=== PATIENT | male | born 1980 | race Caucasian/White ===

== ENCOUNTER 2016-06-28 16:41 | Inpatient (IN) | payer MEDICAID ==
[~2016-06-28] VITALS: Ht 165.1 cm; Wt 80.0 kg
[2016-06-28] MEDS ORDERED: SOD CHLORIDE 0.9% 1,000 ML IV STA ×2 (16:45→17:10)
[2016-06-28] MEDS ORDERED: AMIODARONE 150MG/D5W BOLUS IV* STA (16:45)
[2016-06-28] MEDS ORDERED: AMIODARONE 900MG/D5W DRIP 500 ML IV STA ×2 (16:45→18:17)
[2016-06-28] MEDS ORDERED: FENTAnyl 50 MCG/ML VIAL IV STA (16:50)
[2016-06-28] MEDS ORDERED: SODIUM CHLORIDE 0.9% 500 ML BAG IV* STA (16:50)
[2016-06-28] MEDS ORDERED: VECURONIUM 100 MG in DEXTROSE 5% 100 ML IV ONE (16:50)
[2016-06-28] MEDS ORDERED: MIDAZOLAM 1 MG/ML 2 ML INJ IV ONE ×3 (17:00→19:00)
[2016-06-28] MEDS ORDERED: MAGNESIUM SULFATE 1 GM/D5W 100 ML IVPB ONE (17:00)
[2016-06-28] MEDS ORDERED: FENTAnyl 50 MCG/ML VIAL IV PRN (17:00)
--- NOTE | 2016-06-28 17:00 | RADRPT ---
PROCEDURE: XR Chest. CLINICAL INDICATION: Chest Pain. TECHNIQUE: PA and Lateral views of the chest were obtained. COMPARISON: None. FINDINGS: The soft tissues are normal. The bony elements are normal. An endotracheal tube is positioned at T 3. Defibrillator pads are noted over the upper right chest wall and lower left chest wall. The sto mach is distended with air. There is a poor inspiration. The heart is mildly enlarged. The cardio mediastinal silhouette and hilar structures are normal. The pulmonary vasculature is normal. There i s a left-sided aorta. Then infiltrates are suspected in the right upper lobe. The costophrenic angl es are normal. IMPRESSION: 1. Gastrectasis. The stomach is distended with air. 2. Indicative is well-positioned at T3. 3. There are faint infiltrates in the right upper lobe. 4. Mild cardiomegaly. 5. Suboptimal inspiratory effort/expiratory phase radiograph. RPTAT:AAJJ Physician Fernanda Date Time Electronically viewed and signed by Reza Sanabria Physician on 06/28/2016 17:00 VEENA/
[2016-06-28 17:01] LABS: ADD SCAN DIFF NO
[2016-06-28 17:03] LABS: ABNORMAL IP MESSAGE 1; HEMATOCRIT 45.2 % (42.0-52.0); HEMOGLOBIN 14.4 g/dl (14.0-18.0); MEAN CORPUSCULAR HEMOGLOBIN 30.3 pg (29.0-33.0); MEAN CORPUSCULAR HGB CONC 31.9 g/dl (32.0-37.0); MEAN PLATELET VOLUME 9.5 fl (7.4-10.4); PLATELET COUNT 239 10^3/UL (140-415); RED BLOOD COUNT 4.76 10^6/ul (4.70-6.10); RED CELL DISTRIBUTION WIDTH 12.4 % (11.5-14.5); WHITE BLOOD COUNT 13.9 10^3/ul (4.8-10.8)
[2016-06-28 17:13] LABS: INR 1.07; PROTIME 13.9 Sec (12.2-14.2); PT RATIO 1.1
[2016-06-28 17:14] LABS: PARTIAL THROMBOPLASTIN TIME 32.5 Sec (25.0-35.0)
[2016-06-28 17:15] LABS: ALBUMIN 4.9 g/dl (3.3-4.9)
[2016-06-28 17:16] LABS: POTASSIUM 3.6 mmol/L (3.5-5.1)
[2016-06-28 17:18] LABS: ALBUMIN/GLOBULIN RATIO 1.53; BILIRUBIN,INDIRECT 0.3 mg/dl (0-1.1); BILIRUBIN,TOTAL 0.3 mg/dl (0.2-1.3); CREATININE 1.42 mg/dl (0.61-1.24); TOTAL PROTEIN 8.1 g/dl (6.1-8.1)
[2016-06-28 17:19] LABS: CALCIUM 9.1 mg/dl (8.4-10.2); MAGNESIUM 2.3 mg/dl (1.7-2.5); PHOSPHORUS 9.9 mg/dl (2.5-4.9)
--- NOTE | 2016-06-28 17:21 | ERA ---
ER Documentation Chief Complaint Date/Time DATE: 06/28/16 TIME: 17:16 Chief Complaint ROSC HPI 36-year-old male, unknown past medical history who presents after V. fib cardiac arrest. The patient had a witnessed cardiac arrest. The patient was apparently loading some materials into a truck and collapse. EMS on arrival, downtime less than 1 minute. The patient did not have an airway. He was in ventricular fibrillation, defibrillation 1, epinephrine 1 with return of spontaneous circulation, no spontaneous movement. The patient was brought to the emergency room. No further history is provided. Patient is critical on arrival but with pulses in a blood pressure. ROS Critical patient Medications Home Meds Unable to Obtain Active Prescriptions or Reported Meds Allergies Allergies: Coded Allergies: Unknown: Unable to obtain (Unverified , 06/28/16) PMhx/Soc Smoking Status: Unknown if ever smoked FmHx Critical patient, unknown Physical Exam Vitals Vital Signs Date Time Temp Pulse Resp B/P Pulse Ox O2 Delivery O2 Flow Rate FiO2 06/28/16 19:20 98 18 100 100 06/28/16 18:52 104 18 92/71 100 Mechanical Ventilator 06/28/16 18:00 146 20 125/79 100 Mechanical Ventilator 06/28/16 17:50 96.7 150 20 125/79 100 Mechanical Ventilator 06/28/16 17:15 118 20 107/70 100 Mechanical Ventilator 06/28/16 16:59 138 18 100 100 06/28/16 16:41 136 132/83 100 Physical Exam General: Unresponsive Head: Normocephalic, atraumatic Eyes: Fixed pupils ENT: Moist mucous membranes Neck: Supple, no lymphadenopathy Respiratory: Decreased spontaneous respirations Cardiovascular: No murmurs rubs or gallops, tachycardia Abdominal: Soft, non-protuberant, no pulsatile mass : Deferred MSK: No spontaneous motor activity Neurologic: No spontaneous neurologic activity Skin: No evidence of trauma Result Diagram: 06/28/16 1655 06/28/16 1655 Results 24 hrs Laboratory Tests Test 06/28/16 16:45 06/28/16 16:55 06/28/16 17:35 06/28/16 18:00 Blood Gas Specimen Source Blood arterial Arterial Blood Date Drawn 06/28/2016 6:18:38 PM Arterial Blood pH (Temp corrected) 7.252 Arterial Blood pCO2 (Temp correct) 33.9mmhg Arterial Blood pO2 (Temp corrected) 127.1mmHG Arterial Blood HCO3 14.6mmol/L Arterial Blood Base Excess -11.5mmol/L Arterial Blood Oxygen Saturation 97.6mmHG Christ Test ACCEPTAB Arterial Blood Gas Puncture Site Right Radial Arterial Blood Carboxyhemoglobin 0.3% Arterial Blood Methemoglobin 0.4% Blood Gas A-a O2 Differential 552.0mmHg Oxyhemoglobin Percent 96.9% Total Hemoglobin 14.6g/dl Blood Gas Temperature 37.0C Blood Gas Respiration Rate 18.0 Blood Gas Actual Respiration Rate 18 Blood Gas Modality VENT - AC FiO2 100.0% Blood Gas Tidal Volume 500.0mL Blood Gas Low PEEP Setting 5.0cmH2O Blood Gas Critical Value Read Back DR. DEAN Blood Gas Notified Whom Isidro Blood Gas Notified Time 06/28/2016 6:26:14 PM White Blood Count 13.910^3/ul Red Blood Count 4.7610^6/ul Hemoglobin 14.4g/dl Hematocrit 45.2% Mean Corpuscular Volume 95.0fl Mean Corpuscular Hemoglobin 30.3pg Mean Corpuscular Hemoglobin Concent 31.9g/dl Red Cell Distribution Width 12.4% Platelet Count 80892^3/UL Mean Platelet Volume 9.5fl Neutrophils % 38.0% Band Neutrophils % 10.0% Lymphocytes % 33.0% Reactive Lymphocytes % 13.0% Monocytes % 2.0% Eosinophils % 3.0% Basophils % 1.0% Neutrophils # 5.310^3/ul Lymphocytes # 4.610^3/ul Monocytes # 0.310^3/ul Eosinophils # 0.410^3/ul Basophils # 0.110^3/ul Platelet Estimate PLT APPEAR ADEQUATE Large Platelets OCCASIONAL Prothrombin Time 13.9Sec Prothrombin Time Ratio 1.1 INR International Normalized Ratio 1.07 Activated Partial Thromboplast Time 32.5Sec Sodium Level 144mmol/L Potassium Level 3.6mmol/L Chloride Level 104mmol/L Carbon Dioxide Level 11mmol/L Anion Gap 33 Blood Urea Nitrogen 19mg/dl Creatinine 1.42mg/dl Glucose Level 254mg/dl Calcium Level 9.1mg/dl Phosphorus Level 9.9mg/dl Magnesium Level 2.3mg/dl Total Bilirubin 0.3mg/dl Direct Bilirubin 0.00mg/dl Indirect Bilirubin 0.3mg/dl Aspartate Amino Transf (AST/SGOT) 788IU/L Alanine Aminotransferase (ALT/SGPT) 1062IU/L Alkaline Phosphatase 84IU/L Troponin I 0.026ng/ml B-Type Natriuretic Peptide 301PG/ML Total Protein 8.1g/dl Albumin 4.9g/dl Globulin 3.20g/dl Albumin/Globulin Ratio 1.53 Ethyl Alcohol Level < 10.0mg/dl Lactic Acid Level 6.1mmol/L Urine Color LT. YELLOW Urine Clarity CLEAR Urine pH 6.0 Urine Specific [place] 1.025 Urine Ketones NEGATIVE Urine Nitrite NEGATIVE Urine Bilirubin NEGATIVE Urine Urobilinogen 0.2 E.U./dL Urine Leukocyte Esterase NEGATIVE Urine Microscopic RBC 5-10/HPF Urine Microscopic WBC 0-2/HPF Urine Squamous Epithelial Cells RARE Urine Bacteria MODERATE Urine Hemoglobin 2+ Urine Glucose 0.1%% Urine Total Protein 2+ Urine Opiates Screen Negative Urine Barbiturates Negative Urine Amphetamines Screen Negative Urine Benzodiazepines Screen Positive Urine Cocaine Screen Negative Urine Cannabinoids Negative Test 06/28/16 19:55 Lactic Acid Level 3.4mmol/L Current Medications Medications (Trade) Dose Ordered Sig/Antoine Route PRN Reason Start Time Stop Time Status Last Admin Dose Admin Sodium Chloride 1,000 ml @ 1,000 mls/hr Q1H STAT IV 06/28/16 16:45 06/28/16 17:44 DC 06/28/16 16:45 Magnesium Sulfate/ Dextrose (Magnesium Sulfate 1 Gm/D5W) 100 ml @ 100 mls/hr ONCE ONCE IVPB 06/28/16 17:00 06/28/16 17:59 DC 06/28/16 17:03 Amiodarone HCl 100 ml 100 ml ONCE STAT IV* 06/28/16 16:45 06/28/16 16:49 DC 06/28/16 17:15 Amiodarone HCl (Cordarone 900mg/ D5W Drip) 500 ml @ 0 mls/hr ONCE STAT IV 06/28/16 16:45 06/28/16 16:49 DC Sodium Chloride (NS) 500 ml ONCE STAT IV* 06/28/16 16:50 06/28/16 16:52 DC 06/28/16 17:49 Fentanyl (Sublimaze) 50 mcg ONCE STAT IV 06/28/16 16:50 06/28/16 16:52 DC 06/28/16 17:08 Fentanyl (Sublimaze) 25 mcg Q10M PRN IV SEDATION 06/28/16 17:00 Midazolam HCl 2 mg 2 mg ONCE ONCE IV 06/28/16 17:00 06/28/16 17:01 DC 06/28/16 17:05 Midazolam HCl 50 ml @ 2 mls/hr ONCE IV 06/28/16 17:00 06/28/16 18:13 Vecuronium [place] 100 mg/ Dextrose 100 ml @ 4.38 mls/hr [id number] ONCE IV 06/28/16 16:50 06/28/16 17:09 DC Vecuronium [place] 100 mg/ Sodium Chloride 100 ml @ 4.38 mls/hr [id number] ONCE IV 06/28/16 17:30 06/29/16 16:19 06/28/16 18:27 Sodium Chloride (NS) 1,000 ml @ 1,000 mls/hr Q1H STAT IV 06/28/16 17:10 06/28/16 18:09 DC 06/28/16 17:56 Fentanyl (Sublimaze) 100 mcg ONCE ONCE IV 06/28/16 18:00 06/28/16 18:01 DC 06/28/16 17:57 Midazolam HCl (Versed) 2 mg ONCE ONCE IV 06/28/16 18:00 06/28/16 18:01 DC 06/28/16 17:56 Aspirin 300 mg 300 mg ONCE ONCE WA 06/28/16 18:00 06/28/16 18:01 DC 06/28/16 18:09 Amiodarone HCl (Cordarone 900mg/ D5W Drip) 500 ml @ 0 mls/hr ONCE STAT IV 06/28/16 18:17 06/28/16 18:18 DC 06/28/16 18:56 Fentanyl (Sublimaze) 100 mcg ONCE ONCE IV 06/28/16 19:00 06/28/16 19:01 DC 06/28/16 18:45 Midazolam HCl 2 mg 2 mg ONCE ONCE IV 06/28/16 19:00 06/28/16 19:01 DC 06/28/16 18:45 Fentanyl (Sublimaze) 100 ml @ 2.5 mls/hr TITRATE IV 06/28/16 19:00 06/28/16 19:18 IV Flush 10 ml 10 ml STK-MED ONCE .ROUTE 06/28/16 19:06 06/28/16 19:07 DC 06/28/16 19:40 Sodium Chloride 100 ml @ ud STK-MED ONCE .ROUTE 06/28/16 19:06 06/28/16 19:07 DC 06/28/16 19:41 Iohexol (Omnipaque) 0 ml @ ud STK-MED ONCE .ROUTE 06/28/16 19:06 06/28/16 19:07 DC Iodixanol 100 ml 100 ml STK-MED ONCE .ROUTE 06/28/16 19:06 06/28/16 19:07 DC 06/28/16 19:41 Vancomycin HCl 250 ml @ 125 mls/hr ONCE STAT IVPB 06/28/16 20:31 06/28/16 22:30 Piperacillin Sod/ Tazobactam Sod 100 ml @ 200 mls/hr ONCE ONCE IVPB 06/28/16 21:00 06/28/16 21:29 Clindamycin HCl/ Dextrose 50 ml @ 100 mls/hr ONCE ONCE IVPB 06/28/16 21:00 06/28/16 21:29 Sodium Chloride (NS) 1,000 ml @ 100 mls/hr Q10H IV 06/28/16 20:42 UNV Famotidine (Pepcid Iv) 20 mg Q12 IV 06/28/16 21:00 UNV Procedures/MDM EKG, MONITORS, & DIAGNOSTIC IMAGING: Rhythm strip: Rate/Rhythm: Sinus tachycardia, subtle ST depressions in precordial leads, significant artifact Impression: Potential ischemia EKG: I reviewed and interpreted a 12-lead EKG. Rhythm: Sinus tachycardia Ectopy: None Intervals: No abnormalities, normal QRS and QTC, no delta waves ST segments: No elevations or depressions T waves: No contiguous inversions Chest x-ray #1 Chest x-ray: I reviewed and interpreted a 1 view of the chest Mediastinum: No enlargement Cardiac silhouette: No cardiomegaly Airspace: Clear lung chavez bilaterally without evidence of pneumothorax Bones: No evidence of fracture Endotracheal tube in good position Chest x-ray #2 Chest x-ray: I reviewed and interpreted a 1 view of the chest Mediastinum: No enlargement Cardiac silhouette: No cardiomegaly Airspace: Clear lung chavez bilaterally without evidence of pneumothorax Bones: No evidence of fracture Endotracheal tube in good position, central line in good position CT brain: No acute intracranial process CT cervical spine: No acute fracture CTPA: IMPRESSION: No definite evidence of pulmonary emboli. Bilateral lower lobe atelectasis/ consolidation and bilateral upper lobe partial atelectasis. Diffuse "ground- glass" lung densities most suggestive of pulmonary edema. Please see above. RPTAT: HJES PROCEDURES: Central Line Note: Consent: Critical Indication: Critically ill patient requiring specialized vascular access for fluid or pressor management Location: Right IJ Procedure: Sterile procedure was observed throughout insertion of the central line. The insertion site was prepped with sterile solution. Ultrasound-guided identification of the vein was performed. Insertion of a needle into the vein was obtained with return of dark, nonpulsatile blood. The wire was then threaded through the needle without complication. The wire was then identified within the vein using ultrasound. A small skin incision was made, the needle was removed intact, dilation of the vein was performed and insertion of a triple lumen catheter was completed. The catheter was then sutured to the skin. All 3 ports jamaal back and flushed without difficulty. A sterile dressing was applied. The patient tolerated the procedure well there were no complications. Emergency Bedside Ultrasound: Indication: Central line Probe Type: Linear Findings: Dynamic ultrasound utilizing compressive technique with both linear and horizontal views, additional images showing wire within the venous system were obtained. The images were saved along with patient information on a paper chart to be scanned into EMR. The patient tolerated the procedure well and there were no complications. A post-line chest x-ray was ordered as indicated. Intubation Note: Indication: Airway protection Consent: This was an emergent situation, implied consent was observed RSI Medications: Etomidate 20 mg, Rocuronium 100 mg Tube size: 7.5 Secured at: 23 Procedure: Endotracheal intubation was performed. The patient was preoxygenated with supplemental oxygen, the room was set up with emergent airway equipment including [id number], suction, adjunct airways. Direct visualization of the cords was performed with direct laryngoscopy using a 4.0 Mac blade, insertion of the endotracheal tube through the cords was visualized by the non acoustic operator. Bilateral breath sounds were auscultated, color change was observed. The tube was then secured in a postintubation chest x-ray was ordered. The patient tolerated the procedure well there were no complications. LAB INTERPRETATION: Slight leukocytosis, lactic acid, mild renal insufficiency, ABG with significant AA gradient, shunt physiology MEDICAL DECISION MAKING: The patient presents with ventricular fibrillation cardiac arrest with minimal downtime. The patient has no spontaneous neurologic activity upon arrival. The patient has return of spontaneous circulation. Patient is a candidate for hypothermia protocol. Unclear etiology likely cardiogenic versus arrhythmia genic. The patient's initial EKG in the field was concerning for possible cardiac ischemia prompting STEMI code activation. Prompt conversation and discussion with the on-call settlement processor, Dr. Waller. She reviewed the EKG is in the case. She does not feel the patient is a candidate for emergent Personal Banking Officer activation. She recommends medical management, prompt cardiology and EP consultation. The patient was intubated upon arrival.. The patient was started on hypothermic protocol given no spontaneous neurologic activity, no contraindications. A central line was placed to facilitate hypothermia protocol. A CT imaging of the brain and cervical spine were ordered though there was no significant evidence of trauma the patient did collapse to the ground. The patient was started emergently on magnesium, amiodarone bolus and drip. The patient remained symptomatically stable the sinus tachycardia. IV fluids initiated, blood cultures initiated. No evidence of sepsis. ER COURSE: The patient was started on hypothermia protocol. The patient had intermittent movement of upper extremities but no movement of lower extremities. CT imaging of the head and cervical spine are negative. The patient's arterial blood gas shows evidence of shunt physiology. This reason the concern for possible aspiration versus PE. CTPA ordered. The benefits outweigh the risks given the patient's creatinine. IV fluid initiated. The patient received 2.5 L, greater than 30 cc/kg bolus of saline. Blood cultures taken. Lactic acid elevated likely secondary to the patient's cardiac arrest. The patient's CT shows evidence of possible atelectasis versus infiltrates. Given the possibility of aspiration I believe empiric coverage with vancomycin, Zosyn and clindamycin would be reasonable. The patient does have leukocytosis and lactic acidosis but I believe these are secondary to the patient's cardiac arrest rather than sepsis. I do not believe this is consistent with sepsis however the patient has been empirically treated. The patient's blood pressure remained stable and lactic acid is clean. No indication for pressors at this time. No family information is available at this time DISPOSITION PLAN: ICU CONSULTATION: Cardiology, interventional: Dr. Waller Accepting care team and consultations: I discussed the current laboratory data, diagnostic imaging and emergency care provided. Admitting team: Dr. Borrero Admitting team indication: Insurance directed Critical Care Note: Total time: 71 minutes Indication/Organ System Threat: Cardiac arrest with return of spontaneous circulation I spent the above amount of critical care time with the patient, not including billable procedures. This included chart review, consultations, repeat bedside evaluations, and titration of appropriate medications to prevent cardiopulmonary or respiratory collapse. Departure Diagnosis: Primary Impression: Cardiac arrest Additional Impressions: Aspiration pneumonia Qualified Code: J69.0 - Aspiration pneumonia, unspecified aspiration pneumonia type, unspecified laterality, unspecified part of lung Lactic acidosis Ventricular fibrillation Acute renal insufficiency Condition: Critical NEHEMIAS DEAN MD Jun 28, 2016 17:21
[2016-06-28 17:30] LABS: TROPONIN-I 0.026 ng/ml (0.00-0.12)
[2016-06-28] MEDS ORDERED: VECURONIUM IV ONE (17:30)
[2016-06-28] MEDS ORDERED: SOD CHLORIDE 0.9% IV ONE (17:30)
--- NOTE | 2016-06-28 17:37 | RADRPT ---
PROCEDURE: CT Cervical Spine without contrast. CLINICAL INDICATION: Trauma. Neck pain. TECHNIQUE: Helical axial sections were obtained through the cervical spine without intravenous con trast enhancement. Sagittal and coronal reformatted images were accomplished using the data from th e axial images. Total exam DLP is 437.46 mGy-cm. CTDIvol is 22.16 mGy. One or more of the followi ng dose reduction techniques were used: Automated exposure control, adjustment of the mA and/or kV a ccording to patient size, use of iterative reconstruction technique. COMPARISON: No prior studies are available for comparison. FINDINGS: There is normal stature and alignment of the vertebrae. There is no fracture. The disk height is normal. There is no lytic or blastic lesion. The paravertebral soft tissues are normal. There is an endotracheal tube present and there is a right internal jugular vein catheter present. The distal tips of the endotracheal tube and right IJ catheter are not visualized. IMPRESSION: 1. Normal cervical spine with no fracture or malalignment. 2. Endotracheal tube and right IJ catheter. RPTAT: QQ .Oscar Velazquez MD, MD Date Time Electronically viewed and signed by .Oscar Velazquez MD, on 06/28/2016 17:37 .R/
--- NOTE | 2016-06-28 17:39 | RADRPT ---
PROCEDURE: CT Brain without contrast. CLINICAL INDICATION: Trauma. Headache. TECHNIQUE: A CT of the brain without contrast was performed utilizing axial sections from the skul l base through the vertex. The patient was scanned without intravenous contrast enhancement. Sagitta l and coronal reformatted images were obtained using the data from the axial images. Total exam DLP is 720.23 mGy-cm. CTDIvol is 44.33 mGy. One or more of the following dose reduction techniques we re used: Automated exposure control, adjustment of the mA and/or kV according to patient size, use o f iterative reconstruction technique. COMPARISON: None available FINDINGS: There is normal whitten-white matter differentiation. The ventricles and cisterns are normal. There is no intracranial hemorrhage or space-occupying lesion. There is no skull fracture or lytic lesion. IMPRESSION: 1. Normal noncontrast CT scan of the brain. 2. No intracranial hemorrhage. RPTAT: QQ .Oscar Velazquez MD, MD Date Time Electronically viewed and signed by .Oscar Velazquez MD, MD on 06/28/2016 17:39 .R/
--- NOTE | 2016-06-28 17:46 | RADRPT ---
PROCEDURE: XR Chest. CLINICAL INDICATION: Check central line position. TECHNIQUE: Single frontal view. 06/28/2016. 1734 hours. COMPARISON: 06/28/2016. 1645 hours. FINDINGS: There is a new right internal jugular vein catheter with the tip in the mid superior vena cava. The endotracheal tube should be advanced approximately 2 cm as the tip is at the level of the mid clavi cles and is 4 cm above the tabatha. There is mild diffuse air space and interstitial disease consist ent with pulmonary edema. There is no focal airspace disease. The heart is mildly enlarged. There is no pleural effusion. There is no pneumothorax. IMPRESSION: 1. Right IJ catheter in satisfactory position. No pneumothorax. 2. Endotracheal tube should be advanced approximately 2 cm. 3. New pulmonary edema. 4. Mild cardiomegaly. RPTAT: QQ .Oscar Velazquez MD, Date Time Electronically viewed and signed by .Oscar Velazquez MD, on 06/28/2016 17:46 .R/
[2016-06-28 17:55] LABS: ETHANOL < 10.0 mg/dl
[2016-06-28 17:59] LABS: BASOPHIL # 0.1 10^3/ul (0.0-0.1); EOSINOPHILS # 0.4 10^3/ul (0.0-0.5); LYMPHOCYTES # 4.6 10^3/ul (0.8-2.9); MONOCYTE # 0.3 10^3/ul (0.3-0.9); NEUTROPHIL # 5.3 10^3/ul (1.6-7.5)
[2016-06-28 18:00] LABS: PLATELET ESTIMATE PLT APPEAR ADEQUATE
[2016-06-28] MEDS ORDERED: ASPIRIN 300 MG SUPP PR ONE (18:00)
[2016-06-28] MEDS ORDERED: FENTAnyl 50 MCG/ML VIAL IV ONE ×2 (18:00→19:00)
[2016-06-28] MEDS: MIDAZOLAM (DRIP) 50 mg/50 mL 50 ML IV SCH (18:13)
[2016-06-28 18:26] LABS: ADD UMIC YES; URINE BILIRUBIN (Dip) NEGATIVE (NEGATIVE); URINE BLOOD (Dip) 2+ (NEGATIVE); URINE COLOR LT. YELLOW (YELLOW); URINE KETONES (Dip) NEGATIVE (NEGATIVE); URINE LEUKOCYTE ESTERASE (Dip) NEGATIVE (NEGATIVE); URINE NITRITE (Dip) NEGATIVE (NEGATIVE); URINE TOTAL PROTEIN (Dip) 2+ (NEGATIVE); URINE UROBILINOGEN (Dip) 0.2 E.U./dL (0.1-1.0)
[2016-06-28 18:26] LABS: Allen Test ACCEPTAB; Arterial Base Excess -11.5 mmol/L (-3.0-3); Arterial COHb 0.3 % (0.0-3.0); Arterial Fraction of Oxyhgb 96.9 % (93.0-99.0); Arterial HCO3 14.6 mmol/L (22.0-26.0); Arterial MetHb 0.4 % (0.0-1.5); Arterial Total Hemglobin 14.6 g/dl (12.0-18.0); MODE VENT - AC
[2016-06-28 18:37] LABS: BACTERIA,URINE MODERATE; SQUAMOUS EPITHELIAL CELL,UR RARE
[2016-06-28] MEDS ORDERED: SOD CHLORIDE 0.9% 100 ML ONE (19:06)
[2016-06-28] MEDS ORDERED: IOHEXOL 0 ML ONE (19:06)
[2016-06-28] MEDS ORDERED: IODIXANOL LOCM 100 ML BTL ONE (19:06)
[2016-06-28] MEDS: FENTAnyl (DRIP) 1000 mcg/100mL 100 ML IV SCH (19:18)
[2016-06-28 19:24] LABS: BENZODIAZEPINES Positive (NEGATIVE)
[2016-06-28 19:28] LABS: BARBITURATES Negative (NEGATIVE); CANNABINOIDS Negative (NEGATIVE); COCAINE Negative (NEGATIVE); OPIATES Negative (NEGATIVE)
--- NOTE | 2016-06-28 20:29 | RADRPT ---
PROCEDURE: CTA Chest and pulmonary angiogram. CLINICAL INDICATION: Rule out pulmonary emboli, respiratory failure TECHNIQUE: CT scan of the chest and CT pulmonary angiogram was performed on a multidetector high-r [employer]olution CT scanner. High-resolution thin slice coronal and sagittal imaging was obtained from the axial source images. The patient was examined following the intravenous administration of 90 cc of Visipaque 320. The images were reviewed on a PACS workstation. The total exam CTDI equals 53.84 +2 3.71 mGy, and the total exam DLP equals 900.13 mGy-cm. One or more the following dose reduction techniques were utilized: Automated exposure control, adjus tment of the mA/ or kV according to patient's size, or use of iterative reconstruction technique. COMPARISON: Chest x-ray of 06/28/2016 FINDINGS: The tip of the endotracheal tube is approximately 3.5 cm above the tabatha. Right jugular catheter t ip in superior vena cava. Nasogastric tube tip in proximal duodenum. There is beam-hardening artif act arising from dense contrast in the superior vena cava projected over right upper lobe pulmonary arteries limiting evaluation of these arteries. No definite filling defects suggestive of emboli ar e seen in main, lobar or segmental pulmonary arteries. No thoracic aortic aneurysm or dissection is seen. No enlarged mediastinal lymph nodes are seen. No pleural effusion is seen. There is bilater al lower lobe atelectasis/consolidation and bilateral upper lobe partial atelectasis. There is diff use "ground-glass" lung densities most suggestive of pulmonary edema. IMPRESSION: No definite evidence of pulmonary emboli. Bilateral lower lobe atelectasis/consolidation and bilat eral upper lobe partial atelectasis. Diffuse "ground-glass" lung densities most suggestive of pulmon zhen edema. Please see above. RPTAT: HJES .Mateo Mi MD, MD Date Time Electronically viewed and signed by .Mateo Mi MD, on 06/28/2016 20:29 .S/
[2016-06-28] MEDS ORDERED: VANCOMYCIN 1 GM (PMX) 250 ML IVPB STA (20:31)
--- NOTE | 2016-06-28 20:41 | HP ---
Date/Time of Note Date/Time of Note DATE: 06/28/16 TIME: 20:39 Assessment/Plan VTE Prophylaxis VTE Prophylaxis Intervention: heparin Lines/Catheters IV Catheter Type (from Nrsg): Central Line Central line still needed: Yes (Critical Care Patient) Assessment/Plan Assessment/Plan 1) Cardiac arrest with Respiratory Failure - Admit to ICU - Mechanical Ventilation - Continue Hypothermic Therapy - Maintain Sedation, Anticoagulation and Pressure Support - Skid Adzer - already Consulted x 2 via phone through the ED. No procedure indicated. - Cardiology Consult - Echocardiogram - Unable to do STAT in the ED so ordered Urgent in the AM - CONSULT: Critical Care - Dr. Martinez notified 2) Aspiration pneumonia and/or Pulmonary edema - IV ABX: Clindamycin, Zosyn and Vancomycin - Lasix if urine output drops 3) Lactic acidosis, afebrile, WBCs not elevated. - IV hydration - Serial BMPs and ABGs as needed - Serial Lactic Acids until resolved 4) Ventricular fibrillation - Monitor 5) Acute Renal Injury, mild to moderate injury depending on baseline - Monitor. No specific treatment at this time. HPI/ROS Admit Date/Time Admit Date/Time 06/28/16 2242 Hx of Present Illness Cardiac Arrest in field with spontaneous ROSC after shock. No spontaneous movement here per ER Physician. No intervention per Dr. Waller - Skid Adzer.. On Hypothermia Protocol. Possible Aspiration Pneumonia. Minimal, additional history from ER Physician Notes: 36-year-old male, unknown past medical history who presents after V. fib cardiac arrest. The patient had a witnessed cardiac arrest. The patient was apparently loading some materials into a truck and collapse. EMS on arrival, downtime less than 1 minute. The patient did not have an airway. He was in ventricular fibrillation, defibrillation 1, epinephrine 1 with return of spontaneous circulation, no spontaneous movement. The patient was brought to the emergency room. No further history is provided. Patient is critical on arrival but with pulses in a blood pressure. ER COURSE per ER Physician: The patient presents with ventricular fibrillation cardiac arrest with minimal downtime. The patient has no spontaneous neurologic activity upon arrival. The patient has return of spontaneous circulation. Patient is a candidate for hypothermia protocol. Unclear etiology likely cardiogenic versus arrhythmia genic. The patient's initial EKG in the field was concerning for possible cardiac ischemia prompting STEMI code activation. Prompt conversation and discussion with the on-call rotary screen printing machine operator, Dr. Waller. She reviewed the EKG is in the case. She does not feel the patient is a candidate for emergent Computer Technical Support Specialist activation. She recommends medical management, prompt cardiology and EP consultation. The patient was intubated upon arrival.. The patient was started on hypothermic protocol given no spontaneous neurologic activity, no contraindications. A central line was placed to facilitate hypothermia protocol. A CT imaging of the brain and cervical spine were ordered though there was no significant evidence of trauma the patient did collapse to the ground. The patient was started emergently on magnesium, amiodarone bolus and drip. The patient remained symptomatically stable the sinus tachycardia. IV fluids initiated, blood cultures initiated. No evidence of sepsis. No family information is available at this time ROS Subjective hx not possible: pt critical PMH/Family/Social Past Medical History Medical History: other (Unknown) Past Surgical History Past Surgical Hx: other (Unknown) Family History Significant Family History: other (Unknown) Social History Smoking Status: Unknown if ever smoked Drug Use: other (Unknown) Exam/Review of Systems Vital Signs Vitals Vital Signs Date Time Temp Pulse Resp B/P Pulse Ox O2 Delivery O2 Flow Rate FiO2 06/28/16 19:20 98 18 100 100 06/28/16 18:52 92/71 Mechanical Ventilator 06/28/16 17:50 96.7 Exam Exam Physical Exam General: Patient is intubated and sedated. Head: Normocephalic, atraumatic ENT: Moist mucous membranes Neck: No lymphadenopathy Respiratory: Ventilated Cardiovascular: Regular Rhythm, Rate is on the Tachy Side. No murmur appreciated. Abdominal: Soft, non-protuberant, no pulsatile mass : Deferred MSK: Normal muscle bulk. No further assessment possible due to sedation. Neurologic: Sedated Skin: Hypothermic Therapy initiated. Labs Result Diagram: 06/28/16 1655 06/28/16 165 Medications Medications Home Medications: Unknown Current Medications Medications (Trade) Dose Ordered Sig/Antoine Route PRN Reason Start Time Stop Time Status Last Admin Dose Admin Sodium Chloride 1,000 ml @ 1,000 mls/hr Q1H STAT IV 06/28/16 16:45 06/28/16 17:44 Magnesium Sulfate/ Dextrose (Magnesium Sulfate 1 Gm/D5W) 100 ml @ 100 mls/hr ONCE ONCE IVPB 06/28/16 17:00 06/28/16 17:59 06/28/16 17:03 Amiodarone HCl 100 ml 100 ml ONCE STAT IV* 06/28/16 16:45 06/28/16 16:49 DC Amiodarone HCl (Cordarone 900mg/ D5W Drip) 500 ml @ 0 mls/hr ONCE STAT IV 06/28/16 16:45 06/28/16 16:49 DC Sodium Chloride (NS) 500 ml ONCE STAT IV* 06/28/16 16:50 06/28/16 16:52 DC Fentanyl (Sublimaze) 50 mcg ONCE STAT IV 06/28/16 16:50 06/28/16 16:52 DC 06/28/16 17:08 Fentanyl (Sublimaze) 25 mcg Q10M PRN IV SEDATION 06/28/16 17:00 Midazolam HCl 2 mg 2 mg ONCE ONCE IV 06/28/16 17:00 06/28/16 17:01 DC 06/28/16 17:05 Midazolam HCl 50 ml @ 2 mls/hr ONCE IV 06/28/16 17:00 Vecuronium [place] 100 mg/ Dextrose 100 ml @ 4.38 mls/hr [id number] ONCE IV 06/28/16 16:50 06/28/16 17:09 DC Vecuronium [place] 100 mg/ Sodium Chloride 100 ml @ 4.38 mls/hr [id number] ONCE IV 06/28/16 17:30 06/29/16 16:19 Sodium Chloride (NS) 1,000 ml @ 1,000 mls/hr Q1H STAT IV 06/28/16 17:10 06/28/16 18:09 Procedures Procedures Laboratory Tests Test 06/28/16 16:55 White Blood Count 13.910^3/ul Red Blood Count 4.7610^6/ul Hemoglobin 14.4g/dl Hematocrit 45.2% Mean Corpuscular Volume 95.0fl Mean Corpuscular Hemoglobin 30.3pg Mean Corpuscular Hemoglobin Concent 31.9g/dl Red Cell Distribution Width 12.4% Platelet Count 68281^3/UL Mean Platelet Volume 9.5fl Prothrombin Time 13.9Sec Prothrombin Time Ratio 1.1 INR International Normalized Ratio 1.07 Activated Partial Thromboplast Time 32.5Sec EKG and Rhytm Strip: Interpreted by ER Physician: Rhythm strip: Rate/Rhythm: Sinus tachycardia, subtle ST depressions in precordial leads, significant artifact Impression: Potential ischemia EKG: Rhythm: Sinus tachycardia Ectopy: None Intervals: No abnormalities, normal QRS and QTC, no delta waves ST segments: No elevations or depressions T waves: No contiguous inversions RADIOLOGY: PROCEDURE: CT Brain without contrast. CLINICAL INDICATION: Trauma. Headache. COMPARISON: None available FINDINGS: There is normal whitten-white matter differentiation. The ventricles and cisterns are normal. There is no intracranial hemorrhage or space-occupying lesion. There is no skull fracture or lytic lesion. IMPRESSION: 1. Normal noncontrast CT scan of the brain. 2. No intracranial hemorrhage. PROCEDURE: CTA Chest and pulmonary angiogram. CLINICAL INDICATION: Rule out pulmonary emboli, respiratory failure COMPARISON: Chest x-ray of 06/28/2016 FINDINGS: The tip of the endotracheal tube is approximately 3.5 cm above the tabatha. Right jugular catheter tip in superior vena cava. Nasogastric tube tip in proximal duodenum. There is beam-hardening artifact arising from dense contrast in the superior vena cava projected over right upper lobe pulmonary arteries limiting evaluation of these arteries. No definite filling defects suggestive of emboli are seen in main, lobar or segmental pulmonary arteries. No thoracic aortic aneurysm or dissection is seen. No enlarged mediastinal lymph nodes are seen. No pleural effusion is seen. There is bilateral lower lobe atelectasis/consolidation and bilateral upper lobe partial atelectasis. There is diffuse "ground-glass" lung densities most suggestive of pulmonary edema. IMPRESSION: No definite evidence of pulmonary emboli. Bilateral lower lobe atelectasis/ consolidation and bilateral upper lobe partial atelectasis. Diffuse "ground- glass" lung densities most suggestive of pulmonary edema. Please see above. PROCEDURE: CT Cervical Spine without contrast. CLINICAL INDICATION: Trauma. Neck pain. COMPARISON: No prior studies are available for comparison. FINDINGS: There is normal stature and alignment of the vertebrae. There is no fracture. The disk height is normal. There is no lytic or blastic lesion. The paravertebral soft tissues are normal. There is an endotracheal tube present and there is a right internal jugular vein catheter present. The distal tips of the endotracheal tube and right IJ catheter are not visualized. IMPRESSION: 1. Normal cervical spine with no fracture or malalignment. 2. Endotracheal tube and right IJ catheter. PROCEDURES: Central Line and Intubation done in the ED. Departure Diagnosis: Primary Impression: Cardiac arrest Additional Impression: Ventricular fibrillation FLORIAN WU DO Jun 28, 2016 20:41 ICU CONSULTATION: Cardiology, interventional: Dr. Waller Departure Diagnosis: Primary Impression: Cardiac arrest Additional Impression: Ventricular fibrillation FLORIAN WU DO Jun 28, 2016 20:41 FLORIAN WU DO Jun 28, 2016 20:41
[2016-06-28] MEDS ORDERED: PIPER-TAZO 3.375 GM IV (PMX) 100 ML IVPB ONE (21:00)
[2016-06-28] MEDS ORDERED: CLINDAMYCIN 900 MG/D5W (PMX) 50 ML IVPB ONE (21:00)
[2016-06-28] MEDS: FAMOTIDINE 20 MG INJ IV SCH (21:24)
[2016-06-28] MEDS: SOD CHLORIDE 0.9% 1,000 ML IV SCH (21:25)
[2016-06-28 21:45] LABS: CK-MB 28.6 ng/ml (0.0-2.4)
[2016-06-28 21:48] LABS: TROPONIN-I 3.72 ng/ml (0.00-0.12)
[2016-06-28 22:05] LABS: CREATININE 0.85 mg/dl (0.61-1.24)
[2016-06-28 22:06] LABS: CALCIUM 7.3 mg/dl (8.4-10.2); PHOSPHORUS 3.7 mg/dl (2.5-4.9)
[2016-06-28] MEDS ORDERED: HEPARIN 25000 UNITS/250 ML 250 ML IV STA (22:51)
[2016-06-28] MEDS ORDERED: HEPARIN 1000 UNITS/ML 10 ML INJ IV STA (22:51)
[2016-06-28] MEDS ORDERED: VANCOMYCIN IV PER PHARMACY XX SCH (23:00)
[2016-06-29 00:52] LABS: AADO2 Arterial 629.4 mmHg (7.0-24.0); Arterial Base Excess -10.3 mmol/L (-3.0-3); Arterial COHb 0.3 % (0.0-3.0); Arterial Fraction of Oxyhgb 92.3 % (93.0-99.0); Arterial HCO3 16.5 mmol/L (22.0-26.0); Arterial MetHb 0.3 % (0.0-1.5); Arterial Total Hemglobin 15.7 g/dl (12.0-18.0); MODE VENT - AC
[2016-06-29 01:05] LABS: ADD SCAN DIFF NO
[2016-06-29 01:06] LABS: BASOPHIL # 0.1 10^3/ul (0.0-0.1); BASOPHILS % 0.3 % (0.0-2.0); EOSINOPHILS % 0.1 % (0.0-7.0); HEMATOCRIT 47.1 % (42.0-52.0); LYMPHOCYTES # 1.8 10^3/ul (0.8-2.9); LYMPHOCYTES % 10.1 % (15.0-51.0); MEAN CORPUSCULAR HEMOGLOBIN 30.7 pg (29.0-33.0); MEAN CORPUSCULAR HGB CONC 31.8 g/dl (32.0-37.0); MEAN CORPUSCULAR VOLUME 96.5 fl (82.0-101.0); MEAN PLATELET VOLUME 9.5 fl (7.4-10.4); MONOCYTE # 1.4 10^3/ul (0.3-0.9); MONOCYTES % 7.9 % (0.0-11.0); NEUTROPHIL # 14.4 10^3/ul (1.6-7.5); NEUTROPHILS % 80.9 % (39.0-77.0); PLATELET COUNT 185 10^3/UL (140-415); RED BLOOD COUNT 4.88 10^6/ul (4.70-6.10); RED CELL DISTRIBUTION WIDTH 12.7 % (11.5-14.5); WHITE BLOOD COUNT 17.8 10^3/ul (4.8-10.8)
[2016-06-29 01:21] LABS: PHOSPHORUS 3.6 mg/dl (2.5-4.9)
--- NOTE | 2016-06-29 01:33 | RADRPT ---
PROCEDURE: Portable chest x-ray. CLINICAL INDICATION: Nasogastric tube placement. TECHNIQUE: Portable AP view of the chest. COMPARISON: 06/28/2016 at 05:34 p.m. FINDINGS: An endotracheal tube terminates approximately 4.2 cm above the tabatha. A nasogastric tube terminates in the stomach. A right central venous catheter terminates in the SVC. Transcutaneous pacer pads pr oject over the chest. Pulmonary edema is not significantly changed. The cardiac silhouette is mild ly enlarged. No pleural effusion is seen. There is no pneumothorax. IMPRESSION: 1. Endotracheal tube tip approximately 4.2 cm above the tabatha. 2. Nasogastric tube tip in the stomach. 3. Pulmonary edema, not significantly changed. 4. Mildly enlarged cardiac silhouette. RPTAT: HTAR .Billy Dailey MD, Date Time Electronically viewed and signed by .Billy Dailey MD, on 06/29/2016 01:33 .R/
[2016-06-29 02:45] VITALS: Ht 165.1 cm; Wt 80.0 kg
[2016-06-29 02:48] VITALS: BP 113/88; PULSE 87; RESP 18
[2016-06-29 03:36] LABS: POTASSIUM 3.2 mmol/L (3.5-5.1)
[2016-06-29 03:38] LABS: ALBUMIN/GLOBULIN RATIO 1.29; BILIRUBIN,INDIRECT 0.5 mg/dl (0-1.1); BILIRUBIN,TOTAL 0.5 mg/dl (0.2-1.3); CREATININE 0.62 mg/dl (0.61-1.24); TOTAL PROTEIN 7.1 g/dl (6.1-8.1)
[2016-06-29 03:39] LABS: CALCIUM 7.1 mg/dl (8.4-10.2)
[2016-06-29 04:13] VITALS: PULSE 90
[2016-06-29] MEDS ORDERED: DEXTROSE 50% 50 ML SYRINGE IV PRN ×2 (04:30)
[2016-06-29] MEDS ORDERED: INSULIN HUMAN REGULAR 100 UNIT in SOD CHLORIDE 0.9% 99 ML IV SCH (04:30)
[2016-06-29] MEDS: POTASSIUM CHLORIDE 50 ML IVPB PRN ×3 (04:43→05:47)
--- NOTE | 2016-06-29 04:51 | RADRPT ---
PROCEDURE: XR Chest. CLINICAL INDICATION: Tube adjustment TECHNIQUE: Single frontal view of the chest was obtained COMPARISON: 06/29/2016 at 12:21 a.m. FINDINGS: The tip of the endotracheal tube is approximately 4.2 cm above the tabatha. Right jugular catheter i n superior vena cava. Nasogastric tube in stomach. External cardiac pacemaker pads projected over left chest. ECG leads and oxygen tubing projected over the chest. The heart and mediastinum are wit hin normal limits. There is hypoinflation of the lungs. There has been interval increase in density in the right mid l davdi which could be secondary to atelectasis/infiltrate or pulmonary edema. There has been interval d ecrease in density in the right lower lung since the previous study. Left lower lobe atelectasis/inf iltrate again seen. IMPRESSION: Endotracheal tube tip approximately 4.2 cm above tabatha. Hypoinflation of the lungs. There has been interval increase in density in the right mid lung which could be secondary to atelectasis/infiltra te or pulmonary edema. There has been interval decrease in density in the right lower lung since the previous study. Left lower lobe atelectasis/infiltrate again seen Please see above. RPTAT: HJES .Mateo Mi MD, MD Date Time Electronically viewed and signed by .Mateo Mi MD, on 06/29/2016 04:50 .S/
[2016-06-29] MEDS: PIPER-TAZO 3.375 GM IV (PMX) 100 ML IVPB SCH ×5 (05:02→23:46)
[2016-06-29 05:19] VITALS: BP 111/93; PULSE 98; RESP 18
[2016-06-29] MEDS: MIDAZOLAM (DRIP) 50 mg/50 mL 50 ML IV SCH (05:22)
[2016-06-29] MEDS: ACCU-CHEK XX SCH ×20 (05:33→23:30)
[2016-06-29] MEDS ORDERED: CLINDAMYCIN 900 MG/D5W (PMX) 50 ML IVPB SCH (06:00)
[2016-06-29 06:08] VITALS: BP 110/90; PULSE 96; RESP 25
[2016-06-29] MEDS: FENTAnyl (DRIP) 1000 mcg/100mL 100 ML IV SCH (06:08)
[2016-06-29 06:23] LABS: AADO2 Arterial 608.1 mmHg (7.0-24.0); Allen Test ACCEPTAB; Arterial Base Excess -11.8 mmol/L (-3.0-3); Arterial COHb 0.3 % (0.0-3.0); Arterial Fraction of Oxyhgb 95.2 % (93.0-99.0); Arterial HCO3 15.4 mmol/L (22.0-26.0); Arterial MetHb 0.3 % (0.0-1.5); Arterial Total Hemglobin 16.5 g/dl (12.0-18.0); MODE VENT - AC
[2016-06-29 06:37] LABS: TROPONIN-I 5.03 ng/ml (0.00-0.12)
[2016-06-29] MEDS ORDERED: NA BICARBONATE 8.4% 50 ML SYG ONE (07:07)
[2016-06-29] MEDS ORDERED: NA BICARBONATE 8.4% 50 ML SYG IV ONE (07:30)
[2016-06-29] MEDS: VANCOMYCIN 1 GM (PMX) 250 ML IVPB SCH ×2 (08:10→16:13)
[2016-06-29] MEDS: SOD CHLORIDE 0.9% 1,000 ML IV SCH ×2 (08:24→16:31)
[2016-06-29] MEDS: HEPARIN 25000 UNITS/D5W 250 ML IV SCH (08:30)
[2016-06-29] MEDS ORDERED: HEPARIN 1000 UNITS/ML 10 ML INJ IV PRN (08:30)
[2016-06-29] MEDS ORDERED: AMIODARONE 900MG/D5W DRIP 500 ML IV SCH (10:30)
[2016-06-29] MEDS: FAMOTIDINE 20 MG INJ IV SCH ×2 (11:06→21:08)
--- NOTE | 2016-06-29 11:54 | CONS ---
Date/Time of Note Date/Time of Note DATE: 06/29/16 TIME: 11:51 Assessment/Plan Assessment/Plan Additional Assessment/Plan Ventilator settings; AC of 22, tidal volume 500, PEEP of 5, 100% FiO2. Chest x-ray was reviewed from today which is showing right lower lobe atelectasis. Assessment recommendations; 1. He was admitted with acute TX status post cardiac arrest and CPR currently on hypothermia protocol with hemodynamic stability. 2. No underlying comorbid conditions. Continue supportive care. Mental status to be evaluated once patient is off hypothermia protocol. Obtain a follow-up chest x-ray. Wean down FiO2 to keep O2 sat around 92-94%. I did have a detailed discussion the patient's at bedside and answered all her questions. Consultation Date/Type/Reason Admit Date/Time 06/28/162241 Date of Consultation: Jun 29, 2016 Type of Consultation: Pulmonary Reason for Consultation Pulmonary consultation requested for evaluation of respiratory failure, patient admitted with cardiac arrest. History presenting; patient is a 36-year-old male who was brought into the ER of the patient collapsed at work. CPR was done with revival of vital signs the patient has been placed on hypothermia protocol and by the time I saw him the patient is or intubated paralyzed and sedated. History was obtained from patient's is at his medical records. Past medical history; next 1. No history of any illnesses. Medications; were reviewed. Allergies; are none. Social history; patient smokes off and on. No history of alcohol or drug abuse. Family history; patient is , has 2 children. Couple of patient's aunts have coronary artery disease. 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 Review of systems; unable to be obtained. Exam; young male, orally intubated, sedated and paralyzed. Past Medical History Medical History: other (Unknown) Past Surgical History Past Surgical Hx: other (Unknown) Social History Smoking Status: Current every day smoker Drug Use: other (Unknown) Exam/Review of Systems Vital Signs Vitals Vital Signs Date Time Temp Pulse Resp B/P Pulse Ox O2 Delivery O2 Flow Rate FiO2 06/29/16 11:30 74 18 93/78 100 Mechanical Ventilator 06/29/16 11:00 90.8 06/29/16 10:25 100 Intake and Output 06/28/16 06/28/16 06/29/16 15:00 23:00 07:00 Intake Total 1700 ml 350 ml Output Total 900 ml 1700 ml Balance 800 ml -1350 ml Exam HEENT exam is; supple neck, positive JVD. No lymphadenopathy. Midline trachea. No thyromegaly. Orally intubated. Pupils are small bilaterally. No neck masses. No lymphadenopathy. Chest examined; diminished but clear vessel. S1-S2 audible, no murmurs. Regular rhythm. Abdomen exam is; soft, no organomegaly. Bowel sounds are absent. Extremity exam is; no peripheral edema. Pulses 1+ bilaterally. No clubbing. STOGY MAKER examination: Patient is sedated and paralyzed. Results Result Diagram: 06/29/16 0056 06/29/16 0700 Results 24 hrs Laboratory Tests Test 06/28/16 16:45 06/28/16 16:55 06/28/16 17:35 06/28/16 18:00 Blood Gas Specimen Source Blood arterial Arterial Blood Date Drawn 06/28/2016 6:18:38 PM Arterial Blood pH (Temp corrected) 7.252 *L Arterial Blood pCO2 (Temp correct) 33.9 L Arterial Blood pO2 (Temp corrected) 127.1 H Arterial Blood HCO3 14.6 L Arterial Blood Base Excess -11.5 L Arterial Blood Oxygen Saturation 97.6 Christ Test ACCEPTAB Arterial Blood Gas Puncture Site Right Radial Arterial Blood Carboxyhemoglobin 0.3 Arterial Blood Methemoglobin 0.4 Blood Gas A-a O2 Differential 552.0 H Oxyhemoglobin Percent 96.9 Total Hemoglobin 14.6 Blood Gas Temperature 37.0 Blood Gas Respiration Rate 18.0 Blood Gas Actual Respiration Rate 18 Blood Gas Modality VENT - AC FiO2 100.0 Blood Gas Tidal Volume 500.0 Blood Gas Low PEEP Setting 5.0 Blood Gas Critical Value Read Back DR. DEAN Blood Gas Notified Whom Isidro Blood Gas Notified Time 06/28/2016 6:26:14 PM White Blood Count 13.9 H Red Blood Count 4.76 Hemoglobin 14.4 Hematocrit 45.2 Mean Corpuscular Volume 95.0 Mean Corpuscular Hemoglobin 30.3 Mean Corpuscular Hemoglobin Concent 31.9 L Red Cell Distribution Width 12.4 Platelet Count 239 Mean Platelet Volume 9.5 Neutrophils % 38.0 L Band Neutrophils % 10.0 H Lymphocytes % 33.0 Reactive Lymphocytes % 13.0 Monocytes % 2.0 Eosinophils % 3.0 Basophils % 1.0 Neutrophils # 5.3 Lymphocytes # 4.6 H Monocytes # 0.3 Eosinophils # 0.4 Basophils # 0.1 Platelet Estimate PLT APPEAR ADEQUATE Large Platelets OCCASIONAL Prothrombin Time 13.9 Prothrombin Time Ratio 1.1 INR International Normalized Ratio 1.07 Activated Partial Thromboplast Time 32.5 Sodium Level 144 Potassium Level 3.6 Chloride Level 104 Carbon Dioxide Level 11 L Anion Gap 33 H Blood Urea Nitrogen 19 Creatinine 1.42 H Glucose Level 254 H Calcium Level 9.1 Phosphorus Level 9.9 H Magnesium Level 2.3 Total Bilirubin 0.3 Direct Bilirubin 0.00 Indirect Bilirubin 0.3 Aspartate Amino Transf (AST/SGOT) 788 H Alanine Aminotransferase (ALT/SGPT) 1062 H Alkaline Phosphatase 84 Troponin I 0.026 B-Type Natriuretic Peptide 301 H Total Protein 8.1 Albumin 4.9 Globulin 3.20 Albumin/Globulin Ratio 1.53 Ethyl Alcohol Level < 10.0 Lactic Acid Level 6.1 *H Urine Color LT. YELLOW Urine Clarity CLEAR Urine pH 6.0 Urine Specific [place] 1.025 Urine Ketones NEGATIVE Urine Nitrite NEGATIVE Urine Bilirubin NEGATIVE Urine Urobilinogen 0.2 E.U./dL Urine Leukocyte Esterase NEGATIVE Urine Microscopic RBC 5-10 Urine Microscopic WBC 0-2 Urine Squamous Epithelial Cells RARE Urine Bacteria MODERATE Urine Hemoglobin 2+ H Urine Glucose 0.1% H Urine Total Protein 2+ H Urine Opiates Screen Negative Urine Barbiturates Negative Urine Amphetamines Screen Negative Urine Benzodiazepines Screen Positive Urine Cocaine Screen Negative Urine Cannabinoids Negative Test 06/28/16 19:55 06/28/16 21:00 06/29/16 00:09 06/29/16 00:56 Lactic Acid Level 3.4 H 3.8 H Sodium Level 142 Potassium Level 4.0 Chloride Level 108 Carbon Dioxide Level 20 L Anion Gap 18 #H Blood Urea Nitrogen 18 Creatinine 0.85 Glucose Level 173 Calcium Level 7.3 L Phosphorus Level 3.7 # 3.6 Magnesium Level 2.0 2.0 Creatine Kinase 406 H Creatine Kinase Index 7.0 Creatinine Kinase MB (Mass) 28.60 H Troponin I 3.720 *H Blood Gas Specimen Source Blood arterial Arterial Blood Date Drawn 06/29/2016 12:40:29 AM Arterial Blood pH (Temp corrected) 7.287 *L Arterial Blood pCO2 (Temp correct) 33.8 L Arterial Blood pO2 (Temp corrected) 58.3 L Arterial Blood HCO3 16.5 L Arterial Blood Base Excess -10.3 L Arterial Blood Oxygen Saturation 92.9 L Christ Test N/A Arterial Blood Gas Puncture Site Right Brachial Arterial Blood Carboxyhemoglobin 0.3 Arterial Blood Methemoglobin 0.3 Blood Gas A-a O2 Differential 629.4 H Oxyhemoglobin Percent 92.3 L Total Hemoglobin 15.7 Blood Gas Temperature 33.4 Blood Gas Respiration Rate 18.0 Blood Gas Actual Respiration Rate 18 Blood Gas Modality VENT - AC FiO2 100.0 Blood Gas Tidal Volume 500.0 Blood Gas Low PEEP Setting 5.0 Blood Gas Inspiratory Pressure 25.0 Blood Gas Critical Value Read Back GENESIS SANCHEZ Blood Gas Notified Whom AA Blood Gas Notified Time 06/29/2016 12:52:28 AM White Blood Count 17.8 #H Red Blood Count 4.88 Hemoglobin 15.0 Hematocrit 47.1 Mean Corpuscular Volume 96.5 Mean Corpuscular Hemoglobin 30.7 Mean Corpuscular Hemoglobin Concent 31.8 L Red Cell Distribution Width 12.7 Platelet Count 185 # Mean Platelet Volume 9.5 Neutrophils % 80.9 H Lymphocytes % 10.1 L Monocytes % 7.9 Eosinophils % 0.1 Basophils % 0.3 Nucleated Red Blood Cells % 0.0 Neutrophils # 14.4 H Lymphocytes # 1.8 Monocytes # 1.4 H Eosinophils # 0.0 Basophils # 0.1 Nucleated Red Blood Cells # 0.0 Fibrinogen 268.0 Lipase 152 Test 06/29/16 03:10 06/29/16 05:25 06/29/16 05:31 06/29/16 06:00 Sodium Level 142 Potassium Level 3.2 L Chloride Level 108 Carbon Dioxide Level 19 L Anion Gap 18 H Blood Urea Nitrogen 11 Creatinine 0.62 Glucose Level 239 H Lactic Acid Level 4.1 *H Calcium Level 7.1 L Total Bilirubin 0.5 Direct Bilirubin 0.00 Indirect Bilirubin 0.5 Aspartate Amino Transf (AST/SGOT) 1033 H Alanine Aminotransferase (ALT/SGPT) 874 H Alkaline Phosphatase 73 Troponin I 5.620 *H 5.030 *H Total Protein 7.1 # Albumin 4.0 Globulin 3.10 Albumin/Globulin Ratio 1.29 Activated Partial Thromboplast Time 104.2 *H Creatine Kinase 1133 #H Creatine Kinase Index 9.4 Creatinine Kinase MB (Mass) 107.00 H Bedside Glucose 162 Blood Gas Specimen Source Blood arterial Arterial Blood Date Drawn 06/29/2016 6:08:52 AM Arterial Blood pH (Temp corrected) 7.248 *L Arterial Blood pCO2 (Temp correct) 34.9 L Arterial Blood pO2 (Temp corrected) 76.7 L Arterial Blood HCO3 15.4 L Arterial Blood Base Excess -11.8 L Arterial Blood Oxygen Saturation 95.8 Christ Test ACCEPTAB Arterial Blood Gas Puncture Site Left Radial Arterial Blood Carboxyhemoglobin 0.3 Arterial Blood Methemoglobin 0.3 Blood Gas A-a O2 Differential 608.1 H Oxyhemoglobin Percent 95.2 Total Hemoglobin 16.5 Blood Gas Temperature 34.2 Blood Gas Respiration Rate 22.0 Blood Gas Actual Respiration Rate 22 Blood Gas Modality VENT - AC FiO2 100.0 Blood Gas Tidal Volume 500.0 Blood Gas Low PEEP Setting 5.0 Blood Gas Inspiratory Pressure 25.0 Blood Gas Critical Value Read Back GENESIS SANCHEZ Blood Gas Notified Whom AA Blood Gas Notified Time 06/29/2016 6:23:12 AM Test 06/29/16 06:59 06/29/16 07:00 06/29/16 08:04 06/29/16 09:05 Bedside Glucose 150 144 144 Potassium Level 4.2 Lactic Acid Level 4.4 *H Test 06/29/16 10:02 06/29/16 10:03 06/29/16 11:03 Bedside Glucose 80 131 133 Medications Medications Current Medications Fentanyl 25 mcg 25 mcg Q10M PRN IV SEDATION; Start 06/28/16 at 17:00 Midazolam HCl 50 ml @ 2 mls/hr ONCE IV Last administered on 06/29/16 05:22; Admin Dose 4 MLS/HR; Start 06/28/16 at 17:00 Vecuronium [place] 100 mg/ Sodium Chloride 100 ml @ 4.38 mls/hr [id number] ONCE IV Last administered on 06/28/16 18:27; Admin Dose 4.383 MLS/HR; Start at 17:30; Stop 06/29/16 at 16:19 Fentanyl 100 ml @ 2.5 mls/hr TITRATE IV Last administered on 06/29/16 06:08; Admin Dose 10 MLS/HR; Start 06/28/16 at 19:00 Sodium Chloride (NS) 1,000 ml @ 100 mls/hr Q10H IV Last administered on 08:24; Admin Dose 100 MLS/HR; Start 06/28/16 at 20:42 Famotidine 20 mg 20 mg Q12 IV Last administered on 06/29/16 11:06; Admin Dose 20 MG; Start 06/28/16 at 21:00 Piperacillin Sod/ Tazobactam Sod 100 ml @ 200 mls/hr Q6 IVPB Last administered on 06/29/16 05:02; Admin Dose 200 MLS/HR; Start 06/29/16 at 00:00 Vancomycin HCl (Vancocin) 250 ml @ 125 mls/hr Q8H IVPB Last administered on 08:10; Admin Dose 125 MLS/HR; Start 06/29/16 at 08:00 Diagnostic Test (Pha) (Accu-Chek) 1 ea Q1H XX Last administered on 06/29/16 11 :04; Admin Dose 1 EA; Start 06/29/16 at 04:30 Dextrose (D50w Syringe) 25 ml Q15M PRN IV Till BS 80 mg/dL or above x2; Start 06/29/16 at 04:30 Dextrose 50 ml 50 ml Q15M PRN IV Till BS 80 mg/dL or above x2; Start 06/29/16 at 04:30 Heparin Sodium (Porcine) (Heparin 90887 Units/250 ml) 250 ml @ 0 mls/hr Q24H IV ; Start 06/29/16 at 08:30 Heparin Sodium (Porcine) (Heparin (1000 Units/ml)) 4,000 unit PRN PRN IV PENDING LAB VALUE; Start 06/29/16 at 08:30 Miscellaneous Information (*Rx Drug Level Order Reminder*) VANCOMYCIN TROUGH AT 2300 ONCE ONCE XX ; Start 06/29/16 at 23:00; Stop 06/29/16 at 23:01 SARITHA RAYMUNDO Jun 29, 2016 11:54
[2016-06-29 12:24] LABS: ADD SCAN DIFF NO
[2016-06-29 12:29] LABS: BASOPHILS % 0.1 % (0.0-2.0); HEMATOCRIT 43.5 % (42.0-52.0); HEMOGLOBIN 14.7 g/dl (14.0-18.0); LYMPHOCYTES # 0.6 10^3/ul (0.8-2.9); LYMPHOCYTES % 4.8 % (15.0-51.0); MEAN CORPUSCULAR HEMOGLOBIN 30.9 pg (29.0-33.0); MEAN CORPUSCULAR HGB CONC 33.8 g/dl (32.0-37.0); MEAN CORPUSCULAR VOLUME 91.6 fl (82.0-101.0); MEAN PLATELET VOLUME 9.2 fl (7.4-10.4); MONOCYTE # 0.6 10^3/ul (0.3-0.9); MONOCYTES % 4.8 % (0.0-11.0); PLATELET COUNT 203 10^3/UL (140-415); RED BLOOD COUNT 4.75 10^6/ul (4.70-6.10); RED CELL DISTRIBUTION WIDTH 12.5 % (11.5-14.5); WHITE BLOOD COUNT 13.3 10^3/ul (4.8-10.8)
[2016-06-29 12:38] LABS: INR 1.02; PROTIME 13.4 Sec (12.2-14.2)
[2016-06-29 12:39] LABS: PARTIAL THROMBOPLASTIN TIME 68.3 Sec (25.0-35.0)
[2016-06-29 12:45] LABS: MAGNESIUM 1.6 mg/dl (1.7-2.5); PHOSPHORUS 2.5 mg/dl (2.5-4.9)
[2016-06-29 12:59] LABS: TROPONIN-I 4.17 ng/ml (0.00-0.12)
[2016-06-29 13:26] LABS: AADO2 Arterial 592.6 mmHg (7.0-24.0); Allen Test ACCEPTAB; Arterial Base Excess -11.3 mmol/L (-3.0-3); Arterial COHb 0.3 % (0.0-3.0); Arterial Fraction of Oxyhgb 97.6 % (93.0-99.0); Arterial HCO3 12.9 mmol/L (22.0-26.0); Arterial MetHb 0.3 % (0.0-1.5); Arterial Total Hemglobin 15.1 g/dl (12.0-18.0); MODE VENT - AC
[2016-06-29 13:26] LABS: POTASSIUM 4.2 mmol/L (3.5-5.1)
[2016-06-29 13:28] LABS: CREATININE 0.57 mg/dl (0.61-1.24)
[2016-06-29 13:29] LABS: CALCIUM 6.9 mg/dl (8.4-10.2)
[2016-06-29] MEDS ORDERED: MEPERIDINE 25 MG INJ IV PRN (14:30)
[2016-06-29] MEDS: MEPERIDINE 25 MG INJ IV PRN (14:44)
[2016-06-29 18:24] LABS: ADD SCAN DIFF NO
[2016-06-29 18:27] LABS: BASOPHILS % 0.1 % (0.0-2.0); HEMATOCRIT 40.6 % (42.0-52.0); HEMOGLOBIN 13.4 g/dl (14.0-18.0); LYMPHOCYTES # 0.8 10^3/ul (0.8-2.9); LYMPHOCYTES % 5.4 % (15.0-51.0); MEAN PLATELET VOLUME 9.2 fl (7.4-10.4); MONOCYTE # 0.8 10^3/ul (0.3-0.9); MONOCYTES % 5.1 % (0.0-11.0); PLATELET COUNT 179 10^3/UL (140-415); RED BLOOD COUNT 4.46 10^6/ul (4.70-6.10); RED CELL DISTRIBUTION WIDTH 12.9 % (11.5-14.5); WHITE BLOOD COUNT 14.6 10^3/ul (4.8-10.8)
[2016-06-29 18:38] LABS: INR 1.16; PROTIME 14.8 Sec (12.2-14.2); PT RATIO 1.2
[2016-06-29 18:39] LABS: PARTIAL THROMBOPLASTIN TIME 61.8 Sec (25.0-35.0)
[2016-06-29 18:46] LABS: CALCIUM 6.7 mg/dl (8.4-10.2); CREATININE 0.55 mg/dl (0.61-1.24); MAGNESIUM 1.5 mg/dl (1.7-2.5); PHOSPHORUS 2.2 mg/dl (2.5-4.9); POTASSIUM 3.9 mmol/L (3.5-5.1)
[2016-06-29 18:59] LABS: TROPONIN-I 3.32 ng/ml (0.00-0.12)
[2016-06-29] MEDS ORDERED: MAGNESIUM SULFATE 2 GM/50 ML 50 ML IVPB ONE (20:00)
[2016-06-29] MEDS ORDERED: MEPERIDINE 25 MG INJ IV ONE (20:00)
[2016-06-29] MEDS: ACETAMINOPHEN 650MG/20.3ML CUP NGT SCH (20:08)
--- NOTE | 2016-06-29 20:29 | RADRPT ---
Echocardiogram Report Patient Name: TENNILLE VALDES Gender: Male Date: 1980 Study Date: 29-Jun-2016 Oracle Database Developer: Dejon Pennington RDCS Location: [facility] Ref. Physician: FLORIAN WU Quality: Good Procedures: Transthoracic echocardiogram with complete 2D, M-Mode, and doppler examination. Indications: Pulmonary edema in ROSC after witnessed arrest and shock in the field. 2D/M Mode Doppler Measurement Value Normal Ranges Measurement Value Normal Ranges LVIDd 2D 5.1 3.5 - 5.6 cm AV Peak Lester 0.7 m/sec LVIDs 2D 4.8 2.1 - 4.1 cm AV Peak PG 2.0 mmHg FS 2D 6.9 % LVOT Peak Lester 0.6 m/sec LVPWd 2D 0.9 0.6 - 1.1 cm LVOT Peak PG 1.0 mmHg IVSd 2D 1.1 0.6 - 1.1 cm MV E Peak Lester 0.5 m/sec IVS/LVPW 2D 1.1 MV A Peak Lester 0.5 m/sec AoR Diam 2D 3.2 2.0 - 3.7 cm MV E/A 1.2 LA/Ao 2D 1 0 - 1 MV Decel Time 77 msec EDV 2D 133.0 cm3 MV E/A 1.2 ESV 2D 107.0 cm3 TR Peak Lester 2.1 m/sec LA Dimen 2D 3.4 2.3 - 4.0 cm TR Peak PG 18.0 mmHg RVSP 26.0 mmHg Findings Left Ventricle: Normal left ventricular cavity size. Mild concentric left ventricular hypertrophy. Severe global left ventricular systolic dysfunction. Ejection fraction is visually estimated at 1520 %. Right Ventricle: Normal right ventricular size. Normal right ventricular systolic function. Left Atrium: The left atrium is normal in size. Right Atrium: The right atrium is normal in size. Mitral Valve: Normal appearance and function of the mitral valve with trace physiologic regurgitation. Aortic Valve: Normal appearance of the aortic valve. No significant aortic stenosis or insufficiency. Tricuspid Valve: Normal appearance of the tricuspid valve. Estimated peak PA systolic pressure 26 mmHg. There is trace tricuspid regurgitation. Pulmonic Valve: Normal pulmonic valve appearance. Pericardium: Normal pericardium with no significant pericardial effusion. Aorta: Normal aortic root. IVC: Inferior vena cava without respiratory collapse, however, patient on ventilator. Conclusions 1.Normal left ventricular cavity size. Mild concentric left ventricular hypertrophy. Severe global left ventricular systolic dysfunction. Ejection fraction is visually estimated at 15-20 %. 2.Normal appearance and function of the mitral valve with trace physiologic regurgitation. 3.Normal appearance of the tricuspid valve. Estimated peak PA systolic pressure 26 mmHg. There is trace tricuspid regurgitation. Electronically Signed By: Willis Chow 29-Jun-2016 20:29:01 -0700 Patient Name: TENNILLE VALDES Study Date: 29-Jun-2016 [id number]
[2016-06-29 20:54] LABS: AADO2 Arterial 587.3 mmHg (7.0-24.0); Arterial Base Excess -6.3 mmol/L (-3.0-3); Arterial COHb 0.3 % (0.0-3.0); Arterial Fraction of Oxyhgb 96.9 % (93.0-99.0); Arterial HCO3 17.6 mmol/L (22.0-26.0); Arterial MetHb 0.3 % (0.0-1.5); MODE VENT - AC
[2016-06-29] MEDS: NORepinephrine 8MG/250 ML (PMX 250 ML IV SCH (22:54)
[2016-06-30] VITALS (88 sets, daily range): BP systolic 72–147; BP diastolic 50–102; PULSE 69–158; RESP 12–60; TEMP 98.4
[2016-06-30 00:18] LABS: ADD SCAN DIFF NO
[2016-06-30 00:20] LABS: BASOPHILS % 0.1 % (0.0-2.0); HEMATOCRIT 39.7 % (42.0-52.0); HEMOGLOBIN 13.3 g/dl (14.0-18.0); LYMPHOCYTES % 6.1 % (15.0-51.0); MEAN CORPUSCULAR HEMOGLOBIN 30.4 pg (29.0-33.0); MEAN CORPUSCULAR HGB CONC 33.5 g/dl (32.0-37.0); MEAN CORPUSCULAR VOLUME 90.8 fl (82.0-101.0); MEAN PLATELET VOLUME 9.2 fl (7.4-10.4); MONOCYTE # 0.8 10^3/ul (0.3-0.9); MONOCYTES % 4.8 % (0.0-11.0); NEUTROPHIL # 14.2 10^3/ul (1.6-7.5); NEUTROPHILS % 88.7 % (39.0-77.0); PLATELET COUNT 202 10^3/UL (140-415); RED BLOOD COUNT 4.37 10^6/ul (4.70-6.10); RED CELL DISTRIBUTION WIDTH 12.9 % (11.5-14.5)
[2016-06-30] MEDS: ACETAMINOPHEN 650MG/20.3ML CUP NGT SCH ×2 (00:25→05:41)
[2016-06-30] MEDS: VANCOMYCIN 1 GM (PMX) 250 ML IVPB SCH (00:25)
[2016-06-30 00:31] LABS: INR 1.12; PROTIME 14.4 Sec (12.2-14.2); PT RATIO 1.1
[2016-06-30 00:32] LABS: PARTIAL THROMBOPLASTIN TIME 52.7 Sec (25.0-35.0)
[2016-06-30 00:34] LABS: CALCIUM 7.1 mg/dl (8.4-10.2); CREATININE 0.59 mg/dl (0.61-1.24); MAGNESIUM 2.1 mg/dl (1.7-2.5); PHOSPHORUS 2.5 mg/dl (2.5-4.9); POTASSIUM 3.9 mmol/L (3.5-5.1)
[2016-06-30] MEDS: FENTAnyl (DRIP) 1000 mcg/100mL 100 ML IV SCH ×2 (00:39→15:32)
[2016-06-30] MEDS: ACCU-CHEK XX SCH ×8 (00:41→07:28)
[2016-06-30 00:45] LABS: TROPONIN-I 3.2 ng/ml (0.00-0.12)
[2016-06-30] MEDS: HEPARIN 25000 UNITS/D5W 250 ML IV SCH ×2 (00:54→04:31)
[2016-06-30 01:58] LABS: AADO2 Arterial 560.3 mmHg (7.0-24.0); Allen Test ACCEPTAB; Arterial COHb 0.3 % (0.0-3.0); Arterial Fraction of Oxyhgb 97.6 % (93.0-99.0); Arterial HCO3 17.1 mmol/L (22.0-26.0); Arterial MetHb 0.3 % (0.0-1.5); Arterial Total Hemglobin 14.5 g/dl (12.0-18.0); MODE VENT - AC
[2016-06-30] MEDS: SOD CHLORIDE 0.9% 1,000 ML IV SCH ×2 (02:01→12:42)
[2016-06-30] MEDS: MIDAZOLAM (DRIP) 50 mg/50 mL 50 ML IV SCH ×4 (02:18→22:19)
[2016-06-30] MEDS: PIPER-TAZO 3.375 GM IV (PMX) 100 ML IVPB SCH ×4 (05:44→23:43)
[2016-06-30] MEDS ORDERED: DICYCLOMINE 10 MG CAP NGT SCH (06:00)
[2016-06-30 06:40] LABS: ADD SCAN DIFF NO
[2016-06-30 07:00] LABS: BASOPHILS % 0.1 % (0.0-2.0); HEMATOCRIT 37.4 % (42.0-52.0); HEMOGLOBIN 12.7 g/dl (14.0-18.0); LYMPHOCYTES % 6.4 % (15.0-51.0); MEAN CORPUSCULAR HEMOGLOBIN 31.1 pg (29.0-33.0); MEAN CORPUSCULAR VOLUME 91.7 fl (82.0-101.0); MEAN PLATELET VOLUME 9.6 fl (7.4-10.4); MONOCYTE # 0.7 10^3/ul (0.3-0.9); MONOCYTES % 4.2 % (0.0-11.0); NEUTROPHIL # 13.8 10^3/ul (1.6-7.5); PLATELET COUNT 194 10^3/UL (140-415); RED BLOOD COUNT 4.08 10^6/ul (4.70-6.10); WHITE BLOOD COUNT 15.6 10^3/ul (4.8-10.8)
[2016-06-30 07:02] LABS: INR 1.12; PROTIME 14.4 Sec (12.2-14.2); PT RATIO 1.1
[2016-06-30 07:03] LABS: PARTIAL THROMBOPLASTIN TIME 54.2 Sec (25.0-35.0)
[2016-06-30 07:07] LABS: CALCIUM 7.2 mg/dl (8.4-10.2); CREATININE 0.68 mg/dl (0.61-1.24); MAGNESIUM 1.8 mg/dl (1.7-2.5); PHOSPHORUS 2.3 mg/dl (2.5-4.9); POTASSIUM 3.7 mmol/L (3.5-5.1)
[2016-06-30 07:25] LABS: TROPONIN-I 2.71 ng/ml (0.00-0.12)
[2016-06-30 07:57] LABS: AADO2 Arterial 297.6 mmHg (7.0-24.0); Allen Test ACCEPTAB; Arterial Base Excess -5.9 mmol/L (-3.0-3); Arterial COHb 0.3 % (0.0-3.0); Arterial Fraction of Oxyhgb 96.3 % (93.0-99.0); Arterial HCO3 18.3 mmol/L (22.0-26.0); Arterial MetHb 0.3 % (0.0-1.5); Arterial Total Hemglobin 13.6 g/dl (12.0-18.0); MODE VENT - AC
[2016-06-30] MEDS: VANCOMYCIN 1.5 GM in SOD CHLORIDE 0.9% 250 ML IVPB SCH ×3 (08:21→23:52)
[2016-06-30] MEDS: FAMOTIDINE 20 MG INJ IV SCH ×2 (08:21→20:01)
[2016-06-30] MEDS ORDERED: GLUCAGON 1 MG INJ IM PRN (09:30)
[2016-06-30] MEDS ORDERED: GLUCOSE GEL 15 GRAM TUBE BUCCAL PRN (09:30)
[2016-06-30] MEDS ORDERED: GLUCOSE GEL 15 GRAM TUBE PO PRN ×2 (09:30)
[2016-06-30] MEDS ORDERED: DEXTROSE 50% 50 ML SYRINGE IV PRN ×2 (09:30)
--- NOTE | 2016-06-30 09:37 | PN ---
Date/Time of Note Date/Time of Note DATE: 06/29/16 TIME: 19:30 Assessment/Plan VTE Prophylaxis VTE Prophylaxis Intervention: heparin Lines/Catheters IV Catheter Type (from Nrsg): Central Line Central line still needed: Yes Urinary Cath still in place: Yes Reason Cath still needed: terminal illness/intractable pain Assessment/Plan Assessment/Plan 1) V-fib Cardiac arrest with ROSC - Mechanical Ventilation - Continue Hypothermic Therapy - Maintain Sedation, Anticoagulation and Pressor Support - Dr. Waller, on-call Charter Representative was made aware about STEMI by ED. No emergent procedure indicated. 2) Aspiration pneumonia and/or Pulmonary edema - IV ABX: Clindamycin, Zosyn and Vancomycin - Lasix 3. Vent Dependent Respiratory Failure - cont vent support - CPAP trial if awake - Pulmonary Following 4) Acute Renal Injury: resolved 5. Electrolyte Abnormalities - correct as needed Critical time spent: about 45 minutes Subjective 24 Hr Interval Summary Free Text/Dictation intubated, unresponsive. No corneal or gag reflex Exam/Review of Systems Vital Signs Vitals Vital Signs Date Time Temp Pulse Resp B/P Pulse Ox O2 Delivery O2 Flow Rate FiO2 06/30/16 08:00 96 06/30/16 07:11 24 100 80 06/30/16 06:45 99/72 06/30/16 06:30 Mechanical Ventilator 06/30/16 04:00 98.3 Intake and Output 06/29/16 06/29/16 06/30/16 15:00 23:00 07:00 Intake Total 350 ml 50 ml 541.60 ml Output Total 1100 ml 400 ml 590 ml Balance -750 ml -350 ml -48.40 ml Exam Constitutional: other (intubated, unresponsive. No corneal or gag reflex ) Head: atraumatic, normocephalic Eyes: other (pupils soehow pinpoint. non-reactive to light) Respiratory: diminished breath sounds, wheezing Cardiovascular: other (tachycardic with regular rhythm) Gastrointestinal: other (non-distended, positive bowel sound), soft Extremities: normal pulses Neurological: unresponsive Results Result Diagram: 06/30/16 0600 06/30/16 0600 Results 24 hrs Laboratory Tests Test 06/29/16 10:02 06/29/16 10:03 06/29/16 11:03 06/29/16 12:06 Bedside Glucose 80 131 133 141 Test 06/29/16 12:07 06/29/16 13:11 06/29/16 13:21 06/29/16 14:22 White Blood Count 13.3 #H Red Blood Count 4.75 Hemoglobin 14.7 Hematocrit 43.5 Mean Corpuscular Volume 91.6 Mean Corpuscular Hemoglobin 30.9 Mean Corpuscular Hemoglobin Concent 33.8 Red Cell Distribution Width 12.5 Platelet Count 203 Mean Platelet Volume 9.2 Neutrophils % 90.0 H Lymphocytes % 4.8 L Monocytes % 4.8 Eosinophils % 0.0 Basophils % 0.1 Nucleated Red Blood Cells % 0.0 Neutrophils # 12.0 H Lymphocytes # 0.6 L Monocytes # 0.6 Eosinophils # 0.0 Basophils # 0.0 Nucleated Red Blood Cells # 0.0 Prothrombin Time 13.4 Prothrombin Time Ratio 1.0 INR International Normalized Ratio 1.02 Activated Partial Thromboplast Time 68.3 H Fibrinogen 326.0 # Sodium Level 141 Potassium Level 4.2 Chloride Level 108 Carbon Dioxide Level 17 L Anion Gap 20 H Blood Urea Nitrogen 9 Creatinine 0.57 L Glucose Level 171 Calcium Level 6.9 L Phosphorus Level 2.5 Magnesium Level 1.6 L Troponin I 4.170 *H Amylase Level 165 H Lipase 66 Bedside Glucose 122 119 Blood Gas Specimen Source Blood arterial Arterial Blood Date Drawn 06/29/2016 12:20:46 PM Arterial Blood pH (Temp corrected) 7.369 Arterial Blood pCO2 (Temp correct) 21.9 L Arterial Blood pO2 (Temp corrected) 107.3 H Arterial Blood HCO3 12.9 L Arterial Blood Base Excess -11.3 L Arterial Blood Oxygen Saturation 98.2 H Christ Test ACCEPTAB Arterial Blood Gas Puncture Site Right Radial Arterial Blood Carboxyhemoglobin 0.3 Arterial Blood Methemoglobin 0.3 Blood Gas A-a O2 Differential 592.6 H Oxyhemoglobin Percent 97.6 Total Hemoglobin 15.1 Blood Gas Temperature 33.3 Blood Gas Respiration Rate 22.0 Blood Gas Actual Respiration Rate 22 Blood Gas Modality VENT - AC FiO2 100.0 Blood Gas Tidal Volume 500.0 Blood Gas Low PEEP Setting 5.0 Blood Gas Notified Whom JLD Blood Gas Notified Time 06/29/2016 1:26:33 PM Test 06/29/16 15:31 06/29/16 16:23 06/29/16 17:14 06/29/16 18:10 Bedside Glucose 111 106 99 White Blood Count 14.6 H Red Blood Count 4.46 L Hemoglobin 13.4 L Hematocrit 40.6 L Mean Corpuscular Volume 91.0 Mean Corpuscular Hemoglobin 30.0 Mean Corpuscular Hemoglobin Concent 33.0 Red Cell Distribution Width 12.9 Platelet Count 179 Mean Platelet Volume 9.2 Neutrophils % 89.0 H Lymphocytes % 5.4 L Monocytes % 5.1 Eosinophils % 0.0 Basophils % 0.1 Nucleated Red Blood Cells % 0.0 Neutrophils # 13.0 H Lymphocytes # 0.8 Monocytes # 0.8 Eosinophils # 0.0 Basophils # 0.0 Nucleated Red Blood Cells # 0.0 Prothrombin Time 14.8 H Prothrombin Time Ratio 1.2 INR International Normalized Ratio 1.16 Activated Partial Thromboplast Time 61.8 H Fibrinogen 332.0 Sodium Level 137 Potassium Level 3.9 Chloride Level 111 H Carbon Dioxide Level 20 L Anion Gap 10 # Blood Urea Nitrogen 7 Creatinine 0.55 L Glucose Level 118 # Calcium Level 6.7 L Phosphorus Level 2.2 L Magnesium Level 1.5 L Troponin I 3.320 *H Amylase Level 131 H Lipase 100 Test 06/29/16 18:15 06/29/16 19:36 06/29/16 20:30 06/29/16 20:32 Bedside Glucose 110 111 107 Blood Gas Specimen Source Blood arterial Arterial Blood Date Drawn 06/29/2016 8:40:09 PM Arterial Blood pH (Temp corrected) 7.383 Arterial Blood pCO2 (Temp correct) 30.1 L Arterial Blood pO2 (Temp corrected) 97.2 Arterial Blood HCO3 17.6 L Arterial Blood Base Excess -6.3 L Arterial Blood Oxygen Saturation 97.5 Christ Test N/A Arterial Blood Gas Puncture Site Right Brachial Arterial Blood Carboxyhemoglobin 0.3 Arterial Blood Methemoglobin 0.3 Blood Gas A-a O2 Differential 587.3 H Oxyhemoglobin Percent 96.9 Total Hemoglobin 15.0 Blood Gas Temperature 36.4 Blood Gas Respiration Rate 22.0 Blood Gas Actual Respiration Rate 22 Blood Gas Modality VENT - AC FiO2 100.0 Blood Gas Tidal Volume 500.0 Blood Gas High PEEP Setting 5.0 Blood Gas Notified Whom UP Blood Gas Notified Time 06/29/2016 8:54:37 PM Test 06/29/16 21:42 06/29/16 22:40 06/29/16 23:10 06/30/16 00:00 Bedside Glucose 102 108 Vancomycin Level Trough 5.2 L White Blood Count 16.0 H Red Blood Count 4.37 L Hemoglobin 13.3 L Hematocrit 39.7 L Mean Corpuscular Volume 90.8 Mean Corpuscular Hemoglobin 30.4 Mean Corpuscular Hemoglobin Concent 33.5 Red Cell Distribution Width 12.9 Platelet Count 202 Mean Platelet Volume 9.2 Neutrophils % 88.7 H Lymphocytes % 6.1 L Monocytes % 4.8 Eosinophils % 0.0 Basophils % 0.1 Nucleated Red Blood Cells % 0.0 Neutrophils # 14.2 H Lymphocytes # 1.0 Monocytes # 0.8 Eosinophils # 0.0 Basophils # 0.0 Nucleated Red Blood Cells # 0.0 Prothrombin Time 14.4 H Prothrombin Time Ratio 1.1 INR International Normalized Ratio 1.12 Activated Partial Thromboplast Time 52.7 H Fibrinogen 364.0 # Sodium Level 136 Potassium Level 3.9 Chloride Level 110 Carbon Dioxide Level 19 L Anion Gap 11 Blood Urea Nitrogen 7 Creatinine 0.59 L Glucose Level 115 Calcium Level 7.1 L Phosphorus Level 2.5 Magnesium Level 2.1 Troponin I 3.200 *H Amylase Level 93 Lipase 47 Test 06/30/16 00:41 06/30/16 01:20 06/30/16 01:46 06/30/16 03:59 Bedside Glucose 110 112 99 Blood Gas Specimen Source Blood arterial Arterial Blood Date Drawn 06/30/2016 1:45:52 AM Arterial Blood pH (Temp corrected) 7.365 Arterial Blood pCO2 (Temp correct) 30.5 L Arterial Blood pO2 (Temp corrected) 122.7 H Arterial Blood HCO3 17.1 L Arterial Blood Base Excess -7.0 L Arterial Blood Oxygen Saturation 98.2 H Christ Test ACCEPTAB Arterial Blood Gas Puncture Site Left Radial Arterial Blood Carboxyhemoglobin 0.3 Arterial Blood Methemoglobin 0.3 Blood Gas A-a O2 Differential 560.3 H Oxyhemoglobin Percent 97.6 Total Hemoglobin 14.5 Blood Gas Temperature 36.8 Blood Gas Respiration Rate 22.0 Blood Gas Actual Respiration Rate 22 Blood Gas Modality VENT - AC FiO2 100.0 Blood Gas Tidal Volume 500.0 Blood Gas Low PEEP Setting 5.0 Blood Gas Notified Whom OH Blood Gas Notified Time 06/30/2016 1:57:51 AM Test 06/30/16 05:38 06/30/16 06:00 06/30/16 07:17 06/30/16 07:27 Bedside Glucose 95 98 White Blood Count 15.6 H Red Blood Count 4.08 L Hemoglobin 12.7 L Hematocrit 37.4 L Mean Corpuscular Volume 91.7 Mean Corpuscular Hemoglobin 31.1 Mean Corpuscular Hemoglobin Concent 34.0 Red Cell Distribution Width 13.0 Platelet Count 194 Mean Platelet Volume 9.6 Neutrophils % 89.0 H Lymphocytes % 6.4 L Monocytes % 4.2 Eosinophils % 0.0 Basophils % 0.1 Nucleated Red Blood Cells % 0.0 Neutrophils # 13.8 H Lymphocytes # 1.0 Monocytes # 0.7 Eosinophils # 0.0 Basophils # 0.0 Nucleated Red Blood Cells # 0.0 Prothrombin Time 14.4 H Prothrombin Time Ratio 1.1 INR International Normalized Ratio 1.12 Activated Partial Thromboplast Time 54.2 H Fibrinogen 449.0 # Sodium Level 136 Potassium Level 3.7 Chloride Level 111 H Carbon Dioxide Level 22 Anion Gap 7 L Blood Urea Nitrogen 7 Creatinine 0.68 Glucose Level 131 Calcium Level 7.2 L Phosphorus Level 2.3 L Magnesium Level 1.8 Troponin I 2.710 *H Amylase Level 65 Lipase 46 Blood Gas Specimen Source Blood arterial Arterial Blood Date Drawn 06/30/2016 7:40:25 AM Arterial Blood pH (Temp corrected) 7.368 Arterial Blood pCO2 (Temp correct) 32.6 L Arterial Blood pO2 (Temp corrected) 94.3 Arterial Blood HCO3 18.3 L Arterial Blood Base Excess -5.9 L Arterial Blood Oxygen Saturation 96.9 Christ Test ACCEPTAB Arterial Blood Gas Puncture Site Right Radial Arterial Blood Carboxyhemoglobin 0.3 Arterial Blood Methemoglobin 0.3 Blood Gas A-a O2 Differential 297.6 H Oxyhemoglobin Percent 96.3 Total Hemoglobin 13.6 Blood Gas Temperature 37.0 Blood Gas Respiration Rate 22.0 Blood Gas Actual Respiration Rate 24 Blood Gas Modality VENT - AC FiO2 60.0 Blood Gas Tidal Volume 500.0 Blood Gas Low PEEP Setting 5.0 Blood Gas Notified Whom JLD Blood Gas Notified Time 06/30/2016 7:57:15 AM Medications Medications Current Medications Fentanyl 25 mcg 25 mcg Q10M PRN IV SEDATION; Start 06/28/16 at 17:00 Midazolam HCl 50 ml @ 2 mls/hr ONCE IV Last administered on 06/30/16t 07:03; Admin Dose 7 MLS/HR; Start 06/28/16 at 17:00 Fentanyl 100 ml @ 2.5 mls/hr TITRATE IV Last administered on 06/30/16 00:39; Admin Dose 10 MLS/HR; Start 06/28/16 at 19:00 Sodium Chloride (NS) 1,000 ml @ 100 mls/hr Q10H IV Last administered on 02:01; Admin Dose 100 MLS/HR; Start 06/28/16 at 20:42 Famotidine 20 mg 20 mg Q12 IV Last administered on 06/30/16 08:21; Admin Dose 20 MG; Start 06/28/16 at 21:00 Piperacillin Sod/ Tazobactam Sod 100 ml @ 200 mls/hr Q6 IVPB Last administered on 06/30/16 05:44; Admin Dose 200 MLS/HR; Start 06/29/16 at 00:00 Heparin Sodium (Porcine) (Heparin 49109 Units/250 ml) 250 ml @ 0 mls/hr Q24H IV Last administered on 06/30/16 04:31; Admin Dose 8.5 MLS/HR; Start 06/29/16 at 08:30 Heparin Sodium (Porcine) (Heparin (1000 Units/ml)) 4,000 unit PRN PRN IV PENDING LAB VALUE; Start 06/29/16 at 08:30 Meperidine HCl (Demerol) 25 mg Q4H PRN IV shivering post hypothermia pro Last administered on 06/29/16 14:44; Admin Dose 25 MG; Start 06/29/16 at 14:30 Acetaminophen 500 mg 500 mg Q6 NGT Last administered on 06/30/16 05:41; Admin Dose 500 MG; Start 06/29/16 at 20:00 Vancomycin HCl/ Sodium Chloride (Vancocin/NS) 250 ml @ 83.333 mls/ hr Q8H IVPB Last administered on 06/30/16 08:21; Admin Dose 83.333 MLS/HR; Start at 08:00 Dicyclomine HCl (Bentyl) 20 mg Q6H PRN NGT Hiccups; Start 06/30/16 at 06:30 Insulin Aspart (Novolog Insulin Pen) NOVOLOG *MILD* ALGORI... Q6 SC ; Start at 12:00 IMER OLIVEROS MD Jun 30, 2016 09:37
[2016-06-30] MEDS: ATORVASTATIN 80 MG TAB PO SCH (10:06)
[2016-06-30] MEDS: ASPIRIN (EC) 81 MG TAB PO SCH (10:06)
--- NOTE | 2016-06-30 10:58 | PN ---
DATE: 06/30/2016 TIME SEEN: 8:45 a.m. SUBJECTIVE: The patient remains intubated and currently is on sedation; however, he actually was narda ke, opening his eyes, fighting the vent as well as the restraints. He actually attempted to shake m y hand after repeated try. His daughter and son who I saw last night were also at the bedside and I have updated them on his current situation. Note that yesterday the patient did not go to the laboratory scientist last night the patient had no corneal reflex, no gag reflex. He is currently on 3 mcg of Levop hed and blood pressure has been for the most part in the high 90s. PHYSICAL EXAMINATION: VITAL SIGNS: Blood pressure on the monitor 97/70, heart rate 96, respiratory rate 20, temperature e arlier was 98.3, oxygen saturation 100% on 8% FIO2 on the vent. GENERAL: The patient intubated, and on sedation; however, he actually opens his eye and fighting th e vent as well as the restraints. He did actually attempt to shake my hand with his right hand afte r several tries. HEENT: No obvious head deformity. His pupils are reactive to light. CARDIOVASCULAR: Tachycardic with regular rhythm. LUNGS: He has decreased breath sounds at the bases and minimal scattered wheezing on the right side of his chest anteriorly. ABDOMEN: Soft. No grimaces noted on palpation. There was positive bowel sounds and was not disten ded. EXTREMITIES: No edema. NEUROLOGIC: See above. LABORATORY: WBC 15.6, hemoglobin 12.7, platelet count 194. Sodium 136, potassium 3.7, chloride 111 , bicarbonate 22, BUN 7, creatinine 0.68, glucose 131. IMAGING: Chest x-ray shows mildly enlarged cardiac silhouette and pulmonary edema, unchanged from . IMPRESSION: 1. Status post ventricular fibrillation cardiac arrest with ROSC. 2. Probable NSTEMI per EMS EKG. 3. Vent dependent respiratory failure secondary to cardiac arrest. 4. Shock, most likely cardiogenic, currently on minimal pressor. 5. Severe systolic dysfunction with EF of 15 to 20%. 6. Pulmonary edema. 7. Bilateral pneumonia, possibly from aspiration. 8. Acute kidney injury, resolved. PLAN: Continue ventilator support and pressor support, but we will try to wean off as tolerated. C ontgabriel current medical management including Heparin, aspirin and antibiotics. The patient will be seen by cardiology and currently is being followed by pulmonary. Will correct his electrolytes as n eeded. The patient's mentation has remarkably changed from last night when I saw him where he had n o corneal reflex or no gag reflex and was unresponsive, but now he is opening his eye and actually a ttempted to shake my hand. So he fortunately is improving. We will consider an EEG as needed based on his clinical course. Further workup and management per clinical course. Dictated By: IMER MATTSON/ENMA Conf#: [id number] DID#: [id number]
--- NOTE | 2016-06-30 11:08 | CONS ---
Date/Time of Note Date/Time of Note DATE: 06/30/16 TIME: 11:05 Consult Date/Type/Reason Admit Date/Time Jun 28, 2016 at 20:48 Initial Consult Date 06/29/16 Type of Consultation: Pulmonary Subjective Patient opens eyes and his breathing follows simple commands Continues mechanical ventilation Remains hemodynamically stable Objective Vital Signs Date Time Temp Pulse Resp B/P Pulse Ox O2 Delivery O2 Flow Rate FiO2 06/30/16 10:15 92 20 98/81 100 06/30/16 10:00 Mechanical Ventilator 06/30/16 08:55 60 06/30/16 08:00 99.0 Intake and Output 06/29/16 06/29/16 06/30/16 15:00 23:00 07:00 Intake Total 350 ml 50 ml 541.60 ml Output Total 1100 ml 400 ml 590 ml Balance -750 ml -350 ml -48.40 ml Exam PHYSICAL EXAMINATION GENERAL: Young gentleman intubated on mechanical ventilation appears comfortable at rest VITAL SIGNS: see below. HEENT: Pupils equal, round, and reactive to light. CARDIAC: S1, S2, tachycardia. CHEST: Diminished air entry bilaterally. ABDOMEN: Mildly distended. Bowel sounds present no guarding or rebound. EXTREMITIES: No cyanosis, clubbing or edema. NEUROLOGIC: No focal deficits. Results/Medications Result Diagram: 06/30/16 0600 06/30/16 0600 Results 24 hrs Laboratory Tests Test 06/29/16 12:06 06/29/16 12:07 06/29/16 13:11 06/29/16 13:21 Bedside Glucose 141 122 White Blood Count 13.3 #H Red Blood Count 4.75 Hemoglobin 14.7 Hematocrit 43.5 Mean Corpuscular Volume 91.6 Mean Corpuscular Hemoglobin 30.9 Mean Corpuscular Hemoglobin Concent 33.8 Red Cell Distribution Width 12.5 Platelet Count 203 Mean Platelet Volume 9.2 Neutrophils % 90.0 H Lymphocytes % 4.8 L Monocytes % 4.8 Eosinophils % 0.0 Basophils % 0.1 Nucleated Red Blood Cells % 0.0 Neutrophils # 12.0 H Lymphocytes # 0.6 L Monocytes # 0.6 Eosinophils # 0.0 Basophils # 0.0 Nucleated Red Blood Cells # 0.0 Prothrombin Time 13.4 Prothrombin Time Ratio 1.0 INR International Normalized Ratio 1.02 Activated Partial Thromboplast Time 68.3 H Fibrinogen 326.0 # Sodium Level 141 Potassium Level 4.2 Chloride Level 108 Carbon Dioxide Level 17 L Anion Gap 20 H Blood Urea Nitrogen 9 Creatinine 0.57 L Glucose Level 171 Calcium Level 6.9 L Phosphorus Level 2.5 Magnesium Level 1.6 L Troponin I 4.170 *H Amylase Level 165 H Lipase 66 Blood Gas Specimen Source Blood arterial Arterial Blood Date Drawn 06/29/2016 12:20:46 PM Arterial Blood pH (Temp corrected) 7.369 Arterial Blood pCO2 (Temp correct) 21.9 L Arterial Blood pO2 (Temp corrected) 107.3 H Arterial Blood HCO3 12.9 L Arterial Blood Base Excess -11.3 L Arterial Blood Oxygen Saturation 98.2 H Christ Test ACCEPTAB Arterial Blood Gas Puncture Site Right Radial Arterial Blood Carboxyhemoglobin 0.3 Arterial Blood Methemoglobin 0.3 Blood Gas A-a O2 Differential 592.6 H Oxyhemoglobin Percent 97.6 Total Hemoglobin 15.1 Blood Gas Temperature 33.3 Blood Gas Respiration Rate 22.0 Blood Gas Actual Respiration Rate 22 Blood Gas Modality VENT - AC FiO2 100.0 Blood Gas Tidal Volume 500.0 Blood Gas Low PEEP Setting 5.0 Blood Gas Notified Whom JLD Blood Gas Notified Time 06/29/2016 1:26:33 PM Test 06/29/16 14:22 06/29/16 15:31 06/29/16 16:23 06/29/16 17:14 Bedside Glucose 119 111 106 99 Test 06/29/16 18:10 06/29/16 18:15 06/29/16 19:36 06/29/16 20:30 White Blood Count 14.6 H Red Blood Count 4.46 L Hemoglobin 13.4 L Hematocrit 40.6 L Mean Corpuscular Volume 91.0 Mean Corpuscular Hemoglobin 30.0 Mean Corpuscular Hemoglobin Concent 33.0 Red Cell Distribution Width 12.9 Platelet Count 179 Mean Platelet Volume 9.2 Neutrophils % 89.0 H Lymphocytes % 5.4 L Monocytes % 5.1 Eosinophils % 0.0 Basophils % 0.1 Nucleated Red Blood Cells % 0.0 Neutrophils # 13.0 H Lymphocytes # 0.8 Monocytes # 0.8 Eosinophils # 0.0 Basophils # 0.0 Nucleated Red Blood Cells # 0.0 Prothrombin Time 14.8 H Prothrombin Time Ratio 1.2 INR International Normalized Ratio 1.16 Activated Partial Thromboplast Time 61.8 H Fibrinogen 332.0 Sodium Level 137 Potassium Level 3.9 Chloride Level 111 H Carbon Dioxide Level 20 L Anion Gap 10 # Blood Urea Nitrogen 7 Creatinine 0.55 L Glucose Level 118 # Calcium Level 6.7 L Phosphorus Level 2.2 L Magnesium Level 1.5 L Troponin I 3.320 *H Amylase Level 131 H Lipase 100 Bedside Glucose 110 111 Blood Gas Specimen Source Blood arterial Arterial Blood Date Drawn 06/29/2016 8:40:09 PM Arterial Blood pH (Temp corrected) 7.383 Arterial Blood pCO2 (Temp correct) 30.1 L Arterial Blood pO2 (Temp corrected) 97.2 Arterial Blood HCO3 17.6 L Arterial Blood Base Excess -6.3 L Arterial Blood Oxygen Saturation 97.5 Christ Test N/A Arterial Blood Gas Puncture Site Right Brachial Arterial Blood Carboxyhemoglobin 0.3 Arterial Blood Methemoglobin 0.3 Blood Gas A-a O2 Differential 587.3 H Oxyhemoglobin Percent 96.9 Total Hemoglobin 15.0 Blood Gas Temperature 36.4 Blood Gas Respiration Rate 22.0 Blood Gas Actual Respiration Rate 22 Blood Gas Modality VENT - AC FiO2 100.0 Blood Gas Tidal Volume 500.0 Blood Gas High PEEP Setting 5.0 Blood Gas Notified Whom UP Blood Gas Notified Time 06/29/2016 8:54:37 PM Test 06/29/16 20:32 06/29/16 21:42 06/29/16 22:40 06/29/16 23:10 Bedside Glucose 107 102 108 Vancomycin Level Trough 5.2 L Test 06/30/16 00:00 06/30/16 00:41 06/30/16 01:20 06/30/16 01:46 White Blood Count 16.0 H Red Blood Count 4.37 L Hemoglobin 13.3 L Hematocrit 39.7 L Mean Corpuscular Volume 90.8 Mean Corpuscular Hemoglobin 30.4 Mean Corpuscular Hemoglobin Concent 33.5 Red Cell Distribution Width 12.9 Platelet Count 202 Mean Platelet Volume 9.2 Neutrophils % 88.7 H Lymphocytes % 6.1 L Monocytes % 4.8 Eosinophils % 0.0 Basophils % 0.1 Nucleated Red Blood Cells % 0.0 Neutrophils # 14.2 H Lymphocytes # 1.0 Monocytes # 0.8 Eosinophils # 0.0 Basophils # 0.0 Nucleated Red Blood Cells # 0.0 Prothrombin Time 14.4 H Prothrombin Time Ratio 1.1 INR International Normalized Ratio 1.12 Activated Partial Thromboplast Time 52.7 H Fibrinogen 364.0 # Sodium Level 136 Potassium Level 3.9 Chloride Level 110 Carbon Dioxide Level 19 L Anion Gap 11 Blood Urea Nitrogen 7 Creatinine 0.59 L Glucose Level 115 Calcium Level 7.1 L Phosphorus Level 2.5 Magnesium Level 2.1 Troponin I 3.200 *H Amylase Level 93 Lipase 47 Bedside Glucose 110 112 Blood Gas Specimen Source Blood arterial Arterial Blood Date Drawn 06/30/2016 1:45:52 AM Arterial Blood pH (Temp corrected) 7.365 Arterial Blood pCO2 (Temp correct) 30.5 L Arterial Blood pO2 (Temp corrected) 122.7 H Arterial Blood HCO3 17.1 L Arterial Blood Base Excess -7.0 L Arterial Blood Oxygen Saturation 98.2 H Christ Test ACCEPTAB Arterial Blood Gas Puncture Site Left Radial Arterial Blood Carboxyhemoglobin 0.3 Arterial Blood Methemoglobin 0.3 Blood Gas A-a O2 Differential 560.3 H Oxyhemoglobin Percent 97.6 Total Hemoglobin 14.5 Blood Gas Temperature 36.8 Blood Gas Respiration Rate 22.0 Blood Gas Actual Respiration Rate 22 Blood Gas Modality VENT - AC FiO2 100.0 Blood Gas Tidal Volume 500.0 Blood Gas Low PEEP Setting 5.0 Blood Gas Notified Whom MA Blood Gas Notified Time 06/30/2016 1:57:51 AM Test 06/30/16 03:59 06/30/16 05:38 06/30/16 06:00 06/30/16 07:17 Bedside Glucose 99 95 98 White Blood Count 15.6 H Red Blood Count 4.08 L Hemoglobin 12.7 L Hematocrit 37.4 L Mean Corpuscular Volume 91.7 Mean Corpuscular Hemoglobin 31.1 Mean Corpuscular Hemoglobin Concent 34.0 Red Cell Distribution Width 13.0 Platelet Count 194 Mean Platelet Volume 9.6 Neutrophils % 89.0 H Lymphocytes % 6.4 L Monocytes % 4.2 Eosinophils % 0.0 Basophils % 0.1 Nucleated Red Blood Cells % 0.0 Neutrophils # 13.8 H Lymphocytes # 1.0 Monocytes # 0.7 Eosinophils # 0.0 Basophils # 0.0 Nucleated Red Blood Cells # 0.0 Prothrombin Time 14.4 H Prothrombin Time Ratio 1.1 INR International Normalized Ratio 1.12 Activated Partial Thromboplast Time 54.2 H Fibrinogen 449.0 # Sodium Level 136 Potassium Level 3.7 Chloride Level 111 H Carbon Dioxide Level 22 Anion Gap 7 L Blood Urea Nitrogen 7 Creatinine 0.68 Glucose Level 131 Calcium Level 7.2 L Phosphorus Level 2.3 L Magnesium Level 1.8 Troponin I 2.710 *H Amylase Level 65 Lipase 46 Test 06/30/16 07:27 Blood Gas Specimen Source Blood arterial Arterial Blood Date Drawn 06/30/2016 7:40:25 AM Arterial Blood pH (Temp corrected) 7.368 Arterial Blood pCO2 (Temp correct) 32.6 L Arterial Blood pO2 (Temp corrected) 94.3 Arterial Blood HCO3 18.3 L Arterial Blood Base Excess -5.9 L Arterial Blood Oxygen Saturation 96.9 Christ Test ACCEPTAB Arterial Blood Gas Puncture Site Right Radial Arterial Blood Carboxyhemoglobin 0.3 Arterial Blood Methemoglobin 0.3 Blood Gas A-a O2 Differential 297.6 H Oxyhemoglobin Percent 96.3 Total Hemoglobin 13.6 Blood Gas Temperature 37.0 Blood Gas Respiration Rate 22.0 Blood Gas Actual Respiration Rate 24 Blood Gas Modality VENT - AC FiO2 60.0 Blood Gas Tidal Volume 500.0 Blood Gas Low PEEP Setting 5.0 Blood Gas Notified Whom JLD Blood Gas Notified Time 06/30/2016 7:57:15 AM Medications Current Medications Fentanyl 25 mcg 25 mcg Q10M PRN IV SEDATION; Start 06/28/16 at 17:00 Midazolam HCl 50 ml @ 2 mls/hr ONCE IV Last administered on 06/30/16 07:03; Admin Dose 7 MLS/HR; Start 06/28/16 at 17:00 Fentanyl 100 ml @ 2.5 mls/hr TITRATE IV Last administered on 06/30/16 00:39; Admin Dose 10 MLS/HR; Start 06/28/16 at 19:00 Sodium Chloride (NS) 1,000 ml @ 100 mls/hr Q10H IV Last administered on 02:01; Admin Dose 100 MLS/HR; Start 06/28/16 at 20:42 Famotidine 20 mg 20 mg Q12 IV Last administered on 06/30/16 08:21; Admin Dose 20 MG; Start 06/28/16 at 21:00 Piperacillin Sod/ Tazobactam Sod 100 ml @ 200 mls/hr Q6 IVPB Last administered on 06/30/16 05:44; Admin Dose 200 MLS/HR; Start 06/29/16 at 00:00 Heparin Sodium (Porcine) (Heparin 04577 Units/250 ml) 250 ml @ 0 mls/hr Q24H IV Last administered on 06/30/16 04:31; Admin Dose 8.5 MLS/HR; Start 06/29/16 at 08:30 Heparin Sodium (Porcine) (Heparin (1000 Units/ml)) 4,000 unit PRN PRN IV PENDING LAB VALUE; Start 06/29/16 at 08:30 Meperidine HCl 25 mg 25 mg Q4H PRN IV shivering post hypothermia pro Last administered on 06/29/16 14:44; Admin Dose 25 MG; Start 06/29/16 at 14:30 Vancomycin HCl/ Sodium Chloride (Vancocin/NS) 250 ml @ 83.333 mls/ hr Q8H IVPB Last administered on 06/30/16 08:21; Admin Dose 83.333 MLS/HR; Start at 08:00 Dicyclomine HCl (Bentyl) 20 mg Q6H PRN NGT Hiccups; Start 06/30/16 at 06:30 Insulin Aspart (Novolog Insulin Pen) NOVOLOG *MILD* ALGORI... Q6 SC ; Start at 12:00 Miscellaneous Information 1 ea NOTE XX ; Start 06/30/16 at 09:30 Glucose (Glutose) 15 gm Q15M PRN PO DECREASED GLUCOSE; Start 06/30/16 at 09:30 Glucose (Glutose) 22.5 gm Q15M PRN PO DECREASED GLUCOSE; Start 06/30/16 at 09: 30 Dextrose (D50w Syringe) 25 ml Q15M PRN IV DECREASED GLUCOSE; Start 06/30/16 at 09:30 Dextrose (D50w Syringe) 50 ml Q15M PRN IV DECREASED GLUCOSE; Start 06/30/16 at 09:30 Glucagon (Glucagen) 1 mg Q15M PRN IM DECREASED GLUCOSE; Start 06/30/16 at 09:30 Glucose (Glutose) 15 gm Q15M PRN BUCCAL DECREASED GLUCOSE; Start 06/30/16 at 09 :30 Aspirin (Halfprin) 81 mg DAILY PO Last administered on 06/30/16 10:06; Admin Dose 81 MG; Start 06/30/16 at 09:30 Atorvastatin Calcium (Lipitor) 80 mg DAILY PO Last administered on 06/30/16t 10 :06; Admin Dose 80 MG; Start 06/30/16 at 09:30 Acetaminophen (Tylenol Liquid) 650 mg Q6 PRN NGT PAIN AND OR ELEVATED TEMP; Start 06/30/16 at 11:00 Assessment/Plan Chief Complaint/Hosp Course Assessment 1. Cardiopulmonary arrest. Ventricular arrhythmia following spontaneous return of circulation. Significantly decreased ejection fraction consistent with severe systolic dysfunction 2. Hypoxemic respiratory failure 3. Possible aspiration pneumonia 4. Pulmonary edema on chest x-ray Plan 1. Continue cardiology recommendations 2. Gentle diuresis as tolerated 3. CPAP weaning trial hopefully safely extubated 4. Speech therapy evaluation in morning 5. Possible AICD placement given significantly decreased ejection fraction Disposition Continue ICU Discussed with primary care team and nursing staff Critical care time 40 minutes Problems: ELIZABETH STERN MD, [facility] Jun 30, 2016 11:08
[2016-06-30 11:48] LABS: CHOL/HDL RATIO 2.3 RATIO
--- NOTE | 2016-06-30 11:56 | CONS ---
DATE OF ADMISSION: 06/28/2016 DATE OF CONSULTATION: 06/30/2016 CARDIOLOGY CONSULTATION REASON FOR CONSULTATION: Cardiac arrest, positive troponin, consistent with [id number] myocar dial infarction and abnormal electrocardiogram. REQUESTING PHYSICIAN: Dr. Oliveros from the hospitalist service. HISTORY OF PRESENT ILLNESS: Mr. Villatoro is a 36-year-old male without a significant past medical hist ory, who presented after a cardiac arrest which was witnessed and upon arrival of EMS the patient wa s found to be in ventricular fibrillation and received epinephrine x1, defibrillation x1, with retu rn of spontaneous circulating rhythm. The patient was brought t [facility] where initial EKG was concerning for possible inferior ST elevations. The patient ad ditionally had an initial negative troponin. The heavy antiarmor weapons infantryman supervising floorperson was called, wh o decided the patient did not meet STEMI criteria and the patient therefore received medical therapy , including intubation, initiation of amiodarone and serial EKGs, which thereafter did not reveal an y significant ST elevations, but had nonspecific ST and T-wave abnormalities, with inferior elevatio ns returning to baseline. The patient's troponin did become positive, peaking thereafter later in at about 5.6, and thereafter trending down, with a CK-MB most recently of 107. The patient's initial chest x-ray had revealed pulmonary edema and mild cardiomegaly. The patient underwent hypo thermic protocol and has now been admitted to the ICU, with ongoing rewarming, remains on amiodarone at this time and a heparin drip, and intubated. PAST MEDICAL HISTORY: As above in the HPI. MEDICATIONS CURRENTLY IN THE HOSPITAL: 1. Aspirin 81 mg daily. 2. Lipitor 80 mg at bedtime. 3. Bentyl p.r.n. 4. Vancomycin. 5. Levophed pressor support. 6. Heparin IV. 7. Potassium chloride. 8. Zosyn. 9. Vancomycin. 10. IV fluid hydration, 100 mL an hour. 11. Midazolam IV. ALLERGIES: NO KNOWN DRUG ALLERGIES. SOCIAL HISTORY: History of positive ETOH. Questionable history of any possible drug use or tobacco intake. FAMILY HISTORY: Unknown. PHYSICAL EXAMINATION: VITAL SIGNS: Temperature of 99, blood pressure 98/81, pulse 92, respiratory rate 20, saturating 100 %. GENERAL: The patient is intubated and sedated, wakes up and is agitated, confused. NECK: JVP approximately 9 cm of water. CHEST: Upper airway with transmitted rhonchorous sounds. HEART: Regular rate and rhythm. Normal S1, S2. A I/ systolic murmur, laterally displaced PMI. ABDOMEN: Positive bowel sounds, soft. EXTREMITIES: No pitting edema. 1+ pulses bilateral posterior tibial. LABORATORY: As above in the HPI, with most recently from today: Sodium 136, potassium 3.7, creatini ne 0.68, BUN of 7. Troponin down to 2.7. White blood cell count 15.6, hemoglobin 12.7, platelet co unt 194, ABG revealing a pH of 7.368, a paO2 of 94, a pCO2 of 32, INR of 1.1. Tox screen positive f or benzos. IMAGING STUDIES: Chest x-ray most recently from the revealing pulmonary edema, mildly enlarged cardiac silhouette. CTA from the revealing no definite evidence of pulmonary emboli. Bilater al lower lobe atelectasis consolidation and bilateral upper lobe partial atelectasis. A head CT reve aled a normal noncontrast CT of the brain from the . Electrocardiogram most recently from today reveals normal sinus rhythm, rate of 73, with normal axis and development of borderline inferior Q's the patient did have previously. IMPRESSION: 1. Positive troponin, consistent with a non-ST elevation myocardial infarction. 2. Status post cardiac arrest. 3. Cardiomyopathy, with a severely depressed left ventricular ejection fraction of approximately 15 % to 20% by echo on this admission. 4. Respiratory failure. Status post intubation. 5. Ventricular fibrillation arrest, witnessed, status post defibrillator x1. 6. Encephalopathy. 7. Leukocytosis. 8. Anemia. 9. Hypotension. RECOMMENDATIONS: 1. At this time, would maintain the patient on telemetry monitoring to follow rhythm and rate contr ol closely. 2. Would continue to wean the patient's Levophed pressure support as tolerated. 3. Continue the patient's aspirin at this time for prophylaxis against cardiovascular events and di scontinue the patient's heparin at this time. Continue to trend the patient's cardiac enzymes. 4. Wean the patient's vent as tolerated. 5. Follow the patient's mental status closely. 6. Continue the patient's statin at this time. 7. Continue the patient's antibiotics and follow up all culture data. 8. Probable need for left heart catheterization to define the patient's coronary anatomy once the p atient is stabilized from cardiac arrest and mental status hemodynamic standpoint. Thank you for allowing me to take part in the care of this patient. I will continue to follow along very closely with you, with further recommendations to be made as the patient progresses through [facility] clinical course. Dictated By: ELIGIO DIAZ/ENMA Conf#: [id number] DID#: [id number] CC: IMER OLIVEROS MD;*EndCC*
[2016-06-30] MEDS: INSULIN ASPART [NOVOLOG] 3 ML PEN SC SCH ×3 (12:00→23:48)
[2016-06-30 13:42] LABS: THYROID STIMULATING HORMONE 0.218 MIU/L (0.465-4.680)
[2016-06-30 14:17] LABS: AADO2 Arterial 182.1 mmHg (7.0-24.0); Allen Test ACCEPTAB; Arterial COHb 0.3 % (0.0-3.0); Arterial Fraction of Oxyhgb 92.7 % (93.0-99.0); Arterial HCO3 20.6 mmol/L (22.0-26.0); Arterial MetHb 0.3 % (0.0-1.5); Arterial Total Hemglobin 12.7 g/dl (12.0-18.0); Blood Gas PS 10; MODE VENT - CPAP
[2016-06-30] MEDS ORDERED: LORAZEPAM 2 MG INJ IV ONE (15:00)
[2016-06-30] MEDS ORDERED: LORAZEPAM 2 MG INJ ONE (15:01)
[2016-06-30] MEDS ORDERED: FUROSEMIDE 40 MG INJ ONE (15:22)
[2016-06-30] MEDS ORDERED: FUROSEMIDE 40 MG INJ IV ONE ×2 (15:30→17:00)
[2016-06-30] MEDS ORDERED: DIGOXIN 500 MCG INJ IV ONE (15:30)
[2016-06-30] MEDS: ACETAMINOPHEN 650MG/20.3ML CUP NGT PRN (15:34)
[2016-06-30] MEDS ORDERED: AMIODARONE 150MG/D5W BOLUS 100 ML ONE (15:57)
[2016-06-30] MEDS ORDERED: AMIODARONE 150MG/D5W BOLUS 100 ML IV ONE (16:00)
[2016-06-30 16:20] LABS: AADO2 Arterial 639.1 mmHg (7.0-24.0); Arterial Base Excess -10.6 mmol/L (-3.0-3); Arterial COHb 0.3 % (0.0-3.0); Arterial Fraction of Oxyhgb 57.3 % (93.0-99.0); Arterial HCO3 16.3 mmol/L (22.0-26.0); Arterial MetHb 0.1 % (0.0-1.5); Arterial Total Hemglobin 14.1 g/dl (12.0-18.0); MODE VENT - AC
--- NOTE | 2016-06-30 16:34 | RADRPT ---
PROCEDURE: XR Chest. CLINICAL INDICATION: pain TECHNIQUE: Single portable view of the chest was obtained COMPARISON: Yesterday FINDINGS: There are worsening extensive bilateral upper lobe and lower lobe alveolar infiltrates. There is mi ld cardiomegaly.. The heart, lungs and mediastinum are otherwise unchanged. There is an endotracheal tube, nasogastric tube and right-sided central line in place. There are worsening bilateral pleura l effusions.. RPTAT: AA IMPRESSION: Worsening extensive bilateral upper lobe and lower lobe alveolar infiltrates and bilateral pleural e ffusions. No other significant change. .John Clement MD, MD Date Time Electronically viewed and signed by .John Clement MD, on 06/30/2016 16:34 .S/
[2016-06-30] MEDS: DOBUTamine/D5W 1 MG/ML DRIP 250 ML IV SCH (16:43)
[2016-06-30 16:44] LABS: POTASSIUM 3.6 mmol/L (3.5-5.1)
[2016-06-30 16:47] LABS: CREATININE 1.03 mg/dl (0.61-1.24)
[2016-06-30 16:48] LABS: CALCIUM 7.5 mg/dl (8.4-10.2)
[2016-06-30] MEDS ORDERED: AMIODARONE 900 MG in DEXTROSE 5% 482 ML IV SCH (17:00)
[2016-06-30] MEDS ORDERED: BUMETANIDE 1 MG INJ IV ONE ×3 (17:30→23:30)
[2016-06-30] MEDS: PROPOFOL 100 ML IV SCH (17:30)
[2016-06-30] MEDS ORDERED: BUMETANIDE 2 MG in DEXTROSE 5% 17 ML IV ONE (17:30)
[2016-06-30] MEDS: LORAZEPAM 2 MG INJ IV PRN ×2 (17:49→19:03)
[2016-06-30 20:13] LABS: AADO2 Arterial 642.1 mmHg (7.0-24.0); Allen Test ACCEPTAB; Arterial Base Excess -5.3 mmol/L (-3.0-3); Arterial COHb 0.3 % (0.0-3.0); Arterial Fraction of Oxyhgb 68.5 % (93.0-99.0); Arterial HCO3 19.3 mmol/L (22.0-26.0); Arterial MetHb 0.3 % (0.0-1.5); Arterial Total Hemglobin 14.6 g/dl (12.0-18.0); MODE VENT - AC
--- NOTE | 2016-06-30 21:19 | RADRPT ---
PROCEDURE: XR Chest. CLINICAL INDICATION: Endotracheal tube placement. TECHNIQUE: Single frontal chest x-ray. COMPARISON: 06/30/2016 FINDINGS: Endotracheal tube is present with the tip the level of clavicles, 5.3 cm above the tabatha. Right in ternal jugular central line tip is in the SVC. NG tube tip is in the stomach. Heart is normal in s ize. There is diffuse bilateral predominate central infiltrates, decreased.. No focal infiltrate is seen. There is no pleural effusion. There is no pneumothorax. The osseous structures are unremar kable. IMPRESSION: Endotracheal tube tip above tabatha. Decreased bilateral infiltrates. Otherwise no change. RPTAT: HMVK .Moisés Rascon MD, MD Date Time Electronically viewed and signed by .Moisés Rascon MD, on 06/30/2016 21:18 .K/
[2016-06-30] MEDS: DICYCLOMINE 10 MG CAP NGT PRN (21:23)
[2016-06-30] MEDS: ACETAMINOPHEN 650 MG SUPP PR PRN (21:33)
[2016-06-30 22:38] LABS: AADO2 Arterial 638.8 mmHg (7.0-24.0); Allen Test ACCEPTAB; Arterial Base Excess -3.2 mmol/L (-3.0-3); Arterial COHb 0.3 % (0.0-3.0); Arterial MetHb 0.3 % (0.0-1.5); Arterial Total Hemglobin 13.7 g/dl (12.0-18.0); MODE VENT - PC
[2016-07-01] VITALS (107 sets, daily range): BP systolic 79–129; BP diastolic 50–77; PULSE 73–105; RESP 16–26
[2016-07-01] MEDS: NORepinephrine 8MG/250 ML (PMX 250 ML IV SCH (00:03)
[2016-07-01] MEDS: FENTAnyl (DRIP) 1000 mcg/100mL 100 ML IV SCH ×3 (01:08→21:27)
[2016-07-01 01:25] LABS: AADO2 Arterial 557.8 mmHg (7.0-24.0); Allen Test ACCEPTAB; Arterial Base Excess -2.6 mmol/L (-3.0-3); Arterial COHb 0.3 % (0.0-3.0); Arterial Fraction of Oxyhgb 97.6 % (93.0-99.0); Arterial HCO3 18.1 mmol/L (22.0-26.0); Arterial MetHb 0.4 % (0.0-1.5); MODE VENT - PC
[2016-07-01 02:40] LABS: MAGNESIUM 1.6 mg/dl (1.7-2.5)
[2016-07-01 02:46] LABS: POTASSIUM 2.8 mmol/L (3.5-5.1)
[2016-07-01] MEDS ORDERED: MAGNESIUM SULFATE 1 GM/D5W 100 ML IVPB ONE ×2 (03:00→10:00)
[2016-07-01] MEDS: POTASSIUM CHLORIDE 50 ML IVPB PRN ×4 (03:10→08:33)
[2016-07-01] MEDS: DICYCLOMINE 10 MG CAP NGT PRN ×2 (03:15→09:54)
[2016-07-01] MEDS: MIDAZOLAM (DRIP) 50 mg/50 mL 50 ML IV SCH ×4 (03:30→20:17)
[2016-07-01] MEDS: PROPOFOL 100 ML IV SCH ×2 (05:30→12:11)
[2016-07-01] MEDS: PIPER-TAZO 3.375 GM IV (PMX) 100 ML IVPB SCH ×4 (05:34→23:46)
[2016-07-01 05:46] LABS: AADO2 Arterial 454.4 mmHg (7.0-24.0); Allen Test ACCEPTAB; Arterial Base Excess 0 mmol/L (-3.0-3); Arterial COHb 0.3 % (0.0-3.0); Arterial Fraction of Oxyhgb 96.7 % (93.0-99.0); Arterial MetHb 0.3 % (0.0-1.5); Arterial Total Hemglobin 12.4 g/dl (12.0-18.0); Blood Gas Mean Airway Pressure 25; MODE VENT - PC
[2016-07-01] MEDS: INSULIN ASPART [NOVOLOG] 3 ML PEN SC SCH ×4 (05:58→23:54)
--- NOTE | 2016-07-01 06:07 | RADRPT ---
PROCEDURE: XR Chest. CLINICAL INDICATION: Endotracheal tube adjustment TECHNIQUE: A single AP view of the chest was obtained. COMPARISON: Chest x-ray dated 06/30/2016 FINDINGS: The endotracheal tube tip is approximately 3.7 cm above the tabatha. The tip of the enteric tube pr ojects over the left upper quadrant. There is a right internal jugular central venous catheter with tip in the mid SVC. There are diffuse bilateral reticulonodular interstitial opacities. No focal airspace opacification , pleural effusion or pneumothorax is seen. The cardiomediastinal silhouette is within normal limit s for size. The osseous structures are unremarkable. IMPRESSION: 1. Diffuse bilateral reticulonodular interstitial opacities may reflect interstitial edema or pneum onia. Overall, no significant interval change. 2. Tubes and lines, as described above. RPTAT: HH .Shabnam Espinoza MD, MD Date Time Electronically viewed and signed by .Shabnam Espinoza MD, on 07/01/2016 06:06 .Melinda/
[2016-07-01 06:55] LABS: ADD SCAN DIFF NO
[2016-07-01 07:06] LABS: BASOPHILS % 0.2 % (0.0-2.0); HEMOGLOBIN 11.3 g/dl (14.0-18.0); LYMPHOCYTES # 1.6 10^3/ul (0.8-2.9); LYMPHOCYTES % 8.9 % (15.0-51.0); MEAN CORPUSCULAR HEMOGLOBIN 30.5 pg (29.0-33.0); MEAN CORPUSCULAR HGB CONC 34.2 g/dl (32.0-37.0); MEAN CORPUSCULAR VOLUME 88.9 fl (82.0-101.0); MEAN PLATELET VOLUME 9.8 fl (7.4-10.4); MONOCYTE # 0.9 10^3/ul (0.3-0.9); NEUTROPHIL # 15.6 10^3/ul (1.6-7.5); PLATELET COUNT 148 10^3/UL (140-415); RED BLOOD COUNT 3.71 10^6/ul (4.70-6.10); RED CELL DISTRIBUTION WIDTH 13.2 % (11.5-14.5); WHITE BLOOD COUNT 18.3 10^3/ul (4.8-10.8)
[2016-07-01 07:17] LABS: CALCIUM 7.3 mg/dl (8.4-10.2); CREATININE 1.07 mg/dl (0.61-1.24); PHOSPHORUS 1.3 mg/dl (2.5-4.9); POTASSIUM 3.3 mmol/L (3.5-5.1)
--- NOTE | 2016-07-01 07:40 | RADRPT ---
PROCEDURE: XR Chest. CLINICAL INDICATION: ETT Readjusted, to comfirm placement TECHNIQUE: Single frontal view of the chest was obtained. COMPARISON: Chest x-ray from 07/01/2016 at 00:13 hours FINDINGS: The endotracheal tube, enteric tube, and right internal jugular central venous line are unchanged. The heart and mediastinum are within normal limits. There is stable prominence of interstitial markings consistent with at least moderate congestive [place] nges although underlying pneumonia cannot be excluded. There is no significant pleural effusion or pneumothorax. IMPRESSION: No significant interval change. RPTAT: EE Physician Carrie Date Time Electronically viewed and signed by Physician Carrie on 07/01/2016 07:39 /
[2016-07-01 07:46] LABS: CK-MB 86.8 ng/ml (0.0-2.4)
[2016-07-01 07:49] LABS: TROPONIN-I 40.9 ng/ml (0.00-0.12)
[2016-07-01] MEDS: HEPARIN 25000 UNITS/D5W 250 ML IV SCH (08:30)
[2016-07-01] MEDS: ASPIRIN (EC) 81 MG TAB PO SCH (08:33)
[2016-07-01] MEDS: ATORVASTATIN 80 MG TAB PO SCH (08:33)
[2016-07-01] MEDS: VANCOMYCIN 1.5 GM in SOD CHLORIDE 0.9% 250 ML IVPB SCH ×2 (08:33→21:28)
[2016-07-01] MEDS: FAMOTIDINE 20 MG INJ IV SCH ×2 (08:33→21:28)
--- NOTE | 2016-07-01 08:52 | PN ---
Date/Time of Note Date/Time of Note DATE: 07/01/16 TIME: 08:51 Assessment/Plan VTE Prophylaxis VTE Prophylaxis Intervention: heparin Lines/Catheters IV [facility]ter Type [facility]from [facility]): Central Line Central line still needed: Yes Urinary Cath still in place: Yes Reason Cath still needed: other (indicate) Assessment/Plan Assessment/Plan IMPRESSION: 1. Status post ventricular fibrillation cardiac arrest with ROSC. * s/p hypothermia protocol 2. NSTEMI 3. Vent dependent respiratory failure secondary to cardiac arrest. 4. Shock likely septic with a cardiogenic component 5. Severe systolic dysfunction with EF of 15 to 20%. 6. Pulmonary edema. 7. Bilateral pneumonia, possibly from aspiration. 8. Bacteremia per Nursing report 9. Chronic Tobacco user 10. Acute kidney injury, resolved. 11. Probable DM2 and dyslipidemia PLAN: * Continue ventilator support and pressor support and wean off as tolerated. * Continue current medical management including Pepcid / Heparin / aspirin / antibiotics / diuresis * Glycosuria and hyperglycemia noted on arrival / r/o DM / continue SSI * Replace electrolytes and closely monitor * Await official culture reports and sensitivity * R/o Influenza * Further workup and management per clinical course. Spoke with family at bedside. CC >35mins Exam/Review of Systems Vital Signs Vitals Vital Signs Date Time Temp Pulse Resp B/P Pulse Ox O2 Delivery O2 Flow Rate FiO2 07/01/16 07:48 84 24 100 80 07/01/16 07:00 100/63 Mechanical Ventilator 07/01/16 06:00 100.8 Intake and Output 06/30/16 06/30/16 07/01/16 15:00 23:00 07:00 Intake Total 120 ml 505.772 ml 1085.799 ml Output Total 382 ml 918 ml 1317 ml Balance -262 ml -412.228 ml -231.201 ml Exam GENERAL: The patient intubated, and on sedation; however, he actually opens his eye and fighting the vent as well as the restraints. He did actually attempt to shake my hand with his right hand after several tries. HEENT: No obvious head deformity. His pupils are reactive to light. CARDIOVASCULAR: Tachycardic with regular rhythm. LUNGS: He has decreased breath sounds at the bases and minimal scattered wheezing on the right side of his chest anteriorly. ABDOMEN: Soft. No grimaces noted on palpation. There was positive bowel sounds and was not distended. EXTREMITIES: No edema. NEUROLOGIC: See above. Results Result Diagram: 07/01/16 0650 07/01/16 0650 Results 24 hrs Laboratory Tests Test 06/30/16 12:12 06/30/16 14:00 06/30/16 14:40 06/30/16 16:00 Bedside Glucose 116 Blood Gas Specimen Source Blood arterial Blood arterial Arterial Blood Date Drawn 06/30/2016 2:10:51 PM 06/30/2016 4:00:16 PM Arterial Blood pH (Temp corrected) 7.418 7.228 *L Arterial Blood pCO2 (Temp correct) 32.7 L 40.1 Arterial Blood pO2 (Temp corrected) 65.5 L 33.8 *L Arterial Blood HCO3 20.6 L 16.3 L Arterial Blood Base Excess -3.0 -10.6 L Arterial Blood Oxygen Saturation 93.3 L 57.5 L Christ Test ACCEPTAB N/A Arterial Blood Gas Puncture Site Right Radial Right Brachial Arterial Blood Carboxyhemoglobin 0.3 0.3 Arterial Blood Methemoglobin 0.3 0.1 Blood Gas A-a O2 Differential 182.1 H 639.1 H Oxyhemoglobin Percent 92.7 L 57.3 L Total Hemoglobin 12.7 14.1 Blood Gas Temperature 37.0 37.0 Blood Gas Actual Respiration Rate 22 22 Blood Gas Modality VENT - CPAP VENT - AC FiO2 40.0 100.0 Blood Gas Low PEEP Setting 5.0 10.0 Blood Gas Pressure Support 10 Blood Gas Notified Whom Ni JAMES Blood Gas Notified Time 06/30/2016 2:16:52 PM 06/30/2016 4:20:18 PM Activated Partial Thromboplast Time 62.6 H Blood Gas Respiration Rate 22.0 Blood Gas Tidal Volume 500.0 Blood Gas Critical Value Read Back DR. OLIVEROS Test 06/30/16 16:05 06/30/16 17:55 06/30/16 20:01 06/30/16 22:30 Sodium Level 140 Potassium Level 3.6 Chloride Level 106 Carbon Dioxide Level 20 L Anion Gap 18 #H Blood Urea Nitrogen 9 Creatinine 1.03 Glucose Level 205 Calcium Level 7.5 L Troponin I 1.490 *H Bedside Glucose 125 Blood Gas Specimen Source Blood arterial Blood arterial Arterial Blood Date Drawn 06/30/2016 8:00:32 PM 06/30/2016 10:15:47 PM Arterial Blood pH (Temp corrected) 7.359 7.469 H Arterial Blood pCO2 (Temp correct) 35.0 26.7 L Arterial Blood pO2 (Temp corrected) 35.9 *L 47.5 *L Arterial Blood HCO3 19.3 L 19.0 L Arterial Blood Base Excess -5.3 L -3.2 L Arterial Blood Oxygen Saturation 68.9 L 86.5 L Christ Test ACCEPTAB ACCEPTAB Arterial Blood Gas Puncture Site Left Radial Right Radial Arterial Blood Carboxyhemoglobin 0.3 0.3 Arterial Blood Methemoglobin 0.3 0.3 Blood Gas A-a O2 Differential 642.1 H 638.8 H Oxyhemoglobin Percent 68.5 L 86.0 L Total Hemoglobin 14.6 13.7 Blood Gas Temperature 37.0 37.0 Blood Gas Respiration Rate 22.0 22.0 Blood Gas Actual Respiration Rate 28 22 Blood Gas Modality VENT - AC VENT - PC FiO2 100.0 100.0 Blood Gas Tidal Volume 550.0 Blood Gas Low PEEP Setting 14.0 12.0 Blood Gas Critical Value Read Back JAIME SANDOVAL RN Blood Gas Notified Whom ARASELI MARX Blood Gas Notified Time 06/30/2016 8:13:19 PM 06/30/2016 10:38:13 PM Blood Gas High PEEP Setting 32.0 Test 06/30/16 23:47 07/01/16 01:15 07/01/16 02:00 07/01/16 05:00 Bedside Glucose 131 Blood Gas Specimen Source Blood arterial Blood arterial Arterial Blood Date Drawn 07/01/2016 1:00:44 AM 07/01/2016 5:34:02 AM Arterial Blood pH (Temp corrected) 7.534 H 7.550 H Arterial Blood pCO2 (Temp correct) 21.9 L 24.6 L Arterial Blood pO2 (Temp corrected) 133.3 H 90.2 Arterial Blood HCO3 18.1 L 21.0 L Arterial Blood Base Excess -2.6 0 Arterial Blood Oxygen Saturation 98.3 H 97.3 Christ Test ACCEPTAB ACCEPTAB Arterial Blood Gas Puncture Site Right Radial Right Radial Arterial Blood Carboxyhemoglobin 0.3 0.3 Arterial Blood Methemoglobin 0.4 0.3 Blood Gas A-a O2 Differential 557.8 H 454.4 H Oxyhemoglobin Percent 97.6 96.7 Total Hemoglobin 13.0 12.4 Blood Gas Temperature 37.0 37.0 Blood Gas Respiration Rate 22.0 22.0 Blood Gas Actual Respiration Rate 22 22 Blood Gas Modality VENT - PC VENT - PC FiO2 100.0 80.0 Blood Gas High PEEP Setting 32.0 32.0 Blood Gas Low PEEP Setting 15.0 15.0 Blood Gas Notified Whom ARASELI Jocelyne[facility]ULEIMAMCKEON [facility] Blood Gas Notified Time 07/01/2016 1:25:00 AM 07/01/2016 5:46:31 AM Potassium Level 2.8 *L Magnesium Level 1.6 L Blood Gas Inspiratory Time 0.80 Blood Gas Mean Airway Pressure 25 Blood Gas Inspiratory Pressure 48.0 Test 07/01/16 05:40 07/01/16 06:50 Bedside Glucose 143 White Blood Count 18.3 H Red Blood Count 3.71 L Hemoglobin 11.3 L Hematocrit 33.0 L Mean Corpuscular Volume 88.9 Mean Corpuscular Hemoglobin 30.5 Mean Corpuscular Hemoglobin Concent 34.2 Red Cell Distribution Width 13.2 Platelet Count 148 # Mean Platelet Volume 9.8 Neutrophils % 85.0 H Lymphocytes % 8.9 L Monocytes % 5.0 Eosinophils % 0.0 Basophils % 0.2 Nucleated Red Blood Cells % 0.0 Neutrophils # 15.6 H Lymphocytes # 1.6 Monocytes # 0.9 Eosinophils # 0.0 Basophils # 0.0 Nucleated Red Blood Cells # 0.0 Sodium Level 136 Potassium Level 3.3 L Chloride Level 109 Carbon Dioxide Level 23 Anion Gap 7 #L Blood Urea Nitrogen 10 Creatinine 1.07 Glucose Level 125 # Calcium Level 7.3 L Phosphorus Level 1.3 #L Magnesium Level 2.0 Creatine Kinase Pending Creatine Kinase Index Pending Creatinine Kinase MB (Mass) 86.80 H Troponin I 40.900 *H Vancomycin Level Trough 17.2 Medications Medications Current Medications Fentanyl 25 mcg 25 mcg Q10M PRN IV SEDATION; Start 06/28/16 at 17:00 Midazolam HCl 50 ml @ 2 mls/hr ONCE IV Last administered on 07/01/16 03:30; Admin Dose 10 MLS/HR; Start 06/28/16 at 17:00 Fentanyl (Sublimaze) 100 ml @ 2.5 mls/hr TITRATE IV Last administered on 01:08; Admin Dose 10 MLS/HR; Start 06/28/16 at 19:00 Famotidine 20 mg 20 mg Q12 IV Last administered on 07/01/16 08:33; Admin Dose 20 MG; Start 06/28/16 at 21:00 Piperacillin Sod/ Tazobactam Sod 100 ml @ 200 mls/hr Q6 IVPB Last administered on 07/01/16 05:34; Admin Dose 200 MLS/HR; Start 06/29/16 at 00:00 Heparin Sodium (Porcine) (Heparin 30798 Units/250 ml) 250 ml @ 0 mls/hr Q24H IV Last administered on 06/30/16 04:31; Admin Dose 8.5 MLS/HR; Start 06/29/16 at 08:30 Heparin Sodium (Porcine) (Heparin (1000 Units/ml)) 4,000 unit PRN PRN IV PENDING LAB VALUE; Start 06/29/16 at 08:30 Meperidine HCl 25 mg 25 mg Q4H PRN IV shivering post hypothermia pro Last administered on 06/29/16 14:44; Admin Dose 25 MG; Start 06/29/16 at 14:30 Vancomycin HCl/ Sodium Chloride (Vancocin/NS) 250 ml @ 83.333 mls/ hr Q8H IVPB Last administered on 07/01/16 08:33; Admin Dose 83.333 MLS/HR; Start at 08:00 Dicyclomine HCl (Bentyl) 20 mg Q6H PRN NGT Hiccups Last administered on 03:15; Admin Dose 20 MG; Start 06/30/16 at 06:30 Insulin Aspart (Novolog Insulin Pen) NOVOLOG *MILD* ALGORI... Q6 SC Last administered on 07/01/16 05:58; Admin Dose 1 UNIT; Start 06/30/16 at 12:00 Miscellaneous Information 1 ea NOTE XX ; Start 06/30/16 at 09:30 Glucose (Glutose) 15 gm Q15M PRN PO DECREASED GLUCOSE; Start 06/30/16 at 09:30 Glucose (Glutose) 22.5 gm Q15M PRN PO DECREASED GLUCOSE; Start 06/30/16 at 09: 30 Dextrose (D50w Syringe) 25 ml Q15M PRN IV DECREASED GLUCOSE; Start 06/30/16 at 09:30 Dextrose (D50w Syringe) 50 ml Q15M PRN IV DECREASED GLUCOSE; Start 06/30/16 at 09:30 Glucagon (Glucagen) 1 mg Q15M PRN IM DECREASED GLUCOSE; Start 06/30/16 at 09:30 Glucose (Glutose) 15 gm Q15M PRN BUCCAL DECREASED GLUCOSE; Start 06/30/16 at 09 :30 Aspirin (Halfprin) 81 mg DAILY PO Last administered on 07/01/16 08:33; Admin Dose 81 MG; Start 06/30/16 at 09:30 Atorvastatin Calcium (Lipitor) 80 mg DAILY PO Last administered on 07/01/16 08 :33; Admin Dose 80 MG; Start 06/30/16 at 09:30 Acetaminophen 650 mg 650 mg Q6 PRN NGT PAIN AND OR ELEVATED TEMP Last administered on 06/30/16 15:34; Admin Dose 650 MG; Start 06/30/16 at 11:00 Dobutamine HCl/ Dextrose 250 ml @ 11.25 mls/ hr TITRATE IV Last administered on 06/30/16 16:43; Admin Dose 11.25 MLS/HR; Start 06/30/16 at 16:30 Amiodarone HCl/ Dextrose (Cordarone Iv/ D5W) 500 ml @ 0 mls/hr Q0M IV Last administered on 06/30/16 17:21; Admin Dose 16.7 MLS/HR; Start 06/30/16 at 17:00 Lorazepam 2 mg 2 mg Q1HWA PRN IV AGITATION Last administered on 06/30/16 19:03 ; Admin Dose 2 MG; Start 06/30/16 at 17:30 Propofol (Diprivan) 100 ml @ 2.25 mls/hr Q12H IV ; Start 06/30/16 at 17:30 Acetaminophen (Tylenol Supp) 1,000 mg Q6H PRN [place] Fever Last administered on 21:33; Admin Dose 1,000 MG; Start 06/30/16 at 21:30 Procedures Procedures PROCEDURE: XR Chest. CLINICAL INDICATION: Endotracheal tube adjustment TECHNIQUE: A single AP view of the chest was obtained. COMPARISON: Chest x-ray dated 06/30/2016 FINDINGS: The endotracheal tube tip is approximately 3.7 cm above the tabatha. The tip of the enteric tube projects over the left upper quadrant. There is a right internal jugular central venous catheter with tip in the mid SVC. There are diffuse bilateral reticulonodular interstitial opacities. No focal airspace opacification, pleural effusion or pneumothorax is seen. The cardiomediastinal silhouette is within normal limits for size. The osseous structures are unremarkable. IMPRESSION: 1. Diffuse bilateral reticulonodular interstitial opacities may reflect interstitial edema or pneumonia. Overall, no significant interval change. 2. Tubes and lines, as described above. RPTAT: HH .Shabnam Espinoza MD, MD Date Time Electronically viewed and signed by .hSabnam Espinoza MD, MD on 07/01/2016 06 :06 .G/ CC: ELIZABETH STERN [facility], [facility] CHRISTINA JOSEPH Jul 01, 2016 08:52
[2016-07-01 09:28] LABS: CHOL/HDL RATIO 3.9 RATIO
--- NOTE | 2016-07-01 09:31 | RADRPT ---
Vent Rate: 73 bpm RR Interval: 0 msec ME Interval: 158 msec QRS Duration: 112 msec QT Interval: 402 msec QTC Interval: 442 msec P-R-T [place]: 41 - 9 - -54 degrees Normal sinus rhythm Nonspecific ST and T wave abnormality Abnormal ECG Electronically Signed By: Owen Bowie [id number]
--- NOTE | 2016-07-01 09:33 | RADRPT ---
Vent Rate: 132 bpm RR Interval: 0 msec OR Interval: 124 msec QRS Duration: 108 msec QT Interval: 340 msec QTC Interval: 503 msec P-R-T [place]: 0 - 71 - 0 degrees Sinus tachycardia Marked ST abnormality, possible inferior subendocardial injury Marked ST abnormality, possible anterior subendocardial injury Abnormal ECG Electronically Signed By: Owen Bowie [id number]
--- NOTE | 2016-07-01 09:35 | RADRPT ---
Vent Rate: 89 bpm RR Interval: 0 msec [place] Interval: 154 msec QRS Duration: 90 msec QT Interval: 498 msec QTC Interval: 605 msec P-R-T [place]: 62 - 67 - -79 degrees Normal sinus rhythm Cannot rule out Inferior infarct , age undetermined ST amp; T wave abnormality, consider lateral ischemia Prolonged QT Abnormal ECG Electronically Signed By: Owen Bowie [id number]
[2016-07-01] MEDS: FUROSEMIDE 40 MG INJ IV SCH (09:54)
[2016-07-01] MEDS: ACETAMINOPHEN 650 MG SUPP PR PRN (09:54)
[2016-07-01] MEDS ORDERED: POTASSIUM PHOSPHATE 30 MM in SOD CHLORIDE 0.9% 250 ML IVPB ONE (10:00)
[2016-07-01] MEDS: LORAZEPAM 2 MG INJ IV PRN ×3 (10:03→18:43)
--- NOTE | 2016-07-01 10:26 | CONS ---
Date/Time of Note Date/Time of Note DATE: 07/01/16 TIME: 10:15 Assessment/Plan Assessment/Plan Chief Complaint/Hosp Course IMPRESSION: 1. Positive troponin, consistent with a non-ST elevation myocardial infarction. -significant increase in troponin overnight to 40 in setting of severe hypoxia and tachycardia to 140's 2. Status post cardiac arrest. 3. Cardiomyopathy, with a severely depressed left ventricular ejection fraction of approximately 15% to 20% by echo on this admission. 4. Respiratory failure. Status post intubation.-low o2 sats to 50's overnight currently improved 5. Ventricular fibrillation arrest, witnessed, status post defibrillator x1. 6. Encephalopathy. 7. Leukocytosis. 8. Anemia. 9. Hypotension.-on dobutamine and low dose levo 10.Fevers Recc: -Tele -Continue dobutamine and wean levo as tolerated only-slow changes on pressors/ inotropes -Continue asa -Continue lasix diuresis with possible need to increase -Follow for any recurrent bleeding and resume heparin if stable -Transition to PO amio as possible -Continue abx's and f/u cx data Problems: Consultation Date/Type/Reason Admit Date/Time Jun 28, 2016 at 20:48 Initial Consult Date 06/29/16 Type of Consultation: Pulmonary Reason for Consultation Cardiac arrest Referring Provider: CHRISTINA JOSEPH Exam/Review of Systems Vital Signs Vitals Vital Signs Date Time Temp Pulse Resp B/P Pulse Ox O2 Delivery O2 Flow Rate FiO2 07/01/16 07:48 84 24 100 80 07/01/16 07:00 100/63 Mechanical Ventilator 07/01/16 06:00 100.8 Intake and Output 06/30/16 06/30/16 07/01/16 15:00 23:00 07:00 Intake Total 120 ml 505.772 ml 1085.799 ml Output Total 382 ml 918 ml 1317 ml Balance -262 ml -412.228 ml -231.201 ml Exam Review of Systems: CONSTITUTIONAL: No fevers, chills. PULMONARY: No sob CARDIOVASCULAR: No chest pain/palpitations GASTROINTESTINAL: No nausea/vomiting. GENITOURINARY: No hematuria/dysuria. MUSCULOSKELETAL: No myagias/arthalgias. PSYCHIATRIC: The patient denies depression. NEUROLOGIC: No weakness Constitutional: alert Psych: no complaints Head: normocephalic ENMT: mucosa pink and moist Neck: jvd, supple Respiratory: diminished breath sounds Cardiovascular: regular rate and rhythm Gastrointestinal: non-tender, soft Musculoskeletal: muscle tone Extremities: other (trace edema) Results Result Diagram: 07/01/16 0650 07/01/16 0650 Results 24 hrs Laboratory Tests Test 06/30/16 12:12 06/30/16 14:00 06/30/16 14:40 06/30/16 16:00 Bedside Glucose 116 Blood Gas Specimen Source Blood arterial Blood arterial Arterial Blood Date Drawn 06/30/2016 2:10:51 PM 06/30/2016 4:00:16 PM Arterial Blood pH (Temp corrected) 7.418 7.228 *L Arterial Blood pCO2 (Temp correct) 32.7 L 40.1 Arterial Blood pO2 (Temp corrected) 65.5 L 33.8 *L Arterial Blood HCO3 20.6 L 16.3 L Arterial Blood Base Excess -3.0 -10.6 L Arterial Blood Oxygen Saturation 93.3 L 57.5 L Christ Test ACCEPTAB N/A Arterial Blood Gas Puncture Site Right Radial Right Brachial Arterial Blood Carboxyhemoglobin 0.3 0.3 Arterial Blood Methemoglobin 0.3 0.1 Blood Gas A-a O2 Differential 182.1 H 639.1 H Oxyhemoglobin Percent 92.7 L 57.3 L Total Hemoglobin 12.7 14.1 Blood Gas Temperature 37.0 37.0 Blood Gas Actual Respiration Rate 22 22 Blood Gas Modality VENT - CPAP VENT - AC FiO2 40.0 100.0 Blood Gas Low PEEP Setting 5.0 10.0 Blood Gas Pressure Support 10 Blood Gas Notified Lluvia JAMES Blood Gas Notified Time 06/30/2016 2:16:52 PM 06/30/2016 4:20:18 PM Activated Partial Thromboplast Time 62.6 H Blood Gas Respiration Rate 22.0 Blood Gas Tidal Volume 500.0 Blood Gas Critical Value Read Back DR. OLIVEROS Test 06/30/16 16:05 06/30/16 17:55 06/30/16 20:01 06/30/16 22:30 Sodium Level 140 Potassium Level 3.6 Chloride Level 106 Carbon Dioxide Level 20 L Anion Gap 18 #H Blood Urea Nitrogen 9 Creatinine 1.03 Glucose Level 205 Calcium Level 7.5 L Troponin I 1.490 *H Bedside Glucose 125 Blood Gas Specimen Source Blood arterial Blood arterial Arterial Blood Date Drawn 06/30/2016 8:00:32 PM 06/30/2016 10:15:47 PM Arterial Blood pH (Temp corrected) 7.359 7.469 H Arterial Blood pCO2 (Temp correct) 35.0 26.7 L Arterial Blood pO2 (Temp corrected) 35.9 *L 47.5 *L Arterial Blood HCO3 19.3 L 19.0 L Arterial Blood Base Excess -5.3 L -3.2 L Arterial Blood Oxygen Saturation 68.9 L 86.5 L Christ Test ACCEPTAB ACCEPTAB Arterial Blood Gas Puncture Site Left Radial Right Radial Arterial Blood Carboxyhemoglobin 0.3 0.3 Arterial Blood Methemoglobin 0.3 0.3 Blood Gas A-a O2 Differential 642.1 H 638.8 H Oxyhemoglobin Percent 68.5 L 86.0 L Total Hemoglobin 14.6 13.7 Blood Gas Temperature 37.0 37.0 Blood Gas Respiration Rate 22.0 22.0 Blood Gas Actual Respiration Rate 28 22 Blood Gas Modality VENT - AC VENT - PC FiO2 100.0 100.0 Blood Gas Tidal Volume 550.0 Blood Gas Low PEEP Setting 14.0 12.0 Blood Gas Critical Value Read Back JAIME SANDOVAL RN Blood Gas Notified Whom ARASELI MARX Blood Gas Notified Time 06/30/2016 8:13:19 PM 06/30/2016 10:38:13 PM Blood Gas High PEEP Setting 32.0 Test 06/30/16 23:47 07/01/16 01:15 07/01/16 02:00 07/01/16 05:00 Bedside Glucose 131 Blood Gas Specimen Source Blood arterial Blood arterial Arterial Blood Date Drawn 07/01/2016 1:00:44 AM 07/01/2016 5:34:02 AM Arterial Blood pH (Temp corrected) 7.534 H 7.550 H Arterial Blood pCO2 (Temp correct) 21.9 L 24.6 L Arterial Blood pO2 (Temp corrected) 133.3 H 90.2 Arterial Blood HCO3 18.1 L 21.0 L Arterial Blood Base Excess -2.6 0 Arterial Blood Oxygen Saturation 98.3 H 97.3 Christ Test ACCEPTAB ACCEPTAB Arterial Blood Gas Puncture Site Right Radial Right Radial Arterial Blood Carboxyhemoglobin 0.3 0.3 Arterial Blood Methemoglobin 0.4 0.3 Blood Gas A-a O2 Differential 557.8 H 454.4 H Oxyhemoglobin Percent 97.6 96.7 Total Hemoglobin 13.0 12.4 Blood Gas Temperature 37.0 37.0 Blood Gas Respiration Rate 22.0 22.0 Blood Gas Actual Respiration Rate 22 22 Blood Gas Modality VENT - PC VENT - PC FiO2 100.0 80.0 Blood Gas High PEEP Setting 32.0 32.0 Blood Gas Low PEEP Setting 15.0 15.0 Blood Gas Notified Whom ARASELI JANSEN COLLET DRILLER Blood Gas Notified Time 07/01/2016 1:25:00 AM 07/01/2016 5:46:31 AM Potassium Level 2.8 *L Magnesium Level 1.6 L Blood Gas Inspiratory Time 0.80 Blood Gas Mean Airway Pressure 25 Blood Gas Inspiratory Pressure 48.0 Test 07/01/16 05:40 07/01/16 06:50 Bedside Glucose 143 White Blood Count 18.3 H Red Blood Count 3.71 L Hemoglobin 11.3 L Hematocrit 33.0 L Mean Corpuscular Volume 88.9 Mean Corpuscular Hemoglobin 30.5 Mean Corpuscular Hemoglobin Concent 34.2 Red Cell Distribution Width 13.2 Platelet Count 148 # Mean Platelet Volume 9.8 Neutrophils % 85.0 H Lymphocytes % 8.9 L Monocytes % 5.0 Eosinophils % 0.0 Basophils % 0.2 Nucleated Red Blood Cells % 0.0 Neutrophils # 15.6 H Lymphocytes # 1.6 Monocytes # 0.9 Eosinophils # 0.0 Basophils # 0.0 Nucleated Red Blood Cells # 0.0 Sodium Level 136 Potassium Level 3.3 L Chloride Level 109 Carbon Dioxide Level 23 Anion Gap 7 #L Blood Urea Nitrogen 10 Creatinine 1.07 Glucose Level 125 # Calcium Level 7.3 L Phosphorus Level 1.3 #L Magnesium Level 2.0 Creatine Kinase 4173 H Creatine Kinase Index 2.1 Creatinine Kinase MB (Mass) 86.80 H Troponin I 40.900 *H Triglycerides Level 94 Cholesterol Level 150 LDL Cholesterol, Calculated 93 # HDL Cholesterol 38 # Cholesterol/HDL Ratio 3.9 Vancomycin Level Trough 17.2 Medications Medications Current Medications Fentanyl 25 mcg 25 mcg Q10M PRN IV SEDATION; Start 06/28/16 at 17:00 Midazolam HCl 50 ml @ 2 mls/hr ONCE IV Last administered on 07/01/16t 09:15; Admin Dose 10 MLS/HR; Start 06/28/16 at 17:00 Fentanyl (Sublimaze) 100 ml @ 2.5 mls/hr TITRATE IV Last administered on 01:08; Admin Dose 10 MLS/HR; Start 06/28/16 at 19:00 Famotidine 20 mg 20 mg Q12 IV Last administered on 07/01/16 08:33; Admin Dose 20 MG; Start 06/28/16 at 21:00 Piperacillin Sod/ Tazobactam Sod 100 ml @ 200 mls/hr Q6 IVPB Last administered on 07/01/16 05:34; Admin Dose 200 MLS/HR; Start 06/29/16 at 00:00 Heparin Sodium (Porcine) (Heparin 29876 Units/250 ml) 250 ml @ 0 mls/hr Q24H IV Last administered on 06/30/16 04:31; Admin Dose 8.5 MLS/HR; Start 06/29/16 at 08:30 Heparin Sodium (Porcine) (Heparin (1000 Units/ml)) 4,000 unit PRN PRN IV PENDING LAB VALUE; Start 06/29/16 at 08:30 Meperidine HCl (Demerol) 25 mg Q4H PRN IV shivering post hypothermia pro Last administered on 06/29/16 14:44; Admin Dose 25 MG; Start 06/29/16 at 14:30 Dicyclomine HCl (Bentyl) 20 mg Q6H PRN NGT Hiccups Last administered on 09:54; Admin Dose 20 MG; Start 06/30/16 at 06:30 Insulin Aspart (Novolog Insulin Pen) NOVOLOG *MILD* ALGORI... Q6 SC Last administered on 07/01/16 05:58; Admin Dose 1 UNIT; Start 06/30/16 at 12:00 Miscellaneous Information 1 ea NOTE XX ; Start 06/30/16 at 09:30 Glucose (Glutose) 15 gm Q15M PRN PO DECREASED GLUCOSE; Start 06/30/16 at 09:30 Glucose (Glutose) 22.5 gm Q15M PRN PO DECREASED GLUCOSE; Start 06/30/16 at 09: 30 Dextrose (D50w Syringe) 25 ml Q15M PRN IV DECREASED GLUCOSE; Start 06/30/16 at 09:30 Dextrose (D50w Syringe) 50 ml Q15M PRN IV DECREASED GLUCOSE; Start 06/30/16 at 09:30 Glucagon (Glucagen) 1 mg Q15M PRN IM DECREASED GLUCOSE; Start 06/30/16 at 09:30 Glucose (Glutose) 15 gm Q15M PRN BUCCAL DECREASED GLUCOSE; Start 06/30/16 at 09 :30 Aspirin (Halfprin) 81 mg DAILY PO Last administered on 07/01/16 08:33; Admin Dose 81 MG; Start 06/30/16 at 09:30 Atorvastatin Calcium (Lipitor) 80 mg DAILY PO Last administered on 07/01/16 08 :33; Admin Dose 80 MG; Start 06/30/16 at 09:30 Acetaminophen 650 mg 650 mg Q6 PRN NGT PAIN AND OR ELEVATED TEMP Last administered on 06/30/16 15:34; Admin Dose 650 MG; Start 06/30/16 at 11:00 Dobutamine HCl/ Dextrose 250 ml @ 11.25 mls/ hr TITRATE IV Last administered on 06/30/16 16:43; Admin Dose 11.25 MLS/HR; Start 06/30/16 at 16:30 Amiodarone HCl/ Dextrose (Cordarone Iv/ D5W) 500 ml @ 0 mls/hr Q0M IV Last administered on 06/30/16 17:21; Admin Dose 16.7 MLS/HR; Start 06/30/16 at 17:00 Lorazepam 2 mg 2 mg Q1HWA PRN IV AGITATION Last administered on 07/01/16 10:03 ; Admin Dose 2 MG; Start 06/30/16 at 17:30 Propofol (Diprivan) 100 ml @ 2.25 mls/hr Q12H IV ; Start 06/30/16 at 17:30 Acetaminophen 1000 mg 1,000 mg Q6H PRN [place] Fever Last administered on 07/01/16 09:54; Admin Dose 1,000 MG; Start 06/30/16 at 21:30 Potassium Phosphate 30 mm/ Sodium Chloride 260 ml @ 43.333 mls/ hr ONCE ONCE IVPB ; Start 07/01/16 at 10:00; Stop 07/01/16 at 15:59 Magnesium Sulfate/ Dextrose (Magnesium Sulfate 1 Gm/D5W) 100 ml @ 100 mls/hr ONCE ONCE IVPB ; Start 07/01/16 at 10:00; Stop 07/01/16 at 10:59 Furosemide 40 mg 40 mg DAILY IV Last administered on 07/01/16t 09:54; Admin Dose 40 MG; Start 07/01/16 at 10:00 Vancomycin HCl/ Sodium Chloride (Vancocin/NS) 250 ml @ 83.333 mls/ hr Q12H IVPB ; Start 07/01/16 at 21:00 ELIGIO TYSON Jul 01, 2016 10:26
[2016-07-01] MEDS: DOBUTamine/D5W 1 MG/ML DRIP 250 ML IV SCH ×2 (10:31→23:48)
--- NOTE | 2016-07-01 10:31 | CONS ---
Date/Time of Note Date/Time of Note DATE: 07/01/16 TIME: 10:28 Consult Date/Type/Reason Admit Date/Time Jun 28, 2016 at 20:48 Initial Consult Date 06/29/16 Type of Consultation: Pulmonary, ICU Ordering Provider: CHRISTINA JOSEPH Subjective Significant deterioration towards the end of CPAP weaning trial yesterday Patient had mild hypoxemia with evidence of acute pulmonary edema with prolonged hypoxemia which improved with switching to pressure control ventilation. Currently he remains intubated sedated on vasopressor and inotrophic support. In addition patient is febrile Objective Vital Signs Date Time Temp Pulse Resp B/P Pulse Ox O2 Delivery O2 Flow Rate FiO2 07/01/16 09:05 89 22 99 80 07/01/16 07:00 100/63 Mechanical Ventilator 07/01/16 06:00 100.8 Intake and Output 06/30/16 06/30/16 07/01/16 15:00 23:00 07:00 Intake Total 120 ml 505.772 ml 1085.799 ml Output Total 382 ml 918 ml 1317 ml Balance -262 ml -412.228 ml -231.201 ml Exam PHYSICAL EXAMINATION GENERAL: Young gentleman intubated on mechanical ventilation appears comfortable at rest VITAL SIGNS: see below. HEENT: Pupils equal, round, and reactive to light. CARDIAC: S1, S2, tachycardia. CHEST: Diminished air entry bilaterally. ABDOMEN: Mildly distended. Bowel sounds present no guarding or rebound. EXTREMITIES: No cyanosis, clubbing or edema. NEUROLOGIC: Unable to assess Results/Medications Result Diagram: 07/01/16 0650 07/01/16 0650 Results 24 hrs Laboratory Tests Test 06/30/16 12:12 06/30/16 14:00 06/30/16 14:40 06/30/16 16:00 Bedside Glucose 116 Blood Gas Specimen Source Blood arterial Blood arterial Arterial Blood Date Drawn 06/30/2016 2:10:51 PM 06/30/2016 4:00:16 PM Arterial Blood pH (Temp corrected) 7.418 7.228 *L Arterial Blood pCO2 (Temp correct) 32.7 L 40.1 Arterial Blood pO2 (Temp corrected) 65.5 L 33.8 *L Arterial Blood HCO3 20.6 L 16.3 L Arterial Blood Base Excess -3.0 -10.6 L Arterial Blood Oxygen Saturation 93.3 L 57.5 L Christ Test ACCEPTAB N/A Arterial Blood Gas Puncture Site Right Radial Right Brachial Arterial Blood Carboxyhemoglobin 0.3 0.3 Arterial Blood Methemoglobin 0.3 0.1 Blood Gas A-a O2 Differential 182.1 H 639.1 H Oxyhemoglobin Percent 92.7 L 57.3 L Total Hemoglobin 12.7 14.1 Blood Gas Temperature 37.0 37.0 Blood Gas Actual Respiration Rate 22 22 Blood Gas Modality VENT - CPAP VENT - AC FiO2 40.0 100.0 Blood Gas Low PEEP Setting 5.0 10.0 Blood Gas Pressure Support 10 Blood Gas Notified Whom Ni JAMES Blood Gas Notified Time 06/30/2016 2:16:52 PM 06/30/2016 4:20:18 PM Activated Partial Thromboplast Time 62.6 H Blood Gas Respiration Rate 22.0 Blood Gas Tidal Volume 500.0 Blood Gas Critical Value Read Back DR. OLIVEROS Test 06/30/16 16:05 06/30/16 17:55 06/30/16 20:01 06/30/16 22:30 Sodium Level 140 Potassium Level 3.6 Chloride Level 106 Carbon Dioxide Level 20 L Anion Gap 18 #H Blood Urea Nitrogen 9 Creatinine 1.03 Glucose Level 205 Calcium Level 7.5 L Troponin I 1.490 *H Bedside Glucose 125 Blood Gas Specimen Source Blood arterial Blood arterial Arterial Blood Date Drawn 06/30/2016 8:00:32 PM 06/30/2016 10:15:47 PM Arterial Blood pH (Temp corrected) 7.359 7.469 H Arterial Blood pCO2 (Temp correct) 35.0 26.7 L Arterial Blood pO2 (Temp corrected) 35.9 *L 47.5 *L Arterial Blood HCO3 19.3 L 19.0 L Arterial Blood Base Excess -5.3 L -3.2 L Arterial Blood Oxygen Saturation 68.9 L 86.5 L Christ Test ACCEPTAB ACCEPTAB Arterial Blood Gas Puncture Site Left Radial Right Radial Arterial Blood Carboxyhemoglobin 0.3 0.3 Arterial Blood Methemoglobin 0.3 0.3 Blood Gas A-a O2 Differential 642.1 H 638.8 H Oxyhemoglobin Percent 68.5 L 86.0 L Total Hemoglobin 14.6 13.7 Blood Gas Temperature 37.0 37.0 Blood Gas Respiration Rate 22.0 22.0 Blood Gas Actual Respiration Rate 28 22 Blood Gas Modality VENT - AC VENT - PC FiO2 100.0 100.0 Blood Gas Tidal Volume 550.0 Blood Gas Low PEEP Setting 14.0 12.0 Blood Gas Critical Value Read Back JAIME SANDOVAL RN Blood Gas Notified Whom ARASELI MARX Blood Gas Notified Time 06/30/2016 8:13:19 PM 06/30/2016 10:38:13 PM Blood Gas High PEEP Setting 32.0 Test 06/30/16 23:47 07/01/16 01:15 07/01/16 02:00 07/01/16 05:00 Bedside Glucose 131 Blood Gas Specimen Source Blood arterial Blood arterial Arterial Blood Date Drawn 07/01/2016 1:00:44 AM 07/01/2016 5:34:02 AM Arterial Blood pH (Temp corrected) 7.534 H 7.550 H Arterial Blood pCO2 (Temp correct) 21.9 L 24.6 L Arterial Blood pO2 (Temp corrected) 133.3 H 90.2 Arterial Blood HCO3 18.1 L 21.0 L Arterial Blood Base Excess -2.6 0 Arterial Blood Oxygen Saturation 98.3 H 97.3 Christ Test ACCEPTAB ACCEPTAB Arterial Blood Gas Puncture Site Right Radial Right Radial Arterial Blood Carboxyhemoglobin 0.3 0.3 Arterial Blood Methemoglobin 0.4 0.3 Blood Gas A-a O2 Differential 557.8 H 454.4 H Oxyhemoglobin Percent 97.6 96.7 Total Hemoglobin 13.0 12.4 Blood Gas Temperature 37.0 37.0 Blood Gas Respiration Rate 22.0 22.0 Blood Gas Actual Respiration Rate 22 22 Blood Gas Modality VENT - PC VENT - PC FiO2 100.0 80.0 Blood Gas High PEEP Setting 32.0 32.0 Blood Gas Low PEEP Setting 15.0 15.0 Blood Gas Notified Whom ARASELI JANESN RCP Blood Gas Notified Time 07/01/2016 1:25:00 AM 07/01/2016 5:46:31 AM Potassium Level 2.8 *L Magnesium Level 1.6 L Blood Gas Inspiratory Time 0.80 Blood Gas Mean Airway Pressure 25 Blood Gas Inspiratory Pressure 48.0 Test 07/01/16 05:40 07/01/16 06:50 Bedside Glucose 143 White Blood Count 18.3 H Red Blood Count 3.71 L Hemoglobin 11.3 L Hematocrit 33.0 L Mean Corpuscular Volume 88.9 Mean Corpuscular Hemoglobin 30.5 Mean Corpuscular Hemoglobin Concent 34.2 Red Cell Distribution Width 13.2 Platelet Count 148 # Mean Platelet Volume 9.8 Neutrophils % 85.0 H Lymphocytes % 8.9 L Monocytes % 5.0 Eosinophils % 0.0 Basophils % 0.2 Nucleated Red Blood Cells % 0.0 Neutrophils # 15.6 H Lymphocytes # 1.6 Monocytes # 0.9 Eosinophils # 0.0 Basophils # 0.0 Nucleated Red Blood Cells # 0.0 Sodium Level 136 Potassium Level 3.3 L Chloride Level 109 Carbon Dioxide Level 23 Anion Gap 7 #L Blood Urea Nitrogen 10 Creatinine 1.07 Glucose Level 125 # Calcium Level 7.3 L Phosphorus Level 1.3 #L Magnesium Level 2.0 Creatine Kinase 4173 H Creatine Kinase Index 2.1 Creatinine Kinase MB (Mass) 86.80 H Troponin I 40.900 *H Triglycerides Level 94 Cholesterol Level 150 LDL Cholesterol, Calculated 93 # HDL Cholesterol 38 # Cholesterol/HDL Ratio 3.9 Vancomycin Level Trough 17.2 Medications Current Medications Fentanyl 25 mcg 25 mcg Q10M PRN IV SEDATION; Start 06/28/16 at 17:00 Midazolam HCl 50 ml @ 2 mls/hr ONCE IV Last administered on 07/01/16 09:15; Admin Dose 10 MLS/HR; Start 06/28/16 at 17:00 Fentanyl (Sublimaze) 100 ml @ 2.5 mls/hr TITRATE IV Last administered on 01:08; Admin Dose 10 MLS/HR; Start 06/28/16 at 19:00 Famotidine 20 mg 20 mg Q12 IV Last administered on 07/01/16 08:33; Admin Dose 20 MG; Start 06/28/16 at 21:00 Piperacillin Sod/ Tazobactam Sod 100 ml @ 200 mls/hr Q6 IVPB Last administered on 07/01/16 05:34; Admin Dose 200 MLS/HR; Start 06/29/16 at 00:00 Heparin Sodium (Porcine) (Heparin 50103 Units/250 ml) 250 ml @ 0 mls/hr Q24H IV Last administered on 06/30/16 04:31; Admin Dose 8.5 MLS/HR; Start 06/29/16 at 08:30 Heparin Sodium (Porcine) (Heparin (1000 Units/ml)) 4,000 unit PRN PRN IV PENDING LAB VALUE; Start 06/29/16 at 08:30 Meperidine HCl (Demerol) 25 mg Q4H PRN IV shivering post hypothermia pro Last administered on 06/29/16 14:44; Admin Dose 25 MG; Start 06/29/16 at 14:30 Dicyclomine HCl (Bentyl) 20 mg Q6H PRN NGT Hiccups Last administered on 09:54; Admin Dose 20 MG; Start 06/30/16 at 06:30 Insulin Aspart (Novolog Insulin Pen) NOVOLOG *MILD* ALGORI... Q6 SC Last administered on 07/01/16 05:58; Admin Dose 1 UNIT; Start 06/30/16 at 12:00 Miscellaneous Information 1 ea NOTE XX ; Start 06/30/16 at 09:30 Glucose (Glutose) 15 gm Q15M PRN PO DECREASED GLUCOSE; Start 06/30/16 at 09:30 Glucose (Glutose) 22.5 gm Q15M PRN PO DECREASED GLUCOSE; Start 06/30/16 at 09: 30 Dextrose (D50w Syringe) 25 ml Q15M PRN IV DECREASED GLUCOSE; Start 06/30/16 at 09:30 Dextrose (D50w Syringe) 50 ml Q15M PRN IV DECREASED GLUCOSE; Start 06/30/16 at 09:30 Glucagon (Glucagen) 1 mg Q15M PRN IM DECREASED GLUCOSE; Start 06/30/16 at 09:30 Glucose (Glutose) 15 gm Q15M PRN BUCCAL DECREASED GLUCOSE; Start 06/30/16 at 09 :30 Aspirin (Halfprin) 81 mg DAILY PO Last administered on 07/01/16 08:33; Admin Dose 81 MG; Start 06/30/16 at 09:30 Atorvastatin Calcium (Lipitor) 80 mg DAILY PO Last administered on 07/01/16 08 :33; Admin Dose 80 MG; Start 06/30/16 at 09:30 Acetaminophen 650 mg 650 mg Q6 PRN NGT PAIN AND OR ELEVATED TEMP Last administered on 06/30/16 15:34; Admin Dose 650 MG; Start 06/30/16 at 11:00 Dobutamine HCl/ Dextrose 250 ml @ 11.25 mls/ hr TITRATE IV Last administered on 06/30/16 16:43; Admin Dose 11.25 MLS/HR; Start 06/30/16 at 16:30 Amiodarone HCl/ Dextrose (Cordarone Iv/ D5W) 500 ml @ 0 mls/hr Q0M IV Last administered on 06/30/16 17:21; Admin Dose 16.7 MLS/HR; Start 06/30/16 at 17:00 Lorazepam 2 mg 2 mg Q1HWA PRN IV AGITATION Last administered on 07/01/16 10:03 ; Admin Dose 2 MG; Start 06/30/16 at 17:30 Propofol (Diprivan) 100 ml @ 2.25 mls/hr Q12H IV ; Start 06/30/16 at 17:30 Acetaminophen 1000 mg 1,000 mg Q6H PRN [place] Fever Last administered on 07/01/16 09:54; Admin Dose 1,000 MG; Start 06/30/16 at 21:30 Potassium Phosphate 30 mm/ Sodium Chloride 260 ml @ 43.333 mls/ hr ONCE ONCE IVPB ; Start 07/01/16 at 10:00; Stop 07/01/16 at 15:59 Magnesium Sulfate/ Dextrose (Magnesium Sulfate 1 Gm/D5W) 100 ml @ 100 mls/hr ONCE ONCE IVPB ; Start 07/01/16 at 10:00; Stop 07/01/16 at 10:59 Furosemide 40 mg 40 mg DAILY IV Last administered on 07/01/16 09:54; Admin Dose 40 MG; Start 07/01/16 at 10:00 Vancomycin HCl/ Sodium Chloride (Vancocin/NS) 250 ml @ 83.333 mls/ hr Q12H IVPB ; Start 07/01/16 at 21:00 Assessment/Plan Chief Complaint/Hosp Course Assessment 1. Cardiopulmonary arrest. Ventricular arrhythmia following spontaneous return of circulation. Ejection fraction 15% cardiogenic shock with elevated troponins 2. Hypoxemic respiratory failure evidence of pulmonary edema on chest x-ray 3. Possible aspiration pneumonia 4. Fevers concerning for underlying sepsis Plan 1. Continue cardiology recommendations continue inotropic support, possible cardiac catheterization next week if patient remained stable 2. Diuresis with tolerated 3. Mechanical ventilation no weaning trials 4. Broad-spectrum antibiotics for underlying sepsis 5. DVT and GI prophylaxis Disposition Continue ICU Discussed with primary care team cardiology and nursing staff Critical care time 40 minutes Problems: ELIZABETH STERN MD, [facility] Jul 01, 2016 10:31
[2016-07-01] MEDS: AMIODARONE 200 MG TAB PO SCH ×2 (10:56→21:28)
[2016-07-01 15:07] LABS: CK-MB 37.5 ng/ml (0.0-2.4); TROPONIN-I 34.8 ng/ml (0.00-0.12)
[2016-07-01] MEDS ORDERED: ALTEPLASE (CATHFLO) 2 MG INJ CATHETER ONE (18:30)
[2016-07-01 18:37] LABS: CK-MB 21.4 ng/ml (0.0-2.4); TROPONIN-I 27.1 ng/ml (0.00-0.12)
[2016-07-01 21:43] LABS: AADO2 Arterial 435.7 mmHg (7.0-24.0); Allen Test ACCEPTAB; Arterial Base Excess -0.6 mmol/L (-3.0-3); Arterial COHb 0.3 % (0.0-3.0); Arterial Fraction of Oxyhgb 97.3 % (93.0-99.0); Arterial HCO3 20.6 mmol/L (22.0-26.0); Arterial MetHb 0.4 % (0.0-1.5); Arterial Total Hemglobin 13.2 g/dl (12.0-18.0); MODE VENT - PC
[2016-07-02] VITALS (105 sets, daily range): BP systolic 93–132; BP diastolic 58–86; PULSE 78–114; RESP 11–30
[2016-07-02] MEDS: ACETAMINOPHEN 650MG/20.3ML CUP NGT PRN ×2 (00:06→20:48)
[2016-07-02] MEDS: MIDAZOLAM (DRIP) 50 mg/50 mL 50 ML IV SCH ×5 (01:36→23:02)
[2016-07-02] MEDS: ACETAMINOPHEN 650 MG SUPP PR PRN (04:03)
[2016-07-02 05:24] LABS: ADD SCAN DIFF NO
[2016-07-02] MEDS: PROPOFOL 100 ML IV SCH ×2 (05:24→16:43)
[2016-07-02] MEDS: PIPER-TAZO 3.375 GM IV (PMX) 100 ML IVPB SCH (05:41)
[2016-07-02] MEDS: INSULIN ASPART [NOVOLOG] 3 ML PEN SC SCH ×3 (05:41→17:56)
[2016-07-02 06:14] LABS: POTASSIUM 3.1 mmol/L (3.5-5.1)
[2016-07-02 06:17] LABS: CREATININE 1.01 mg/dl (0.61-1.24); PHOSPHORUS 2.4 mg/dl (2.5-4.9)
[2016-07-02 06:18] LABS: BASOPHILS % 0.2 % (0.0-2.0); CALCIUM 7.5 mg/dl (8.4-10.2); EOSINOPHILS % 0.1 % (0.0-7.0); HEMATOCRIT 30.9 % (42.0-52.0); HEMOGLOBIN 10.4 g/dl (14.0-18.0); LYMPHOCYTES # 1.5 10^3/ul (0.8-2.9); MAGNESIUM 2.1 mg/dl (1.7-2.5); MEAN CORPUSCULAR HEMOGLOBIN 31.1 pg (29.0-33.0); MEAN CORPUSCULAR HGB CONC 33.7 g/dl (32.0-37.0); MEAN CORPUSCULAR VOLUME 92.5 fl (82.0-101.0); MEAN PLATELET VOLUME 10.4 fl (7.4-10.4); MONOCYTE # 1.3 10^3/ul (0.3-0.9); MONOCYTES % 6.9 % (0.0-11.0); NEUTROPHIL # 16.2 10^3/ul (1.6-7.5); NEUTROPHILS % 84.2 % (39.0-77.0); PLATELET COUNT 128 10^3/UL (140-415); RED BLOOD COUNT 3.34 10^6/ul (4.70-6.10); RED CELL DISTRIBUTION WIDTH 13.6 % (11.5-14.5); WHITE BLOOD COUNT 19.2 10^3/ul (4.8-10.8)
[2016-07-02 06:54] LABS: T3 UPTAKE 43.1 % (23.5-40.5)
[2016-07-02 07:08] LABS: THYROID STIMULATING HORMONE 0.695 MIU/L (0.465-4.680)
[2016-07-02] MEDS: FENTAnyl (DRIP) 1000 mcg/100mL 100 ML IV SCH ×2 (07:45→17:59)
[2016-07-02] MEDS: HEPARIN 25000 UNITS/D5W 250 ML IV SCH (07:51)
[2016-07-02] MEDS: VANCOMYCIN 1.5 GM in SOD CHLORIDE 0.9% 250 ML IVPB SCH ×2 (09:07→21:16)
[2016-07-02] MEDS: AMIODARONE 200 MG TAB PO SCH ×2 (09:07→21:16)
[2016-07-02] MEDS: ASPIRIN 81 MG TAB NGT SCH (09:07)
[2016-07-02] MEDS: FUROSEMIDE 40 MG INJ IV SCH (09:07)
[2016-07-02] MEDS: ATORVASTATIN 80 MG TAB PO SCH (09:07)
[2016-07-02] MEDS: FAMOTIDINE 20 MG INJ IV SCH ×2 (09:11→21:16)
--- NOTE | 2016-07-02 09:26 | PN ---
Date/Time of Note Date/Time of Note DATE: 07/02/16 TIME: 09:18 Assessment/Plan VTE Prophylaxis VTE Prophylaxis Intervention: heparin Lines/Catheters IV C[facility] Type [facility] Central Line Central line still needed: Yes Urinary Cath still in place: Yes Reason Cath still needed: other (indicate) Assessment/Plan Assessment/Plan IMPRESSION: 1. Status post ventricular fibrillation cardiac arrest with ROSC. * s/p hypothermia protocol 2. NSTEMI 3. Vent dependent respiratory failure secondary to cardiac arrest. 4. Shock likely septic with a cardiogenic component : ?worsening 5. Severe systolic dysfunction with EF of 15 to 20%. 6. Pulmonary edema. 7. Bilateral pneumonia, possibly from aspiration. 8. Bacteremia per Nursing report 9. Chronic Tobacco user 10. Acute kidney injury, resolved. 11. Hyperglycemia : A!C 5.7: resolved 12. Rhabdomyolysis: improving PLAN: * Continue ventilator support and pressor support and wean off as tolerated. * Patient continues to spike fevers / WBC climbing : ID consult / repeat gomez cultures / r/o DVT * Continue current medical management including Pepcid / Heparin / aspirin / antibiotics / diuresis * Will also start low dose IVF in view of very high CK levels. * Replace electrolytes and closely monitor * Await official culture reports and sensitivity * Further workup and management per clinical course. Spoke with family at bedside. CC >35mins Subjective 24 Hr Interval Summary Free Text/Dictation Patient seen and examined. Intubated and sedated for comfort, but no pressor support. Subjective hx not possible: pt non-verbal, pt critical status Exam/Review of Systems Vital Signs Vitals Vital Signs Date Time Temp Pulse Resp B/P Pulse Ox O2 Delivery O2 Flow Rate FiO2 07/02/16 06:45 83 22 121/77 97 Mechanical Ventilator 07/02/16 05:20 100 07/02/16 04:00 101.0 Intake and Output 07/01/16 07/01/16 07/02/16 15:00 23:00 07:00 Intake Total 180 ml 458.05 ml 968.27 ml Output Total 825 ml 295 ml 280 ml Balance -645 ml 163.05 ml 688.27 ml Exam GENERAL: The patient intubated, and on sedation; restrained HEENT: No obvious head deformity. His pupils are reactive to light. CARDIOVASCULAR: systolic murmur LUNGS: He has coarse breath sounds bilaterally, decreased more on the L. ABDOMEN: Soft. No grimaces noted on palpation. There was positive bowel sounds and was not distended., some scrotal edema noted EXTREMITIES: No significant extremity edema. NEUROLOGIC: See above. Results Result Diagram: 07/02/16 0515 07/02/16 0515 Results 24 hrs Laboratory Tests Test 07/01/16 12:06 07/01/16 13:55 07/01/16 17:34 07/01/16 18:05 Bedside Glucose 110 99 Creatine Kinase 3062 H 2747 H Creatine Kinase Index 1.2 0.8 Creatinine Kinase MB (Mass) 37.50 H 21.40 H Troponin I 34.800 *H 27.100 *H Test 07/01/16 19:45 07/01/16 23:54 07/02/16 05:15 07/02/16 05:41 Blood Gas Specimen Source Blood arterial Arterial Blood Date Drawn 07/01/2016 9:30:00 PM Arterial Blood pH (Temp corrected) 7.531 H Arterial Blood pCO2 (Temp correct) 25.2 L Arterial Blood pO2 (Temp corrected) 108.2 H Arterial Blood HCO3 20.6 L Arterial Blood Base Excess -0.6 Arterial Blood Oxygen Saturation 98.0 Christ Test ACCEPTAB Arterial Blood Gas Puncture Site Left Radial Arterial Blood Carboxyhemoglobin 0.3 Arterial Blood Methemoglobin 0.4 Blood Gas A-a O2 Differential 435.7 H Oxyhemoglobin Percent 97.3 Total Hemoglobin 13.2 Blood Gas Temperature 37.0 Blood Gas Respiration Rate 22.0 Blood Gas Actual Respiration Rate 22 Blood Gas Modality VENT - PC FiO2 80.0 Blood Gas High PEEP Setting 28.0 Blood Gas Low PEEP Setting 12.0 Blood Gas Notified Whom MA Blood Gas Notified Time 07/01/2016 9:42:00 PM Bedside Glucose 106 108 White Blood Count 19.2 H Red Blood Count 3.34 L Hemoglobin 10.4 L Hematocrit 30.9 L Mean Corpuscular Volume 92.5 Mean Corpuscular Hemoglobin 31.1 Mean Corpuscular Hemoglobin Concent 33.7 Red Cell Distribution Width 13.6 Platelet Count 128 L Mean Platelet Volume 10.4 Neutrophils % 84.2 H Lymphocytes % 8.0 L Monocytes % 6.9 Eosinophils % 0.1 Basophils % 0.2 Nucleated Red Blood Cells % 0.0 Neutrophils # 16.2 H Lymphocytes # 1.5 Monocytes # 1.3 H Eosinophils # 0.0 Basophils # 0.0 Nucleated Red Blood Cells # 0.0 Sodium Level 139 Potassium Level 3.1 L Chloride Level 105 Carbon Dioxide Level 25 Anion Gap 12 Blood Urea Nitrogen 13 Creatinine 1.01 Glucose Level 119 Calcium Level 7.5 L Phosphorus Level 2.4 #L Magnesium Level 2.1 Thyroid Stimulating Hormone (TSH) 0.695 Free Thyroxine Index 1.81 Thyroxine (T4) 4.2 L Triiodothyronine (T3) Uptake 43.1 H Medications Medications Current Medications Fentanyl 25 mcg 25 mcg Q10M PRN IV SEDATION; Start 06/28/16 at 17:00 Midazolam HCl 50 ml @ 2 mls/hr ONCE IV Last administered on 07/02/16 07:45; Admin Dose 10 MLS/HR; Start 06/28/16 at 17:00 Fentanyl (Sublimaze) 100 ml @ 2.5 mls/hr TITRATE IV Last administered on 07:45; Admin Dose 10 MLS/HR; Start 06/28/16 at 19:00 Famotidine 20 mg 20 mg Q12 IV Last administered on 07/02/16 09:11; Admin Dose 20 MG; Start 06/28/16 at 21:00 Piperacillin Sod/ Tazobactam Sod 100 ml @ 200 mls/hr Q6 IVPB Last administered on 07/02/16 05:41; Admin Dose 200 MLS/HR; Start 06/29/16 at 00:00 Heparin Sodium (Porcine) (Heparin 21399 Units/250 ml) 250 ml @ 0 mls/hr Q24H IV Last administered on 06/30/16 04:31; Admin Dose 8.5 MLS/HR; Start 06/29/16 at 08:30 Heparin Sodium (Porcine) (Heparin (1000 Units/ml)) 4,000 unit PRN PRN IV PENDING LAB VALUE; Start 06/29/16 at 08:30 Meperidine HCl (Demerol) 25 mg Q4H PRN IV shivering post hypothermia pro Last administered on 06/29/16 14:44; Admin Dose 25 MG; Start 06/29/16 at 14:30 Dicyclomine HCl (Bentyl) 20 mg Q6H PRN NGT Hiccups Last administered on 09:54; Admin Dose 20 MG; Start 06/30/16 at 06:30 Insulin Aspart (Novolog Insulin Pen) NOVOLOG *MILD* ALGORI... Q6 SC Last administered on 07/01/16 05:58; Admin Dose 1 UNIT; Start 06/30/16 at 12:00 Miscellaneous Information 1 ea NOTE XX ; Start 06/30/16 at 09:30 Glucose (Glutose) 15 gm Q15M PRN PO DECREASED GLUCOSE; Start 06/30/16 at 09:30 Glucose (Glutose) 22.5 gm Q15M PRN PO DECREASED GLUCOSE; Start 06/30/16 at 09: 30 Dextrose (D50w Syringe) 25 ml Q15M PRN IV DECREASED GLUCOSE; Start 06/30/16 at 09:30 Dextrose (D50w Syringe) 50 ml Q15M PRN IV DECREASED GLUCOSE; Start 06/30/16 at 09:30 Glucagon (Glucagen) 1 mg Q15M PRN IM DECREASED GLUCOSE; Start 06/30/16 at 09:30 Glucose (Glutose) 15 gm Q15M PRN BUCCAL DECREASED GLUCOSE; Start 06/30/16 at 09 :30 Atorvastatin Calcium (Lipitor) 80 mg DAILY PO Last administered on 07/02/16 09 :07; Admin Dose 80 MG; Start 06/30/16 at 09:30 Acetaminophen 650 mg 650 mg Q6 PRN NGT PAIN AND OR ELEVATED TEMP Last administered on 07/02/16 00:06; Admin Dose 650 MG; Start 06/30/16 at 11:00 Dobutamine HCl/ Dextrose 250 ml @ 11.25 mls/ hr TITRATE IV Last administered on 07/01/16 23:48; Admin Dose 15.75 MLS/HR; Start 06/30/16 at 16:30 Lorazepam 2 mg 2 mg Q1HWA PRN IV AGITATION Last administered on 07/01/16 18:43 ; Admin Dose 2 MG; Start 06/30/16 at 17:30 Propofol (Diprivan) 100 ml @ 2.25 mls/hr Q12H IV ; Start 06/30/16 at 17:30 Acetaminophen (Tylenol Supp) 1,000 mg Q6H PRN [place] Fever Last administered on 04:03; Admin Dose 1,000 MG; Start 4/20/17 at 21:30 Furosemide 40 mg 40 mg DAILY IV Last administered on 07/02/16 09:07; Admin Dose 40 MG; Start 07/01/16 at 10:00 Vancomycin HCl/ Sodium Chloride (Vancocin/NS) 250 ml @ 83.333 mls/ hr Q12H IVPB Last administered on 07/02/16 09:07; Admin Dose 83.333 MLS/HR; Start at 21:00 Amiodarone HCl (Cordarone) 400 mg BID PO Last administered on 07/02/16 09:07; Admin Dose 400 MG; Start 07/01/16 at 11:00 Aspirin (Aspirin) 81 mg DAILY NGT Last administered on 07/02/16 09:07; Admin Dose 81 MG; Start 07/02/16 at 09:00 Procedures Procedures PROCEDURE: XR Chest. CLINICAL INDICATION: Endotracheal tube adjustment TECHNIQUE: A single AP view of the chest was obtained. COMPARISON: Chest x-ray dated 06/30/2016 FINDINGS: The endotracheal tube tip is approximately 3.7 cm above the tabatha. The tip of the enteric tube projects over the left upper quadrant. There is a right internal jugular central venous catheter with tip in the mid SVC. There are diffuse bilateral reticulonodular interstitial opacities. No focal airspace opacification, pleural effusion or pneumothorax is seen. The cardiomediastinal silhouette is within normal limits for size. The osseous structures are unremarkable. IMPRESSION: 1. Diffuse bilateral reticulonodular interstitial opacities may reflect interstitial edema or pneumonia. Overall, no significant interval change. 2. Tubes and lines, as described above. RPTAT: HH .Shabnam Espinoza MD, MD Date Time Electronically viewed and signed by .Shabnam Espinoza MD, MD on 07/01/2016 06 :06 .G/ CC: ELIZABETH STERN MD, [facility] CHRISTINA JOSEPH Jul 02, 2016 09:26
[2016-07-02] MEDS ORDERED: SOD CHLORIDE 0.9% 1,000 ML IV SCH (09:30)
[2016-07-02] MEDS: LORAZEPAM 2 MG INJ IV PRN ×3 (09:40→20:48)
--- NOTE | 2016-07-02 10:06 | RADRPT ---
PROCEDURE: XR Chest. CLINICAL INDICATION: Pneumonia, CHF TECHNIQUE: A single AP view of the chest was obtained. COMPARISON: Chest x-ray dated 07/01/2016 FINDINGS: The endotracheal tube tip is approximately 2.0 cm above the tabatha. The tip of the enteric tube ex tends below the left diaphragm. There is a right internal jugular central venous catheter with tip i n the mid SVC. There are left lung and right lower lobe alveolar opacities. No pleural effusion or pneumothorax is seen. The cardiomediastinal silhouette is upper limits of normal in size. The osseous structures are unremarkable. IMPRESSION: 1. Left lung and right lower lobe alveolar opacities may reflect pulmonary edema or multifocal pneu monia. There is improved aeration of the right upper lobe when compared to the prior examination. 2. Tubes and lines, as described above. RPTAT: HH .Shabnam Espinoza MD, MD Date Time Electronically viewed and signed by .Shabnam Espinoza MD, on 07/02/2016 10:06 .G/
[2016-07-02] MEDS ORDERED: POTASSIUM PHOSPHATE 30 MEQ in SOD CHLORIDE 0.9% 250 ML IVPB ONE (10:30)
--- NOTE | 2016-07-02 12:44 | CONS ---
Date/Time of Note Date/Time of Note DATE: 07/02/16 TIME: 12:08 Assessment/Plan Assessment/Plan Chief Complaint/Hosp Course ID PROGRESS NOTE=> see full consult note dictation Dr. Wagner TOTAL ABX DAY #4 => Vanco IV, Zosyn ADMISSION DX 06/29/16 REVIEWED: 36 yo Shaun Ferreira found down in field 06/28/16 witnessed arrest -> EMS report Vib Fib arrest w/ROSC * Taken to [facility] ED and admit 06/28/16 place on hypothermia protocol T- 90.6 -> -06/29 => Spiked fevers 101.+ - 102.+ >48H on 06/30 & 07/01 * Significant deterioration towards the end of CPAP weaning trial yesterday * Patient had mild hypoxemia with evidence of acute pulmonary edema with prolonged hypoxemia which improved with switching to pressure control ventilation. * Per report -> patient was awake and responsive yesterday CHART REVIEWED: * No significant PMHx * Social history: patient is , has 2 children. * HABITS: (+)Tobacco, remote hx (+)MJ none current / No history of alcohol or drug abuse. 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 * Family history: Couple of patient's aunts have coronary artery disease. 24H INTERVAL SUMMARY * Fevers down 24 hours => Review of systems; unable to be obtained => Patient is orally intubated, non-communicative on the Vent * 06/28/16 Blood/Urine Cx (-), 07/01/16 Influenza A/B screen (-) * CXR 07/02/16: IMPRESSION:1. Left lung and right lower lobe alveolar opacities may reflect pulmonary edema or multifocal pneumonia. There is improved aeration of the right upper lobe when compared to the prior examination. 2. Tubes and lines, as described above. 07/02/16 0515 07/02/16 0515 PHYSICAL EXAMINATION: GENERAL: Overweight M, noncommunicative HEENT: ETT/NGT -> Secure NECK: Supple, trach-> midline CHEST: Equal chest rise bilaterally, scattered rhonchi HEART: Pulse RRR ABDOMEN: Soft, BX (+) EXTREMITIES: Warm, (+)Tattoos legs SKIN: Warm, dry ID ASSESSMENT: 36 yo Shaun Ferreira found down in field 06/28/16 witnessed arrest->CPR started by witnesses in field immediately 1. Status post ventricular fibrillation cardiac arrest with ROSC. * s/p hypothermia protocol 2. NSTEMI 3. Acute pulmonary edema w/severe systolic dysfunction with EF of 15 to 20% . 4. Shock likely septic with a cardiogenic component : 5. Sepsis vs SIRS w/Fevers 102.+, leukocytosis after IABP removal 07/01/16 & Re-intubation 07/01/16 after failed Extubation 07/01/16 * BCx & Urine Cx on admission (-) * Repeat Blood, urine, respiratory cx pending 6. Vent dependent respiratory failure secondary to cardiac arrest.Pulmonary edema. 7. Bilateral pneumonia, possibly from aspiration. 8. Acute kidney injury, resolved. 9. Rhabdomyolysis: improving 10. Chronic Tobacco user 11. Hyperglycemia : A1C 5.7: resolved ( )MRSA Nares = pending INVASIVES: * ETT, NGT, FC, R-IJ TLC ABX ALLERGIES: KNDA CURRENT ABX: TOTAL ABX DAY #4 => Vanco IV, Zosyn ID RECOMMENDATIONS: 1. Repeat BCx, UA, Urine cx sent -> Order for respiratory cx today 2. Continue Vanco IV 3. Change Zosyn to Merrem -- WBC rising on Zosyn x 4 days 4. Watch renal fx 5. Taper ABX per objective micro results and clinical course . Problems: Consultation Date/Type/Reason Admit Date/Time Jun 28, 2016 at 20:48 Initial Consult Date 06/29/16 Type of Consultation: ID Referring Provider: CHRISTINA JOSEPH Exam/Review of Systems Vital Signs Vitals Vital Signs Date Time Temp Pulse Resp B/P Pulse Ox O2 Delivery O2 Flow Rate FiO2 07/02/16 11:00 94 22 107/67 100 Mechanical Ventilator 07/02/16 08:00 99.0 07/02/16 05:20 100 Intake and Output 07/01/16 07/01/16 07/02/16 15:00 23:00 07:00 Intake Total 180 ml 458.05 ml 968.27 ml Output Total 825 ml 295 ml 280 ml Balance -645 ml 163.05 ml 688.27 ml Results Result Diagram: 07/02/16 0515 07/02/16 0515 Results 24 hrs Laboratory Tests Test 07/01/16 13:55 07/01/16 17:34 07/01/16 18:05 07/01/16 19:45 Creatine Kinase 3062 H 2747 H Creatine Kinase Index 1.2 0.8 Creatinine Kinase MB (Mass) 37.50 H 21.40 H Troponin I 34.800 *H 27.100 *H Bedside Glucose 99 Blood Gas Specimen Source Blood arterial Arterial Blood Date Drawn 07/01/2016 9:30:00 PM Arterial Blood pH (Temp corrected) 7.531 H Arterial Blood pCO2 (Temp correct) 25.2 L Arterial Blood pO2 (Temp corrected) 108.2 H Arterial Blood HCO3 20.6 L Arterial Blood Base Excess -0.6 Arterial Blood Oxygen Saturation 98.0 Christ Test ACCEPTAB Arterial Blood Gas Puncture Site Left Radial Arterial Blood Carboxyhemoglobin 0.3 Arterial Blood Methemoglobin 0.4 Blood Gas A-a O2 Differential 435.7 H Oxyhemoglobin Percent 97.3 Total Hemoglobin 13.2 Blood Gas Temperature 37.0 Blood Gas Respiration Rate 22.0 Blood Gas Actual Respiration Rate 22 Blood Gas Modality VENT - PC FiO2 80.0 Blood Gas High PEEP Setting 28.0 Blood Gas Low PEEP Setting 12.0 Blood Gas Notified Whom [place] Blood Gas Notified Time 07/01/2016 9:42:00 PM Test 07/01/16 23:54 07/02/16 05:15 07/02/16 05:41 Bedside Glucose 106 108 White Blood Count 19.2 H Red Blood Count 3.34 L Hemoglobin 10.4 L Hematocrit 30.9 L Mean Corpuscular Volume 92.5 Mean Corpuscular Hemoglobin 31.1 Mean Corpuscular Hemoglobin Concent 33.7 Red Cell Distribution Width 13.6 Platelet Count 128 L Mean Platelet Volume 10.4 Neutrophils % 84.2 H Lymphocytes % 8.0 L Monocytes % 6.9 Eosinophils % 0.1 Basophils % 0.2 Nucleated Red Blood Cells % 0.0 Neutrophils # 16.2 H Lymphocytes # 1.5 Monocytes # 1.3 H Eosinophils # 0.0 Basophils # 0.0 Nucleated Red Blood Cells # 0.0 Sodium Level 139 Potassium Level 3.1 L Chloride Level 105 Carbon Dioxide Level 25 Anion Gap 12 Blood Urea Nitrogen 13 Creatinine 1.01 Glucose Level 119 Calcium Level 7.5 L Phosphorus Level 2.4 #L Magnesium Level 2.1 Thyroid Stimulating Hormone (TSH) 0.695 Free Thyroxine Index 1.81 Thyroxine (T4) 4.2 L Triiodothyronine (T3) Uptake 43.1 H Medications Medications Current Medications Fentanyl 25 mcg 25 mcg Q10M PRN IV SEDATION; Start 06/28/16 at 17:00 Midazolam HCl 50 ml @ 2 mls/hr ONCE IV Last administered on 07/02/16 07:45; Admin Dose 10 MLS/HR; Start 06/28/16 at 17:00 Fentanyl (Sublimaze) 100 ml @ 2.5 mls/hr TITRATE IV Last administered on 07:45; Admin Dose 10 MLS/HR; Start 06/28/16 at 19:00 Famotidine 20 mg 20 mg Q12 IV Last administered on 07/02/16 09:11; Admin Dose 20 MG; Start 06/28/16 at 21:00 Piperacillin Sod/ Tazobactam Sod 100 ml @ 200 mls/hr Q6 IVPB Last administered on 07/02/16 05:41; Admin Dose 200 MLS/HR; Start 06/29/16 at 00:00 Heparin Sodium (Porcine) (Heparin 90295 Units/250 ml) 250 ml @ 0 mls/hr Q24H IV Last administered on 06/30/16 04:31; Admin Dose 8.5 MLS/HR; Start 06/29/16 at 08:30 Heparin Sodium (Porcine) (Heparin (1000 Units/ml)) 4,000 unit PRN PRN IV PENDING LAB VALUE; Start 06/29/16 at 08:30 Meperidine HCl (Demerol) 25 mg Q4H PRN IV shivering post hypothermia pro Last administered on 06/29/16 14:44; Admin Dose 25 MG; Start 06/29/16 at 14:30 Dicyclomine HCl (Bentyl) 20 mg Q6H PRN NGT Hiccups Last administered on 09:54; Admin Dose 20 MG; Start 06/30/16 at 06:30 Insulin Aspart (Novolog Insulin Pen) NOVOLOG *MILD* ALGORI... Q6 SC Last administered on 07/01/16 05:58; Admin Dose 1 UNIT; Start 06/30/16 at 12:00 Miscellaneous Information 1 ea NOTE XX ; Start 06/30/16 at 09:30 Glucose (Glutose) 15 gm Q15M PRN PO DECREASED GLUCOSE; Start 06/30/16 at 09:30 Glucose (Glutose) 22.5 gm Q15M PRN PO DECREASED GLUCOSE; Start 06/30/16 at 09: 30 Dextrose (D50w Syringe) 25 ml Q15M PRN IV DECREASED GLUCOSE; Start 06/30/16 at 09:30 Dextrose (D50w Syringe) 50 ml Q15M PRN IV DECREASED GLUCOSE; Start 06/30/16 at 09:30 Glucagon (Glucagen) 1 mg Q15M PRN IM DECREASED GLUCOSE; Start 06/30/16 at 09:30 Glucose (Glutose) 15 gm Q15M PRN BUCCAL DECREASED GLUCOSE; Start 06/30/16 at 09 :30 Atorvastatin Calcium (Lipitor) 80 mg DAILY PO Last administered on 07/02/16 09 :07; Admin Dose 80 MG; Start 06/30/16 at 09:30 Acetaminophen 650 mg 650 mg Q6 PRN NGT PAIN AND OR ELEVATED TEMP Last administered on 07/02/16 00:06; Admin Dose 650 MG; Start 06/30/16 at 11:00 Dobutamine HCl/ Dextrose 250 ml @ 11.25 mls/ hr TITRATE IV Last administered on 07/01/16 23:48; Admin Dose 15.75 MLS/HR; Start 06/30/16 at 16:30 Lorazepam 2 mg 2 mg Q1HWA PRN IV AGITATION Last administered on 07/02/16 09:40 ; Admin Dose 2 MG; Start 06/30/16 at 17:30 Propofol (Diprivan) 100 ml @ 2.25 mls/hr Q12H IV ; Start 06/30/16 at 17:30 Acetaminophen (Tylenol Supp) 1,000 mg Q6H PRN MS Fever Last administered on 04:03; Admin Dose 1,000 MG; Start 06/30/16 at 21:30 Furosemide 40 mg 40 mg DAILY IV Last administered on 07/02/16 09:07; Admin Dose 40 MG; Start 07/01/16 at 10:00 Vancomycin HCl/ Sodium Chloride (Vancocin/NS) 250 ml @ 83.333 mls/ hr Q12H IVPB Last administered on 07/02/16 09:07; Admin Dose 83.333 MLS/HR; Start at 21:00 Amiodarone HCl (Cordarone) 400 mg BID PO Last administered on 07/02/16 09:07; Admin Dose 400 MG; Start 07/01/16 at 11:00 Aspirin 81 mg 81 mg DAILY NGT Last administered on 07/02/16 09:07; Admin Dose 81 MG; Start 07/02/16 at 09:00 Potassium Phosphate 30 meq/ Sodium Chloride 256.8182 ml @ 64.205 m... ONCE ONCE IVPB Last administered on 07/02/16 10:28; Admin Dose 64.205 MLS/HR; Start 07/02/16 at 10:30; Stop 07/02/16 at 14:29 Sodium Chloride (NS) 1,000 ml @ 80 mls/hr [id number] IV Last administered on 07/02 10:27; Admin Dose 80 MLS/HR; Start 07/02/16 at 09:30 STONE NUGENT NP Jul 02, 2016 12:19
--- NOTE | 2016-07-02 13:21 | CONS ---
Date/Time of Note Date/Time of Note DATE: 07/02/16 TIME: 13:08 Consult Date/Type/Reason Admit Date/Time Jun 28, 2016 at 20:48 Initial Consult Date 06/29/16 Type of Consultation: Pulm/CCM Ordering Provider: CHRISTINA JOSEPH Subjective Remains on high FiO2 on vent. 100% and PEEP 12. Sedated on MV Objective Vital Signs Date Time Temp Pulse Resp B/P Pulse Ox O2 Delivery O2 Flow Rate FiO2 07/02/16 11:00 94 22 107/67 100 Mechanical Ventilator 07/02/16 08:00 99.0 07/02/16 05:20 100 Intake and Output 07/01/16 07/01/16 07/02/16 15:00 23:00 07:00 Intake Total 180 ml 458.05 ml 968.27 ml Output Total 825 ml 295 ml 280 ml Balance -645 ml 163.05 ml 688.27 ml Exam HEENT: Pupils equal, round, and reactive to light. CARDIAC: S1, S2, tachycardia. CHEST: Diminished air entry bilaterally. ABDOMEN: Mildly distended. Bowel sounds present no guarding or rebound. EXTREMITIES: No cyanosis, clubbing or edema. Results/Medications Result Diagram: 07/02/16 0515 07/02/16 0515 Results 24 hrs Laboratory Tests Test 07/01/16 13:55 07/01/16 17:34 07/01/16 18:05 07/01/16 19:45 Creatine Kinase 3062 H 2747 H Creatine Kinase Index 1.2 0.8 Creatinine Kinase MB (Mass) 37.50 H 21.40 H Troponin I 34.800 *H 27.100 *H Bedside Glucose 99 Blood Gas Specimen Source Blood arterial Arterial Blood Date Drawn 07/01/2016 9:30:00 PM Arterial Blood pH (Temp corrected) 7.531 H Arterial Blood pCO2 (Temp correct) 25.2 L Arterial Blood pO2 (Temp corrected) 108.2 H Arterial Blood HCO3 20.6 L Arterial Blood Base Excess -0.6 Arterial Blood Oxygen Saturation 98.0 Christ Test ACCEPTAB Arterial Blood Gas Puncture Site Left Radial Arterial Blood Carboxyhemoglobin 0.3 Arterial Blood Methemoglobin 0.4 Blood Gas A-a O2 Differential 435.7 H Oxyhemoglobin Percent 97.3 Total Hemoglobin 13.2 Blood Gas Temperature 37.0 Blood Gas Respiration Rate 22.0 Blood Gas Actual Respiration Rate 22 Blood Gas Modality VENT - PC FiO2 80.0 Blood Gas High PEEP Setting 28.0 Blood Gas Low PEEP Setting 12.0 Blood Gas Notified Whom MA Blood Gas Notified Time 07/01/2016 9:42:00 PM Test 07/01/16 23:54 07/02/16 05:15 07/02/16 05:41 07/02/16 12:56 Bedside Glucose 106 108 99 White Blood Count 19.2 H Red Blood Count 3.34 L Hemoglobin 10.4 L Hematocrit 30.9 L Mean Corpuscular Volume 92.5 Mean Corpuscular Hemoglobin 31.1 Mean Corpuscular Hemoglobin Concent 33.7 Red Cell Distribution Width 13.6 Platelet Count 128 L Mean Platelet Volume 10.4 Neutrophils % 84.2 H Lymphocytes % 8.0 L Monocytes % 6.9 Eosinophils % 0.1 Basophils % 0.2 Nucleated Red Blood Cells % 0.0 Neutrophils # 16.2 H Lymphocytes # 1.5 Monocytes # 1.3 H Eosinophils # 0.0 Basophils # 0.0 Nucleated Red Blood Cells # 0.0 Sodium Level 139 Potassium Level 3.1 L Chloride Level 105 Carbon Dioxide Level 25 Anion Gap 12 Blood Urea Nitrogen 13 Creatinine 1.01 Glucose Level 119 Calcium Level 7.5 L Phosphorus Level 2.4 #L Magnesium Level 2.1 Thyroid Stimulating Hormone (TSH) 0.695 Free Thyroxine Index 1.81 Thyroxine (T4) 4.2 L Triiodothyronine (T3) Uptake 43.1 H Medications Current Medications Fentanyl 25 mcg 25 mcg Q10M PRN IV SEDATION; Start 06/28/16 at 17:00 Midazolam HCl 50 ml @ 2 mls/hr ONCE IV Last administered on 07/02/16 13:04; Admin Dose 10 MLS/HR; Start 06/28/16 at 17:00 Fentanyl (Sublimaze) 100 ml @ 2.5 mls/hr TITRATE IV Last administered on 07:45; Admin Dose 10 MLS/HR; Start 06/28/16 at 19:00 Famotidine 20 mg 20 mg Q12 IV Last administered on 07/02/16 09:11; Admin Dose 20 MG; Start 06/28/16 at 21:00 Heparin Sodium (Porcine) (Heparin 01821 Units/250 ml) 250 ml @ 0 mls/hr Q24H IV Last administered on 06/30/16 04:31; Admin Dose 8.5 MLS/HR; Start 06/29/16 at 08:30 Heparin Sodium (Porcine) (Heparin (1000 Units/ml)) 4,000 unit PRN PRN IV PENDING LAB VALUE; Start 06/29/16 at 08:30 Meperidine HCl (Demerol) 25 mg Q4H PRN IV shivering post hypothermia pro Last administered on 06/29/16 14:44; Admin Dose 25 MG; Start 06/29/16 at 14:30 Dicyclomine HCl (Bentyl) 20 mg Q6H PRN NGT Hiccups Last administered on 09:54; Admin Dose 20 MG; Start 06/30/16 at 06:30 Insulin Aspart (Novolog Insulin Pen) NOVOLOG *MILD* ALGORI... Q6 SC Last administered on 07/01/16 05:58; Admin Dose 1 UNIT; Start 06/30/16 at 12:00 Miscellaneous Information 1 ea NOTE XX ; Start 06/30/16 at 09:30 Glucose (Glutose) 15 gm Q15M PRN PO DECREASED GLUCOSE; Start 06/30/16 at 09:30 Glucose (Glutose) 22.5 gm Q15M PRN PO DECREASED GLUCOSE; Start 06/30/16 at 09: 30 Dextrose (D50w Syringe) 25 ml Q15M PRN IV DECREASED GLUCOSE; Start 06/30/16 at 09:30 Dextrose (D50w Syringe) 50 ml Q15M PRN IV DECREASED GLUCOSE; Start 06/30/16 at 09:30 Glucagon (Glucagen) 1 mg Q15M PRN IM DECREASED GLUCOSE; Start 06/30/16 at 09:30 Glucose (Glutose) 15 gm Q15M PRN BUCCAL DECREASED GLUCOSE; Start 06/30/16 at 09 :30 Atorvastatin Calcium (Lipitor) 80 mg DAILY PO Last administered on 07/02/16 09 :07; Admin Dose 80 MG; Start 06/30/16 at 09:30 Acetaminophen 650 mg 650 mg Q6 PRN NGT PAIN AND OR ELEVATED TEMP Last administered on 07/02/16 00:06; Admin Dose 650 MG; Start 06/30/16 at 11:00 Dobutamine HCl/ Dextrose 250 ml @ 11.25 mls/ hr TITRATE IV Last administered on 07/01/16 23:48; Admin Dose 15.75 MLS/HR; Start 06/30/16 at 16:30 Lorazepam 2 mg 2 mg Q1HWA PRN IV AGITATION Last administered on 07/02/16 09:40 ; Admin Dose 2 MG; Start 06/30/16 at 17:30 Propofol (Diprivan) 100 ml @ 2.25 mls/hr Q12H IV ; Start 06/30/16 at 17:30 Acetaminophen (Tylenol Supp) 1,000 mg Q6H PRN [place] Fever Last administered on 04:03; Admin Dose 1,000 MG; Start 06/30/16 at 21:30 Furosemide 40 mg 40 mg DAILY IV Last administered on 07/02/16 09:07; Admin Dose 40 MG; Start 07/01/16 at 10:00 Vancomycin HCl/ Sodium Chloride (Vancocin/NS) 250 ml @ 83.333 mls/ hr Q12H IVPB Last administered on 07/02/16 09:07; Admin Dose 83.333 MLS/HR; Start at 21:00 Amiodarone HCl (Cordarone) 400 mg BID PO Last administered on 07/02/16 09:07; Admin Dose 400 MG; Start 07/01/16 at 11:00 Aspirin 81 mg 81 mg DAILY NGT Last administered on 07/02/16 09:07; Admin Dose 81 MG; Start 07/02/16 at 09:00 Potassium Phosphate 30 meq/ Sodium Chloride 256.8182 ml @ 64.205 m... ONCE ONCE IVPB Last administered on 07/02/16 10:28; Admin Dose 64.205 MLS/HR; Start 07/02/16 at 10:30; Stop 07/02/16 at 14:29 Sodium Chloride 1,000 ml @ 80 mls/hr [id number] IV Last administered on 10:27; Admin Dose 80 MLS/HR; Start 07/02/16 at 09:30 Meropenem (Merrem 1 Gm/100 ml (Pmx)) 100 ml @ 200 mls/hr Q12 IVPB ; Start 07/02 at 13:30 Assessment/Plan Additional Assessment/Plan IMP: 1. Cardiopulmonary arrest. Ventricular arrhythmia following spontaneous return of circulation. Ejection fraction 15% cardiogenic shock with elevated troponins 2. Severe Hypoxemic respiratory failure 3. Likely cardiogenic shock 4. Possible aspiration pneumonia 5. Sepsis RECS: 1. Increase diuresis; d/c IVFs; continue dobutamine; consider nipride gtt. 2. Mechanical ventilation with change to VC+ with VT target to 550 ml PEEP 14 cm H2O. 3. Check CVP 4. Broad-spectrum antibiotic 5. DVT and GI prophylaxis Disposition Continue ICU Discussed with primary care team cardiology and nursing staff Critical care time 40 minutes CHINYERE MÁRQUEZ MD Jul 02, 2016 13:21
--- NOTE | 2016-07-02 13:27 | CONS ---
DATE OF ADMISSION: 06/28/2016 DATE OF CONSULTATION: 07/02/2016 TYPE OF CONSULTATION: Infectious Disease. REASON FOR CONSULTATION: Antibiotic management. HISTORY OF PRESENT ILLNESS: Karsten Villatoro is a 36-year-old male who had a cardiac arrest in the [facility] and was resuscitated after shock. He is on hypothermia protocol with possible aspiration pneumoni a. He has unknown past medical history, presents with V-fib, cardiac arrest, it was witnessed. He was down less than a minute. He received epinephrine with return of spontaneous circulation. No sp ontaneous movement. Dr. Waller, the bilingual legal assistant, recommended medical management cardiology and EP consultation. The patient was intubated. Hypothermia protocol was started. Central line w as placed. CT scan of the brain and cervical spine were ordered, though there was no significant ev idence of trauma. He was started on magnesium and amiodarone bolus and a drip. PAST MEDICAL HISTORY: Operations as outlined, none. FAMILY HISTORY: Noncontributory. SOCIAL HISTORY: As noted. ALLERGIES: UNKNOWN. MEDICATIONS: Per chart. REVIEW OF SYSTEMS: Unknown. HOSPITAL COURSE: The patient continues to have a central line and urinary catheter. He is status p ost hypothermic protocol, non-ST elevated [place], ventilator-dependent respiratory failure secondary to cardiac arrest. Noted to have bilateral pneumonia, possible aspiration. Rhabdomyolysis. His most recent chest x-ray shows left lung and right lung alveolar opacities, very slight pulmonary edema or multifocal pneumonia. There is improved aeration of the right upper lobe when compared to the prio r exams. ET tube is present. NG tube present. Right internal jugular CVP is present. MICROBIOLOGY: Blood cultures, urine cultures, and influenza serologies were all negative. The kilo ent was begun on vancomycin and Zosyn. PHYSICAL EXAMINATION: GENERAL: The patient is intubated, sedated. SKIN: Hypothermic. His protocol has been finished. HEENT: He is intubated on a respirator. NECK: Supple. LYMPH NODES: None palpable. CHEST: Decreased breath sounds at the bases. HEART: Without murmur or gallop. ABDOMEN: Soft, nontender, without organosplenomegaly or masses. EXTREMITIES: Without cyanosis, clubbing, or edema. RECTAL AND GENITAL: Deferred. NEUROLOGIC: The patient is sedated but has no real movement. LABORATORY DATA: On admission, his white count was 13.9. Currently, his white count is 19.2. BUN and creatinine 25/03.01. PLAN: We will continue him on current therapy. I will dictate my findings to the hospitalist as we ll as Dr. Vaca, Dr. Chow, Dr. Martinez. Dictated By: GEOVANNA GARCIA MD, JD/ENMA Conf#: [id number] DID#: [id number]
[2016-07-02] MEDS: MEROPENEM 1 GM/100 ML (PMX) 100 ML IVPB SCH ×2 (14:33→22:32)
--- NOTE | 2016-07-02 15:24 | CONS ---
Date/Time of Note Date/Time of Note DATE: 07/02/16 TIME: 15:22 Assessment/Plan Assessment/Plan Additional Assessment/Plan 1. Positive troponin, consistent with a non-ST elevation myocardial infarction. -significant increase in troponin overnight to 40 in setting of severe hypoxia and tachycardia to 140's - now HR < 100, will monitor 2. Status post cardiac arrest- cresp Rx in place, not weaning yet 3. Cardiomyopathy, with a severely depressed left ventricular ejection fraction of approximately 15% to 20% by echo on this admission- con't to keep euvolemic. 4. Respiratory failure. Status post intubation.-low o2 sats to 50's overnight currently improved - pulmonary follows 5. Ventricular fibrillation arrest, witnessed, status post defibrillator x1. 6. Encephalopathy. 7. Leukocytosis - on anti-Bx 8. Anemia. 9. Hypotension.-on dobutamine and low dose levo 10.Fevers Consultation Date/Type/Reason Admit Date/Time Jun 28, 2016 at 20:48 Initial Consult Date 06/29/16 Type of Consultation: Pulm/CCM Referring Provider: CHRISTINA JOSEPH 24 HR Interval Summary Free Text/Dictation NO acute change - not weaning now - con't to keep euvolemic, still critically ill. ROS: No fever, no chills, no nausea, no vomiting, no diarrhea/constipation No recent weight changes No chest pain, no PND, no orthopnea No dizziness, blurred vision No thirst, no heat or cold intolerance (per nurse) + SOB Exam/Review of Systems Vital Signs Vitals Vital Signs Date Time Temp Pulse Resp B/P Pulse Ox O2 Delivery O2 Flow Rate FiO2 07/02/16 15:00 98 20 107/66 99 Mechanical Ventilator 07/02/16 12:00 99.1 07/02/16 05:20 100 Intake and Output 07/01/16 07/01/16 07/02/16 15:00 23:00 07:00 Intake Total 180 ml 458.05 ml 968.27 ml Output Total 825 ml 295 ml 280 ml Balance -645 ml 163.05 ml 688.27 ml Exam General: WN/WD/NAD, AOx 0 HEENT: Unicetric/atraumatic/EOMI (does not follow commands) NECK: JVD elevated, no thyromegaly, intub Lymph: no lymphadenopathy HEART: regular with no S3, II/ systolic murmur at apex LUNGS: Coarse sounds ABD: soft, NT, ND, +BS : Intact Neuro: non focal SKIN: chronic changes EXT: trace edema Results Result Diagram: 07/02/1615 07/02/16 0515 Results 24 hrs Laboratory Tests Test 07/01/16 17:34 07/01/16 18:05 07/01/16 19:45 07/01/16 23:54 Bedside Glucose 99 106 Creatine Kinase 2747 H Creatine Kinase Index 0.8 Creatinine Kinase MB (Mass) 21.40 H Troponin I 27.100 *H Blood Gas Specimen Source Blood arterial Arterial Blood Date Drawn 07/01/2016 9:30:00 PM Arterial Blood pH (Temp corrected) 7.531 H Arterial Blood pCO2 (Temp correct) 25.2 L Arterial Blood pO2 (Temp corrected) 108.2 H Arterial Blood HCO3 20.6 L Arterial Blood Base Excess -0.6 Arterial Blood Oxygen Saturation 98.0 Christ Test ACCEPTAB Arterial Blood Gas Puncture Site Left Radial Arterial Blood Carboxyhemoglobin 0.3 Arterial Blood Methemoglobin 0.4 Blood Gas A-a O2 Differential 435.7 H Oxyhemoglobin Percent 97.3 Total Hemoglobin 13.2 Blood Gas Temperature 37.0 Blood Gas Respiration Rate 22.0 Blood Gas Actual Respiration Rate 22 Blood Gas Modality VENT - PC FiO2 80.0 Blood Gas High PEEP Setting 28.0 Blood Gas Low PEEP Setting 12.0 Blood Gas Notified Whom MA Blood Gas Notified Time 07/01/2016 9:42:00 PM Test 07/02/16 05:15 07/02/16 05:41 07/02/16 12:56 White Blood Count 19.2 H Red Blood Count 3.34 L Hemoglobin 10.4 L Hematocrit 30.9 L Mean Corpuscular Volume 92.5 Mean Corpuscular Hemoglobin 31.1 Mean Corpuscular Hemoglobin Concent 33.7 Red Cell Distribution Width 13.6 Platelet Count 128 L Mean Platelet Volume 10.4 Neutrophils % 84.2 H Lymphocytes % 8.0 L Monocytes % 6.9 Eosinophils % 0.1 Basophils % 0.2 Nucleated Red Blood Cells % 0.0 Neutrophils # 16.2 H Lymphocytes # 1.5 Monocytes # 1.3 H Eosinophils # 0.0 Basophils # 0.0 Nucleated Red Blood Cells # 0.0 Sodium Level 139 Potassium Level 3.1 L Chloride Level 105 Carbon Dioxide Level 25 Anion Gap 12 Blood Urea Nitrogen 13 Creatinine 1.01 Glucose Level 119 Calcium Level 7.5 L Phosphorus Level 2.4 #L Magnesium Level 2.1 Thyroid Stimulating Hormone (TSH) 0.695 Free Thyroxine Index 1.81 Thyroxine (T4) 4.2 L Triiodothyronine (T3) Uptake 43.1 H Bedside Glucose 108 99 Medications Medications Current Medications Fentanyl 25 mcg 25 mcg Q10M PRN IV SEDATION; Start 06/28/16 at 17:00 Midazolam HCl 50 ml @ 2 mls/hr ONCE IV Last administered on 07/02/16 13:04; Admin Dose 10 MLS/HR; Start 06/28/16 at 17:00 Fentanyl (Sublimaze) 100 ml @ 2.5 mls/hr TITRATE IV Last administered on 07:45; Admin Dose 10 MLS/HR; Start 06/28/16 at 19:00 Famotidine 20 mg 20 mg Q12 IV Last administered on 07/02/16 09:11; Admin Dose 20 MG; Start 06/28/16 at 21:00 Heparin Sodium (Porcine) (Heparin 13279 Units/250 ml) 250 ml @ 0 mls/hr Q24H IV Last administered on 06/30/16 04:31; Admin Dose 8.5 MLS/HR; Start 06/29/16 at 08:30 Heparin Sodium (Porcine) (Heparin (1000 Units/ml)) 4,000 unit PRN PRN IV PENDING LAB VALUE; Start 06/29/16 at 08:30 Meperidine HCl (Demerol) 25 mg Q4H PRN IV shivering post hypothermia pro Last administered on 06/29/16 14:44; Admin Dose 25 MG; Start 06/29/16 at 14:30 Dicyclomine HCl (Bentyl) 20 mg Q6H PRN NGT Hiccups Last administered on 09:54; Admin Dose 20 MG; Start 06/30/16 at 06:30 Insulin Aspart (Novolog Insulin Pen) NOVOLOG *MILD* ALGORI... Q6 SC Last administered on 07/01/16 05:58; Admin Dose 1 UNIT; Start 06/30/16 at 12:00 Miscellaneous Information 1 ea NOTE XX ; Start 06/30/16 at 09:30 Glucose (Glutose) 15 gm Q15M PRN PO DECREASED GLUCOSE; Start 06/30/16 at 09:30 Glucose (Glutose) 22.5 gm Q15M PRN PO DECREASED GLUCOSE; Start 06/30/16 at 09: 30 Dextrose (D50w Syringe) 25 ml Q15M PRN IV DECREASED GLUCOSE; Start 06/30/16 at 09:30 Dextrose (D50w Syringe) 50 ml Q15M PRN IV DECREASED GLUCOSE; Start 06/30/16 at 09:30 Glucagon (Glucagen) 1 mg Q15M PRN IM DECREASED GLUCOSE; Start 06/30/16 at 09:30 Glucose (Glutose) 15 gm Q15M PRN BUCCAL DECREASED GLUCOSE; Start 06/30/16 at 09 :30 Atorvastatin Calcium (Lipitor) 80 mg DAILY PO Last administered on 07/02/16 09 :07; Admin Dose 80 MG; Start 06/30/16 at 09:30 Acetaminophen 650 mg 650 mg Q6 PRN NGT PAIN AND OR ELEVATED TEMP Last administered on 07/02/16 00:06; Admin Dose 650 MG; Start 06/30/16 at 11:00 Dobutamine HCl/ Dextrose 250 ml @ 11.25 mls/ hr TITRATE IV Last administered on 07/01/16 23:48; Admin Dose 15.75 MLS/HR; Start 06/30/16 at 16:30 Lorazepam 2 mg 2 mg Q1HWA PRN IV AGITATION Last administered on 07/02/16 14:51 ; Admin Dose 2 MG; Start 06/30/16 at 17:30 Propofol (Diprivan) 100 ml @ 2.25 mls/hr Q12H IV ; Start 06/30/16 at 17:30 Acetaminophen (Tylenol Supp) 1,000 mg Q6H PRN SD Fever Last administered on 04:03; Admin Dose 1,000 MG; Start 06/30/16 at 21:30 Furosemide 40 mg 40 mg DAILY IV Last administered on 07/02/16 09:07; Admin Dose 40 MG; Start 07/01/16 at 10:00 Vancomycin HCl/ Sodium Chloride (Vancocin/NS) 250 ml @ 83.333 mls/ hr Q12H IVPB Last administered on 07/02/16 09:07; Admin Dose 83.333 MLS/HR; Start at 21:00 Amiodarone HCl (Cordarone) 400 mg BID PO Last administered on 07/02/16 09:07; Admin Dose 400 MG; Start 07/01/16 at 11:00 Aspirin 81 mg 81 mg DAILY NGT Last administered on 07/02/16 09:07; Admin Dose 81 MG; Start 07/02/16 at 09:00 Meropenem (Merrem 1 Gm/100 ml (Pmx)) 100 ml @ 200 mls/hr Q12 IVPB Last administered on 07/02/16 14:33; Admin Dose 200 MLS/HR; Start 07/02/16 at 13:30 JANICE HARKINS MD Jul 02, 2016 15:24
[2016-07-02 15:57] LABS: AADO2 Arterial 591.3 mmHg (7.0-24.0); Allen Test ACCEPTAB; Arterial Base Excess 0.9 mmol/L (-3.0-3); Arterial COHb 0.2 % (0.0-3.0); Arterial Fraction of Oxyhgb 96.4 % (93.0-99.0); Arterial HCO3 23.2 mmol/L (22.0-26.0); Arterial MetHb 0.4 % (0.0-1.5); MODE VENT - PC
[2016-07-02 16:06] LABS: AADO2 Arterial 330.6 mmHg (7.0-24.0); Allen Test ACCEPTAB; Arterial Base Excess 1.6 mmol/L (-3.0-3); Arterial COHb 0.2 % (0.0-3.0); Arterial Fraction of Oxyhgb 97.3 % (93.0-99.0); Arterial HCO3 25.7 mmol/L (22.0-26.0); Arterial MetHb 0.4 % (0.0-1.5); Arterial Total Hemglobin 8.6 g/dl (12.0-18.0); MODE VENT - AC VC+
[2016-07-02] MEDS: DOBUTamine/D5W 1 MG/ML DRIP 250 ML IV SCH (16:29)
[2016-07-03] VITALS (53 sets, daily range): BP systolic 101–127; BP diastolic 62–95; PULSE 84–108; RESP 5–29
[2016-07-03] MEDS: LORAZEPAM 2 MG INJ IV PRN (03:39)
[2016-07-03] MEDS: MIDAZOLAM (DRIP) 50 mg/50 mL 50 ML IV SCH ×4 (04:15→18:30)
[2016-07-03] MEDS: FENTAnyl (DRIP) 1000 mcg/100mL 100 ML IV SCH ×2 (04:17→16:19)
[2016-07-03] MEDS: ACETAMINOPHEN 650MG/20.3ML CUP NGT PRN ×2 (04:30→21:11)
[2016-07-03 04:58] LABS: AADO2 Arterial 581.7 mmHg (7.0-24.0); Allen Test ACCEPTAB; Arterial Base Excess 0 mmol/L (-3.0-3); Arterial COHb 0.3 % (0.0-3.0); Arterial Fraction of Oxyhgb 95.2 % (93.0-99.0); Arterial HCO3 25.5 mmol/L (22.0-26.0); Arterial MetHb 0.3 % (0.0-1.5); Arterial Total Hemglobin 12.6 g/dl (12.0-18.0); MODE VENT - AC
[2016-07-03] MEDS: PROPOFOL 100 ML IV SCH ×2 (05:30→17:30)
[2016-07-03 05:47] LABS: ADD SCAN DIFF NO
[2016-07-03 05:57] LABS: ALBUMIN 2.8 g/dl (3.3-4.9); CALCIUM 7.6 mg/dl (8.4-10.2); CREATININE 0.77 mg/dl (0.61-1.24); MAGNESIUM 2.1 mg/dl (1.7-2.5); PHOSPHORUS 2.5 mg/dl (2.5-4.9); POTASSIUM 3.3 mmol/L (3.5-5.1)
[2016-07-03] MEDS: INSULIN ASPART [NOVOLOG] 3 ML PEN SC SCH ×4 (06:00→18:00)
[2016-07-03] MEDS: POTASSIUM CHLORIDE 50 ML IVPB PRN ×3 (06:06→08:26)
--- NOTE | 2016-07-03 07:03 | RADRPT ---
PROCEDURE: XR Chest. TECHNIQUE: Single frontal radiograph. CLINICAL INDICATION: vent. COMPARISON: 07/02/2016. FINDINGS: Stable position of endotracheal tube and right internal jugular central venous catheter. Nasogastri c tube is in place with the distal side port at the level of the GE junction. There are worsening bilateral air space opacities and consolidations. The cardiac silhouette is sta ble. IMPRESSION: 1. Increased diffuse bilateral air space opacities and consolidations. 2. Distal side port of the nasogastric tube is at the level of the GE junction; recommend advanceme nt by 5-6 cm to reduce the risk of aspiration. RPTAT: EE .Jason Nieves MD, MD Date Time Electronically viewed and signed by .Jason Nieves MD, MD on 07/03/2016 07:07 .C/
[2016-07-03] MEDS: HEPARIN 25000 UNITS/D5W 250 ML IV SCH (08:30)
[2016-07-03] MEDS: FUROSEMIDE 40 MG INJ IV SCH ×2 (09:13→21:08)
[2016-07-03] MEDS: ASPIRIN 81 MG TAB NGT SCH (09:14)
[2016-07-03] MEDS: AMIODARONE 200 MG TAB PO SCH ×2 (09:15→21:08)
[2016-07-03] MEDS: FAMOTIDINE 20 MG INJ IV SCH ×2 (09:15→21:08)
[2016-07-03] MEDS: ATORVASTATIN 80 MG TAB PO SCH (09:15)
[2016-07-03] MEDS: DOBUTamine/D5W 1 MG/ML DRIP 250 ML IV SCH (09:26)
--- NOTE | 2016-07-03 09:33 | PN ---
Date/Time of Note Date/Time of Note DATE: 07/03/16 TIME: 09:31 Assessment/Plan VTE Prophylaxis VTE Prophylaxis Intervention: SCD's VTE Contraindication Reason: bleeding Lines/Catheters IV Catheter Type (from Nrsg): Central Line Central line still needed: Yes Urinary Cath still in place: Yes Reason Cath still needed: other (indicate) Assessment/Plan Assessment/Plan IMPRESSION: 1. Status post ventricular fibrillation cardiac arrest with ROSC. * s/p hypothermia protocol 2. NSTEMI 3. Vent dependent respiratory failure secondary to cardiac arrest. 4. Shock likely septic with a cardiogenic component : ?worsening 5. Severe systolic dysfunction with EF of 15 to 20%. 6. Pulmonary edema. 7. Bilateral pneumonia, possibly from aspiration. 8. Bacteremia per Nursing report 9. Chronic Tobacco user 10. Acute kidney injury, resolved. 11. Hyperglycemia : A!C 5.7: resolved 12. Rhabdomyolysis: improving PLAN: * Continue ventilator support and pressor support and wean off as tolerated. * F/u cardiology plan re: NSTEMI * Patient still spiking fevers despite abx / f/u final cultures * Continue current medical management including Pepcid / Heparin / aspirin / antibiotics / diuresis * Will also start low dose IVF in view of very high CK levels. * Replace electrolytes and closely monitor * Further workup and management per clinical course. Spoke with family at bedside. CC >35mins Subjective 24 Hr Interval Summary Free Text/Dictation Patient is more alert today, Nursing reports no acute overnight events. Still with mildly bloody urine and resp secretions Exam/Review of Systems Vital Signs Vitals Vital Signs Date Time Temp Pulse Resp B/P Pulse Ox O2 Delivery O2 Flow Rate FiO2 07/03/16 08:00 92 07/03/16 06:00 25 114/71 100 Mechanical Ventilator 07/03/16 05:04 70 07/03/16 04:00 101.7 Intake and Output 07/02/16 07/02/16 07/03/16 15:00 23:00 07:00 Intake Total 733.97 ml 616.00 ml 860.25 ml Output Total 1230 ml 400 ml 320 ml Balance -496.03 ml 216.00 ml 540.25 ml Exam Constitutional: alert, other (comfortable on vent) Head: normocephalic Eyes: PERRL ENMT: intubated Respiratory: clear to auscultation, diminished breath sounds, other (100 %fio2) Cardiovascular: regular rate and rhythm, No murmurs/extra sounds Gastrointestinal: bowel sounds, non-tender, other (tolerating PEG feeds), soft Genitourinary - Male: other (clarke ) Extremities: No edema Neurological: nl mental status Skin: No rash or lesions Results Result Diagram: 07/02/16 0515 07/03/16 0500 Results 24 hrs Laboratory Tests Test 07/02/16 12:56 07/02/16 13:21 07/02/16 17:54 07/03/16 01:26 Bedside Glucose 99 144 106 Blood Gas Specimen Source Blood arterial Arterial Blood Date Drawn 07/02/2016 3:31:25 PM Arterial Blood pH (Temp corrected) 7.444 Arterial Blood pCO2 (Temp correct) 38.4 Arterial Blood pO2 (Temp corrected) 127.2 H Arterial Blood HCO3 25.7 Arterial Blood Base Excess 1.6 Arterial Blood Oxygen Saturation 97.9 Christ Test ACCEPTAB Arterial Blood Gas Puncture Site Right Radial Arterial Blood Carboxyhemoglobin 0.2 Arterial Blood Methemoglobin 0.4 Blood Gas A-a O2 Differential 330.6 H Oxyhemoglobin Percent 97.3 Total Hemoglobin 8.6 L Blood Gas Temperature 37.0 Blood Gas Respiration Rate 18.0 Blood Gas Actual Respiration Rate 22 Blood Gas Modality VENT - AC VC+ FiO2 70.0 Blood Gas Tidal Volume 550.0 Blood Gas Low PEEP Setting 14.0 Blood Gas Critical Value Read Back LAURA العراقي Blood Gas Notified Whom EUNICE GAVIN Blood Gas Notified Time 07/02/2016 3:51:06 PM Test 07/03/16 05:00 07/03/16 06:14 Blood Gas Specimen Source Blood arterial Arterial Blood Date Drawn 07/03/2016 4:30:12 AM Arterial Blood pH (Temp corrected) 7.373 Arterial Blood pCO2 (Temp correct) 44.8 Arterial Blood pO2 (Temp corrected) 86.5 Arterial Blood HCO3 25.5 Arterial Blood Base Excess 0 Arterial Blood Oxygen Saturation 95.8 Christ Test ACCEPTAB Arterial Blood Gas Puncture Site Right Radial Arterial Blood Carboxyhemoglobin 0.3 Arterial Blood Methemoglobin 0.3 Blood Gas A-a O2 Differential 581.7 H Oxyhemoglobin Percent 95.2 Total Hemoglobin 12.6 Blood Gas Temperature 37.0 Blood Gas Respiration Rate 18.0 Blood Gas Actual Respiration Rate 18 Blood Gas Modality VENT - AC FiO2 100.0 Blood Gas Tidal Volume 550.0 Blood Gas Low PEEP Setting 14.0 Blood Gas Notified Whom MM Blood Gas Notified Time 07/03/2016 4:57:57 AM Sodium Level 136 Potassium Level 3.3 L Chloride Level 105 Carbon Dioxide Level 28 Anion Gap 6 L Blood Urea Nitrogen 11 Creatinine 0.77 Glucose Level 101 Lactic Acid Level 1.3 Calcium Level 7.6 L Phosphorus Level 2.5 Magnesium Level 2.1 Albumin 2.8 L Bedside Glucose 138 Medications Medications Current Medications Fentanyl 25 mcg 25 mcg Q10M PRN IV SEDATION; Start 06/28/16 at 17:00 Midazolam HCl 50 ml @ 2 mls/hr ONCE IV Last administered on 07/03/16 09:15; Admin Dose 10 MLS/HR; Start 06/28/16 at 17:00 Fentanyl (Sublimaze) 100 ml @ 2.5 mls/hr TITRATE IV Last administered on 04:17; Admin Dose 10 MLS/HR; Start 06/28/16 at 19:00 Famotidine 20 mg 20 mg Q12 IV Last administered on 07/03/16 09:15; Admin Dose 20 MG; Start 06/28/16 at 21:00 Heparin Sodium (Porcine) (Heparin 79692 Units/250 ml) 250 ml @ 0 mls/hr Q24H IV Last administered on 06/30/16 04:31; Admin Dose 8.5 MLS/HR; Start 06/29/16 at 08:30 Heparin Sodium (Porcine) (Heparin (1000 Units/ml)) 4,000 unit PRN PRN IV PENDING LAB VALUE; Start 06/29/16 at 08:30 Meperidine HCl (Demerol) 25 mg Q4H PRN IV shivering post hypothermia pro Last administered on 06/29/16 14:44; Admin Dose 25 MG; Start 06/29/16 at 14:30 Dicyclomine HCl (Bentyl) 20 mg Q6H PRN NGT Hiccups Last administered on 09:54; Admin Dose 20 MG; Start 06/30/16 at 06:30 Insulin Aspart (Novolog Insulin Pen) NOVOLOG *MILD* ALGORI... Q6 SC Last administered on 07/02/16 17:56; Admin Dose 1 UNIT; Start 06/30/16 at 12:00 Miscellaneous Information 1 ea NOTE XX ; Start 06/30/16 at 09:30 Glucose (Glutose) 15 gm Q15M PRN PO DECREASED GLUCOSE; Start 06/30/16 at 09:30 Glucose (Glutose) 22.5 gm Q15M PRN PO DECREASED GLUCOSE; Start 06/30/16 at 09: 30 Dextrose (D50w Syringe) 25 ml Q15M PRN IV DECREASED GLUCOSE; Start 06/30/16 at 09:30 Dextrose (D50w Syringe) 50 ml Q15M PRN IV DECREASED GLUCOSE; Start 06/30/16 at 09:30 Glucagon (Glucagen) 1 mg Q15M PRN IM DECREASED GLUCOSE; Start 06/30/16 at 09:30 Glucose (Glutose) 15 gm Q15M PRN BUCCAL DECREASED GLUCOSE; Start 06/30/16 at 09 :30 Atorvastatin Calcium (Lipitor) 80 mg DAILY PO Last administered on 07/03/16 09 :15; Admin Dose 80 MG; Start 06/30/16 at 09:30 Acetaminophen 650 mg 650 mg Q6 PRN NGT PAIN AND OR ELEVATED TEMP Last administered on 07/03/16 04:30; Admin Dose 650 MG; Start 06/30/16 at 11:00 Dobutamine HCl/ Dextrose 250 ml @ 11.25 mls/ hr TITRATE IV Last administered on 07/03/16 09:26; Admin Dose 15.75 MLS/HR; Start 06/30/16 at 16:30 Lorazepam 2 mg 2 mg Q1HWA PRN IV AGITATION Last administered on 07/03/16 03:39 ; Admin Dose 2 MG; Start 06/30/16 at 17:30 Propofol (Diprivan) 100 ml @ 2.25 mls/hr Q12H IV ; Start 06/30/16 at 17:30 Acetaminophen (Tylenol Supp) 1,000 mg Q6H PRN [place] Fever Last administered on 04:03; Admin Dose 1,000 MG; Start 06/30/16 at 21:30 Furosemide 40 mg 40 mg DAILY IV Last administered on 07/03/16 09:13; Admin Dose 40 MG; Start 07/01/16 at 10:00 Vancomycin HCl/ Sodium Chloride (Vancocin/NS) 250 ml @ 83.333 mls/ hr Q12H IVPB Last administered on 07/02/16 21:16; Admin Dose 83.333 MLS/HR; Start at 21:00 Amiodarone HCl (Cordarone) 400 mg BID PO Last administered on 07/03/16 09:15; Admin Dose 400 MG; Start 07/01/16 at 11:00 Aspirin 81 mg 81 mg DAILY NGT Last administered on 07/03/16 09:14; Admin Dose 81 MG; Start 07/02/16 at 09:00 Meropenem (Merrem 1 Gm/100 ml (Pmx)) 100 ml @ 200 mls/hr Q12 IVPB Last administered on 07/02/16 22:32; Admin Dose 200 MLS/HR; Start 07/02/16 at 13:30 Procedures Procedures PROCEDURE: XR Chest. TECHNIQUE: Single frontal radiograph. CLINICAL INDICATION: vent. COMPARISON: 07/02/2016. FINDINGS: Stable position of endotracheal tube and right internal jugular central venous catheter. Nasogastric tube is in place with the distal side port at the level of the GE junction. There are worsening bilateral air space opacities and consolidations. The cardiac silhouette is stable. IMPRESSION: 1. Increased diffuse bilateral air space opacities and consolidations. 2. Distal side port of the nasogastric tube is at the level of the GE junction ; recommend advancement by 5-6 cm to reduce the risk of aspiration. RPTAT: EE .Jason Nieves MD, MD Date Time Electronically viewed and signed by .Jason Nieves MD, on 07/03/2016 07:07 .C/ CC: CHINYERE MÁRQUEZ MD, BOLATITO M. Jul 03, 2016 09:33
[2016-07-03 09:38] LABS: BASOPHILS % 0.2 % (0.0-2.0); EOSINOPHILS # 0.1 10^3/ul (0.0-0.5); EOSINOPHILS % 1.1 % (0.0-7.0); HEMATOCRIT 28.2 % (42.0-52.0); HEMOGLOBIN 9.4 g/dl (14.0-18.0); MEAN CORPUSCULAR HEMOGLOBIN 31.5 pg (29.0-33.0); MEAN CORPUSCULAR HGB CONC 33.3 g/dl (32.0-37.0); MEAN CORPUSCULAR VOLUME 94.6 fl (82.0-101.0); MEAN PLATELET VOLUME 10.3 fl (7.4-10.4); MONOCYTE # 1.2 10^3/ul (0.3-0.9); MONOCYTES % 9.2 % (0.0-11.0); NEUTROPHIL # 10.2 10^3/ul (1.6-7.5); NEUTROPHILS % 81.1 % (39.0-77.0); PLATELET COUNT 134 10^3/UL (140-415); RED BLOOD COUNT 2.98 10^6/ul (4.70-6.10); RED CELL DISTRIBUTION WIDTH 13.9 % (11.5-14.5); WHITE BLOOD COUNT 12.6 10^3/ul (4.8-10.8)
[2016-07-03] MEDS: MEROPENEM 1 GM/100 ML (PMX) 100 ML IVPB SCH ×2 (10:18→21:12)
[2016-07-03] MEDS: VANCOMYCIN 1.5 GM in SOD CHLORIDE 0.9% 250 ML IVPB SCH (10:32)
[2016-07-03 10:51] LABS: CK-MB 2.55 ng/ml (0.0-2.4); TROPONIN-I 6.28 ng/ml (0.00-0.12)
--- NOTE | 2016-07-03 12:58 | CONS ---
Date/Time of Note Date/Time of Note DATE: 07/03/16 TIME: 12:55 Consult Date/Type/Reason Admit Date/Time Jun 28, 2016 at 20:48 Initial Consult Date 06/29/16 Type of Consultation: Pulm/CCM Ordering Provider: CHRISTINA JOSEPH Subjective Remains sedated on vent. 100 FiO2 and 14 of PEEP. Objective Vital Signs Date Time Temp Pulse Resp B/P Pulse Ox O2 Delivery O2 Flow Rate FiO2 07/03/16 12:00 92 07/03/16 10:00 21 127/83 99 Mechanical Ventilator 07/03/16 07:30 99.0 07/03/16 05:04 70 Intake and Output 07/02/16 07/02/16 07/03/16 15:00 23:00 07:00 Intake Total 733.97 ml 616.00 ml 890.25 ml Output Total 1230 ml 400 ml 350 ml Balance -496.03 ml 216.00 ml 540.25 ml Exam HEENT: Pupils equal, round, and reactive to light. CARDIAC: S1, S2, +S3 CHEST: Bilateral rales ABDOMEN: Mildly distended. Bowel sounds present no guarding or rebound. EXTREMITIES: No cyanosis, clubbing or edema. Results/Medications Result Diagram: 07/03/16 0500 07/03/16 0500 Results 24 hrs Laboratory Tests Test 07/02/16 12:56 07/02/16 13:21 07/02/16 17:54 07/03/16 01:26 Bedside Glucose 99 144 106 Blood Gas Specimen Source Blood arterial Arterial Blood Date Drawn 07/02/2016 3:31:25 PM Arterial Blood pH (Temp corrected) 7.444 Arterial Blood pCO2 (Temp correct) 38.4 Arterial Blood pO2 (Temp corrected) 127.2 H Arterial Blood HCO3 25.7 Arterial Blood Base Excess 1.6 Arterial Blood Oxygen Saturation 97.9 Christ Test ACCEPTAB Arterial Blood Gas Puncture Site Right Radial Arterial Blood Carboxyhemoglobin 0.2 Arterial Blood Methemoglobin 0.4 Blood Gas A-a O2 Differential 330.6 H Oxyhemoglobin Percent 97.3 Total Hemoglobin 8.6 L Blood Gas Temperature 37.0 Blood Gas Respiration Rate 18.0 Blood Gas Actual Respiration Rate 22 Blood Gas Modality VENT - AC VC+ FiO2 70.0 Blood Gas Tidal Volume 550.0 Blood Gas Low PEEP Setting 14.0 Blood Gas Critical Value Read Back RN N. CHAPLAN Blood Gas Notified Whom EUNICE RT Blood Gas Notified Time 07/02/2016 3:51:06 PM Test 07/03/16 05:00 07/03/16 06:14 07/03/16 09:09 07/03/16 10:17 White Blood Count 12.6 #H Red Blood Count 2.98 L Hemoglobin 9.4 L Hematocrit 28.2 L Mean Corpuscular Volume 94.6 Mean Corpuscular Hemoglobin 31.5 Mean Corpuscular Hemoglobin Concent 33.3 Red Cell Distribution Width 13.9 Platelet Count 134 L Mean Platelet Volume 10.3 Neutrophils % 81.1 H Lymphocytes % 8.0 L Monocytes % 9.2 Eosinophils % 1.1 Basophils % 0.2 Nucleated Red Blood Cells % 0.0 Neutrophils # 10.2 H Lymphocytes # 1.0 Monocytes # 1.2 H Eosinophils # 0.1 Basophils # 0.0 Nucleated Red Blood Cells # 0.0 Blood Gas Specimen Source Blood arterial Arterial Blood Date Drawn 07/03/2016 4:30:12 AM Arterial Blood pH (Temp corrected) 7.373 Arterial Blood pCO2 (Temp correct) 44.8 Arterial Blood pO2 (Temp corrected) 86.5 Arterial Blood HCO3 25.5 Arterial Blood Base Excess 0 Arterial Blood Oxygen Saturation 95.8 Christ Test ACCEPTAB Arterial Blood Gas Puncture Site Right Radial Arterial Blood Carboxyhemoglobin 0.3 Arterial Blood Methemoglobin 0.3 Blood Gas A-a O2 Differential 581.7 H Oxyhemoglobin Percent 95.2 Total Hemoglobin 12.6 Blood Gas Temperature 37.0 Blood Gas Respiration Rate 18.0 Blood Gas Actual Respiration Rate 18 Blood Gas Modality VENT - AC FiO2 100.0 Blood Gas Tidal Volume 550.0 Blood Gas Low PEEP Setting 14.0 Blood Gas Notified Whom MM Blood Gas Notified Time 07/03/2016 4:57:57 AM Sodium Level 136 Potassium Level 3.3 L Chloride Level 105 Carbon Dioxide Level 28 Anion Gap 6 L Blood Urea Nitrogen 11 Creatinine 0.77 Glucose Level 101 Lactic Acid Level 1.3 Calcium Level 7.6 L Phosphorus Level 2.5 Magnesium Level 2.1 Albumin 2.8 L Bedside Glucose 138 Vancomycin Level Trough 5.4 L Creatine Kinase 618 #H Creatine Kinase Index 0.4 Creatinine Kinase MB (Mass) 2.55 H Troponin I 6.280 *H Test 07/03/16 12:10 Bedside Glucose 118 Medications Current Medications Fentanyl 25 mcg 25 mcg Q10M PRN IV SEDATION; Start 06/28/16 at 17:00 Midazolam HCl 50 ml @ 2 mls/hr ONCE IV Last administered on 07/03/16 09:15; Admin Dose 10 MLS/HR; Start 06/28/16 at 17:00 Fentanyl (Sublimaze) 100 ml @ 2.5 mls/hr TITRATE IV Last administered on 04:17; Admin Dose 10 MLS/HR; Start 06/28/16 at 19:00 Famotidine 20 mg 20 mg Q12 IV Last administered on 07/03/16 09:15; Admin Dose 20 MG; Start 06/28/16 at 21:00 Heparin Sodium (Porcine) (Heparin 41771 Units/250 ml) 250 ml @ 0 mls/hr Q24H IV Last administered on 06/30/16 04:31; Admin Dose 8.5 MLS/HR; Start 06/29/16 at 08:30 Heparin Sodium (Porcine) (Heparin (1000 Units/ml)) 4,000 unit PRN PRN IV PENDING LAB VALUE; Start 06/29/16 at 08:30 Meperidine HCl (Demerol) 25 mg Q4H PRN IV shivering post hypothermia pro Last administered on 06/29/16 14:44; Admin Dose 25 MG; Start 06/29/16 at 14:30 Dicyclomine HCl (Bentyl) 20 mg Q6H PRN NGT Hiccups Last administered on 09:54; Admin Dose 20 MG; Start 06/30/16 at 06:30 Insulin Aspart (Novolog Insulin Pen) NOVOLOG *MILD* ALGORI... Q6 SC Last administered on 07/02/16 17:56; Admin Dose 1 UNIT; Start 06/30/16 at 12:00 Miscellaneous Information 1 ea NOTE XX ; Start 06/30/16 at 09:30 Glucose (Glutose) 15 gm Q15M PRN PO DECREASED GLUCOSE; Start 06/30/16 at 09:30 Glucose (Glutose) 22.5 gm Q15M PRN PO DECREASED GLUCOSE; Start 06/30/16 at 09: 30 Dextrose (D50w Syringe) 25 ml Q15M PRN IV DECREASED GLUCOSE; Start 06/30/16 at 09:30 Dextrose (D50w Syringe) 50 ml Q15M PRN IV DECREASED GLUCOSE; Start 06/30/16 at 09:30 Glucagon (Glucagen) 1 mg Q15M PRN IM DECREASED GLUCOSE; Start 06/30/16 at 09:30 Glucose (Glutose) 15 gm Q15M PRN BUCCAL DECREASED GLUCOSE; Start 06/30/16 at 09 :30 Atorvastatin Calcium (Lipitor) 80 mg DAILY PO Last administered on 07/03/16 09 :15; Admin Dose 80 MG; Start 06/30/16 at 09:30 Acetaminophen 650 mg 650 mg Q6 PRN NGT PAIN AND OR ELEVATED TEMP Last administered on 07/03/16 04:30; Admin Dose 650 MG; Start 06/30/16 at 11:00 Dobutamine HCl/ Dextrose 250 ml @ 11.25 mls/ hr TITRATE IV Last administered on 07/03/16 09:26; Admin Dose 15.75 MLS/HR; Start 06/30/16 at 16:30 Lorazepam 2 mg 2 mg Q1HWA PRN IV AGITATION Last administered on 07/03/16 03:39 ; Admin Dose 2 MG; Start 06/30/16 at 17:30 Propofol (Diprivan) 100 ml @ 2.25 mls/hr Q12H IV ; Start 06/30/16 at 17:30 Acetaminophen (Tylenol Supp) 1,000 mg Q6H PRN [place] Fever Last administered on 04:03; Admin Dose 1,000 MG; Start 06/30/16 at 21:30 Furosemide (Lasix) 40 mg DAILY IV Last administered on 07/03/16 09:13; Admin Dose 40 MG; Start 07/01/16 at 10:00 Amiodarone HCl (Cordarone) 400 mg BID PO Last administered on 07/03/16 09:15; Admin Dose 400 MG; Start 07/01/16 at 11:00 Aspirin 81 mg 81 mg DAILY NGT Last administered on 07/03/16 09:14; Admin Dose 81 MG; Start 07/02/16 at 09:00 Meropenem 100 ml @ 200 mls/hr Q12 IVPB Last administered on 07/03/16 10:18; Admin Dose 200 MLS/HR; Start 07/02/16 at 13:30 Vancomycin HCl/ Sodium Chloride (Vancocin/NS) 250 ml @ 83.333 mls/ hr Q8H IVPB ; Start 07/03/16 at 18:00 Miscellaneous Information VANCOMYCIN TROUGH AT 1700 ONCE ONCE XX ; Start 07/04/16 at 17:00; Stop 07/04/16 at 17:01 Norepinephrine/ Dextrose (Levophed/D5W) 500 ml @ 1.87 mls/hr TITRATE IV ; Start 07/03/16 at 11:30 Assessment/Plan Additional Assessment/Plan IMP: 1. Cardiopulmonary arrest. Ventricular arrhythmia following spontaneous return of circulation. Ejection fraction 15% cardiogenic shock with elevated troponins 2. Severe Hypoxemic respiratory failure--due to cardiogenic shock/pulm edema 3. Likely cardiogenic shock 4. Possible aspiration pneumonia 5. Sepsis RECS: 1. Increase diuresis to 40 mg IV Q8 hours 2. Mechanical ventilation--> lower FiO2 to 70%; maintain PEEP 12 -14 cm H2O 3. Check CVP 4. Broad-spectrum antibiotics 5. Continue dobutamine gtt 6. Soon start low dose [place] for afterload reduction Disposition Continue ICU Critical care time 40 minutes CHINYERE MÁRQUEZ MD Jul 03, 2016 12:58
--- NOTE | 2016-07-03 15:01 | CONS ---
Date/Time of Note Date/Time of Note DATE: 07/03/16 TIME: 14:59 Assessment/Plan Assessment/Plan Additional Assessment/Plan 1. Positive troponin, consistent with a non-ST elevation myocardial infarction. -significant increase in troponin overnight to 40 in setting of severe hypoxia and tachycardia to 140's - now HR < 100, will monitor 2. Status post cardiac arrest- cresp Rx in place, BETTER NOw - con't diuresis. 3. Cardiomyopathy, with a severely depressed left ventricular ejection fraction of approximately 15% to 20% by echo on this admission- con't to keep euvolemic. ADD lasix. 4. Respiratory failure. Status post intubation.-low o2 sats to 50's overnight currently improved - pulmonary follows 5. Ventricular fibrillation arrest, witnessed, status post defibrillator x1. 6. Encephalopathy. 7. Leukocytosis - on anti-Bx 8. Anemia. 9. Hypotension.-on dobutamine and low dose levo 10.Fevers Consultation Date/Type/Reason Admit Date/Time Jun 28, 2016 at 20:48 Initial Consult Date 06/29/16 Type of Consultation: Pulm/CCM Referring Provider: CHRISTINA JOSEPH 24 HR Interval Summary Free Text/Dictation Better overall - con't diuresis. HOLD IVF - con't to wean. ROS: No fever, no chills, no nausea, no vomiting, no diarrhea/constipation No recent weight changes No chest pain, no PND, no orthopnea No dizziness, blurred vision No thirst, no heat or cold intolerance (per nurse) Exam/Review of Systems Vital Signs Vitals Vital Signs Date Time Temp Pulse Resp B/P Pulse Ox O2 Delivery O2 Flow Rate FiO2 07/03/16 12:00 92 07/03/16 10:00 21 127/83 99 Mechanical Ventilator 07/03/16 07:30 99.0 07/03/16 05:04 70 Intake and Output 07/02/16 07/02/16 07/03/16 15:00 23:00 07:00 Intake Total 733.97 ml 616.00 ml 890.25 ml Output Total 1230 ml 400 ml 350 ml Balance -496.03 ml 216.00 ml 540.25 ml Exam General: WN/WD/NAD, AOx 0 HEENT: Unicetric/atraumatic/EOMI (does not follow commands) NECK: JVD elevated, no thyromegaly, intubated Lymph: no lymphadenopathy HEART: regular with no S3, II/ systolic murmur at apex LUNGS: Coarse sounds ABD: soft, NT, ND, +BS : Intact Neuro: non focal SKIN: chronic changes EXT: trace edema Results Result Diagram: 07/03/16 0500 07/03/16 0500 Results 24 hrs Laboratory Tests Test 07/02/16 17:54 07/03/16 01:26 07/03/16 05:00 07/03/16 06:14 Bedside Glucose 144 106 138 White Blood Count 12.6 #H Red Blood Count 2.98 L Hemoglobin 9.4 L Hematocrit 28.2 L Mean Corpuscular Volume 94.6 Mean Corpuscular Hemoglobin 31.5 Mean Corpuscular Hemoglobin Concent 33.3 Red Cell Distribution Width 13.9 Platelet Count 134 L Mean Platelet Volume 10.3 Neutrophils % 81.1 H Lymphocytes % 8.0 L Monocytes % 9.2 Eosinophils % 1.1 Basophils % 0.2 Nucleated Red Blood Cells % 0.0 Neutrophils # 10.2 H Lymphocytes # 1.0 Monocytes # 1.2 H Eosinophils # 0.1 Basophils # 0.0 Nucleated Red Blood Cells # 0.0 Blood Gas Specimen Source Blood arterial Arterial Blood Date Drawn 07/03/2016 4:30:12 AM Arterial Blood pH (Temp corrected) 7.373 Arterial Blood pCO2 (Temp correct) 44.8 Arterial Blood pO2 (Temp corrected) 86.5 Arterial Blood HCO3 25.5 Arterial Blood Base Excess 0 Arterial Blood Oxygen Saturation 95.8 Christ Test ACCEPTAB Arterial Blood Gas Puncture Site Right Radial Arterial Blood Carboxyhemoglobin 0.3 Arterial Blood Methemoglobin 0.3 Blood Gas A-a O2 Differential 581.7 H Oxyhemoglobin Percent 95.2 Total Hemoglobin 12.6 Blood Gas Temperature 37.0 Blood Gas Respiration Rate 18.0 Blood Gas Actual Respiration Rate 18 Blood Gas Modality VENT - AC FiO2 100.0 Blood Gas Tidal Volume 550.0 Blood Gas Low PEEP Setting 14.0 Blood Gas Notified Whom MM Blood Gas Notified Time 07/03/2016 4:57:57 AM Sodium Level 136 Potassium Level 3.3 L Chloride Level 105 Carbon Dioxide Level 28 Anion Gap 6 L Blood Urea Nitrogen 11 Creatinine 0.77 Glucose Level 101 Lactic Acid Level 1.3 Calcium Level 7.6 L Phosphorus Level 2.5 Magnesium Level 2.1 Albumin 2.8 L Test 07/03/16 09:09 07/03/16 10:17 07/03/16 12:10 Vancomycin Level Trough 5.4 L Creatine Kinase 618 #H Creatine Kinase Index 0.4 Creatinine Kinase MB (Mass) 2.55 H Troponin I 6.280 *H Bedside Glucose 118 Medications Medications Current Medications Fentanyl 25 mcg 25 mcg Q10M PRN IV SEDATION; Start 06/28/16 at 17:00 Midazolam HCl 50 ml @ 2 mls/hr ONCE IV Last administered on 07/03/16 14:08; Admin Dose 10 MLS/HR; Start 06/28/16 at 17:00 Fentanyl (Sublimaze) 100 ml @ 2.5 mls/hr TITRATE IV Last administered on 04:17; Admin Dose 10 MLS/HR; Start 06/28/16 at 19:00 Famotidine 20 mg 20 mg Q12 IV Last administered on 07/03/16 09:15; Admin Dose 20 MG; Start 06/28/16 at 21:00 Heparin Sodium (Porcine) (Heparin 38945 Units/250 ml) 250 ml @ 0 mls/hr Q24H IV Last administered on 06/30/16 04:31; Admin Dose 8.5 MLS/HR; Start 06/29/16 at 08:30 Heparin Sodium (Porcine) (Heparin (1000 Units/ml)) 4,000 unit PRN PRN IV PENDING LAB VALUE; Start 06/29/16 at 08:30 Meperidine HCl (Demerol) 25 mg Q4H PRN IV shivering post hypothermia pro Last administered on 06/29/16 14:44; Admin Dose 25 MG; Start 06/29/16 at 14:30 Dicyclomine HCl (Bentyl) 20 mg Q6H PRN NGT Hiccups Last administered on 09:54; Admin Dose 20 MG; Start 06/30/16 at 06:30 Insulin Aspart (Novolog Insulin Pen) NOVOLOG *MILD* ALGORI... Q6 SC Last administered on 07/02/16 17:56; Admin Dose 1 UNIT; Start 06/30/16 at 12:00 Miscellaneous Information 1 ea NOTE XX ; Start 06/30/16 at 09:30 Glucose (Glutose) 15 gm Q15M PRN PO DECREASED GLUCOSE; Start 06/30/16 at 09:30 Glucose (Glutose) 22.5 gm Q15M PRN PO DECREASED GLUCOSE; Start 06/30/16 at 09: 30 Dextrose (D50w Syringe) 25 ml Q15M PRN IV DECREASED GLUCOSE; Start 06/30/16 at 09:30 Dextrose (D50w Syringe) 50 ml Q15M PRN IV DECREASED GLUCOSE; Start 06/30/16 at 09:30 Glucagon (Glucagen) 1 mg Q15M PRN IM DECREASED GLUCOSE; Start 06/30/16 at 09:30 Glucose (Glutose) 15 gm Q15M PRN BUCCAL DECREASED GLUCOSE; Start 06/30/16 at 09 :30 Atorvastatin Calcium (Lipitor) 80 mg DAILY PO Last administered on 07/03/16 09 :15; Admin Dose 80 MG; Start 06/30/16 at 09:30 Acetaminophen 650 mg 650 mg Q6 PRN NGT PAIN AND OR ELEVATED TEMP Last administered on 07/03/16 04:30; Admin Dose 650 MG; Start 06/30/16 at 11:00 Dobutamine HCl/ Dextrose 250 ml @ 11.25 mls/ hr TITRATE IV Last administered on 07/03/16 09:26; Admin Dose 15.75 MLS/HR; Start 06/30/16 at 16:30 Lorazepam 2 mg 2 mg Q1HWA PRN IV AGITATION Last administered on 07/03/16 03:39 ; Admin Dose 2 MG; Start 06/30/16 at 17:30 Propofol (Diprivan) 100 ml @ 2.25 mls/hr Q12H IV ; Start 06/30/16 at 17:30 Acetaminophen (Tylenol Supp) 1,000 mg Q6H PRN [place] Fever Last administered on 04:03; Admin Dose 1,000 MG; Start 06/30/16 at 21:30 Amiodarone HCl (Cordarone) 400 mg BID PO Last administered on 07/03/16 09:15; Admin Dose 400 MG; Start 07/01/16 at 11:00 Aspirin 81 mg 81 mg DAILY NGT Last administered on 07/03/16 09:14; Admin Dose 81 MG; Start 07/02/16 at 09:00 Meropenem 100 ml @ 200 mls/hr Q12 IVPB Last administered on 07/03/16t 10:18; Admin Dose 200 MLS/HR; Start 07/02/16 at 13:30 Vancomycin HCl/ Sodium Chloride (Vancocin/NS) 250 ml @ 83.333 mls/ hr Q8H IVPB ; Start 07/03/16 at 18:00 Miscellaneous Information VANCOMYCIN TROUGH AT 1700 ONCE ONCE XX ; Start 07/04/16 at 17:00; Stop 07/04/16 at 17:01 Norepinephrine/ Dextrose (Levophed/D5W) 500 ml @ 1.87 mls/hr TITRATE IV ; Start 07/03/16 at 11:30 Furosemide (Lasix) 40 mg Q8H IV ; Start 07/03/16 at 21:00 JANICE HARKINS MD Jul 03, 2016 15:01
[2016-07-03] MEDS: VANCOMYCIN 1.25 GM in SOD CHLORIDE 0.9% 250 ML IVPB SCH (18:29)
--- NOTE | 2016-07-03 19:50 | CONS ---
Date/Time of Note Date/Time of Note DATE: 07/03/16 TIME: 19:44 Assessment/Plan Assessment/Plan Chief Complaint/Hosp Course ID PROGRESS NOTE TOTAL ABX DAY #5 => Vanco IV, Merrem #2 Zosyn->DC'd 07/02 24H INTERVAL SUMMARY * Fevers down 24 hours => Zosyn changed to Merrem was spiking temps on Zosyn * Patient is orally intubated, non-communicative on the Vent * 06/28/16 Blood/Urine Cx (-), 07/01/16 Influenza A/B screen (-) * SPUTUM CX: GRAM STAIN Final POLYMORPH. LEUKOCYTE 3+ . NO ORGANISM SEEN RESPIRATORY CULTURE Preliminary No growth after 1 day * CXR 07/03/16: There are worsening bilateral air space opacities and consolidations. * 07/03/16 0500 07/03/16 0500 PHYSICAL EXAMINATION: GENERAL: Overweight M, noncommunicative HEENT: ETT/NGT -> Secure NECK: Supple, trach-> midline CHEST: Equal chest rise bilaterally, scattered rhonchi HEART: Pulse RRR ABDOMEN: Soft, BX (+) EXTREMITIES: Warm, (+)Tattoos legs SKIN: Warm, dry ID ASSESSMENT: 36 yo Shaun M found down in field 06/28/16 witnessed arrest->CPR started by witnesses in field immediately 1. Status post ventricular fibrillation cardiac arrest with ROSC. * s/p hypothermia protocol 2. NSTEMI 3. Acute pulmonary edema w/severe systolic dysfunction with EF of 15 to 20% . 4. Shock likely septic with a cardiogenic component : 5. Sepsis vs SIRS w/Fevers 102.+, leukocytosis * BCx & Urine Cx on admission (-) * Repeat Blood, urine, respiratory cx pending 6. Vent dependent respiratory failure secondary to cardiac arrest.Pulmonary edema. 7. Bilateral pneumonia, possibly from aspiration. 8. Acute kidney injury, resolved. 9. Rhabdomyolysis: improving 10. Chronic Tobacco user 11. Hyperglycemia : A1C 5.7: resolved ( )MRSA Nares = pending INVASIVES: * ETT, NGT, FC, R-IJ TLC ABX ALLERGIES: KNDA CURRENT ABX: TOTAL ABX DAY #4 => Vanco IV #4, Merrem #2 Zosyn-> DC'd 07/02 ID RECOMMENDATIONS: 1. Repeat BCx, UA, Urine, respiratory cx (-) 24H 2. Continue ABX ==Taper ABX per objective micro results and clinical course . Problems: Consultation Date/Type/Reason Admit Date/Time Jun 28, 2016 at 20:48 Initial Consult Date 06/29/16 Type of Consultation: ID Referring Provider: CHRISTINA JOSEPH Exam/Review of Systems Vital Signs Vitals Vital Signs Date Time Temp Pulse Resp B/P Pulse Ox O2 Delivery O2 Flow Rate FiO2 07/03/16 18:30 91 16 113/73 98 Mechanical Ventilator 07/03/16 17:00 70 07/03/16 16:30 99.0 Intake and Output 07/02/16 07/02/16 07/03/16 15:00 23:00 07:00 Intake Total 733.97 ml 616.00 ml 976.00 ml Output Total 1230 ml 400 ml 350 ml Balance -496.03 ml 216.00 ml 626.00 ml Results Result Diagram: 07/03/16 0500 07/03/16 0500 Results 24 hrs Laboratory Tests Test 07/03/16 01:26 07/03/16 05:00 07/03/16 06:14 07/03/16 09:09 Bedside Glucose 106 138 White Blood Count 12.6 #H Red Blood Count 2.98 L Hemoglobin 9.4 L Hematocrit 28.2 L Mean Corpuscular Volume 94.6 Mean Corpuscular Hemoglobin 31.5 Mean Corpuscular Hemoglobin Concent 33.3 Red Cell Distribution Width 13.9 Platelet Count 134 L Mean Platelet Volume 10.3 Neutrophils % 81.1 H Lymphocytes % 8.0 L Monocytes % 9.2 Eosinophils % 1.1 Basophils % 0.2 Nucleated Red Blood Cells % 0.0 Neutrophils # 10.2 H Lymphocytes # 1.0 Monocytes # 1.2 H Eosinophils # 0.1 Basophils # 0.0 Nucleated Red Blood Cells # 0.0 Blood Gas Specimen Source Blood arterial Arterial Blood Date Drawn 07/03/2016 4:30:12 AM Arterial Blood pH (Temp corrected) 7.373 Arterial Blood pCO2 (Temp correct) 44.8 Arterial Blood pO2 (Temp corrected) 86.5 Arterial Blood HCO3 25.5 Arterial Blood Base Excess 0 Arterial Blood Oxygen Saturation 95.8 Christ Test ACCEPTAB Arterial Blood Gas Puncture Site Right Radial Arterial Blood Carboxyhemoglobin 0.3 Arterial Blood Methemoglobin 0.3 Blood Gas A-a O2 Differential 581.7 H Oxyhemoglobin Percent 95.2 Total Hemoglobin 12.6 Blood Gas Temperature 37.0 Blood Gas Respiration Rate 18.0 Blood Gas Actual Respiration Rate 18 Blood Gas Modality VENT - AC FiO2 100.0 Blood Gas Tidal Volume 550.0 Blood Gas Low PEEP Setting 14.0 Blood Gas Notified Whom MM Blood Gas Notified Time 07/03/2016 4:57:57 AM Sodium Level 136 Potassium Level 3.3 L Chloride Level 105 Carbon Dioxide Level 28 Anion Gap 6 L Blood Urea Nitrogen 11 Creatinine 0.77 Glucose Level 101 Lactic Acid Level 1.3 Calcium Level 7.6 L Phosphorus Level 2.5 Magnesium Level 2.1 Albumin 2.8 L Vancomycin Level Trough 5.4 L Test 07/03/16 10:17 07/03/16 12:10 07/03/16 18:33 Creatine Kinase 618 #H Creatine Kinase Index 0.4 Creatinine Kinase MB (Mass) 2.55 H Troponin I 6.280 *H Bedside Glucose 118 116 Medications Medications Current Medications Midazolam HCl (Versed) 50 ml @ 2 mls/hr ONCE IV Last administered on 07/03/16 14:08; Admin Dose 10 MLS/HR; Start 06/28/16 at 17:00; Stop 07/03/16 at 23:00 Famotidine 20 mg 20 mg Q12 IV Last administered on 07/03/16 09:15; Admin Dose 20 MG; Start 06/28/16 at 21:00 Heparin Sodium (Porcine) (Heparin 62892 Units/250 ml) 250 ml @ 0 mls/hr Q24H IV Last administered on 06/30/16 04:31; Admin Dose 8.5 MLS/HR; Start 06/29/16 at 08:30 Heparin Sodium (Porcine) (Heparin (1000 Units/ml)) 4,000 unit PRN PRN IV PENDING LAB VALUE; Start 06/29/16 at 08:30 Meperidine HCl (Demerol) 25 mg Q4H PRN IV shivering post hypothermia pro Last administered on 06/29/16 14:44; Admin Dose 25 MG; Start 06/29/16 at 14:30 Dicyclomine HCl (Bentyl) 20 mg Q6H PRN NGT Hiccups Last administered on 09:54; Admin Dose 20 MG; Start 06/30/16 at 06:30 Insulin Aspart (Novolog Insulin Pen) NOVOLOG *MILD* ALGORI... Q6 SC Last administered on 07/02/16 17:56; Admin Dose 1 UNIT; Start 06/30/16 at 12:00 Miscellaneous Information 1 ea NOTE XX ; Start 06/30/16 at 09:30 Glucose (Glutose) 15 gm Q15M PRN PO DECREASED GLUCOSE; Start 06/30/16 at 09:30 Glucose (Glutose) 22.5 gm Q15M PRN PO DECREASED GLUCOSE; Start 06/30/16 at 09: 30 Dextrose (D50w Syringe) 25 ml Q15M PRN IV DECREASED GLUCOSE; Start 06/30/16 at 09:30 Dextrose (D50w Syringe) 50 ml Q15M PRN IV DECREASED GLUCOSE; Start 06/30/16 at 09:30 Glucagon (Glucagen) 1 mg Q15M PRN IM DECREASED GLUCOSE; Start 06/30/16 at 09:30 Glucose (Glutose) 15 gm Q15M PRN BUCCAL DECREASED GLUCOSE; Start 06/30/16 at 09 :30 Atorvastatin Calcium (Lipitor) 80 mg DAILY PO Last administered on 07/03/16 09 :15; Admin Dose 80 MG; Start 06/30/16 at 09:30 Acetaminophen 650 mg 650 mg Q6 PRN NGT PAIN AND OR ELEVATED TEMP Last administered on 07/03/16 04:30; Admin Dose 650 MG; Start 06/30/16 at 11:00 Dobutamine HCl/ Dextrose 250 ml @ 11.25 mls/ hr TITRATE IV Last administered on 07/03/16 09:26; Admin Dose 15.75 MLS/HR; Start 06/30/16 at 16:30 Lorazepam 2 mg 2 mg Q1HWA PRN IV AGITATION Last administered on 07/03/16 03:39 ; Admin Dose 2 MG; Start 06/30/16 at 17:30 Propofol (Diprivan) 100 ml @ 2.25 mls/hr Q12H IV ; Start 06/30/16 at 17:30 Acetaminophen (Tylenol Supp) 1,000 mg Q6H PRN [place] Fever Last administered on 04:03; Admin Dose 1,000 MG; Start 06/30/16 at 21:30 Amiodarone HCl (Cordarone) 400 mg BID PO Last administered on 07/03/16 09:15; Admin Dose 400 MG; Start 07/01/16 at 11:00 Aspirin 81 mg 81 mg DAILY NGT Last administered on 07/03/16 09:14; Admin Dose 81 MG; Start 07/02/16 at 09:00 Meropenem 100 ml @ 200 mls/hr Q12 IVPB Last administered on 07/03/16 10:18; Admin Dose 200 MLS/HR; Start 07/02/16 at 13:30 Vancomycin HCl/ Sodium Chloride (Vancocin/NS) 250 ml @ 83.333 mls/ hr Q8H IVPB Last administered on 07/03/16 18:29; Admin Dose 83.333 MLS/HR; Start at 18:00 Miscellaneous Information VANCOMYCIN TROUGH AT 1700 ONCE ONCE XX ; Start 07/04/16 at 17:00; Stop 07/04/16 at 17:01 Norepinephrine/ Dextrose (Levophed/D5W) 500 ml @ 1.87 mls/hr TITRATE IV ; Start 07/03/16 at 11:30 Furosemide 40 mg 40 mg Q8H IV ; Start 07/03/16 at 21:00 Fentanyl 100 ml @ 2.5 mls/hr TITRATE IV ; Start 07/03/16 at 18:00 Midazolam HCl (Versed) 50 ml @ 1 mls/hr TITRATE IV Last administered on 18:30; Admin Dose 10 MLS/HR; Start 07/03/16 at 18:00 STONE NUGENT NP Jul 03, 2016 19:50
[2016-07-03] MEDS ORDERED: FUROSEMIDE 40 MG INJ IV SCH (21:00)
[2016-07-04] VITALS (78 sets, daily range): BP systolic 100–133; BP diastolic 61–85; PULSE 75–101; RESP 0–27
[2016-07-04] MEDS: FENTAnyl (DRIP) 1000 mcg/100mL 100 ML IV SCH ×3 (00:14→20:19)
[2016-07-04] MEDS: MIDAZOLAM (DRIP) 50 mg/50 mL 50 ML IV SCH ×3 (00:14→11:30)
[2016-07-04] MEDS: INSULIN ASPART [NOVOLOG] 3 ML PEN SC SCH ×5 (00:26→23:48)
[2016-07-04] MEDS: DOBUTamine/D5W 1 MG/ML DRIP 250 ML IV SCH ×2 (01:20→18:48)
[2016-07-04] MEDS: VANCOMYCIN 1.25 GM in SOD CHLORIDE 0.9% 250 ML IVPB SCH ×2 (02:09→10:06)
[2016-07-04 04:43] LABS: AADO2 Arterial 338.6 mmHg (7.0-24.0); Allen Test ACCEPTAB; Arterial Base Excess 6.9 mmol/L (-3.0-3); Arterial COHb 0.3 % (0.0-3.0); Arterial Fraction of Oxyhgb 97.2 % (93.0-99.0); Arterial MetHb 0.3 % (0.0-1.5); Arterial Total Hemglobin 10.4 g/dl (12.0-18.0); MODE VENT - AC
[2016-07-04] MEDS: PROPOFOL 100 ML IV SCH ×2 (04:54→17:30)
[2016-07-04] MEDS: FUROSEMIDE 40 MG INJ IV SCH ×3 (05:02→20:53)
[2016-07-04 06:30] LABS: ADD SCAN DIFF NO
[2016-07-04 06:35] LABS: BASOPHILS % 0.2 % (0.0-2.0); EOSINOPHILS # 0.6 10^3/ul (0.0-0.5); EOSINOPHILS % 5.4 % (0.0-7.0); HEMATOCRIT 29.4 % (42.0-52.0); HEMOGLOBIN 9.8 g/dl (14.0-18.0); LYMPHOCYTES # 1.4 10^3/ul (0.8-2.9); LYMPHOCYTES % 13.7 % (15.0-51.0); MEAN CORPUSCULAR HEMOGLOBIN 30.9 pg (29.0-33.0); MEAN CORPUSCULAR HGB CONC 33.3 g/dl (32.0-37.0); MEAN CORPUSCULAR VOLUME 92.7 fl (82.0-101.0); MONOCYTE # 0.9 10^3/ul (0.3-0.9); MONOCYTES % 9.1 % (0.0-11.0); NEUTROPHIL # 7.2 10^3/ul (1.6-7.5); PLATELET COUNT 141 10^3/UL (140-415); RED BLOOD COUNT 3.17 10^6/ul (4.70-6.10); RED CELL DISTRIBUTION WIDTH 13.3 % (11.5-14.5); WHITE BLOOD COUNT 10.1 10^3/ul (4.8-10.8)
[2016-07-04 06:50] LABS: ALBUMIN 3.1 g/dl (3.3-4.9)
[2016-07-04 06:52] LABS: CALCIUM 8.1 mg/dl (8.4-10.2); CREATININE 0.77 mg/dl (0.61-1.24)
[2016-07-04 06:53] LABS: CREATININE 0.78 mg/dl (0.61-1.24)
[2016-07-04 06:58] LABS: POTASSIUM 2.8 mmol/L (3.5-5.1)
[2016-07-04 06:59] LABS: POTASSIUM 2.8 mmol/L (3.5-5.1)
[2016-07-04] MEDS ORDERED: ALTEPLASE (CATHFLO) 2 MG INJ CATHETER ONE ×3 (07:30)
[2016-07-04] MEDS ORDERED: LIDOCAINE 1% (MPF) 5 ML VIAL SC ONE (07:30)
[2016-07-04] MEDS: POTASSIUM CHLORIDE 50 ML IVPB PRN ×6 (07:38→21:54)
[2016-07-04] MEDS: HEPARIN 25000 UNITS/D5W 250 ML IV SCH (07:46)
--- NOTE | 2016-07-04 08:05 | RADRPT ---
PROCEDURE: XR Chest. CLINICAL INDICATION: vent TECHNIQUE: Single frontal view of the chest was obtained. COMPARISON: Chest x-ray from 07/03/2016 FINDINGS: The endotracheal tube and enteric tube are unchanged in position with the proximal side hole of the enteric tube again noted at the expected location of the gastroesophageal junction. A right IJ central venous line is unchanged in position. Diffuse bilateral air space opacities and consolidations are again noted which appear mildly increas ed. The heart and mediastinum are within normal limits. There is no significant pleural effusion or pneumothorax. IMPRESSION: Mildly increased prominence of diffuse bilateral air space opacities and consolidations. Lines and support tubes are unchanged in position with the proximal side hole of the enteric tube ag ain noted at the expected location of the gastroesophageal junction. RPTAT: EE Physician Carrie Date Time Electronically viewed and signed by Physician Carrie on 07/04/2016 08:05 /
[2016-07-04] MEDS: AMIODARONE 200 MG TAB PO SCH ×2 (09:41→21:38)
[2016-07-04] MEDS: ATORVASTATIN 80 MG TAB PO SCH (09:41)
[2016-07-04] MEDS: MEROPENEM 1 GM/100 ML (PMX) 100 ML IVPB SCH ×2 (09:41→21:38)
[2016-07-04] MEDS: FAMOTIDINE 20 MG INJ IV SCH ×2 (09:41→20:53)
[2016-07-04] MEDS: ASPIRIN 81 MG TAB NGT SCH (09:41)
--- NOTE | 2016-07-04 10:15 | CONS ---
Date/Time of Note Date/Time of Note DATE: 07/04/16 TIME: 10:08 Assessment/Plan Assessment/Plan Chief Complaint/Hosp Course IMPRESSION: 1. Positive troponin, consistent with a non-ST elevation myocardial infarction. -Peaked at 40 and now downtrending significantly 2. Status post cardiac arrest. 3. Cardiomyopathy, with a severely depressed left ventricular ejection fraction of approximately 15% to 20% by echo on this admission. 4. Respiratory failure. Status post intubation.-currently improving o2 sats 5. Ventricular fibrillation arrest, witnessed, status post defibrillator x1. 6. Encephalopathy. 7. Leukocytosis. 8. Anemia. 9. Hypotension.-on dobutamine alone now 10.Fevers Recc: -Tele -Continue dobutamine and wean levo as tolerated only-slow changes on pressors/ inotropes -Continue asa -Continue lasix diuresis and follow volume status closely -Follow for any recurrent bleeding -Continue PO amiodarone -Continue abx's and f/u cx data Problems: Consultation Date/Type/Reason Admit Date/Time Jun 28, 2016 at 20:48 Initial Consult Date 06/29/16 Type of Consultation: Cardiology Reason for Consultation Nstemi Referring Provider: CHRISTINA JOSEPH Exam/Review of Systems Vital Signs Vitals Vital Signs Date Time Temp Pulse Resp B/P Pulse Ox O2 Delivery O2 Flow Rate FiO2 07/04/16 08:00 98.1 80 17 128/80 98 Mechanical Ventilator 07/04/16 05:15 70 Intake and Output 07/03/16 07/03/16 07/04/16 15:00 23:00 07:00 Intake Total 1086.00 ml 397.22 ml 290 ml Output Total 1570 ml 1950 ml 2300 ml Balance -484.00 ml -1552.78 ml -2010 ml Exam Review of Systems: CONSTITUTIONAL: No fevers, chills. PULMONARY: intubated CARDIOVASCULAR: No obvious chest pain/palpitations GASTROINTESTINAL: No nausea/vomiting. GENITOURINARY: No hematuria/dysuria. MUSCULOSKELETAL: No obvious myagias/arthalgias. PSYCHIATRIC: The patient denies depression. NEUROLOGIC: No weakness Constitutional: alert Psych: no complaints Head: normocephalic ENMT: mucosa pink and moist Neck: jvd, supple Respiratory: diminished breath sounds Cardiovascular: regular rate and rhythm Gastrointestinal: non-tender, soft Musculoskeletal: muscle tone Extremities: edema (none) Neurological: other (sedated but arousable) Results Result Diagram: 07/04/16 0538 07/04/16 0538 Results 24 hrs Laboratory Tests Test 07/03/16 10:17 07/03/16 12:10 07/03/16 18:33 07/04/16 00:22 Creatine Kinase 618 #H Creatine Kinase Index 0.4 Creatinine Kinase MB (Mass) 2.55 H Troponin I 6.280 *H Bedside Glucose 118 116 148 Test 07/04/16 05:00 07/04/16 05:05 07/04/16 05:38 Blood Gas Specimen Source Blood arterial Arterial Blood Date Drawn 07/04/2016 4:37:41 AM Arterial Blood pH (Temp corrected) 7.481 H Arterial Blood pCO2 (Temp correct) 42.5 Arterial Blood pO2 (Temp corrected) 114.8 H Arterial Blood HCO3 31.0 H Arterial Blood Base Excess 6.9 H Arterial Blood Oxygen Saturation 97.8 Christ Test ACCEPTAB Arterial Blood Gas Puncture Site Right Radial Arterial Blood Carboxyhemoglobin 0.3 Arterial Blood Methemoglobin 0.3 Blood Gas A-a O2 Differential 338.6 H Oxyhemoglobin Percent 97.2 Total Hemoglobin 10.4 L Blood Gas Temperature 37.0 Blood Gas Respiration Rate 18.0 Blood Gas Actual Respiration Rate 18 Blood Gas Modality VENT - AC FiO2 70.0 Blood Gas Tidal Volume 550.0 Blood Gas Low PEEP Setting 14.0 Blood Gas Inspiratory Pressure 30.0 Blood Gas Notified Whom BR Blood Gas Notified Time 07/04/2016 4:43:32 AM Bedside Glucose 115 White Blood Count 10.1 Red Blood Count 3.17 L Hemoglobin 9.8 L Hematocrit 29.4 L Mean Corpuscular Volume 92.7 Mean Corpuscular Hemoglobin 30.9 Mean Corpuscular Hemoglobin Concent 33.3 Red Cell Distribution Width 13.3 Platelet Count 141 Mean Platelet Volume 10.0 Neutrophils % 71.0 Lymphocytes % 13.7 L Monocytes % 9.1 Eosinophils % 5.4 Basophils % 0.2 Nucleated Red Blood Cells % 0.0 Neutrophils # 7.2 Lymphocytes # 1.4 Monocytes # 0.9 Eosinophils # 0.6 H Basophils # 0.0 Nucleated Red Blood Cells # 0.0 Sodium Level 140 Potassium Level 2.8 *L Chloride Level 98 Carbon Dioxide Level 32 H Anion Gap 13 Blood Urea Nitrogen 11 Creatinine 0.78 Glucose Level 130 Calcium Level 8.0 L Phosphorus Level 3.0 Creatine Kinase 336 #H Albumin 3.1 L Medications Medications Current Medications Famotidine 20 mg 20 mg Q12 IV Last administered on 07/04/16 09:41; Admin Dose 20 MG; Start 06/28/16 at 21:00 Heparin Sodium (Porcine) (Heparin 72015 Units/250 ml) 250 ml @ 0 mls/hr Q24H IV Last administered on 06/30/16 04:31; Admin Dose 8.5 MLS/HR; Start 06/29/16 at 08:30 Heparin Sodium (Porcine) (Heparin (1000 Units/ml)) 4,000 unit PRN PRN IV PENDING LAB VALUE; Start 06/29/16 at 08:30 Meperidine HCl (Demerol) 25 mg Q4H PRN IV shivering post hypothermia pro Last administered on 06/29/16 14:44; Admin Dose 25 MG; Start 06/29/16 at 14:30 Dicyclomine HCl (Bentyl) 20 mg Q6H PRN NGT Hiccups Last administered on 09:54; Admin Dose 20 MG; Start 06/30/16 at 06:30 Insulin Aspart (Novolog Insulin Pen) NOVOLOG *MILD* ALGORI... Q6 SC Last administered on 07/04/16 00:26; Admin Dose 1 UNIT; Start 06/30/16 at 12:00 Miscellaneous Information 1 ea NOTE XX ; Start 06/30/16 at 09:30 Glucose (Glutose) 15 gm Q15M PRN PO DECREASED GLUCOSE; Start 06/30/16 at 09:30 Glucose (Glutose) 22.5 gm Q15M PRN PO DECREASED GLUCOSE; Start 06/30/16 at 09: 30 Dextrose (D50w Syringe) 25 ml Q15M PRN IV DECREASED GLUCOSE; Start 06/30/16 at 09:30 Dextrose (D50w Syringe) 50 ml Q15M PRN IV DECREASED GLUCOSE; Start 06/30/16 at 09:30 Glucagon (Glucagen) 1 mg Q15M PRN IM DECREASED GLUCOSE; Start 06/30/16 at 09:30 Glucose (Glutose) 15 gm Q15M PRN BUCCAL DECREASED GLUCOSE; Start 06/30/16 at 09 :30 Atorvastatin Calcium (Lipitor) 80 mg DAILY PO Last administered on 07/04/16 09 :41; Admin Dose 80 MG; Start 06/30/16 at 09:30 Acetaminophen 650 mg 650 mg Q6 PRN NGT PAIN AND OR ELEVATED TEMP Last administered on 07/03/16 21:11; Admin Dose 650 MG; Start 06/30/16 at 11:00 Dobutamine HCl/ Dextrose 250 ml @ 11.25 mls/ hr TITRATE IV Last administered on 07/03/16 09:26; Admin Dose 15.75 MLS/HR; Start 06/30/16 at 16:30 Lorazepam 2 mg 2 mg Q1HWA PRN IV AGITATION Last administered on 07/03/16 03:39 ; Admin Dose 2 MG; Start 06/30/16 at 17:30 Propofol (Diprivan) 100 ml @ 2.25 mls/hr Q12H IV ; Start 06/30/16 at 17:30 Acetaminophen (Tylenol Supp) 1,000 mg Q6H PRN [place] Fever Last administered on 04:03; Admin Dose 1,000 MG; Start 06/30/16 at 21:30 Amiodarone HCl (Cordarone) 400 mg BID PO Last administered on 07/04/16 09:41; Admin Dose 400 MG; Start 07/01/16 at 11:00 Aspirin 81 mg 81 mg DAILY NGT Last administered on 07/04/16 09:41; Admin Dose 81 MG; Start 07/02/16 at 09:00 Meropenem 100 ml @ 200 mls/hr Q12 IVPB Last administered on 07/04/16 09:41; Admin Dose 200 MLS/HR; Start 07/02/16 at 13:30 Vancomycin HCl/ Sodium Chloride (Vancocin/NS) 250 ml @ 83.333 mls/ hr Q8H IVPB Last administered on 07/04/16 10:06; Admin Dose 83.333 MLS/HR; Start at 18:00 Miscellaneous Information VANCOMYCIN TROUGH AT 1700 ONCE ONCE XX ; Start 07/04/16 at 17:00; Stop 07/04/16 at 17:01 Norepinephrine/ Dextrose (Levophed/D5W) 500 ml @ 1.87 mls/hr TITRATE IV ; Start 07/03/16 at 11:30 Furosemide 40 mg 40 mg Q8H IV Last administered on 07/04/16 05:02; Admin Dose 40 MG; Start 07/03/16 at 21:00 Fentanyl 100 ml @ 2.5 mls/hr TITRATE IV Last administered on 07/04/16 00:14; Admin Dose 10 MLS/HR; Start 07/03/16 at 18:00 Midazolam HCl (Versed) 50 ml @ 1 mls/hr TITRATE IV Last administered on 06:09; Admin Dose 10 MLS/HR; Start 07/03/16 at 18:00 ELIGIO TYSON Jul 04, 2016 10:15
[2016-07-04] MEDS: LORAZEPAM 2 MG INJ IV PRN ×2 (11:05→23:44)
--- NOTE | 2016-07-04 11:06 | CONS ---
Date/Time of Note Date/Time of Note DATE: 07/04/16 TIME: 11:03 Consult Date/Type/Reason Admit Date/Time Jun 28, 2016 at 20:48 Initial Consult Date 06/29/16 Type of Consultation: pulmonary ICU Ordering Provider: CHRISTINA JOSEPH Subjective Continues mechanical ventilation Opens eyes follows simple commands Continues dobutamine drip Still with significant hypoxemia FiO2 of 70% and PEEP of 14 Objective Vital Signs Date Time Temp Pulse Resp B/P Pulse Ox O2 Delivery O2 Flow Rate FiO2 07/04/16 10:09 98 07/04/16 08:45 81 18 70 07/04/16 08:00 98.1 128/80 Mechanical Ventilator Intake and Output 07/03/16 07/03/16 07/04/16 15:00 23:00 07:00 Intake Total 1086.00 ml 613.97 ml 813.53 ml Output Total 1570 ml 1950 ml 2300 ml Balance -484.00 ml -1336.03 ml -1486.47 ml Exam PHYSICAL EXAMINATION GENERAL: Young gentleman intubated on mechanical ventilation appears comfortable at rest VITAL SIGNS: see below. HEENT: Pupils equal, round, and reactive to light. CARDIAC: S1, S2, tachycardia. CHEST: Diminished air entry bilaterally. ABDOMEN: Mildly distended. Bowel sounds present no guarding or rebound. EXTREMITIES: No cyanosis, clubbing or edema. NEUROLOGIC: Unable to assess Results/Medications Result Diagram: 07/04/16 0538 07/04/16 0538 Results 24 hrs Laboratory Tests Test 07/03/16 12:10 07/03/16 18:33 07/04/16 00:22 07/04/16 05:00 Bedside Glucose 118 116 148 Blood Gas Specimen Source Blood arterial Arterial Blood Date Drawn 07/04/2016 4:37:41 AM Arterial Blood pH (Temp corrected) 7.481 H Arterial Blood pCO2 (Temp correct) 42.5 Arterial Blood pO2 (Temp corrected) 114.8 H Arterial Blood HCO3 31.0 H Arterial Blood Base Excess 6.9 H Arterial Blood Oxygen Saturation 97.8 Christ Test ACCEPTAB Arterial Blood Gas Puncture Site Right Radial Arterial Blood Carboxyhemoglobin 0.3 Arterial Blood Methemoglobin 0.3 Blood Gas A-a O2 Differential 338.6 H Oxyhemoglobin Percent 97.2 Total Hemoglobin 10.4 L Blood Gas Temperature 37.0 Blood Gas Respiration Rate 18.0 Blood Gas Actual Respiration Rate 18 Blood Gas Modality VENT - AC FiO2 70.0 Blood Gas Tidal Volume 550.0 Blood Gas Low PEEP Setting 14.0 Blood Gas Inspiratory Pressure 30.0 Blood Gas Notified Whom BR Blood Gas Notified Time 07/04/2016 4:43:32 AM Test 07/04/16 05:05 07/04/16 05:38 Bedside Glucose 115 White Blood Count 10.1 Red Blood Count 3.17 L Hemoglobin 9.8 L Hematocrit 29.4 L Mean Corpuscular Volume 92.7 Mean Corpuscular Hemoglobin 30.9 Mean Corpuscular Hemoglobin Concent 33.3 Red Cell Distribution Width 13.3 Platelet Count 141 Mean Platelet Volume 10.0 Neutrophils % 71.0 Lymphocytes % 13.7 L Monocytes % 9.1 Eosinophils % 5.4 Basophils % 0.2 Nucleated Red Blood Cells % 0.0 Neutrophils # 7.2 Lymphocytes # 1.4 Monocytes # 0.9 Eosinophils # 0.6 H Basophils # 0.0 Nucleated Red Blood Cells # 0.0 Sodium Level 140 Potassium Level 2.8 *L Chloride Level 98 Carbon Dioxide Level 32 H Anion Gap 13 Blood Urea Nitrogen 11 Creatinine 0.78 Glucose Level 130 Calcium Level 8.0 L Phosphorus Level 3.0 Creatine Kinase 336 #H Albumin 3.1 L Medications Current Medications Famotidine 20 mg 20 mg Q12 IV Last administered on 07/04/16 09:41; Admin Dose 20 MG; Start 06/28/16 at 21:00 Heparin Sodium (Porcine) (Heparin 54520 Units/250 ml) 250 ml @ 0 mls/hr Q24H IV Last administered on 06/30/16 04:31; Admin Dose 8.5 MLS/HR; Start 06/29/16 at 08:30 Heparin Sodium (Porcine) (Heparin (1000 Units/ml)) 4,000 unit PRN PRN IV PENDING LAB VALUE; Start 06/29/16 at 08:30 Meperidine HCl (Demerol) 25 mg Q4H PRN IV shivering post hypothermia pro Last administered on 06/29/16 14:44; Admin Dose 25 MG; Start 06/29/16 at 14:30 Dicyclomine HCl (Bentyl) 20 mg Q6H PRN NGT Hiccups Last administered on 09:54; Admin Dose 20 MG; Start 06/30/16 at 06:30 Insulin Aspart (Novolog Insulin Pen) NOVOLOG *MILD* ALGORI... Q6 SC Last administered on 07/04/16 00:26; Admin Dose 1 UNIT; Start 06/30/16 at 12:00 Miscellaneous Information 1 ea NOTE XX ; Start 06/30/16 at 09:30 Glucose (Glutose) 15 gm Q15M PRN PO DECREASED GLUCOSE; Start 06/30/16 at 09:30 Glucose (Glutose) 22.5 gm Q15M PRN PO DECREASED GLUCOSE; Start 06/30/16 at 09: 30 Dextrose (D50w Syringe) 25 ml Q15M PRN IV DECREASED GLUCOSE; Start 06/30/16 at 09:30 Dextrose (D50w Syringe) 50 ml Q15M PRN IV DECREASED GLUCOSE; Start 06/30/16 at 09:30 Glucagon (Glucagen) 1 mg Q15M PRN IM DECREASED GLUCOSE; Start 06/30/16 at 09:30 Glucose (Glutose) 15 gm Q15M PRN BUCCAL DECREASED GLUCOSE; Start 06/30/16 at 09 :30 Atorvastatin Calcium (Lipitor) 80 mg DAILY PO Last administered on 07/04/16 09 :41; Admin Dose 80 MG; Start 06/30/16 at 09:30 Acetaminophen 650 mg 650 mg Q6 PRN NGT PAIN AND OR ELEVATED TEMP Last administered on 07/03/16 21:11; Admin Dose 650 MG; Start 06/30/16 at 11:00 Dobutamine HCl/ Dextrose 250 ml @ 11.25 mls/ hr TITRATE IV Last administered on 07/04/16 01:20; Admin Dose 15.75 MLS/HR; Start 06/30/16 at 16:30 Lorazepam 2 mg 2 mg Q1HWA PRN IV AGITATION Last administered on 07/03/16 03:39 ; Admin Dose 2 MG; Start 06/30/16 at 17:30 Propofol (Diprivan) 100 ml @ 2.25 mls/hr Q12H IV ; Start 06/30/16 at 17:30 Acetaminophen (Tylenol Supp) 1,000 mg Q6H PRN [place] Fever Last administered on 04:03; Admin Dose 1,000 MG; Start 06/30/16 at 21:30 Amiodarone HCl (Cordarone) 400 mg BID PO Last administered on 07/04/16 09:41; Admin Dose 400 MG; Start 07/01/16 at 11:00 Aspirin 81 mg 81 mg DAILY NGT Last administered on 07/04/16 09:41; Admin Dose 81 MG; Start 07/02/16 at 09:00 Meropenem 100 ml @ 200 mls/hr Q12 IVPB Last administered on 07/04/16 09:41; Admin Dose 200 MLS/HR; Start 07/02/16 at 13:30 Vancomycin HCl/ Sodium Chloride (Vancocin/NS) 250 ml @ 83.333 mls/ hr Q8H IVPB Last administered on 07/04/16 10:06; Admin Dose 83.333 MLS/HR; Start at 18:00 Miscellaneous Information VANCOMYCIN TROUGH AT 1700 ONCE ONCE XX ; Start 07/04/16 at 17:00; Stop 07/04/16 at 17:01 Norepinephrine/ Dextrose (Levophed/D5W) 500 ml @ 1.87 mls/hr TITRATE IV ; Start 07/03/16 at 11:30 Furosemide 40 mg 40 mg Q8H IV Last administered on 07/04/16 05:02; Admin Dose 40 MG; Start 07/03/16 at 21:00 Fentanyl 100 ml @ 2.5 mls/hr TITRATE IV Last administered on 07/04/16 10:22; Admin Dose 10 MLS/HR; Start 07/03/16 at 18:00 Midazolam HCl (Versed) 50 ml @ 1 mls/hr TITRATE IV Last administered on 06:09; Admin Dose 10 MLS/HR; Start 07/03/16 at 18:00 Assessment/Plan Chief Complaint/Hosp Course Assessment 1. Cardiopulmonary arrest. Ventricular arrhythmia following spontaneous return of circulation. Ejection fraction 15% cardiogenic shock with elevated troponins 2. Hypoxemic respiratory failure evidence of pulmonary edema on chest x-ray 3. Possible aspiration pneumonia 4. Resolving sepsis 5. Hypokalemia Plan 1. Continue cardiology recommendations continue inotropic support, possible cardiac catheterization this week if condition stabilizes 2. Diuresis with tolerated 3. Mechanical ventilation decrease PEEP and then FiO2 as tolerated 4. Broad-spectrum antibiotics for underlying sepsis 5. DVT and GI prophylaxis Disposition Continue ICU Discussed with primary care team cardiology and nursing staff Critical care time 40 minutes Problems: ELIZABETH STERN MD, FCCP Jul 04, 2016 11:06
--- NOTE | 2016-07-04 12:37 | CONS ---
Date/Time of Note Date/Time of Note DATE: 07/04/16 TIME: 12:30 Assessment/Plan Assessment/Plan Chief Complaint/Hosp Course ID PROGRESS NOTE TOTAL ABX DAY #5 => Vanco IV, Merrem #3 Zosyn->DC'd 07/02 24H INTERVAL SUMMARY * Non-communicative-> Orally intubated on the Vent * WBC normalized today -- fevers resolved after => Zosyn changed to Merrem was spiking temps on Zosyn * ALL Micro on admission (-) * 06/28/16 Blood/Urine Cx (-), 07/01/16 Influenza A/B screen (-) * SPUTUM CX: GRAM STAIN Final POLYMORPH. LEUKOCYTE 3+ . NO ORGANISM SEEN RESPIRATORY CULTURE Final NO GROWTH AFTER 2 DAYS * CXR 07/04/16:Mildly increased prominence of diffuse bilateral air space opacities and consolidations. PHYSICAL EXAMINATION: GENERAL: Overweight M, noncommunicative HEENT: ETT/NGT -> Secure NECK: Supple, trach-> midline CHEST: Equal chest rise bilaterally, scattered rhonchi HEART: Pulse RRR ABDOMEN: Soft, BX (+) EXTREMITIES: Warm, (+)Tattoos legs SKIN: Warm, dry ID ASSESSMENT: 36 yo Shaun Ferreira found down in field 06/28/16 witnessed arrest->CPR started by witnesses in field immediately 1. Status post ventricular fibrillation cardiac arrest with ROSC. * s/p hypothermia protocol 2. NSTEMI 3. Acute pulmonary edema w/severe systolic dysfunction with EF of 15 to 20% . 4. Shock likely septic with a cardiogenic component : 5. Sepsis vs SIRS w/Fevers 102.+, leukocytosis => ASP HCAP * BCx & Urine Cx on admission (-) * Repeat Blood, urine, respiratory cx pending 6. Vent dependent respiratory failure secondary to cardiac arrest.Pulmonary edema. 7. Bilateral pneumonia, possibly from aspiration. * CXRs last 2 days w/ progression: Mildly increased prominence of diffuse bilateral air space opacities and consolidations. 8. Acute kidney injury, resolved. 9. Rhabdomyolysis: improving 10. Chronic Tobacco user 11. Hyperglycemia : A1C 5.7: resolved ( )MRSA Nares = pending INVASIVES: * ETT, NGT, FC, R-IJ TLC ABX ALLERGIES: KNDA CURRENT ABX: TOTAL ABX DAY #5=> Vanco IV #5, Merrem #3 Zosyn-> DC'd 07/02 ID RECOMMENDATIONS: 1. Repeat BCx, UA, Urine, respiratory cx (-) 24H * MRSA screen still pending? 2. Continue ABX ==He improved w/addition of Merrem -- continue for now and taper when CXR improves soon . . Problems: Consultation Date/Type/Reason Admit Date/Time Jun 28, 2016 at 20:48 Initial Consult Date 06/29/16 Type of Consultation: ID Referring Provider: CHRISTINA JOSEPH Exam/Review of Systems Vital Signs Vitals Vital Signs Date Time Temp Pulse Resp B/P Pulse Ox O2 Delivery O2 Flow Rate FiO2 07/04/16 12:00 84 07/04/16 11:00 27 109/69 93 07/04/16 10:00 Mechanical Ventilator 07/04/16 08:45 70 07/04/16 08:00 98.1 Intake and Output 07/03/16 07/03/16 07/04/16 15:00 23:00 07:00 Intake Total 1086.00 ml 613.97 ml 813.53 ml Output Total 1570 ml 1950 ml 2300 ml Balance -484.00 ml -1336.03 ml -1486.47 ml Results Result Diagram: 07/04/16 0538 07/04/16 0538 Results 24 hrs Laboratory Tests Test 07/03/16 18:33 07/04/16 00:22 07/04/16 05:00 07/04/16 05:05 Bedside Glucose 116 148 115 Blood Gas Specimen Source Blood arterial Arterial Blood Date Drawn 07/04/2016 4:37:41 AM Arterial Blood pH (Temp corrected) 7.481 H Arterial Blood pCO2 (Temp correct) 42.5 Arterial Blood pO2 (Temp corrected) 114.8 H Arterial Blood HCO3 31.0 H Arterial Blood Base Excess 6.9 H Arterial Blood Oxygen Saturation 97.8 Christ Test ACCEPTAB Arterial Blood Gas Puncture Site Right Radial Arterial Blood Carboxyhemoglobin 0.3 Arterial Blood Methemoglobin 0.3 Blood Gas A-a O2 Differential 338.6 H Oxyhemoglobin Percent 97.2 Total Hemoglobin 10.4 L Blood Gas Temperature 37.0 Blood Gas Respiration Rate 18.0 Blood Gas Actual Respiration Rate 18 Blood Gas Modality VENT - AC FiO2 70.0 Blood Gas Tidal Volume 550.0 Blood Gas Low PEEP Setting 14.0 Blood Gas Inspiratory Pressure 30.0 Blood Gas Notified Whom BR Blood Gas Notified Time 07/04/2016 4:43:32 AM Test 07/04/16 05:38 07/04/16 12:09 White Blood Count 10.1 Red Blood Count 3.17 L Hemoglobin 9.8 L Hematocrit 29.4 L Mean Corpuscular Volume 92.7 Mean Corpuscular Hemoglobin 30.9 Mean Corpuscular Hemoglobin Concent 33.3 Red Cell Distribution Width 13.3 Platelet Count 141 Mean Platelet Volume 10.0 Neutrophils % 71.0 Lymphocytes % 13.7 L Monocytes % 9.1 Eosinophils % 5.4 Basophils % 0.2 Nucleated Red Blood Cells % 0.0 Neutrophils # 7.2 Lymphocytes # 1.4 Monocytes # 0.9 Eosinophils # 0.6 H Basophils # 0.0 Nucleated Red Blood Cells # 0.0 Sodium Level 140 Potassium Level 2.8 *L Chloride Level 98 Carbon Dioxide Level 32 H Anion Gap 13 Blood Urea Nitrogen 11 Creatinine 0.78 Glucose Level 130 Calcium Level 8.0 L Phosphorus Level 3.0 Creatine Kinase 336 #H Albumin 3.1 L Bedside Glucose 107 Medications Medications Current Medications Famotidine 20 mg 20 mg Q12 IV Last administered on 07/04/16 09:41; Admin Dose 20 MG; Start 06/28/16 at 21:00 Heparin Sodium (Porcine) (Heparin 80688 Units/250 ml) 250 ml @ 0 mls/hr Q24H IV Last administered on 06/30/16 04:31; Admin Dose 8.5 MLS/HR; Start 06/29/16 at 08:30 Heparin Sodium (Porcine) (Heparin (1000 Units/ml)) 4,000 unit PRN PRN IV PENDING LAB VALUE; Start 06/29/16 at 08:30 Meperidine HCl (Demerol) 25 mg Q4H PRN IV shivering post hypothermia pro Last administered on 06/29/16 14:44; Admin Dose 25 MG; Start 06/29/16 at 14:30 Dicyclomine HCl (Bentyl) 20 mg Q6H PRN NGT Hiccups Last administered on 09:54; Admin Dose 20 MG; Start 06/30/16 at 06:30 Insulin Aspart (Novolog Insulin Pen) NOVOLOG *MILD* ALGORI... Q6 SC Last administered on 07/04/16 00:26; Admin Dose 1 UNIT; Start 06/30/16 at 12:00 Miscellaneous Information 1 ea NOTE XX ; Start 06/30/16 at 09:30 Glucose (Glutose) 15 gm Q15M PRN PO DECREASED GLUCOSE; Start 06/30/16 at 09:30 Glucose (Glutose) 22.5 gm Q15M PRN PO DECREASED GLUCOSE; Start 06/30/16 at 09: 30 Dextrose (D50w Syringe) 25 ml Q15M PRN IV DECREASED GLUCOSE; Start 06/30/16 at 09:30 Dextrose (D50w Syringe) 50 ml Q15M PRN IV DECREASED GLUCOSE; Start 06/30/16 at 09:30 Glucagon (Glucagen) 1 mg Q15M PRN IM DECREASED GLUCOSE; Start 06/30/16 at 09:30 Glucose (Glutose) 15 gm Q15M PRN BUCCAL DECREASED GLUCOSE; Start 06/30/16 at 09 :30 Atorvastatin Calcium (Lipitor) 80 mg DAILY PO Last administered on 07/04/16 09 :41; Admin Dose 80 MG; Start 06/30/16 at 09:30 Acetaminophen 650 mg 650 mg Q6 PRN NGT PAIN AND OR ELEVATED TEMP Last administered on 07/03/16 21:11; Admin Dose 650 MG; Start 06/30/16 at 11:00 Dobutamine HCl/ Dextrose 250 ml @ 11.25 mls/ hr TITRATE IV Last administered on 07/04/16 01:20; Admin Dose 15.75 MLS/HR; Start 06/30/16 at 16:30 Lorazepam 2 mg 2 mg Q1HWA PRN IV AGITATION Last administered on 07/04/16 11:05 ; Admin Dose 2 MG; Start 06/30/16 at 17:30 Propofol (Diprivan) 100 ml @ 2.25 mls/hr Q12H IV ; Start 06/30/16 at 17:30 Acetaminophen (Tylenol Supp) 1,000 mg Q6H PRN [place] Fever Last administered on 04:03; Admin Dose 1,000 MG; Start 06/30/16 at 21:30 Amiodarone HCl (Cordarone) 400 mg BID PO Last administered on 07/04/16 09:41; Admin Dose 400 MG; Start 07/01/16 at 11:00 Aspirin 81 mg 81 mg DAILY NGT Last administered on 07/04/16 09:41; Admin Dose 81 MG; Start 07/02/16 at 09:00 Meropenem 100 ml @ 200 mls/hr Q12 IVPB Last administered on 07/04/16 09:41; Admin Dose 200 MLS/HR; Start 07/02/16 at 13:30 Vancomycin HCl/ Sodium Chloride (Vancocin/NS) 250 ml @ 83.333 mls/ hr Q8H IVPB Last administered on 07/04/16 10:06; Admin Dose 83.333 MLS/HR; Start at 18:00 Miscellaneous Information VANCOMYCIN TROUGH AT 1700 ONCE ONCE XX ; Start 07/04/16 at 17:00; Stop 07/04/16 at 17:01 Norepinephrine/ Dextrose (Levophed/D5W) 500 ml @ 1.87 mls/hr TITRATE IV ; Start 07/03/16 at 11:30 Furosemide 40 mg 40 mg Q8H IV Last administered on 07/04/16 05:02; Admin Dose 40 MG; Start 07/03/16 at 21:00 Fentanyl 100 ml @ 2.5 mls/hr TITRATE IV Last administered on 07/04/16 10:22; Admin Dose 10 MLS/HR; Start 07/03/16 at 18:00 Midazolam HCl (Versed) 50 ml @ 1 mls/hr TITRATE IV Last administered on 11:30; Admin Dose 10 MLS/HR; Start 07/03/16 at 18:00 STONE NUGENT NP Jul 04, 2016 12:37
--- NOTE | 2016-07-04 14:45 | PN ---
Date/Time of Note Date/Time of Note DATE: 07/04/16 TIME: 14:37 Assessment/Plan VTE Prophylaxis VTE Prophylaxis Intervention: SCD's Lines/Catheters IV Catheter Type (from [facility]): Central Line Central line still needed: Yes Urinary Cath still in place: Yes Reason Cath still needed: urinary retention Assessment/Plan Chief Complaint/Hosp Course Assessment/Plan: 36 M with: 1. Status post ventricular fibrillation cardiac arrest with ROSC - s/p hypothermia protocol - Continue ventilator support and pressor support and wean off as tolerated. 2. NSTEMI - F/u cardiology plan re: NSTEMI 3. Vent dependent respiratory failure secondary to cardiac arrest. - f/u pulm rec's, monitor 4. Shock likely septic with a cardiogenic component - Patient had fever last night despite abx / f/u final cultures - continue abx 5. Severe systolic dysfunction with EF of 15 to 20%. - Continue current medical management including Pepcid / Heparin / aspirin / antibiotics / diuresis 6. Pulmonary edema - monitor 7. Bilateral pneumonia, possibly from aspiration - abx 8. Chronic Tobacco user - educate about cessation when awake 10. Acute kidney injury, resolved. 11. Hyperglycemia : A!C 5.7: resolved 12. Rhabdomyolysis: improving * Replace electrolytes and closely monitor * Further workup and management per clinical course. Critical Care time = 45mins Problems: Subjective 24 Hr Interval Summary Free Text/Dictation Pt still intubated, on pressor. Exam/Review of Systems Vital Signs Vitals Vital Signs Date Time Temp Pulse Resp B/P Pulse Ox O2 Delivery O2 Flow Rate FiO2 07/04/16 14:00 80 18 125/79 100 07/04/16 12:00 98.6 07/04/16 10:00 Mechanical Ventilator 07/04/16 08:45 70 Intake and Output 07/03/16 07/03/16 07/04/16 15:00 23:00 07:00 Intake Total 1086.00 ml 613.97 ml 813.53 ml Output Total 1570 ml 1950 ml 2300 ml Balance -484.00 ml -1336.03 ml -1486.47 ml Exam Constitutional: alert, other (comfortable on vent) Head: normocephalic Eyes: PERRL ENMT: intubated Respiratory: clear to auscultation Cardiovascular: regular rate and rhythm, No murmurs/extra sounds Gastrointestinal: bowel sounds, non-tender, other (tolerating PEG feeds), soft Genitourinary - Male: other (clarke ) Extremities: No edema Neurological: nl mental status Skin: No rash or lesions Results Result Diagram: 07/04/16 0538 07/04/16 0538 Results 24 hrs Laboratory Tests Test 07/03/16 18:33 07/04/16 00:22 07/04/16 05:00 07/04/16 05:05 Bedside Glucose 116 148 115 Blood Gas Specimen Source Blood arterial Arterial Blood Date Drawn 07/04/2016 4:37:41 AM Arterial Blood pH (Temp corrected) 7.481 H Arterial Blood pCO2 (Temp correct) 42.5 Arterial Blood pO2 (Temp corrected) 114.8 H Arterial Blood HCO3 31.0 H Arterial Blood Base Excess 6.9 H Arterial Blood Oxygen Saturation 97.8 Christ Test ACCEPTAB Arterial Blood Gas Puncture Site Right Radial Arterial Blood Carboxyhemoglobin 0.3 Arterial Blood Methemoglobin 0.3 Blood Gas A-a O2 Differential 338.6 H Oxyhemoglobin Percent 97.2 Total Hemoglobin 10.4 L Blood Gas Temperature 37.0 Blood Gas Respiration Rate 18.0 Blood Gas Actual Respiration Rate 18 Blood Gas Modality VENT - AC FiO2 70.0 Blood Gas Tidal Volume 550.0 Blood Gas Low PEEP Setting 14.0 Blood Gas Inspiratory Pressure 30.0 Blood Gas Notified Whom BR Blood Gas Notified Time 07/04/2016 4:43:32 AM Test 07/04/16 05:38 07/04/16 12:09 White Blood Count 10.1 Red Blood Count 3.17 L Hemoglobin 9.8 L Hematocrit 29.4 L Mean Corpuscular Volume 92.7 Mean Corpuscular Hemoglobin 30.9 Mean Corpuscular Hemoglobin Concent 33.3 Red Cell Distribution Width 13.3 Platelet Count 141 Mean Platelet Volume 10.0 Neutrophils % 71.0 Lymphocytes % 13.7 L Monocytes % 9.1 Eosinophils % 5.4 Basophils % 0.2 Nucleated Red Blood Cells % 0.0 Neutrophils # 7.2 Lymphocytes # 1.4 Monocytes # 0.9 Eosinophils # 0.6 H Basophils # 0.0 Nucleated Red Blood Cells # 0.0 Sodium Level 140 Potassium Level 2.8 *L Chloride Level 98 Carbon Dioxide Level 32 H Anion Gap 13 Blood Urea Nitrogen 11 Creatinine 0.78 Glucose Level 130 Calcium Level 8.0 L Phosphorus Level 3.0 Creatine Kinase 336 #H Albumin 3.1 L Bedside Glucose 107 Medications Medications Current Medications Famotidine 20 mg 20 mg Q12 IV Last administered on 07/04/16 09:41; Admin Dose 20 MG; Start 06/28/16 at 21:00 Heparin Sodium (Porcine) (Heparin 92303 Units/250 ml) 250 ml @ 0 mls/hr Q24H IV Last administered on 06/30/16 04:31; Admin Dose 8.5 MLS/HR; Start 06/29/16 at 08:30 Heparin Sodium (Porcine) (Heparin (1000 Units/ml)) 4,000 unit PRN PRN IV PENDING LAB VALUE; Start 06/29/16 at 08:30 Meperidine HCl (Demerol) 25 mg Q4H PRN IV shivering post hypothermia pro Last administered on 06/29/16 14:44; Admin Dose 25 MG; Start 06/29/16 at 14:30 Dicyclomine HCl (Bentyl) 20 mg Q6H PRN NGT Hiccups Last administered on 09:54; Admin Dose 20 MG; Start 06/30/16 at 06:30 Insulin Aspart (Novolog Insulin Pen) NOVOLOG *MILD* ALGORI... Q6 SC Last administered on 07/04/16 00:26; Admin Dose 1 UNIT; Start 06/30/16 at 12:00 Miscellaneous Information 1 ea NOTE XX ; Start 06/30/16 at 09:30 Glucose (Glutose) 15 gm Q15M PRN PO DECREASED GLUCOSE; Start 06/30/16 at 09:30 Glucose (Glutose) 22.5 gm Q15M PRN PO DECREASED GLUCOSE; Start 06/30/16 at 09: 30 Dextrose (D50w Syringe) 25 ml Q15M PRN IV DECREASED GLUCOSE; Start 06/30/16 at 09:30 Dextrose (D50w Syringe) 50 ml Q15M PRN IV DECREASED GLUCOSE; Start 06/30/16 at 09:30 Glucagon (Glucagen) 1 mg Q15M PRN IM DECREASED GLUCOSE; Start 06/30/16 at 09:30 Glucose (Glutose) 15 gm Q15M PRN BUCCAL DECREASED GLUCOSE; Start 06/30/16 at 09 :30 Atorvastatin Calcium (Lipitor) 80 mg DAILY PO Last administered on 07/04/16 09 :41; Admin Dose 80 MG; Start 06/30/16 at 09:30 Acetaminophen 650 mg 650 mg Q6 PRN NGT PAIN AND OR ELEVATED TEMP Last administered on 07/03/16 21:11; Admin Dose 650 MG; Start 06/30/16 at 11:00 Dobutamine HCl/ Dextrose 250 ml @ 11.25 mls/ hr TITRATE IV Last administered on 07/04/16 01:20; Admin Dose 15.75 MLS/HR; Start 06/30/16 at 16:30 Lorazepam 2 mg 2 mg Q1HWA PRN IV AGITATION Last administered on 07/04/16 11:05 ; Admin Dose 2 MG; Start 06/30/16 at 17:30 Propofol (Diprivan) 100 ml @ 2.25 mls/hr Q12H IV ; Start 06/30/16 at 17:30 Acetaminophen (Tylenol Supp) 1,000 mg Q6H PRN [place] Fever Last administered on 04:03; Admin Dose 1,000 MG; Start 06/30/16 at 21:30 Amiodarone HCl (Cordarone) 400 mg BID PO Last administered on 07/04/16 09:41; Admin Dose 400 MG; Start 07/01/16 at 11:00 Aspirin 81 mg 81 mg DAILY NGT Last administered on 07/04/16 09:41; Admin Dose 81 MG; Start 07/02/16 at 09:00 Meropenem 100 ml @ 200 mls/hr Q12 IVPB Last administered on 07/04/16 09:41; Admin Dose 200 MLS/HR; Start 07/02/16 at 13:30 Vancomycin HCl/ Sodium Chloride (Vancocin/NS) 250 ml @ 83.333 mls/ hr Q8H IVPB Last administered on 07/04/16 10:06; Admin Dose 83.333 MLS/HR; Start at 18:00 Miscellaneous Information VANCOMYCIN TROUGH AT 1700 ONCE ONCE XX ; Start 07/04/16 at 17:00; Stop 07/04/16 at 17:01 Norepinephrine/ Dextrose (Levophed/D5W) 500 ml @ 1.87 mls/hr TITRATE IV ; Start 07/03/16 at 11:30 Furosemide 40 mg 40 mg Q8H IV Last administered on 07/04/16 14:17; Admin Dose 40 MG; Start 07/03/16 at 21:00 Fentanyl 100 ml @ 2.5 mls/hr TITRATE IV Last administered on 07/04/16 10:22; Admin Dose 10 MLS/HR; Start 07/03/16 at 18:00 Midazolam HCl (Versed) 50 ml @ 1 mls/hr TITRATE IV Last administered on 11:30; Admin Dose 10 MLS/HR; Start 07/03/16 at 18:00 BLACK CALVO Jul 04, 2016 14:45
[2016-07-04] MEDS: MIDAZOLAM DRIP 1 MG/ML in NS 100 ML IV SCH (17:56)
[2016-07-04] MEDS: VANCOMYCIN 1 GM in NS 250 ML IVPB SCH (19:49)
[2016-07-05] VITALS (91 sets, daily range): BP systolic 78–135; BP diastolic 55–85; PULSE 71–96; RESP 0–25
[2016-07-05] MEDS: MIDAZOLAM (DRIP) 50 mg/50 mL 50 ML IV SCH ×2 (03:06→11:59)
[2016-07-05] MEDS: VANCOMYCIN 1 GM in NS 250 ML IVPB SCH ×3 (03:56→20:50)
[2016-07-05 04:46] LABS: ADD SCAN DIFF NO
[2016-07-05 05:06] LABS: BASOPHILS % 0.3 % (0.0-2.0); EOSINOPHILS # 0.5 10^3/ul (0.0-0.5); EOSINOPHILS % 4.4 % (0.0-7.0); HEMATOCRIT 31.3 % (42.0-52.0); HEMOGLOBIN 9.9 g/dl (14.0-18.0); LYMPHOCYTES # 1.4 10^3/ul (0.8-2.9); LYMPHOCYTES % 12.1 % (15.0-51.0); MEAN CORPUSCULAR HEMOGLOBIN 29.6 pg (29.0-33.0); MEAN CORPUSCULAR HGB CONC 31.6 g/dl (32.0-37.0); MEAN CORPUSCULAR VOLUME 93.7 fl (82.0-101.0); MEAN PLATELET VOLUME 9.6 fl (7.4-10.4); MONOCYTE # 1.2 10^3/ul (0.3-0.9); NEUTROPHIL # 8.5 10^3/ul (1.6-7.5); NEUTROPHILS % 72.2 % (39.0-77.0); PLATELET COUNT 176 10^3/UL (140-415); RED BLOOD COUNT 3.34 10^6/ul (4.70-6.10); RED CELL DISTRIBUTION WIDTH 13.2 % (11.5-14.5); WHITE BLOOD COUNT 11.7 10^3/ul (4.8-10.8)
[2016-07-05 05:07] LABS: CALCIUM 8.5 mg/dl (8.4-10.2); CREATININE 0.79 mg/dl (0.61-1.24); PHOSPHORUS 3.5 mg/dl (2.5-4.9); POTASSIUM 3.7 mmol/L (3.5-5.1)
[2016-07-05] MEDS: PROPOFOL 100 ML IV SCH ×2 (05:30→17:30)
[2016-07-05] MEDS: FENTAnyl (DRIP) 1000 mcg/100mL 100 ML IV SCH ×2 (05:47→16:40)
[2016-07-05] MEDS: FUROSEMIDE 40 MG INJ IV SCH ×3 (05:47→20:56)
[2016-07-05] MEDS: INSULIN ASPART [NOVOLOG] 3 ML PEN SC SCH ×4 (05:49→23:52)
[2016-07-05 05:53] LABS: POTASSIUM 3.5 mmol/L (3.5-5.1)
[2016-07-05 05:55] LABS: CREATININE 0.79 mg/dl (0.61-1.24)
[2016-07-05 05:56] LABS: CALCIUM 8.3 mg/dl (8.4-10.2)
--- NOTE | 2016-07-05 07:57 | RADRPT ---
PROCEDURE: XR Chest. CLINICAL INDICATION: pna chf TECHNIQUE: Single frontal view of the chest was obtained. COMPARISON: Chest x-ray from 07/04/2016 FINDINGS: The endotracheal tube and enteric tube are unchanged in position with the proximal side hole of the enteric tube again noted at the expected location of the gastroesophageal junction. A right IJ central venous line is unchanged in position. Diffuse bilateral air space opacities and consolidations are again noted which appear mildly increas ed on the left and mildly decreased on the right. The heart and mediastinum are within normal limits. There is no significant pleural effusion or pneumothorax. IMPRESSION: Mildly increased prominence of opacities on the left and mildly decreased prominence of opacities on the right. Lines and support tubes are unchanged in position with the proximal side hole of the enteric tube ag ain noted at the expected location of the gastroesophageal junction. RPTAT: EE Physician Carrie Date Time Electronically viewed and signed by Physician Carrie on 07/05/2016 07:56 /
[2016-07-05 08:22] LABS: AADO2 Arterial 291.7 mmHg (7.0-24.0); Allen Test ACCEPTAB; Arterial Base Excess 8.8 mmol/L (-3.0-3); Arterial COHb 0.3 % (0.0-3.0); Arterial HCO3 33.7 mmol/L (22.0-26.0); Arterial MetHb 0.4 % (0.0-1.5); Arterial Total Hemglobin 12.3 g/dl (12.0-18.0); MODE VENT - AC
[2016-07-05] MEDS: HEPARIN 25000 UNITS/D5W 250 ML IV SCH (08:30)
[2016-07-05] MEDS: ASPIRIN 81 MG TAB NGT SCH (08:32)
[2016-07-05] MEDS: FAMOTIDINE 20 MG INJ IV SCH ×2 (08:33→20:57)
[2016-07-05] MEDS: AMIODARONE 200 MG TAB PO SCH ×2 (08:33→20:56)
[2016-07-05] MEDS: ATORVASTATIN 80 MG TAB PO SCH (08:33)
[2016-07-05] MEDS: MEROPENEM 1 GM/100 ML (PMX) 100 ML IVPB SCH ×2 (08:33→20:53)
--- NOTE | 2016-07-05 09:25 | CONS ---
Date/Time of Note Date/Time of Note DATE: 07/05/16 TIME: 09:22 Assessment/Plan Assessment/Plan Additional Assessment/Plan Chest x-ray was reviewed from today which is showing extensive infiltrative changes involving the left lung with improvement in right lung infiltrates. Endotracheal tube is at an adequate level. Ventilator settings; AC of 18, tidal volume 550, PEEP of 8, 70% FiO2. ABG was reviewed from today pH 7.30, CO2 of 48, PO2 of 156, O2 sat 98%. Patient currently on fentanyl 100 mics per hour, Versed 10 mg/h. Assessment recommendations; 1. Patient admitted with cardiac arrest status post hypothermia protocol with adequate mental status. 2. Extensive bilateral pneumonia with superimposed pulmonary edema. 3. Patient has remained hemodynamically stable. Decrease FiO2 to 40% to keep O2 saturation around 90-94%. Patient scheduled for coronary angiogram tomorrow. Continue current antibiotics. Will obtain follow-up chest x-ray tomorrow. Because of extensive infiltrative changes seen on chest x-ray patient currently is not in a position to be weaned off from ventilator. I did have a detailed discussion the patient's family at bedside and answered all their questions. 35 minutes of critical care time was spent evaluating the patient. Consultation Date/Type/Reason Admit Date/Time Jun 28, 2016 at 20:48 Initial Consult Date 06/29/16 Type of Consultation: Pulmonary/critical care Referring Provider: CHRISTINA JOSEPH 24 HR Interval Summary Free Text/Dictation Patient condition remains critical. Still requiring full ventilator support. Patient despite being on sedation is arousable. General exam; young male, orally intubated, currently in no distress. Exam/Review of Systems Vital Signs Vitals Vital Signs Date Time Temp Pulse Resp B/P Pulse Ox O2 Delivery O2 Flow Rate FiO2 07/05/16 06:45 84 18 114/65 100 07/05/16 06:30 Mechanical Ventilator 07/05/16 05:00 70 07/05/16 04:00 99.3 Intake and Output 07/04/16 07/04/16 07/05/16 15:00 23:00 07:00 Intake Total 611.50 ml 687.5 ml 798.0 ml Output Total 1600 ml 960 ml 1510 ml Balance -988.50 ml -272.5 ml -712.0 ml Exam HEENT exam; supple neck, positive JVD. No lymphadenopathy. Midline trachea. No thyromegaly. Pupils equal and reactive to light. Patient has good dentition. No neck masses, no neck bruits. Chest examination ID: Diminished breath sounds bilaterally. No added sound. S1 -S2 audible, no murmurs. Regular rhythm. Abdomen examination; soft, nontender. No organomegaly. Bowel sounds audible. Extremity exam is; no peripheral edema. Pulses 1+ bilaterally. TWISTER HAND examination; patient is awake. Moves all 4 extremities. Results Result Diagram: 07/05/16 0425 07/05/16 0425 Results 24 hrs Laboratory Tests Test 07/04/16 12:09 07/04/16 16:56 07/04/16 17:00 07/04/16 17:39 Bedside Glucose 107 106 Vancomycin Level Trough 17.2 Potassium Level 3.3 L Test 07/04/16 23:47 07/05/16 04:25 07/05/16 05:48 07/05/16 07:00 Bedside Glucose 94 109 White Blood Count 11.7 H Red Blood Count 3.34 L Hemoglobin 9.9 L Hematocrit 31.3 L Mean Corpuscular Volume 93.7 Mean Corpuscular Hemoglobin 29.6 Mean Corpuscular Hemoglobin Concent 31.6 L Red Cell Distribution Width 13.2 Platelet Count 176 # Mean Platelet Volume 9.6 Neutrophils % 72.2 Lymphocytes % 12.1 L Monocytes % 10.0 Eosinophils % 4.4 Basophils % 0.3 Nucleated Red Blood Cells % 0.0 Neutrophils # 8.5 H Lymphocytes # 1.4 Monocytes # 1.2 H Eosinophils # 0.5 Basophils # 0.0 Nucleated Red Blood Cells # 0.0 Sodium Level 141 Potassium Level 3.5 Chloride Level 98 Carbon Dioxide Level 32 H Anion Gap 15 # Blood Urea Nitrogen 14 Creatinine 0.79 Glucose Level 99 Calcium Level 8.3 L Phosphorus Level 3.5 Creatine Kinase 223 H Albumin 3.0 L Blood Gas Specimen Source Blood arterial Arterial Blood Date Drawn 07/05/2016 7:38:59 AM Arterial Blood pH (Temp corrected) 7.468 H Arterial Blood pCO2 (Temp correct) 47.6 H Arterial Blood pO2 (Temp corrected) 156.2 H Arterial Blood HCO3 33.7 H Arterial Blood Base Excess 8.8 H Arterial Blood Oxygen Saturation 98.7 H Christ Test ACCEPTAB Arterial Blood Gas Puncture Site Right Radial Arterial Blood Carboxyhemoglobin 0.3 Arterial Blood Methemoglobin 0.4 Blood Gas A-a O2 Differential 291.7 H Oxyhemoglobin Percent 98.0 Total Hemoglobin 12.3 Blood Gas Temperature 37.0 Blood Gas Respiration Rate 18.0 Blood Gas Actual Respiration Rate 18 Blood Gas Modality VENT - AC FiO2 70.0 Blood Gas Tidal Volume 550.0 Blood Gas Low PEEP Setting 8.0 Blood Gas Notified Whom JLD Blood Gas Notified Time 07/05/2016 8:22:43 AM Medications Medications Current Medications Famotidine 20 mg 20 mg Q12 IV Last administered on 07/05/16 08:33; Admin Dose 20 MG; Start 06/28/16 at 21:00 Heparin Sodium (Porcine) (Heparin 45526 Units/250 ml) 250 ml @ 0 mls/hr Q24H IV Last administered on 06/30/16 04:31; Admin Dose 8.5 MLS/HR; Start 06/29/16 at 08:30 Heparin Sodium (Porcine) (Heparin (1000 Units/ml)) 4,000 unit PRN PRN IV PENDING LAB VALUE; Start 06/29/16 at 08:30 Meperidine HCl (Demerol) 25 mg Q4H PRN IV shivering post hypothermia pro Last administered on 06/29/16 14:44; Admin Dose 25 MG; Start 06/29/16 at 14:30 Dicyclomine HCl (Bentyl) 20 mg Q6H PRN NGT Hiccups Last administered on 09:54; Admin Dose 20 MG; Start 06/30/16 at 06:30 Insulin Aspart (Novolog Insulin Pen) NOVOLOG *MILD* ALGORI... Q6 SC Last administered on 07/04/16 00:26; Admin Dose 1 UNIT; Start 06/30/16 at 12:00 Miscellaneous Information 1 ea NOTE XX ; Start 06/30/16 at 09:30 Glucose (Glutose) 15 gm Q15M PRN PO DECREASED GLUCOSE; Start 06/30/16 at 09:30 Glucose (Glutose) 22.5 gm Q15M PRN PO DECREASED GLUCOSE; Start 06/30/16 at 09: 30 Dextrose (D50w Syringe) 25 ml Q15M PRN IV DECREASED GLUCOSE; Start 06/30/16 at 09:30 Dextrose (D50w Syringe) 50 ml Q15M PRN IV DECREASED GLUCOSE; Start 06/30/16 at 09:30 Glucagon (Glucagen) 1 mg Q15M PRN IM DECREASED GLUCOSE; Start 06/30/16 at 09:30 Glucose (Glutose) 15 gm Q15M PRN BUCCAL DECREASED GLUCOSE; Start 06/30/16 at 09 :30 Atorvastatin Calcium (Lipitor) 80 mg DAILY PO Last administered on 07/05/16 08 :33; Admin Dose 80 MG; Start 06/30/16 at 09:30 Acetaminophen 650 mg 650 mg Q6 PRN NGT PAIN AND OR ELEVATED TEMP Last administered on 07/03/16 21:11; Admin Dose 650 MG; Start 06/30/16 at 11:00 Dobutamine HCl/ Dextrose 250 ml @ 11.25 mls/ hr TITRATE IV Last administered on 07/04/16 18:48; Admin Dose 13.5 MLS/HR; Start 06/30/16 at 16:30 Lorazepam 2 mg 2 mg Q1HWA PRN IV AGITATION Last administered on 07/04/16 23:44 ; Admin Dose 2 MG; Start 06/30/16 at 17:30 Propofol (Diprivan) 100 ml @ 2.25 mls/hr Q12H IV ; Start 06/30/16 at 17:30 Acetaminophen (Tylenol Supp) 1,000 mg Q6H PRN [place] Fever Last administered on 04:03; Admin Dose 1,000 MG; Start 06/30/16 at 21:30 Amiodarone HCl (Cordarone) 400 mg BID PO Last administered on 07/05/16 08:33; Admin Dose 400 MG; Start 07/01/16 at 11:00 Aspirin 81 mg 81 mg DAILY NGT Last administered on 07/05/16 08:32; Admin Dose 81 MG; Start 07/02/16 at 09:00 Meropenem 100 ml @ 200 mls/hr Q12 IVPB Last administered on 07/05/16 08:33; Admin Dose 200 MLS/HR; Start 07/02/16 at 13:30 Norepinephrine/ Dextrose (Levophed/D5W) 500 ml @ 1.87 mls/hr TITRATE IV ; Start 07/03/16 at 11:30 Furosemide 40 mg 40 mg Q8H IV Last administered on 07/05/16 05:47; Admin Dose 40 MG; Start 07/03/16 at 21:00 Fentanyl 100 ml @ 2.5 mls/hr TITRATE IV Last administered on 07/05/16 05:47; Admin Dose 10 MLS/HR; Start 07/03/16 at 18:00 Midazolam HCl 50 ml @ 1 mls/hr TITRATE IV Last administered on 07/05/16 03:06 ; Admin Dose 10 MLS/HR; Start 07/03/16 at 18:00; Status Future Hold Midazolam HCl 100 mg/Sodium Chloride 100 ml @ 1 mls/hr TITRATE IV Last administered on 07/04/16 17:56; Admin Dose 10 MLS/HR; Start 07/04/16 at 15:00 Vancomycin HCl (Vancocin) 250 ml @ 125 mls/hr Q8H IVPB Last administered on 03:56; Admin Dose 125 MLS/HR; Start 07/04/16 at 20:00 SARITHA RAYMUNDO Jul 05, 2016 09:25
[2016-07-05] MEDS: LORAZEPAM 2 MG INJ IV PRN ×4 (11:21→23:48)
--- NOTE | 2016-07-05 12:20 | CONS ---
Date/Time of Note Date/Time of Note DATE: 07/05/16 TIME: 12:19 Assessment/Plan Assessment/Plan Additional Assessment/Plan 1. Positive troponin, consistent with a non-ST elevation myocardial infarction - MED RX now, no intervention planned now 2. Status post cardiac arrest- cresp Rx in place, BETTER NOw - con't diuresis- STABLE 3. Cardiomyopathy, with a severely depressed left ventricular ejection fraction of approximately 15% to 20% by echo on this admission- con't to keep euvolemic. ADD lasix. 4. Respiratory failure. Status post intubation.-low o2 sats - pulmonary follows 5. Ventricular fibrillation arrest, witnessed, status post defibrillator x1. 6. Encephalopathy. 7. Leukocytosis - on anti-Bx 8. Anemia. 9. Hypotension.-on dobutamine and low dose levo 10.Fevers Consultation Date/Type/Reason Admit Date/Time Jun 28, 2016 at 20:48 Initial Consult Date 06/29/16 Type of Consultation: Pulmonary/critical care Referring Provider: CHRISTINA JOSEPH 24 HR Interval Summary Free Text/Dictation Overall unchanged - con't gentle d iuresis and supportive Rx. ROS: No fever, no chills, no nausea, no vomiting, no diarrhea/constipation No recent weight changes No chest pain, no PND, no orthopnea No dizziness, blurred vision No thirst, no heat or cold intolerance (per nurse) Exam/Review of Systems Vital Signs Vitals Vital Signs Date Time Temp Pulse Resp B/P Pulse Ox O2 Delivery O2 Flow Rate FiO2 07/05/16 09:30 85 17 103/71 96 07/05/16 09:15 70 07/05/16 09:00 Mechanical Ventilator 07/05/16 08:00 98.8 Intake and Output 07/04/16 07/04/16 07/05/16 15:00 23:00 07:00 Intake Total 611.50 ml 687.5 ml 798.0 ml Output Total 1600 ml 960 ml 1510 ml Balance -988.50 ml -272.5 ml -712.0 ml Exam General: WN/WD/NAD, AOx 0 HEENT: Unicetric/atraumatic/EOMI (does not follow commands) NECK: JVD elevated, no thyromegaly, intub Lymph: no lymphadenopathy HEART: regular with no S3, II/ systolic murmur at apex LUNGS: Coarse sounds ABD: soft, NT, ND, +BS : Intact Neuro: non focal SKIN: chronic changes EXT: trace edema Results Result Diagram: 07/05/165 07/05/16 0425 Results 24 hrs Laboratory Tests Test 07/04/16 16:56 07/04/16 17:00 07/04/16 17:39 07/04/16 23:47 Vancomycin Level Trough 17.2 Potassium Level 3.3 L Bedside Glucose 106 94 Test 07/05/16 04:25 07/05/16 05:48 07/05/16 07:00 07/05/16 11:58 White Blood Count 11.7 H Red Blood Count 3.34 L Hemoglobin 9.9 L Hematocrit 31.3 L Mean Corpuscular Volume 93.7 Mean Corpuscular Hemoglobin 29.6 Mean Corpuscular Hemoglobin Concent 31.6 L Red Cell Distribution Width 13.2 Platelet Count 176 # Mean Platelet Volume 9.6 Neutrophils % 72.2 Lymphocytes % 12.1 L Monocytes % 10.0 Eosinophils % 4.4 Basophils % 0.3 Nucleated Red Blood Cells % 0.0 Neutrophils # 8.5 H Lymphocytes # 1.4 Monocytes # 1.2 H Eosinophils # 0.5 Basophils # 0.0 Nucleated Red Blood Cells # 0.0 Sodium Level 141 Potassium Level 3.5 Chloride Level 98 Carbon Dioxide Level 32 H Anion Gap 15 # Blood Urea Nitrogen 14 Creatinine 0.79 Glucose Level 99 Calcium Level 8.3 L Phosphorus Level 3.5 Creatine Kinase 223 H Albumin 3.0 L Bedside Glucose 109 87 Blood Gas Specimen Source Blood arterial Arterial Blood Date Drawn 07/05/2016 7:38:59 AM Arterial Blood pH (Temp corrected) 7.468 H Arterial Blood pCO2 (Temp correct) 47.6 H Arterial Blood pO2 (Temp corrected) 156.2 H Arterial Blood HCO3 33.7 H Arterial Blood Base Excess 8.8 H Arterial Blood Oxygen Saturation 98.7 H Christ Test ACCEPTAB Arterial Blood Gas Puncture Site Right Radial Arterial Blood Carboxyhemoglobin 0.3 Arterial Blood Methemoglobin 0.4 Blood Gas A-a O2 Differential 291.7 H Oxyhemoglobin Percent 98.0 Total Hemoglobin 12.3 Blood Gas Temperature 37.0 Blood Gas Respiration Rate 18.0 Blood Gas Actual Respiration Rate 18 Blood Gas Modality VENT - AC FiO2 70.0 Blood Gas Tidal Volume 550.0 Blood Gas Low PEEP Setting 8.0 Blood Gas Notified Whom JLD Blood Gas Notified Time 07/05/2016 8:22:43 AM Medications Medications Current Medications Famotidine 20 mg 20 mg Q12 IV Last administered on 07/05/16 08:33; Admin Dose 20 MG; Start 06/28/16 at 21:00 Heparin Sodium (Porcine) (Heparin 74488 Units/250 ml) 250 ml @ 0 mls/hr Q24H IV Last administered on 06/30/16 04:31; Admin Dose 8.5 MLS/HR; Start 06/29/16 at 08:30 Heparin Sodium (Porcine) (Heparin (1000 Units/ml)) 4,000 unit PRN PRN IV PENDING LAB VALUE; Start 06/29/16 at 08:30 Meperidine HCl (Demerol) 25 mg Q4H PRN IV shivering post hypothermia pro Last administered on 06/29/16 14:44; Admin Dose 25 MG; Start 06/29/16 at 14:30 Dicyclomine HCl (Bentyl) 20 mg Q6H PRN NGT Hiccups Last administered on 09:54; Admin Dose 20 MG; Start 06/30/16 at 06:30 Insulin Aspart (Novolog Insulin Pen) NOVOLOG *MILD* ALGORI... Q6 SC Last administered on 07/04/16 00:26; Admin Dose 1 UNIT; Start 06/30/16 at 12:00 Miscellaneous Information 1 ea NOTE XX ; Start 06/30/16 at 09:30 Glucose (Glutose) 15 gm Q15M PRN PO DECREASED GLUCOSE; Start 06/30/16 at 09:30 Glucose (Glutose) 22.5 gm Q15M PRN PO DECREASED GLUCOSE; Start 06/30/16 at 09: 30 Dextrose (D50w Syringe) 25 ml Q15M PRN IV DECREASED GLUCOSE; Start 06/30/16 at 09:30 Dextrose (D50w Syringe) 50 ml Q15M PRN IV DECREASED GLUCOSE; Start 06/30/16 at 09:30 Glucagon (Glucagen) 1 mg Q15M PRN IM DECREASED GLUCOSE; Start 06/30/16 at 09:30 Glucose (Glutose) 15 gm Q15M PRN BUCCAL DECREASED GLUCOSE; Start 06/30/16 at 09 :30 Atorvastatin Calcium (Lipitor) 80 mg DAILY PO Last administered on 07/05/16 08 :33; Admin Dose 80 MG; Start 06/30/16 at 09:30 Acetaminophen 650 mg 650 mg Q6 PRN NGT PAIN AND OR ELEVATED TEMP Last administered on 07/03/16 21:11; Admin Dose 650 MG; Start 06/30/16 at 11:00 Dobutamine HCl/ Dextrose 250 ml @ 11.25 mls/ hr TITRATE IV Last administered on 07/04/16 18:48; Admin Dose 13.5 MLS/HR; Start 06/30/16 at 16:30 Lorazepam 2 mg 2 mg Q1HWA PRN IV AGITATION Last administered on 07/05/16 11:21 ; Admin Dose 2 MG; Start 06/30/16 at 17:30 Propofol (Diprivan) 100 ml @ 2.25 mls/hr Q12H IV ; Start 06/30/16 at 17:30 Acetaminophen (Tylenol Supp) 1,000 mg Q6H PRN [place] Fever Last administered on 04:03; Admin Dose 1,000 MG; Start 06/30/16 at 21:30 Amiodarone HCl (Cordarone) 400 mg BID PO Last administered on 07/05/16 08:33; Admin Dose 400 MG; Start 07/01/16 at 11:00 Aspirin 81 mg 81 mg DAILY NGT Last administered on 07/05/16 08:32; Admin Dose 81 MG; Start 07/02/16 at 09:00 Meropenem 100 ml @ 200 mls/hr Q12 IVPB Last administered on 07/05/16 08:33; Admin Dose 200 MLS/HR; Start 07/02/16 at 13:30 Norepinephrine/ Dextrose (Levophed/D5W) 500 ml @ 1.87 mls/hr TITRATE IV ; Start 07/03/16 at 11:30 Furosemide 40 mg 40 mg Q8H IV Last administered on 07/05/16 12:02; Admin Dose 40 MG; Start 07/03/16 at 21:00 Fentanyl 100 ml @ 2.5 mls/hr TITRATE IV Last administered on 07/05/16 05:47; Admin Dose 10 MLS/HR; Start 07/03/16 at 18:00 Midazolam HCl 50 ml @ 1 mls/hr TITRATE IV Last administered on 07/05/16 11:59 ; Admin Dose 10 MLS/HR; Start 07/03/16 at 18:00; Status Future Hold Midazolam HCl 100 mg/Sodium Chloride 100 ml @ 1 mls/hr TITRATE IV Last administered on 07/04/16 17:56; Admin Dose 10 MLS/HR; Start 07/04/16 at 15:00 Vancomycin HCl (Vancocin) 250 ml @ 125 mls/hr Q8H IVPB Last administered on 11:59; Admin Dose 125 MLS/HR; Start 07/04/16 at 20:00 JANICE HARKINS MD Jul 05, 2016 12:20
--- NOTE | 2016-07-05 12:40 | PN ---
Date/Time of Note Date/Time of Note DATE: 07/05/16 TIME: 12:25 Assessment/Plan VTE Prophylaxis VTE Prophylaxis Intervention: SCD's Lines/Catheters IV [facility] Type [facility]from [facility] Central Line Central line still needed: Yes Urinary Cath still in place: Yes Reason Cath still needed: urinary retention Assessment/Plan Chief Complaint/Hosp Course Assessment/Plan: 36 M with: 1. Status post ventricular fibrillation cardiac arrest with ROSC - s/p hypothermia protocol - Continue ventilator support and pressor support and wean off as tolerated. 2. NSTEMI - F/u cardiology plan re: NSTEMI - for possible LHC in 24 hrs? 3. Vent dependent respiratory failure secondary to cardiac arrest. - f/u pulm rec's, monitor 4. Shock likely septic with a cardiogenic component - Patient had fever 2 nights ago despite abx / f/u final cultures - continue abx 5. Severe systolic dysfunction with EF of 15 to 20% - Continue current medical management including Pepcid / Heparin / aspirin / antibiotics / diuresis 6. Pulmonary edema - monitor 7. Bilateral pneumonia, possibly from aspiration - abx 8. Chronic Tobacco user - educate about cessation when awake 10. Acute kidney injury, resolved. 11. Hyperglycemia : A!C 5.7: resolved 12. Rhabdomyolysis: improving - monitor * Replace electrolytes and closely monitor * Further workup and management per clinical course. Critical Care time = 40 mins Problems: Subjective 24 Hr Interval Summary Free Text/Dictation Pt still intubated, no acute events overnight. Exam/Review of Systems Vital Signs Vitals Vital Signs Date Time Temp Pulse Resp B/P Pulse Ox O2 Delivery O2 Flow Rate FiO2 07/05/16 09:30 85 17 103/71 96 07/05/16 09:15 70 07/05/16 09:00 Mechanical Ventilator 07/05/16 08:00 98.8 Intake and Output 07/04/16 07/04/16 07/05/16 15:00 23:00 07:00 Intake Total 611.50 ml 687.5 ml 798.0 ml Output Total 1600 ml 960 ml 1510 ml Balance -988.50 ml -272.5 ml -712.0 ml Exam Constitutional: alert, other (comfortable on vent) Head: normocephalic Eyes: PERRL ENMT: intubated Respiratory: clear to auscultation Cardiovascular: regular rate and rhythm, No murmurs/extra sounds Gastrointestinal: bowel sounds, non-tender, other (tolerating PEG feeds), soft Genitourinary - Male: other (clarke ) Extremities: No edema Neurological: nl mental status Skin: No rash or lesions Results Result Diagram: 07/05/16 0425 07/05/16 0425 Results 24 hrs Laboratory Tests Test 07/04/16 16:56 07/04/16 17:00 07/04/16 17:39 07/04/16 23:47 Vancomycin Level Trough 17.2 Potassium Level 3.3 L Bedside Glucose 106 94 Test 07/05/16 04:25 07/05/16 05:48 07/05/16 07:00 07/05/16 11:58 White Blood Count 11.7 H Red Blood Count 3.34 L Hemoglobin 9.9 L Hematocrit 31.3 L Mean Corpuscular Volume 93.7 Mean Corpuscular Hemoglobin 29.6 Mean Corpuscular Hemoglobin Concent 31.6 L Red Cell Distribution Width 13.2 Platelet Count 176 # Mean Platelet Volume 9.6 Neutrophils % 72.2 Lymphocytes % 12.1 L Monocytes % 10.0 Eosinophils % 4.4 Basophils % 0.3 Nucleated Red Blood Cells % 0.0 Neutrophils # 8.5 H Lymphocytes # 1.4 Monocytes # 1.2 H Eosinophils # 0.5 Basophils # 0.0 Nucleated Red Blood Cells # 0.0 Sodium Level 141 Potassium Level 3.5 Chloride Level 98 Carbon Dioxide Level 32 H Anion Gap 15 # Blood Urea Nitrogen 14 Creatinine 0.79 Glucose Level 99 Calcium Level 8.3 L Phosphorus Level 3.5 Creatine Kinase 223 H Albumin 3.0 L Bedside Glucose 109 87 Blood Gas Specimen Source Blood arterial Arterial Blood Date Drawn 07/05/2016 7:38:59 AM Arterial Blood pH (Temp corrected) 7.468 H Arterial Blood pCO2 (Temp correct) 47.6 H Arterial Blood pO2 (Temp corrected) 156.2 H Arterial Blood HCO3 33.7 H Arterial Blood Base Excess 8.8 H Arterial Blood Oxygen Saturation 98.7 H Christ Test ACCEPTAB Arterial Blood Gas Puncture Site Right Radial Arterial Blood Carboxyhemoglobin 0.3 Arterial Blood Methemoglobin 0.4 Blood Gas A-a O2 Differential 291.7 H Oxyhemoglobin Percent 98.0 Total Hemoglobin 12.3 Blood Gas Temperature 37.0 Blood Gas Respiration Rate 18.0 Blood Gas Actual Respiration Rate 18 Blood Gas Modality VENT - AC FiO2 70.0 Blood Gas Tidal Volume 550.0 Blood Gas Low PEEP Setting 8.0 Blood Gas Notified Whom JLD Blood Gas Notified Time 07/05/2016 8:22:43 AM Medications Medications Current Medications Famotidine 20 mg 20 mg Q12 IV Last administered on 07/05/16 08:33; Admin Dose 20 MG; Start 06/28/16 at 21:00 Heparin Sodium (Porcine) (Heparin 39394 Units/250 ml) 250 ml @ 0 mls/hr Q24H IV Last administered on 06/30/16 04:31; Admin Dose 8.5 MLS/HR; Start 06/29/16 at 08:30 Heparin Sodium (Porcine) (Heparin (1000 Units/ml)) 4,000 unit PRN PRN IV PENDING LAB VALUE; Start 06/29/16 at 08:30 Meperidine HCl (Demerol) 25 mg Q4H PRN IV shivering post hypothermia pro Last administered on 06/29/16 14:44; Admin Dose 25 MG; Start 06/29/16 at 14:30 Dicyclomine HCl (Bentyl) 20 mg Q6H PRN NGT Hiccups Last administered on 09:54; Admin Dose 20 MG; Start 06/30/16 at 06:30 Insulin Aspart (Novolog Insulin Pen) NOVOLOG *MILD* ALGORI... Q6 SC Last administered on 07/04/16 00:26; Admin Dose 1 UNIT; Start 06/30/16 at 12:00 Miscellaneous Information 1 ea NOTE XX ; Start 06/30/16 at 09:30 Glucose (Glutose) 15 gm Q15M PRN PO DECREASED GLUCOSE; Start 06/30/16 at 09:30 Glucose (Glutose) 22.5 gm Q15M PRN PO DECREASED GLUCOSE; Start 06/30/16 at 09: 30 Dextrose (D50w Syringe) 25 ml Q15M PRN IV DECREASED GLUCOSE; Start 06/30/16 at 09:30 Dextrose (D50w Syringe) 50 ml Q15M PRN IV DECREASED GLUCOSE; Start 06/30/16 at 09:30 Glucagon (Glucagen) 1 mg Q15M PRN IM DECREASED GLUCOSE; Start 06/30/16 at 09:30 Glucose (Glutose) 15 gm Q15M PRN BUCCAL DECREASED GLUCOSE; Start 06/30/16 at 09 :30 Atorvastatin Calcium (Lipitor) 80 mg DAILY PO Last administered on 07/05/16 08 :33; Admin Dose 80 MG; Start 06/30/16 at 09:30 Acetaminophen 650 mg 650 mg Q6 PRN NGT PAIN AND OR ELEVATED TEMP Last administered on 07/03/16 21:11; Admin Dose 650 MG; Start 06/30/16 at 11:00 Dobutamine HCl/ Dextrose 250 ml @ 11.25 mls/ hr TITRATE IV Last administered on 07/04/16 18:48; Admin Dose 13.5 MLS/HR; Start 06/30/16 at 16:30 Lorazepam 2 mg 2 mg Q1HWA PRN IV AGITATION Last administered on 07/05/16 11:21 ; Admin Dose 2 MG; Start 06/30/16 at 17:30 Propofol (Diprivan) 100 ml @ 2.25 mls/hr Q12H IV ; Start 06/30/16 at 17:30 Acetaminophen (Tylenol Supp) 1,000 mg Q6H PRN RI Fever Last administered on 04:03; Admin Dose 1,000 MG; Start 06/30/16 at 21:30 Amiodarone HCl (Cordarone) 400 mg BID PO Last administered on 07/05/16 08:33; Admin Dose 400 MG; Start 07/01/16 at 11:00 Aspirin 81 mg 81 mg DAILY NGT Last administered on 07/05/16 08:32; Admin Dose 81 MG; Start 07/02/16 at 09:00 Meropenem 100 ml @ 200 mls/hr Q12 IVPB Last administered on 07/05/16 08:33; Admin Dose 200 MLS/HR; Start 07/02/16 at 13:30 Norepinephrine/ Dextrose (Levophed/D5W) 500 ml @ 1.87 mls/hr TITRATE IV ; Start 07/03/16 at 11:30 Furosemide 40 mg 40 mg Q8H IV Last administered on 07/05/16 12:02; Admin Dose 40 MG; Start 07/03/16 at 21:00 Fentanyl 100 ml @ 2.5 mls/hr TITRATE IV Last administered on 4/25/17at 05:47; Admin Dose 10 MLS/HR; Start 07/03/16 at 18:00 Midazolam HCl 50 ml @ 1 mls/hr TITRATE IV Last administered on 07/05/16 11:59 ; Admin Dose 10 MLS/HR; Start 07/03/16 at 18:00; Status Future Hold Midazolam HCl 100 mg/Sodium Chloride 100 ml @ 1 mls/hr TITRATE IV Last administered on 07/04/16 17:56; Admin Dose 10 MLS/HR; Start 07/04/16 at 15:00 Vancomycin HCl (Vancocin) 250 ml @ 125 mls/hr Q8H IVPB Last administered on 11:59; Admin Dose 125 MLS/HR; Start 07/04/16 at 20:00 BLACK CALVO Jul 05, 2016 12:37
[2016-07-05] MEDS: DOBUTamine/D5W 1 MG/ML DRIP 250 ML IV SCH (13:49)
--- NOTE | 2016-07-05 17:20 | CONS ---
Date/Time of Note Date/Time of Note DATE: 07/05/16 TIME: 17:17 Assessment/Plan Assessment/Plan Chief Complaint/Hosp Course ID PROGRESS NOTE TOTAL ABX DAY #6 => Vanco IV, Merrem #4 Zosyn->DC'd 07/02 24H INTERVAL SUMMARY * Clinically status quo -- low grade temps, WBC 11.7 --- Non-communicative-> Orally intubated on the Vent * CXR 07/05/16: Diffuse bilateral air space opacities and consolidations are again noted which appear mildly increased on the left and mildly decreased on the right. * s/p fevers resolved after => Zosyn changed to Merrem was spiking temps on Zosyn * ALL Micro on admission (-) * 06/28/16 Blood/Urine Cx (-), 07/01/16 Influenza A/B screen (-) * SPUTUM CX: GRAM STAIN Final POLYMORPH. LEUKOCYTE 3+ . NO ORGANISM SEEN RESPIRATORY CULTURE Final NO GROWTH AFTER 2 DAYS * CXR 07/04/16:Mildly increased prominence of diffuse bilateral air space opacities and consolidations. PHYSICAL EXAMINATION: GENERAL: Overweight M, noncommunicative HEENT: ETT/NGT -> Secure NECK: Supple, trach-> midline CHEST: Equal chest rise bilaterally, scattered rhonchi HEART: Pulse RRR ABDOMEN: Soft, BX (+) EXTREMITIES: Warm, (+)Tattoos legs SKIN: Warm, dry ID ASSESSMENT: 36 yo [place] M found down in field 06/28/16 witnessed arrest->CPR started by witnesses in field immediately 1. Status post ventricular fibrillation cardiac arrest with ROSC. * s/p hypothermia protocol 2. NSTEMI 3. Acute pulmonary edema w/severe systolic dysfunction with EF of 15 to 20% . 4. Shock likely septic with a cardiogenic component : 5. Sepsis vs SIRS w/Fevers 102.+, leukocytosis => ASP HCAP * BCx & Urine Cx on admission (-) * Repeat Blood, urine, respiratory cx pending 6. Vent dependent respiratory failure secondary to cardiac arrest.Pulmonary edema. 7. Bilateral pneumonia, possibly from aspiration. * CXRs last 2 days w/ progression: Mildly increased prominence of diffuse bilateral air space opacities and consolidations. 8. Acute kidney injury, resolved. 9. Rhabdomyolysis: improving 10. Chronic Tobacco user 11. Hyperglycemia : A1C 5.7: resolved ( )MRSA Nares = pending INVASIVES: * ETT, NGT, FC, R-IJ TLC ABX ALLERGIES: KNDA CURRENT ABX: TOTAL ABX DAY #6=> Vanco IV #6, Merrem #4 Zosyn-> DC'd 07/02 ID RECOMMENDATIONS: 1. Repeat BCx, UA, Urine, respiratory cx (-) 24H * MRSA screen still pending? 2. Continue ABX ==He improved w/addition of Merrem -- continue for now and taper when CXR improves soon . . Problems: Consultation Date/Type/Reason Admit Date/Time Jun 28, 2016 at 20:48 Initial Consult Date 06/29/16 Type of Consultation: ID Referring Provider: CHRISTINA JOSEPH Exam/Review of Systems Vital Signs Vitals Vital Signs Date Time Temp Pulse Resp B/P Pulse Ox O2 Delivery O2 Flow Rate FiO2 07/05/16 16:30 86 16 115/74 94 07/05/16 16:00 99.2 Mechanical Ventilator 07/05/16 16:00 40 Intake and Output 07/04/16 07/04/16 07/05/16 15:00 23:00 07:00 Intake Total 611.50 ml 687.5 ml 798.0 ml Output Total 1600 ml 960 ml 1510 ml Balance -988.50 ml -272.5 ml -712.0 ml Results Result Diagram: 07/05/16 0425 07/05/16 0425 Results 24 hrs Laboratory Tests Test 07/04/16 17:39 07/04/16 23:47 07/05/16 04:25 07/05/16 05:48 Bedside Glucose 106 94 109 White Blood Count 11.7 H Red Blood Count 3.34 L Hemoglobin 9.9 L Hematocrit 31.3 L Mean Corpuscular Volume 93.7 Mean Corpuscular Hemoglobin 29.6 Mean Corpuscular Hemoglobin Concent 31.6 L Red Cell Distribution Width 13.2 Platelet Count 176 # Mean Platelet Volume 9.6 Neutrophils % 72.2 Lymphocytes % 12.1 L Monocytes % 10.0 Eosinophils % 4.4 Basophils % 0.3 Nucleated Red Blood Cells % 0.0 Neutrophils # 8.5 H Lymphocytes # 1.4 Monocytes # 1.2 H Eosinophils # 0.5 Basophils # 0.0 Nucleated Red Blood Cells # 0.0 Sodium Level 141 Potassium Level 3.5 Chloride Level 98 Carbon Dioxide Level 32 H Anion Gap 15 # Blood Urea Nitrogen 14 Creatinine 0.79 Glucose Level 99 Calcium Level 8.3 L Phosphorus Level 3.5 Creatine Kinase 223 H Albumin 3.0 L Test 07/05/16 07:00 07/05/16 11:58 Blood Gas Specimen Source Blood arterial Arterial Blood Date Drawn 07/05/2016 7:38:59 AM Arterial Blood pH (Temp corrected) 7.468 H Arterial Blood pCO2 (Temp correct) 47.6 H Arterial Blood pO2 (Temp corrected) 156.2 H Arterial Blood HCO3 33.7 H Arterial Blood Base Excess 8.8 H Arterial Blood Oxygen Saturation 98.7 H Christ Test ACCEPTAB Arterial Blood Gas Puncture Site Right Radial Arterial Blood Carboxyhemoglobin 0.3 Arterial Blood Methemoglobin 0.4 Blood Gas A-a O2 Differential 291.7 H Oxyhemoglobin Percent 98.0 Total Hemoglobin 12.3 Blood Gas Temperature 37.0 Blood Gas Respiration Rate 18.0 Blood Gas Actual Respiration Rate 18 Blood Gas Modality VENT - AC FiO2 70.0 Blood Gas Tidal Volume 550.0 Blood Gas Low PEEP Setting 8.0 Blood Gas Notified Whom JLD Blood Gas Notified Time 07/05/2016 8:22:43 AM Bedside Glucose 87 Medications Medications Current Medications Famotidine 20 mg 20 mg Q12 IV Last administered on 07/05/16 08:33; Admin Dose 20 MG; Start 06/28/16 at 21:00 Heparin Sodium (Porcine) (Heparin 45948 Units/250 ml) 250 ml @ 0 mls/hr Q24H IV Last administered on 06/30/16 04:31; Admin Dose 8.5 MLS/HR; Start 06/29/16 at 08:30 Heparin Sodium (Porcine) (Heparin (1000 Units/ml)) 4,000 unit PRN PRN IV PENDING LAB VALUE; Start 06/29/16 at 08:30 Meperidine HCl (Demerol) 25 mg Q4H PRN IV shivering post hypothermia pro Last administered on 06/29/16 14:44; Admin Dose 25 MG; Start 06/29/16 at 14:30 Dicyclomine HCl (Bentyl) 20 mg Q6H PRN NGT Hiccups Last administered on 09:54; Admin Dose 20 MG; Start 06/30/16 at 06:30 Insulin Aspart (Novolog Insulin Pen) NOVOLOG *MILD* ALGORI... Q6 SC Last administered on 07/04/16 00:26; Admin Dose 1 UNIT; Start 06/30/16 at 12:00 Miscellaneous Information 1 ea NOTE XX ; Start 06/30/16 at 09:30 Glucose (Glutose) 15 gm Q15M PRN PO DECREASED GLUCOSE; Start 06/30/16 at 09:30 Glucose (Glutose) 22.5 gm Q15M PRN PO DECREASED GLUCOSE; Start 06/30/16 at 09: 30 Dextrose (D50w Syringe) 25 ml Q15M PRN IV DECREASED GLUCOSE; Start 06/30/16 at 09:30 Dextrose (D50w Syringe) 50 ml Q15M PRN IV DECREASED GLUCOSE; Start 06/30/16 at 09:30 Glucagon (Glucagen) 1 mg Q15M PRN IM DECREASED GLUCOSE; Start 06/30/16 at 09:30 Glucose (Glutose) 15 gm Q15M PRN BUCCAL DECREASED GLUCOSE; Start 06/30/16 at 09 :30 Atorvastatin Calcium (Lipitor) 80 mg DAILY PO Last administered on 07/05/16 08 :33; Admin Dose 80 MG; Start 06/30/16 at 09:30 Acetaminophen 650 mg 650 mg Q6 PRN NGT PAIN AND OR ELEVATED TEMP Last administered on 07/03/16 21:11; Admin Dose 650 MG; Start 06/30/16 at 11:00 Dobutamine HCl/ Dextrose 250 ml @ 11.25 mls/ hr TITRATE IV Last administered on 07/05/16 13:49; Admin Dose 13.5 MLS/HR; Start 06/30/16 at 16:30 Lorazepam 2 mg 2 mg Q1HWA PRN IV AGITATION Last administered on 07/05/16 17:09 ; Admin Dose 2 MG; Start 06/30/16 at 17:30 Propofol (Diprivan) 100 ml @ 2.25 mls/hr Q12H IV ; Start 06/30/16 at 17:30 Acetaminophen (Tylenol Supp) 1,000 mg Q6H PRN MD Fever Last administered on 04:03; Admin Dose 1,000 MG; Start 06/30/16 at 21:30 Amiodarone HCl (Cordarone) 400 mg BID PO Last administered on 07/05/16 08:33; Admin Dose 400 MG; Start 07/01/16 at 11:00 Aspirin 81 mg 81 mg DAILY NGT Last administered on 07/05/16 08:32; Admin Dose 81 MG; Start 07/02/16 at 09:00 Meropenem 100 ml @ 200 mls/hr Q12 IVPB Last administered on 07/05/16 08:33; Admin Dose 200 MLS/HR; Start 07/02/16 at 13:30 Norepinephrine/ Dextrose (Levophed/D5W) 500 ml @ 1.87 mls/hr TITRATE IV ; Start 07/03/16 at 11:30 Furosemide 40 mg 40 mg Q8H IV Last administered on 07/05/16 12:02; Admin Dose 40 MG; Start 07/03/16 at 21:00 Fentanyl 100 ml @ 2.5 mls/hr TITRATE IV Last administered on 07/05/16 16:40; Admin Dose 10 MLS/HR; Start 07/03/16 at 18:00 Midazolam HCl 50 ml @ 1 mls/hr TITRATE IV Last administered on 07/05/16 11:59 ; Admin Dose 10 MLS/HR; Start 07/03/16 at 18:00; Status Future Hold Midazolam HCl 100 mg/Sodium Chloride 100 ml @ 1 mls/hr TITRATE IV Last administered on 07/04/16 17:56; Admin Dose 10 MLS/HR; Start 07/04/16 at 15:00 Vancomycin HCl (Vancocin) 250 ml @ 125 mls/hr Q8H IVPB Last administered on 11:59; Admin Dose 125 MLS/HR; Start 07/04/16 at 20:00 STONE NUGENT NP Jul 05, 2016 17:20
[2016-07-05] MEDS: MIDAZOLAM DRIP 1 MG/ML in NS 100 ML IV SCH (18:16)
[2016-07-05] MEDS: ACETAMINOPHEN 650MG/20.3ML CUP NGT PRN (21:05)
[2016-07-06] VITALS (65 sets, daily range): BP systolic 86–154; BP diastolic 47–101; PULSE 54–98; RESP 8–38
[2016-07-06] MEDS: FENTAnyl (DRIP) 1000 mcg/100mL 100 ML IV SCH ×2 (03:17→13:56)
[2016-07-06] MEDS: VANCOMYCIN 1 GM in NS 250 ML IVPB SCH ×3 (04:41→20:14)
[2016-07-06] MEDS: MIDAZOLAM DRIP 1 MG/ML in NS 100 ML IV SCH (04:46)
[2016-07-06] MEDS: PROPOFOL 100 ML IV SCH ×4 (05:30→21:31)
[2016-07-06] MEDS: FUROSEMIDE 40 MG INJ IV SCH ×3 (05:32→20:14)
[2016-07-06] MEDS: INSULIN ASPART [NOVOLOG] 3 ML PEN SC SCH (05:36)
[2016-07-06] MEDS: LORAZEPAM 2 MG INJ IV PRN ×2 (07:53→20:37)
[2016-07-06] MEDS: HEPARIN 25000 UNITS/D5W 250 ML IV SCH (07:56)
--- NOTE | 2016-07-06 08:11 | RADRPT ---
PROCEDURE: XR Chest. CLINICAL INDICATION: ETT placement verification TECHNIQUE: Single frontal view of the chest was obtained. COMPARISON: Chest x-ray from 07/06/2016 at 06:27 hours FINDINGS: The tip of an endotracheal tube is again noted 3.3 cm above the tabatha. An enteric tube is again noted in the stomach. The right internal jugular central venous catheter is again noted with its tip in the proximal SVC. There is stable cardiomegaly and mild congestive changes. Airspace opacities involving primarily the left lung are mildly less prominent, possibly due to impr martín aeration. There is no significant pleural effusion or pneumothorax. IMPRESSION: Mildly decreased prominence of airspace opacity in the left lung, possibly due to improved aeration. Lines and support tubes are unchanged. RPTAT: EE Physician Carrie Date Time Electronically viewed and signed by Physician Carrie on 07/06/2016 08:11 /
--- NOTE | 2016-07-06 08:13 | RADRPT ---
PROCEDURE: XR Chest. CLINICAL INDICATION: pneumonia TECHNIQUE: Single frontal view of the chest was obtained. COMPARISON: Chest x-ray from 07/05/2016 FINDINGS: The endotracheal tube, enteric tube, and right IJ central venous line are unchanged. There is stable mild cardiomegaly and congestive changes. There is decreased prominence of air space opacities in the left lung suggestive of an improving pne umonia. IMPRESSION: Decreased prominence of air space opacities in the left lung suggestive of an improving pneumonia. Stable mild cardiomegaly and congestive changes. Lines and support tubes are unchanged. RPTAT: EE Physician Carrie Date Time Electronically viewed and signed by Physician Carrie on 07/06/2016 08:12 /
[2016-07-06 08:55] LABS: CALCIUM 8.5 mg/dl (8.4-10.2); CREATININE 0.78 mg/dl (0.61-1.24); POTASSIUM 3.4 mmol/L (3.5-5.1)
[2016-07-06] MEDS ORDERED: HEPARIN 1000 UNITS/ML 10 ML INJ ONE (09:19)
[2016-07-06] MEDS ORDERED: VERAPAMIL 5 MG INJ ONE (09:19)
[2016-07-06] MEDS ORDERED: NITROGLYCERIN (IC) 100 MCG/ML INJ ONE (09:19)
[2016-07-06] MEDS ORDERED: IODIXANOL LOCM 100 ML BTL ONE (10:09)
[2016-07-06] MEDS ORDERED: LIDOCAINE 1% (MDV) 20 ML INJ ONE (10:09)
--- NOTE | 2016-07-06 10:24 | CONS ---
Date/Time of Note Date/Time of Note DATE: 07/06/16 TIME: 10:22 Consult Date/Type/Reason Admit Date/Time Jun 28, 2016 at 20:48 Initial Consult Date 06/29/16 Type of Consultation: pulmonary ICU Ordering Provider: CHRISTINA JOSEPH Subjective Discussed with nursing staff. Significant agitation off sedation. Currently hemodynamically stable. Cardiac catheterization is morning with possible intervention if needed Objective Vital Signs Date Time Temp Pulse Resp B/P Pulse Ox O2 Delivery O2 Flow Rate FiO2 07/06/16 08:00 73 07/06/16 07:25 18 100 40 07/06/16 06:00 100/64 07/06/16 05:30 Mechanical Ventilator 07/06/16 04:00 98.1 Intake and Output 07/05/16 07/05/16 07/06/16 15:00 23:00 07:00 Intake Total 618.0 ml 905.5 ml 246.5 ml Output Total 2455 ml 1050 ml 1150 ml Balance -1837.0 ml -144.5 ml -903.5 ml Exam PHYSICAL EXAMINATION GENERAL: Young gentleman intubated on mechanical ventilation appears comfortable at rest VITAL SIGNS: see below. HEENT: Pupils equal, round, and reactive to light. CARDIAC: S1, S2, tachycardia. CHEST: Diminished air entry bilaterally. ABDOMEN: Mildly distended. Bowel sounds present no guarding or rebound. EXTREMITIES: No cyanosis, clubbing or edema. NEUROLOGIC: Unable to assess Results/Medications Result Diagram: 07/05/16 0425 07/06/16 0830 Results 24 hrs Chest x-ray Ongoing pulmonary edema mild improvement in the right lung Laboratory Tests Test 07/05/16 11:58 07/05/16 17:45 07/05/16 23:49 07/06/16 05:36 Bedside Glucose 87 128 92 113 Test 07/06/16 08:30 Sodium Level 138 Potassium Level 3.4 L Chloride Level 99 Carbon Dioxide Level 33 H Anion Gap 9 # Blood Urea Nitrogen 16 Creatinine 0.78 Glucose Level 106 Calcium Level 8.5 Medications Current Medications Famotidine 20 mg 20 mg Q12 IV Last administered on 07/05/16t 20:57; Admin Dose 20 MG; Start 06/28/16 at 21:00 Heparin Sodium (Porcine) (Heparin 76961 Units/250 ml) 250 ml @ 0 mls/hr Q24H IV Last administered on 06/30/16 04:31; Admin Dose 8.5 MLS/HR; Start 06/29/16 at 08:30 Heparin Sodium (Porcine) (Heparin (1000 Units/ml)) 4,000 unit PRN PRN IV PENDING LAB VALUE; Start 06/29/16 at 08:30 Meperidine HCl (Demerol) 25 mg Q4H PRN IV shivering post hypothermia pro Last administered on 06/29/16 14:44; Admin Dose 25 MG; Start 06/29/16 at 14:30 Dicyclomine HCl (Bentyl) 20 mg Q6H PRN NGT Hiccups Last administered on 09:54; Admin Dose 20 MG; Start 06/30/16 at 06:30 Insulin Aspart (Novolog Insulin Pen) NOVOLOG *MILD* ALGORI... Q6 SC Last administered on 07/04/16 00:26; Admin Dose 1 UNIT; Start 06/30/16 at 12:00 Miscellaneous Information 1 ea NOTE XX ; Start 06/30/16 at 09:30 Glucose (Glutose) 15 gm Q15M PRN PO DECREASED GLUCOSE; Start 06/30/16 at 09:30 Glucose (Glutose) 22.5 gm Q15M PRN PO DECREASED GLUCOSE; Start 06/30/16 at 09: 30 Dextrose (D50w Syringe) 25 ml Q15M PRN IV DECREASED GLUCOSE; Start 06/30/16 at 09:30 Dextrose (D50w Syringe) 50 ml Q15M PRN IV DECREASED GLUCOSE; Start 06/30/16 at 09:30 Glucagon (Glucagen) 1 mg Q15M PRN IM DECREASED GLUCOSE; Start 06/30/16 at 09:30 Glucose (Glutose) 15 gm Q15M PRN BUCCAL DECREASED GLUCOSE; Start 06/30/16 at 09 :30 Atorvastatin Calcium (Lipitor) 80 mg DAILY PO Last administered on 07/05/16 08 :33; Admin Dose 80 MG; Start 06/30/16 at 09:30 Acetaminophen 650 mg 650 mg Q6 PRN NGT PAIN AND OR ELEVATED TEMP Last administered on 07/05/16 21:05; Admin Dose 650 MG; Start 06/30/16 at 11:00 Dobutamine HCl/ Dextrose 250 ml @ 11.25 mls/ hr TITRATE IV Last administered on 07/05/16 13:49; Admin Dose 13.5 MLS/HR; Start 06/30/16 at 16:30 Lorazepam 2 mg 2 mg Q1HWA PRN IV AGITATION Last administered on 07/06/16 07:53 ; Admin Dose 2 MG; Start 06/30/16 at 17:30 Propofol (Diprivan) 100 ml @ 2.25 mls/hr Q12H IV ; Start 06/30/16 at 17:30 Acetaminophen (Tylenol Supp) 1,000 mg Q6H PRN MA Fever Last administered on 04:03; Admin Dose 1,000 MG; Start 06/30/16 at 21:30 Amiodarone HCl (Cordarone) 400 mg BID PO Last administered on 07/05/16 20:56; Admin Dose 400 MG; Start 07/01/16 at 11:00 Aspirin 81 mg 81 mg DAILY NGT Last administered on 07/05/16 08:32; Admin Dose 81 MG; Start 07/02/16 at 09:00 Meropenem 100 ml @ 200 mls/hr Q12 IVPB Last administered on 07/05/16 20:53; Admin Dose 200 MLS/HR; Start 07/02/16 at 13:30 Norepinephrine/ Dextrose (Levophed/D5W) 500 ml @ 1.87 mls/hr TITRATE IV ; Start 07/03/16 at 11:30 Furosemide 40 mg 40 mg Q8H IV Last administered on 07/06/16 05:32; Admin Dose 40 MG; Start 07/03/16 at 21:00 Fentanyl 100 ml @ 2.5 mls/hr TITRATE IV Last administered on 07/06/16 03:17; Admin Dose 10 MLS/HR; Start 07/03/16 at 18:00 Midazolam HCl 50 ml @ 1 mls/hr TITRATE IV Last administered on 07/05/16 11:59 ; Admin Dose 10 MLS/HR; Start 07/03/16 at 18:00; Status Future Hold Midazolam HCl 100 mg/Sodium Chloride 100 ml @ 1 mls/hr TITRATE IV Last administered on 07/06/16 04:46; Admin Dose 10 MLS/HR; Start 07/04/16 at 15:00 Vancomycin HCl (Vancocin) 250 ml @ 125 mls/hr Q8H IVPB Last administered on t 04:41; Admin Dose 125 MLS/HR; Start 07/04/16 at 20:00 Miscellaneous Information (*Rx Drug Level Order Reminder*) VANCOMYCIN TROUGH AT 1100 ONCE ONCE XX ; Start 07/06/16 at 11:00; Stop 07/06/16 at 11:01 Assessment/Plan Chief Complaint/Hosp Course Assessment 1. Cardiopulmonary arrest. Ventricular arrhythmia following spontaneous return of circulation. Ejection fraction 15% cardiogenic shock with elevated troponins cardiac catheterization this morning. 2. Hypoxemic respiratory failure evidence of pulmonary edema on chest x-ray 3. Possible aspiration pneumonia 4. Resolving sepsis 5. Hypokalemia Plan 1. Continue cardiology recommendations possible coronary intervention with without intra-aortic balloon pump 2. Diuresis with tolerated 3. Mechanical ventilation decrease PEEP and then FiO2 as tolerated 4. Broad-spectrum antibiotics for underlying sepsis 5. DVT and GI prophylaxis Disposition Continue ICU Discussed with nursing staff Critical care time 40 minutes Problems: ELIZABETH STERN MD, [facility] Jul 06, 2016 10:23
[2016-07-06] MEDS ORDERED: ACETAMINOPHEN 325 MG TAB PO PRN (10:30)
[2016-07-06] MEDS ORDERED: ONDANSETRON 4 MG INJ IV PRN (10:30)
[2016-07-06] MEDS ORDERED: AL HYDROX/MG HYDROX/SIMETH 30 ML CUP PO PRN (10:30)
[2016-07-06] MEDS: DOBUTamine/D5W 1 MG/ML DRIP 250 ML IV SCH (10:40)
--- NOTE | 2016-07-06 10:44 | CONS ---
Date/Time of Note Date/Time of Note DATE: 07/06/16 TIME: 10:39 Assessment/Plan Assessment/Plan Chief Complaint/Hosp Course IMPRESSION: 1. Positive troponin, consistent with a non-ST elevation myocardial infarction. -Peaked at 40 and now downtrending significantly. Now post-op s/p diagnostic [facility] 07/06 with 3vd 100% RCA/LCX both seen via collateral flow and 90-95% prox LAD 2. Status post cardiac arrest. 3. Cardiomyopathy, with a severely depressed left ventricular ejection fraction of approximately 15% to 20% by echo on this admission. 4. Respiratory failure. Status post intubation.-currently improving o2 sats 5. Ventricular fibrillation arrest, witnessed, status post defibrillator x1. 6. Encephalopathy. 7. Leukocytosis. 8. Anemia. 9. Hypotension.-on dobutamine alone now 10.Fevers Recc: -Tele -Continue dobutamine -Continue asa -Resume heparin IV -Continue lasix diuresis and follow volume status closely -Follow for any recurrent bleeding -Continue PO amiodarone -Continue abx's and f/u cx data -Re-assess EF with echo -Consideration fo cabg versus high risk mutivessel PCI with ventricular support Problems: Consultation Date/Type/Reason Admit Date/Time Jun 28, 2016 at 20:48 Initial Consult Date 06/29/16 Type of Consultation: Cardiology Reason for Consultation Acute OK/shock Referring Provider: CHRISTINA JOSEPH Exam/Review of Systems Vital Signs Vitals Vital Signs Date Time Temp Pulse Resp B/P Pulse Ox O2 Delivery O2 Flow Rate FiO2 07/06/16 08:00 73 07/06/16 07:25 18 100 40 07/06/16 06:00 100/64 07/06/16 05:30 Mechanical Ventilator 07/06/16 04:00 98.1 Intake and Output 07/05/16 07/05/16 07/06/16 15:00 23:00 07:00 Intake Total 618.0 ml 905.5 ml 246.5 ml Output Total 2455 ml 1050 ml 1150 ml Balance -1837.0 ml -144.5 ml -903.5 ml Exam Review of Systems: CONSTITUTIONAL: No fevers, chills. PULMONARY: intubated CARDIOVASCULAR: No chest pain/palpitations GASTROINTESTINAL: No nausea/vomiting. GENITOURINARY: No hematuria/dysuria. MUSCULOSKELETAL: No myagias/arthalgias. PSYCHIATRIC: The patient denies depression. NEUROLOGIC: No weakness Constitutional: other (sedated/encephalopathic) Psych: no complaints Head: normocephalic ENMT: mucosa pink and moist Neck: jvd (9 cm water), supple Respiratory: other (upper airway rhoncherous sounds) Cardiovascular: regular rate and rhythm Gastrointestinal: non-tender, soft Musculoskeletal: muscle tone (none) Extremities: edema (trace/B) Neurological: confused, other (sedated/encephalopathic) Results Result Diagram: 07/05/16 0425 07/06/16 0830 Results 24 hrs Laboratory Tests Test 07/05/16 11:58 07/05/16 17:45 07/05/16 23:49 07/06/16 05:36 Bedside Glucose 87 128 92 113 Test 07/06/16 08:30 Sodium Level 138 Potassium Level 3.4 L Chloride Level 99 Carbon Dioxide Level 33 H Anion Gap 9 # Blood Urea Nitrogen 16 Creatinine 0.78 Glucose Level 106 Calcium Level 8.5 Medications Medications Current Medications Famotidine 20 mg 20 mg Q12 IV Last administered on 07/05/16 20:57; Admin Dose 20 MG; Start 06/28/16 at 21:00 Heparin Sodium (Porcine) (Heparin 85997 Units/250 ml) 250 ml @ 0 mls/hr Q24H IV Last administered on 06/30/16 04:31; Admin Dose 8.5 MLS/HR; Start 06/29/16 at 08:30 Heparin Sodium (Porcine) (Heparin (1000 Units/ml)) 4,000 unit PRN PRN IV PENDING LAB VALUE; Start 06/29/16 at 08:30 Meperidine HCl (Demerol) 25 mg Q4H PRN IV shivering post hypothermia pro Last administered on 06/29/16 14:44; Admin Dose 25 MG; Start 06/29/16 at 14:30 Dicyclomine HCl (Bentyl) 20 mg Q6H PRN NGT Hiccups Last administered on 09:54; Admin Dose 20 MG; Start 06/30/16 at 06:30 Insulin Aspart (Novolog Insulin Pen) NOVOLOG *MILD* ALGORI... Q6 SC Last administered on 07/04/16 00:26; Admin Dose 1 UNIT; Start 06/30/16 at 12:00 Miscellaneous Information 1 ea NOTE XX ; Start 06/30/16 at 09:30 Glucose (Glutose) 15 gm Q15M PRN PO DECREASED GLUCOSE; Start 06/30/16 at 09:30 Glucose (Glutose) 22.5 gm Q15M PRN PO DECREASED GLUCOSE; Start 06/30/16 at 09: 30 Dextrose (D50w Syringe) 25 ml Q15M PRN IV DECREASED GLUCOSE; Start 06/30/16 at 09:30 Dextrose (D50w Syringe) 50 ml Q15M PRN IV DECREASED GLUCOSE; Start 06/30/16 at 09:30 Glucagon (Glucagen) 1 mg Q15M PRN IM DECREASED GLUCOSE; Start 06/30/16 at 09:30 Glucose (Glutose) 15 gm Q15M PRN BUCCAL DECREASED GLUCOSE; Start 06/30/16 at 09 :30 Atorvastatin Calcium (Lipitor) 80 mg DAILY PO Last administered on 07/05/16 08 :33; Admin Dose 80 MG; Start 06/30/16 at 09:30 Acetaminophen 650 mg 650 mg Q6 PRN NGT PAIN AND OR ELEVATED TEMP Last administered on 07/05/16 21:05; Admin Dose 650 MG; Start 06/30/16 at 11:00 Dobutamine HCl/ Dextrose 250 ml @ 11.25 mls/ hr TITRATE IV Last administered on 07/05/16 13:49; Admin Dose 13.5 MLS/HR; Start 06/30/16 at 16:30 Lorazepam 2 mg 2 mg Q1HWA PRN IV AGITATION Last administered on 07/06/16 07:53 ; Admin Dose 2 MG; Start 06/30/16 at 17:30 Propofol (Diprivan) 100 ml @ 2.25 mls/hr Q12H IV ; Start 06/30/16 at 17:30 Acetaminophen (Tylenol Supp) 1,000 mg Q6H PRN AL Fever Last administered on 04:03; Admin Dose 1,000 MG; Start 06/30/16 at 21:30 Amiodarone HCl (Cordarone) 400 mg BID PO Last administered on 07/05/16 20:56; Admin Dose 400 MG; Start 07/01/16 at 11:00 Aspirin 81 mg 81 mg DAILY NGT Last administered on 07/05/16 08:32; Admin Dose 81 MG; Start 07/02/16 at 09:00 Meropenem 100 ml @ 200 mls/hr Q12 IVPB Last administered on 07/05/16 20:53; Admin Dose 200 MLS/HR; Start 07/02/16 at 13:30 Norepinephrine/ Dextrose (Levophed/D5W) 500 ml @ 1.87 mls/hr TITRATE IV ; Start 07/03/16 at 11:30 Furosemide 40 mg 40 mg Q8H IV Last administered on 07/06/16 05:32; Admin Dose 40 MG; Start 07/03/16 at 21:00 Fentanyl 100 ml @ 2.5 mls/hr TITRATE IV Last administered on 07/06/16 03:17; Admin Dose 10 MLS/HR; Start 07/03/16 at 18:00 Midazolam HCl 50 ml @ 1 mls/hr TITRATE IV Last administered on 07/05/16 11:59 ; Admin Dose 10 MLS/HR; Start 07/03/16 at 18:00; Status Future Hold Midazolam HCl 100 mg/Sodium Chloride 100 ml @ 1 mls/hr TITRATE IV Last administered on 07/06/16 04:46; Admin Dose 10 MLS/HR; Start 07/04/16 at 15:00 Vancomycin HCl (Vancocin) 250 ml @ 125 mls/hr Q8H IVPB Last administered on 04:41; Admin Dose 125 MLS/HR; Start 07/04/16 at 20:00 Miscellaneous Information (*Rx Drug Level Order Reminder*) VANCOMYCIN TROUGH AT 1100 ONCE ONCE XX ; Start 07/06/16 at 11:00; Stop 07/06/16 at 11:01 Acetaminophen (Tylenol Tab) 650 mg Q4H PRN PO NON-CARDIAC PAIN LEVEL (1-3); Start 07/06/16 at 10:30 Morphine Sulfate (morphine) 2 mg Q2H PRN IV FOR NON CARDIAC PAIN (4-10); Start 07/06/16 at 10:30 Al Hydrox/Mg Hydrox/Simethicone (Mag-Al Plus) 30 ml Q4H PRN PO GASTROINTESTINAL UPSET; Start 07/06/16 at 10:30 Ondansetron HCl (Zofran Inj) 4 mg Q4H PRN IV NAUSEA AND/OR VOMITING; Start at 10:30 ELIGIO TYSON Jul 06, 2016 10:44
[2016-07-06] MEDS: ASPIRIN 81 MG TAB NGT SCH (10:57)
[2016-07-06] MEDS: AMIODARONE 200 MG TAB PO SCH ×2 (10:57→21:00)
[2016-07-06] MEDS: ATORVASTATIN 80 MG TAB PO SCH (10:57)
[2016-07-06] MEDS: FAMOTIDINE 20 MG INJ IV SCH ×2 (10:58→20:14)
[2016-07-06] MEDS: MEROPENEM 1 GM/100 ML (PMX) 100 ML IVPB SCH ×2 (10:58→20:14)
--- NOTE | 2016-07-06 11:30 | CARRPT ---
DATE OF PROCEDURE: 07/06/2016 TYPE OF PROCEDURE: 1. Left heart catheterization. 2. Coronary angiography. ATTENDING PHYSICIAN: Eligio Chow MD REFERRING PHYSICIAN: Dr. Joseph from the hospitalist service. INDICATION: Acute myocardial infarction and cardiac arrest. TYPE OF ANESTHESIA: General and local. BRIEF HISTORY AND HOSPITAL COURSE: Mr. Villatoro is a 36-year-old male with history of hypertension and dyslipidemia who initially presented status post cardiac arrest. The patient has been on hypothermic protocol, had positive troponins that peaked at 40. Given these findings, the patient had been brought to the cardiac laboratory veterinarian in order to assess for the possibility of significant obstructive coronary artery disease lending to his symptoms of cardiac arrest and acute myocardial infarction and shock state. PROCEDURE: After informed consent was obtained, the patient was brought to the [facility] cardiac catheterization lab where his right radial area was prepped and draped in usual sterile fashion. Lidocaine 2% was infiltrated into right radial artery in order to achieve adequate anesthesia. Using modified Seldinger technique, the radial artery was cannulated and a 6- American arterial sheath was placed. A 6-American JL3 catheter was used to cannulate the left main coronary ostium. With contrast injection, multiple views of the left coronary arterial system were obtained. The JL3 was removed over the guidewire and a JR4 was used to cannulate the right coronary arterial ostium. With contrast injection, multiple views of the right coronary arterial system were obtained. JR4 was removed over a guidewire, and given the findings of multivessel obstructive coronary artery disease, we decided to terminate the procedure at this time. The patient additionally had been given a radial cocktail of 5000 units of heparin, 2.5 of verapamil and 200 of IC nitroglycerin. FINDINGS: Coronary angiography. Right coronary artery proximally is a 2.5 mm vessel and in its mid portion, it becomes 100% occluded. The left main is a 4 mm vessel and its distal portion has a 20% stenosis. Circumflex proximally is a 3 mm vessel and in its proximal portion, it becomes 100% occluded. The LAD proximally is a 3 mm vessel and in its proximal portion has a 90% to 95% proximal stenosis just before the takeoff of the diagonal. I can see left to left collateral filling of the patient's circumflex occlusion and distally there is left to right collateral circulation recapitulating the distal right coronary artery from the septal branches of the LAD. The right coronary artery additionally has some right to left collateral circulation from the proximal portion right, providing some collateral flow to the LAD additionally. TOTAL FLUOROSCOPY TIME: 7.4 minutes. TOTAL CONTRAST: 60 mL. IMPRESSION: Three vessel obstructive coronary artery disease involving high grade lesions in the proximal LAD, 100% occlusion of the circumflex with collateral circulation recapitulating at the distal circumflex and 100% occlusion of the right coronary artery with collateral circulation recapitulating the right coronary artery. RECOMMENDATIONS: 1. In light of procedure and findings, the patient should be considered for possible coronary artery bypass graft surgery versus a very high risk multivessel PCI with ventricular support. 2. Continue patient's inotropic support at this time with slow weaning as tolerated and reassessment of the patient's ejection fraction. 3. Maximize medical management. 4. Aggressive risk factor reduction. Dictated By: ELIGIO DIAZ/ENMA Conf#: [id number] DID#: [id number] CC: CHRISTINA JOSEPH MD;*EndCC* MTDD
--- NOTE | 2016-07-06 11:57 | PN ---
Date/Time of Note Date/Time of Note DATE: 07/06/16 TIME: 11:42 Assessment/Plan VTE Prophylaxis VTE Prophylaxis Intervention: SCD's Lines/Catheters [facility] Central Line Central line still needed: Yes Urinary Cath still in place: Yes Reason Cath still needed: urinary retention Assessment/Plan Chief Complaint/Hosp Course Assessment/Plan: 36 M with: 1. Status post ventricular fibrillation cardiac arrest with ROSC - s/p hypothermia protocol. Now s/p LHC with multivessel ds found. - possible coronary artery bypass graft surgery versus a very high risk multivessel PCI with ventricular support - Cv and CTS teams to discuss plan. - Continue ventilator support and pressor support and wean off as tolerated. 2. NSTEMI - F/u cardiology plan re: NSTEMI - again see above had LHC. - possible coronary artery bypass graft surgery versus a very high risk multivessel PCI with ventricular support - CV and CTS teams to discuss plan. 3. Vent dependent respiratory failure secondary to cardiac arrest. - f/u pulm rec's, monitor 4. Shock likely septic with a cardiogenic component - Patient had fever 3 nights ago despite abx / f/u final cultures. On low dose dobutamine now. - continue abx, pressor - wean as tolerated 5. Severe systolic dysfunction with EF of 15 to 20% - Continue current medical management including Pepcid / Heparin / aspirin / antibiotics / diuresis 6. Pulmonary edema - monitor 7. Bilateral pneumonia, possibly from aspiration - abx 8. Chronic Tobacco user - educate about cessation when awake 10. Acute kidney injury, resolved. 11. Hyperglycemia : A!C 5.7: resolved 12. Rhabdomyolysis: improving - monitor * Replace electrolytes and closely monitor * Further workup and management per clinical course. Critical Care time = 40 mins Problems: Subjective 24 Hr Interval Summary Free Text/Dictation Pt had LHC with multivessel blockage found. Still intubated. Exam/Review of Systems Vital Signs Vitals Vital Signs Date Time Temp Pulse Resp B/P Pulse Ox O2 Delivery O2 Flow Rate FiO2 07/06/16 08:00 73 07/06/16 07:25 18 100 40 07/06/16 06:00 100/64 07/06/16 05:30 Mechanical Ventilator 07/06/16 04:00 98.1 Intake and Output 07/05/16 07/05/16 07/06/16 15:00 23:00 07:00 Intake Total 618.0 ml 905.5 ml 246.5 ml Output Total 2455 ml 1050 ml 1150 ml Balance -1837.0 ml -144.5 ml -903.5 ml Exam Constitutional: alert, other (comfortable on vent) Head: normocephalic Eyes: PERRL ENMT: intubated Respiratory: clear to auscultation Cardiovascular: regular rate and rhythm, No murmurs/extra sounds Gastrointestinal: bowel sounds, non-tender, other (tolerating PEG feeds), soft Genitourinary - Male: other (clarke ) Extremities: No edema Neurological: nl mental status Skin: No rash or lesions Results Result Diagram: 07/05/16 0425 07/06/16 0830 Results 24 hrs Laboratory Tests Test 07/05/16 11:58 07/05/16 17:45 07/05/16 23:49 07/06/16 05:36 Bedside Glucose 87 128 92 113 Test 07/06/16 08:30 Sodium Level 138 Potassium Level 3.4 L Chloride Level 99 Carbon Dioxide Level 33 H Anion Gap 9 # Blood Urea Nitrogen 16 Creatinine 0.78 Glucose Level 106 Calcium Level 8.5 Medications Medications Current Medications Famotidine 20 mg 20 mg Q12 IV Last administered on 07/06/16 10:58; Admin Dose 20 MG; Start 06/28/16 at 21:00 Heparin Sodium (Porcine) (Heparin 09719 Units/250 ml) 250 ml @ 0 mls/hr Q24H IV Last administered on 06/30/16 04:31; Admin Dose 8.5 MLS/HR; Start 06/29/16 at 08:30 Heparin Sodium (Porcine) (Heparin (1000 Units/ml)) 4,000 unit PRN PRN IV PENDING LAB VALUE; Start 06/29/16 at 08:30 Meperidine HCl (Demerol) 25 mg Q4H PRN IV shivering post hypothermia pro Last administered on 06/29/16 14:44; Admin Dose 25 MG; Start 06/29/16 at 14:30 Dicyclomine HCl (Bentyl) 20 mg Q6H PRN NGT Hiccups Last administered on 09:54; Admin Dose 20 MG; Start 06/30/16 at 06:30 Insulin Aspart (Novolog Insulin Pen) NOVOLOG *MILD* ALGORI... Q6 SC Last administered on 07/04/16 00:26; Admin Dose 1 UNIT; Start 06/30/16 at 12:00 Miscellaneous Information 1 ea NOTE XX ; Start 06/30/16 at 09:30 Glucose (Glutose) 15 gm Q15M PRN PO DECREASED GLUCOSE; Start 06/30/16 at 09:30 Glucose (Glutose) 22.5 gm Q15M PRN PO DECREASED GLUCOSE; Start 06/30/16 at 09: 30 Dextrose (D50w Syringe) 25 ml Q15M PRN IV DECREASED GLUCOSE; Start 06/30/16 at 09:30 Dextrose (D50w Syringe) 50 ml Q15M PRN IV DECREASED GLUCOSE; Start 06/30/16 at 09:30 Glucagon (Glucagen) 1 mg Q15M PRN IM DECREASED GLUCOSE; Start 06/30/16 at 09:30 Glucose (Glutose) 15 gm Q15M PRN BUCCAL DECREASED GLUCOSE; Start 06/30/16 at 09 :30 Atorvastatin Calcium (Lipitor) 80 mg DAILY PO Last administered on 07/06/16 10 :57; Admin Dose 80 MG; Start 06/30/16 at 09:30 Acetaminophen 650 mg 650 mg Q6 PRN NGT PAIN AND OR ELEVATED TEMP Last administered on 07/05/16 21:05; Admin Dose 650 MG; Start 06/30/16 at 11:00 Dobutamine HCl/ Dextrose 250 ml @ 11.25 mls/ hr TITRATE IV Last administered on 07/06/16 10:40; Admin Dose 13.5 MLS/HR; Start 06/30/16 at 16:30 Lorazepam 2 mg 2 mg Q1HWA PRN IV AGITATION Last administered on 07/06/16 07:53 ; Admin Dose 2 MG; Start 06/30/16 at 17:30 Propofol (Diprivan) 100 ml @ 2.25 mls/hr Q12H IV Last administered on 10:41; Admin Dose 4.5 MLS/HR; Start 06/30/16 at 17:30 Acetaminophen (Tylenol Supp) 1,000 mg Q6H PRN ME Fever Last administered on 04:03; Admin Dose 1,000 MG; Start 06/30/16 at 21:30 Amiodarone HCl (Cordarone) 400 mg BID PO Last administered on 07/06/16 10:57; Admin Dose 400 MG; Start 07/01/16 at 11:00 Aspirin 81 mg 81 mg DAILY NGT Last administered on 07/06/16 10:57; Admin Dose 81 MG; Start 07/02/16 at 09:00 Meropenem 100 ml @ 200 mls/hr Q12 IVPB Last administered on 07/06/16 10:58; Admin Dose 200 MLS/HR; Start 07/02/16 at 13:30 Norepinephrine/ Dextrose (Levophed/D5W) 500 ml @ 1.87 mls/hr TITRATE IV ; Start 07/03/16 at 11:30 Furosemide 40 mg 40 mg Q8H IV Last administered on 07/06/16 05:32; Admin Dose 40 MG; Start 07/03/16 at 21:00 Fentanyl 100 ml @ 2.5 mls/hr TITRATE IV Last administered on 07/06/16 03:17; Admin Dose 10 MLS/HR; Start 07/03/16 at 18:00 Midazolam HCl 50 ml @ 1 mls/hr TITRATE IV Last administered on 07/05/16 11:59 ; Admin Dose 10 MLS/HR; Start 07/03/16 at 18:00; Status Future Hold Midazolam HCl 100 mg/Sodium Chloride 100 ml @ 1 mls/hr TITRATE IV Last administered on 07/06/16 04:46; Admin Dose 10 MLS/HR; Start 07/04/16 at 15:00 Vancomycin HCl (Vancocin) 250 ml @ 125 mls/hr Q8H IVPB Last administered on 04:41; Admin Dose 125 MLS/HR; Start 07/04/16 at 20:00 Acetaminophen (Tylenol Tab) 650 mg Q4H PRN PO NON-CARDIAC PAIN LEVEL (1-3); Start 07/06/16 at 10:30 Morphine Sulfate (morphine) 2 mg Q2H PRN IV FOR NON CARDIAC PAIN (4-10); Start 07/06/16 at 10:30 Al Hydrox/Mg Hydrox/Simethicone (Mag-Al Plus) 30 ml Q4H PRN PO GASTROINTESTINAL UPSET; Start 07/06/16 at 10:30 Ondansetron HCl (Zofran Inj) 4 mg Q4H PRN IV NAUSEA AND/OR VOMITING; Start at 10:30 BLACK CALVO Jul 06, 2016 11:52
--- NOTE | 2016-07-06 16:41 | CONS ---
Date/Time of Note Date/Time of Note DATE: 07/06/16 TIME: 16:35 Assessment/Plan Assessment/Plan Chief Complaint/Hosp Course ID PROGRESS NOTE TOTAL ABX DAY #7 => Vanco IV #7, Merrem #4 Zosyn->DC'd 07/02 24H INTERVAL SUMMARY * More awake, alert, attempts to sit up and pulls at lines tubes, strong, weaning sedation * CXR 07/06/16 IMPROVED=> IMPRESSION: Decreased prominence of air space opacities in the left lung suggestive of an improving pneumonia.Stable mild cardiomegaly and congestive changes.Lines and support tubes are unchanged. PHYSICAL EXAMINATION: GENERAL: 36 yo M, awake, alert, orally intubated, responds to verbal stimuli HEENT: ETT/NGT -> Secure NECK: Supple, trach-> midline CHEST: Equal chest rise bilaterally, scattered rhonchi HEART: Pulse RRR ABDOMEN: Soft, BX (+) EXTREMITIES: Warm, (+)Tattoos legs SKIN: Warm, dry ID ASSESSMENT: 36 yo Shaun M found down in field 06/28/16 witnessed arrest->CPR started by witnesses in field immediately 1. Status post ventricular fibrillation cardiac arrest with ROSC. * s/p hypothermia protocol 2. NSTEMI 3. Acute pulmonary edema w/severe systolic dysfunction with EF of 15 to 20% . 4. Shock likely septic with a cardiogenic component : 5. Sepsis vs SIRS w/Fevers 102.+, leukocytosis => ASP HCAP * BCx & Urine Cx on admission (-) * Repeat Blood, urine, respiratory cx pending 6. Vent dependent respiratory failure secondary to cardiac arrest.Pulmonary edema. 7. Bilateral pneumonia, possibly from aspiration. * CXRs last 2 days w/ progression: Mildly increased prominence of diffuse bilateral air space opacities and consolidations. 8. Acute kidney injury, resolved. 9. Rhabdomyolysis: improving 10. Chronic Tobacco user 11. Hyperglycemia : A1C 5.7: resolved ( )MRSA Nares = pending INVASIVES: * ETT, NGT, FC, R-IJ TLC ABX ALLERGIES: KNDA CURRENT ABX: TOTAL ABX DAY #7 => Vanco IV #7, Merrem #4 Zosyn-> DC'd 07/02 ID RECOMMENDATIONS: 1. Repeat BCx, UA, Urine, respiratory cx (-) * MRSA screen still pending? 2. Continue ABX through the cardiac cath and weaning process -- he stabilized w/ improved PNA . . Problems: Consultation Date/Type/Reason Admit Date/Time Jun 28, 2016 at 20:48 Initial Consult Date 06/29/16 Type of Consultation: ID Referring Provider: CHRISTINA JOSEPH Exam/Review of Systems Vital Signs Vitals Vital Signs Date Time Temp Pulse Resp B/P Pulse Ox O2 Delivery O2 Flow Rate FiO2 07/06/16 15:33 69 18 100 40 07/06/16 15:15 97/62 07/06/16 15:00 Mechanical Ventilator 07/06/16 12:00 98.7 Intake and Output 07/05/16 07/05/16 07/06/16 15:00 23:00 07:00 Intake Total 618.0 ml 905.5 ml 246.5 ml Output Total 2455 ml 1050 ml 1150 ml Balance -1837.0 ml -144.5 ml -903.5 ml Results Result Diagram: 07/05/16 0425 07/06/16 0830 Results 24 hrs Laboratory Tests Test 07/05/16 17:45 07/05/16 23:49 07/06/16 05:36 07/06/16 08:30 Bedside Glucose 128 92 113 Sodium Level 138 Potassium Level 3.4 L Chloride Level 99 Carbon Dioxide Level 33 H Anion Gap 9 # Blood Urea Nitrogen 16 Creatinine 0.78 Glucose Level 106 Calcium Level 8.5 Test 07/06/16 11:05 Vancomycin Level Trough 11.9 Medications Medications Current Medications Famotidine 20 mg 20 mg Q12 IV Last administered on 07/06/16 10:58; Admin Dose 20 MG; Start 06/28/16 at 21:00 Heparin Sodium (Porcine) (Heparin 62118 Units/250 ml) 250 ml @ 0 mls/hr Q24H IV Last administered on 06/30/16 04:31; Admin Dose 8.5 MLS/HR; Start 06/29/16 at 08:30 Heparin Sodium (Porcine) (Heparin (1000 Units/ml)) 4,000 unit PRN PRN IV PENDING LAB VALUE; Start 06/29/16 at 08:30 Meperidine HCl (Demerol) 25 mg Q4H PRN IV shivering post hypothermia pro Last administered on 06/29/16 14:44; Admin Dose 25 MG; Start 06/29/16 at 14:30 Dicyclomine HCl (Bentyl) 20 mg Q6H PRN NGT Hiccups Last administered on 09:54; Admin Dose 20 MG; Start 06/30/16 at 06:30 Miscellaneous Information 1 ea NOTE XX ; Start 06/30/16 at 09:30 Atorvastatin Calcium (Lipitor) 80 mg DAILY PO Last administered on 07/06/16 10 :57; Admin Dose 80 MG; Start 06/30/16 at 09:30 Acetaminophen 650 mg 650 mg Q6 PRN NGT PAIN AND OR ELEVATED TEMP Last administered on 07/05/16 21:05; Admin Dose 650 MG; Start 06/30/16 at 11:00 Dobutamine HCl/ Dextrose 250 ml @ 11.25 mls/ hr TITRATE IV Last administered on 07/06/16 10:40; Admin Dose 13.5 MLS/HR; Start 06/30/16 at 16:30 Lorazepam 2 mg 2 mg Q1HWA PRN IV AGITATION Last administered on 07/06/16 07:53 ; Admin Dose 2 MG; Start 06/30/16 at 17:30 Propofol (Diprivan) 100 ml @ 2.25 mls/hr Q12H IV Last administered on 16:04; Admin Dose 13.5 MLS/HR; Start 06/30/16 at 17:30 Acetaminophen (Tylenol Supp) 1,000 mg Q6H PRN [place] Fever Last administered on 04:03; Admin Dose 1,000 MG; Start 06/30/16 at 21:30 Amiodarone HCl (Cordarone) 400 mg BID PO Last administered on 07/06/16 10:57; Admin Dose 400 MG; Start 07/01/16 at 11:00 Aspirin 81 mg 81 mg DAILY NGT Last administered on 07/06/16 10:57; Admin Dose 81 MG; Start 07/02/16 at 09:00 Meropenem 100 ml @ 200 mls/hr Q12 IVPB Last administered on 07/06/16 10:58; Admin Dose 200 MLS/HR; Start 07/02/16 at 13:30 Norepinephrine/ Dextrose (Levophed/D5W) 500 ml @ 1.87 mls/hr TITRATE IV ; Start 07/03/16 at 11:30 Furosemide 40 mg 40 mg Q8H IV Last administered on 07/06/16 13:58; Admin Dose 40 MG; Start 07/03/16 at 21:00 Fentanyl 100 ml @ 2.5 mls/hr TITRATE IV Last administered on 07/06/16 13:56; Admin Dose 1 MLS/HR; Start 07/03/16 at 18:00 Midazolam HCl 50 ml @ 1 mls/hr TITRATE IV Last administered on 07/05/16 11:59 ; Admin Dose 10 MLS/HR; Start 07/03/16 at 18:00; Status Future hold Vancomycin HCl (Vancocin) 250 ml @ 125 mls/hr Q8H IVPB Last administered on 13:05; Admin Dose 125 MLS/HR; Start 07/04/16 at 20:00 Acetaminophen (Tylenol Tab) 650 mg Q4H PRN PO NON-CARDIAC PAIN LEVEL (1-3); Start 07/06/16 at 10:30 Morphine Sulfate (morphine) 2 mg Q2H PRN IV FOR NON CARDIAC PAIN (4-10); Start 07/06/16 at 10:30 Al Hydrox/Mg Hydrox/Simethicone (Mag-Al Plus) 30 ml Q4H PRN PO GASTROINTESTINAL UPSET; Start 07/06/16 at 10:30 Ondansetron HCl (Zofran Inj) 4 mg Q4H PRN IV NAUSEA AND/OR VOMITING; Start at 10:30 STONE NUGENT NP Jul 06, 2016 16:41
--- NOTE | 2016-07-06 19:32 | CONS ---
DATE OF ADMISSION: 06/28/2016 DATE OF CONSULTATION: REASON FOR CONSULTATION: Evaluation for coronary artery bypass grafting. Thank you, Dr. Chow, for asking me to see this patient. HISTORY OF PRESENT ILLNESS: This is an unfortunate 36-year-old male who was admitted because of car diac arrest, had to be intubated and resuscitated. The patient was found to have elevation of the t roponins. Subsequently, was taken to the cardiac catheterization lab, was found to have 3-vessel co ronary artery disease involving 100% occlusion of the right coronary artery, 20% left main, 100% cir cumflex and 90% stenosis of right coronary artery. The patient is currently intubated and recoverin g from his cardiac arrest. PAST MEDICAL HISTORY: Hypertension, hyperlipidemia, aspiration pneumonia. ALLERGIES: NONE. SOCIAL HISTORY: Unknown. REVIEW OF SYSTEMS: Unknown. PHYSICAL EXAMINATION: VITAL SIGNS: Blood pressure is 110/66, pulse is 79, respirations 15, saturation is 100% on FIO2 of 40%. GENERAL: The patient is orotracheally intubated. CARDIOVASCULAR: Regular rate and rhythm. LUNGS: Clear. ABDOMEN: Soft. EXTREMITIES: Warm. LABORATORY VALUES: Hemoglobin 9.9, white count 11.7, platelet count 175, PTT 62. INR 1.12. Creati nine of 0.78. IMPRESSION: 1. Coronary artery disease. 2. Status post cardiac arrest. 3. Pulmonary edema, respiratory failure. 4. Aspiration pneumonia. 5. Resolving sepsis. RECOMMENDATIONS: The patient is not a candidate to undergo coronary artery bypass grafting at the p resent time. Would continue medical management. Will consider coronary artery bypass grafting when medically cleared. Dictated By: JOHN TRIPP MD FM/NTS Conf#: [id number] DID#: [id number]
--- NOTE | 2016-07-06 21:40 | RADRPT ---
Echocardiogram Report Patient Name: TENNILLE VALDES Gender: Male Date: 1980 Study Date: 06-Jul-2016 [employer] Wafer: Dejon Pennington [facility] Location: 110 Ref. Physician: ELIGIO CHOW Quality: Good Procedures: Transthoracic echocardiogram examination. Indications: reassess EF. Findings Left Ventricle: Severe global left ventricular systolic dysfunction. The left ventricular ejection fraction is visually estimated at 25 - 30 %. Conclusions 1.Severe global left ventricular systolic dysfunction. The left ventricular ejection fraction is visually estimated at 25 - 30 %. Electronically Signed By: Eligio Chow 06-Jul-2016 21:39:53 -0700 Patient Name: TENNILLE VALDES Study Date: 06-Jul-2016 [id number]
[2016-07-07] VITALS (102 sets, daily range): BP systolic 72–144; BP diastolic 51–90; PULSE 56–89; RESP 0–23
[2016-07-07] MEDS: PROPOFOL 100 ML IV SCH ×5 (02:55→23:04)
[2016-07-07 04:41] LABS: ADD SCAN DIFF NO
[2016-07-07 04:47] LABS: BASOPHILS % 0.3 % (0.0-2.0); EOSINOPHILS # 0.6 10^3/ul (0.0-0.5); EOSINOPHILS % 5.6 % (0.0-7.0); HEMOGLOBIN 10.1 g/dl (14.0-18.0); LYMPHOCYTES # 1.6 10^3/ul (0.8-2.9); LYMPHOCYTES % 14.9 % (15.0-51.0); MEAN CORPUSCULAR HEMOGLOBIN 30.1 pg (29.0-33.0); MEAN CORPUSCULAR HGB CONC 32.6 g/dl (32.0-37.0); MEAN CORPUSCULAR VOLUME 92.3 fl (82.0-101.0); MEAN PLATELET VOLUME 9.4 fl (7.4-10.4); MONOCYTE # 0.9 10^3/ul (0.3-0.9); MONOCYTES % 8.3 % (0.0-11.0); NEUTROPHIL # 7.4 10^3/ul (1.6-7.5); PLATELET COUNT 273 10^3/UL (140-415); RED BLOOD COUNT 3.36 10^6/ul (4.70-6.10); RED CELL DISTRIBUTION WIDTH 12.8 % (11.5-14.5); WHITE BLOOD COUNT 10.8 10^3/ul (4.8-10.8)
[2016-07-07 05:03] LABS: CREATININE 0.85 mg/dl (0.61-1.24); PHOSPHORUS 3.9 mg/dl (2.5-4.9)
[2016-07-07 05:04] LABS: CALCIUM 8.5 mg/dl (8.4-10.2); MAGNESIUM 2.5 mg/dl (1.7-2.5)
[2016-07-07] MEDS: VANCOMYCIN 1 GM in NS 250 ML IVPB SCH ×3 (05:22→20:41)
[2016-07-07] MEDS: FUROSEMIDE 40 MG INJ IV SCH ×3 (05:23→20:44)
[2016-07-07] MEDS: DOBUTamine/D5W 1 MG/ML DRIP 250 ML IV SCH (05:26)
[2016-07-07] MEDS: POTASSIUM CHLORIDE 50 ML IVPB PRN ×3 (07:52→12:54)
[2016-07-07 08:08] LABS: AADO2 Arterial 140.6 mmHg (7.0-24.0); Allen Test ACCEPTAB; Arterial Base Excess 3.7 mmol/L (-3.0-3); Arterial COHb 0.3 % (0.0-3.0); Arterial Fraction of Oxyhgb 96.5 % (93.0-99.0); Arterial HCO3 27.2 mmol/L (22.0-26.0); Arterial MetHb 0.4 % (0.0-1.5); Arterial Total Hemglobin 13.1 g/dl (12.0-18.0); MODE VENT - AC
[2016-07-07] MEDS: ATORVASTATIN 80 MG TAB PO SCH (08:30)
[2016-07-07] MEDS: HEPARIN 25000 UNITS/D5W 250 ML IV SCH (08:30)
[2016-07-07] MEDS: AMIODARONE 200 MG TAB PO SCH ×2 (08:30→20:44)
[2016-07-07] MEDS: FAMOTIDINE 20 MG INJ IV SCH ×2 (08:30→20:44)
[2016-07-07] MEDS: ASPIRIN 81 MG TAB NGT SCH (08:30)
[2016-07-07] MEDS: MEROPENEM 1 GM/100 ML (PMX) 100 ML IVPB SCH (08:30)
--- NOTE | 2016-07-07 09:02 | RADRPT ---
PROCEDURE: XR Chest. CLINICAL INDICATION: Pneumonia TECHNIQUE: A single AP view of the chest was obtained. COMPARISON: Chest x-ray dated 07/06/2016 FINDINGS: The endotracheal tube tip is approximately 4.1 cm above the tabatha. The tip of the enteric tube pr ojects over the left upper quadrant. There is a right internal jugular central venous catheter with tip in the mid SVC. There are diffuse bilateral interstitial opacities. No pleural effusion or pneumothorax is seen. T he cardiomediastinal silhouette is within normal limits for size. The osseous structures are unrema rkable. IMPRESSION: 1. Diffuse bilateral interstitial opacities may reflect interstitial edema and / or multifocal pneu monia. Overall, no significant interval change. 2. Tubes and lines, as described above. RPTAT: HH .Shabnam Espinoza MD, MD Date Time Electronically viewed and signed by .Shabnam Espinoza MD, MD on 07/07/2016 09:01 .Meilnda/
--- NOTE | 2016-07-07 10:16 | PN ---
Date/Time of Note Date/Time of Note DATE: 07/07/16 TIME: 10:15 Assessment/Plan Lines/Catheters IV Catheter Type (from Nrs): Central Line Cr in Place (from Nrs): Yes Assessment/Plan Chief Complaint/Hosp Course IMPRESSION: 1. Coronary artery disease. 2. Status post cardiac arrest. 3. Pulmonary edema, respiratory failure. 4. Aspiration pneumonia. 5. Resolving sepsis. RECOMMENDATIONS: The patient is not a candidate to undergo coronary artery bypass grafting at the present time. Would continue medical management. Will consider coronary artery bypass grafting when medically cleared. Problems: Subjective 24 Hr Interval Summary Constitutional: improved Pain Control: mild Exam/Review of Systems Vital Signs Vitals Vital Signs Date Time Temp Pulse Resp B/P Pulse Ox O2 Delivery O2 Flow Rate FiO2 07/07/16 09:00 66 18 118/71 100 Mechanical Ventilator 07/07/16 08:00 97.7 07/07/16 05:17 40 Intake and Output 07/06/16 07/06/16 07/07/16 15:00 23:00 07:00 Intake Total 185.5 ml 858.00 ml 837.00 ml Output Total 1125 ml 1070 ml 595 ml Balance -939.5 ml -212.00 ml 242.00 ml Exam Neck: non-tender, supple Respiratory: clear to auscultation, normal air movement Cardiovascular: nl pulses, regular rate and rhythm Results Result Diagram: 07/07/16 0425 07/07/16 0425 JOHN TRIPP MD Jul 07, 2016 10:16
--- NOTE | 2016-07-07 10:34 | CONS ---
Date/Time of Note Date/Time of Note DATE: 07/07/16 TIME: 10:32 Consult Date/Type/Reason Admit Date/Time Jun 28, 2016 at 20:48 Initial Consult Date 06/29/16 Type of Consultation: pulmonary ICU Ordering Provider: CHRISTINA JOSEPH Subjective Patient status post coronary angiogram found to have multivessel disease with decreased ejection fraction as previously noted Remains intubated sedated on mechanical ventilation Objective Vital Signs Date Time Temp Pulse Resp B/P Pulse Ox O2 Delivery O2 Flow Rate FiO2 07/07/16 09:00 66 18 118/71 100 Mechanical Ventilator 07/07/16 08:00 97.7 07/07/16 05:17 40 Intake and Output 07/06/16 07/06/16 07/07/16 15:00 23:00 07:00 Intake Total 185.5 ml 858.00 ml 837.00 ml Output Total 1125 ml 1070 ml 595 ml Balance -939.5 ml -212.00 ml 242.00 ml Exam PHYSICAL EXAMINATION GENERAL: Young gentleman intubated on mechanical ventilation appears comfortable at rest VITAL SIGNS: see below. HEENT: Pupils equal, round, and reactive to light. CARDIAC: S1, S2, tachycardia. CHEST: Diminished air entry bilaterally. ABDOMEN: Mildly distended. Bowel sounds present no guarding or rebound. EXTREMITIES: No cyanosis, clubbing or edema. NEUROLOGIC: Unable to assess Results/Medications Result Diagram: 07/07/16 0425 07/07/16 0425 Results 24 hrs Laboratory Tests Test 07/06/16 11:05 07/07/16 04:25 07/07/16 07:00 Vancomycin Level Trough 11.9 White Blood Count 10.8 Red Blood Count 3.36 L Hemoglobin 10.1 L Hematocrit 31.0 L Mean Corpuscular Volume 92.3 Mean Corpuscular Hemoglobin 30.1 Mean Corpuscular Hemoglobin Concent 32.6 Red Cell Distribution Width 12.8 Platelet Count 273 # Mean Platelet Volume 9.4 Neutrophils % 69.0 Lymphocytes % 14.9 L Monocytes % 8.3 Eosinophils % 5.6 Basophils % 0.3 Nucleated Red Blood Cells % 0.0 Neutrophils # 7.4 Lymphocytes # 1.6 Monocytes # 0.9 Eosinophils # 0.6 H Basophils # 0.0 Nucleated Red Blood Cells # 0.0 Sodium Level 139 Potassium Level 3.0 L Chloride Level 96 L Carbon Dioxide Level 32 H Anion Gap 14 Blood Urea Nitrogen 19 Creatinine 0.85 Glucose Level 177 Calcium Level 8.5 Phosphorus Level 3.9 Magnesium Level 2.5 Blood Gas Specimen Source Blood arterial Arterial Blood Date Drawn 07/07/2016 7:30:28 AM Arterial Blood pH (Temp corrected) 7.482 H Arterial Blood pCO2 (Temp correct) 37.2 Arterial Blood pO2 (Temp corrected) 101.8 H Arterial Blood HCO3 27.2 H Arterial Blood Base Excess 3.7 H Arterial Blood Oxygen Saturation 97.2 Christ Test ACCEPTAB Arterial Blood Gas Puncture Site Right Radial Arterial Blood Carboxyhemoglobin 0.3 Arterial Blood Methemoglobin 0.4 Blood Gas A-a O2 Differential 140.6 H Oxyhemoglobin Percent 96.5 Total Hemoglobin 13.1 Blood Gas Temperature 37.0 Blood Gas Respiration Rate 18.0 Blood Gas Actual Respiration Rate 18 Blood Gas Modality VENT - AC FiO2 40.0 Blood Gas Tidal Volume 550.0 Blood Gas Low PEEP Setting 8.0 Blood Gas Notified Whom JLD Blood Gas Notified Time 07/07/2016 8:08:17 AM Medications Current Medications Famotidine 20 mg 20 mg Q12 IV Last administered on 07/07/16 08:30; Admin Dose 20 MG; Start 06/28/16 at 21:00 Heparin Sodium (Porcine) (Heparin 24611 Units/250 ml) 250 ml @ 0 mls/hr Q24H IV Last administered on 06/30/16 04:31; Admin Dose 8.5 MLS/HR; Start 06/29/16 at 08:30 Heparin Sodium (Porcine) (Heparin (1000 Units/ml)) 4,000 unit PRN PRN IV PENDING LAB VALUE; Start 06/29/16 at 08:30 Meperidine HCl (Demerol) 25 mg Q4H PRN IV shivering post hypothermia pro Last administered on 06/29/16 14:44; Admin Dose 25 MG; Start 06/29/16 at 14:30 Dicyclomine HCl (Bentyl) 20 mg Q6H PRN NGT Hiccups Last administered on 09:54; Admin Dose 20 MG; Start 06/30/16 at 06:30 Miscellaneous Information 1 ea NOTE XX ; Start 06/30/16 at 09:30 Atorvastatin Calcium (Lipitor) 80 mg DAILY PO Last administered on 07/07/16 08 :30; Admin Dose 80 MG; Start 06/30/16 at 09:30 Acetaminophen 650 mg 650 mg Q6 PRN NGT PAIN AND OR ELEVATED TEMP Last administered on 07/05/16 21:05; Admin Dose 650 MG; Start 06/30/16 at 11:00 Dobutamine HCl/ Dextrose 250 ml @ 11.25 mls/ hr TITRATE IV Last administered on 07/07/16 05:26; Admin Dose 13.5 MLS/HR; Start 06/30/16 at 16:30 Lorazepam 2 mg 2 mg Q1HWA PRN IV AGITATION Last administered on 07/06/16 20:37 ; Admin Dose 2 MG; Start 06/30/16 at 17:30 Propofol (Diprivan) 100 ml @ 2.25 mls/hr Q12H IV Last administered on 07:59; Admin Dose 22.5 MLS/HR; Start 06/30/16 at 17:30 Acetaminophen (Tylenol Supp) 1,000 mg Q6H PRN [place] Fever Last administered on 04:03; Admin Dose 1,000 MG; Start 06/30/16 at 21:30 Amiodarone HCl (Cordarone) 400 mg BID PO Last administered on 07/07/16 08:30; Admin Dose 400 MG; Start 07/01/16 at 11:00 Aspirin 81 mg 81 mg DAILY NGT Last administered on 07/07/16 08:30; Admin Dose 81 MG; Start 07/02/16 at 09:00 Meropenem 100 ml @ 200 mls/hr Q12 IVPB Last administered on 07/07/16 08:30; Admin Dose 200 MLS/HR; Start 07/02/16 at 13:30 Norepinephrine/ Dextrose (Levophed/D5W) 500 ml @ 1.87 mls/hr TITRATE IV ; Start 07/03/16 at 11:30 Furosemide 40 mg 40 mg Q8H IV Last administered on 07/07/16 05:23; Admin Dose 40 MG; Start 07/03/16 at 21:00 Fentanyl 100 ml @ 2.5 mls/hr TITRATE IV Last administered on 07/06/16 13:56; Admin Dose 1 MLS/HR; Start 07/03/16 at 18:00 Midazolam HCl 50 ml @ 1 mls/hr TITRATE IV Last administered on 07/05/16 11:59 ; Admin Dose 10 MLS/HR; Start 07/03/16 at 18:00; Status Future hold Vancomycin HCl (Vancocin) 250 ml @ 125 mls/hr Q8H IVPB Last administered on 05:22; Admin Dose 125 MLS/HR; Start 07/04/16 at 20:00 Acetaminophen (Tylenol Tab) 650 mg Q4H PRN PO NON-CARDIAC PAIN LEVEL (1-3); Start 07/06/16 at 10:30 Morphine Sulfate (morphine) 2 mg Q2H PRN IV FOR NON CARDIAC PAIN (4-10); Start 07/06/16 at 10:30 Al Hydrox/Mg Hydrox/Simethicone (Mag-Al Plus) 30 ml Q4H PRN PO GASTROINTESTINAL UPSET; Start 07/06/16 at 10:30 Ondansetron HCl (Zofran Inj) 4 mg Q4H PRN IV NAUSEA AND/OR VOMITING; Start at 10:30 Assessment/Plan Chief Complaint/Hosp Course Assessment 1. Cardiopulmonary arrest. Ventricular arrhythmia following spontaneous return of circulation. Ejection fraction 15% cardiogenic shock with elevated troponins cardiac catheterization shows multivessel coronary artery disease. Case was discussed with cardiothoracic surgery, will repeat echocardiogram next week if evidence of improving ejection fraction patient may be a candidate for coronary artery bypass graft surgery. 2. Hypoxemic respiratory failure evidence of pulmonary edema on chest x-ray 3. Possible aspiration pneumonia 4. Resolving sepsis 5. Hypokalemia Plan 1. Continue cardiology and cardiothoracic surgery recommendations as above 2. Diuresis with tolerated 3. Mechanical ventilation decrease PEEP and then FiO2 as tolerated 4. Broad-spectrum antibiotics for underlying sepsis 5. DVT and GI prophylaxis Disposition Continue ICU Discussed with nursing staff Critical care time 40 minutes Problems: ELIZABETH STERN MD, [facility] Jul 07, 2016 10:34
--- NOTE | 2016-07-07 12:50 | CONS ---
Date/Time of Note Date/Time of Note DATE: 07/07/16 TIME: 12:44 Assessment/Plan Assessment/Plan Chief Complaint/Hosp Course + IMPRESSION: 1. Positive troponin, consistent with a non-ST elevation myocardial infarction. -Peaked at 40 and now downtrending significantly. Now post-op s/p diagnostic [facility] 07/06 with 3vd 100% RCA/LCX both seen via collateral flow and 90-95% prox LAD 2. Status post cardiac arrest. 3. Cardiomyopathy, with a severely depressed left ventricular ejection fraction of approximately 15% to 20% by echo on this admission. 4. Respiratory failure. Status post intubation.-currently improving o2 sats 5. Ventricular fibrillation arrest, witnessed, status post defibrillator x1. 6. Encephalopathy. 7. Leukocytosis. 8. Anemia. 9. Hypotension.-on dobutamine alone now 10.Fevers Recc: -Tele -Continue dobutamine with slow weaning -resume heparin -Continue asa -Continue lasix diuresis and follow volume status closely -Follow for any recurrent bleeding -Continue PO amiodarone -Continue abx's and f/u cx data -Consideration fo cabg versus high risk mutivessel PCI with ventricular support with patient now to undergo cabg garrett early next week depnding upon stability Problems: Consultation Date/Type/Reason Admit Date/Time Jun 28, 2016 at 20:48 Initial Consult Date 06/29/16 Type of Consultation: Cardiology Reason for Consultation CHF/nstemi/hypotension Referring Provider: CHRISTINA JOSEPH Exam/Review of Systems Vital Signs Vitals Vital Signs Date Time Temp Pulse Resp B/P Pulse Ox O2 Delivery O2 Flow Rate FiO2 07/07/16 12:15 77 18 100/60 100 07/07/16 12:00 97.8 Mechanical Ventilator 07/07/16 08:00 40 Intake and Output 07/06/16 07/06/16 07/07/16 15:00 23:00 07:00 Intake Total 185.5 ml 858.00 ml 837.00 ml Output Total 1125 ml 1070 ml 595 ml Balance -939.5 ml -212.00 ml 242.00 ml Exam Review of Systems: CONSTITUTIONAL: No fevers, chills. PULMONARY: intubated CARDIOVASCULAR: No chest pain/palpitations GASTROINTESTINAL: No nausea/vomiting. GENITOURINARY: No hematuria/dysuria. MUSCULOSKELETAL: No myagias/arthalgias. PSYCHIATRIC: The patient denies depression. NEUROLOGIC: No weakness Constitutional: other (awake) Psych: no complaints Head: normocephalic ENMT: mucosa pink and moist Neck: jvd, supple Respiratory: diminished breath sounds Cardiovascular: regular rate and rhythm Gastrointestinal: non-tender, soft Musculoskeletal: muscle tone (normal) Extremities: edema (none) Neurological: other (Encephalopathy) Results Result Diagram: 07/07/16 0425 07/07/16 0425 Results 24 hrs Laboratory Tests Test 07/07/16 04:25 07/07/16 07:00 White Blood Count 10.8 Red Blood Count 3.36 L Hemoglobin 10.1 L Hematocrit 31.0 L Mean Corpuscular Volume 92.3 Mean Corpuscular Hemoglobin 30.1 Mean Corpuscular Hemoglobin Concent 32.6 Red Cell Distribution Width 12.8 Platelet Count 273 # Mean Platelet Volume 9.4 Neutrophils % 69.0 Lymphocytes % 14.9 L Monocytes % 8.3 Eosinophils % 5.6 Basophils % 0.3 Nucleated Red Blood Cells % 0.0 Neutrophils # 7.4 Lymphocytes # 1.6 Monocytes # 0.9 Eosinophils # 0.6 H Basophils # 0.0 Nucleated Red Blood Cells # 0.0 Sodium Level 139 Potassium Level 3.0 L Chloride Level 96 L Carbon Dioxide Level 32 H Anion Gap 14 Blood Urea Nitrogen 19 Creatinine 0.85 Glucose Level 177 Calcium Level 8.5 Phosphorus Level 3.9 Magnesium Level 2.5 Blood Gas Specimen Source Blood arterial Arterial Blood Date Drawn 07/07/2016 7:30:28 AM Arterial Blood pH (Temp corrected) 7.482 H Arterial Blood pCO2 (Temp correct) 37.2 Arterial Blood pO2 (Temp corrected) 101.8 H Arterial Blood HCO3 27.2 H Arterial Blood Base Excess 3.7 H Arterial Blood Oxygen Saturation 97.2 Christ Test ACCEPTAB Arterial Blood Gas Puncture Site Right Radial Arterial Blood Carboxyhemoglobin 0.3 Arterial Blood Methemoglobin 0.4 Blood Gas A-a O2 Differential 140.6 H Oxyhemoglobin Percent 96.5 Total Hemoglobin 13.1 Blood Gas Temperature 37.0 Blood Gas Respiration Rate 18.0 Blood Gas Actual Respiration Rate 18 Blood Gas Modality VENT - AC FiO2 40.0 Blood Gas Tidal Volume 550.0 Blood Gas Low PEEP Setting 8.0 Blood Gas Notified Whom JLD Blood Gas Notified Time 07/07/2016 8:08:17 AM Medications Medications Current Medications Famotidine 20 mg 20 mg Q12 IV Last administered on 07/07/16 08:30; Admin Dose 20 MG; Start 06/28/16 at 21:00 Heparin Sodium (Porcine) (Heparin 29460 Units/250 ml) 250 ml @ 0 mls/hr Q24H IV Last administered on 06/30/16 04:31; Admin Dose 8.5 MLS/HR; Start 06/29/16 at 08:30 Heparin Sodium (Porcine) (Heparin (1000 Units/ml)) 4,000 unit PRN PRN IV PENDING LAB VALUE; Start 06/29/16 at 08:30 Meperidine HCl (Demerol) 25 mg Q4H PRN IV shivering post hypothermia pro Last administered on 06/29/16 14:44; Admin Dose 25 MG; Start 06/29/16 at 14:30 Dicyclomine HCl (Bentyl) 20 mg Q6H PRN NGT Hiccups Last administered on 09:54; Admin Dose 20 MG; Start 06/30/16 at 06:30 Miscellaneous Information 1 ea NOTE XX ; Start 06/30/16 at 09:30 Atorvastatin Calcium (Lipitor) 80 mg DAILY PO Last administered on 07/07/16 08 :30; Admin Dose 80 MG; Start 06/30/16 at 09:30 Acetaminophen 650 mg 650 mg Q6 PRN NGT PAIN AND OR ELEVATED TEMP Last administered on 07/05/16 21:05; Admin Dose 650 MG; Start 06/30/16 at 11:00 Dobutamine HCl/ Dextrose 250 ml @ 11.25 mls/ hr TITRATE IV Last administered on 07/07/16 05:26; Admin Dose 13.5 MLS/HR; Start 06/30/16 at 16:30 Lorazepam 2 mg 2 mg Q1HWA PRN IV AGITATION Last administered on 07/06/16 20:37 ; Admin Dose 2 MG; Start 06/30/16 at 17:30 Propofol (Diprivan) 100 ml @ 2.25 mls/hr Q12H IV Last administered on 07:59; Admin Dose 22.5 MLS/HR; Start 06/30/16 at 17:30 Acetaminophen (Tylenol Supp) 1,000 mg Q6H PRN [place] Fever Last administered on 04:03; Admin Dose 1,000 MG; Start 06/30/16 at 21:30 Amiodarone HCl (Cordarone) 400 mg BID PO Last administered on 07/07/16 08:30; Admin Dose 400 MG; Start 07/01/16 at 11:00 Aspirin 81 mg 81 mg DAILY NGT Last administered on 07/07/16 08:30; Admin Dose 81 MG; Start 07/02/16 at 09:00 Meropenem 100 ml @ 200 mls/hr Q12 IVPB Last administered on 07/07/16 08:30; Admin Dose 200 MLS/HR; Start 07/02/16 at 13:30 Norepinephrine/ Dextrose (Levophed/D5W) 500 ml @ 1.87 mls/hr TITRATE IV ; Start 07/03/16 at 11:30 Furosemide 40 mg 40 mg Q8H IV Last administered on 07/07/16 05:23; Admin Dose 40 MG; Start 07/03/16 at 21:00 Fentanyl 100 ml @ 2.5 mls/hr TITRATE IV Last administered on 07/06/16 13:56; Admin Dose 1 MLS/HR; Start 07/03/16 at 18:00 Midazolam HCl 50 ml @ 1 mls/hr TITRATE IV Last administered on 07/05/16 11:59 ; Admin Dose 10 MLS/HR; Start 07/03/16 at 18:00; Status Future hold Vancomycin HCl (Vancocin) 250 ml @ 125 mls/hr Q8H IVPB Last administered on 05:22; Admin Dose 125 MLS/HR; Start 07/04/16 at 20:00 Acetaminophen (Tylenol Tab) 650 mg Q4H PRN PO NON-CARDIAC PAIN LEVEL (1-3); Start 07/06/16 at 10:30 Morphine Sulfate (morphine) 2 mg Q2H PRN IV FOR NON CARDIAC PAIN (4-10); Start 07/06/16 at 10:30 Al Hydrox/Mg Hydrox/Simethicone (Mag-Al Plus) 30 ml Q4H PRN PO GASTROINTESTINAL UPSET; Start 07/06/16 at 10:30 Ondansetron HCl (Zofran Inj) 4 mg Q4H PRN IV NAUSEA AND/OR VOMITING; Start at 10:30 ELIGIO TYSON Jul 07, 2016 12:50
[2016-07-07] MEDS ORDERED: HEPARIN 1000 UNITS/ML 10 ML INJ IV ONE (13:00)
[2016-07-07] MEDS ORDERED: POTASSIUM CHLORIDE (SR) 20 MEQ TAB PO SCH (13:00)
[2016-07-07] MEDS: FENTAnyl (DRIP) 1000 mcg/100mL 100 ML IV SCH ×2 (13:08→21:58)
[2016-07-07 13:47] LABS: ADD SCAN DIFF NO
[2016-07-07 13:50] LABS: BASOPHILS % 0.3 % (0.0-2.0); EOSINOPHILS # 0.6 10^3/ul (0.0-0.5); EOSINOPHILS % 4.8 % (0.0-7.0); HEMATOCRIT 31.7 % (42.0-52.0); HEMOGLOBIN 10.8 g/dl (14.0-18.0); LYMPHOCYTES # 1.6 10^3/ul (0.8-2.9); LYMPHOCYTES % 14.2 % (15.0-51.0); MEAN CORPUSCULAR HGB CONC 34.1 g/dl (32.0-37.0); MEAN CORPUSCULAR VOLUME 91.1 fl (82.0-101.0); MEAN PLATELET VOLUME 9.1 fl (7.4-10.4); MONOCYTES % 8.5 % (0.0-11.0); NEUTROPHILS % 70.1 % (39.0-77.0); PLATELET COUNT 308 10^3/UL (140-415); RED BLOOD COUNT 3.48 10^6/ul (4.70-6.10); RED CELL DISTRIBUTION WIDTH 12.7 % (11.5-14.5); WHITE BLOOD COUNT 11.5 10^3/ul (4.8-10.8)
[2016-07-07 13:59] LABS: INR 0.96; PROTIME 12.8 Sec (12.2-14.2)
[2016-07-07 14:00] LABS: PARTIAL THROMBOPLASTIN TIME 32.2 Sec (25.0-35.0)
--- NOTE | 2016-07-07 14:02 | PN ---
Date/Time of Note Date/Time of Note DATE: 07/07/16 TIME: 13:59 Assessment/Plan VTE Prophylaxis VTE Prophylaxis Intervention: heparin Lines/Catheters IV Catheter Type (from Nrs): Central Line Central line still needed: Yes Urinary Cath still in place: Yes Reason Cath still needed: urinary retention Assessment/Plan Chief Complaint/Hosp Course Assessment/Plan: 36 M with: 1. Status post ventricular fibrillation cardiac arrest with ROSC - s/p hypothermia protocol. Now s/p LHC with multivessel ds found. - possible coronary artery bypass graft surgery versus a very high risk multivessel PCI with ventricular support - CV and CTS teams to discuss plan - possible CABG next week in EF improves. - Continue ventilator support and pressor support and wean off as tolerated. 2. NSTEMI - F/u cardiology plan re: NSTEMI - again see above had [facility]. - possible coronary artery bypass graft surgery versus a very high risk multivessel PCI with ventricular support - CV and CTS teams to discuss plan ( see # 1) 3. Vent dependent respiratory failure secondary to cardiac arrest. - f/u pulm rec's, monitor 4. Shock likely septic with a cardiogenic component - Patient had fever again 2 nights ago despite abx / f/u final cultures. On low dose dobutamine now. - continue abx, pressor - wean as tolerated 5. Severe systolic dysfunction with EF of 15 to 20% - Continue current medical management including Pepcid / Heparin / aspirin / antibiotics / diuresis 6. Pulmonary edema - monitor 7. Bilateral pneumonia, possibly from aspiration - abx 8. Chronic Tobacco user - educate about cessation when awake 10. Acute kidney injury, resolved. 11. Hyperglycemia : A1C 5.7: resolved 12. Rhabdomyolysis: improving - monitor * Replace electrolytes and closely monitor * Further workup and management per clinical course. Critical Care time = 40 mins Problems: Subjective 24 Hr Interval Summary Free Text/Dictation Pt still intubated. Seen by CTS and CV teams. Exam/Review of Systems Vital Signs Vitals Vital Signs Date Time Temp Pulse Resp B/P Pulse Ox O2 Delivery O2 Flow Rate FiO2 07/07/16 12:15 77 18 100/60 100 07/07/16 12:00 97.8 Mechanical Ventilator 07/07/16 08:00 40 Intake and Output 07/06/16 07/06/16 07/07/16 15:00 23:00 07:00 Intake Total 185.5 ml 858.00 ml 837.00 ml Output Total 1125 ml 1070 ml 595 ml Balance -939.5 ml -212.00 ml 242.00 ml Exam Constitutional: alert, other (comfortable on vent) Head: normocephalic Eyes: PERRL ENMT: intubated Respiratory: clear to auscultation Cardiovascular: regular rate and rhythm, No murmurs/extra sounds Gastrointestinal: bowel sounds, non-tender, other (tolerating PEG feeds), soft Genitourinary - Male: other (clarke ) Extremities: No edema Neurological: nl mental status Skin: No rash or lesions Results Result Diagram: 07/07/16 0425 07/07/16 0425 Results 24 hrs Laboratory Tests Test 07/07/16 04:25 07/07/16 07:00 07/07/16 13:40 White Blood Count 10.8 Red Blood Count 3.36 L Hemoglobin 10.1 L Hematocrit 31.0 L Mean Corpuscular Volume 92.3 Mean Corpuscular Hemoglobin 30.1 Mean Corpuscular Hemoglobin Concent 32.6 Red Cell Distribution Width 12.8 Platelet Count 273 # Mean Platelet Volume 9.4 Neutrophils % 69.0 Lymphocytes % 14.9 L Monocytes % 8.3 Eosinophils % 5.6 Basophils % 0.3 Nucleated Red Blood Cells % 0.0 Neutrophils # 7.4 Lymphocytes # 1.6 Monocytes # 0.9 Eosinophils # 0.6 H Basophils # 0.0 Nucleated Red Blood Cells # 0.0 Sodium Level 139 Potassium Level 3.0 L Chloride Level 96 L Carbon Dioxide Level 32 H Anion Gap 14 Blood Urea Nitrogen 19 Creatinine 0.85 Glucose Level 177 Calcium Level 8.5 Phosphorus Level 3.9 Magnesium Level 2.5 Blood Gas Specimen Source Blood arterial Arterial Blood Date Drawn 07/07/2016 7:30:28 AM Arterial Blood pH (Temp corrected) 7.482 H Arterial Blood pCO2 (Temp correct) 37.2 Arterial Blood pO2 (Temp corrected) 101.8 H Arterial Blood HCO3 27.2 H Arterial Blood Base Excess 3.7 H Arterial Blood Oxygen Saturation 97.2 Christ Test ACCEPTAB Arterial Blood Gas Puncture Site Right Radial Arterial Blood Carboxyhemoglobin 0.3 Arterial Blood Methemoglobin 0.4 Blood Gas A-a O2 Differential 140.6 H Oxyhemoglobin Percent 96.5 Total Hemoglobin 13.1 Blood Gas Temperature 37.0 Blood Gas Respiration Rate 18.0 Blood Gas Actual Respiration Rate 18 Blood Gas Modality VENT - AC FiO2 40.0 Blood Gas Tidal Volume 550.0 Blood Gas Low PEEP Setting 8.0 Blood Gas Notified Whom JLD Blood Gas Notified Time 07/07/2016 8:08:17 AM Prothrombin Time 12.8 Prothrombin Time Ratio 1.0 INR International Normalized Ratio 0.96 Activated Partial Thromboplast Time Pending Medications Medications Current Medications Famotidine (Pepcid Iv) 20 mg Q12 IV Last administered on 07/07/16 08:30; Admin Dose 20 MG; Start 06/28/16 at 21:00 Meperidine HCl (Demerol) 25 mg Q4H PRN IV shivering post hypothermia pro Last administered on 06/29/16 14:44; Admin Dose 25 MG; Start 06/29/16 at 14:30 Dicyclomine HCl (Bentyl) 20 mg Q6H PRN NGT Hiccups Last administered on 09:54; Admin Dose 20 MG; Start 06/30/16 at 06:30 Miscellaneous Information 1 ea NOTE XX ; Start 06/30/16 at 09:30 Atorvastatin Calcium (Lipitor) 80 mg DAILY PO Last administered on 07/07/16 08 :30; Admin Dose 80 MG; Start 06/30/16 at 09:30 Acetaminophen 650 mg 650 mg Q6 PRN NGT PAIN AND OR ELEVATED TEMP Last administered on 07/05/16 21:05; Admin Dose 650 MG; Start 06/30/16 at 11:00 Dobutamine HCl/ Dextrose 250 ml @ 11.25 mls/ hr TITRATE IV Last administered on 07/07/16 05:26; Admin Dose 13.5 MLS/HR; Start 06/30/16 at 16:30 Lorazepam 2 mg 2 mg Q1HWA PRN IV AGITATION Last administered on 07/06/16 20:37 ; Admin Dose 2 MG; Start 06/30/16 at 17:30 Propofol (Diprivan) 100 ml @ 2.25 mls/hr Q12H IV Last administered on 07:59; Admin Dose 22.5 MLS/HR; Start 06/30/16 at 17:30 Acetaminophen (Tylenol Supp) 1,000 mg Q6H PRN [place] Fever Last administered on 04:03; Admin Dose 1,000 MG; Start 06/30/16 at 21:30 Amiodarone HCl (Cordarone) 400 mg BID PO Last administered on 07/07/16 08:30; Admin Dose 400 MG; Start 07/01/16 at 11:00 Aspirin 81 mg 81 mg DAILY NGT Last administered on 07/07/16 08:30; Admin Dose 81 MG; Start 07/02/16 at 09:00 Meropenem 100 ml @ 200 mls/hr Q12 IVPB Last administered on 07/07/16 08:30; Admin Dose 200 MLS/HR; Start 07/02/16 at 13:30 Norepinephrine/ Dextrose (Levophed/D5W) 500 ml @ 1.87 mls/hr TITRATE IV ; Start 07/03/16 at 11:30 Furosemide 40 mg 40 mg Q8H IV Last administered on 07/07/16 12:54; Admin Dose 40 MG; Start 07/03/16 at 21:00 Fentanyl 100 ml @ 2.5 mls/hr TITRATE IV Last administered on 07/07/16 13:08; Admin Dose 4.5 MLS/HR; Start 07/03/16 at 18:00 Midazolam HCl 50 ml @ 1 mls/hr TITRATE IV Last administered on 07/05/16 11:59 ; Admin Dose 10 MLS/HR; Start 07/03/16 at 18:00; Status Future hold Vancomycin HCl (Vancocin) 250 ml @ 125 mls/hr Q8H IVPB Last administered on 12:54; Admin Dose 125 MLS/HR; Start 07/04/16 at 20:00 Acetaminophen (Tylenol Tab) 650 mg Q4H PRN PO NON-CARDIAC PAIN LEVEL (1-3); Start 07/06/16 at 10:30 Morphine Sulfate (morphine) 2 mg Q2H PRN IV FOR NON CARDIAC PAIN (4-10); Start 07/06/16 at 10:30 Al Hydrox/Mg Hydrox/Simethicone (Mag-Al Plus) 30 ml Q4H PRN PO GASTROINTESTINAL UPSET; Start 07/06/16 at 10:30 Ondansetron HCl (Zofran Inj) 4 mg Q4H PRN IV NAUSEA AND/OR VOMITING; Start at 10:30 Heparin Sodium (Porcine) (Heparin (1000 Units/ml)) 4,000 unit ONCE ONCE IV ; Start 07/07/16 at 13:00; Stop 07/07/16 at 13:01; Status UNV Potassium Chloride (Klor-Con 20) 40 meq DAILY PO ; Start 07/07/16 at 13:00 BLACK CALVO Jul 07, 2016 14:02
[2016-07-07] MEDS: HEPARIN 25000 UNITS/250 ML 250 ML IV SCH ×2 (14:10→21:08)
[2016-07-07] MEDS: POTASSIUM CHLORIDE 20 MEQ POWDER FOR ORAL SOLN GTB SCH (14:44)
--- NOTE | 2016-07-07 15:35 | CONS ---
Date/Time of Note Date/Time of Note DATE: 07/07/16 TIME: 15:25 Assessment/Plan Assessment/Plan Chief Complaint/Hosp Course ID PROGRESS NOTE TOTAL ABX DAY #8 => Vanco IV #8, Merrem #5 Zosyn->DC'd 07/02 POD #[address] [facility] 07/06=>(+)3V-CAD: 100% RCA/LCX both seen via collateral flow and 90-95 % prox LAD 24H INTERVAL SUMMARY * More awake, alert, attempts to sit up and pulls at lines tubes, strong, weaning sedation * CXR 07/07/16 Diffuse bilateral interstitial opacities may reflect interstitial edema and / or multifocal pneumonia. PHYSICAL EXAMINATION: GENERAL: 36 yo M, awake, alert, orally intubated, responds to verbal stimuli HEENT: ETT/NGT -> Secure NECK: Supple, trach-> midline CHEST: Equal chest rise bilaterally, scattered rhonchi HEART: Pulse RRR ABDOMEN: Soft, BX (+) EXTREMITIES: Warm, (+)Tattoos legs SKIN: Warm, dry ID ASSESSMENT: 36 yo Shaun M found down in field 06/28/16 witnessed arrest->CPR started by witnesses in field immediately 1. Status post ventricular fibrillation cardiac arrest with ROSC. * s/p hypothermia protocol 2. NSTEMI-> CAD * POD #[address] [facility] 07/06=>(+)3V-CAD: 100% RCA/LCX both seen via collateral flow and 90- 95% prox LAD 3. Acute pulmonary edema w/severe systolic dysfunction with EF of 15 to 20% . 4. Shock likely septic with a cardiogenic component : 5. Sepsis vs SIRS w/Fevers 102.+, leukocytosis => ASP HCAP * BCx & Urine Cx on admission (-) * Repeat Blood, urine, respiratory cx pending 6. Vent dependent respiratory failure secondary to cardiac arrest.Pulmonary edema. 7. Bilateral pneumonia, possibly from aspiration. * CXRs last 2 days w/ progression: Mildly increased prominence of diffuse bilateral air space opacities and consolidations. 8. Acute kidney injury, resolved. 9. Rhabdomyolysis: improving 10. Chronic Tobacco user 11. Hyperglycemia : A1C 5.7: resolved ( )MRSA Nares = pending INVASIVES: * ETT, NGT, FC, R-IJ TLC ABX ALLERGIES: KNDA CURRENT ABX: TOTAL ABX DAY #7 => Vanco IV #7, Merrem #4 Zosyn-> DC'd 07/02 ID RECOMMENDATIONS: 1. Repeat BCx, UA, Urine, respiratory cx (-) * MRSA screen still pending? 2. BEGIN ABX TAPER TODAY: DC Merrem -> Start Cefepime, Continue Vanco IV * Pt presented with sepsis, has evidence residual PNA, invasive lines, now pending CABG * Continue ABX coverage while invasive lines, tubes are present pending resolution of sepsis/PNA prior to CABG . . . Problems: Consultation Date/Type/Reason Admit Date/Time Jun 28, 2016 at 20:48 Initial Consult Date 06/29/16 Type of Consultation: ID Referring Provider: CHRISTINA JOSEPH Exam/Review of Systems Vital Signs Vitals Vital Signs Date Time Temp Pulse Resp B/P Pulse Ox O2 Delivery O2 Flow Rate FiO2 07/07/16 15:00 64 14 132/86 100 Mechanical Ventilator 07/07/16 12:00 97.8 07/07/16 08:00 40 Intake and Output 07/06/16 07/06/16 07/07/16 15:00 23:00 07:00 Intake Total 185.5 ml 858.00 ml 837.00 ml Output Total 1125 ml 1070 ml 595 ml Balance -939.5 ml -212.00 ml 242.00 ml Results Result Diagram: 07/07/16 1340 07/07/16 0425 Results 24 hrs Laboratory Tests Test 07/07/16 04:25 07/07/16 07:00 07/07/16 13:40 White Blood Count 10.8 11.5 H Red Blood Count 3.36 L 3.48 L Hemoglobin 10.1 L 10.8 L Hematocrit 31.0 L 31.7 L Mean Corpuscular Volume 92.3 91.1 Mean Corpuscular Hemoglobin 30.1 31.0 Mean Corpuscular Hemoglobin Concent 32.6 34.1 Red Cell Distribution Width 12.8 12.7 Platelet Count 273 # 308 Mean Platelet Volume 9.4 9.1 Neutrophils % 69.0 70.1 Lymphocytes % 14.9 L 14.2 L Monocytes % 8.3 8.5 Eosinophils % 5.6 4.8 Basophils % 0.3 0.3 Nucleated Red Blood Cells % 0.0 0.0 Neutrophils # 7.4 8.0 H Lymphocytes # 1.6 1.6 Monocytes # 0.9 1.0 H Eosinophils # 0.6 H 0.6 H Basophils # 0.0 0.0 Nucleated Red Blood Cells # 0.0 0.0 Sodium Level 139 Potassium Level 3.0 L Chloride Level 96 L Carbon Dioxide Level 32 H Anion Gap 14 Blood Urea Nitrogen 19 Creatinine 0.85 Glucose Level 177 Calcium Level 8.5 Phosphorus Level 3.9 Magnesium Level 2.5 Blood Gas Specimen Source Blood arterial Arterial Blood Date Drawn 07/07/2016 7:30:28 AM Arterial Blood pH (Temp corrected) 7.482 H Arterial Blood pCO2 (Temp correct) 37.2 Arterial Blood pO2 (Temp corrected) 101.8 H Arterial Blood HCO3 27.2 H Arterial Blood Base Excess 3.7 H Arterial Blood Oxygen Saturation 97.2 Christ Test ACCEPTAB Arterial Blood Gas Puncture Site Right Radial Arterial Blood Carboxyhemoglobin 0.3 Arterial Blood Methemoglobin 0.4 Blood Gas A-a O2 Differential 140.6 H Oxyhemoglobin Percent 96.5 Total Hemoglobin 13.1 Blood Gas Temperature 37.0 Blood Gas Respiration Rate 18.0 Blood Gas Actual Respiration Rate 18 Blood Gas Modality VENT - AC FiO2 40.0 Blood Gas Tidal Volume 550.0 Blood Gas Low PEEP Setting 8.0 Blood Gas Notified Whom JLD Blood Gas Notified Time 07/07/2016 8:08:17 AM Prothrombin Time 12.8 Prothrombin Time Ratio 1.0 INR International Normalized Ratio 0.96 Activated Partial Thromboplast Time 32.2 Medications Medications Current Medications Famotidine (Pepcid Iv) 20 mg Q12 IV Last administered on 07/07/16 08:30; Admin Dose 20 MG; Start 06/28/16 at 21:00 Meperidine HCl (Demerol) 25 mg Q4H PRN IV shivering post hypothermia pro Last administered on 06/29/16 14:44; Admin Dose 25 MG; Start 06/29/16 at 14:30 Dicyclomine HCl (Bentyl) 20 mg Q6H PRN NGT Hiccups Last administered on 09:54; Admin Dose 20 MG; Start 06/30/16 at 06:30 Miscellaneous Information 1 ea NOTE XX ; Start 06/30/16 at 09:30 Atorvastatin Calcium (Lipitor) 80 mg DAILY PO Last administered on 07/07/16 08 :30; Admin Dose 80 MG; Start 06/30/16 at 09:30 Acetaminophen 650 mg 650 mg Q6 PRN NGT PAIN AND OR ELEVATED TEMP Last administered on 07/05/16 21:05; Admin Dose 650 MG; Start 06/30/16 at 11:00 Dobutamine HCl/ Dextrose 250 ml @ 11.25 mls/ hr TITRATE IV Last administered on 07/07/16 05:26; Admin Dose 13.5 MLS/HR; Start 06/30/16 at 16:30 Lorazepam 2 mg 2 mg Q1HWA PRN IV AGITATION Last administered on 07/06/16 20:37 ; Admin Dose 2 MG; Start 06/30/16 at 17:30 Propofol (Diprivan) 100 ml @ 2.25 mls/hr Q12H IV Last administered on 13:58; Admin Dose 20.25 MLS/HR; Start 06/30/16 at 17:30 Acetaminophen (Tylenol Supp) 1,000 mg Q6H PRN [place] Fever Last administered on 04:03; Admin Dose 1,000 MG; Start 06/30/16 at 21:30 Amiodarone HCl (Cordarone) 400 mg BID PO Last administered on 07/07/16 08:30; Admin Dose 400 MG; Start 07/01/16 at 11:00 Aspirin 81 mg 81 mg DAILY NGT Last administered on 07/07/16 08:30; Admin Dose 81 MG; Start 07/02/16 at 09:00 Meropenem 100 ml @ 200 mls/hr Q12 IVPB Last administered on 07/07/16 08:30; Admin Dose 200 MLS/HR; Start 07/02/16 at 13:30 Norepinephrine/ Dextrose (Levophed/D5W) 500 ml @ 1.87 mls/hr TITRATE IV ; Start 07/03/16 at 11:30 Furosemide 40 mg 40 mg Q8H IV Last administered on 07/07/16 12:54; Admin Dose 40 MG; Start 07/03/16 at 21:00 Fentanyl 100 ml @ 2.5 mls/hr TITRATE IV Last administered on 07/07/16 13:08; Admin Dose 4.5 MLS/HR; Start 07/03/16 at 18:00 Midazolam HCl 50 ml @ 1 mls/hr TITRATE IV Last administered on 07/05/16 11:59 ; Admin Dose 10 MLS/HR; Start 07/03/16 at 18:00; Status Future hold Vancomycin HCl (Vancocin) 250 ml @ 125 mls/hr Q8H IVPB Last administered on 12:54; Admin Dose 125 MLS/HR; Start 07/04/16 at 20:00 Acetaminophen (Tylenol Tab) 650 mg Q4H PRN PO NON-CARDIAC PAIN LEVEL (1-3); Start 07/06/16 at 10:30 Morphine Sulfate (morphine) 2 mg Q2H PRN IV FOR NON CARDIAC PAIN (4-10); Start 07/06/16 at 10:30 Al Hydrox/Mg Hydrox/Simethicone (Mag-Al Plus) 30 ml Q4H PRN PO GASTROINTESTINAL UPSET; Start 07/06/16 at 10:30 Ondansetron HCl (Zofran Inj) 4 mg Q4H PRN IV NAUSEA AND/OR VOMITING; Start at 10:30 Potassium Chloride (Potassium Chloride Pwd/Soln) 40 meq DAILY GTB Last administered on 07/07/16 14:44; Admin Dose 40 MEQ; Start 07/07/16 at 15:00 STONE NUGENT NP Jul 07, 2016 15:35
--- NOTE | 2016-07-07 17:22 | RADRPT ---
Vent Rate: 80 bpm RR Interval: 0 msec [place] Interval: 160 msec QRS Duration: 94 msec QT Interval: 436 msec QTC Interval: 502 msec P-R-T [place]: 45 - 47 - -79 degrees Normal sinus rhythm Possible Inferior infarct , age undetermined ST amp; T wave abnormality, consider anterolateral ischemia Prolonged QT Abnormal ECG Electronically Signed By: Moisés Trimble [id number]
[2016-07-07] MEDS: LORAZEPAM 2 MG INJ IV PRN (18:12)
[2016-07-07] MEDS: CEFEPIME 1GM/50 ML (PMX) 50 ML IVPB SCH (21:40)
[2016-07-08] VITALS (103 sets, daily range): BP systolic 68–145; BP diastolic 12–84; PULSE 58–92; RESP 13–22
[2016-07-08] MEDS: PROPOFOL 100 ML IV SCH ×5 (02:52→19:33)
[2016-07-08 03:55] LABS: ADD SCAN DIFF NO
[2016-07-08 03:58] LABS: BASOPHIL # 0.1 10^3/ul (0.0-0.1); BASOPHILS % 0.4 % (0.0-2.0); EOSINOPHILS # 0.7 10^3/ul (0.0-0.5); HEMATOCRIT 31.2 % (42.0-52.0); HEMOGLOBIN 10.4 g/dl (14.0-18.0); LYMPHOCYTES # 2.5 10^3/ul (0.8-2.9); LYMPHOCYTES % 18.8 % (15.0-51.0); MEAN CORPUSCULAR HEMOGLOBIN 30.8 pg (29.0-33.0); MEAN CORPUSCULAR HGB CONC 33.3 g/dl (32.0-37.0); MEAN CORPUSCULAR VOLUME 92.3 fl (82.0-101.0); MEAN PLATELET VOLUME 9.1 fl (7.4-10.4); MONOCYTE # 1.2 10^3/ul (0.3-0.9); MONOCYTES % 8.6 % (0.0-11.0); NEUTROPHIL # 8.6 10^3/ul (1.6-7.5); NEUTROPHILS % 64.5 % (39.0-77.0); PLATELET COUNT 353 10^3/UL (140-415); RED BLOOD COUNT 3.38 10^6/ul (4.70-6.10); RED CELL DISTRIBUTION WIDTH 12.7 % (11.5-14.5); WHITE BLOOD COUNT 13.4 10^3/ul (4.8-10.8)
[2016-07-08] MEDS: VANCOMYCIN 1 GM in NS 250 ML IVPB SCH ×3 (04:05→20:36)
[2016-07-08 04:19] LABS: CALCIUM 8.8 mg/dl (8.4-10.2); CREATININE 0.91 mg/dl (0.61-1.24); MAGNESIUM 2.5 mg/dl (1.7-2.5); POTASSIUM 3.9 mmol/L (3.5-5.1)
[2016-07-08] MEDS: HEPARIN 1000 UNITS/ML 10 ML INJ IV PRN (04:35)
[2016-07-08] MEDS: HEPARIN 25000 UNITS/250 ML 250 ML IV SCH ×2 (04:38→08:10)
[2016-07-08] MEDS: FUROSEMIDE 40 MG INJ IV SCH ×3 (04:39→20:54)
[2016-07-08] MEDS: LORAZEPAM 2 MG INJ IV PRN (06:49)
[2016-07-08] MEDS: POTASSIUM CHLORIDE 50 ML IVPB PRN ×2 (08:08→19:34)
[2016-07-08] MEDS: FAMOTIDINE 20 MG INJ IV SCH ×2 (08:08→20:54)
[2016-07-08] MEDS: DOBUTamine/D5W 1 MG/ML DRIP 250 ML IV SCH (08:13)
[2016-07-08] MEDS: FENTAnyl (DRIP) 1000 mcg/100mL 100 ML IV SCH ×2 (08:16→15:19)
[2016-07-08] MEDS: ATORVASTATIN 80 MG TAB PO SCH (08:21)
[2016-07-08] MEDS: CEFEPIME 1GM/50 ML (PMX) 50 ML IVPB SCH ×2 (08:21→20:54)
[2016-07-08] MEDS: ASPIRIN 81 MG TAB NGT SCH (08:21)
[2016-07-08] MEDS: POTASSIUM CHLORIDE 20 MEQ POWDER FOR ORAL SOLN GTB SCH (08:21)
--- NOTE | 2016-07-08 08:27 | RADRPT ---
PROCEDURE: Chest Radiograph. CLINICAL INDICATION: Post intubation TECHNIQUE: Single frontal chest radiograph. COMPARISON: Chest radiograph 07/07/2016 FINDINGS: An endotracheal tube is in place with distal tip approximately 3.6 cm above the [place]. A right int ernal jugular central line is present with distal tip in the superior vena cava. Nasogastric tube i s noted overlying the stomach. The heart is magnified.. The cardiomediastinal silhouette is within normal limits. Patchy left greater than right air space disease is unchanged in distribution and ex tent. No pleural effusions are identified. The bones are intact. IMPRESSION: 1. Stable radiographic appearance of chest compared to 07/07/2016. RPTAT: KK .Noah Chen MD, MD Date Time Electronically viewed and signed by .Noah Chen MD, MD on 07/08/2016 08:27 .B/
--- NOTE | 2016-07-08 09:10 | CONS ---
Date/Time of Note Date/Time of Note DATE: 07/08/16 TIME: 09:07 Assessment/Plan Assessment/Plan Additional Assessment/Plan Chest x-ray was reviewed from today which is showing mild bilateral pulmonary edema, that has been marked overall improvement. Ventilator settings; AC of 18, tidal volume 550, PEEP of 8, 40% FiO2. Next Assessment recommendations; next 1. Patient admitted with cardiac arrest status post hypothermia protocol with preservation of adequate mental status. 2. Status post coronary angiography, revealing diffuse disease. 3. Bilateral pneumonia and pulmonary edema with marked radiological improvement. 4. Cardiomyopathy. Continue current treatment. Start tube feeding. Continue Lasix. Wean off dopamine as tolerated. If the chest x-ray from tomorrow looks improved patient would warrant a weaning trial from ventilator. Prognosis is still guarded. Patient may require another attempt at angioplasty versus CABG surgery. 35 minutes of critical care time was spent evaluating the patient. Consultation Date/Type/Reason Admit Date/Time Jun 28, 2016 at 20:48 Initial Consult Date 06/29/16 Type of Consultation: Pulmonary/critical care Referring Provider: CHRISTINA JOSEPH 24 HR Interval Summary Free Text/Dictation Patient condition remains critical. Still requiring full ventilator support. Patient however has remained hemodynamically stable, requiring low-dose dobutamine drip. General exam; young male, orally intubated, despite being on sedation patient is steadily arousable. Follows simple commands Exam/Review of Systems Vital Signs Vitals Vital Signs Date Time Temp Pulse Resp B/P Pulse Ox O2 Delivery O2 Flow Rate FiO2 07/08/16 07:00 83 20 121/69 99 Mechanical Ventilator 07/08/16 05:41 40 07/08/16 04:15 98.6 Intake and Output 07/07/16 07/07/16 07/08/16 15:00 23:00 07:00 Intake Total 537.00 ml 959.0 ml 964.5 ml Output Total 1975 ml 720 ml 720 ml Balance -1438.00 ml 239.0 ml 244.5 ml Exam HEENT exam is; supple neck, positive JVD. No lymphadenopathy. Midline trachea. No thyromegaly. Orally intubated. No neck masses. Pupils are small bilaterally. Chest examination; clear to auscultation. S1-S2 audible, no murmurs. Regular rhythm. Abdomen examination; soft, nondistended. No organomegaly. Bowel sounds audible. Nontender. Extremity examination; no peripheral edema. Pulses 1+ bilaterally. POCKET [employer]ER exam is; patient is awake and follows simple commands moves all 4 extremities. Results Result Diagram: 07/08/16 0330 07/08/16 0330 Results 24 hrs Laboratory Tests Test 07/07/16 13:40 07/07/16 19:50 07/08/16 03:30 White Blood Count 11.5 H 13.4 H Red Blood Count 3.48 L 3.38 L Hemoglobin 10.8 L 10.4 L Hematocrit 31.7 L 31.2 L Mean Corpuscular Volume 91.1 92.3 Mean Corpuscular Hemoglobin 31.0 30.8 Mean Corpuscular Hemoglobin Concent 34.1 33.3 Red Cell Distribution Width 12.7 12.7 Platelet Count 308 353 Mean Platelet Volume 9.1 9.1 Neutrophils % 70.1 64.5 Lymphocytes % 14.2 L 18.8 Monocytes % 8.5 8.6 Eosinophils % 4.8 5.0 Basophils % 0.3 0.4 Nucleated Red Blood Cells % 0.0 0.0 Neutrophils # 8.0 H 8.6 H Lymphocytes # 1.6 2.5 Monocytes # 1.0 H 1.2 H Eosinophils # 0.6 H 0.7 H Basophils # 0.0 0.1 Nucleated Red Blood Cells # 0.0 0.0 Prothrombin Time 12.8 Prothrombin Time Ratio 1.0 INR International Normalized Ratio 0.96 Activated Partial Thromboplast Time 32.2 48.5 H 46.2 H Sodium Level 137 Potassium Level 3.9 Chloride Level 101 Carbon Dioxide Level 29 Anion Gap 11 Blood Urea Nitrogen 19 Creatinine 0.91 Glucose Level 126 # Calcium Level 8.8 Magnesium Level 2.5 Medications Medications Current Medications Famotidine (Pepcid Iv) 20 mg Q12 IV Last administered on 07/08/16 08:08; Admin Dose 20 MG; Start 06/28/16 at 21:00 Meperidine HCl (Demerol) 25 mg Q4H PRN IV shivering post hypothermia pro Last administered on 06/29/16 14:44; Admin Dose 25 MG; Start 06/29/16 at 14:30 Dicyclomine HCl (Bentyl) 20 mg Q6H PRN NGT Hiccups Last administered on 09:54; Admin Dose 20 MG; Start 06/30/16 at 06:30 Miscellaneous Information 1 ea NOTE XX ; Start 06/30/16 at 09:30 Atorvastatin Calcium (Lipitor) 80 mg DAILY PO Last administered on 07/08/16 08 :21; Admin Dose 80 MG; Start 06/30/16 at 09:30 Acetaminophen 650 mg 650 mg Q6 PRN NGT PAIN AND OR ELEVATED TEMP Last administered on 07/05/16 21:05; Admin Dose 650 MG; Start 06/30/16 at 11:00 Dobutamine HCl/ Dextrose 250 ml @ 11.25 mls/ hr TITRATE IV Last administered on 07/08/16 08:13; Admin Dose 4.5 MLS/HR; Start 06/30/16 at 16:30 Lorazepam 2 mg 2 mg Q1HWA PRN IV AGITATION Last administered on 07/08/16 06:49 ; Admin Dose 2 MG; Start 06/30/16 at 17:30 Propofol (Diprivan) 100 ml @ 2.25 mls/hr Q12H IV Last administered on 08:08; Admin Dose 22.5 MLS/HR; Start 06/30/16 at 17:30 Acetaminophen (Tylenol Supp) 1,[address] Fever Last administered on 04:03; Admin Dose 1,000 MG; Start 06/30/16 at 21:30 Amiodarone HCl (Cordarone) 400 mg BID PO Last administered on 07/07/16 20:44; Admin Dose 400 MG; Start 07/01/16 at 11:00 Aspirin 81 mg 81 mg DAILY NGT Last administered on 07/08/16 08:21; Admin Dose 81 MG; Start 07/02/16 at 09:00 Norepinephrine/ Dextrose (Levophed/D5W) 500 ml @ 1.87 mls/hr TITRATE IV ; Start 07/03/16 at 11:30 Furosemide 40 mg 40 mg Q8H IV Last administered on 07/08/16 04:39; Admin Dose 40 MG; Start 07/03/16 at 21:00 Fentanyl 100 ml @ 2.5 mls/hr TITRATE IV Last administered on 07/08/16 08:16; Admin Dose 10 MLS/HR; Start 07/03/16 at 18:00 Midazolam HCl 50 ml @ 1 mls/hr TITRATE IV Last administered on 07/05/16 11:59 ; Admin Dose 10 MLS/HR; Start 07/03/16 at 18:00; Status Future hold Vancomycin HCl (Vancocin) 250 ml @ 125 mls/hr Q8H IVPB Last administered on 04:05; Admin Dose 125 MLS/HR; Start 07/04/16 at 20:00 Acetaminophen (Tylenol Tab) 650 mg Q4H PRN PO NON-CARDIAC PAIN LEVEL (1-3); Start 07/06/16 at 10:30 Morphine Sulfate (morphine) 2 mg Q2H PRN IV FOR NON CARDIAC PAIN (4-10); Start 07/06/16 at 10:30 Al Hydrox/Mg Hydrox/Simethicone (Mag-Al Plus) 30 ml Q4H PRN PO GASTROINTESTINAL UPSET; Start 07/06/16 at 10:30 Ondansetron HCl (Zofran Inj) 4 mg Q4H PRN IV NAUSEA AND/OR VOMITING; Start at 10:30 Potassium Chloride 40 meq 40 meq DAILY GTB Last administered on 07/08/16 08:21 ; Admin Dose 40 MEQ; Start 07/07/16 at 15:00 Cefepime HCl (Maxipime 1gm/50 ml (Pmx)) 50 ml @ 100 mls/hr Q12 IVPB Last administered on 07/08/16 08:21; Admin Dose 100 MLS/HR; Start 07/07/16 at 21:00 SARITHA RAYMUNDO Jul 08, 2016 09:10
[2016-07-08] MEDS: AMIODARONE 200 MG TAB PO SCH ×2 (10:07→20:55)
[2016-07-08] MEDS: MIDAZOLAM (DRIP) 50 mg/50 mL 50 ML IV SCH ×3 (10:07→23:08)
--- NOTE | 2016-07-08 12:05 | PN ---
Date/Time of Note Date/Time of Note DATE: 07/08/16 TIME: 12:00 Assessment/Plan VTE Prophylaxis VTE Prophylaxis Intervention: heparin Lines/Catheters IV Catheter Type (from Nrs): Central Line Central line still needed: Yes Urinary Cath still in place: Yes Reason Cath still needed: urinary retention Assessment/Plan Chief Complaint/Hosp Course Assessment/Plan: 36 M with: 1. Status post ventricular fibrillation cardiac arrest with ROSC - s/p hypothermia protocol. Now s/p LHC with multivessel ds found. - possible coronary artery bypass graft surgery versus a very high risk multivessel PCI with ventricular support - CV and CTS teams to discuss plan - possible CABG next week in EF improves. - Continue ventilator support and pressor support and wean off as tolerated. 2. NSTEMI - F/u cardiology plan re: NSTEMI - again see above had C. - possible coronary artery bypass graft surgery versus a very high risk multivessel PCI with ventricular support - CV and CTS teams to discuss plan ( see # 1) - low dose dobutamine as well 3. Vent dependent respiratory failure secondary to cardiac arrest. - f/u pulm rec's, monitor 4. Shock likely septic with a cardiogenic component - Patient had fever again 3 nights ago despite abx / f/u final cultures. On low dose dobutamine now. - continue abx, pressor - wean as tolerated 5. Severe systolic dysfunction with EF of 15 to 20% - Continue current medical management including Pepcid / Heparin / aspirin / antibiotics / diuresis 6. Pulmonary edema - monitor 7. Bilateral pneumonia, possibly from aspiration - abx 8. Chronic Tobacco user - educate about cessation when awake 10. Acute kidney injury, resolved. 11. Hyperglycemia : A1C 5.7: resolved 12. Rhabdomyolysis: improving - monitor * Replace electrolytes and closely monitor * Further workup and management per clinical course. Critical Care time = 40 mins Problems: Subjective 24 Hr Interval Summary Free Text/Dictation Pt still intubated, heparin IV drip, pressor. Exam/Review of Systems Vital Signs Vitals Vital Signs Date Time Temp Pulse Resp B/P Pulse Ox O2 Delivery O2 Flow Rate FiO2 07/08/16 11:28 64 18 100 40 07/08/16 07:00 121/69 Mechanical Ventilator 07/08/16 04:15 98.6 Intake and Output 07/07/16 07/07/16 07/08/16 15:00 23:00 07:00 Intake Total 537.00 ml 959.0 ml 964.5 ml Output Total 1975 ml 720 ml 720 ml Balance -1438.00 ml 239.0 ml 244.5 ml Exam Constitutional: alert, other (comfortable on vent) Head: normocephalic Eyes: PERRL ENMT: intubated Respiratory: clear to auscultation Cardiovascular: regular rate and rhythm, No murmurs/extra sounds Gastrointestinal: bowel sounds, non-tender, other (tolerating PEG feeds), soft Genitourinary - Male: other (clarke ) Extremities: No edema Neurological: nl mental status Skin: No rash or lesions Results Result Diagram: 07/08/16 0330 07/08/16 0330 Results 24 hrs Laboratory Tests Test 07/07/16 13:40 07/07/16 19:50 07/08/16 03:30 White Blood Count 11.5 H 13.4 H Red Blood Count 3.48 L 3.38 L Hemoglobin 10.8 L 10.4 L Hematocrit 31.7 L 31.2 L Mean Corpuscular Volume 91.1 92.3 Mean Corpuscular Hemoglobin 31.0 30.8 Mean Corpuscular Hemoglobin Concent 34.1 33.3 Red Cell Distribution Width 12.7 12.7 Platelet Count 308 353 Mean Platelet Volume 9.1 9.1 Neutrophils % 70.1 64.5 Lymphocytes % 14.2 L 18.8 Monocytes % 8.5 8.6 Eosinophils % 4.8 5.0 Basophils % 0.3 0.4 Nucleated Red Blood Cells % 0.0 0.0 Neutrophils # 8.0 H 8.6 H Lymphocytes # 1.6 2.5 Monocytes # 1.0 H 1.2 H Eosinophils # 0.6 H 0.7 H Basophils # 0.0 0.1 Nucleated Red Blood Cells # 0.0 0.0 Prothrombin Time 12.8 Prothrombin Time Ratio 1.0 INR International Normalized Ratio 0.96 Activated Partial Thromboplast Time 32.2 48.5 H 46.2 H Sodium Level 137 Potassium Level 3.9 Chloride Level 101 Carbon Dioxide Level 29 Anion Gap 11 Blood Urea Nitrogen 19 Creatinine 0.91 Glucose Level 126 # Calcium Level 8.8 Magnesium Level 2.5 Medications Medications Current Medications Famotidine (Pepcid Iv) 20 mg Q12 IV Last administered on 07/08/16 08:08; Admin Dose 20 MG; Start 06/28/16 at 21:00 Meperidine HCl (Demerol) 25 mg Q4H PRN IV shivering post hypothermia pro Last administered on 06/29/16 14:44; Admin Dose 25 MG; Start 06/29/16 at 14:30 Dicyclomine HCl (Bentyl) 20 mg Q6H PRN NGT Hiccups Last administered on 09:54; Admin Dose 20 MG; Start 06/30/16 at 06:30 Miscellaneous Information 1 ea NOTE XX ; Start 06/30/16 at 09:30 Atorvastatin Calcium (Lipitor) 80 mg DAILY PO Last administered on 07/08/16 08 :21; Admin Dose 80 MG; Start 06/30/16 at 09:30 Acetaminophen 650 mg 650 mg Q6 PRN NGT PAIN AND OR ELEVATED TEMP Last administered on 07/05/16 21:05; Admin Dose 650 MG; Start 06/30/16 at 11:00 Dobutamine HCl/ Dextrose 250 ml @ 11.25 mls/ hr TITRATE IV Last administered on 07/08/16 08:13; Admin Dose 4.5 MLS/HR; Start 06/30/16 at 16:30 Lorazepam 2 mg 2 mg Q1HWA PRN IV AGITATION Last administered on 07/08/16 06:49 ; Admin Dose 2 MG; Start 06/30/16 at 17:30 Propofol (Diprivan) 100 ml @ 2.25 mls/hr Q12H IV Last administered on 11:47; Admin Dose 22.5 MLS/HR; Start 06/30/16 at 17:30 Acetaminophen (Tylenol Supp) 1,000 mg Q6H PRN NV Fever Last administered on 04:03; Admin Dose 1,000 MG; Start 06/30/16 at 21:30 Amiodarone HCl (Cordarone) 400 mg BID PO Last administered on 07/08/16 10:07; Admin Dose 400 MG; Start 07/01/16 at 11:00 Aspirin 81 mg 81 mg DAILY NGT Last administered on 07/08/16 08:21; Admin Dose 81 MG; Start 07/02/16 at 09:00 Norepinephrine/ Dextrose (Levophed/D5W) 500 ml @ 1.87 mls/hr TITRATE IV ; Start 07/03/16 at 11:30 Furosemide 40 mg 40 mg Q8H IV Last administered on 07/08/16 04:39; Admin Dose 40 MG; Start 07/03/16 at 21:00 Fentanyl 100 ml @ 2.5 mls/hr TITRATE IV Last administered on 07/08/16 08:16; Admin Dose 10 MLS/HR; Start 07/03/16 at 18:00 Midazolam HCl 50 ml @ 1 mls/hr TITRATE IV Last administered on 07/08/16 10:07 ; Admin Dose 3 MLS/HR; Start 07/03/16 at 18:00; Status Future hold Vancomycin HCl (Vancocin) 250 ml @ 125 mls/hr Q8H IVPB Last administered on 11:52; Admin Dose 125 MLS/HR; Start 07/04/16 at 20:00 Acetaminophen (Tylenol Tab) 650 mg Q4H PRN PO NON-CARDIAC PAIN LEVEL (1-3); Start 07/06/16 at 10:30 Morphine Sulfate (morphine) 2 mg Q2H PRN IV FOR NON CARDIAC PAIN (4-10); Start 07/06/16 at 10:30 Al Hydrox/Mg Hydrox/Simethicone (Mag-Al Plus) 30 ml Q4H PRN PO GASTROINTESTINAL UPSET; Start 07/06/16 at 10:30 Ondansetron HCl (Zofran Inj) 4 mg Q4H PRN IV NAUSEA AND/OR VOMITING; Start at 10:30 Potassium Chloride 40 meq 40 meq DAILY GTB Last administered on 07/08/16 08:21 ; Admin Dose 40 MEQ; Start 07/07/16 at 15:00 Cefepime HCl (Maxipime 1gm/50 ml (Pmx)) 50 ml @ 100 mls/hr Q12 IVPB Last administered on 07/08/16 08:21; Admin Dose 100 MLS/HR; Start 07/07/16 at 21:00 BLACK CALVO Jul 08, 2016 12:05
--- NOTE | 2016-07-08 13:05 | CONS ---
Date/Time of Note Date/Time of Note DATE: 07/08/16 TIME: 13:01 Assessment/Plan Assessment/Plan Chief Complaint/Hosp Course + IMPRESSION: 1. Positive troponin, consistent with a non-ST elevation myocardial infarction. -Peaked at 40 and now downtrending significantly. Now post-op s/p diagnostic C 07/06 with 3vd 100% RCA/LCX both seen via collateral flow and 90-95% prox LAD 2. Status post cardiac arrest. 3. Cardiomyopathy, with a severely depressed left ventricular ejection fraction of approximately 15% to 20% by echo on this admission. s/p repeat Echo 07/06 limited EF now 25-30% 4. Respiratory failure. Status post intubation. 5. Ventricular fibrillation arrest, witnessed, status post defibrillator x1. 6. Encephalopathy. 7. Leukocytosis. 8. Anemia. 9. Hypotension.-on dobutamine alone now 10.Fevers Recc: -Tele -Continue dobutamine with slow weaning now ongoing and almost off -Continue heparin -Continue asa -Continue lasix diuresis and follow volume status closely -Follow for any recurrent bleeding -Continue PO amiodarone -Continue abx's and f/u cx data -Consideration fo cabg versus high risk mutivessel PCI with ventricular support with patient now to undergo cabg garrett early next week depending upon stability Problems: Consultation Date/Type/Reason Admit Date/Time Jun 28, 2016 at 20:48 Initial Consult Date 06/29/16 Type of Consultation: Cardiology Reason for Consultation Acute MA/shock/cardiomyopathy Referring Provider: CHRISTINA JOSEPH Exam/Review of Systems Vital Signs Vitals Vital Signs Date Time Temp Pulse Resp B/P Pulse Ox O2 Delivery O2 Flow Rate FiO2 07/08/16 11:28 64 18 100 40 07/08/16 07:00 121/69 Mechanical Ventilator 07/08/16 04:15 98.6 Intake and Output 07/07/16 07/07/16 07/08/16 15:00 23:00 07:00 Intake Total 537.00 ml 959.0 ml 964.5 ml Output Total 1975 ml 720 ml 720 ml Balance -1438.00 ml 239.0 ml 244.5 ml Exam Review of Systems: CONSTITUTIONAL: No fevers, chills. PULMONARY: intubated CARDIOVASCULAR: No obvious chest pain/palpitations GASTROINTESTINAL: No nausea/vomiting. GENITOURINARY: No hematuria/dysuria. MUSCULOSKELETAL: No obvious myagias/arthalgias. PSYCHIATRIC: The patient denies depression. NEUROLOGIC: sedated Constitutional: other (sedated) Head: normocephalic ENMT: intubated Neck: jvd (9 cm water), supple Respiratory: diminished breath sounds (at bases/B) Cardiovascular: regular rate and rhythm Gastrointestinal: non-tender, soft Musculoskeletal: muscle tone (normal) Extremities: edema (none) Neurological: other (sedated) Results Result Diagram: 07/08/16 03307/08/16 033 Results 24 hrs Laboratory Tests Test 07/07/16 13:40 07/07/16 19:50 07/08/16 03:30 07/08/16 11:33 White Blood Count 11.5 H 13.4 H Red Blood Count 3.48 L 3.38 L Hemoglobin 10.8 L 10.4 L Hematocrit 31.7 L 31.2 L Mean Corpuscular Volume 91.1 92.3 Mean Corpuscular Hemoglobin 31.0 30.8 Mean Corpuscular Hemoglobin Concent 34.1 33.3 Red Cell Distribution Width 12.7 12.7 Platelet Count 308 353 Mean Platelet Volume 9.1 9.1 Neutrophils % 70.1 64.5 Lymphocytes % 14.2 L 18.8 Monocytes % 8.5 8.6 Eosinophils % 4.8 5.0 Basophils % 0.3 0.4 Nucleated Red Blood Cells % 0.0 0.0 Neutrophils # 8.0 H 8.6 H Lymphocytes # 1.6 2.5 Monocytes # 1.0 H 1.2 H Eosinophils # 0.6 H 0.7 H Basophils # 0.0 0.1 Nucleated Red Blood Cells # 0.0 0.0 Prothrombin Time 12.8 Prothrombin Time Ratio 1.0 INR International Normalized Ratio 0.96 Activated Partial Thromboplast Time 32.2 48.5 H 46.2 H 83.9 *H Sodium Level 137 Potassium Level 3.9 Chloride Level 101 Carbon Dioxide Level 29 Anion Gap 11 Blood Urea Nitrogen 19 Creatinine 0.91 Glucose Level 126 # Calcium Level 8.8 Magnesium Level 2.5 Medications Medications Current Medications Famotidine (Pepcid Iv) 20 mg Q12 IV Last administered on 07/08/16t 08:08; Admin Dose 20 MG; Start 06/28/16 at 21:00 Meperidine HCl (Demerol) 25 mg Q4H PRN IV shivering post hypothermia pro Last administered on 06/29/16 14:44; Admin Dose 25 MG; Start 06/29/16 at 14:30 Dicyclomine HCl (Bentyl) 20 mg Q6H PRN NGT Hiccups Last administered on 09:54; Admin Dose 20 MG; Start 06/30/16 at 06:30 Miscellaneous Information 1 ea NOTE XX ; Start 06/30/16 at 09:30 Atorvastatin Calcium (Lipitor) 80 mg DAILY PO Last administered on 07/08/16 08 :21; Admin Dose 80 MG; Start 06/30/16 at 09:30 Acetaminophen 650 mg 650 mg Q6 PRN NGT PAIN AND OR ELEVATED TEMP Last administered on 07/05/16 21:05; Admin Dose 650 MG; Start 06/30/16 at 11:00 Dobutamine HCl/ Dextrose 250 ml @ 11.25 mls/ hr TITRATE IV Last administered on 07/08/16 08:13; Admin Dose 4.5 MLS/HR; Start 06/30/16 at 16:30 Lorazepam 2 mg 2 mg Q1HWA PRN IV AGITATION Last administered on 07/08/16 06:49 ; Admin Dose 2 MG; Start 06/30/16 at 17:30 Propofol (Diprivan) 100 ml @ 2.25 mls/hr Q12H IV Last administered on 11:47; Admin Dose 22.5 MLS/HR; Start 06/30/16 at 17:30 Acetaminophen (Tylenol Supp) 1,000 mg Q6H PRN MD Fever Last administered on 04:03; Admin Dose 1,000 MG; Start 06/30/16 at 21:30 Amiodarone HCl (Cordarone) 400 mg BID PO Last administered on 07/08/16 10:07; Admin Dose 400 MG; Start 07/01/16 at 11:00 Aspirin 81 mg 81 mg DAILY NGT Last administered on 07/08/16 08:21; Admin Dose 81 MG; Start 07/02/16 at 09:00 Norepinephrine/ Dextrose (Levophed/D5W) 500 ml @ 1.87 mls/hr TITRATE IV ; Start 07/03/16 at 11:30 Furosemide 40 mg 40 mg Q8H IV Last administered on 07/08/16 04:39; Admin Dose 40 MG; Start 07/03/16 at 21:00 Fentanyl 100 ml @ 2.5 mls/hr TITRATE IV Last administered on 07/08/16 08:16; Admin Dose 10 MLS/HR; Start 07/03/16 at 18:00 Midazolam HCl 50 ml @ 1 mls/hr TITRATE IV Last administered on 07/08/16 10:07 ; Admin Dose 3 MLS/HR; Start 07/03/16 at 18:00; Status Future hold Vancomycin HCl (Vancocin) 250 ml @ 125 mls/hr Q8H IVPB Last administered on 11:52; Admin Dose 125 MLS/HR; Start 07/04/16 at 20:00 Acetaminophen (Tylenol Tab) 650 mg Q4H PRN PO NON-CARDIAC PAIN LEVEL (1-3); Start 07/06/16 at 10:30 Morphine Sulfate (morphine) 2 mg Q2H PRN IV FOR NON CARDIAC PAIN (4-10); Start 07/06/16 at 10:30 Al Hydrox/Mg Hydrox/Simethicone (Mag-Al Plus) 30 ml Q4H PRN PO GASTROINTESTINAL UPSET; Start 07/06/16 at 10:30 Ondansetron HCl (Zofran Inj) 4 mg Q4H PRN IV NAUSEA AND/OR VOMITING; Start at 10:30 Potassium Chloride 40 meq 40 meq DAILY GTB Last administered on 07/08/16 08:21 ; Admin Dose 40 MEQ; Start 07/07/16 at 15:00 Cefepime HCl (Maxipime 1gm/50 ml (Pmx)) 50 ml @ 100 mls/hr Q12 IVPB Last administered on 07/08/16 08:21; Admin Dose 100 MLS/HR; Start 07/07/16 at 21:00 ELIGIO TYSON Jul 08, 2016 13:05
--- NOTE | 2016-07-08 14:42 | CONS ---
Date/Time of Note Date/Time of Note DATE: 07/08/16 TIME: 14:31 Assessment/Plan Assessment/Plan Chief Complaint/Hosp Course ID PROGRESS NOTE TOTAL ABX DAY #9 => Vanco IV #9, Cefepime #2 Merrem #5-> DC 07/07 Zosyn->DC'd 07/02 POD #2 [facility] 07/06=>(+)3V-CAD: 100% RCA/LCX both seen via collateral flow and 90-95 % prox LAD 24H INTERVAL SUMMARY * Doing well -- WBC up slightly post [facility], no fevers, plan is to keep him intubated prior to CABG * CXR 07/08/16 Patchy left greater than right air space disease is unchanged in distribution and extent. No pleural effusions are identified. PHYSICAL EXAMINATION: GENERAL: 36 yo M, awake, alert, orally intubated, responds to verbal stimuli HEENT: ETT/NGT -> Secure NECK: Supple, trach-> midline CHEST: Equal chest rise bilaterally, scattered rhonchi HEART: Pulse RRR ABDOMEN: Soft, BX (+) EXTREMITIES: Warm, (+)Tattoos legs SKIN: Warm, dry ID ASSESSMENT: 36 yo [place] M found down in field 06/28/16 witnessed arrest->CPR started by witnesses in field immediately 1. Status post ventricular fibrillation cardiac arrest with ROSC. * s/p hypothermia protocol 2. NSTEMI-> CAD * POD #2 [facility] 07/06=>(+)3V-CAD: 100% RCA/LCX both seen via collateral flow and 90- 95% prox LAD 3. Acute pulmonary edema w/severe systolic dysfunction with EF of 15 to 20% . 4. Shock likely septic with a cardiogenic component : 5. Sepsis vs SIRS w/Fevers 102.+, leukocytosis => ASP HCAP * BCx & Urine Cx on admission (-) * Repeat Blood, urine, respiratory cx pending 6. Vent dependent respiratory failure secondary to cardiac arrest.Pulmonary edema. 7. Bilateral pneumonia, possibly from aspiration. * CXRs last 2 days w/ progression: Mildly increased prominence of diffuse bilateral air space opacities and consolidations. 8. Acute kidney injury, resolved. 9. Rhabdomyolysis: improving 10. Chronic Tobacco user 11. Hyperglycemia : A1C 5.7: resolved ( )MRSA Nares = pending INVASIVES: * ETT, NGT, FC, R-IJ TLC ABX ALLERGIES: KNDA CURRENT ABX: TOTAL ABX DAY #9 => Vanco IV #9, Cefepime #2 Merrem #5-> DC 07/07 ID RECOMMENDATIONS: 1. Repeat BCx, UA, Urine, respiratory cx (-) * MRSA screen still pending? 2. ABX TAPERED: Merrem tapered->Cefepime, Continue Vanco IV -- WBC rising post taper -- will repeat sputum if continues to rise * Pt presented with sepsis, has evidence residual PNA, invasive lines, now pending CABG * Continue ABX coverage while invasive lines, tubes are present pending resolution of sepsis/PNA prior to CABG . . . Problems: Consultation Date/Type/Reason Admit Date/Time Jun 28, 2016 at 20:48 Initial Consult Date 06/29/16 Type of Consultation: ID Referring Provider: CHRISTINA JOSEPH Exam/Review of Systems Vital Signs Vitals Vital Signs Date Time Temp Pulse Resp B/P Pulse Ox O2 Delivery O2 Flow Rate FiO2 07/08/16 13:24 67 18 100 40 07/08/16 12:15 98.8 122/71 Mechanical Ventilator Intake and Output 07/07/16 07/07/16 07/08/16 15:00 23:00 07:00 Intake Total 537.00 ml 959.0 ml 964.5 ml Output Total 1975 ml 720 ml 720 ml Balance -1438.00 ml 239.0 ml 244.5 ml Results Result Diagram: 07/08/16 0330 07/08/16 0330 Results 24 hrs Laboratory Tests Test 07/07/16 19:50 07/08/16 03:30 07/08/16 11:33 Activated Partial Thromboplast Time 48.5 H 46.2 H 83.9 *H White Blood Count 13.4 H Red Blood Count 3.38 L Hemoglobin 10.4 L Hematocrit 31.2 L Mean Corpuscular Volume 92.3 Mean Corpuscular Hemoglobin 30.8 Mean Corpuscular Hemoglobin Concent 33.3 Red Cell Distribution Width 12.7 Platelet Count 353 Mean Platelet Volume 9.1 Neutrophils % 64.5 Lymphocytes % 18.8 Monocytes % 8.6 Eosinophils % 5.0 Basophils % 0.4 Nucleated Red Blood Cells % 0.0 Neutrophils # 8.6 H Lymphocytes # 2.5 Monocytes # 1.2 H Eosinophils # 0.7 H Basophils # 0.1 Nucleated Red Blood Cells # 0.0 Sodium Level 137 Potassium Level 3.9 Chloride Level 101 Carbon Dioxide Level 29 Anion Gap 11 Blood Urea Nitrogen 19 Creatinine 0.91 Glucose Level 126 # Calcium Level 8.8 Magnesium Level 2.5 Medications Medications Current Medications Famotidine (Pepcid Iv) 20 mg Q12 IV Last administered on 07/08/16 08:08; Admin Dose 20 MG; Start 06/28/16 at 21:00 Meperidine HCl (Demerol) 25 mg Q4H PRN IV shivering post hypothermia pro Last administered on 06/29/16 14:44; Admin Dose 25 MG; Start 06/29/16 at 14:30 Dicyclomine HCl (Bentyl) 20 mg Q6H PRN NGT Hiccups Last administered on 09:54; Admin Dose 20 MG; Start 06/30/16 at 06:30 Miscellaneous Information 1 ea NOTE XX ; Start 06/30/16 at 09:30 Atorvastatin Calcium (Lipitor) 80 mg DAILY PO Last administered on 07/08/16 08 :21; Admin Dose 80 MG; Start 06/30/16 at 09:30 Acetaminophen 650 mg 650 mg Q6 PRN NGT PAIN AND OR ELEVATED TEMP Last administered on 07/05/16 21:05; Admin Dose 650 MG; Start 06/30/16 at 11:00 Dobutamine HCl/ Dextrose 250 ml @ 11.25 mls/ hr TITRATE IV Last administered on 07/08/16 08:13; Admin Dose 4.5 MLS/HR; Start 06/30/16 at 16:30 Lorazepam 2 mg 2 mg Q1HWA PRN IV AGITATION Last administered on 07/08/16 06:49 ; Admin Dose 2 MG; Start 06/30/16 at 17:30 Propofol (Diprivan) 100 ml @ 2.25 mls/hr Q12H IV Last administered on 11:47; Admin Dose 22.5 MLS/HR; Start 06/30/16 at 17:30 Acetaminophen (Tylenol Supp) 1,000 mg Q6H PRN [place] Fever Last administered on 04:03; Admin Dose 1,000 MG; Start 06/30/16 at 21:30 Amiodarone HCl (Cordarone) 400 mg BID PO Last administered on 07/08/16 10:07; Admin Dose 400 MG; Start 07/01/16 at 11:00 Aspirin 81 mg 81 mg DAILY NGT Last administered on 07/08/16 08:21; Admin Dose 81 MG; Start 07/02/16 at 09:00 Norepinephrine/ Dextrose (Levophed/D5W) 500 ml @ 1.87 mls/hr TITRATE IV ; Start 07/03/16 at 11:30 Furosemide 40 mg 40 mg Q8H IV Last administered on 07/08/16 04:39; Admin Dose 40 MG; Start 07/03/16 at 21:00 Fentanyl 100 ml @ 2.5 mls/hr TITRATE IV Last administered on 07/08/16 08:16; Admin Dose 10 MLS/HR; Start 07/03/16 at 18:00 Midazolam HCl 50 ml @ 1 mls/hr TITRATE IV Last administered on 07/08/16 10:07 ; Admin Dose 3 MLS/HR; Start 07/03/16 at 18:00; Status Future hold Vancomycin HCl (Vancocin) 250 ml @ 125 mls/hr Q8H IVPB Last administered on 11:52; Admin Dose 125 MLS/HR; Start 07/04/16 at 20:00 Acetaminophen (Tylenol Tab) 650 mg Q4H PRN PO NON-CARDIAC PAIN LEVEL (1-3); Start 07/06/16 at 10:30 Morphine Sulfate (morphine) 2 mg Q2H PRN IV FOR NON CARDIAC PAIN (4-10); Start 07/06/16 at 10:30 Al Hydrox/Mg Hydrox/Simethicone (Mag-Al Plus) 30 ml Q4H PRN PO GASTROINTESTINAL UPSET; Start 07/06/16 at 10:30 Ondansetron HCl (Zofran Inj) 4 mg Q4H PRN IV NAUSEA AND/OR VOMITING; Start at 10:30 Potassium Chloride 40 meq 40 meq DAILY GTB Last administered on 07/08/16 08:21 ; Admin Dose 40 MEQ; Start 07/07/16 at 15:00 Cefepime HCl (Maxipime 1gm/50 ml (Pmx)) 50 ml @ 100 mls/hr Q12 IVPB Last administered on 07/08/16t 08:21; Admin Dose 100 MLS/HR; Start 07/07/16 at 21:00 STONE NUGENT NP Jul 08, 2016 14:41
--- NOTE | 2016-07-08 16:18 | PN ---
Date/Time of Note Date/Time of Note DATE: 07/08/16 TIME: 16:17 Assessment/Plan Lines/Catheters IV Catheter Type (from Nrs): Central Line Cr in Place (from Nrs): Yes Assessment/Plan Chief Complaint/Hosp Course IMPRESSION: 1. Coronary artery disease. 2. Status post cardiac arrest. 3. Pulmonary edema, respiratory failure. 4. Aspiration pneumonia. 5. Resolving sepsis. RECOMMENDATIONS: The patient is not a candidate to undergo coronary artery bypass grafting at the present time. Would continue medical management. Abx. Will consider coronary artery bypass grafting when medically cleared. Problems: Subjective 24 Hr Interval Summary Constitutional: improved Pain Control: mild Exam/Review of Systems Vital Signs Vitals Vital Signs Date Time Temp Pulse Resp B/P Pulse Ox O2 Delivery O2 Flow Rate FiO2 07/08/16 16:00 98.4 63 18 121/74 100 Mechanical Ventilator 07/08/16 15:10 40 Intake and Output 07/07/16 07/07/16 07/08/16 15:00 23:00 07:00 Intake Total 537.00 ml 959.0 ml 964.5 ml Output Total 1975 ml 720 ml 720 ml Balance -1438.00 ml 239.0 ml 244.5 ml Exam Neck: non-tender, supple Respiratory: clear to auscultation, normal air movement Cardiovascular: nl pulses, regular rate and rhythm Gastrointestinal: nl liver, spleen, non-tender, soft Results Result Diagram: 07/08/16 0330 07/08/16 0330 JOHN TRIPP MD Jul 08, 2016 16:18
[2016-07-08 18:49] LABS: INR 0.96; PROTIME 12.8 Sec (12.2-14.2)
[2016-07-08 19:18] LABS: PARTIAL THROMBOPLASTIN TIME 75.6 Sec (25.0-35.0)
[2016-07-09] VITALS (81 sets, daily range): BP systolic 89–150; BP diastolic 50–114; PULSE 56–116; RESP 16–35
[2016-07-09] MEDS: PROPOFOL 100 ML IV SCH ×2 (01:12→08:15)
[2016-07-09] MEDS: FENTAnyl (DRIP) 1000 mcg/100mL 100 ML IV SCH (01:13)
[2016-07-09] MEDS: HEPARIN 25000 UNITS/250 ML 250 ML IV SCH ×3 (02:43→19:54)
[2016-07-09 02:45] LABS: ADD SCAN DIFF NO
[2016-07-09 02:47] LABS: BASOPHIL # 0.1 10^3/ul (0.0-0.1); BASOPHILS % 0.4 % (0.0-2.0); EOSINOPHILS # 0.7 10^3/ul (0.0-0.5); LYMPHOCYTES # 2.6 10^3/ul (0.8-2.9); LYMPHOCYTES % 18.9 % (15.0-51.0); MEAN CORPUSCULAR HEMOGLOBIN 30.8 pg (29.0-33.0); MEAN CORPUSCULAR HGB CONC 33.3 g/dl (32.0-37.0); MEAN CORPUSCULAR VOLUME 92.3 fl (82.0-101.0); MONOCYTE # 1.2 10^3/ul (0.3-0.9); MONOCYTES % 8.6 % (0.0-11.0); NEUTROPHIL # 8.9 10^3/ul (1.6-7.5); NEUTROPHILS % 63.7 % (39.0-77.0); PLATELET COUNT 343 10^3/UL (140-415); RED BLOOD COUNT 3.25 10^6/ul (4.70-6.10); RED CELL DISTRIBUTION WIDTH 12.8 % (11.5-14.5); WHITE BLOOD COUNT 13.9 10^3/ul (4.8-10.8)
[2016-07-09 02:56] LABS: POTASSIUM 3.8 mmol/L (3.5-5.1)
[2016-07-09 02:58] LABS: CREATININE 0.91 mg/dl (0.61-1.24)
[2016-07-09 02:59] LABS: CALCIUM 8.6 mg/dl (8.4-10.2); MAGNESIUM 2.3 mg/dl (1.7-2.5)
[2016-07-09] MEDS: VANCOMYCIN 1 GM in NS 250 ML IVPB SCH ×3 (05:02→19:58)
[2016-07-09] MEDS: FUROSEMIDE 40 MG INJ IV SCH ×3 (05:02→19:58)
[2016-07-09] MEDS: POTASSIUM CHLORIDE 50 ML IVPB PRN (06:53)
--- NOTE | 2016-07-09 08:11 | CONS ---
Date/Time of Note Date/Time of Note DATE: 07/09/16 TIME: 08:09 Assessment/Plan Assessment/Plan Additional Assessment/Plan Chest x-ray from today is pending, next Ventilator settings; AC of 18, tidal volume 550, PEEP of 8, 40% FiO2. Patient currently on dobutamine at 2 mics per kilogram per minute, fentanyl 100 mics per hour, Versed 3 mg/h, propofol 40 mics per kilogram per minute, and IV heparin via protocol. Assessment recommendations; 1. Patient admitted with acute AR status post angiography revealing diffuse coronary artery disease not immediately amenable to angioplasty. 2. Pulmonary edema and bilateral pneumonia with marked radiological improvement. Stop sedation, when the patient is off sedation he will be evaluated for possible weaning from ventilator. Meanwhile coronary artery bypass surgery is being contemplated. Consultation Date/Type/Reason Admit Date/Time Jun 28, 2016 at 20:48 Initial Consult Date 06/29/16 Type of Consultation: Pulmonary/critical care Referring Provider: CHRISTINA JOSEPH 24 HR Interval Summary Free Text/Dictation Patient condition remains critical. Still on full ventilator support. Despite being on sedation patient is completely awake and alert and follows commands. General exam; young male, orally intubated, awake and alert. Currently in no distress. Exam/Review of Systems Vital Signs Vitals Vital Signs Date Time Temp Pulse Resp B/P Pulse Ox O2 Delivery O2 Flow Rate FiO2 07/09/16 07:16 63 19 100 40 07/09/16 07:00 110/68 Mechanical Ventilator 07/09/16 04:00 98.7 Intake and Output 07/08/16 07/08/16 07/09/16 15:00 23:00 07:00 Intake Total 2502.5 ml 1233.0 ml 1007.0 ml Output Total 420 ml 680 ml 1020 ml Balance 2082.5 ml 553.0 ml -13.0 ml Exam HEENT exam is; supple neck, positive JVD. No lymphadenopathy. Midline trachea. No thyromegaly. Patient has good dentition. Pupils are midsize reactive to light. No neck masses. No neck bruits. Chest examination; clear to auscultation. S1-S2 audible, no murmurs. Regular rhythm. Abdomen examination; soft, nondistended, no organomegaly, nontender. Bowel sounds audible. Extremity examination; no peripheral edema. Pulses 1+ bilaterally. [employer] examination; patient is awake alert follows commands and moves all 4 extremities. Results Result Diagram: 07/09/1621307/09/16 0214 Results 24 hrs Laboratory Tests Test 07/08/16 11:33 07/08/16 18:15 07/09/16 02:14 Activated Partial Thromboplast Time 83.9 *H 75.6 *H 70.9 *H Prothrombin Time 12.8 Prothrombin Time Ratio 1.0 INR International Normalized Ratio 0.96 Potassium Level 3.7 3.8 White Blood Count 13.9 H Red Blood Count 3.25 L Hemoglobin 10.0 L Hematocrit 30.0 L Mean Corpuscular Volume 92.3 Mean Corpuscular Hemoglobin 30.8 Mean Corpuscular Hemoglobin Concent 33.3 Red Cell Distribution Width 12.8 Platelet Count 343 Mean Platelet Volume 9.0 Neutrophils % 63.7 Lymphocytes % 18.9 Monocytes % 8.6 Eosinophils % 5.0 Basophils % 0.4 Nucleated Red Blood Cells % 0.0 Neutrophils # 8.9 H Lymphocytes # 2.6 Monocytes # 1.2 H Eosinophils # 0.7 H Basophils # 0.1 Nucleated Red Blood Cells # 0.0 Sodium Level 141 Chloride Level 104 Carbon Dioxide Level 26 Anion Gap 15 Blood Urea Nitrogen 19 Creatinine 0.91 Glucose Level 114 Calcium Level 8.6 Magnesium Level 2.3 Medications Medications Current Medications Famotidine (Pepcid Iv) 20 mg Q12 IV Last administered on 07/08/16 20:54; Admin Dose 20 MG; Start 06/28/16 at 21:00 Meperidine HCl (Demerol) 25 mg Q4H PRN IV shivering post hypothermia pro Last administered on 06/29/16 14:44; Admin Dose 25 MG; Start 06/29/16 at 14:30 Dicyclomine HCl (Bentyl) 20 mg Q6H PRN NGT Hiccups Last administered on 09:54; Admin Dose 20 MG; Start 06/30/16 at 06:30 Miscellaneous Information 1 ea NOTE XX ; Start 06/30/16 at 09:30 Atorvastatin Calcium (Lipitor) 80 mg DAILY PO Last administered on 07/08/16 08 :21; Admin Dose 80 MG; Start 06/30/16 at 09:30 Acetaminophen 650 mg 650 mg Q6 PRN NGT PAIN AND OR ELEVATED TEMP Last administered on 07/05/16 21:05; Admin Dose 650 MG; Start 06/30/16 at 11:00 Dobutamine HCl/ Dextrose 250 ml @ 11.25 mls/ hr TITRATE IV Last administered on 07/08/16 08:13; Admin Dose 4.5 MLS/HR; Start 06/30/16 at 16:30 Lorazepam 2 mg 2 mg Q1HWA PRN IV AGITATION Last administered on 07/08/16 06:49 ; Admin Dose 2 MG; Start 06/30/16 at 17:30 Propofol (Diprivan) 100 ml @ 2.25 mls/hr Q12H IV Last administered on 01:12; Admin Dose 18 MLS/HR; Start 06/30/16 at 17:30 Acetaminophen (Tylenol Supp) 1,000 mg Q6H PRN [place] Fever Last administered on 04:03; Admin Dose 1,000 MG; Start 06/30/16 at 21:30 Amiodarone HCl (Cordarone) 400 mg BID PO Last administered on 07/08/16 20:55; Admin Dose 400 MG; Start 07/01/16 at 11:00 Aspirin 81 mg 81 mg DAILY NGT Last administered on 07/08/16 08:21; Admin Dose 81 MG; Start 07/02/16 at 09:00 Norepinephrine/ Dextrose (Levophed/D5W) 500 ml @ 1.87 mls/hr TITRATE IV ; Start 07/03/16 at 11:30 Furosemide 40 mg 40 mg Q8H IV Last administered on 07/09/16 05:02; Admin Dose 40 MG; Start 07/03/16 at 21:00 Fentanyl 100 ml @ 2.5 mls/hr TITRATE IV Last administered on 07/09/16 01:13; Admin Dose 10 MLS/HR; Start 07/03/16 at 18:00 Midazolam HCl 50 ml @ 1 mls/hr TITRATE IV Last administered on 07/08/16 23:08 ; Admin Dose 5 MLS/HR; Start 07/03/16 at 18:00; Status Future hold Vancomycin HCl (Vancocin) 250 ml @ 125 mls/hr Q8H IVPB Last administered on 05:02; Admin Dose 125 MLS/HR; Start 07/04/16 at 20:00 Acetaminophen (Tylenol Tab) 650 mg Q4H PRN PO NON-CARDIAC PAIN LEVEL (1-3); Start 07/06/16 at 10:30 Morphine Sulfate (morphine) 2 mg Q2H PRN IV FOR NON CARDIAC PAIN (4-10); Start 07/06/16 at 10:30 Al Hydrox/Mg Hydrox/Simethicone (Mag-Al Plus) 30 ml Q4H PRN PO GASTROINTESTINAL UPSET; Start 07/06/16 at 10:30 Ondansetron HCl (Zofran Inj) 4 mg Q4H PRN IV NAUSEA AND/OR VOMITING; Start at 10:30 Potassium Chloride 40 meq 40 meq DAILY GTB Last administered on 07/08/16 08:21 ; Admin Dose 40 MEQ; Start 07/07/16 at 15:00 Cefepime HCl (Maxipime 1gm/50 ml (Pmx)) 50 ml @ 100 mls/hr Q12 IVPB Last administered on 07/08/16 20:54; Admin Dose 100 MLS/HR; Start 07/07/16 at 21:00 Miscellaneous Information (*Rx Drug Level Order Reminder*) VANCO TR LEVEL PRIOR... ONCE ONCE XX ; Start 07/09/16 at 11:00; Stop 07/09/16 at 11:01 SARITHA RAYMUNDO Jul 09, 2016 08:11
[2016-07-09] MEDS: POTASSIUM CHLORIDE 20 MEQ POWDER FOR ORAL SOLN GTB SCH (08:14)
[2016-07-09] MEDS: CEFEPIME 1GM/50 ML (PMX) 50 ML IVPB SCH ×2 (08:14→21:13)
[2016-07-09] MEDS: ASPIRIN 81 MG TAB NGT SCH (08:15)
[2016-07-09] MEDS: ATORVASTATIN 80 MG TAB PO SCH (08:15)
[2016-07-09] MEDS: AMIODARONE 200 MG TAB PO SCH ×2 (08:15→19:59)
[2016-07-09] MEDS: FAMOTIDINE 20 MG INJ IV SCH ×2 (08:16→21:13)
--- NOTE | 2016-07-09 09:16 | PN ---
Date/Time of Note Date/Time of Note DATE: 07/09/16 TIME: 09:13 Assessment/Plan VTE Prophylaxis VTE Prophylaxis Intervention: heparin Lines/Catheters [facility] Central Line Central line still needed: Yes Urinary Cath still in place: Yes Reason Cath still needed: urinary retention Assessment/Plan Chief Complaint/Hosp Course Assessment/Plan: 36 M with: 1. Status post ventricular fibrillation cardiac arrest with ROSC - s/p hypothermia protocol. Now s/p LHC with multivessel ds found. - possible coronary artery bypass graft surgery when medically cleared, per CTS - Continue ventilator support and pressor support and wean off as tolerated. 2. NSTEMI - F/u cardiology plan re: NSTEMI - again see above had LHC. -continue heparin IV, f/u CV and CTS rec's - low dose dobutamine as well 3. Vent dependent respiratory failure secondary to cardiac arrest. - f/u pulm rec's, monitor 4. Shock likely septic with a cardiogenic component - on abx / f/u final cultures. On low dose dobutamine now. - continue abx, pressor - wean as tolerated 5. Severe systolic dysfunction with EF of 15 to 20% - Continue current medical management including Pepcid / Heparin / aspirin / antibiotics / diuresis 6. Pulmonary edema - monitor 7. Bilateral pneumonia, possibly from aspiration - abx 8. Chronic Tobacco user - educate about cessation when awake 10. Acute kidney injury, resolved. 11. Hyperglycemia : A1C 5.7: resolved 12. Rhabdomyolysis: improving - monitor * Replace electrolytes and closely monitor * Further workup and management per clinical course. Critical Care time = 40 mins Problems: Subjective 24 Hr Interval Summary Free Text/Dictation Pt still intubated, on heparin IV, pressor. Exam/Review of Systems Vital Signs Vitals Vital Signs Date Time Temp Pulse Resp B/P Pulse Ox O2 Delivery O2 Flow Rate FiO2 07/09/16 08:30 71 18 116/73 100 Mechanical Ventilator 07/09/16 08:00 98.9 07/09/16 07:16 40 Intake and Output 07/08/16 07/08/16 07/09/16 15:00 23:00 07:00 Intake Total 2502.5 ml 1233.0 ml 1007.0 ml Output Total 420 ml 680 ml 1020 ml Balance 2082.5 ml 553.0 ml -13.0 ml Exam Constitutional: alert, other (comfortable on vent) Head: normocephalic Eyes: PERRL ENMT: intubated Respiratory: clear to auscultation Cardiovascular: regular rate and rhythm, No murmurs/extra sounds Gastrointestinal: bowel sounds, non-tender, other (tolerating PEG feeds), soft Genitourinary - Male: other (clarke ) Extremities: No edema Neurological: nl mental status Skin: No rash or lesions Results Result Diagram: 07/09/1621307/09/16 0214 Results 24 hrs Laboratory Tests Test 07/08/16 11:33 07/08/16 18:15 07/09/16 02:14 Activated Partial Thromboplast Time 83.9 *H 75.6 *H 70.9 *H Prothrombin Time 12.8 Prothrombin Time Ratio 1.0 INR International Normalized Ratio 0.96 Potassium Level 3.7 3.8 White Blood Count 13.9 H Red Blood Count 3.25 L Hemoglobin 10.0 L Hematocrit 30.0 L Mean Corpuscular Volume 92.3 Mean Corpuscular Hemoglobin 30.8 Mean Corpuscular Hemoglobin Concent 33.3 Red Cell Distribution Width 12.8 Platelet Count 343 Mean Platelet Volume 9.0 Neutrophils % 63.7 Lymphocytes % 18.9 Monocytes % 8.6 Eosinophils % 5.0 Basophils % 0.4 Nucleated Red Blood Cells % 0.0 Neutrophils # 8.9 H Lymphocytes # 2.6 Monocytes # 1.2 H Eosinophils # 0.7 H Basophils # 0.1 Nucleated Red Blood Cells # 0.0 Sodium Level 141 Chloride Level 104 Carbon Dioxide Level 26 Anion Gap 15 Blood Urea Nitrogen 19 Creatinine 0.91 Glucose Level 114 Calcium Level 8.6 Magnesium Level 2.3 Medications Medications Current Medications Famotidine (Pepcid Iv) 20 mg Q12 IV Last administered on 07/09/16 08:16; Admin Dose 20 MG; Start 06/28/16 at 21:00 Meperidine HCl (Demerol) 25 mg Q4H PRN IV shivering post hypothermia pro Last administered on 06/29/16 14:44; Admin Dose 25 MG; Start 06/29/16 at 14:30 Dicyclomine HCl (Bentyl) 20 mg Q6H PRN NGT Hiccups Last administered on 09:54; Admin Dose 20 MG; Start 06/30/16 at 06:30 Miscellaneous Information 1 ea NOTE XX ; Start 06/30/16 at 09:30 Atorvastatin Calcium (Lipitor) 80 mg DAILY PO Last administered on 07/09/16 08 :15; Admin Dose 80 MG; Start 06/30/16 at 09:30 Acetaminophen 650 mg 650 mg Q6 PRN NGT PAIN AND OR ELEVATED TEMP Last administered on 07/05/16 21:05; Admin Dose 650 MG; Start 06/30/16 at 11:00 Dobutamine HCl/ Dextrose 250 ml @ 11.25 mls/ hr TITRATE IV Last administered on 07/08/16 08:13; Admin Dose 4.5 MLS/HR; Start 06/30/16 at 16:30 Lorazepam 2 mg 2 mg Q1HWA PRN IV AGITATION Last administered on 07/08/16 06:49 ; Admin Dose 2 MG; Start 06/30/16 at 17:30 Propofol (Diprivan) 100 ml @ 2.25 mls/hr Q12H IV Last administered on 08:15; Admin Dose 18 MLS/HR; Start 06/30/16 at 17:30 Acetaminophen (Tylenol Supp) 1,000 mg Q6H PRN [place] Fever Last administered on 04:03; Admin Dose 1,000 MG; Start 06/30/16 at 21:30 Amiodarone HCl (Cordarone) 400 mg BID PO Last administered on 07/09/16 08:15; Admin Dose 400 MG; Start 07/01/16 at 11:00 Aspirin 81 mg 81 mg DAILY NGT Last administered on 07/09/16 08:15; Admin Dose 81 MG; Start 07/02/16 at 09:00 Norepinephrine/ Dextrose (Levophed/D5W) 500 ml @ 1.87 mls/hr TITRATE IV ; Start 07/03/16 at 11:30 Furosemide 40 mg 40 mg Q8H IV Last administered on 07/09/16 05:02; Admin Dose 40 MG; Start 07/03/16 at 21:00 Fentanyl 100 ml @ 2.5 mls/hr TITRATE IV Last administered on 07/09/16 01:13; Admin Dose 10 MLS/HR; Start 07/03/16 at 18:00 Midazolam HCl 50 ml @ 1 mls/hr TITRATE IV Last administered on 07/08/16 23:08 ; Admin Dose 5 MLS/HR; Start 07/03/16 at 18:00; Status Future hold Vancomycin HCl (Vancocin) 250 ml @ 125 mls/hr Q8H IVPB Last administered on 05:02; Admin Dose 125 MLS/HR; Start 07/04/16 at 20:00 Acetaminophen (Tylenol Tab) 650 mg Q4H PRN PO NON-CARDIAC PAIN LEVEL (1-3); Start 07/06/16 at 10:30 Morphine Sulfate (morphine) 2 mg Q2H PRN IV FOR NON CARDIAC PAIN (4-10); Start 07/06/16 at 10:30 Al Hydrox/Mg Hydrox/Simethicone (Mag-Al Plus) 30 ml Q4H PRN PO GASTROINTESTINAL UPSET; Start 07/06/16 at 10:30 Ondansetron HCl (Zofran Inj) 4 mg Q4H PRN IV NAUSEA AND/OR VOMITING; Start at 10:30 Potassium Chloride 40 meq 40 meq DAILY GTB Last administered on 07/09/16 08:14 ; Admin Dose 40 MEQ; Start 07/07/16 at 15:00 Cefepime HCl (Maxipime 1gm/50 ml (Pmx)) 50 ml @ 100 mls/hr Q12 IVPB Last administered on 07/09/16 08:14; Admin Dose 100 MLS/HR; Start 07/07/16 at 21:00 Miscellaneous Information (*Rx Drug Level Order Reminder*) VANCO TR LEVEL PRIOR... ONCE ONCE XX ; Start 07/09/16 at 11:00; Stop 07/09/16 at 11:01 BLACK CALVO Jul 09, 2016 09:16
--- NOTE | 2016-07-09 11:08 | CONS ---
Date/Time of Note Date/Time of Note DATE: 07/09/16 TIME: 11:03 Assessment/Plan Assessment/Plan Chief Complaint/Hosp Course IMPRESSION: 1. Positive troponin, consistent with a non-ST elevation myocardial infarction. -Peaked at 40 and now downtrending significantly. Now post-op s/p diagnostic LHC 07/06 with 3vd 100% RCA/LCX both seen via collateral flow and 90-95% prox LAD 2. Status post cardiac arrest. 3. Cardiomyopathy, with a severely depressed left ventricular ejection fraction of approximately 15% to 20% by echo on this admission. s/p repeat Echo 07/06 limited EF now 25-30% 4. Respiratory failure. Status post intubation. 5. Ventricular fibrillation arrest, witnessed, status post defibrillator x1. 6. Encephalopathy. 7. Leukocytosis. 8. Anemia. 9. Hypotension.-on dobutamine alone now 10.Fevers Recc: -Tele -Dobutamine now off and thus will follow BP/urine output closely -Continue heparin -Continue asa -Continue lasix diuresis and follow volume status closely -Follow for any recurrent bleeding -Continue PO amiodarone -Continue abx's and f/u cx data -Consideration fo cabg versus high risk mutivessel PCI with ventricular support with patient now to undergo cabg garrett early next week depending upon stability Problems: Consultation Date/Type/Reason Admit Date/Time Jun 28, 2016 at 20:48 Initial Consult Date 06/29/16 Type of Consultation: Cardiology Reason for Consultation cardiac arrest Referring Provider: CHRISTINA JOSEPH Exam/Review of Systems Vital Signs Vitals Vital Signs Date Time Temp Pulse Resp B/P Pulse Ox O2 Delivery O2 Flow Rate FiO2 07/09/16 10:00 74 18 109/71 100 Mechanical Ventilator 07/09/16 08:00 40 07/09/16 08:00 98.9 Intake and Output 07/08/16 07/08/16 07/09/16 15:00 23:00 07:00 Intake Total 2502.5 ml 1233.0 ml 1007.0 ml Output Total 420 ml 680 ml 1020 ml Balance 2082.5 ml 553.0 ml -13.0 ml Exam Review of Systems: CONSTITUTIONAL: No fevers, chills. PULMONARY: No sob CARDIOVASCULAR: No chest pain/palpitations GASTROINTESTINAL: No nausea/vomiting. GENITOURINARY: No hematuria/dysuria. MUSCULOSKELETAL: No myagias/arthalgias. PSYCHIATRIC: The patient denies depression. NEUROLOGIC: No weakness Constitutional: alert, oriented Psych: no complaints Head: normocephalic ENMT: mucosa pink and moist Neck: jvd (9 cm water), supple Respiratory: diminished breath sounds (at bases/B) Cardiovascular: regular rate and rhythm Gastrointestinal: non-tender, soft Musculoskeletal: muscle tone (normal) Extremities: edema (none) Neurological: other (No focal deficits) Results Result Diagram: 07/09/1621307/09/16213 Results 24 hrs Laboratory Tests Test 07/08/16 11:33 07/08/16 18:15 07/09/16 02:14 07/09/16 10:40 Activated Partial Thromboplast Time 83.9 *H 75.6 *H 70.9 *H 32.0 Prothrombin Time 12.8 Prothrombin Time Ratio 1.0 INR International Normalized Ratio 0.96 Potassium Level 3.7 3.8 White Blood Count 13.9 H Red Blood Count 3.25 L Hemoglobin 10.0 L Hematocrit 30.0 L Mean Corpuscular Volume 92.3 Mean Corpuscular Hemoglobin 30.8 Mean Corpuscular Hemoglobin Concent 33.3 Red Cell Distribution Width 12.8 Platelet Count 343 Mean Platelet Volume 9.0 Neutrophils % 63.7 Lymphocytes % 18.9 Monocytes % 8.6 Eosinophils % 5.0 Basophils % 0.4 Nucleated Red Blood Cells % 0.0 Neutrophils # 8.9 H Lymphocytes # 2.6 Monocytes # 1.2 H Eosinophils # 0.7 H Basophils # 0.1 Nucleated Red Blood Cells # 0.0 Sodium Level 141 Chloride Level 104 Carbon Dioxide Level 26 Anion Gap 15 Blood Urea Nitrogen 19 Creatinine 0.91 Glucose Level 114 Calcium Level 8.6 Magnesium Level 2.3 Medications Medications Current Medications Famotidine (Pepcid Iv) 20 mg Q12 IV Last administered on 07/09/16 08:16; Admin Dose 20 MG; Start 06/28/16 at 21:00 Meperidine HCl (Demerol) 25 mg Q4H PRN IV shivering post hypothermia pro Last administered on 06/29/16 14:44; Admin Dose 25 MG; Start 06/29/16 at 14:30 Dicyclomine HCl (Bentyl) 20 mg Q6H PRN NGT Hiccups Last administered on 09:54; Admin Dose 20 MG; Start 06/30/16 at 06:30 Miscellaneous Information 1 ea NOTE XX ; Start 06/30/16 at 09:30 Atorvastatin Calcium (Lipitor) 80 mg DAILY PO Last administered on 07/09/16 08 :15; Admin Dose 80 MG; Start 06/30/16 at 09:30 Acetaminophen 650 mg 650 mg Q6 PRN NGT PAIN AND OR ELEVATED TEMP Last administered on 07/05/16 21:05; Admin Dose 650 MG; Start 06/30/16 at 11:00 Dobutamine HCl/ Dextrose 250 ml @ 11.25 mls/ hr TITRATE IV Last administered on 07/08/16 08:13; Admin Dose 4.5 MLS/HR; Start 06/30/16 at 16:30 Lorazepam 2 mg 2 mg Q1HWA PRN IV AGITATION Last administered on 07/08/16 06:49 ; Admin Dose 2 MG; Start 06/30/16 at 17:30 Propofol (Diprivan) 100 ml @ 2.25 mls/hr Q12H IV Last administered on 08:15; Admin Dose 18 MLS/HR; Start 06/30/16 at 17:30 Acetaminophen (Tylenol Supp) 1,000 mg Q6H PRN [place] Fever Last administered on 04:03; Admin Dose 1,000 MG; Start 06/30/16 at 21:30 Amiodarone HCl (Cordarone) 400 mg BID PO Last administered on 07/09/16 08:15; Admin Dose 400 MG; Start 07/01/16 at 11:00 Aspirin 81 mg 81 mg DAILY NGT Last administered on 07/09/16 08:15; Admin Dose 81 MG; Start 07/02/16 at 09:00 Norepinephrine/ Dextrose (Levophed/D5W) 500 ml @ 1.87 mls/hr TITRATE IV ; Start 07/03/16 at 11:30 Furosemide 40 mg 40 mg Q8H IV Last administered on 07/09/16 05:02; Admin Dose 40 MG; Start 07/03/16 at 21:00 Fentanyl 100 ml @ 2.5 mls/hr TITRATE IV Last administered on 07/09/16 01:13; Admin Dose 10 MLS/HR; Start 07/03/16 at 18:00 Midazolam HCl 50 ml @ 1 mls/hr TITRATE IV Last administered on 07/08/16 23:08 ; Admin Dose 5 MLS/HR; Start 07/03/16 at 18:00; Status Future hold Vancomycin HCl (Vancocin) 250 ml @ 125 mls/hr Q8H IVPB Last administered on 05:02; Admin Dose 125 MLS/HR; Start 07/04/16 at 20:00 Acetaminophen (Tylenol Tab) 650 mg Q4H PRN PO NON-CARDIAC PAIN LEVEL (1-3); Start 07/06/16 at 10:30 Morphine Sulfate (morphine) 2 mg Q2H PRN IV FOR NON CARDIAC PAIN (4-10); Start 07/06/16 at 10:30 Al Hydrox/Mg Hydrox/Simethicone (Mag-Al Plus) 30 ml Q4H PRN PO GASTROINTESTINAL UPSET; Start 07/06/16 at 10:30 Ondansetron HCl (Zofran Inj) 4 mg Q4H PRN IV NAUSEA AND/OR VOMITING; Start at 10:30 Potassium Chloride 40 meq 40 meq DAILY GTB Last administered on 07/09/16 08:14 ; Admin Dose 40 MEQ; Start 07/07/16 at 15:00 Cefepime HCl (Maxipime 1gm/50 ml (Pmx)) 50 ml @ 100 mls/hr Q12 IVPB Last administered on 07/09/16 08:14; Admin Dose 100 MLS/HR; Start 07/07/16 at 21:00 ELIGIO TYSON Jul 09, 2016 11:08
[2016-07-09 12:07] LABS: INR 0.98
[2016-07-09 12:08] LABS: PARTIAL THROMBOPLASTIN TIME 36.2 Sec (25.0-35.0)
[2016-07-09] MEDS: HEPARIN 1000 UNITS/ML 10 ML INJ IV PRN (12:44)
[2016-07-09 13:10] LABS: Allen Test ACCEPTAB; Arterial Base Excess -1.6 mmol/L (-3.0-3); Arterial COHb 0.3 % (0.0-3.0); Arterial Fraction of Oxyhgb 97.7 % (93.0-99.0); Arterial HCO3 22.9 mmol/L (22.0-26.0); Arterial MetHb 0.3 % (0.0-1.5); Arterial Total Hemglobin 12.6 g/dl (12.0-18.0); Blood Gas PS 10; MODE VENT - CPAP
--- NOTE | 2016-07-09 14:27 | PN ---
Date/Time of Note Date/Time of Note DATE: 07/09/16 TIME: 14:26 Assessment/Plan Lines/Catheters IV Catheter Type (from Nrs): Central Line Cr in Place (from Nrs): Yes Assessment/Plan Chief Complaint/Hosp Course IMPRESSION: 1. Coronary artery disease. 2. Status post cardiac arrest. 3. Pulmonary edema, respiratory failure. 4. Aspiration pneumonia. 5. Resolving sepsis. RECOMMENDATIONS: The patient is not a candidate to undergo coronary artery bypass grafting at the present time. Would continue medical management. Abx. Will consider coronary artery bypass grafting when medically cleared. Possibly next week will check Echo Problems: Subjective 24 Hr Interval Summary Constitutional: improved Pain Control: mild Exam/Review of Systems Vital Signs Vitals Vital Signs Date Time Temp Pulse Resp B/P Pulse Ox O2 Delivery O2 Flow Rate FiO2 07/09/16 13:45 107 32 137/94 98 Nasal Cannula 07/09/16 13:35 4.0 07/09/16 12:00 99.0 07/09/16 10:47 40 Intake and Output 07/08/16 07/08/16 07/09/16 15:00 23:00 07:00 Intake Total 2502.5 ml 1233.0 ml 1007.0 ml Output Total 420 ml 680 ml 1020 ml Balance 2082.5 ml 553.0 ml -13.0 ml Exam ENMT: mucosa pink and moist, nl external ears & nose, nl lips & teeth, nl nasal mucosa & septum Neck: non-tender, supple Respiratory: clear to auscultation, normal air movement Cardiovascular: nl pulses, regular rate and rhythm Results Result Diagram: 07/09/16 0214 07/09/16 1040 JOHN TRIPP MD Jul 09, 2016 14:27
--- NOTE | 2016-07-09 18:04 | CONS ---
Date/Time of Note Date/Time of Note DATE: 07/09/16 TIME: 17:58 Assessment/Plan Assessment/Plan Chief Complaint/Hosp Course ID PROGRESS NOTE TOTAL ABX DAY #10 => Vanco IV #10, Cefepime #3, Flagyl #1 Merrem #5-> DC 07/07 Zosyn->DC'd 07/02 POD #2 [facility] 07/06=>(+)3V-CAD: 100% RCA/LCX both seen via collateral flow and 90-95 % prox LAD 24H INTERVAL SUMMARY * Doing well -- WBC up slightly post [facility], low grade temps * Appears plan is now to extubate, prior was told patient to remain intubated for pending CABG next week * CXR 07/08/16 Patchy left greater than right air space disease is unchanged in distribution and extent. No pleural effusions are identified. PHYSICAL EXAMINATION: GENERAL: 36 yo M, awake, alert, orally intubated, responds to verbal stimuli HEENT: ETT/NGT -> Secure NECK: Supple, trach-> midline CHEST: Equal chest rise bilaterally, scattered rhonchi HEART: Pulse RRR ABDOMEN: Soft, BX (+) EXTREMITIES: Warm, (+)Tattoos legs SKIN: Warm, dry ID ASSESSMENT: 36 yo [place] M found down in field 06/28/16 witnessed arrest->CPR started by witnesses in field immediately 1. Status post ventricular fibrillation cardiac arrest with ROSC. * s/p hypothermia protocol 2. NSTEMI-> CAD * POD #2 [facility] 07/06=>(+)3V-CAD: 100% RCA/LCX both seen via collateral flow and 90- 95% prox LAD 3. Acute pulmonary edema w/severe systolic dysfunction with EF of 15 to 20% . 4. Shock likely septic with a cardiogenic component : 5. Sepsis vs SIRS w/Fevers 102.+, leukocytosis => ASP HCAP * BCx & Urine Cx on admission (-) * Repeat Blood, urine, respiratory cx pending 6. Vent dependent respiratory failure secondary to cardiac arrest.Pulmonary edema. 7. Bilateral pneumonia, possibly from aspiration. * CXRs last 2 days w/ progression: Mildly increased prominence of diffuse bilateral air space opacities and consolidations. 8. Acute kidney injury, resolved. 9. Rhabdomyolysis: improving 10. Chronic Tobacco user 11. Hyperglycemia : A1C 5.7: resolved (- )MRSA Nares INVASIVES: * ETT, NGT, FC, R-IJ TLC ABX ALLERGIES: KNDA CURRENT ABX: #10 => Vanco IV #10, Cefepime #3, Flagyl #1 Merrem #5-> DC 07/07 ID RECOMMENDATIONS: 1. Appears plan is now to wean -- still has ETT with increased WBC persisting after Merrem tapered to Cefepime -- Repeat sputum via ETT prior to extubation * Continue ABX coverage while invasive lines, tubes are present pending resolution of sepsis/PNA prior to CABG * At risk anaerobic pathogens, add Flagyl NGT low dose . . . . Problems: Consultation Date/Type/Reason Admit Date/Time Jun 28, 2016 at 20:48 Initial Consult Date 06/29/16 Type of Consultation: ID Referring Provider: CHRISTINA JOSEPH Exam/Review of Systems Vital Signs Vitals Vital Signs Date Time Temp Pulse Resp B/P Pulse Ox O2 Delivery O2 Flow Rate FiO2 07/09/16 17:15 96 34 129/70 100 07/09/16 17:00 Nasal Cannula 07/09/16 16:00 99.1 07/09/16 13:35 4.0 07/09/16 10:47 40 Intake and Output 07/08/16 07/08/16 07/09/16 15:00 23:00 07:00 Intake Total 2502.5 ml 1233.0 ml 1007.0 ml Output Total 420 ml 680 ml 1020 ml Balance 2082.5 ml 553.0 ml -13.0 ml Results Result Diagram: 07/09/16 0214 07/09/16 1040 Results 24 hrs Laboratory Tests Test 07/08/16 18:15 07/09/16 02:14 07/09/16 10:40 07/09/16 11:40 Prothrombin Time 12.8 13.0 Prothrombin Time Ratio 1.0 1.0 INR International Normalized Ratio 0.96 0.98 Activated Partial Thromboplast Time 75.6 *H 70.9 *H 32.0 36.2 H Potassium Level 3.7 3.8 4.3 White Blood Count 13.9 H Red Blood Count 3.25 L Hemoglobin 10.0 L Hematocrit 30.0 L Mean Corpuscular Volume 92.3 Mean Corpuscular Hemoglobin 30.8 Mean Corpuscular Hemoglobin Concent 33.3 Red Cell Distribution Width 12.8 Platelet Count 343 Mean Platelet Volume 9.0 Neutrophils % 63.7 Lymphocytes % 18.9 Monocytes % 8.6 Eosinophils % 5.0 Basophils % 0.4 Nucleated Red Blood Cells % 0.0 Neutrophils # 8.9 H Lymphocytes # 2.6 Monocytes # 1.2 H Eosinophils # 0.7 H Basophils # 0.1 Nucleated Red Blood Cells # 0.0 Sodium Level 141 Chloride Level 104 Carbon Dioxide Level 26 Anion Gap 15 Blood Urea Nitrogen 19 Creatinine 0.91 Glucose Level 114 Calcium Level 8.6 Magnesium Level 2.3 Vancomycin Level Trough 14.2 Test 07/09/16 12:27 Blood Gas Specimen Source Blood arterial Arterial Blood Date Drawn 07/09/2016 1:00:08 PM Arterial Blood pH (Temp corrected) 7.396 Arterial Blood pCO2 (Temp correct) 38.2 Arterial Blood pO2 (Temp corrected) 135.3 H Arterial Blood HCO3 22.9 Arterial Blood Base Excess -1.6 Arterial Blood Oxygen Saturation 98.3 H Christ Test ACCEPTAB Arterial Blood Gas Puncture Site Right Radial Arterial Blood Carboxyhemoglobin 0.3 Arterial Blood Methemoglobin 0.3 Blood Gas A-a O2 Differential 106.0 H Oxyhemoglobin Percent 97.7 Total Hemoglobin 12.6 Blood Gas Temperature 37.0 Blood Gas Actual Respiration Rate 26 Blood Gas Modality VENT - CPAP FiO2 40.0 Blood Gas Tidal Volume 423.0 Blood Gas Low PEEP Setting 5.0 Blood Gas Pressure Support 10 Blood Gas Notified Whom CW Blood Gas Notified Time 07/09/2016 1:10:16 PM Medications Medications Current Medications Famotidine (Pepcid Iv) 20 mg Q12 IV Last administered on 07/09/16 08:16; Admin Dose 20 MG; Start 06/28/16 at 21:00 Meperidine HCl (Demerol) 25 mg Q4H PRN IV shivering post hypothermia pro Last administered on 06/29/16 14:44; Admin Dose 25 MG; Start 06/29/16 at 14:30 Dicyclomine HCl (Bentyl) 20 mg Q6H PRN NGT Hiccups Last administered on 09:54; Admin Dose 20 MG; Start 06/30/16 at 06:30 Miscellaneous Information 1 ea NOTE XX ; Start 06/30/16 at 09:30 Atorvastatin Calcium (Lipitor) 80 mg DAILY PO Last administered on 07/09/16 08 :15; Admin Dose 80 MG; Start 06/30/16 at 09:30 Acetaminophen 650 mg 650 mg Q6 PRN NGT PAIN AND OR ELEVATED TEMP Last administered on 07/05/16 21:05; Admin Dose 650 MG; Start 06/30/16 at 11:00 Dobutamine HCl/ Dextrose 250 ml @ 11.25 mls/ hr TITRATE IV Last administered on 07/08/16 08:13; Admin Dose 4.5 MLS/HR; Start 06/30/16 at 16:30 Lorazepam 2 mg 2 mg Q1HWA PRN IV AGITATION Last administered on 07/08/16 06:49 ; Admin Dose 2 MG; Start 06/30/16 at 17:30 Propofol (Diprivan) 100 ml @ 2.25 mls/hr Q12H IV Last administered on 08:15; Admin Dose 18 MLS/HR; Start 06/30/16 at 17:30 Acetaminophen (Tylenol Supp) 1,000 mg Q6H PRN [place] Fever Last administered on 04:03; Admin Dose 1,000 MG; Start 06/30/16 at 21:30 Amiodarone HCl (Cordarone) 400 mg BID PO Last administered on 07/09/16 08:15; Admin Dose 400 MG; Start 07/01/16 at 11:00 Aspirin 81 mg 81 mg DAILY NGT Last administered on 07/09/16 08:15; Admin Dose 81 MG; Start 07/02/16 at 09:00 Norepinephrine/ Dextrose (Levophed/D5W) 500 ml @ 1.87 mls/hr TITRATE IV ; Start 07/03/16 at 11:30 Furosemide 40 mg 40 mg Q8H IV Last administered on 07/09/16 12:44; Admin Dose 40 MG; Start 07/03/16 at 21:00 Fentanyl 100 ml @ 2.5 mls/hr TITRATE IV Last administered on 07/09/16 01:13; Admin Dose 10 MLS/HR; Start 07/03/16 at 18:00 Midazolam HCl 50 ml @ 1 mls/hr TITRATE IV Last administered on 07/08/16 23:08 ; Admin Dose 5 MLS/HR; Start 07/03/16 at 18:00; Status Future hold Vancomycin HCl (Vancocin) 250 ml @ 125 mls/hr Q8H IVPB Last administered on 12:44; Admin Dose 125 MLS/HR; Start 07/04/16 at 20:00 Acetaminophen (Tylenol Tab) 650 mg Q4H PRN PO NON-CARDIAC PAIN LEVEL (1-3); Start 07/06/16 at 10:30 Morphine Sulfate (morphine) 2 mg Q2H PRN IV FOR NON CARDIAC PAIN (4-10); Start 07/06/16 at 10:30 Al Hydrox/Mg Hydrox/Simethicone (Mag-Al Plus) 30 ml Q4H PRN PO GASTROINTESTINAL UPSET; Start 07/06/16 at 10:30 Ondansetron HCl (Zofran Inj) 4 mg Q4H PRN IV NAUSEA AND/OR VOMITING; Start at 10:30 Potassium Chloride 40 meq 40 meq DAILY GTB Last administered on 07/09/16 08:14 ; Admin Dose 40 MEQ; Start 07/07/16 at 15:00 Cefepime HCl (Maxipime 1gm/50 ml (Pmx)) 50 ml @ 100 mls/hr Q12 IVPB Last administered on 07/09/16 08:14; Admin Dose 100 MLS/HR; Start 07/07/16 at 21:00 STONE NUGENT NP Jul 09, 2016 18:04
--- NOTE | 2016-07-09 18:53 | RADRPT ---
PROCEDURE: XR Chest. CLINICAL INDICATION: Shortness of breath. TECHNIQUE: Single frontal view. COMPARISON: 07/08/2016. FINDINGS: The endotracheal tube, nasogastric tube, and right internal jugular vein catheter remain in satisfac tory position. There is patchy bilateral pulmonary air space disease with left worse than right, un changed. The heart size is normal. There is no pleural effusion. There is no pneumothorax. IMPRESSION: 1. No change from 07/08/2016. RPTAT: QQ .Oscar Velazquez MD, MD Date Time Electronically viewed and signed by .Oscar Velazquez MD, MD on 07/09/2016 18:52 .R/
[2016-07-09 19:32] LABS: PROTIME 13.2 Sec (12.2-14.2)
[2016-07-09 19:44] LABS: PARTIAL THROMBOPLASTIN TIME 75.3 Sec (25.0-35.0)
[2016-07-09] MEDS: metroNIDAZOLE 250 MG TAB NGT SCH (21:13)
[2016-07-10] VITALS (24 sets, daily range): BP systolic 103–143; BP diastolic 67–106; PULSE 77–96; RESP 13–27
[2016-07-10] MEDS: FUROSEMIDE 40 MG INJ IV SCH ×3 (04:08→20:27)
[2016-07-10] MEDS: VANCOMYCIN 1 GM in NS 250 ML IVPB SCH ×3 (04:08→20:27)
[2016-07-10] MEDS: metroNIDAZOLE 250 MG TAB NGT SCH ×3 (05:10→23:02)
[2016-07-10 08:21] LABS: AADO2 Arterial 51.1 mmHg (7.0-24.0); Allen Test ACCEPTAB; Arterial Base Excess -1.1 mmol/L (-3.0-3); Arterial COHb 0.3 % (0.0-3.0); Arterial Fraction of Oxyhgb 97.5 % (93.0-99.0); Arterial HCO3 22.3 mmol/L (22.0-26.0); Arterial MetHb 0.3 % (0.0-1.5); Arterial Total Hemglobin 12.1 g/dl (12.0-18.0); MODE NASAL CANNULA
[2016-07-10 08:34] LABS: ADD SCAN DIFF NO
[2016-07-10 08:39] LABS: BASOPHIL # 0.1 10^3/ul (0.0-0.1); BASOPHILS % 0.3 % (0.0-2.0); EOSINOPHILS % 0.1 % (0.0-7.0); HEMATOCRIT 34.8 % (42.0-52.0); HEMOGLOBIN 11.5 g/dl (14.0-18.0); LYMPHOCYTES # 1.3 10^3/ul (0.8-2.9); LYMPHOCYTES % 7.5 % (15.0-51.0); MEAN CORPUSCULAR VOLUME 90.9 fl (82.0-101.0); MEAN PLATELET VOLUME 8.6 fl (7.4-10.4); MONOCYTE # 0.7 10^3/ul (0.3-0.9); MONOCYTES % 3.7 % (0.0-11.0); NEUTROPHIL # 15.5 10^3/ul (1.6-7.5); NEUTROPHILS % 86.7 % (39.0-77.0); PLATELET COUNT 433 10^3/UL (140-415); RED BLOOD COUNT 3.83 10^6/ul (4.70-6.10); RED CELL DISTRIBUTION WIDTH 12.7 % (11.5-14.5); WHITE BLOOD COUNT 17.8 10^3/ul (4.8-10.8)
[2016-07-10 08:50] LABS: POTASSIUM 3.2 mmol/L (3.5-5.1)
[2016-07-10 08:52] LABS: CREATININE 0.84 mg/dl (0.61-1.24)
[2016-07-10 08:53] LABS: CALCIUM 9.3 mg/dl (8.4-10.2)
[2016-07-10] MEDS: AMIODARONE 200 MG TAB PO SCH ×2 (09:31→20:28)
[2016-07-10] MEDS: ATORVASTATIN 80 MG TAB PO SCH (09:31)
[2016-07-10] MEDS: ASPIRIN 81 MG TAB NGT SCH (09:31)
[2016-07-10] MEDS: FAMOTIDINE 20 MG INJ IV SCH ×2 (09:31→20:27)
[2016-07-10] MEDS: POTASSIUM CHLORIDE 50 ML IVPB PRN ×5 (09:32→18:18)
[2016-07-10] MEDS: CEFEPIME 1GM/50 ML (PMX) 50 ML IVPB SCH ×2 (09:33→20:27)
--- NOTE | 2016-07-10 10:46 | CONS ---
Date/Time of Note Date/Time of Note DATE: 07/10/16 TIME: 10:39 Assessment/Plan Assessment/Plan Chief Complaint/Hosp Course IMPRESSION: 1. Positive troponin, consistent with a non-ST elevation myocardial infarction. -Peaked at 40 and now downtrending significantly. Now post-op s/p diagnostic LHC 07/06 with 3vd 100% RCA/LCX both seen via collateral flow and 90-95% prox LAD 2. Status post cardiac arrest. 3. Cardiomyopathy, with a severely depressed left ventricular ejection fraction of approximately 15% to 20% by echo on this admission. s/p repeat Echo 07/06 limited EF now 25-30% 4. Respiratory failure. Status post intubation. 5. Ventricular fibrillation arrest, witnessed, status post defibrillator x1. 6. Encephalopathy. 7. Leukocytosis. 8. Anemia. 9. Hypotension.-on dobutamine alone now 10.Fevers Recc: -Tele -Dobutamine now off and thus will follow BP/urine output closely -Continue heparin -Continue asa -Continue lasix diuresis and follow volume status closely -Follow for any recurrent bleeding -Continue PO amiodarone -Continue abx's and f/u cx data -Consideration fo cabg versus high risk mutivessel PCI with ventricular support with patient now to undergo cabg garrett early next week depending upon stability , will discuss timing with CT surgery Problems: Consultation Date/Type/Reason Admit Date/Time Jun 28, 2016 at 20:48 Initial Consult Date 06/29/16 Type of Consultation: Cardiology Reason for Consultation Encephalopathy Referring Provider: CHRISTINA JOSEPH Exam/Review of Systems Vital Signs Vitals Vital Signs Date Time Temp Pulse Resp B/P Pulse Ox O2 Delivery O2 Flow Rate FiO2 07/10/16 10:00 83 27 110/70 97 Room Air 07/10/16 08:00 99.1 3.0 07/09/16 10:47 40 Intake and Output 07/09/16 07/09/16 07/10/16 15:00 23:00 07:00 Intake Total 615.5 ml 46.5 ml Output Total 1347 ml 1000 ml 930 ml Balance -731.5 ml -953.5 ml -930 ml Exam Review of Systems: CONSTITUTIONAL: No fevers, chills. PULMONARY: s/p extubation CARDIOVASCULAR: No chest pain/palpitations GASTROINTESTINAL: No nausea/vomiting. GENITOURINARY: No hematuria/dysuria. MUSCULOSKELETAL: No myagias/arthalgias. PSYCHIATRIC: The patient denies depression. NEUROLOGIC: Encephalopathic Constitutional: alert, oriented Psych: confusion Head: normocephalic ENMT: mucosa pink and moist Neck: jvd, supple Respiratory: diminished breath sounds Cardiovascular: regular rate and rhythm Gastrointestinal: non-tender, soft Musculoskeletal: muscle tone Extremities: edema (none) Neurological: other (No focal deficits) Results Result Diagram: 07/10/1682107/10/1622 Results 24 hrs Laboratory Tests Test 07/09/16 10:40 07/09/16 11:40 07/09/16 12:27 07/09/16 18:55 Activated Partial Thromboplast Time 32.0 36.2 H 75.3 *H Potassium Level 4.3 Vancomycin Level Trough 14.2 Prothrombin Time 13.0 13.2 Prothrombin Time Ratio 1.0 1.0 INR International Normalized Ratio 0.98 1.00 Blood Gas Specimen Source Blood arterial Arterial Blood Date Drawn 07/09/2016 1:00:08 PM Arterial Blood pH (Temp corrected) 7.396 Arterial Blood pCO2 (Temp correct) 38.2 Arterial Blood pO2 (Temp corrected) 135.3 H Arterial Blood HCO3 22.9 Arterial Blood Base Excess -1.6 Arterial Blood Oxygen Saturation 98.3 H Christ Test ACCEPTAB Arterial Blood Gas Puncture Site Right Radial Arterial Blood Carboxyhemoglobin 0.3 Arterial Blood Methemoglobin 0.3 Blood Gas A-a O2 Differential 106.0 H Oxyhemoglobin Percent 97.7 Total Hemoglobin 12.6 Blood Gas Temperature 37.0 Blood Gas Actual Respiration Rate 26 Blood Gas Modality VENT - CPAP FiO2 40.0 Blood Gas Tidal Volume 423.0 Blood Gas Low PEEP Setting 5.0 Blood Gas Pressure Support 10 Blood Gas Notified Whom CW Blood Gas Notified Time 07/09/2016 1:10:16 PM Test 07/10/16 02:25 07/10/16 07:00 07/10/16 08:22 Activated Partial Thromboplast Time 64.9 H 93.1 *H Blood Gas Specimen Source Blood arterial Arterial Blood Date Drawn 07/10/2016 8:00:15 AM Arterial Blood pH (Temp corrected) 7.445 Arterial Blood pCO2 (Temp correct) 33.2 L Arterial Blood pO2 (Temp corrected) 123.8 H Arterial Blood HCO3 22.3 Arterial Blood Base Excess -1.1 Arterial Blood Oxygen Saturation 98.1 H Christ Test ACCEPTAB Arterial Blood Gas Puncture Site Right Radial Arterial Blood Carboxyhemoglobin 0.3 Arterial Blood Methemoglobin 0.3 Blood Gas A-a O2 Differential 51.1 H Oxyhemoglobin Percent 97.5 Total Hemoglobin 12.1 Blood Gas Temperature 37.0 Blood Gas Modality NASAL CANNULA FiO2 30.0 Blood Gas Notified Whom CW Blood Gas Notified Time 07/10/2016 8:20:15 AM White Blood Count 17.8 #H Red Blood Count 3.83 L Hemoglobin 11.5 L Hematocrit 34.8 L Mean Corpuscular Volume 90.9 Mean Corpuscular Hemoglobin 30.0 Mean Corpuscular Hemoglobin Concent 33.0 Red Cell Distribution Width 12.7 Platelet Count 433 #H Mean Platelet Volume 8.6 Neutrophils % 86.7 H Lymphocytes % 7.5 L Monocytes % 3.7 Eosinophils % 0.1 Basophils % 0.3 Nucleated Red Blood Cells % 0.0 Neutrophils # 15.5 H Lymphocytes # 1.3 Monocytes # 0.7 Eosinophils # 0.0 Basophils # 0.1 Nucleated Red Blood Cells # 0.0 Sodium Level 144 Potassium Level 3.2 L Chloride Level 104 Carbon Dioxide Level 26 Anion Gap 17 H Blood Urea Nitrogen 22 H Creatinine 0.84 Glucose Level 134 Calcium Level 9.3 Medications Medications Current Medications Famotidine (Pepcid Iv) 20 mg Q12 IV Last administered on 07/10/16 09:31; Admin Dose 20 MG; Start 06/28/16 at 21:00 Meperidine HCl (Demerol) 25 mg Q4H PRN IV shivering post hypothermia pro Last administered on 06/29/16 14:44; Admin Dose 25 MG; Start 06/29/16 at 14:30 Dicyclomine HCl (Bentyl) 20 mg Q6H PRN NGT Hiccups Last administered on 09:54; Admin Dose 20 MG; Start 06/30/16 at 06:30 Miscellaneous Information 1 ea NOTE XX ; Start 06/30/16 at 09:30 Atorvastatin Calcium (Lipitor) 80 mg DAILY PO Last administered on 07/10/16 09 :31; Admin Dose 80 MG; Start 06/30/16 at 09:30 Acetaminophen 650 mg 650 mg Q6 PRN NGT PAIN AND OR ELEVATED TEMP Last administered on 07/05/16 21:05; Admin Dose 650 MG; Start 06/30/16 at 11:00 Dobutamine HCl/ Dextrose 250 ml @ 11.25 mls/ hr TITRATE IV Last administered on 07/08/16 08:13; Admin Dose 4.5 MLS/HR; Start 06/30/16 at 16:30 Lorazepam 2 mg 2 mg Q1HWA PRN IV AGITATION Last administered on 07/08/16 06:49 ; Admin Dose 2 MG; Start 06/30/16 at 17:30 Propofol (Diprivan) 100 ml @ 2.25 mls/hr Q12H IV Last administered on 08:15; Admin Dose 18 MLS/HR; Start 06/30/16 at 17:30 Acetaminophen (Tylenol Supp) 1,000 mg Q6H PRN [place] Fever Last administered on 04:03; Admin Dose 1,000 MG; Start 06/30/16 at 21:30 Amiodarone HCl (Cordarone) 400 mg BID PO Last administered on 07/10/16 09:31; Admin Dose 400 MG; Start 07/01/16 at 11:00 Aspirin 81 mg 81 mg DAILY NGT Last administered on 07/10/16 09:31; Admin Dose 81 MG; Start 07/02/16 at 09:00 Norepinephrine/ Dextrose (Levophed/D5W) 500 ml @ 1.87 mls/hr TITRATE IV ; Start 07/03/16 at 11:30 Furosemide 40 mg 40 mg Q8H IV Last administered on 07/10/16 04:08; Admin Dose 40 MG; Start 07/03/16 at 21:00 Fentanyl 100 ml @ 2.5 mls/hr TITRATE IV Last administered on 07/09/16 01:13; Admin Dose 10 MLS/HR; Start 07/03/16 at 18:00 Midazolam HCl 50 ml @ 1 mls/hr TITRATE IV Last administered on 07/08/16 23:08 ; Admin Dose 5 MLS/HR; Start 07/03/16 at 18:00; Status Future hold Vancomycin HCl (Vancocin) 250 ml @ 125 mls/hr Q8H IVPB Last administered on 04:08; Admin Dose 125 MLS/HR; Start 07/04/16 at 20:00 Acetaminophen (Tylenol Tab) 650 mg Q4H PRN PO NON-CARDIAC PAIN LEVEL (1-3); Start 07/06/16 at 10:30 Morphine Sulfate (morphine) 2 mg Q2H PRN IV FOR NON CARDIAC PAIN (4-10); Start 07/06/16 at 10:30 Al Hydrox/Mg Hydrox/Simethicone (Mag-Al Plus) 30 ml Q4H PRN PO GASTROINTESTINAL UPSET; Start 07/06/16 at 10:30 Ondansetron HCl (Zofran Inj) 4 mg Q4H PRN IV NAUSEA AND/OR VOMITING; Start at 10:30 Potassium Chloride 40 meq 40 meq DAILY GTB Last administered on 07/09/16 08:14 ; Admin Dose 40 MEQ; Start 07/07/16 at 15:00 Cefepime HCl (Maxipime 1gm/50 ml (Pmx)) 50 ml @ 100 mls/hr Q12 IVPB Last administered on 07/10/16 09:33; Admin Dose 100 MLS/HR; Start 07/07/16 at 21:00 Metronidazole (Flagyl) 250 mg Q8 NGT Last administered on 07/10/16 05:10; Admin Dose 250 MG; Start 07/09/16 at 22:00 ELIGIO TYSON Jul 10, 2016 10:46
--- NOTE | 2016-07-10 11:04 | CONS ---
Date/Time of Note Date/Time of Note DATE: 07/10/16 TIME: 11:02 Assessment/Plan Assessment/Plan Additional Assessment/Plan Assessment recommendations; 1. Patient admitted for acute TX status post emergent coronary angiography with relation of severe coronary artery disease not amenable to intervention. 2. Status post respiratory failure. 3. Possibly some element of aspiration pneumonia. 4. Cardia myopathy. Continue current treatment. Patient currently is been assessed for possible CABG surgery next week. Consultation Date/Type/Reason Admit Date/Time Jun 28, 2016 at 20:48 Initial Consult Date 06/29/16 Type of Consultation: Pulmonary/critical care Referring Provider: CHRISTINA JOSEPH 24 HR Interval Summary Free Text/Dictation Patient condition is stable. He was successfully extubated yesterday afternoon. Patient denies any chest pain, but does complain of shortness of breath upon minimal exertion. Denies any fevers chills nausea vomiting. General exam; young male, awake alert currently in no distress. Exam/Review of Systems Vital Signs Vitals Vital Signs Date Time Temp Pulse Resp B/P Pulse Ox O2 Delivery O2 Flow Rate FiO2 07/10/16 10:00 83 27 110/70 97 Room Air 07/10/16 08:00 99.1 3.0 07/09/16 10:47 40 Intake and Output 07/09/16 07/09/16 07/10/16 15:00 23:00 07:00 Intake Total 615.5 ml 46.5 ml 1450 ml Output Total 1347 ml 1000 ml 930 ml Balance -731.5 ml -953.5 ml 520 ml Exam HEENT exam is; supple neck, positive JVD. No lymphadenopathy. Midline trachea. No thyromegaly. Pharynx is clear. Patient has good dentition. Pupils are midsize and reactive to light bilaterally. Chest examination; clear to auscultation. S1-S2 audible, no murmurs. Regular rhythm. Abdomen examination; soft, nondistended, nontender. No organomegaly. Bowel sounds audible. Extremity examination; no peripheral edema. Pulses 1+ bilaterally. [employer] examination; no focal deficit. Results Result Diagram: 07/10/16 0822 07/10/16 0822 Results 24 hrs Laboratory Tests Test 07/09/16 11:40 07/09/16 12:27 07/09/16 18:55 07/10/16 02:25 Prothrombin Time 13.0 13.2 Prothrombin Time Ratio 1.0 1.0 INR International Normalized Ratio 0.98 1.00 Activated Partial Thromboplast Time 36.2 H 75.3 *H 64.9 H Blood Gas Specimen Source Blood arterial Arterial Blood Date Drawn 07/09/2016 1:00:08 PM Arterial Blood pH (Temp corrected) 7.396 Arterial Blood pCO2 (Temp correct) 38.2 Arterial Blood pO2 (Temp corrected) 135.3 H Arterial Blood HCO3 22.9 Arterial Blood Base Excess -1.6 Arterial Blood Oxygen Saturation 98.3 H Christ Test ACCEPTAB Arterial Blood Gas Puncture Site Right Radial Arterial Blood Carboxyhemoglobin 0.3 Arterial Blood Methemoglobin 0.3 Blood Gas A-a O2 Differential 106.0 H Oxyhemoglobin Percent 97.7 Total Hemoglobin 12.6 Blood Gas Temperature 37.0 Blood Gas Actual Respiration Rate 26 Blood Gas Modality VENT - CPAP FiO2 40.0 Blood Gas Tidal Volume 423.0 Blood Gas Low PEEP Setting 5.0 Blood Gas Pressure Support 10 Blood Gas Notified Whom Blood Gas Notified Time 07/09/2016 1:10:16 PM Test 07/10/16 07:00 07/10/16 08:22 Blood Gas Specimen Source Blood arterial Arterial Blood Date Drawn 07/10/2016 8:00:15 AM Arterial Blood pH (Temp corrected) 7.445 Arterial Blood pCO2 (Temp correct) 33.2 L Arterial Blood pO2 (Temp corrected) 123.8 H Arterial Blood HCO3 22.3 Arterial Blood Base Excess -1.1 Arterial Blood Oxygen Saturation 98.1 H Christ Test ACCEPTAB Arterial Blood Gas Puncture Site Right Radial Arterial Blood Carboxyhemoglobin 0.3 Arterial Blood Methemoglobin 0.3 Blood Gas A-a O2 Differential 51.1 H Oxyhemoglobin Percent 97.5 Total Hemoglobin 12.1 Blood Gas Temperature 37.0 Blood Gas Modality NASAL CANNULA FiO2 30.0 Blood Gas Notified Whom Blood Gas Notified Time 07/10/2016 8:20:15 AM White Blood Count 17.8 #H Red Blood Count 3.83 L Hemoglobin 11.5 L Hematocrit 34.8 L Mean Corpuscular Volume 90.9 Mean Corpuscular Hemoglobin 30.0 Mean Corpuscular Hemoglobin Concent 33.0 Red Cell Distribution Width 12.7 Platelet Count 433 #H Mean Platelet Volume 8.6 Neutrophils % 86.7 H Lymphocytes % 7.5 L Monocytes % 3.7 Eosinophils % 0.1 Basophils % 0.3 Nucleated Red Blood Cells % 0.0 Neutrophils # 15.5 H Lymphocytes # 1.3 Monocytes # 0.7 Eosinophils # 0.0 Basophils # 0.1 Nucleated Red Blood Cells # 0.0 Activated Partial Thromboplast Time 93.1 *H Sodium Level 144 Potassium Level 3.2 L Chloride Level 104 Carbon Dioxide Level 26 Anion Gap 17 H Blood Urea Nitrogen 22 H Creatinine 0.84 Glucose Level 134 Calcium Level 9.3 Medications Medications Current Medications Famotidine (Pepcid Iv) 20 mg Q12 IV Last administered on 07/10/16 09:31; Admin Dose 20 MG; Start 06/28/16 at 21:00 Meperidine HCl (Demerol) 25 mg Q4H PRN IV shivering post hypothermia pro Last administered on 06/29/16 14:44; Admin Dose 25 MG; Start 06/29/16 at 14:30 Dicyclomine HCl (Bentyl) 20 mg Q6H PRN NGT Hiccups Last administered on 09:54; Admin Dose 20 MG; Start 06/30/16 at 06:30 Miscellaneous Information 1 ea NOTE XX ; Start 06/30/16 at 09:30 Atorvastatin Calcium (Lipitor) 80 mg DAILY PO Last administered on 07/10/16 09 :31; Admin Dose 80 MG; Start 06/30/16 at 09:30 Acetaminophen 650 mg 650 mg Q6 PRN NGT PAIN AND OR ELEVATED TEMP Last administered on 07/05/16 21:05; Admin Dose 650 MG; Start 06/30/16 at 11:00 Dobutamine HCl/ Dextrose 250 ml @ 11.25 mls/ hr TITRATE IV Last administered on 07/08/16 08:13; Admin Dose 4.5 MLS/HR; Start 06/30/16 at 16:30 Lorazepam 2 mg 2 mg Q1HWA PRN IV AGITATION Last administered on 07/08/16 06:49 ; Admin Dose 2 MG; Start 06/30/16 at 17:30 Propofol (Diprivan) 100 ml @ 2.25 mls/hr Q12H IV Last administered on 08:15; Admin Dose 18 MLS/HR; Start 06/30/16 at 17:30 Acetaminophen (Tylenol Supp) 1,000 mg Q6H PRN [place] Fever Last administered on 04:03; Admin Dose 1,000 MG; Start 06/30/16 at 21:30 Amiodarone HCl (Cordarone) 400 mg BID PO Last administered on 07/10/16 09:31; Admin Dose 400 MG; Start 07/01/16 at 11:00 Aspirin 81 mg 81 mg DAILY NGT Last administered on 07/10/16 09:31; Admin Dose 81 MG; Start 07/02/16 at 09:00 Norepinephrine/ Dextrose (Levophed/D5W) 500 ml @ 1.87 mls/hr TITRATE IV ; Start 07/03/16 at 11:30 Furosemide 40 mg 40 mg Q8H IV Last administered on 07/10/16 04:08; Admin Dose 40 MG; Start 07/03/16 at 21:00 Fentanyl 100 ml @ 2.5 mls/hr TITRATE IV Last administered on 07/09/16 01:13; Admin Dose 10 MLS/HR; Start 07/03/16 at 18:00 Midazolam HCl 50 ml @ 1 mls/hr TITRATE IV Last administered on 07/08/16 23:08 ; Admin Dose 5 MLS/HR; Start 07/03/16 at 18:00; Status Future hold Vancomycin HCl (Vancocin) 250 ml @ 125 mls/hr Q8H IVPB Last administered on 04:08; Admin Dose 125 MLS/HR; Start 07/04/16 at 20:00 Acetaminophen (Tylenol Tab) 650 mg Q4H PRN PO NON-CARDIAC PAIN LEVEL (1-3); Start 07/06/16 at 10:30 Morphine Sulfate (morphine) 2 mg Q2H PRN IV FOR NON CARDIAC PAIN (4-10); Start 07/06/16 at 10:30 Al Hydrox/Mg Hydrox/Simethicone (Mag-Al Plus) 30 ml Q4H PRN PO GASTROINTESTINAL UPSET; Start 07/06/16 at 10:30 Ondansetron HCl (Zofran Inj) 4 mg Q4H PRN IV NAUSEA AND/OR VOMITING; Start at 10:30 Potassium Chloride 40 meq 40 meq DAILY GTB Last administered on 07/09/16 08:14 ; Admin Dose 40 MEQ; Start 07/07/16 at 15:00 Cefepime HCl (Maxipime 1gm/50 ml (Pmx)) 50 ml @ 100 mls/hr Q12 IVPB Last administered on 07/10/16 09:33; Admin Dose 100 MLS/HR; Start 07/07/16 at 21:00 Metronidazole (Flagyl) 250 mg Q8 NGT Last administered on 07/10/16 05:10; Admin Dose 250 MG; Start 07/09/16 at 22:00 SARITHA RAYMUNDO Jul 10, 2016 11:04
[2016-07-10] MEDS: POTASSIUM CHLORIDE 20 MEQ POWDER FOR ORAL SOLN GTB SCH (11:05)
--- NOTE | 2016-07-10 11:07 | RADRPT ---
PROCEDURE: XR Chest. CLINICAL INDICATION: PNEUMONIA TECHNIQUE: Single frontal view of the chest. COMPARISON: July 09, 2016 FINDINGS: Endotracheal tube and enteric tube have been removed. Right IJ central venous catheters unchanged i n position. There is persistent generalized left lung haziness as compared to the right, suggesting the presence of underlying airspace disease in the left lung. No pleural effusion or pneumothorax. The right l david is clear. IMPRESSION: Persistent generalized left lung haziness as compared to the right suggesting the presence of underl roney airspace disease (pneumonia). The pleural effusion or pneumothorax. Interval removal of endotracheal and enteric tube. Physician Pablo Date Time Electronically viewed and signed by Ovi Rhoades Physician on 07/10/2016 11:07 ML/
[2016-07-10] MEDS ORDERED: POTASSIUM CHLORIDE 250 ML IVPB ONE (11:30)
[2016-07-10] MEDS ORDERED: GUAIFENESIN 20 MG/ML 5ML CUP PO PRN (11:30)
[2016-07-10] MEDS ORDERED: CEPASTAT LOZENGE MT PRN (11:30)
--- NOTE | 2016-07-10 11:30 | PN ---
Date/Time of Note Date/Time of Note DATE: 07/10/16 TIME: 11:26 Assessment/Plan VTE Prophylaxis VTE Prophylaxis Intervention: heparin Lines/Catheters IV Catheter Type (from Nrs): Central Line Central line still needed: Yes Urinary Cath still in place: Yes Reason Cath still needed: urinary retention Assessment/Plan Chief Complaint/Hosp Course Assessment/Plan: 36 M with: 1. Status post ventricular fibrillation cardiac arrest with ROSC - s/p hypothermia protocol. Now s/p LHC with multivessel ds found. - possible coronary artery bypass graft surgery when medically cleared, per CTS - Continue ventilator support and pressor support and wean off as tolerated. 2. NSTEMI - F/u cardiology plan re: NSTEMI - again see above had LHC. -continue heparin IV, f/u CV and CTS rec's - low dose dobutamine as well 3. Vent dependent respiratory failure secondary to cardiac arrest - now extubated - f/u pulm rec's, monitor 4. Shock likely septic with a cardiogenic component - appears resolved now ( off dobutamine), on abx / f/u final cultures. - continue abx, pressor - wean as tolerated 5. Severe systolic dysfunction with EF of 15 to 20% - Continue current medical management including Pepcid / Heparin / aspirin / antibiotics / diuresis 6. Pulmonary edema - monitor 7. Bilateral pneumonia, possibly from aspiration - abx 8. Chronic Tobacco user - educate about cessation when awake 10. Acute kidney injury, resolved. 11. Hyperglycemia : A1C 5.7: resolved - ISS * Replace electrolytes and closely monitor * Further workup and management per clinical course. Critical Care time = 40 mins Problems: Subjective 24 Hr Interval Summary Free Text/Dictation Pt extubated yesterday, lethargic, but alert. On heparin IV. Exam/Review of Systems Vital Signs Vitals Vital Signs Date Time Temp Pulse Resp B/P Pulse Ox O2 Delivery O2 Flow Rate FiO2 07/10/16 10:00 83 27 110/70 97 Room Air 07/10/16 08:00 99.1 3.0 07/09/16 10:47 40 Intake and Output 07/09/16 07/09/16 07/10/16 15:00 23:00 07:00 Intake Total 615.5 ml 46.5 ml 1450 ml Output Total 1347 ml 1000 ml 930 ml Balance -731.5 ml -953.5 ml 520 ml Exam Constitutional: alert, other (comfortable on vent) Head: normocephalic Eyes: PERRL ENMT: intubated Respiratory: clear to auscultation Cardiovascular: regular rate and rhythm, No murmurs/extra sounds Gastrointestinal: bowel sounds, non-tender, other (tolerating PEG feeds), soft Genitourinary - Male: other (clarke ) Extremities: No edema Neurological: nl mental status Skin: No rash or lesions Results Result Diagram: 07/10/1682107/10/16 0822 Results 24 hrs Laboratory Tests Test 07/09/16 11:40 07/09/16 12:27 07/09/16 18:55 07/10/16 02:25 Prothrombin Time 13.0 13.2 Prothrombin Time Ratio 1.0 1.0 INR International Normalized Ratio 0.98 1.00 Activated Partial Thromboplast Time 36.2 H 75.3 *H 64.9 H Blood Gas Specimen Source Blood arterial Arterial Blood Date Drawn 07/09/2016 1:00:08 PM Arterial Blood pH (Temp corrected) 7.396 Arterial Blood pCO2 (Temp correct) 38.2 Arterial Blood pO2 (Temp corrected) 135.3 H Arterial Blood HCO3 22.9 Arterial Blood Base Excess -1.6 Arterial Blood Oxygen Saturation 98.3 H Christ Test ACCEPTAB Arterial Blood Gas Puncture Site Right Radial Arterial Blood Carboxyhemoglobin 0.3 Arterial Blood Methemoglobin 0.3 Blood Gas A-a O2 Differential 106.0 H Oxyhemoglobin Percent 97.7 Total Hemoglobin 12.6 Blood Gas Temperature 37.0 Blood Gas Actual Respiration Rate 26 Blood Gas Modality VENT - CPAP FiO2 40.0 Blood Gas Tidal Volume 423.0 Blood Gas Low PEEP Setting 5.0 Blood Gas Pressure Support 10 Blood Gas Notified Whom CW Blood Gas Notified Time 07/09/2016 1:10:16 PM Test 07/10/16 07:00 07/10/16 08:22 Blood Gas Specimen Source Blood arterial Arterial Blood Date Drawn 07/10/2016 8:00:15 AM Arterial Blood pH (Temp corrected) 7.445 Arterial Blood pCO2 (Temp correct) 33.2 L Arterial Blood pO2 (Temp corrected) 123.8 H Arterial Blood HCO3 22.3 Arterial Blood Base Excess -1.1 Arterial Blood Oxygen Saturation 98.1 H Christ Test ACCEPTAB Arterial Blood Gas Puncture Site Right Radial Arterial Blood Carboxyhemoglobin 0.3 Arterial Blood Methemoglobin 0.3 Blood Gas A-a O2 Differential 51.1 H Oxyhemoglobin Percent 97.5 Total Hemoglobin 12.1 Blood Gas Temperature 37.0 Blood Gas Modality NASAL CANNULA FiO2 30.0 Blood Gas Notified Whom CW Blood Gas Notified Time 07/10/2016 8:20:15 AM White Blood Count 17.8 #H Red Blood Count 3.83 L Hemoglobin 11.5 L Hematocrit 34.8 L Mean Corpuscular Volume 90.9 Mean Corpuscular Hemoglobin 30.0 Mean Corpuscular Hemoglobin Concent 33.0 Red Cell Distribution Width 12.7 Platelet Count 433 #H Mean Platelet Volume 8.6 Neutrophils % 86.7 H Lymphocytes % 7.5 L Monocytes % 3.7 Eosinophils % 0.1 Basophils % 0.3 Nucleated Red Blood Cells % 0.0 Neutrophils # 15.5 H Lymphocytes # 1.3 Monocytes # 0.7 Eosinophils # 0.0 Basophils # 0.1 Nucleated Red Blood Cells # 0.0 Activated Partial Thromboplast Time 93.1 *H Sodium Level 144 Potassium Level 3.2 L Chloride Level 104 Carbon Dioxide Level 26 Anion Gap 17 H Blood Urea Nitrogen 22 H Creatinine 0.84 Glucose Level 134 Calcium Level 9.3 Medications Medications Current Medications Famotidine (Pepcid Iv) 20 mg Q12 IV Last administered on 07/10/16 09:31; Admin Dose 20 MG; Start 06/28/16 at 21:00 Meperidine HCl (Demerol) 25 mg Q4H PRN IV shivering post hypothermia pro Last administered on 06/29/16 14:44; Admin Dose 25 MG; Start 06/29/16 at 14:30 Dicyclomine HCl (Bentyl) 20 mg Q6H PRN NGT Hiccups Last administered on 09:54; Admin Dose 20 MG; Start 06/30/16 at 06:30 Miscellaneous Information 1 ea NOTE XX ; Start 06/30/16 at 09:30 Atorvastatin Calcium (Lipitor) 80 mg DAILY PO Last administered on 07/10/16 09 :31; Admin Dose 80 MG; Start 06/30/16 at 09:30 Acetaminophen 650 mg 650 mg Q6 PRN NGT PAIN AND OR ELEVATED TEMP Last administered on 07/05/16 21:05; Admin Dose 650 MG; Start 06/30/16 at 11:00 Dobutamine HCl/ Dextrose 250 ml @ 11.25 mls/ hr TITRATE IV Last administered on 07/08/16 08:13; Admin Dose 4.5 MLS/HR; Start 06/30/16 at 16:30 Lorazepam 2 mg 2 mg Q1HWA PRN IV AGITATION Last administered on 07/08/16 06:49 ; Admin Dose 2 MG; Start 06/30/16 at 17:30 Propofol (Diprivan) 100 ml @ 2.25 mls/hr Q12H IV Last administered on 08:15; Admin Dose 18 MLS/HR; Start 06/30/16 at 17:30 Acetaminophen (Tylenol Supp) 1,000 mg Q6H PRN PA Fever Last administered on 04:03; Admin Dose 1,000 MG; Start 06/30/16 at 21:30 Amiodarone HCl (Cordarone) 400 mg BID PO Last administered on 07/10/16 09:31; Admin Dose 400 MG; Start 07/01/16 at 11:00 Aspirin 81 mg 81 mg DAILY NGT Last administered on 07/10/16 09:31; Admin Dose 81 MG; Start 07/02/16 at 09:00 Norepinephrine/ Dextrose (Levophed/D5W) 500 ml @ 1.87 mls/hr TITRATE IV ; Start 07/03/16 at 11:30 Furosemide 40 mg 40 mg Q8H IV Last administered on 07/10/16 04:08; Admin Dose 40 MG; Start 07/03/16 at 21:00 Fentanyl 100 ml @ 2.5 mls/hr TITRATE IV Last administered on 07/09/16 01:13; Admin Dose 10 MLS/HR; Start 07/03/16 at 18:00 Midazolam HCl 50 ml @ 1 mls/hr TITRATE IV Last administered on 07/08/16 23:08 ; Admin Dose 5 MLS/HR; Start 07/03/16 at 18:00; Status Future hold Vancomycin HCl (Vancocin) 250 ml @ 125 mls/hr Q8H IVPB Last administered on 04:08; Admin Dose 125 MLS/HR; Start 07/04/16 at 20:00 Acetaminophen (Tylenol Tab) 650 mg Q4H PRN PO NON-CARDIAC PAIN LEVEL (1-3); Start 07/06/16 at 10:30 Morphine Sulfate (morphine) 2 mg Q2H PRN IV FOR NON CARDIAC PAIN (4-10); Start 07/06/16 at 10:30 Al Hydrox/Mg Hydrox/Simethicone (Mag-Al Plus) 30 ml Q4H PRN PO GASTROINTESTINAL UPSET; Start 07/06/16 at 10:30 Ondansetron HCl (Zofran Inj) 4 mg Q4H PRN IV NAUSEA AND/OR VOMITING; Start at 10:30 Potassium Chloride 40 meq 40 meq DAILY GTB Last administered on 07/10/16 11:05 ; Admin Dose 40 MEQ; Start 07/07/16 at 15:00 Cefepime HCl (Maxipime 1gm/50 ml (Pmx)) 50 ml @ 100 mls/hr Q12 IVPB Last administered on 07/10/16 09:33; Admin Dose 100 MLS/HR; Start 07/07/16 at 21:00 Metronidazole 250 mg 250 mg Q8 NGT Last administered on 07/10/16 05:10; Admin Dose 250 MG; Start 07/09/16 at 22:00 Potassium Chloride (KCl 40 MEQ/250 ML NS) 250 ml @ 62.5 mls/hr ONCE ONCE IVPB ; Start 07/10/16 at 11:30; Stop 07/10/16 at 15:29; Status BLACK GARCIA Jul 10, 2016 11:30
--- NOTE | 2016-07-10 12:15 | CONS ---
Date/Time of Note Date/Time of Note DATE: 07/10/16 TIME: 11:57 Assessment/Plan Assessment/Plan Chief Complaint/Hosp Course ID PROGRESS NOTE TOTAL ABX DAY #12 => Vanco IV #11, Cefepime #4, Flagyl #2 Merrem #5-> DC 07/07 Zosyn->DC'd 07/02 POD # C 07/06=>(+)3V-CAD: 100% ASSOC[employer]ATE [employer] RCA/LCX w/collaterals; 90-95% prox LAD => PLAN CABG EXTUBATED 07/09 24H INTERVAL SUMMARY * Respiratory effort stable post extubation, WBC elevated post extubation = expected, CXR w/residual PNA * Confused, becomes tearful when I speak to him, I held his hand, encouraged him -- told him he is doing very well post CPA in the field, prognosis is very good, ID team has you on ABX for PNA, you are recovering and when you are better , the plan is for bypass. Patient has good eye contact, nods as if he agrees, tears continue, he appears to be is acute stage of encephalopathic post traumatic stress. Per nurse, he told her that "I was poisoned" -- obviously he is still processing the traumatic event. * CXR 07/10/16: Persistent generalized left lung haziness as compared to the right suggesting the presence of underlying airspace disease (pneumonia). * CXR 07/08/16 Patchy left greater than right air space disease is unchanged in distribution and extent. No pleural effusions are identified. * Sputum cx repeated 07/09 prior to extubation (+)Yeast = oral candidiasis PHYSICAL EXAMINATION: GENERAL: 36 yo M, awake, alert, responsive, confused, tearful HEENT: Unremarkable NECK: Supple, trach-> midline CHEST: Equal chest rise bilaterally, scattered rhonchi HEART: Pulse RRR ABDOMEN: Soft, BX (+) EXTREMITIES: Warm, (+)Tattoos legs SKIN: Warm, dry ID ASSESSMENT: 36 yo Shaun Ferreira found down in field 06/28/16 witnessed arrest->CPR started by witnesses in field immediately 1. Status post ventricular fibrillation cardiac arrest with ROSC.=> s/p hypothermia protocol * Awake, alert, w/encephalopathy, confused, tearful today -> Post Traumatic Stress reporting to RN "I was poisoned" 2. NSTEMI-> CAD * POD #LHC 07/06=>(+)3V-CAD: 100% RCA/LCX both seen via collateral flow and 90-95 % prox LAD 3. Acute pulmonary edema w/severe systolic dysfunction with EF of 15 to 20% . 4. Shock likely septic with a cardiogenic component : 5. Sepsis vs SIRS w/Fevers 102.+, leukocytosis => ASP HCAP * BCx & Urine Cx on admission (-) * Repeat Blood, urine, respiratory cx pending 6. s/p Acute vent dependent respiratory failure secondary to cardiac arrest.Pulmonary edema=>EXTUBATED 07/09 7. Bilateral pneumonia, possibly from aspiration. * CXR 07/10/16: Persistent generalized left lung haziness as compared to the right suggesting the presence of underlying airspace disease (pneumonia). 8. Acute kidney injury, resolved. 9. Rhabdomyolysis: improving 10. Chronic Tobacco user 11. Hyperglycemia : A1C 5.7: resolved (- )MRSA Nares INVASIVES: * FC, R-IJ TLC ABX ALLERGIES: KNDA CURRENT ABX: #12 => Vanco IV #11, Cefepime #4, Flagyl #2 Merrem #5-> DC 07/07 ID RECOMMENDATIONS: 1. Continue ABX during the post extubation period = pending CABG w/plan to treat the PNA prior to CABG 2. Patient given positive encouragement that he is doing well post CPA, prognosis is good, verbal encouragement and hand holding appears to reassure him , he nods his head and the tears stop when I spend time giving him positive verbal encouragement that his medical status is stable and he is improving. . . . . . Problems: Consultation Date/Type/Reason Admit Date/Time Jun 28, 2016 at 20:48 Initial Consult Date 06/29/16 Type of Consultation: ID Referring Provider: CHRISTINA JOSEPH Exam/Review of Systems Vital Signs Vitals Vital Signs Date Time Temp Pulse Resp B/P Pulse Ox O2 Delivery O2 Flow Rate FiO2 07/10/16 10:00 83 27 110/70 97 Room Air 07/10/16 08:00 99.1 3.0 07/09/16 10:47 40 Intake and Output 07/09/16 07/09/16 07/10/16 15:00 23:00 07:00 Intake Total 615.5 ml 46.5 ml 1450 ml Output Total 1347 ml 1000 ml 930 ml Balance -731.5 ml -953.5 ml 520 ml Results Result Diagram: 07/10/16 0822 07/10/16 0822 Results 24 hrs Laboratory Tests Test 07/09/16 12:27 07/09/16 18:55 07/10/16 02:25 07/10/16 07:00 Blood Gas Specimen Source Blood arterial Blood arterial Arterial Blood Date Drawn 07/09/2016 1:00:08 PM 07/10/2016 8:00:15 AM Arterial Blood pH (Temp corrected) 7.396 7.445 Arterial Blood pCO2 (Temp correct) 38.2 33.2 L Arterial Blood pO2 (Temp corrected) 135.3 H 123.8 H Arterial Blood HCO3 22.9 22.3 Arterial Blood Base Excess -1.6 -1.1 Arterial Blood Oxygen Saturation 98.3 H 98.1 H Christ Test ACCEPTAB ACCEPTAB Arterial Blood Gas Puncture Site Right Radial Right Radial Arterial Blood Carboxyhemoglobin 0.3 0.3 Arterial Blood Methemoglobin 0.3 0.3 Blood Gas A-a O2 Differential 106.0 H 51.1 H Oxyhemoglobin Percent 97.7 97.5 Total Hemoglobin 12.6 12.1 Blood Gas Temperature 37.0 37.0 Blood Gas Actual Respiration Rate 26 Blood Gas Modality VENT - CPAP NASAL CANNULA FiO2 40.0 30.0 Blood Gas Tidal Volume 423.0 Blood Gas Low PEEP Setting 5.0 Blood Gas Pressure Support 10 Blood Gas Notified Whom CW CW Blood Gas Notified Time 07/09/2016 1:10:16 PM 07/10/2016 8:20:15 AM Prothrombin Time 13.2 Prothrombin Time Ratio 1.0 INR International Normalized Ratio 1.00 Activated Partial Thromboplast Time 75.3 *H 64.9 H Test 07/10/16 08:22 White Blood Count 17.8 #H Red Blood Count 3.83 L Hemoglobin 11.5 L Hematocrit 34.8 L Mean Corpuscular Volume 90.9 Mean Corpuscular Hemoglobin 30.0 Mean Corpuscular Hemoglobin Concent 33.0 Red Cell Distribution Width 12.7 Platelet Count 433 #H Mean Platelet Volume 8.6 Neutrophils % 86.7 H Lymphocytes % 7.5 L Monocytes % 3.7 Eosinophils % 0.1 Basophils % 0.3 Nucleated Red Blood Cells % 0.0 Neutrophils # 15.5 H Lymphocytes # 1.3 Monocytes # 0.7 Eosinophils # 0.0 Basophils # 0.1 Nucleated Red Blood Cells # 0.0 Activated Partial Thromboplast Time 93.1 *H Sodium Level 144 Potassium Level 3.2 L Chloride Level 104 Carbon Dioxide Level 26 Anion Gap 17 H Blood Urea Nitrogen 22 H Creatinine 0.84 Glucose Level 134 Calcium Level 9.3 Medications Medications Current Medications Famotidine (Pepcid Iv) 20 mg Q12 IV Last administered on 07/10/16 09:31; Admin Dose 20 MG; Start 06/28/16 at 21:00 Meperidine HCl (Demerol) 25 mg Q4H PRN IV shivering post hypothermia pro Last administered on 06/29/16 14:44; Admin Dose 25 MG; Start 06/29/16 at 14:30 Dicyclomine HCl (Bentyl) 20 mg Q6H PRN NGT Hiccups Last administered on 09:54; Admin Dose 20 MG; Start 06/30/16 at 06:30 Miscellaneous Information 1 ea NOTE XX ; Start 06/30/16 at 09:30 Atorvastatin Calcium (Lipitor) 80 mg DAILY PO Last administered on 07/10/16 09 :31; Admin Dose 80 MG; Start 06/30/16 at 09:30 Acetaminophen 650 mg 650 mg Q6 PRN NGT PAIN AND OR ELEVATED TEMP Last administered on 07/05/16 21:05; Admin Dose 650 MG; Start 06/30/16 at 11:00 Dobutamine HCl/ Dextrose 250 ml @ 11.25 mls/ hr TITRATE IV Last administered on 07/08/16 08:13; Admin Dose 4.5 MLS/HR; Start 06/30/16 at 16:30 Lorazepam 2 mg 2 mg Q1HWA PRN IV AGITATION Last administered on 07/08/16 06:49 ; Admin Dose 2 MG; Start 06/30/16 at 17:30 Propofol (Diprivan) 100 ml @ 2.25 mls/hr Q12H IV Last administered on 08:15; Admin Dose 18 MLS/HR; Start 06/30/16 at 17:30 Acetaminophen (Tylenol Supp) 1,000 mg Q6H PRN [place] Fever Last administered on 04:03; Admin Dose 1,000 MG; Start 06/30/16 at 21:30 Amiodarone HCl (Cordarone) 400 mg BID PO Last administered on 07/10/16 09:31; Admin Dose 400 MG; Start 07/01/16 at 11:00 Aspirin 81 mg 81 mg DAILY NGT Last administered on 07/10/16 09:31; Admin Dose 81 MG; Start 07/02/16 at 09:00 Norepinephrine/ Dextrose (Levophed/D5W) 500 ml @ 1.87 mls/hr TITRATE IV ; Start 07/03/16 at 11:30 Furosemide 40 mg 40 mg Q8H IV Last administered on 07/10/16 04:08; Admin Dose 40 MG; Start 07/03/16 at 21:00 Fentanyl 100 ml @ 2.5 mls/hr TITRATE IV Last administered on 07/09/16 01:13; Admin Dose 10 MLS/HR; Start 07/03/16 at 18:00 Midazolam HCl 50 ml @ 1 mls/hr TITRATE IV Last administered on 07/08/16 23:08 ; Admin Dose 5 MLS/HR; Start 07/03/16 at 18:00; Status Future hold Vancomycin HCl (Vancocin) 250 ml @ 125 mls/hr Q8H IVPB Last administered on 04:08; Admin Dose 125 MLS/HR; Start 07/04/16 at 20:00 Acetaminophen (Tylenol Tab) 650 mg Q4H PRN PO NON-CARDIAC PAIN LEVEL (1-3); Start 07/06/16 at 10:30 Morphine Sulfate (morphine) 2 mg Q2H PRN IV FOR NON CARDIAC PAIN (4-10); Start 07/06/16 at 10:30 Al Hydrox/Mg Hydrox/Simethicone (Mag-Al Plus) 30 ml Q4H PRN PO GASTROINTESTINAL UPSET; Start 07/06/16 at 10:30 Ondansetron HCl (Zofran Inj) 4 mg Q4H PRN IV NAUSEA AND/OR VOMITING; Start at 10:30 Potassium Chloride 40 meq 40 meq DAILY GTB Last administered on 07/10/16 11:05 ; Admin Dose 40 MEQ; Start 07/07/16 at 15:00 Cefepime HCl (Maxipime 1gm/50 ml (Pmx)) 50 ml @ 100 mls/hr Q12 IVPB Last administered on 07/10/16 09:33; Admin Dose 100 MLS/HR; Start 07/07/16 at 21:00 Metronidazole 250 mg 250 mg Q8 NGT Last administered on 07/10/16 05:10; Admin Dose 250 MG; Start 07/09/16 at 22:00 Potassium Chloride (KCl 40 MEQ/250 ML NS) 250 ml @ 62.5 mls/hr ONCE ONCE IVPB ; Start 07/10/16 at 11:30; Stop 07/10/16 at 15:29 Guaifenesin (Robitussin Liquid Cup) 200 mg Q4H PRN PO COUGH; Start 07/10/16 at 11:30 Phenol (Cepastat Lozenge) 1 lozenge Q1H PRN MT COUGH; Start 07/10/16 at 11:30 STONE NUGENT NP Jul 10, 2016 12:07
--- NOTE | 2016-07-10 14:18 | PN ---
Date/Time of Note Date/Time of Note DATE: 07/10/16 TIME: 14:17 Assessment/Plan VTE Prophylaxis VTE Prophylaxis Intervention: other Lines/Catheters IV C[facility]ter Type (from [facility] Urinary Cath still in place: Yes Assessment/Plan Chief Complaint/Hosp Course IMPRESSION: 1. Coronary artery disease. 2. Status post cardiac arrest. 3. Pulmonary edema, respiratory failure. 4. Aspiration pneumonia. 5. Resolving sepsis. RECOMMENDATIONS: The patient is not a candidate to undergo coronary artery bypass grafting at the present time. Would continue medical management. Abx. Will consider coronary artery bypass grafting when medically cleared. Possibly next week will check Echo Problems: Subjective 24 Hr Interval Summary Gastrointestinal: no complaints Genitourinary: no complaints Musculoskeletal: no complaints Skin: no complaints Neurologic: no complaints Exam/Review of Systems Vital Signs Vitals Vital Signs Date Time Temp Pulse Resp B/P Pulse Ox O2 Delivery O2 Flow Rate FiO2 07/10/16 12:00 87 07/10/16 10:00 27 110/70 97 Room Air 07/10/16 08:00 99.1 3.0 07/09/16 10:47 40 Intake and Output 07/09/16 07/09/16 07/10/16 15:00 23:00 07:00 Intake Total 615.5 ml 46.5 ml 1450 ml Output Total 1347 ml 1000 ml 930 ml Balance -731.5 ml -953.5 ml 520 ml Exam ENMT: nl external ears & nose, nl lips & teeth, nl nasal mucosa & septum Neck: non-tender, supple Respiratory: clear to auscultation, normal air movement Cardiovascular: nl pulses, regular rate and rhythm Results Result Diagram: 07/10/1622 07/10/16 0822 Results 24 hrs Laboratory Tests Test 07/09/16 18:55 07/10/16 02:25 07/10/16 07:00 07/10/16 08:22 Prothrombin Time 13.2 Prothrombin Time Ratio 1.0 INR International Normalized Ratio 1.00 Activated Partial Thromboplast Time 75.3 *H 64.9 H 93.1 *H Blood Gas Specimen Source Blood arterial Arterial Blood Date Drawn 07/10/2016 8:00:15 AM Arterial Blood pH (Temp corrected) 7.445 Arterial Blood pCO2 (Temp correct) 33.2 L Arterial Blood pO2 (Temp corrected) 123.8 H Arterial Blood HCO3 22.3 Arterial Blood Base Excess -1.1 Arterial Blood Oxygen Saturation 98.1 H Christ Test ACCEPTAB Arterial Blood Gas Puncture Site Right Radial Arterial Blood Carboxyhemoglobin 0.3 Arterial Blood Methemoglobin 0.3 Blood Gas A-a O2 Differential 51.1 H Oxyhemoglobin Percent 97.5 Total Hemoglobin 12.1 Blood Gas Temperature 37.0 Blood Gas Modality NASAL CANNULA FiO2 30.0 Blood Gas Notified Whom CW Blood Gas Notified Time 07/10/2016 8:20:15 AM White Blood Count 17.8 #H Red Blood Count 3.83 L Hemoglobin 11.5 L Hematocrit 34.8 L Mean Corpuscular Volume 90.9 Mean Corpuscular Hemoglobin 30.0 Mean Corpuscular Hemoglobin Concent 33.0 Red Cell Distribution Width 12.7 Platelet Count 433 #H Mean Platelet Volume 8.6 Neutrophils % 86.7 H Lymphocytes % 7.5 L Monocytes % 3.7 Eosinophils % 0.1 Basophils % 0.3 Nucleated Red Blood Cells % 0.0 Neutrophils # 15.5 H Lymphocytes # 1.3 Monocytes # 0.7 Eosinophils # 0.0 Basophils # 0.1 Nucleated Red Blood Cells # 0.0 Sodium Level 144 Potassium Level 3.2 L Chloride Level 104 Carbon Dioxide Level 26 Anion Gap 17 H Blood Urea Nitrogen 22 H Creatinine 0.84 Glucose Level 134 Calcium Level 9.3 Medications Medications Current Medications Famotidine (Pepcid Iv) 20 mg Q12 IV Last administered on 07/10/16 09:31; Admin Dose 20 MG; Start 06/28/16 at 21:00 Meperidine HCl (Demerol) 25 mg Q4H PRN IV shivering post hypothermia pro Last administered on 06/29/16 14:44; Admin Dose 25 MG; Start 06/29/16 at 14:30 Dicyclomine HCl (Bentyl) 20 mg Q6H PRN NGT Hiccups Last administered on 09:54; Admin Dose 20 MG; Start 06/30/16 at 06:30 Miscellaneous Information 1 ea NOTE XX ; Start 06/30/16 at 09:30 Atorvastatin Calcium (Lipitor) 80 mg DAILY PO Last administered on 07/10/16 09 :31; Admin Dose 80 MG; Start 06/30/16 at 09:30 Acetaminophen 650 mg 650 mg Q6 PRN NGT PAIN AND OR ELEVATED TEMP Last administered on 07/05/16 21:05; Admin Dose 650 MG; Start 06/30/16 at 11:00 Dobutamine HCl/ Dextrose 250 ml @ 11.25 mls/ hr TITRATE IV Last administered on 07/08/16 08:13; Admin Dose 4.5 MLS/HR; Start 06/30/16 at 16:30 Lorazepam (Ativan) 2 mg Q1HWA PRN IV AGITATION Last administered on 07/08/16 06:49; Admin Dose 2 MG; Start 06/30/16 at 17:30 Acetaminophen (Tylenol Supp) 1,000 mg Q6H PRN [place] Fever Last administered on 04:03; Admin Dose 1,000 MG; Start 06/30/16 at 21:30 Amiodarone HCl (Cordarone) 400 mg BID PO Last administered on 07/10/16 09:31; Admin Dose 400 MG; Start 07/01/16 at 11:00 Aspirin 81 mg 81 mg DAILY NGT Last administered on 07/10/16 09:31; Admin Dose 81 MG; Start 07/02/16 at 09:00 Norepinephrine/ Dextrose (Levophed/D5W) 500 ml @ 1.87 mls/hr TITRATE IV ; Start 07/03/16 at 11:30 Furosemide 40 mg 40 mg Q8H IV Last administered on 07/10/16 13:00; Admin Dose 40 MG; Start 07/03/16 at 21:00 Vancomycin HCl (Vancocin) 250 ml @ 125 mls/hr Q8H IVPB Last administered on 13:00; Admin Dose 125 MLS/HR; Start 07/04/16 at 20:00 Acetaminophen (Tylenol Tab) 650 mg Q4H PRN PO NON-CARDIAC PAIN LEVEL (1-3); Start 07/06/16 at 10:30 Morphine Sulfate (morphine) 2 mg Q2H PRN IV FOR NON CARDIAC PAIN (4-10); Start 07/06/16 at 10:30 Al Hydrox/Mg Hydrox/Simethicone (Mag-Al Plus) 30 ml Q4H PRN PO GASTROINTESTINAL UPSET; Start 07/06/16 at 10:30 Ondansetron HCl (Zofran Inj) 4 mg Q4H PRN IV NAUSEA AND/OR VOMITING; Start at 10:30 Potassium Chloride 40 meq 40 meq DAILY GTB Last administered on 07/10/16 11:05 ; Admin Dose 40 MEQ; Start 07/07/16 at 15:00 Cefepime HCl (Maxipime 1gm/50 ml (Pmx)) 50 ml @ 100 mls/hr Q12 IVPB Last administered on 07/10/16 09:33; Admin Dose 100 MLS/HR; Start 07/07/16 at 21:00 Metronidazole (Flagyl) 250 mg Q8 NGT Last administered on 07/10/16 13:46; Admin Dose 250 MG; Start 07/09/16 at 22:00 Guaifenesin (Robitussin Liquid Cup) 200 mg Q4H PRN PO COUGH; Start 07/10/16 at 11:30 Phenol (Cepastat Lozenge) 1 lozenge Q1H PRN MT COUGH; Start 07/10/16 at 11:30 JOHN TRIPP MD Jul 10, 2016 14:18
[2016-07-10 16:18] LABS: INR 1.13; PROTIME 14.5 Sec (12.2-14.2); PT RATIO 1.1
[2016-07-10 16:50] LABS: PARTIAL THROMBOPLASTIN TIME > 180.0 Sec (25.0-35.0)
[2016-07-10] MEDS: morphine 2 MG INJ IV PRN (18:37)
[2016-07-10 19:30] LABS: INR 0.97; PROTIME 12.9 Sec (12.2-14.2)
[2016-07-10 19:31] LABS: PARTIAL THROMBOPLASTIN TIME 32.3 Sec (25.0-35.0)
[2016-07-10] MEDS: HEPARIN 25000 UNITS/250 ML 250 ML IV SCH ×2 (20:09→23:07)
[2016-07-11] VITALS (24 sets, daily range): BP systolic 104–138; BP diastolic 57–93; PULSE 74–102; RESP 14–31
[2016-07-11] MEDS: HEPARIN 1000 UNITS/ML 10 ML INJ IV PRN (03:53)
[2016-07-11] MEDS: HEPARIN 25000 UNITS/250 ML 250 ML IV SCH ×2 (03:54→17:29)
[2016-07-11] MEDS ORDERED: HEPARIN 1000 UNITS/ML 10 ML INJ IV ONE (04:00)
[2016-07-11] MEDS: VANCOMYCIN 1 GM in NS 250 ML IVPB SCH (04:36)
[2016-07-11] MEDS: FUROSEMIDE 40 MG INJ IV SCH ×3 (04:40→20:26)
[2016-07-11] MEDS: morphine 2 MG INJ IV PRN ×2 (04:43→08:36)
[2016-07-11 06:00] LABS: ADD SCAN DIFF NO
[2016-07-11 06:04] LABS: BASOPHIL # 0.1 10^3/ul (0.0-0.1); BASOPHILS % 0.5 % (0.0-2.0); EOSINOPHILS % 0.2 % (0.0-7.0); HEMATOCRIT 33.3 % (42.0-52.0); HEMOGLOBIN 11.1 g/dl (14.0-18.0); MEAN CORPUSCULAR HEMOGLOBIN 30.7 pg (29.0-33.0); MEAN CORPUSCULAR HGB CONC 33.3 g/dl (32.0-37.0); MEAN PLATELET VOLUME 8.9 fl (7.4-10.4); MONOCYTE # 1.2 10^3/ul (0.3-0.9); MONOCYTES % 7.3 % (0.0-11.0); NEUTROPHILS % 78.9 % (39.0-77.0); PLATELET COUNT 513 10^3/UL (140-415); RED BLOOD COUNT 3.62 10^6/ul (4.70-6.10); RED CELL DISTRIBUTION WIDTH 12.7 % (11.5-14.5); WHITE BLOOD COUNT 16.5 10^3/ul (4.8-10.8)
[2016-07-11 06:37] LABS: POTASSIUM 3.4 mmol/L (3.5-5.1)
[2016-07-11 06:40] LABS: CREATININE 0.86 mg/dl (0.61-1.24)
[2016-07-11 06:45] LABS: MAGNESIUM 2.4 mg/dl (1.7-2.5); PHOSPHORUS 3.8 mg/dl (2.5-4.9)
[2016-07-11] MEDS: metroNIDAZOLE 250 MG TAB NGT SCH ×3 (07:01→22:10)
[2016-07-11] MEDS: ATORVASTATIN 80 MG TAB PO SCH (08:33)
[2016-07-11] MEDS: ASPIRIN 81 MG TAB NGT SCH (08:33)
[2016-07-11] MEDS: POTASSIUM CHLORIDE 20 MEQ POWDER FOR ORAL SOLN GTB SCH (08:33)
[2016-07-11] MEDS: CEFEPIME 1GM/50 ML (PMX) 50 ML IVPB SCH ×2 (08:34→20:27)
[2016-07-11] MEDS: FAMOTIDINE 20 MG INJ IV SCH ×2 (08:34→21:42)
[2016-07-11] MEDS: AMIODARONE 200 MG TAB PO SCH ×2 (08:34→20:27)
[2016-07-11] MEDS: POTASSIUM CHLORIDE 50 ML IVPB PRN ×2 (08:38→11:45)
--- NOTE | 2016-07-11 09:42 | PN ---
Date/Time of Note Date/Time of Note DATE: 07/11/16 TIME: 09:27 Assessment/Plan VTE Prophylaxis VTE Prophylaxis Intervention: heparin Lines/Catheters IV Catheter Type (from Nrs): Central Line Central line still needed: Yes Urinary Cath still in place: Yes Reason Cath still needed: other (indicate) Assessment/Plan Assessment/Plan 1. Status post ventricular fibrillation cardiac arrest with ROSC - s/p hypothermia protocol. - s/p LHC with multivessel ds found. - possible coronary artery bypass graft surgery when improved 2. 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 Vent dependent respiratory failure secondary to cardiac arrest - s/p extubation 4. Shock likely septic with a cardiogenic component -resolved 5. Severe systolic dysfunction with EF of 15 to 20% 6. Pulmonary edema - resolved 7. Bilateral pneumonia, possibly from aspiration -improved - resp cultures 07/09: amadou 8. Chronic Tobacco user 10. Acute kidney injury, resolved. 11. Hyperglycemia : A1C 5.7: resolved - ISS 12. Diarrhea - Cdiff neg 13. Hypokalemia: multifactorial - lasix + diarrhea PLAN: * Consider d/c rectal tube to improve comfort * Continue supportive care abx / lasix / amiodarone / heparin gtt/ aspirin / statin * ?antifungal, will defer to ID * Replace electrolytes and closely monitor * With ongoing diarrhea, leucocytosis and positive sputum cultures, may need to defer CABG till more stable * Further workup and management per clinical course. Critical Care time = 40 mins Subjective 24 Hr Interval Summary Free Text/Dictation Patient seen and examined. c/o abd pain and soreness wants rectal tube removed but still having diarrhea Very anxious Exam/Review of Systems Vital Signs Vitals Vital Signs Date Time Temp Pulse Resp B/P Pulse Ox O2 Delivery O2 Flow Rate FiO2 07/11/16 08:00 88 07/11/16 07:00 21 126/85 98 Nasal Cannula 2.0 07/11/16 06:00 98.5 07/09/16 10:47 40 Intake and Output 07/10/16 07/10/16 07/11/16 14:59 22:59 06:59 Intake Total 973.0 ml 382 ml 1284 ml Output Total 1390 ml 1270 ml 1500 ml Balance -417.0 ml -888 ml -216 ml Exam Constitutional: alert, distress (mild), oriented Psych: anxiety Head: atraumatic, normocephalic Eyes: PERRL ENMT: No mucosa pink and moist (dry) Neck: supple Respiratory: clear to auscultation, diminished breath sounds, No crackles/rales, No wheezing Cardiovascular: regular rate and rhythm, No murmurs/extra sounds Gastrointestinal: bowel sounds, non-tender, other (rectal tube), soft Extremities: edema Neurological: lethargic, No confused, No focal weakness Results Result Diagram: 07/11/1643907/11/16439 Results 24 hrs Laboratory Tests Test 07/10/16 15:55 07/10/16 19:00 07/11/16 02:13 07/11/16 04:40 Prothrombin Time 14.5 H 12.9 Prothrombin Time Ratio 1.1 1.0 INR International Normalized Ratio 1.13 0.97 Activated Partial Thromboplast Time > 180.0 *H 32.3 44.6 H Potassium Level 3.6 3.4 L White Blood Count 16.5 H Red Blood Count 3.62 L Hemoglobin 11.1 L Hematocrit 33.3 L Mean Corpuscular Volume 92.0 Mean Corpuscular Hemoglobin 30.7 Mean Corpuscular Hemoglobin Concent 33.3 Red Cell Distribution Width 12.7 Platelet Count 513 H Mean Platelet Volume 8.9 Neutrophils % 78.9 H Lymphocytes % 12.0 L Monocytes % 7.3 Eosinophils % 0.2 Basophils % 0.5 Nucleated Red Blood Cells % 0.0 Neutrophils # 13.0 H Lymphocytes # 2.0 Monocytes # 1.2 H Eosinophils # 0.0 Basophils # 0.1 Nucleated Red Blood Cells # 0.0 Sodium Level 144 Chloride Level 104 Carbon Dioxide Level 25 Anion Gap 18 H Blood Urea Nitrogen 24 H Creatinine 0.86 Glucose Level 119 Calcium Level 9.0 Phosphorus Level 3.8 Magnesium Level 2.4 Medications Medications Current Medications Famotidine (Pepcid Iv) 20 mg Q12 IV Last administered on 07/11/16 08:34; Admin Dose 20 MG; Start 06/28/16 at 21:00 Meperidine HCl (Demerol) 25 mg Q4H PRN IV shivering post hypothermia pro Last administered on 06/29/16 14:44; Admin Dose 25 MG; Start 06/29/16 at 14:30 Dicyclomine HCl (Bentyl) 20 mg Q6H PRN NGT Hiccups Last administered on 09:54; Admin Dose 20 MG; Start 06/30/16 at 06:30 Miscellaneous Information 1 ea NOTE XX ; Start 06/30/16 at 09:30 Atorvastatin Calcium (Lipitor) 80 mg DAILY PO Last administered on 07/11/16 08: 33; Admin Dose 80 MG; Start 06/30/16 at 09:30 Acetaminophen 650 mg 650 mg Q6 PRN NGT PAIN AND OR ELEVATED TEMP Last administered on 07/05/16 21:05; Admin Dose 650 MG; Start 06/30/16 at 11:00 Dobutamine HCl/ Dextrose 250 ml @ 11.25 mls/ hr TITRATE IV Last administered on 07/08/16 08:13; Admin Dose 4.5 MLS/HR; Start 06/30/16 at 16:30 Lorazepam (Ativan) 2 mg Q1HWA PRN IV AGITATION Last administered on 07/08/16 06:49; Admin Dose 2 MG; Start 06/30/16 at 17:30 Acetaminophen (Tylenol Supp) 1,000 mg Q6H PRN [place] Fever Last administered on 04:03; Admin Dose 1,000 MG; Start 06/30/16 at 21:30 Amiodarone HCl (Cordarone) 400 mg BID PO Last administered on 07/11/16 08:34; Admin Dose 400 MG; Start 07/01/16 at 11:00 Aspirin 81 mg 81 mg DAILY NGT Last administered on 07/11/16 08:33; Admin Dose 81 MG; Start 07/02/16 at 09:00 Norepinephrine/ Dextrose (Levophed/D5W) 500 ml @ 1.87 mls/hr TITRATE IV ; Start 07/03/16 at 11:30 Furosemide 40 mg 40 mg Q8H IV Last administered on 07/11/16 04:40; Admin Dose 40 MG; Start 07/03/16 at 21:00 Vancomycin HCl (Vancocin) 250 ml @ 125 mls/hr Q8H IVPB Last administered on 04:36; Admin Dose 125 MLS/HR; Start 07/04/16 at 20:00 Acetaminophen (Tylenol Tab) 650 mg Q4H PRN PO NON-CARDIAC PAIN LEVEL (1-3); Start 07/06/16 at 10:30 Morphine Sulfate (morphine) 2 mg Q2H PRN IV FOR NON CARDIAC PAIN (4-10) Last administered on 07/11/16 08:36; Admin Dose 2 MG; Start 07/06/16 at 10:30 Al Hydrox/Mg Hydrox/Simethicone (Mag-Al Plus) 30 ml Q4H PRN PO GASTROINTESTINAL UPSET; Start 07/06/16 at 10:30 Ondansetron HCl (Zofran Inj) 4 mg Q4H PRN IV NAUSEA AND/OR VOMITING; Start at 10:30 Potassium Chloride 40 meq 40 meq DAILY GTB Last administered on 07/11/16 08:33 ; Admin Dose 40 MEQ; Start 07/07/16 at 15:00 Cefepime HCl (Maxipime 1gm/50 ml (Pmx)) 50 ml @ 100 mls/hr Q12 IVPB Last administered on 07/11/16 08:34; Admin Dose 100 MLS/HR; Start 07/07/16 at 21:00 Metronidazole (Flagyl) 250 mg Q8 NGT Last administered on 07/11/16 07:01; Admin Dose 250 MG; Start 07/09/16 at 22:00 Guaifenesin (Robitussin Liquid Cup) 200 mg Q4H PRN PO COUGH; Start 07/10/16 at 11:30 Phenol (Cepastat Lozenge) 1 lozenge Q1H PRN MT COUGH; Start 07/10/16 at 11:30 Procedures Procedures PROCEDURE: XR Chest. CLINICAL INDICATION: PNEUMONIA TECHNIQUE: Single frontal view of the chest. COMPARISON: July 09, 2016 FINDINGS: Endotracheal tube and enteric tube have been removed. Right IJ central venous catheters unchanged in position. There is persistent generalized left lung haziness as compared to the right, suggesting the presence of underlying airspace disease in the left lung. No pleural effusion or pneumothorax. The right lung is clear. IMPRESSION: Persistent generalized left lung haziness as compared to the right suggesting the presence of underlying airspace disease (pneumonia). The pleural effusion or pneumothorax. Interval removal of endotracheal and enteric tube. Ovi Rhoades, Physician Date Time Electronically viewed and signed by Ovi Rhoades, Physician on 07/10/2016 11 :07 ML/ CC: SARITHA RAYMUNDO BOLATITO M. July 11, 2016 09:38
--- NOTE | 2016-07-11 10:03 | CONS ---
Date/Time of Note Date/Time of Note DATE: 07/11/16 TIME: 10:01 Consult Date/Type/Reason Admit Date/Time Jun 28, 2016 at 20:48 Initial Consult Date 06/29/16 Type of Consultation: Pulmonary ICU Ordering Provider: CHRISTINA JOSEPH Subjective Patient was extubated yesterday remains awake alert and oriented this morning complaining of mild shortness of breath Objective Vital Signs Date Time Temp Pulse Resp B/P Pulse Ox O2 Delivery O2 Flow Rate FiO2 07/11/16 08:00 88 07/11/16 07:00 21 126/85 98 Nasal Cannula 2.0 07/11/16 06:00 98.5 07/09/16 10:47 40 Intake and Output 07/10/16 07/10/16 07/11/16 15:00 23:00 07:00 Intake Total 1022.5 ml 318 ml 1284 ml Output Total 1590 ml 1120 ml 1350 ml Balance -567.5 ml -802 ml -66 ml Exam PHYSICAL EXAMINATION GENERAL: Young gentleman on nasal cannula oxygen VITAL SIGNS: see below. HEENT: Pupils equal, round, and reactive to light. CARDIAC: S1, S2, 2/6 systolic ejection murmur CHEST: Diminished air entry bilaterally. ABDOMEN: Mildly distended. Bowel sounds present no guarding or rebound. EXTREMITIES: No cyanosis, clubbing or edema. NEUROLOGIC: No focal deficits Results/Medications Result Diagram: 07/11/16 0440 07/11/16 0440 Results 24 hrs Laboratory Tests Test 07/10/16 15:55 07/10/16 19:00 07/11/16 02:13 07/11/16 04:40 Prothrombin Time 14.5 H 12.9 Prothrombin Time Ratio 1.1 1.0 INR International Normalized Ratio 1.13 0.97 Activated Partial Thromboplast Time > 180.0 *H 32.3 44.6 H Potassium Level 3.6 3.4 L White Blood Count 16.5 H Red Blood Count 3.62 L Hemoglobin 11.1 L Hematocrit 33.3 L Mean Corpuscular Volume 92.0 Mean Corpuscular Hemoglobin 30.7 Mean Corpuscular Hemoglobin Concent 33.3 Red Cell Distribution Width 12.7 Platelet Count 513 H Mean Platelet Volume 8.9 Neutrophils % 78.9 H Lymphocytes % 12.0 L Monocytes % 7.3 Eosinophils % 0.2 Basophils % 0.5 Nucleated Red Blood Cells % 0.0 Neutrophils # 13.0 H Lymphocytes # 2.0 Monocytes # 1.2 H Eosinophils # 0.0 Basophils # 0.1 Nucleated Red Blood Cells # 0.0 Sodium Level 144 Chloride Level 104 Carbon Dioxide Level 25 Anion Gap 18 H Blood Urea Nitrogen 24 H Creatinine 0.86 Glucose Level 119 Calcium Level 9.0 Phosphorus Level 3.8 Magnesium Level 2.4 Medications Current Medications Famotidine (Pepcid Iv) 20 mg Q12 IV Last administered on 07/11/16 08:34; Admin Dose 20 MG; Start 06/28/16 at 21:00 Meperidine HCl (Demerol) 25 mg Q4H PRN IV shivering post hypothermia pro Last administered on 06/29/16 14:44; Admin Dose 25 MG; Start 06/29/16 at 14:30 Dicyclomine HCl (Bentyl) 20 mg Q6H PRN NGT Hiccups Last administered on 09:54; Admin Dose 20 MG; Start 06/30/16 at 06:30 Miscellaneous Information 1 ea NOTE XX ; Start 06/30/16 at 09:30 Atorvastatin Calcium (Lipitor) 80 mg DAILY PO Last administered on 07/11/16 08: 33; Admin Dose 80 MG; Start 06/30/16 at 09:30 Acetaminophen 650 mg 650 mg Q6 PRN NGT PAIN AND OR ELEVATED TEMP Last administered on 07/05/16 21:05; Admin Dose 650 MG; Start 06/30/16 at 11:00 Dobutamine HCl/ Dextrose 250 ml @ 11.25 mls/ hr TITRATE IV Last administered on 07/08/16 08:13; Admin Dose 4.5 MLS/HR; Start 06/30/16 at 16:30 Acetaminophen (Tylenol Supp) 1,000 mg Q6H PRN [place] Fever Last administered on 04:03; Admin Dose 1,000 MG; Start 06/30/16 at 21:30 Amiodarone HCl (Cordarone) 400 mg BID PO Last administered on 07/11/16 08:34; Admin Dose 400 MG; Start 07/01/16 at 11:00 Aspirin 81 mg 81 mg DAILY NGT Last administered on 07/11/16 08:33; Admin Dose 81 MG; Start 07/02/16 at 09:00 Norepinephrine/ Dextrose (Levophed/D5W) 500 ml @ 1.87 mls/hr TITRATE IV ; Start 07/03/16 at 11:30 Furosemide 40 mg 40 mg Q8H IV Last administered on 07/11/16 04:40; Admin Dose 40 MG; Start 07/03/16 at 21:00 Vancomycin HCl (Vancocin) 250 ml @ 125 mls/hr Q8H IVPB Last administered on 04:36; Admin Dose 125 MLS/HR; Start 07/04/16 at 20:00 Acetaminophen (Tylenol Tab) 650 mg Q4H PRN PO NON-CARDIAC PAIN LEVEL (1-3); Start 07/06/16 at 10:30 Morphine Sulfate (morphine) 2 mg Q2H PRN IV FOR NON CARDIAC PAIN (4-10) Last administered on 07/11/16 08:36; Admin Dose 2 MG; Start 07/06/16 at 10:30 Al Hydrox/Mg Hydrox/Simethicone (Mag-Al Plus) 30 ml Q4H PRN PO GASTROINTESTINAL UPSET; Start 07/06/16 at 10:30 Ondansetron HCl (Zofran Inj) 4 mg Q4H PRN IV NAUSEA AND/OR VOMITING; Start at 10:30 Potassium Chloride 40 meq 40 meq DAILY GTB Last administered on 07/11/16 08:33 ; Admin Dose 40 MEQ; Start 07/07/16 at 15:00 Cefepime HCl (Maxipime 1gm/50 ml (Pmx)) 50 ml @ 100 mls/hr Q12 IVPB Last administered on 07/11/16 08:34; Admin Dose 100 MLS/HR; Start 07/07/16 at 21:00 Metronidazole (Flagyl) 250 mg Q8 NGT Last administered on 07/11/16 07:01; Admin Dose 250 MG; Start 07/09/16 at 22:00 Guaifenesin (Robitussin Liquid Cup) 200 mg Q4H PRN PO COUGH; Start 07/10/16 at 11:30 Phenol (Cepastat Lozenge) 1 lozenge Q1H PRN MT COUGH; Start 07/10/16 at 11:30 Lorazepam (Ativan) 1 mg Q4H PRN IV AGITATION; Start 07/11/16 at 13:00 Assessment/Plan Chief Complaint/Hosp Course Assessment 1. Cardiopulmonary arrest. Ventricular arrhythmia following spontaneous return of circulation. Ejection fraction 15% cardiogenic shock with elevated troponins cardiac catheterization shows multivessel coronary artery disease. Case was discussed with cardiothoracic surgery, will repeat echocardiogram next week if evidence of improving ejection fraction patient may be a candidate for coronary artery bypass graft surgery. 2. Hypoxemic respiratory failure evidence of pulmonary edema on chest x-ray now safely extubated 3. Possible aspiration pneumonia 4. Resolving sepsis 5. Hypokalemia Plan 1. Continue cardiology and cardiothoracic surgery recommendations as above 2. Diuresis with tolerated 3. Supplemental O2 and incentive spirometry 4. Broad-spectrum antibiotics for underlying sepsis 5. DVT and GI prophylaxis Disposition Continue ICU Discussed with nursing staff Critical care time 40 minutes Problems: ELIZABETH STERN MD, [facility] July 11, 2016 10:03
--- NOTE | 2016-07-11 12:35 | CONS ---
Date/Time of Note Date/Time of Note DATE: 07/11/16 TIME: 12:30 Assessment/Plan Assessment/Plan Chief Complaint/Hosp Course IMPRESSION: 1. Positive troponin, consistent with a non-ST elevation myocardial infarction. -Peaked at 40 and now downtrending significantly. Now post-op s/p diagnostic LHC 07/06 with 3vd 100% RCA/LCX both seen via collateral flow and 90-95% prox LAD 2. Status post cardiac arrest. 3. Cardiomyopathy, with a severely depressed left ventricular ejection fraction of approximately 15% to 20% by echo on this admission. s/p repeat Echo 07/06 limited EF now 25-30% 4. Respiratory failure. Status post intubation. 5. Ventricular fibrillation arrest, witnessed, status post defibrillator x1. 6. Encephalopathy. 7. Leukocytosis. 8. Anemia. 9. Hypotension.-on dobutamine alone now 10.Fevers Recc: -Tele -Dobutamine now off and thus will follow BP/urine output closely -Continue heparin -Continue asa -Continue lasix diuresis and follow volume status closely -Follow for any recurrent bleeding -Continue PO amiodarone -Continue abx's and f/u cx data -Consideration fo cabg versus high risk mutivessel PCI with ventricular support with patient to likely undergo CABG soon depending upon stability -Start low dose afterload reduction with ACEI Problems: Consultation Date/Type/Reason Admit Date/Time Jun 28, 2016 at 20:48 Initial Consult Date 06/29/16 Type of Consultation: Cardiology Reason for Consultation Nstemi Referring Provider: CHRISTINA JOSEPH Exam/Review of Systems Vital Signs Vitals Vital Signs Date Time Temp Pulse Resp B/P Pulse Ox O2 Delivery O2 Flow Rate FiO2 07/11/16 08:00 88 07/11/16 07:00 21 126/85 98 Nasal Cannula 2.0 07/11/16 06:00 98.5 07/09/16 10:47 40 Intake and Output 07/10/16 07/10/16 07/11/16 14:59 22:59 06:59 Intake Total 973.0 ml 382 ml 1284 ml Output Total 1390 ml 1270 ml 1500 ml Balance -417.0 ml -888 ml -216 ml Exam Review of Systems: CONSTITUTIONAL: No fevers, chills. PULMONARY: No sob CARDIOVASCULAR: No chest pain/palpitations GASTROINTESTINAL: No nausea/vomiting. GENITOURINARY: No hematuria/dysuria. MUSCULOSKELETAL: No myagias/arthalgias. PSYCHIATRIC: The patient denies depression. NEUROLOGIC: lethargic/slow to respond but appropriate Constitutional: alert Psych: no complaints Head: normocephalic ENMT: mucosa pink and moist Neck: jvd (9 cm water), supple Respiratory: diminished breath sounds (at bases/B) Cardiovascular: regular rate and rhythm Gastrointestinal: non-tender, soft Extremities: edema (none) Neurological: lethargic Results Result Diagram: 07/11/160 07/11/16439 Results 24 hrs Laboratory Tests Test 07/10/16 15:55 07/10/16 19:00 07/11/16 02:13 07/11/16 04:40 Prothrombin Time 14.5 H 12.9 Prothrombin Time Ratio 1.1 1.0 INR International Normalized Ratio 1.13 0.97 Activated Partial Thromboplast Time > 180.0 *H 32.3 44.6 H Potassium Level 3.6 3.4 L White Blood Count 16.5 H Red Blood Count 3.62 L Hemoglobin 11.1 L Hematocrit 33.3 L Mean Corpuscular Volume 92.0 Mean Corpuscular Hemoglobin 30.7 Mean Corpuscular Hemoglobin Concent 33.3 Red Cell Distribution Width 12.7 Platelet Count 513 H Mean Platelet Volume 8.9 Neutrophils % 78.9 H Lymphocytes % 12.0 L Monocytes % 7.3 Eosinophils % 0.2 Basophils % 0.5 Nucleated Red Blood Cells % 0.0 Neutrophils # 13.0 H Lymphocytes # 2.0 Monocytes # 1.2 H Eosinophils # 0.0 Basophils # 0.1 Nucleated Red Blood Cells # 0.0 Sodium Level 144 Chloride Level 104 Carbon Dioxide Level 25 Anion Gap 18 H Blood Urea Nitrogen 24 H Creatinine 0.86 Glucose Level 119 Calcium Level 9.0 Phosphorus Level 3.8 Magnesium Level 2.4 Test 07/11/16 09:40 Activated Partial Thromboplast Time 91.2 *H Medications Medications Current Medications Famotidine (Pepcid Iv) 20 mg Q12 IV Last administered on 07/11/16t 08:34; Admin Dose 20 MG; Start 06/28/16 at 21:00 Meperidine HCl (Demerol) 25 mg Q4H PRN IV shivering post hypothermia pro Last administered on 06/29/16 14:44; Admin Dose 25 MG; Start 06/29/16 at 14:30 Dicyclomine HCl (Bentyl) 20 mg Q6H PRN NGT Hiccups Last administered on 09:54; Admin Dose 20 MG; Start 06/30/16 at 06:30 Miscellaneous Information 1 ea NOTE XX ; Start 06/30/16 at 09:30 Atorvastatin Calcium (Lipitor) 80 mg DAILY PO Last administered on 07/11/16 08: 33; Admin Dose 80 MG; Start 06/30/16 at 09:30 Acetaminophen 650 mg 650 mg Q6 PRN NGT PAIN AND OR ELEVATED TEMP Last administered on 07/05/16 21:05; Admin Dose 650 MG; Start 06/30/16 at 11:00 Dobutamine HCl/ Dextrose 250 ml @ 11.25 mls/ hr TITRATE IV Last administered on 07/08/16 08:13; Admin Dose 4.5 MLS/HR; Start 06/30/16 at 16:30 Acetaminophen (Tylenol Supp) 1,000 mg Q6H PRN MS Fever Last administered on 04:03; Admin Dose 1,000 MG; Start 06/30/16 at 21:30 Amiodarone HCl (Cordarone) 400 mg BID PO Last administered on 07/11/16 08:34; Admin Dose 400 MG; Start 07/01/16 at 11:00 Aspirin 81 mg 81 mg DAILY NGT Last administered on 07/11/16 08:33; Admin Dose 81 MG; Start 07/02/16 at 09:00 Norepinephrine/ Dextrose (Levophed/D5W) 500 ml @ 1.87 mls/hr TITRATE IV ; Start 07/03/16 at 11:30 Furosemide (Lasix) 40 mg Q8H IV Last administered on 07/11/16 12:02; Admin Dose 40 MG; Start 07/03/16 at 21:00 Acetaminophen (Tylenol Tab) 650 mg Q4H PRN PO NON-CARDIAC PAIN LEVEL (1-3); Start 07/06/16 at 10:30 Morphine Sulfate (morphine) 2 mg Q2H PRN IV FOR NON CARDIAC PAIN (4-10) Last administered on 07/11/16 08:36; Admin Dose 2 MG; Start 07/06/16 at 10:30 Al Hydrox/Mg Hydrox/Simethicone (Mag-Al Plus) 30 ml Q4H PRN PO GASTROINTESTINAL UPSET; Start 07/06/16 at 10:30 Ondansetron HCl (Zofran Inj) 4 mg Q4H PRN IV NAUSEA AND/OR VOMITING; Start at 10:30 Potassium Chloride 40 meq 40 meq DAILY GTB Last administered on 07/11/16 08:33 ; Admin Dose 40 MEQ; Start 07/07/16 at 15:00 Cefepime HCl (Maxipime 1gm/50 ml (Pmx)) 50 ml @ 100 mls/hr Q12 IVPB Last administered on 07/11/16 08:34; Admin Dose 100 MLS/HR; Start 07/07/16 at 21:00 Metronidazole (Flagyl) 250 mg Q8 NGT Last administered on 07/11/16 07:01; Admin Dose 250 MG; Start 07/09/16 at 22:00 Guaifenesin (Robitussin Liquid Cup) 200 mg Q4H PRN PO COUGH; Start 07/10/16 at 11:30 Phenol (Cepastat Lozenge) 1 lozenge Q1H PRN MT COUGH; Start 07/10/16 at 11:30 Lorazepam (Ativan) 1 mg Q4H PRN IV AGITATION; Start 07/11/16 at 13:00 ELIGIO TYSON July 11, 2016 12:35
[2016-07-11] MEDS ORDERED: LORAZEPAM 2 MG INJ IV PRN (13:00)
--- NOTE | 2016-07-11 14:07 | PN ---
DATE: 07/11/2016 INFECTIOUS DISEASE PROGRESS NOTE SUBJECTIVE: No acute events. The patient is awake, lying comfortably in bed. No fevers. VITAL SIGNS: Temperature 98.5, pulse 95, respirations 20, blood pressure 126/85, saturation 98% on 2 liters. WBC 16.5, H and H 11.1 and 33, platelets 513, neutrophils 78.9, BUN 24, creatinine 0.86. MICROBIOLOGY: Blood cultures and urine culture since admission negative. Sputum culture grew Katherine da albicans. Stool for C. diff came back negative. ANTIMICROBIALS: The patient is on Flagyl, cefepime day #5 and vancomycin. DIAGNOSTICS: Chest x-ray from yesterday revealed pneumonia. INDWELLINGS: The patient has Cr, right IJ triple-lumen catheter. PHYSICAL EXAMINATION: GENERAL: Well-developed, middle-aged man who is awake, in no distress. HEENT: Head atraumatic, normocephalic. Sclerae anicteric. Buccal mucosa dry. NECK: Supple, trachea midline. CHEST: Rise symmetrical. Breath sounds diminished to bases. HEART: S1, S2. ABDOMEN: Soft, bowel tones present. EXTREMITIES: Without cyanosis. ASSESSMENT: 1. Status post cardiopulmonary arrest, cardiogenic shock with elevated troponins. 2. Pulmonary edema and possible aspiration pneumonia. 3. Non-ST elevation myocardial infarction, status post cardiac catheterization lab. 4. Persistent leukocytosis secondary to above. PLAN: The patient remains stable, status post extubated yesterday. We are going to discontinue van comycin, keep him on cefepime and Flagyl for now. Continue anti-aspiration measures. Follow cardio logy, pulmonary and cardiothoracic surgery recommendations. Dictated By: CAROLINA ISAAC COMPLIANCE LEAD for GEOVANNA MALLOY/NTS Conf#: [id number] DID#: [id number]
--- NOTE | 2016-07-11 16:09 | PN ---
Date/Time of Note Date/Time of Note DATE: 07/11/16 TIME: 16:06 Assessment/Plan Lines/Catheters IV Catheter Type (from Nrsg): Central Line Cr in Place (from Nrsg): Yes Assessment/Plan Chief Complaint/Hosp Course IMPRESSION: 1. Coronary artery disease. 2. Status post cardiac arrest. 3. Pulmonary edema, respiratory failure. 4. Aspiration pneumonia. 5. Resolving sepsis. RECOMMENDATIONS: Pt with low EF will discuss high risk CABG vs PCI with the referring Doctors Problems: Subjective 24 Hr Interval Summary Constitutional: improved Pain Control: mild Exam/Review of Systems Vital Signs Vitals Vital Signs Date Time Temp Pulse Resp B/P Pulse Ox O2 Delivery O2 Flow Rate FiO2 07/11/16 15:00 89 16 117/78 96 Room Air 07/11/16 12:00 98.3 07/11/16 07:00 2.0 07/09/16 10:47 40 Intake and Output 07/10/16 07/10/16 07/11/16 15:00 23:00 07:00 Intake Total 1022.5 ml 318 ml 1284 ml Output Total 1590 ml 1120 ml 1400 ml Balance -567.5 ml -802 ml -116 ml Exam Neck: non-tender, supple Respiratory: clear to auscultation, normal air movement Cardiovascular: nl pulses, regular rate and rhythm Gastrointestinal: nl liver, spleen, non-tender, soft Results Result Diagram: 07/11/16 0440 07/11/16439 JOHN TRIPP MD July 11, 2016 16:09
[2016-07-12] VITALS (20 sets, daily range): BP systolic 84–168; BP diastolic 54–150; PULSE 75–113; RESP 18–32
[2016-07-12 03:41] LABS: ADD SCAN DIFF NO
[2016-07-12 03:43] LABS: ABNORMAL IP MESSAGE 1; BASOPHIL # 0.1 10^3/ul (0.0-0.1); BASOPHILS % 0.4 % (0.0-2.0); EOSINOPHILS % 0.2 % (0.0-7.0); LYMPHOCYTES # 2.7 10^3/ul (0.8-2.9); LYMPHOCYTES % 15.9 % (15.0-51.0); MEAN CORPUSCULAR HEMOGLOBIN 30.5 pg (29.0-33.0); MEAN CORPUSCULAR HGB CONC 33.3 g/dl (32.0-37.0); MEAN CORPUSCULAR VOLUME 91.6 fl (82.0-101.0); MEAN PLATELET VOLUME 8.5 fl (7.4-10.4); MONOCYTE # 1.6 10^3/ul (0.3-0.9); MONOCYTES % 9.8 % (0.0-11.0); NEUTROPHIL # 12.2 10^3/ul (1.6-7.5); NEUTROPHILS % 72.9 % (39.0-77.0); PLATELET COUNT 510 10^3/UL (140-415); RED BLOOD COUNT 3.93 10^6/ul (4.70-6.10); RED CELL DISTRIBUTION WIDTH 12.9 % (11.5-14.5); WHITE BLOOD COUNT 16.7 10^3/ul (4.8-10.8)
[2016-07-12 04:05] LABS: POTASSIUM 3.7 mmol/L (3.5-5.1)
[2016-07-12 04:07] LABS: CREATININE 0.95 mg/dl (0.61-1.24)
[2016-07-12 04:08] LABS: CALCIUM 9.6 mg/dl (8.4-10.2)
[2016-07-12 04:58] LABS: ALBUMIN 4.4 g/dl (3.3-4.9)
[2016-07-12 05:01] LABS: BILIRUBIN,INDIRECT 0.6 mg/dl (0-1.1); BILIRUBIN,TOTAL 0.6 mg/dl (0.2-1.3); MAGNESIUM 2.4 mg/dl (1.7-2.5); TOTAL PROTEIN 8.2 g/dl (6.1-8.1)
[2016-07-12] MEDS: metroNIDAZOLE 250 MG TAB NGT SCH (05:19)
[2016-07-12] MEDS: FUROSEMIDE 40 MG INJ IV SCH ×3 (05:19→21:52)
[2016-07-12] MEDS: POTASSIUM CHLORIDE 50 ML IVPB PRN (08:48)
[2016-07-12] MEDS: LISINOPRIL 5 MG TAB PO SCH (09:00)
--- NOTE | 2016-07-12 09:30 | CONS ---
Date/Time of Note Date/Time of Note DATE: 07/12/16 TIME: 09:29 Consult Date/Type/Reason Admit Date/Time Jun 28, 2016 at 20:48 Initial Consult Date 06/29/16 Type of Consultation: pulmonary ICU Ordering Provider: CHRISTINA JOSEPH Subjective Patient stable this morning getting out of bed denies any chest pain or shortness of breath Objective Vital Signs Date Time Temp Pulse Resp B/P Pulse Ox O2 Delivery O2 Flow Rate FiO2 07/12/16 08:00 99.0 80 28 98/70 99 Room Air 07/12/16 01:06 3.0 07/09/16 10:47 40 Intake and Output 07/11/16 07/11/16 07/12/16 15:00 23:00 07:00 Intake Total 466.2 ml 432.0 ml 87.4 ml Output Total 1420 ml 830 ml 950 ml Balance -953.8 ml -398.0 ml -862.6 ml Exam PHYSICAL EXAMINATION GENERAL: Young gentleman on nasal cannula oxygen VITAL SIGNS: see below. HEENT: Pupils equal, round, and reactive to light. CARDIAC: S1, S2, 2/6 systolic ejection murmur CHEST: Diminished air entry bilaterally. ABDOMEN: Mildly distended. Bowel sounds present no guarding or rebound. EXTREMITIES: No cyanosis, clubbing or edema. NEUROLOGIC: No focal deficits Results/Medications Result Diagram: 07/12/16 0335 07/12/16 0335 Results 24 hrs Laboratory Tests Test 07/11/16 09:40 07/11/16 18:20 07/12/16 00:40 07/12/16 03:35 Activated Partial Thromboplast Time 91.2 *H 63.2 H 74.3 *H Potassium Level 3.9 3.7 White Blood Count 16.7 H Red Blood Count 3.93 L Hemoglobin 12.0 L Hematocrit 36.0 L Mean Corpuscular Volume 91.6 Mean Corpuscular Hemoglobin 30.5 Mean Corpuscular Hemoglobin Concent 33.3 Red Cell Distribution Width 12.9 Platelet Count 510 H Mean Platelet Volume 8.5 Neutrophils % 72.9 Lymphocytes % 15.9 Monocytes % 9.8 Eosinophils % 0.2 Basophils % 0.4 Nucleated Red Blood Cells % 0.0 Neutrophils # 12.2 H Lymphocytes # 2.7 Monocytes # 1.6 H Eosinophils # 0.0 Basophils # 0.1 Nucleated Red Blood Cells # 0.0 Sodium Level 144 Chloride Level 103 Carbon Dioxide Level 28 Anion Gap 17 H Blood Urea Nitrogen 27 H Creatinine 0.95 Glucose Level 123 Calcium Level 9.6 Magnesium Level 2.4 Total Bilirubin 0.6 Direct Bilirubin 0.00 Indirect Bilirubin 0.6 Aspartate Amino Transf (AST/SGOT) 98 H Alanine Aminotransferase (ALT/SGPT) 222 H Alkaline Phosphatase 157 H Total Protein 8.2 H Albumin 4.4 Medications Current Medications Famotidine (Pepcid Iv) 20 mg Q12 IV Last administered on 07/11/16 21:42; Admin Dose 20 MG; Start 06/28/16 at 21:00 Meperidine HCl (Demerol) 25 mg Q4H PRN IV shivering post hypothermia pro Last administered on 06/29/16 14:44; Admin Dose 25 MG; Start 06/29/16 at 14:30 Dicyclomine HCl (Bentyl) 20 mg Q6H PRN NGT Hiccups Last administered on 09:54; Admin Dose 20 MG; Start 06/30/16 at 06:30 Miscellaneous Information 1 ea NOTE XX ; Start 06/30/16 at 09:30 Atorvastatin Calcium (Lipitor) 80 mg DAILY PO Last administered on 07/11/16 08: 33; Admin Dose 80 MG; Start 06/30/16 at 09:30 Acetaminophen 650 mg 650 mg Q6 PRN NGT PAIN AND OR ELEVATED TEMP Last administered on 07/05/16 21:05; Admin Dose 650 MG; Start 06/30/16 at 11:00 Dobutamine HCl/ Dextrose 250 ml @ 11.25 mls/ hr TITRATE IV Last administered on 07/08/16 08:13; Admin Dose 4.5 MLS/HR; Start 06/30/16 at 16:30 Acetaminophen (Tylenol Supp) 1,000 mg Q6H PRN [place] Fever Last administered on 04:03; Admin Dose 1,000 MG; Start 06/30/16 at 21:30 Amiodarone HCl (Cordarone) 400 mg BID PO Last administered on 07/11/16 20:27; Admin Dose 400 MG; Start 07/01/16 at 11:00 Aspirin 81 mg 81 mg DAILY NGT Last administered on 07/11/16 08:33; Admin Dose 81 MG; Start 07/02/16 at 09:00 Norepinephrine/ Dextrose (Levophed/D5W) 500 ml @ 1.87 mls/hr TITRATE IV ; Start 07/03/16 at 11:30 Furosemide (Lasix) 40 mg Q8H IV Last administered on 07/12/16 05:19; Admin Dose 40 MG; Start 07/03/16 at 21:00 Acetaminophen (Tylenol Tab) 650 mg Q4H PRN PO NON-CARDIAC PAIN LEVEL (1-3); Start 07/06/16 at 10:30 Morphine Sulfate (morphine) 2 mg Q2H PRN IV FOR NON CARDIAC PAIN (4-10) Last administered on 07/11/16 08:36; Admin Dose 2 MG; Start 07/06/16 at 10:30 Al Hydrox/Mg Hydrox/Simethicone (Mag-Al Plus) 30 ml Q4H PRN PO GASTROINTESTINAL UPSET; Start 07/06/16 at 10:30 Ondansetron HCl (Zofran Inj) 4 mg Q4H PRN IV NAUSEA AND/OR VOMITING; Start at 10:30 Potassium Chloride 40 meq 40 meq DAILY GTB Last administered on 07/11/16 08:33 ; Admin Dose 40 MEQ; Start 07/07/16 at 15:00 Cefepime HCl (Maxipime 1gm/50 ml (Pmx)) 50 ml @ 100 mls/hr Q12 IVPB Last administered on 07/11/16 20:27; Admin Dose 100 MLS/HR; Start 07/07/16 at 21:00 Metronidazole (Flagyl) 250 mg Q8 NGT Last administered on 07/12/16 05:19; Admin Dose 250 MG; Start 07/09/16 at 22:00 Guaifenesin (Robitussin Liquid Cup) 200 mg Q4H PRN PO COUGH; Start 07/10/16 at 11:30 Phenol (Cepastat Lozenge) 1 lozenge Q1H PRN MT COUGH; Start 07/10/16 at 11:30 Lorazepam (Ativan) 1 mg Q4H PRN IV AGITATION; Start 07/11/16 at 13:00 Lisinopril (Zestril) 2.5 mg DAILY PO ; Start 07/12/16 at 09:00 Assessment/Plan Chief Complaint/Hosp Course Assessment 1. Cardiopulmonary arrest. Ventricular arrhythmia following spontaneous return of circulation. Ejection fraction 15% cardiogenic shock with elevated troponins cardiac catheterization shows multivessel coronary artery disease. Case was discussed with cardiothoracic surgery, patient will likely need intervention with PCI. 2. Hypoxemic respiratory failure evidence of pulmonary edema on chest x-ray now safely extubated 3. Possible aspiration pneumonia 4. Resolving sepsis 5. Hypokalemia Plan 1. Continue cardiology and cardiothoracic surgery recommendations as above 2. Diuresis with tolerated 3. Supplemental O2 and incentive spirometry 4. Broad-spectrum antibiotics for underlying sepsis 5. DVT and GI prophylaxis Disposition Consider transfer to telemetry as patient is currently stable not scheduled for cardiothoracic surgery. Problems: ELIZABETH STERN MD, [facility] July 12, 2016 09:30
[2016-07-12] MEDS: FAMOTIDINE 20 MG INJ IV SCH ×2 (09:41→21:52)
[2016-07-12] MEDS: POTASSIUM CHLORIDE 20 MEQ POWDER FOR ORAL SOLN GTB SCH (09:42)
[2016-07-12] MEDS: ASPIRIN 81 MG TAB NGT SCH (09:43)
[2016-07-12] MEDS: ATORVASTATIN 80 MG TAB PO SCH (09:43)
[2016-07-12] MEDS: AMIODARONE 200 MG TAB PO SCH ×2 (09:43→21:52)
[2016-07-12] MEDS: CEFEPIME 1GM/50 ML (PMX) 50 ML IVPB SCH (10:27)
--- NOTE | 2016-07-12 12:01 | PN ---
DATE: 07/12/2016 INFECTIOUS DISEASE PROGRESS NOTE SUBJECTIVE: No acute changes. The patient is alert, feels better, looks comfortable, no fevers. LABORATORY DATA: WBC 16.7, H and H 12 and 36, platelets 510. No shift, no bands. BUN 27, creatini ne 0.95. ANTIMICROBIALS: The patient is on: 1. Flagyl. 2. Cefepime. 3. Status post vancomycin. INDWELLINGS: Right IJ triple-lumen catheter. PHYSICAL EXAMINATION: GENERAL: This is a well-nourished, well-developed, middle-aged man who is alert, in no distress. HEENT: Head atraumatic, normocephalic. Sclerae anicteric. Buccal mucosa pink. NECK: Supple. CHEST: Rise symmetrical. Breath sounds clear. HEART: S1, S2. ABDOMEN: Soft. Bowel sounds present. EXTREMITIES: Without cyanosis. ASSESSMENT: 1. Systemic inflammatory response syndrome with persistent leukocytosis, likely reactive. 2. Status post cardiopulmonary arrest with cardiogenic shock. 3. Xea-FW-jlygvvlrd myocardial infarction. 4. Status post respiratory failure secondary to pulmonary edema and possible aspiration event. PLAN: The patient remains stable. He has been on antibiotics since July 02, today is day #11. Stool for C diff came back negative. Endotracheal aspirate grew Shama albicans, possibly likely c olonized. He is being followed by cardiology and cardiothoracic surgery and pulmonary teams. We wi ll discontinue antibiotics and observe him. Will start him on nystatin swish. Possible CABG versus PCI as per cardiothoracic surgery note. Dictated By: CAROLINA ISAAC [employer]EL PLANT OPERATOR for GEOVANNA MALLOY/ENMA Conf#: [id number] DID#: [id number]
[2016-07-12] MEDS: HEPARIN 25000 UNITS/250 ML 250 ML IV SCH (12:02)
--- NOTE | 2016-07-12 12:52 | PN ---
Date/Time of Note Date/Time of Note DATE: 07/12/16 TIME: 12:46 Assessment/Plan VTE Prophylaxis VTE Prophylaxis Intervention: heparin (gtt) Lines/Catheters IV Catheter Type (from Nrs): Central Line Central line still needed: Yes Urinary Cath still in place: Yes Reason Cath still needed: other (indicate) (d/c today) Assessment/Plan Assessment/Plan 1. Status post ventricular fibrillation cardiac arrest with ROSC - s/p hypothermia protocol. - s/p LHC with multivessel ds found. - possible coronary artery bypass graft surgery versus PCI 2. 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 Vent dependent respiratory failure secondary to cardiac arrest - s/p extubation 4. Shock likely septic with a cardiogenic component -resolved 5. Severe systolic dysfunction with EF of 15 to 20% 6. Pulmonary edema - resolved 7. Bilateral pneumonia, possibly from aspiration -improved - resp cultures 07/09: amadou 8. Chronic Tobacco user 10. Acute kidney injury, resolved. 11. Hyperglycemia : A1C 5.7: resolved - ISS 12. Diarrhea - Cdiff neg PLAN: * Will discuss next steps with cardiology and CTS * Transfer to telemetry if no immediate intervention * Continue current meds and care * Abx per ID * Hyperkalemia noted, will repeat to ensure accuracy and then intervene * Patient also still on heparin gtt per cardio * Spoke with patient in detail about need for cardiac intervention. * Further workup and management per clinical course. Critical Care time >35mins Subjective 24 Hr Interval Summary Free Text/Dictation Patient seen and examined. no new complaints feels well and is saying he doesn't need heart surgery. Family concerned that he might still be mildly confused. Exam/Review of Systems Vital Signs Vitals Vital Signs Date Time Temp Pulse Resp B/P Pulse Ox O2 Delivery O2 Flow Rate FiO2 07/12/16 12:00 99 07/12/16 08:00 99.0 28 98/70 99 Room Air 07/12/16 01:06 3.0 07/09/16 10:47 40 Intake and Output 07/11/16 07/11/16 07/12/16 14:59 22:59 06:59 Intake Total 466.2 ml 418.8 ml 100.6 ml Output Total 1370 ml 630 ml 1250 ml Balance -903.8 ml -211.2 ml -1149.4 ml Exam Constitutional: alert, oriented (?), No distress Psych: nl mood/affect Head: atraumatic, normocephalic Eyes: PERRL, icteric (mild) ENMT: mucosa pink and moist Respiratory: diminished breath sounds Cardiovascular: regular rate and rhythm, No murmurs/extra sounds Gastrointestinal: bowel sounds, non-tender, soft Extremities: edema (mild) Neurological: nl speech, No focal weakness Results Result Diagram: 07/12/16 0335 07/12/16 1207 Results 24 hrs Laboratory Tests Test 07/11/16 18:20 07/12/16 00:40 07/12/16 03:35 07/12/16 10:07 Activated Partial Thromboplast Time 63.2 H 74.3 *H 51.5 H Potassium Level 3.9 3.7 White Blood Count 16.7 H Red Blood Count 3.93 L Hemoglobin 12.0 L Hematocrit 36.0 L Mean Corpuscular Volume 91.6 Mean Corpuscular Hemoglobin 30.5 Mean Corpuscular Hemoglobin Concent 33.3 Red Cell Distribution Width 12.9 Platelet Count 510 H Mean Platelet Volume 8.5 Neutrophils % 72.9 Lymphocytes % 15.9 Monocytes % 9.8 Eosinophils % 0.2 Basophils % 0.4 Nucleated Red Blood Cells % 0.0 Neutrophils # 12.2 H Lymphocytes # 2.7 Monocytes # 1.6 H Eosinophils # 0.0 Basophils # 0.1 Nucleated Red Blood Cells # 0.0 Sodium Level 144 Chloride Level 103 Carbon Dioxide Level 28 Anion Gap 17 H Blood Urea Nitrogen 27 H Creatinine 0.95 Glucose Level 123 Calcium Level 9.6 Magnesium Level 2.4 Total Bilirubin 0.6 Direct Bilirubin 0.00 Indirect Bilirubin 0.6 Aspartate Amino Transf (AST/SGOT) 98 H Alanine Aminotransferase (ALT/SGPT) 222 H Alkaline Phosphatase 157 H Total Protein 8.2 H Albumin 4.4 Test 07/12/16 12:07 Potassium Level 5.4 H Medications Medications Current Medications Famotidine (Pepcid Iv) 20 mg Q12 IV Last administered on 07/12/16 09:41; Admin Dose 20 MG; Start 06/28/16 at 21:00 Meperidine HCl (Demerol) 25 mg Q4H PRN IV shivering post hypothermia pro Last administered on 06/29/16 14:44; Admin Dose 25 MG; Start 06/29/16 at 14:30 Dicyclomine HCl (Bentyl) 20 mg Q6H PRN NGT Hiccups Last administered on 09:54; Admin Dose 20 MG; Start 06/30/16 at 06:30 Miscellaneous Information 1 ea NOTE XX ; Start 06/30/16 at 09:30 Atorvastatin Calcium (Lipitor) 80 mg DAILY PO Last administered on 07/12/16 09: 43; Admin Dose 80 MG; Start 06/30/16 at 09:30 Acetaminophen 650 mg 650 mg Q6 PRN NGT PAIN AND OR ELEVATED TEMP Last administered on 07/05/16 21:05; Admin Dose 650 MG; Start 06/30/16 at 11:00 Dobutamine HCl/ Dextrose 250 ml @ 11.25 mls/ hr TITRATE IV Last administered on 07/08/16 08:13; Admin Dose 4.5 MLS/HR; Start 06/30/16 at 16:30 Acetaminophen (Tylenol Supp) 1,000 mg Q6H PRN [place] Fever Last administered on 04:03; Admin Dose 1,000 MG; Start 06/30/16 at 21:30 Amiodarone HCl (Cordarone) 400 mg BID PO Last administered on 07/12/16 09:43; Admin Dose 400 MG; Start 07/01/16 at 11:00 Aspirin 81 mg 81 mg DAILY NGT Last administered on 07/12/16 09:43; Admin Dose 81 MG; Start 07/02/16 at 09:00 Norepinephrine/ Dextrose (Levophed/D5W) 500 ml @ 1.87 mls/hr TITRATE IV ; Start 07/03/16 at 11:30 Furosemide (Lasix) 40 mg Q8H IV Last administered on 07/12/16 05:19; Admin Dose 40 MG; Start 07/03/16 at 21:00 Acetaminophen (Tylenol Tab) 650 mg Q4H PRN PO NON-CARDIAC PAIN LEVEL (1-3); Start 07/06/16 at 10:30 Morphine Sulfate (morphine) 2 mg Q2H PRN IV FOR NON CARDIAC PAIN (4-10) Last administered on 07/11/16 08:36; Admin Dose 2 MG; Start 07/06/16 at 10:30 Al Hydrox/Mg Hydrox/Simethicone (Mag-Al Plus) 30 ml Q4H PRN PO GASTROINTESTINAL UPSET; Start 07/06/16 at 10:30 Ondansetron HCl (Zofran Inj) 4 mg Q4H PRN IV NAUSEA AND/OR VOMITING; Start at 10:30 Potassium Chloride (Potassium Chloride Pwd/Soln) 40 meq DAILY GTB Last administered on 07/12/16t 09:42; Admin Dose 40 MEQ; Start 07/07/16 at 15:00 Guaifenesin (Robitussin Liquid Cup) 200 mg Q4H PRN PO COUGH; Start 07/10/16 at 11:30 Phenol (Cepastat Lozenge) 1 lozenge Q1H PRN MT COUGH; Start 07/10/16 at 11:30 Lorazepam (Ativan) 1 mg Q4H PRN IV AGITATION; Start 07/11/16 at 13:00 Lisinopril (Zestril) 2.5 mg DAILY PO ; Start 07/12/16 at 09:00 Nystatin (Nystatin Susp) 5 ml QID PO ; Start 07/12/16 at 13:00 CHRISTINA JOSEPH July 12, 2016 12:52
[2016-07-12] MEDS: NYSTATIN SUSP 5 ML CUP PO SCH ×3 (13:19→21:52)
--- NOTE | 2016-07-12 13:58 | CONS ---
Date/Time of Note Date/Time of Note DATE: 07/12/16 TIME: 13:55 Assessment/Plan Assessment/Plan Additional Assessment/Plan 1. Positive troponin, consistent with a non-ST elevation myocardial infarction. -Peaked at 40 and now downtrending significantly. Now post-op s/p diagnostic LHC 07/06 with 3vd 100% RCA/LCX both seen via collateral flow and 90-95% prox LAD - MED rx for now 2. Status post cardiac arrest - stable, con't to recover slowly 3. Cardiomyopathy, with a severely depressed left ventricular ejection fraction of approximately 15% to 20% by echo on this admission. s/p repeat Echo 07/06 limited EF now 25-30% - keep euvolemic 4. Respiratory failure. Status post intubation. 5. Ventricular fibrillation arrest, witnessed, status post defibrillator x1. 6. Encephalopathy. 7. Leukocytosis. 8. Anemia. 9. Hypotension.-on dobutamine alone now - titrate off as needed 10.Fevers - on anti-bx Consultation Date/Type/Reason Admit Date/Time Jun 28, 2016 at 20:48 Initial Consult Date 06/29/16 Type of Consultation: pulmonary ICU Referring Provider: CHRISTINA JOSEPH 24 HR Interval Summary Free Text/Dictation NO acute change - BP stable - medications reviewed. ROS: No fever, no chills, no nausea, no vomiting, no diarrhea/constipation No recent weight changes No chest pain, no PND, no orthopnea No dizziness, blurred vision No thirst, no heat or cold intolerance (per nurse) Exam/Review of Systems Vital Signs Vitals Vital Signs Date Time Temp Pulse Resp B/P Pulse Ox O2 Delivery O2 Flow Rate FiO2 07/12/16 12:00 98.3 98 18 103/71 98 Room Air 07/12/16 01:06 3.0 07/09/16 10:47 40 Intake and Output 07/11/16 07/11/16 07/12/16 15:00 23:00 07:00 Intake Total 466.2 ml 432.0 ml 87.4 ml Output Total 1420 ml 830 ml 950 ml Balance -953.8 ml -398.0 ml -862.6 ml Exam General: WN/WD/NAD, AOx 0 HEENT: Unicetric/atraumatic/EOMI (does not follow commands) NECK: JVD elevated, no thyromegaly Lymph: no lymphadenopathy HEART: regular with no S3, II/ systolic murmur at apex LUNGS: Coarse sounds ABD: soft, NT, ND, +BS : Intact Neuro: non focal SKIN: chronic changes EXT: trace edema Results Result Diagram: 07/12/16 0335 07/12/16 1207 Results 24 hrs Laboratory Tests Test 07/11/16 18:20 07/12/16 00:40 07/12/16 03:35 07/12/16 10:07 Activated Partial Thromboplast Time 63.2 H 74.3 *H 51.5 H Potassium Level 3.9 3.7 White Blood Count 16.7 H Red Blood Count 3.93 L Hemoglobin 12.0 L Hematocrit 36.0 L Mean Corpuscular Volume 91.6 Mean Corpuscular Hemoglobin 30.5 Mean Corpuscular Hemoglobin Concent 33.3 Red Cell Distribution Width 12.9 Platelet Count 510 H Mean Platelet Volume 8.5 Neutrophils % 72.9 Lymphocytes % 15.9 Monocytes % 9.8 Eosinophils % 0.2 Basophils % 0.4 Nucleated Red Blood Cells % 0.0 Neutrophils # 12.2 H Lymphocytes # 2.7 Monocytes # 1.6 H Eosinophils # 0.0 Basophils # 0.1 Nucleated Red Blood Cells # 0.0 Sodium Level 144 Chloride Level 103 Carbon Dioxide Level 28 Anion Gap 17 H Blood Urea Nitrogen 27 H Creatinine 0.95 Glucose Level 123 Calcium Level 9.6 Magnesium Level 2.4 Total Bilirubin 0.6 Direct Bilirubin 0.00 Indirect Bilirubin 0.6 Aspartate Amino Transf (AST/SGOT) 98 H Alanine Aminotransferase (ALT/SGPT) 222 H Alkaline Phosphatase 157 H Total Protein 8.2 H Albumin 4.4 Test 07/12/16 12:07 Potassium Level 5.4 H Medications Medications Current Medications Famotidine (Pepcid Iv) 20 mg Q12 IV Last administered on 07/12/16 09:41; Admin Dose 20 MG; Start 06/28/16 at 21:00 Meperidine HCl (Demerol) 25 mg Q4H PRN IV shivering post hypothermia pro Last administered on 06/29/16 14:44; Admin Dose 25 MG; Start 06/29/16 at 14:30 Dicyclomine HCl (Bentyl) 20 mg Q6H PRN NGT Hiccups Last administered on 09:54; Admin Dose 20 MG; Start 06/30/16 at 06:30 Miscellaneous Information 1 ea NOTE XX ; Start 06/30/16 at 09:30 Atorvastatin Calcium (Lipitor) 80 mg DAILY PO Last administered on 07/12/16 09: 43; Admin Dose 80 MG; Start 06/30/16 at 09:30 Acetaminophen 650 mg 650 mg Q6 PRN NGT PAIN AND OR ELEVATED TEMP Last administered on 07/05/16 21:05; Admin Dose 650 MG; Start 06/30/16 at 11:00 Dobutamine HCl/ Dextrose 250 ml @ 11.25 mls/ hr TITRATE IV Last administered on 07/08/16 08:13; Admin Dose 4.5 MLS/HR; Start 06/30/16 at 16:30 Acetaminophen (Tylenol Supp) 1,000 mg Q6H PRN TN Fever Last administered on 04:03; Admin Dose 1,000 MG; Start 06/30/16 at 21:30 Amiodarone HCl (Cordarone) 400 mg BID PO Last administered on 07/12/16 09:43; Admin Dose 400 MG; Start 07/01/16 at 11:00 Aspirin 81 mg 81 mg DAILY NGT Last administered on 07/12/16 09:43; Admin Dose 81 MG; Start 07/02/16 at 09:00 Norepinephrine/ Dextrose (Levophed/D5W) 500 ml @ 1.87 mls/hr TITRATE IV ; Start 07/03/16 at 11:30 Furosemide (Lasix) 40 mg Q8H IV Last administered on 07/12/16 13:19; Admin Dose 40 MG; Start 07/03/16 at 21:00 Acetaminophen (Tylenol Tab) 650 mg Q4H PRN PO NON-CARDIAC PAIN LEVEL (1-3); Start 07/06/16 at 10:30 Morphine Sulfate (morphine) 2 mg Q2H PRN IV FOR NON CARDIAC PAIN (4-10) Last administered on 07/11/16 08:36; Admin Dose 2 MG; Start 07/06/16 at 10:30 Al Hydrox/Mg Hydrox/Simethicone (Mag-Al Plus) 30 ml Q4H PRN PO GASTROINTESTINAL UPSET; Start 07/06/16 at 10:30 Ondansetron HCl (Zofran Inj) 4 mg Q4H PRN IV NAUSEA AND/OR VOMITING; Start at 10:30 Potassium Chloride (Potassium Chloride Pwd/Soln) 40 meq DAILY GTB Last administered on 07/12/16 09:42; Admin Dose 40 MEQ; Start 07/07/16 at 15:00 Guaifenesin (Robitussin Liquid Cup) 200 mg Q4H PRN PO COUGH; Start 07/10/16 at 11:30 Phenol (Cepastat Lozenge) 1 lozenge Q1H PRN MT COUGH; Start 07/10/16 at 11:30 Lorazepam (Ativan) 1 mg Q4H PRN IV AGITATION; Start 07/11/16 at 13:00 Lisinopril (Zestril) 2.5 mg DAILY PO ; Start 07/12/16 at 09:00 Nystatin (Nystatin Susp) 5 ml QID PO Last administered on 07/12/16 13:19; Admin Dose 5 ML; Start 07/12/16 at 13:00 JANICE HARKINS MD July 12, 2016 13:58
[2016-07-12 14:04] LABS: POTASSIUM 4.7 mmol/L (3.5-5.1)
[2016-07-12 14:07] LABS: CREATININE 0.82 mg/dl (0.61-1.24)
[2016-07-12 14:08] LABS: CALCIUM 10.1 mg/dl (8.4-10.2)
--- NOTE | 2016-07-12 15:58 | CONS ---
Date/Time of Note Date/Time of Note DATE: 07/12/16 TIME: 15:57 Assessment/Plan Assessment/Plan Additional Assessment/Plan Addendum: Pt refusing surgery - will stop heparin gtt now, lovenox subq 30 for dvt prophylax now. Consultation Date/Type/Reason Admit Date/Time Jun 28, 2016 at 20:48 Initial Consult Date 06/29/16 Type of Consultation: pulmonary ICU Referring Provider: CHRISTINA JOSEPH Exam/Review of Systems Vital Signs Vitals Vital Signs Date Time Temp Pulse Resp B/P Pulse Ox O2 Delivery O2 Flow Rate FiO2 07/12/16 15:00 102 18 100/91 98 Room Air 07/12/16 12:00 98.3 07/12/16 01:06 3.0 07/09/16 10:47 40 Intake and Output 07/11/16 07/11/16 07/12/16 15:00 23:00 07:00 Intake Total 466.2 ml 432.0 ml 99.6 ml Output Total 1420 ml 830 ml 1050 ml Balance -953.8 ml -398.0 ml -950.4 ml Results Result Diagram: 07/12/16 0335 07/12/16 1335 Results 24 hrs Laboratory Tests Test 07/11/16 18:20 07/12/16 00:40 07/12/16 03:35 07/12/16 10:07 Activated Partial Thromboplast Time 63.2 H 74.3 *H 51.5 H Potassium Level 3.9 3.7 White Blood Count 16.7 H Red Blood Count 3.93 L Hemoglobin 12.0 L Hematocrit 36.0 L Mean Corpuscular Volume 91.6 Mean Corpuscular Hemoglobin 30.5 Mean Corpuscular Hemoglobin Concent 33.3 Red Cell Distribution Width 12.9 Platelet Count 510 H Mean Platelet Volume 8.5 Neutrophils % 72.9 Lymphocytes % 15.9 Monocytes % 9.8 Eosinophils % 0.2 Basophils % 0.4 Nucleated Red Blood Cells % 0.0 Neutrophils # 12.2 H Lymphocytes # 2.7 Monocytes # 1.6 H Eosinophils # 0.0 Basophils # 0.1 Nucleated Red Blood Cells # 0.0 Sodium Level 144 Chloride Level 103 Carbon Dioxide Level 28 Anion Gap 17 H Blood Urea Nitrogen 27 H Creatinine 0.95 Glucose Level 123 Calcium Level 9.6 Magnesium Level 2.4 Total Bilirubin 0.6 Direct Bilirubin 0.00 Indirect Bilirubin 0.6 Aspartate Amino Transf (AST/SGOT) 98 H Alanine Aminotransferase (ALT/SGPT) 222 H Alkaline Phosphatase 157 H Total Protein 8.2 H Albumin 4.4 Test 07/12/16 12:07 07/12/16 13:35 Potassium Level 5.4 H 4.7 Sodium Level 142 Chloride Level 103 Carbon Dioxide Level 24 Anion Gap 20 H Blood Urea Nitrogen 31 H Creatinine 0.82 Glucose Level 86 Calcium Level 10.1 Medications Medications Current Medications Famotidine (Pepcid Iv) 20 mg Q12 IV Last administered on 07/12/16 09:41; Admin Dose 20 MG; Start 06/28/16 at 21:00 Meperidine HCl (Demerol) 25 mg Q4H PRN IV shivering post hypothermia pro Last administered on 06/29/16 14:44; Admin Dose 25 MG; Start 06/29/16 at 14:30 Dicyclomine HCl (Bentyl) 20 mg Q6H PRN NGT Hiccups Last administered on 09:54; Admin Dose 20 MG; Start 06/30/16 at 06:30 Miscellaneous Information 1 ea NOTE XX ; Start 06/30/16 at 09:30 Atorvastatin Calcium (Lipitor) 80 mg DAILY PO Last administered on 07/12/16 09: 43; Admin Dose 80 MG; Start 06/30/16 at 09:30 Amiodarone HCl (Cordarone) 400 mg BID PO Last administered on 07/12/16 09:43; Admin Dose 400 MG; Start 07/01/16 at 11:00 Aspirin (Aspirin) 81 mg DAILY NGT Last administered on 07/12/16 09:43; Admin Dose 81 MG; Start 07/02/16 at 09:00 Furosemide (Lasix) 40 mg Q8H IV Last administered on 07/12/16 13:19; Admin Dose 40 MG; Start 07/03/16 at 21:00 Acetaminophen (Tylenol Tab) 650 mg Q4H PRN PO NON-CARDIAC PAIN LEVEL (1-3); Start 07/06/16 at 10:30 Morphine Sulfate (morphine) 2 mg Q2H PRN IV FOR NON CARDIAC PAIN (4-10) Last administered on 07/11/16 08:36; Admin Dose 2 MG; Start 07/06/16 at 10:30 Al Hydrox/Mg Hydrox/Simethicone (Mag-Al Plus) 30 ml Q4H PRN PO GASTROINTESTINAL UPSET; Start 07/06/16 at 10:30 Ondansetron HCl (Zofran Inj) 4 mg Q4H PRN IV NAUSEA AND/OR VOMITING; Start at 10:30 Potassium Chloride (Potassium Chloride Pwd/Soln) 40 meq DAILY GTB Last administered on 07/12/16 09:42; Admin Dose 40 MEQ; Start 07/07/16 at 15:00 Guaifenesin (Robitussin Liquid Cup) 200 mg Q4H PRN PO COUGH; Start 07/10/16 at 11:30 Phenol (Cepastat Lozenge) 1 lozenge Q1H PRN MT COUGH; Start 07/10/16 at 11:30 Lorazepam (Ativan) 1 mg Q4H PRN IV AGITATION; Start 07/11/16 at 13:00 Lisinopril (Zestril) 2.5 mg DAILY PO ; Start 07/12/16 at 09:00 Nystatin (Nystatin Susp) 5 ml QID PO Last administered on 07/12/16 13:19; Admin Dose 5 ML; Start 07/12/16 at 13:00 JANICE HARKINS MD July 12, 2016 15:58
[2016-07-12] MEDS: ENOXAPARIN 30 MG/0.3 ML SYG SC SCH (22:01)
[2016-07-13] VITALS (11 sets, daily range): BP systolic 98–106; BP diastolic 60–70; PULSE 78–97; RESP 18–20
[2016-07-13] MEDS: FUROSEMIDE 40 MG INJ IV SCH ×3 (05:58→21:00)
[2016-07-13] MEDS: NYSTATIN SUSP 5 ML CUP PO SCH ×4 (08:14→21:50)
[2016-07-13] MEDS: FAMOTIDINE 20 MG INJ IV SCH ×2 (08:14→21:50)
[2016-07-13] MEDS: ASPIRIN 81 MG TAB NGT SCH (08:14)
[2016-07-13] MEDS: LISINOPRIL 5 MG TAB PO SCH (08:14)
[2016-07-13] MEDS: AMIODARONE 200 MG TAB PO SCH ×2 (08:15→21:51)
[2016-07-13] MEDS: ATORVASTATIN 80 MG TAB PO SCH (08:15)
[2016-07-13] MEDS: POTASSIUM CHLORIDE 20 MEQ POWDER FOR ORAL SOLN GTB SCH (08:22)
[2016-07-13 10:43] LABS: ADD SCAN DIFF NO
[2016-07-13 10:52] LABS: ABNORMAL IP MESSAGE 1; BASOPHIL # 0.1 10^3/ul (0.0-0.1); BASOPHILS % 0.6 % (0.0-2.0); EOSINOPHILS # 0.1 10^3/ul (0.0-0.5); EOSINOPHILS % 0.5 % (0.0-7.0); HEMATOCRIT 39.4 % (42.0-52.0); LYMPHOCYTES # 3.4 10^3/ul (0.8-2.9); LYMPHOCYTES % 19.9 % (15.0-51.0); MEAN CORPUSCULAR HEMOGLOBIN 30.6 pg (29.0-33.0); MEAN CORPUSCULAR VOLUME 92.7 fl (82.0-101.0); MEAN PLATELET VOLUME 8.8 fl (7.4-10.4); MONOCYTE # 1.6 10^3/ul (0.3-0.9); MONOCYTES % 9.2 % (0.0-11.0); NEUTROPHIL # 11.6 10^3/ul (1.6-7.5); NEUTROPHILS % 68.6 % (39.0-77.0); PLATELET COUNT 598 10^3/UL (140-415); RED BLOOD COUNT 4.25 10^6/ul (4.70-6.10); RED CELL DISTRIBUTION WIDTH 13.1 % (11.5-14.5)
[2016-07-13 10:57] LABS: POTASSIUM 4.7 mmol/L (3.5-5.1)
[2016-07-13 11:00] LABS: CREATININE 0.96 mg/dl (0.61-1.24)
[2016-07-13 11:01] LABS: CALCIUM 10.7 mg/dl (8.4-10.2)
--- NOTE | 2016-07-13 11:05 | CONS ---
Date/Time of Note Date/Time of Note DATE: 07/13/16 TIME: 11:03 Assessment/Plan Assessment/Plan Additional Assessment/Plan Assessment recommendations; 1. Patient admitted with cardiac arrest status post CPR, status post hypothermia protocol with excellent mental status. 2. Status post respiratory failure. 3. Cardiogenic shock. With poor ejection fraction however patient doing fairly well at this point. 4. Possibly some element of aspiration pneumonia, patient off antibiotics now. 5. Patient awaiting bypass surgery. Continue current treatment. Consultation Date/Type/Reason Admit Date/Time Jun 28, 2016 at 20:48 Initial Consult Date 06/29/16 Type of Consultation: pulmonary ICU Referring Provider: CHRISTINA JOSEPH 24 HR Interval Summary Free Text/Dictation Patient condition is stable. Has been transferred out of ICU to telemetry unit. Patient does complain of dyspnea on exertion. But denies any chest pain. Exam; young male, awake alert currently in no distress. Exam/Review of Systems Vital Signs Vitals Vital Signs Date Time Temp Pulse Resp B/P Pulse Ox O2 Delivery O2 Flow Rate FiO2 07/13/16 08:23 97 07/13/16 07:08 98.5 18 106/70 100 07/12/16 16:00 Room Air 07/12/16 01:06 3.0 07/09/16 10:47 40 Intake and Output 07/12/16 07/12/16 07/13/16 15:00 23:00 07:00 Intake Total 629.4 ml 100 ml Output Total 730 ml Balance -100.6 ml 100 ml Exam HEENT examination; supple neck, + JVD. No lymphadenopathy. No thyromegaly. Pharynx is clear. Patient has good dentition. Pupils are midsize and reactive to light. Chest examination; clear to auscultation. S1-S2 audible, no murmurs. Regular rhythm. Abdomen examination; soft, nontender. No organomegaly. Bowel sounds audible. Extremity examination; no peripheral edema. Pulses 2+ bilaterally. ENDOCRINOLOGY NURSE examination; no focal deficit. Results Result Diagram: 07/13/16 1028 07/12/16 1335 Results 24 hrs Laboratory Tests Test 07/12/16 12:07 07/12/16 13:35 07/12/16 17:14 07/13/16 10:28 Potassium Level 5.4 H 4.7 Sodium Level 142 Chloride Level 103 Carbon Dioxide Level 24 Anion Gap 20 H Blood Urea Nitrogen 31 H Creatinine 0.82 Glucose Level 86 Calcium Level 10.1 Bedside Glucose 119 White Blood Count 17.0 H Red Blood Count 4.25 L Hemoglobin 13.0 L Hematocrit 39.4 L Mean Corpuscular Volume 92.7 Mean Corpuscular Hemoglobin 30.6 Mean Corpuscular Hemoglobin Concent 33.0 Red Cell Distribution Width 13.1 Platelet Count 598 H Mean Platelet Volume 8.8 Neutrophils % 68.6 Lymphocytes % 19.9 Monocytes % 9.2 Eosinophils % 0.5 Basophils % 0.6 Nucleated Red Blood Cells % 0.0 Neutrophils # 11.6 H Lymphocytes # 3.4 H Monocytes # 1.6 H Eosinophils # 0.1 Basophils # 0.1 Nucleated Red Blood Cells # 0.0 Activated Partial Thromboplast Time 29.8 Medications Medications Current Medications Famotidine (Pepcid Iv) 20 mg Q12 IV Last administered on 07/13/16 08:14; Admin Dose 20 MG; Start 06/28/16 at 21:00 Meperidine HCl (Demerol) 25 mg Q4H PRN IV shivering post hypothermia pro Last administered on 06/29/16 14:44; Admin Dose 25 MG; Start 06/29/16 at 14:30 Dicyclomine HCl (Bentyl) 20 mg Q6H PRN NGT Hiccups Last administered on 09:54; Admin Dose 20 MG; Start 06/30/16 at 06:30 Miscellaneous Information 1 ea NOTE XX ; Start 06/30/16 at 09:30 Atorvastatin Calcium (Lipitor) 80 mg DAILY PO Last administered on 07/13/16 08: 15; Admin Dose 80 MG; Start 06/30/16 at 09:30 Amiodarone HCl (Cordarone) 400 mg BID PO Last administered on 07/13/16 08:15; Admin Dose 400 MG; Start 07/01/16 at 11:00 Aspirin (Aspirin) 81 mg DAILY NGT Last administered on 07/13/16 08:14; Admin Dose 81 MG; Start 07/02/16 at 09:00 Furosemide (Lasix) 40 mg Q8H IV Last administered on 07/13/16 05:58; Admin Dose 40 MG; Start 07/03/16 at 21:00 Acetaminophen (Tylenol Tab) 650 mg Q4H PRN PO NON-CARDIAC PAIN LEVEL (1-3); Start 07/06/16 at 10:30 Morphine Sulfate (morphine) 2 mg Q2H PRN IV FOR NON CARDIAC PAIN (4-10) Last administered on 07/11/16 08:36; Admin Dose 2 MG; Start 07/06/16 at 10:30 Al Hydrox/Mg Hydrox/Simethicone (Mag-Al Plus) 30 ml Q4H PRN PO GASTROINTESTINAL UPSET; Start 07/06/16 at 10:30 Ondansetron HCl (Zofran Inj) 4 mg Q4H PRN IV NAUSEA AND/OR VOMITING; Start at 10:30 Potassium Chloride (Potassium Chloride Pwd/Soln) 40 meq DAILY GTB Last administered on 07/13/16 08:22; Admin Dose 40 MEQ; Start 07/07/16 at 15:00 Guaifenesin (Robitussin Liquid Cup) 200 mg Q4H PRN PO COUGH Last administered on 07/12/16 17:16; Admin Dose 200 MG; Start 07/10/16 at 11:30 Phenol (Cepastat Lozenge) 1 lozenge Q1H PRN MT COUGH; Start 07/10/16 at 11:30 Lorazepam (Ativan) 1 mg Q4H PRN IV AGITATION; Start 07/11/16 at 13:00 Lisinopril (Zestril) 2.5 mg DAILY PO Last administered on 07/13/16 08:14; Admin Dose 2.5 MG; Start 07/12/16 at 09:00 Nystatin (Nystatin Susp) 5 ml QID PO Last administered on 07/13/16 08:14; Admin Dose 5 ML; Start 07/12/16 at 13:00 Enoxaparin Sodium (Lovenox) 30 mg QHS SC Last administered on 07/12/16 22:01; Admin Dose 30 MG; Start 07/12/16 at 21:00 SARITHA RAYMUNDO July 13, 2016 11:05
--- NOTE | 2016-07-13 11:27 | RADRPT ---
PROCEDURE: XR Chest 1 View. CLINICAL INDICATION: Shortness of breath. TECHNIQUE: AP view of the chest was obtained. COMPARISON: July 10, 2016 FINDINGS: The cardiomediastinal silhouette is within normal limits. Right-sided central line is unchanged. Haz y left lung infiltrates are stable, given differences in technique. Potential perihilar infiltrates in the right lung are stable. Osseous structures are intact. IMPRESSION: Stable hazy infiltrates in the left lung. Stable potential perihilar infiltrates in the right lung. RPTAT: AA .Lui Augustin MD, MD Date Time Electronically viewed and signed by .Lui Augustin MD, on 07/13/2016 11:26 .P/
--- NOTE | 2016-07-13 13:14 | PN ---
DATE: 07/13/2016 SUBJECTIVE: No events overnight. No fevers. The patient is alert, looks comfortable. Denies pain. Cr was discontinued today. He was transferred to telemetry LABORATORY DATA: WBC today 17, H and H 13 and 39.4, platelets 598. No bands. BUN 35, creatinine 0.96. DIAGNOSTICS: Chest x-ray this morning revealed stable hazy infiltrate in the left lung. INDWELLINGS: Right IJ triple-lumen catheter. PHYSICAL EXAMINATION: GENERAL: This is well-developed, middle-aged man who is awake, in no distress. HEENT: Head atraumatic, normocephalic. Sclerae anicteric. Buccal mucosa dry. NECK: Supple, trachea midline. CHEST: Rise symmetrical. Breath sounds clear, diminished to bases. HEART: S1, S2. ABDOMEN: Soft. Bowel sounds present. EXTREMITIES: No cyanosis. ASSESSMENT: 1. Systemic inflammatory response syndrome with persistent leukocytosis. 2. S/p pneumonia. 3. Pulmonary edema. 4. Status post cardiopulmonary arrest and cardiogenic shock. 5. Non-ST elevation myocardial infarction. PLAN: The patient remains stable. Completed 11 days of antibiotics. He is being followed by multiple consultants, needs CABG. We will continue observing him and panculture p.r.n. Dictated By: CAROLINA ISAAC SEAM FELLER for GEOVANNA MALLOY/ENMA Conf#: [id number] DID#: [id number] MTDD
--- NOTE | 2016-07-13 17:14 | PSY ---
Date/Time of Note Date/Time of Note DATE: 07/13/16 TIME: 16:36 Psychiatric Subjective Eval Consent Pt consented to telemedicine: Yes Subjective Evaluation Patient location: inpatient Chief Complaint: ROSC Reason for consult: Medical competency History of present illness This is a 36 year old male who was admitted to [facility] following a cardiac arrest. CPR was performed as well as ACLS procedures. He was in a coma for a considerable period of time. Since being conscious, family members have noted that there has been a change in his behavior as well as memory. The reason for the psychiatric consult is that the patient as severe coronary artery disease and experienced a serious cardiac event with a low ejection fraction. If he is not given bypass surgery, or a stent, sudden would be immanent. The patient has been refusing any proceedure but has not been able to explain what his current medical condition is or what the risks of refusing treatment. Further, his rationale for refusing is based on the psychotic impression that he has been poisoned while hospitalized and further treatment would only harm him. During the evaluation the patient was not able to state why he was admitted. He said that he was "attacked". He had a witnessed cardiac arrest. Further he was not able to state what was his current cardiac condition and what treatment was being recommended. He denied symptoms of anxiety, depression, panic or sleep disturbance. He denied hallucinations. He did appear delusional about his treatment and current medical condition. Past psychiatric history He denied having a prior history, but his brother said that he was treated for depression and anxiety in the past. 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 Psychiatric Objective Eval Review of Systems: Constitutional: Normal Eyes: Normal ENT: Normal Neck: Normal Respiratory: Normal Chest/Breast: Normal Cardiovascular: Abnormal GI: Normal Genitourinary: Normal Skin: Normal Lymphatic: Normal Musculoskeletal: Normal Neurological: Abnormal Other: Shortness of breath, exercise intolerance, paranoid thoughts, problems with memory Physical Examination: Sleep: Adequate Appetite: Adequate Energy: Adequate Interest: Adequate Mental Status Examination: Appearance: Groomed Eye Contact: Good Psychomotor Activity: Normal Behavior: Friendly, Cooperative Speech: Clear AFFECT: Appropriate Mood: Appropriate/Full Though Process: Linear Thought Content: Delusions Suicidal: No Homicidal: No Orientation: x4 Cognition: Alert Insight: Impared Judgement: Impared Attention Span: Intact Laboratory Results Laboratory Tests Test 07/11/16 18:20 07/12/16 00:40 07/12/16 03:35 07/12/16 10:07 Activated Partial Thromboplast Time 63.2Sec 74.3Sec 51.5Sec Potassium Level 3.9mmol/L 3.7mmol/L White Blood Count 16.710^3/ul Red Blood Count 3.9310^6/ul Hemoglobin 12.0g/dl Hematocrit 36.0% Mean Corpuscular Volume 91.6fl Mean Corpuscular Hemoglobin 30.5pg Mean Corpuscular Hemoglobin Concent 33.3g/dl Red Cell Distribution Width 12.9% Platelet Count 13967^3/UL Mean Platelet Volume 8.5fl Neutrophils % 72.9% Lymphocytes % 15.9% Monocytes % 9.8% Eosinophils % 0.2% Basophils % 0.4% Nucleated Red Blood Cells % 0.0/100WBC Neutrophils # 12.210^3/ul Lymphocytes # 2.710^3/ul Monocytes # 1.610^3/ul Eosinophils # 0.010^3/ul Basophils # 0.110^3/ul Nucleated Red Blood Cells # 0.010^3/ul Sodium Level 144mmol/L Chloride Level 103mmol/L Carbon Dioxide Level 28mmol/L Anion Gap 17 Blood Urea Nitrogen 27mg/dl Creatinine 0.95mg/dl Glucose Level 123mg/dl Calcium Level 9.6mg/dl Magnesium Level 2.4mg/dl Total Bilirubin 0.6mg/dl Direct Bilirubin 0.00mg/dl Indirect Bilirubin 0.6mg/dl Aspartate Amino Transf (AST/SGOT) 98IU/L Alanine Aminotransferase (ALT/SGPT) 222IU/L Alkaline Phosphatase 157IU/L Total Protein 8.2g/dl Albumin 4.4g/dl Test 07/12/16 12:07 07/12/16 13:35 07/12/16 17:14 07/13/16 10:28 Potassium Level 5.4mmol/L 4.7mmol/L 4.7mmol/L Sodium Level 142mmol/L 142mmol/L Chloride Level 103mmol/L 102mmol/L Carbon Dioxide Level 24mmol/L 21mmol/L Anion Gap 20 24 Blood Urea Nitrogen 31mg/dl 35mg/dl Creatinine 0.82mg/dl 0.96mg/dl Glucose Level 86mg/dl 128mg/dl Calcium Level 10.1mg/dl 10.7mg/dl Bedside Glucose 119mg/dL White Blood Count 17.010^3/ul Red Blood Count 4.2510^6/ul Hemoglobin 13.0g/dl Hematocrit 39.4% Mean Corpuscular Volume 92.7fl Mean Corpuscular Hemoglobin 30.6pg Mean Corpuscular Hemoglobin Concent 33.0g/dl Red Cell Distribution Width 13.1% Platelet Count 76391^3/UL Mean Platelet Volume 8.8fl Neutrophils % 68.6% Lymphocytes % 19.9% Monocytes % 9.2% Eosinophils % 0.5% Basophils % 0.6% Nucleated Red Blood Cells % 0.0/100WBC Neutrophils # 11.610^3/ul Lymphocytes # 3.410^3/ul Monocytes # 1.610^3/ul Eosinophils # 0.110^3/ul Basophils # 0.110^3/ul Nucleated Red Blood Cells # 0.010^3/ul Activated Partial Thromboplast Time 29.8Sec Troponin I 0.043ng/ml Assessment and Plan Assessment/Diagnosis [place] 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 [place] IV: problems making decisions [place] V: 30 Recommendation/Plan Medication Management The patient is not capable of making decisions for himself, especially for essential life preserving treatment. Suggest Neurology consult to assess anoxic injury. Also suggest neuropsychiatric testing to assess any cortical damage from anoxia. Suggest someone be assigned as the substituted decision maker. I am not clear as to what medications to prescribe at this time as his delusions may be time limited. Low dose Haldol like 1 mg bid may help. References: Can the Patient Decide? http://www.aafp.org/afp/0715/p299.html GIANA OGDEN MD July 13, 2016 17:04
--- NOTE | 2016-07-13 18:36 | CONS ---
Date/Time of Note Date/Time of Note DATE: 07/13/16 TIME: 18:30 Assessment/Plan Assessment/Plan Chief Complaint/Hosp Course IMPRESSION: 1. Positive troponin, consistent with a non-ST elevation myocardial infarction. -Peaked at 40 and now downtrending significantly. Now post-op s/p diagnostic LHC 07/06 with 3vd 100% RCA/LCX both seen via collateral flow and 90-95% prox LAD 2. Status post cardiac arrest. 3. Cardiomyopathy, with a severely depressed left ventricular ejection fraction of approximately 15% to 20% by echo on this admission. s/p repeat Echo 07/06 limited EF now 25-30% 4. Respiratory failure. Status post intubation. 5. Ventricular fibrillation arrest, witnessed, status post defibrillator x1. 6. Encephalopathy. 7. Leukocytosis. 8. Anemia. 9. Hypotension.-on dobutamine alone now 10.Fevers Recc: -Tele -Continue heparin -Continue asa -Continue lasix diuresis and follow volume status closely but will decrease to q12 -Follow for any recurrent bleeding -Continue PO amiodarone -Continue abx's and f/u cx data -Continue low dose ACEI and follow BP clsoely and if remains stable will start low dose BB -High risk PCI likely with ventricular support scheduled monday as thought to not be good surgical candidate at this time -S/p Telepsych consult with patient deemed incapable of making decisions pertaining to medical care at this time Problems: Consultation Date/Type/Reason Admit Date/Time Jun 28, 2016 at 20:48 Initial Consult Date 06/29/16 Type of Consultation: Cardiology Reason for Consultation Nstemi/cardiac arrest/cardiomyopathy Referring Provider: CHRISTINA JOSEPH Exam/Review of Systems Vital Signs Vitals Vital Signs Date Time Temp Pulse Resp B/P Pulse Ox O2 Delivery O2 Flow Rate FiO2 07/13/16 16:37 89 07/13/16 15:29 98.3 18 106/68 98 07/12/16 16:00 Room Air 07/12/16 01:06 3.0 07/09/16 10:47 40 Intake and Output 07/12/16 07/12/16 07/13/16 15:00 23:00 07:00 Intake Total 629.4 ml 100 ml Output Total 730 ml Balance -100.6 ml 100 ml Exam Review of Systems: CONSTITUTIONAL: No fevers, chills. PULMONARY: No sob CARDIOVASCULAR: No chest pain/palpitations GASTROINTESTINAL: No nausea/vomiting. GENITOURINARY: No hematuria/dysuria. MUSCULOSKELETAL: No myagias/arthalgias. PSYCHIATRIC: The patient denies depression. NEUROLOGIC: confused Constitutional: alert Psych: confusion, no complaints Head: normocephalic ENMT: mucosa pink and moist Neck: jvd (9 cm water), supple Respiratory: diminished breath sounds (at bases/B) Cardiovascular: regular rate and rhythm Gastrointestinal: non-tender, soft Musculoskeletal: muscle tone (normal) Extremities: edema (none) Neurological: other (No focal deficits) Results Result Diagram: 07/13/16 1028 07/13/16 1028 Results 24 hrs Laboratory Tests Test 07/13/16 10:28 White Blood Count 17.0 H Red Blood Count 4.25 L Hemoglobin 13.0 L Hematocrit 39.4 L Mean Corpuscular Volume 92.7 Mean Corpuscular Hemoglobin 30.6 Mean Corpuscular Hemoglobin Concent 33.0 Red Cell Distribution Width 13.1 Platelet Count 598 H Mean Platelet Volume 8.8 Neutrophils % 68.6 Lymphocytes % 19.9 Monocytes % 9.2 Eosinophils % 0.5 Basophils % 0.6 Nucleated Red Blood Cells % 0.0 Neutrophils # 11.6 H Lymphocytes # 3.4 H Monocytes # 1.6 H Eosinophils # 0.1 Basophils # 0.1 Nucleated Red Blood Cells # 0.0 Activated Partial Thromboplast Time 29.8 Sodium Level 142 Potassium Level 4.7 Chloride Level 102 Carbon Dioxide Level 21 Anion Gap 24 H Blood Urea Nitrogen 35 H Creatinine 0.96 Glucose Level 128 # Calcium Level 10.7 H Troponin I 0.043 Medications Medications Current Medications Famotidine (Pepcid Iv) 20 mg Q12 IV Last administered on 07/13/16 08:14; Admin Dose 20 MG; Start 06/28/16 at 21:00 Meperidine HCl (Demerol) 25 mg Q4H PRN IV shivering post hypothermia pro Last administered on 06/29/16 14:44; Admin Dose 25 MG; Start 06/29/16 at 14:30 Dicyclomine HCl (Bentyl) 20 mg Q6H PRN NGT Hiccups Last administered on 09:54; Admin Dose 20 MG; Start 06/30/16 at 06:30 Miscellaneous Information 1 ea NOTE XX ; Start 06/30/16 at 09:30 Atorvastatin Calcium (Lipitor) 80 mg DAILY PO Last administered on 07/13/16 08: 15; Admin Dose 80 MG; Start 06/30/16 at 09:30 Amiodarone HCl (Cordarone) 400 mg BID PO Last administered on 07/13/16 08:15; Admin Dose 400 MG; Start 07/01/16 at 11:00 Aspirin (Aspirin) 81 mg DAILY NGT Last administered on 07/13/16 08:14; Admin Dose 81 MG; Start 07/02/16 at 09:00 Furosemide (Lasix) 40 mg Q8H IV Last administered on 07/13/16 14:56; Admin Dose 40 MG; Start 07/03/16 at 21:00 Acetaminophen (Tylenol Tab) 650 mg Q4H PRN PO NON-CARDIAC PAIN LEVEL (1-3); Start 07/06/16 at 10:30 Morphine Sulfate (morphine) 2 mg Q2H PRN IV FOR NON CARDIAC PAIN (4-10) Last administered on 07/11/16 08:36; Admin Dose 2 MG; Start 07/06/16 at 10:30 Al Hydrox/Mg Hydrox/Simethicone (Mag-Al Plus) 30 ml Q4H PRN PO GASTROINTESTINAL UPSET; Start 07/06/16 at 10:30 Ondansetron HCl (Zofran Inj) 4 mg Q4H PRN IV NAUSEA AND/OR VOMITING; Start at 10:30 Potassium Chloride (Potassium Chloride Pwd/Soln) 40 meq DAILY GTB Last administered on 07/13/16 08:22; Admin Dose 40 MEQ; Start 07/07/16 at 15:00 Guaifenesin (Robitussin Liquid Cup) 200 mg Q4H PRN PO COUGH Last administered on 07/12/16 17:16; Admin Dose 200 MG; Start 07/10/16 at 11:30 Phenol (Cepastat Lozenge) 1 lozenge Q1H PRN MT COUGH; Start 07/10/16 at 11:30 Lorazepam (Ativan) 1 mg Q4H PRN IV AGITATION; Start 07/11/16 at 13:00 Lisinopril (Zestril) 2.5 mg DAILY PO Last administered on 07/13/16 08:14; Admin Dose 2.5 MG; Start 07/12/16 at 09:00 Nystatin (Nystatin Susp) 5 ml QID PO Last administered on 07/13/16 17:28; Admin Dose 5 ML; Start 07/12/16 at 13:00 Enoxaparin Sodium (Lovenox) 30 mg QHS SC Last administered on 07/12/16 22:01; Admin Dose 30 MG; Start 07/12/16 at 21:00 ELIGIO TYSON July 13, 2016 18:36
[2016-07-13] MEDS: ENOXAPARIN 30 MG/0.3 ML SYG SC SCH (21:59)
[2016-07-14] VITALS (13 sets, daily range): BP systolic 93–145; BP diastolic 54–85; PULSE 76–104; RESP 18–20
[2016-07-14] MEDS: FUROSEMIDE 40 MG INJ IV SCH ×3 (04:57→20:04)
--- NOTE | 2016-07-14 06:52 | CONS ---
DATE OF ADMISSION: 06/28/2016 DATE OF CONSULTATION: TYPE OF CONSULTATION: Neurological. HISTORY OF PRESENT ILLNESS: The patient is a 36-year-old gentleman who was seen on 07/13/2016 for evaluation of encephalopathy. He was admitted on 06/28/2016 following witnessed cardiopulmonary arrest at work. Paramedics came in less than 1 minute, and he received defibrillation and epinephrine with return of spontaneous circulation. He was admitted, intubated and placed on hypothermia protocol. CAT scan on admission did not show any abnormality. Gradually the patient has improved, was extubated. According to cardiology note, he has non-ST elevation myocardial infarction. He had cardiomyopathy with severely depressed ventricular ejection fraction of approximately 15 to 20 on admission, and repeat one shows 25% to 30%. The patient had coronary catheterization on 07/06/2016. The procedure shows 3- vessel obstructive coronary artery disease, high-grade lesions proximal LAD, 100 % occlusion of circumflex with collateral circulation and 100% occlusion of the right coronary artery with collateral circulation, so Cardiology recommends high -risk multivessel PCI. The patient doesn't want to proceed with any procedures. He was evaluated by psychiatrist, who also recommended neurological consultation. According to psychiatry note, since patient was extubated following cardiopulmonary arrest, per family members, there is a change in behavior as well as memory. MEDICATIONS: The patient is currently on following medications: 1. Lovenox. 2. Nystatin. 3. Zestril. 4. Ativan. 5. Robitussin. 6. ____. 7. Morphine. 8. Lasix. 9. Aspirin. 10. Amiodarone. 11. Bentyl. 12. Meperidine. 13. Pepcid. ALLERGIES: HE IS NOT ALLERGIC TO ANY MEDICATIONS. SOCIAL HISTORY: He denies any recent alcohol, tobacco or drug use. FAMILY HISTORY: Not contributory. REVIEW OF SYSTEMS: All pertinent positives included in the above history of present illness. LABORATORY DATA: The patient's labs show a WBC count 17, hemoglobin 13, hematocrit 39, platelets 596. PTT 29. Chemistry: BUN 35, creatinine 0.96, AST 96, ALT 222, alkaline phosphatase 157, albumin 4.4, total protein 8.2. Rest of comprehensive metabolic panel within normal limits. Tox screen was negative on admission with exception of benzodiazepines. PHYSICAL EXAMINATION: VITAL SIGNS: Temperature 98.4, pulse 68, respirations 20, blood pressure 98/60. GENERAL: The patient not in acute distress, lying in bed. HEENT: Normocephalic, atraumatic head. NECK: No carotid bruits. No thyromegaly. LUNGS: Clear to auscultation bilaterally. CARDIAC: Normal cardiac rhythm and sounds. ABDOMEN: Soft. EXTREMITIES: No cyanosis, clubbing or edema. NEUROLOGIC: He is awake, alert and oriented x2. He knows he is in the hospital , [facility]. He knows it's 07/2016. I told him the date, and he remembered day of the week and exact date after about 10 minutes. He is cooperative. He told me that he does not live with his family. He has 2 children, and he is homeless and currently lives in the van. He states that he gets his food which is ready to eat usually from [employer]. He denies any suicidal or homicidal ideations. As for event that brought him to the hospital , he stated that he does not have any recollection, but he thinks that he was poisoned. When I asked him why he thinks so, he said that he does remember being at work that day, and sometimes he feels that someone is messing with his van and his steering wheel is not aligned, and he feels that maybe someone poisoned him, but he does not have any idea who could be the one. When I told him that he suffered cardiopulmonary arrest and it was witnessed and that testing for the vessels of the heart showed severe narrowing for which he should be treated to avoid any problem in the future, he told me that he knows that he is going to be okay, and that he had some health problems in childhood and he did not need any surgery. The rest of neurological examination shows intact visual chavez bilaterally. Pupils reactive from 3 to 2 mm bilaterally. Extraocular movements intact without nystagmus. Symmetrical face. Preserved facial strength and sensation. Tongue is in midline. Palate elevates symmetrically. Motor strength examination seemed to be preserved in all extremities. Normal bulk, tone and strength. Sensory examination intact to light touch and pain. Deep tendon reflexes 2+ throughout. Downgoing toes bilaterally. Coordination and gait were preserved. No dysmetria or tremor. IMPRESSION: Status post cardiopulmonary arrest. According to the chart, family member noticed changes in behavior and memory after the arrest, so possibly he has some amount of post-anoxic changes. CAT scan ofthe brain did not show any abnormality on admission. The patient gives some irrational answers why he does not want to proceed with cardiac treatment he needed, and he also gave seemed to be somewhat paranoid delusional answer regarding reason for him to be in the hospital and why he suffered the arrest. He felt that he was poisoned. Psychiatry suggested to use small-dose antipsychotics. I absolutely agree with this. Clearly, he is not gravely disabled because he is able to provide or at least give a plan for provision for his care and lodging and food, but at least in terms of his ability to make informed decisions on medical care, he does not seem to be competent. There are no reported seizures , though just to evaluate for possible encephalopathy and rule out any major abnormality, will obtain EEG. I think it is also reasonable to obtain MRI of the brain. Continue current treatment otherwise. Thank you very much for this interesting consultation. Dictated By: ABBI GIANG/ENMA Conf#: [id number] DID#: [id number]
[2016-07-14] MEDS: LISINOPRIL 5 MG TAB PO SCH (09:00)
--- NOTE | 2016-07-14 09:21 | PN ---
Date/Time of Note Date/Time of Note DATE: 07/14/16 TIME: 09:19 Assessment/Plan VTE Prophylaxis VTE Prophylaxis Intervention: heparin Lines/Catheters IV Catheter Type (from Nrsg): Central Line Central line still needed: Yes Urinary Cath still in place: No Assessment/Plan Assessment/Plan 1. Status post ventricular fibrillation cardiac arrest with ROSC - s/p hypothermia protocol. - s/p LHC with multivessel ds found. - possible coronary artery bypass graft surgery versus PCI 2. 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 Vent dependent respiratory failure secondary to cardiac arrest - s/p extubation 4. Shock likely septic with a cardiogenic component -resolved 5. Severe systolic dysfunction with EF of 15 to 20% 6. Pulmonary edema - resolved 7. Bilateral pneumonia, possibly from aspiration -improved - resp cultures 07/09: amadou 8. Chronic Tobacco user 10. Acute kidney injury, resolved. 11. Hyperglycemia : A1C 5.7: resolved - ISS 12. Diarrhea - Cdiff neg PLAN: * Leucocytosis : f/u cultures, venous dopplers to r/o DVT * MRI ordered per neurology and pending * PCI scheduled terminatively for monday per cardio * appreciate Psych and neuro input * supportive care Subjective 24 Hr Interval Summary Free Text/Dictation Patient seen and examined. no new complaints no chest pain Exam/Review of Systems Vital Signs Vitals Vital Signs Date Time Temp Pulse Resp B/P Pulse Ox O2 Delivery O2 Flow Rate FiO2 07/14/16 08:24 89 07/14/16 07:23 98.3 18 98/66 98 07/12/16 16:00 Room Air 07/12/16 01:06 3.0 Intake and Output 07/13/16 07/13/16 07/14/16 15:00 23:00 07:00 Intake Total 600 ml 240 ml Balance 600 ml 240 ml Exam Constitutional: alert, oriented (?), No distress Psych: nl mood/affect Head: atraumatic, normocephalic Eyes: PERRL, icteric (mild) ENMT: mucosa pink and moist Respiratory: diminished breath sounds Cardiovascular: regular rate and rhythm, No murmurs/extra sounds Gastrointestinal: bowel sounds, non-tender, soft Extremities: edema (mild) Neurological: nl speech, No focal weakness Results Result Diagram: 07/13/16 1028 07/13/16 1028 Results 24 hrs Laboratory Tests Test 07/13/16 10:28 White Blood Count 17.0 H Red Blood Count 4.25 L Hemoglobin 13.0 L Hematocrit 39.4 L Mean Corpuscular Volume 92.7 Mean Corpuscular Hemoglobin 30.6 Mean Corpuscular Hemoglobin Concent 33.0 Red Cell Distribution Width 13.1 Platelet Count 598 H Mean Platelet Volume 8.8 Neutrophils % 68.6 Lymphocytes % 19.9 Monocytes % 9.2 Eosinophils % 0.5 Basophils % 0.6 Nucleated Red Blood Cells % 0.0 Neutrophils # 11.6 H Lymphocytes # 3.4 H Monocytes # 1.6 H Eosinophils # 0.1 Basophils # 0.1 Nucleated Red Blood Cells # 0.0 Activated Partial Thromboplast Time 29.8 Sodium Level 142 Potassium Level 4.7 Chloride Level 102 Carbon Dioxide Level 21 Anion Gap 24 H Blood Urea Nitrogen 35 H Creatinine 0.96 Glucose Level 128 # Calcium Level 10.7 H Troponin I 0.043 Medications Medications Current Medications Famotidine (Pepcid Iv) 20 mg Q12 IV Last administered on 07/13/16 21:50; Admin Dose 20 MG; Start 06/28/16 at 21:00 Meperidine HCl (Demerol) 25 mg Q4H PRN IV shivering post hypothermia pro Last administered on 06/29/16 14:44; Admin Dose 25 MG; Start 06/29/16 at 14:30 Dicyclomine HCl (Bentyl) 20 mg Q6H PRN NGT Hiccups Last administered on 09:54; Admin Dose 20 MG; Start 06/30/16 at 06:30 Miscellaneous Information 1 ea NOTE XX ; Start 06/30/16 at 09:30 Atorvastatin Calcium (Lipitor) 80 mg DAILY PO Last administered on 07/13/16 08: 15; Admin Dose 80 MG; Start 06/30/16 at 09:30 Amiodarone HCl (Cordarone) 400 mg BID PO Last administered on 07/13/16 21:51; Admin Dose 400 MG; Start 07/01/16 at 11:00 Aspirin (Aspirin) 81 mg DAILY NGT Last administered on 07/13/16 08:14; Admin Dose 81 MG; Start 07/02/16 at 09:00 Furosemide (Lasix) 40 mg Q8H IV Last administered on 07/14/16 04:57; Admin Dose 40 MG; Start 07/03/16 at 21:00 Acetaminophen (Tylenol Tab) 650 mg Q4H PRN PO NON-CARDIAC PAIN LEVEL (1-3); Start 07/06/16 at 10:30 Morphine Sulfate (morphine) 2 mg Q2H PRN IV FOR NON CARDIAC PAIN (4-10) Last administered on 07/11/16 08:36; Admin Dose 2 MG; Start 07/06/16 at 10:30 Al Hydrox/Mg Hydrox/Simethicone (Mag-Al Plus) 30 ml Q4H PRN PO GASTROINTESTINAL UPSET; Start 07/06/16 at 10:30 Ondansetron HCl (Zofran Inj) 4 mg Q4H PRN IV NAUSEA AND/OR VOMITING; Start at 10:30 Potassium Chloride (Potassium Chloride Pwd/Soln) 40 meq DAILY GTB Last administered on 07/13/16 08:22; Admin Dose 40 MEQ; Start 07/07/16 at 15:00 Guaifenesin (Robitussin Liquid Cup) 200 mg Q4H PRN PO COUGH Last administered on 07/12/16 17:16; Admin Dose 200 MG; Start 07/10/16 at 11:30 Phenol (Cepastat Lozenge) 1 lozenge Q1H PRN MT COUGH; Start 07/10/16 at 11:30 Lorazepam (Ativan) 1 mg Q4H PRN IV AGITATION; Start 07/11/16 at 13:00 Lisinopril (Zestril) 2.5 mg DAILY PO Last administered on 07/13/16 08:14; Admin Dose 2.5 MG; Start 07/12/16 at 09:00 Nystatin (Nystatin Susp) 5 ml QID PO Last administered on 07/13/16 21:50; Admin Dose 5 ML; Start 07/12/16 at 13:00 Enoxaparin Sodium (Lovenox) 30 mg QHS SC Last administered on 07/13/16 21:59; Admin Dose 30 MG; Start 07/12/16 at 21:00 CHRISTINA JOSEPH July 14, 2016 09:21
[2016-07-14] MEDS: NYSTATIN SUSP 5 ML CUP PO SCH ×4 (09:48→20:04)
[2016-07-14] MEDS: POTASSIUM CHLORIDE 20 MEQ POWDER FOR ORAL SOLN GTB SCH (09:49)
[2016-07-14] MEDS: FAMOTIDINE 20 MG INJ IV SCH ×2 (09:50→20:04)
[2016-07-14] MEDS: ATORVASTATIN 80 MG TAB PO SCH (09:50)
[2016-07-14] MEDS: ASPIRIN 81 MG TAB NGT SCH (09:50)
[2016-07-14] MEDS: AMIODARONE 200 MG TAB PO SCH ×2 (09:51→20:04)
[2016-07-14] MEDS: HALOPERIDOL 1 MG TAB PO SCH ×2 (11:40→20:03)
--- NOTE | 2016-07-14 11:48 | RADRPT ---
PROCEDURE: US bilateral lower extremity veins. CLINICAL INDICATION: Bilateral leg pain and swelling. TECHNIQUE: Multiple longitudinal and transverse images of the bilateral lower extremity veins were obtained with whitten scale and color Doppler imaging. The common femoral vein, femoral vein, and popl iteal vein were evaluated. 2D grayscale measurements with compression sonography, color Doppler, and pulsed Doppler with augmentation. COMPARISON: No prior studies are available for comparison. FINDINGS: The bilateral common femoral, femoral and popliteal veins are normally compressible throughout. Col or flow demonstrates normal filling of the vessels. Normal waveforms are visualized and there is no rmal response to augmentation. IMPRESSION: 1. No evidence of deep vein thrombosis involving either lower extremity. RPTAT: QQ .Oscar Velazquez MD, MD Date Time Electronically viewed and signed by .Oscar Velazquez MD, on 07/14/2016 11:48 .R/
[2016-07-14 11:54] LABS: ADD SCAN DIFF NO
[2016-07-14 11:56] LABS: BASOPHIL # 0.1 10^3/ul (0.0-0.1); BASOPHILS % 0.7 % (0.0-2.0); EOSINOPHILS # 0.1 10^3/ul (0.0-0.5); EOSINOPHILS % 0.9 % (0.0-7.0); HEMOGLOBIN 12.3 g/dl (14.0-18.0); LYMPHOCYTES # 2.9 10^3/ul (0.8-2.9); LYMPHOCYTES % 23.1 % (15.0-51.0); MEAN CORPUSCULAR HEMOGLOBIN 30.6 pg (29.0-33.0); MEAN CORPUSCULAR HGB CONC 33.2 g/dl (32.0-37.0); MEAN PLATELET VOLUME 8.8 fl (7.4-10.4); MONOCYTE # 0.8 10^3/ul (0.3-0.9); MONOCYTES % 6.8 % (0.0-11.0); NEUTROPHIL # 8.3 10^3/ul (1.6-7.5); NEUTROPHILS % 66.4 % (39.0-77.0); PLATELET COUNT 538 10^3/UL (140-415); RED BLOOD COUNT 4.02 10^6/ul (4.70-6.10); WHITE BLOOD COUNT 12.4 10^3/ul (4.8-10.8)
[2016-07-14 12:16] LABS: POTASSIUM 5.2 mmol/L (3.5-5.1)
[2016-07-14 12:18] LABS: CREATININE 0.88 mg/dl (0.61-1.24)
[2016-07-14 12:19] LABS: CALCIUM 9.8 mg/dl (8.4-10.2)
[2016-07-14 15:19] LABS: ADD UMIC NO; URINE BILIRUBIN (Dip) NEGATIVE (NEGATIVE); URINE BLOOD (Dip) NEGATIVE (NEGATIVE); URINE COLOR LT. YELLOW (YELLOW); URINE GLUCOSE (Dip) NEGATIVE (NEGATIVE); URINE KETONES (Dip) NEGATIVE (NEGATIVE); URINE LEUKOCYTE ESTERASE (Dip) NEGATIVE (NEGATIVE); URINE NITRITE (Dip) NEGATIVE (NEGATIVE); URINE TOTAL PROTEIN (Dip) NEGATIVE (NEGATIVE); URINE UROBILINOGEN (Dip) 0.2 E.U./dL (0.1-1.0)
--- NOTE | 2016-07-14 15:32 | RADRPT ---
PROCEDURE: MR Brain without contrast. CLINICAL INDICATION: Neurologic deficit, anoxic encephalopathy, psychosis TECHNIQUE: An MRI of the brain was performed on a high-resolution MR scanner utilizing the followi ng sequences: Sagittal and axial T1 weighted, axial T2 weighted, axial FLAIR, coronal GRE, and axial diffusion weighted with ADC mapping. Images were reviewed high-resolution PACS workstation. No con trast was administered. COMPARISON: Correlation head CT 06/28/2016 FINDINGS: No acute parenchymal hemorrhage, mass effect, or midline shift. No evidence of recent infarct. The g ray-white differentiation is preserved. Focal FLAIR hyperintensity in the left external capsule is nonspecific. No suspicious parenchymal hypointense signal abnormalities are seen on the GRE images to suggest the presence of blood degradation products. The ventricles are normal in size for age. Normal flow voids are visible in the proximal intracranial arteries suggesting their patency. Trace fluid in the bilateral mastoids. Scattered mild paranasal sinus mucosal thickening. IMPRESSION: No evidence of acute infarct or hypoxic ischemic encephalopathy. Preserved whitten white differentiation. The basal cisterns are clear. Trace bilateral mastoid fluid. RPTAT: AA .Niko Jon MD, MD Date Time Electronically viewed and signed by .Niko Jon MD, on 07/14/2016 15:31 .T/
[2016-07-14 16:04] LABS: POTASSIUM 4.4 mmol/L (3.5-5.1)
[2016-07-14 16:06] LABS: CREATININE 1.02 mg/dl (0.61-1.24)
[2016-07-14 16:07] LABS: CALCIUM 9.8 mg/dl (8.4-10.2)
[2016-07-14] MEDS: ENOXAPARIN 30 MG/0.3 ML SYG SC SCH (20:13)
--- NOTE | 2016-07-14 22:06 | CONS ---
Date/Time of Note Date/Time of Note DATE: 07/14/16 TIME: 22:04 Assessment/Plan Assessment/Plan Chief Complaint/Hosp Course SUBJECTIVE: No events overnight. No fevers. The patient is alert, feels good , looks comfortable. INDWELLINGS: Right IJ triple-lumen catheter. PHYSICAL EXAMINATION: GENERAL: This is well-developed, middle-aged man who is awake, in no distress. HEENT: Head atraumatic, normocephalic. Sclerae anicteric. Buccal mucosa dry. NECK: Supple, trachea midline. CHEST: Rise symmetrical. Breath sounds clear, diminished to bases. HEART: S1, S2. ABDOMEN: Soft. Bowel sounds present. EXTREMITIES: No cyanosis. ASSESSMENT: 1. Systemic inflammatory response syndrome with leukocytosis. 2. S/p pneumonia. 3. Pulmonary edema. 4. Status post cardiopulmonary arrest and cardiogenic shock. 5. Non-ST elevation myocardial infarction. PLAN: The patient remains stable. WBC decreasing, he is off abx. He is being followed by multiple consultants, will gomez cx prn [facility] staff Problems: Consultation Date/Type/Reason Admit Date/Time Jun 28, 2016 at 20:48 Initial Consult Date 06/29/16 Type of Consultation: ID Referring Provider: CHRISTINA JOSEPH Exam/Review of Systems Vital Signs Vitals Vital Signs Date Time Temp Pulse Resp B/P Pulse Ox O2 Delivery O2 Flow Rate FiO2 07/14/16 20:21 104 07/14/16 20:01 98.2 18 108/70 97 07/12/16 16:00 Room Air 07/12/16 01:06 3.0 Intake and Output 07/13/16 07/13/16 07/14/16 15:00 23:00 07:00 Intake Total 600 ml 240 ml Balance 600 ml 240 ml Results Result Diagram: 07/14/16 1135 07/14/16 1540 Results 24 hrs Laboratory Tests Test 07/14/16 11:35 07/14/16 12:50 07/14/16 15:40 White Blood Count 12.4 #H Red Blood Count 4.02 L Hemoglobin 12.3 L Hematocrit 37.0 L Mean Corpuscular Volume 92.0 Mean Corpuscular Hemoglobin 30.6 Mean Corpuscular Hemoglobin Concent 33.2 Red Cell Distribution Width 13.0 Platelet Count 538 H Mean Platelet Volume 8.8 Neutrophils % 66.4 Lymphocytes % 23.1 Monocytes % 6.8 Eosinophils % 0.9 Basophils % 0.7 Nucleated Red Blood Cells % 0.0 Neutrophils # 8.3 H Lymphocytes # 2.9 Monocytes # 0.8 Eosinophils # 0.1 Basophils # 0.1 Nucleated Red Blood Cells # 0.0 Sodium Level 140 139 Potassium Level 5.2 H 4.4 Chloride Level 104 99 Carbon Dioxide Level 22 25 Anion Gap 19 H 19 H Blood Urea Nitrogen 37 H 38 H Creatinine 0.88 1.02 Glucose Level 167 110 # Calcium Level 9.8 9.8 Urine Color LT. YELLOW Urine Clarity CLEAR Urine pH 5.5 Urine Specific [place] 1.025 Urine Ketones NEGATIVE Urine Nitrite NEGATIVE Urine Bilirubin NEGATIVE Urine Urobilinogen 0.2 E.U./dL Urine Leukocyte Esterase NEGATIVE Urine Hemoglobin NEGATIVE Urine Glucose NEGATIVE Urine Total Protein NEGATIVE Medications Medications Current Medications Famotidine (Pepcid Iv) 20 mg Q12 IV Last administered on 07/14/16 20:04; Admin Dose 20 MG; Start 06/28/16 at 21:00 Meperidine HCl (Demerol) 25 mg Q4H PRN IV shivering post hypothermia pro Last administered on 06/29/16 14:44; Admin Dose 25 MG; Start 06/29/16 at 14:30 Dicyclomine HCl (Bentyl) 20 mg Q6H PRN NGT Hiccups Last administered on 09:54; Admin Dose 20 MG; Start 06/30/16 at 06:30 Miscellaneous Information 1 ea NOTE XX ; Start 06/30/16 at 09:30 Atorvastatin Calcium (Lipitor) 80 mg DAILY PO Last administered on 07/14/16 09: 50; Admin Dose 80 MG; Start 06/30/16 at 09:30 Amiodarone HCl (Cordarone) 400 mg BID PO Last administered on 07/14/16 20:04; Admin Dose 400 MG; Start 07/01/16 at 11:00 Aspirin (Aspirin) 81 mg DAILY NGT Last administered on 07/14/16 09:50; Admin Dose 81 MG; Start 07/02/16 at 09:00 Furosemide (Lasix) 40 mg Q8H IV Last administered on 07/14/16 20:04; Admin Dose 40 MG; Start 07/03/16 at 21:00 Acetaminophen (Tylenol Tab) 650 mg Q4H PRN PO NON-CARDIAC PAIN LEVEL (1-3); Start 07/06/16 at 10:30 Morphine Sulfate (morphine) 2 mg Q2H PRN IV FOR NON CARDIAC PAIN (4-10) Last administered on 07/11/16 08:36; Admin Dose 2 MG; Start 07/06/16 at 10:30 Al Hydrox/Mg Hydrox/Simethicone (Mag-Al Plus) 30 ml Q4H PRN PO GASTROINTESTINAL UPSET; Start 07/06/16 at 10:30 Ondansetron HCl (Zofran Inj) 4 mg Q4H PRN IV NAUSEA AND/OR VOMITING; Start at 10:30 Potassium Chloride (Potassium Chloride Pwd/Soln) 40 meq DAILY GTB Last administered on 07/14/16 09:49; Admin Dose 40 MEQ; Start 07/07/16 at 15:00 Guaifenesin (Robitussin Liquid Cup) 200 mg Q4H PRN PO COUGH Last administered on 07/12/16 17:16; Admin Dose 200 MG; Start 07/10/16 at 11:30 Phenol (Cepastat Lozenge) 1 lozenge Q1H PRN MT COUGH; Start 07/10/16 at 11:30 Lorazepam (Ativan) 1 mg Q4H PRN IV AGITATION; Start 07/11/16 at 13:00 Lisinopril (Zestril) 2.5 mg DAILY PO Last administered on 07/13/16 08:14; Admin Dose 2.5 MG; Start 07/12/16 at 09:00 Nystatin (Nystatin Susp) 5 ml QID PO Last administered on 07/14/16 20:04; Admin Dose 5 ML; Start 07/12/16 at 13:00 Enoxaparin Sodium (Lovenox) 30 mg QHS SC Last administered on 07/14/16 20:13; Admin Dose 30 MG; Start 07/12/16 at 21:00 Haloperidol (Haldol) 1 mg BID PO Last administered on 07/14/16 20:03; Admin Dose 1 MG; Start 07/14/16 at 10:00 CAROLINA ISAAC NP July 14, 2016 22:06
--- NOTE | 2016-07-14 23:19 | SP ---
DATE OF PROCEDURE: 07/14/2016 INDICATION: A 36-year-old gentleman status post cardiopulmonary arrest with some memory impairment afterwards. DESCRIPTION OF PROCEDURE: Routine EEG was recorded digitally. [id number] and yxlzi-ef-ufn casper ages were recorded and reviewed. All impedances were measured and recorded. Cap electrodes w ere placed in accordance with International 10-20 system of electrode placement. FINDINGS: Symmetrically distributed background activity of [id number]-fi-[id number] amplitude ranging in frequ ency between 8-10 cycles per second was seen in the awake state. Photic stimulation produced normal driving. Eye opening attenuates the background. Hyperventilation elicits no epileptiform activity . When patient gets drowsy, background rhythm gets slightly less organized, and some slowing of 4-6 cycles per second was seen. IMPRESSION: No evidence of epileptiform transients. No signs of ongoing electrographic seizures or lateralized slowing. IMPRESSION: Normal study. Dictated By: ABBI GIANG/ENMA Conf#: [id number] DID#: [id number]
[2016-07-15] VITALS (57 sets, daily range): BP systolic 88–121; BP diastolic 53–99; PULSE 69–100; RESP 16–30
[2016-07-15] MEDS: FUROSEMIDE 40 MG INJ IV SCH ×3 (05:00→21:02)
[2016-07-15] MEDS ORDERED: IODIXANOL LOCM 100 ML BTL ONE (08:34)
[2016-07-15] MEDS ORDERED: LIDOCAINE 100 MG SYRINGE ONE (08:34)
[2016-07-15] MEDS ORDERED: MIDAZOLAM 1 MG/ML 2 ML INJ ONE (08:41)
[2016-07-15] MEDS ORDERED: FENTAnyl 50 MCG/ML VIAL ONE (08:42)
[2016-07-15] MEDS: AMIODARONE 200 MG TAB PO SCH ×2 (09:00→21:03)
[2016-07-15] MEDS: FAMOTIDINE 20 MG INJ IV SCH ×2 (09:00→21:24)
[2016-07-15] MEDS: HALOPERIDOL 1 MG TAB PO SCH ×2 (09:00→21:03)
[2016-07-15] MEDS: NYSTATIN SUSP 5 ML CUP PO SCH ×4 (09:00→21:03)
[2016-07-15] MEDS: ATORVASTATIN 80 MG TAB PO SCH (09:00)
[2016-07-15] MEDS: LISINOPRIL 5 MG TAB PO SCH (09:00)
[2016-07-15] MEDS: ASPIRIN 81 MG TAB NGT SCH (09:00)
[2016-07-15] MEDS: POTASSIUM CHLORIDE 20 MEQ POWDER FOR ORAL SOLN GTB SCH (09:00)
[2016-07-15 09:23] LABS: ADD SCAN DIFF NO
[2016-07-15 09:28] LABS: BASOPHIL # 0.2 10^3/ul (0.0-0.1); BASOPHILS % 1.6 % (0.0-2.0); EOSINOPHILS # 0.2 10^3/ul (0.0-0.5); EOSINOPHILS % 1.5 % (0.0-7.0); HEMATOCRIT 37.7 % (42.0-52.0); HEMOGLOBIN 12.8 g/dl (14.0-18.0); LYMPHOCYTES # 3.5 10^3/ul (0.8-2.9); LYMPHOCYTES % 27.3 % (15.0-51.0); MEAN CORPUSCULAR HEMOGLOBIN 31.2 pg (29.0-33.0); MEAN PLATELET VOLUME 8.8 fl (7.4-10.4); MONOCYTE # 1.1 10^3/ul (0.3-0.9); MONOCYTES % 8.2 % (0.0-11.0); NEUTROPHIL # 7.6 10^3/ul (1.6-7.5); NEUTROPHILS % 58.8 % (39.0-77.0); PLATELET COUNT 620 10^3/UL (140-415); RED CELL DISTRIBUTION WIDTH 12.9 % (11.5-14.5); WHITE BLOOD COUNT 12.8 10^3/ul (4.8-10.8)
--- NOTE | 2016-07-15 09:34 | CONS ---
DATE OF ADMISSION: 06/28/2016 DATE OF CONSULTATION: 07/15/2016 PALLIATIVE CARE CONSULTATION HISTORY: This is a 36-year-old gentleman who sustained a cardiac arrest out of hospital, with ROSC. The entire story is taken from the patient's medical record, as the patient is a non-historian. Francisco contreras members are at the bedside and I have obtained additional information from them. He was trans ferred to the intensive care unit and seen by cardiology, Dr. Chow, and essentially had a long st ay in the intensive care unit, but improved such that he has been transferred [facility] or. This gentleman had positive troponins, consistent with non-ST myocardial infarction. He had a left heart catheterization done on 07/06/2016 that shows significant three-vessel disease, 100% RCA and LCX, and 90-95% proximal LAD. Cardiomyopathy, with an ejection fraction of 15 to 20%. Then jeovany etime thereafter he had ventricular fibrillation cardiac arrest, which was witnessed in the ICU, suc cessfully terminated with defibrillator x1. The reason for this consultation is that it is unclear w hether or not the patient has decision-making capacity and what his options are in the event that th e patient does not want to have any further aggressive intervention, per cardiology's recommendation , as the patient has given conflicting information to physicians about what he would like to have do ne for the remainder of his hospital course and any further cardiac workup. REASON FOR CONSULTATION: As above. The participants when I spoke to the patient were his son, brother and his spouse; however, he spoke on his behalf, was able to express his wishes to me at that time. Understanding somewhat unc lear, hopes that he states is that he wanted to go home and get stronger and start exercising and go back to his baseline exercise quality of life. Culture preference, communication, past medical exp eriences, and caregiver concerns are noncontributory towards this consultation. PROGNOSIS: Is not to this consultation. MEDICATIONS: Please refer to the reconciliation sheet. ALLERGIES: NO KNOWN DRUG ALLERGIES. MAJOR MEDICAL PROBLEMS IN THE PAST: Entirely as per history of present illness, and at this time so me baseline anoxic injury, which seems to be improving at this time. 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 By reviewing medical records, the patient was a nonsmoker, nondrinker, no recreational drug use. FAMILY HISTORY: Noncontributory towards this consultation. REVIEW OF SYSTEMS: Noncontributory. A 12-point review of systems has been discussed; otherwise unre markable, except as per history of present illness. PHYSICAL EXAMINATION: Deferred at this time, per family conference. A family conference was done w ith the above family members. First of all, there are no pain management issues associated with daphne s gentleman, so I will not address that. Psychosocial issues include that he is, at least to my disc ussion with him, adamant that he does not want to undergo a bypass surgery. Whether or not he under stands what stenting is is very unclear to me at this time. Family members are in agreement that he should undergo any procedures which are necessary to avoid another episode of a near experien ce. I do not believe this is cultural, spiritual, existential. Insofar as ethical and legal issues I strongly recommend that a bioethics consultation be done to have hospital employee counselor give recommenda tions on the next best course of legal options at this point, since the patient can make some decisi ons on his own, but obviously does not understand the severity of his underlying medical condition a nd the fact that he needs to have some further medical interventions done. I have made the recommen dation for a bioethics consultation. Dictated By: LISHA TINOCO MD, LP/ENMA Conf#: [id number] DID#: [id number]
[2016-07-15 09:48] LABS: CREATININE 1.05 mg/dl (0.61-1.24)
[2016-07-15] MEDS ORDERED: LIDOCAINE 1% (MDV) 20 ML INJ ONE ×2 (09:48→09:56)
[2016-07-15] MEDS ORDERED: IOHEXOL 350MG/ML 50 ML BTL ONE (09:57)
[2016-07-15] MEDS ORDERED: BIVALIRUDIN 250MG /NS 50 ML 50 ML IVPB ONE (09:57)
[2016-07-15] MEDS ORDERED: NITROGLYCERIN (IC) 100 MCG/ML INJ ONE (10:27)
[2016-07-15] MEDS ORDERED: ASPIRIN 325 MG TAB ONE (10:35)
[2016-07-15] MEDS ORDERED: CLOPIDOGREL 300 MG TAB ONE (10:35)
--- NOTE | 2016-07-15 11:15 | CONS ---
Date/Time of Note Date/Time of Note DATE: 07/15/16 TIME: 11:10 Assessment/Plan Assessment/Plan Chief Complaint/Hosp Course IMPRESSION: 1. Positive troponin, consistent with a non-ST elevation myocardial infarction. -Peaked at 40 and now downtrending significantly. Now post-op s/p diagnostic LHC 07/06 with 3vd 100% RCA/LCX both seen via collateral flow and 90-95% prox LAD. Now POD#0 s/p PTCA/stent x LAD x 1 to LCX with PTCA/stent 2. Status post cardiac arrest. 3. Cardiomyopathy, with a severely depressed left ventricular ejection fraction of approximately 15% to 20% by echo on this admission. s/p repeat Echo 07/06 limited EF now 25-30% 4. Respiratory failure. Status post intubation. 5. Ventricular fibrillation arrest, witnessed, status post defibrillator x1. 6. Encephalopathy. 7. Leukocytosis. 8. Anemia. 9. Hypotension-now improved 10.Fevers Recc: -Tele -Continue lasix diuresis and follow volume status closely but will decrease to q12 -Follow for any recurrent bleeding -Continue PO amiodarone -Continue abx's and f/u cx data -Continue low dose ACEI and follow BP clsoely and if remains stable will start low dose BB -Continue now plavix/asa s/p PTCA/stent x 1 -Maintain IABP@1:1 augmentation with probable d/c in AM tomorrow Problems: Consultation Date/Type/Reason Admit Date/Time Jun 28, 2016 at 20:48 Initial Consult Date 06/29/16 Type of Consultation: Cardiology Reason for Consultation Cardiac arrest Referring Provider: CHRISTINA JOSEPH Exam/Review of Systems Vital Signs Vitals Vital Signs Date Time Temp Pulse Resp B/P Pulse Ox O2 Delivery O2 Flow Rate FiO2 07/15/16 08:58 73 07/15/16 07:32 98.0 18 96/53 98 07/12/16 16:00 Room Air 07/12/16 01:06 3.0 Intake and Output 07/14/16 07/14/16 07/15/16 15:00 23:00 07:00 Intake Total 500 ml 400 ml Balance 500 ml 400 ml Exam Review of Systems: CONSTITUTIONAL: No fevers, chills. PULMONARY: No sob CARDIOVASCULAR: intermittent chest pain/palpitations GASTROINTESTINAL: No nausea/vomiting. GENITOURINARY: No hematuria/dysuria. MUSCULOSKELETAL: No obvious myagias/arthalgias. PSYCHIATRIC: The patient denies depression. NEUROLOGIC: mild confusion Constitutional: alert Psych: no complaints Head: normocephalic ENMT: mucosa pink and moist Neck: jvd (9 cm water), supple Respiratory: diminished breath sounds Cardiovascular: regular rate and rhythm Gastrointestinal: non-tender, soft Musculoskeletal: muscle tone (normal) Extremities: edema (iglesia) Neurological: other (No focal deficits) Results Result Diagram: 07/15/16 0845 07/15/16 0845 Results 24 hrs Laboratory Tests Test 07/14/16 11:35 07/14/16 12:50 07/14/16 15:40 07/15/16 08:45 White Blood Count 12.4 #H 12.8 H Red Blood Count 4.02 L 4.10 L Hemoglobin 12.3 L 12.8 L Hematocrit 37.0 L 37.7 L Mean Corpuscular Volume 92.0 92.0 Mean Corpuscular Hemoglobin 30.6 31.2 Mean Corpuscular Hemoglobin Concent 33.2 34.0 Red Cell Distribution Width 13.0 12.9 Platelet Count 538 H 620 H Mean Platelet Volume 8.8 8.8 Neutrophils % 66.4 58.8 Lymphocytes % 23.1 27.3 Monocytes % 6.8 8.2 Eosinophils % 0.9 1.5 Basophils % 0.7 1.6 Nucleated Red Blood Cells % 0.0 0.0 Neutrophils # 8.3 H 7.6 H Lymphocytes # 2.9 3.5 H Monocytes # 0.8 1.1 H Eosinophils # 0.1 0.2 Basophils # 0.1 0.2 H Nucleated Red Blood Cells # 0.0 0.0 Sodium Level 140 139 136 Potassium Level 5.2 H 4.4 5.0 Chloride Level 104 99 100 Carbon Dioxide Level 22 25 23 Anion Gap 19 H 19 H 18 H Blood Urea Nitrogen 37 H 38 H 41 H Creatinine 0.88 1.02 1.05 Glucose Level 167 110 # 112 Calcium Level 9.8 9.8 10.0 Urine Color LT. YELLOW Urine Clarity CLEAR Urine pH 5.5 Urine Specific [place] 1.025 Urine Ketones NEGATIVE Urine Nitrite NEGATIVE Urine Bilirubin NEGATIVE Urine Urobilinogen 0.2 E.U./dL Urine Leukocyte Esterase NEGATIVE Urine Hemoglobin NEGATIVE Urine Glucose NEGATIVE Urine Total Protein NEGATIVE Medications Medications Current Medications Famotidine (Pepcid Iv) 20 mg Q12 IV Last administered on 07/14/16 20:04; Admin Dose 20 MG; Start 06/28/16 at 21:00 Meperidine HCl (Demerol) 25 mg Q4H PRN IV shivering post hypothermia pro Last administered on 06/29/16 14:44; Admin Dose 25 MG; Start 06/29/16 at 14:30 Dicyclomine HCl (Bentyl) 20 mg Q6H PRN NGT Hiccups Last administered on 09:54; Admin Dose 20 MG; Start 06/30/16 at 06:30 Miscellaneous Information 1 ea NOTE XX ; Start 06/30/16 at 09:30 Atorvastatin Calcium (Lipitor) 80 mg DAILY PO Last administered on 07/14/16 09: 50; Admin Dose 80 MG; Start 06/30/16 at 09:30 Amiodarone HCl (Cordarone) 400 mg BID PO Last administered on 07/14/16 20:04; Admin Dose 400 MG; Start 07/01/16 at 11:00 Aspirin (Aspirin) 81 mg DAILY NGT Last administered on 07/14/16 09:50; Admin Dose 81 MG; Start 07/02/16 at 09:00 Furosemide (Lasix) 40 mg Q8H IV Last administered on 07/14/16 20:04; Admin Dose 40 MG; Start 07/03/16 at 21:00 Acetaminophen (Tylenol Tab) 650 mg Q4H PRN PO NON-CARDIAC PAIN LEVEL (1-3); Start 07/06/16 at 10:30 Morphine Sulfate (morphine) 2 mg Q2H PRN IV FOR NON CARDIAC PAIN (4-10) Last administered on 07/11/16 08:36; Admin Dose 2 MG; Start 07/06/16 at 10:30 Al Hydrox/Mg Hydrox/Simethicone (Mag-Al Plus) 30 ml Q4H PRN PO GASTROINTESTINAL UPSET; Start 07/06/16 at 10:30 Ondansetron HCl (Zofran Inj) 4 mg Q4H PRN IV NAUSEA AND/OR VOMITING; Start at 10:30 Potassium Chloride (Potassium Chloride Pwd/Soln) 40 meq DAILY GTB Last administered on 07/14/16 09:49; Admin Dose 40 MEQ; Start 07/07/16 at 15:00 Guaifenesin (Robitussin Liquid Cup) 200 mg Q4H PRN PO COUGH Last administered on 07/12/16 17:16; Admin Dose 200 MG; Start 07/10/16 at 11:30 Phenol (Cepastat Lozenge) 1 lozenge Q1H PRN MT COUGH; Start 07/10/16 at 11:30 Lorazepam (Ativan) 1 mg Q4H PRN IV AGITATION; Start 07/11/16 at 13:00 Lisinopril (Zestril) 2.5 mg DAILY PO Last administered on 07/13/16 08:14; Admin Dose 2.5 MG; Start 07/12/16 at 09:00 Nystatin (Nystatin Susp) 5 ml QID PO Last administered on 07/14/16 20:04; Admin Dose 5 ML; Start 07/12/16 at 13:00 Enoxaparin Sodium (Lovenox) 30 mg QHS SC Last administered on 07/14/16 20:13; Admin Dose 30 MG; Start 07/12/16 at 21:00 Haloperidol (Haldol) 1 mg BID PO Last administered on 07/14/16 20:03; Admin Dose 1 MG; Start 07/14/16 at 10:00 ELIGIO TYSON July 15, 2016 11:15
[2016-07-15] MEDS ORDERED: OXYCODONE/ACETAMINOPHEN (5/325) TAB PO PRN (11:30)
[2016-07-15] MEDS ORDERED: ZOLPIDEM 5 MG TAB PO PRN (11:30)
[2016-07-15] MEDS ORDERED: ONDANSETRON 4 MG INJ IV PRN (11:30)
[2016-07-15] MEDS ORDERED: AL HYDROX/MG HYDROX/SIMETH 30 ML CUP PO PRN (11:30)
[2016-07-15] MEDS ORDERED: ACETAMINOPHEN 325 MG TAB PO PRN (11:30)
[2016-07-15] MEDS ORDERED: morphine 2 MG INJ IV PRN (11:30)
[2016-07-15] MEDS: SOD CHLORIDE 0.9% 1,000 ML IV SCH (11:50)
--- NOTE | 2016-07-15 12:37 | CARRPT ---
DATE OF PROCEDURE: 07/15/2016 TYPE OF PROCEDURE: 1. Left heart catheterization. 2. Coronary angiography. 3. Placement of intra-aortic balloon pump to left femoral artery. 4. Percutaneous transluminal coronary angioplasty to proximal ostial LAD for a high-grade lesion wi th a 3.5 x 16 mm Synergy drug-eluting stent. 5. Percutaneous transluminal coronary angioplasty with placement of Resolute 3.0 x 15 mm to chronic total occlusion of circumflex proximally. 6. Moderate conscious sedation times an hour and 15 minutes. TYPE OF ANESTHESIA: Conscious and local. INDICATION: Cardiac arrest, cardiomyopathy, congestive heart failure, acute myocardial infarction a nd cardiogenic shock ATTENDING PHYSICIAN: Eligio Chow MD REFERRING PHYSICIAN: Charly Russell MD from the hospitalist service. BRIEF HISTORY AND HOSPITAL COURSE: Mr. Villatoro is a 36-year-old male with history of hypertension who initially was admitted with a full cardiac arrest. The patient was placed on hypothermic protocol and ruled in for acute myocardial infarction with a peak troponin greater than 40. The patient did undergo diagnostic catheterization revealing multivessel obstructive coronary artery disease and was thus referred for coronary artery bypass graft surgery. The patient at that time was on dobutamine inotropic support and on and off of pressor support. The patient continued to get medical manageme nt. The patient was able to be weaned off dobutamine, but continued to have extremely low ejection fraction and marginal blood pressures and neurologic dysfunction post-arrest. Given these findings, the patient was deemed to be a poor surgical candidate and has now been brought back to the cardiac liaison inspection laboratory assistant in order to undergo left heart catheterization, PTCA and stent placement if possible. PROCEDURE: After informed consent was obtained, the patient was brought to the [facility] cardiac catheterization lab where his right and left groins were prepped and draped in a st erile fashion. Lidocaine 2% was infiltrated into the left groin in order to achieve adequate local anesthesia. Using the modified Seldinger technique, the left femoral artery was cannulated and an 8 -[place] sheath was placed and through that, the intra-aortic balloon pump was placed 40 cm into the patient's descending aorta, placed just above the tabatha, about 1 to 2 cm and placed on 1:1 augmenta tion. At this time, the patient had an Angiomax bolus continuous infusion. An XBLAD guide 6-[place]ian was used to cannulate the left main coronary ostium. A 0.014 Balance Middleweight guidewire was pa ssed distal to the lesion in the LAD. The LAD lesion was pretreated with a 2.5 x 12 mm balloon up t o 16 atmospheres. This was removed and the lesion was stented with a 3.5 x 16 mm drug-eluting stent , inflated x2 to 18 atmospheres, times approximately 8 to 10 seconds each. Followup angiogram was o btained revealing excellent result deployment of the stent, DESTINEE 3 flow throughout the vessel, no si gns of complication including perforation or dissection, and additionally he had a diagonal that bif urcated just at the area of the stent remained widely patent, suffering very minimal plaque shift. At this time, the wire was pulled back and initially attempted to be placed down the circumflex. Th is proved unsuccessful. This wire was exchanged for a Supplier Specialist 50, which was able to cross the chronic total occlusion and be placed into the distal obtuse marginal. From here a 2.0 x 12 mm balloon, f resh, was used to perform balloon angioplasty upon the lesions in the proximal circumflex restarting blood flow to the remainder of the circumflex distribution. Subsequently, the balloon was removed and the area was stented with a 3.0 x 15 mm Resolute drug-eluting stent up to 16 atmospheres and pos t-dilated at 18 atmospheres. The stent delivery system was removed. Followup angiogram was obtaine d revealing excellent result deployment of the stent, DESTINEE 3 flow throughout the vessel and no signs of complication including perforation or dissection. Subsequently, at this time, the interventiona l guide and guidewires were removed. Final angiographic images of the right femoral arterial insert ion site were then obtained revealing the sheath to be well placed in the right common femoral arter y. Subsequently, a 6-[place] Perclose device was used to seal the vessel, completing the procedure. There were no noted complications. FINDINGS: Coronary angiography: Left main 4.5 mm, no significant stenoses. LAD diffusely proximally is 3.5 m m and at its takeoff has a complex appearing 90% to 95% lesion, and just at this point a diagonal bi furcates. The remainder of LAD thereafter is free of significant focal stenoses and goes around the apex. Additionally, multiple septal branches give collateral flow grade I to II to the right coron zhen artery, recapitulating the distal right coronary artery. The circumflex proximally is a 3 mm ve ssel and its proximal portion has a tubular 30% to 40% stenosis and then becomes 100% occluded with faint collateral flow refilling the patient's distal circumflex via the LAD branches and septal bran ches. The right coronary artery was not imaged on this procedure as it was previously imaged on the patient's diagnostic procedure and found to be 100% occluded. PTCA and stent placement: Prior to PTCA and stent placement within the LAD, the patient had a 90% t o 95% proximal stenosis. Post-PTCA and stent placement, the patient had no residual stenosis, DESTINEE 3 flow throughout the vessel, no signs of complication including perforation or dissection and a mil d to moderate step-down at the distal end of the stent and diagonal . PTCA and stent placement within the circumflex: Prior to PTCA and stent placement of the circumflex , the patient had a 100% occlusion in the proximal circumflex. Post-PTCA and stent placement, the p atient had no residual stenosis in that region, a proximal step-up moderately and no signs of compli cation including perforation or dissection and complete return of the entire circumflex distribution . TOTAL FLUOROSCOPY TIME: 13.3 minutes. TOTAL CONTRAST: 170 mL. IMPRESSION: Multivessel obstructive coronary artery disease, status post successful percutaneous tr ansluminal coronary angioplasty and stent placement x1 to proximal ostial left anterior descending w ith drug-eluting stent and x1 to proximal portion of the circumflex for chronic total occlusion. RECOMMENDATIONS: In light of procedure and findings at this time would: 1. Maintain the patient on Plavix 75 mg 1 tab p.o. daily for at least 1 year. 2. Aspirin 325 mg 1 tab p.o. daily indefinitely. 3. Maximize medical management. 4. Aggressive risk factor reduction. 5. The patient will be maintained on intra-aortic balloon pump at 1:1 today with probable weaning t omorrow and if hemodynamics remain stable, probable discontinuation of the intra-aortic balloon pump . Dictated By: ELIGIO DIAZ/ENMA Conf#: [id number] DID#: [id number]
[2016-07-15] MEDS ORDERED: HEPARIN 1000 UNITS/ML 10 ML INJ IV PRN (14:00)
--- NOTE | 2016-07-15 14:10 | CONS ---
Date/Time of Note Date/Time of Note DATE: 07/15/16 TIME: 14:05 Assessment/Plan Assessment/Plan Chief Complaint/Hosp Course SUBJECTIVE: No events overnight. S/p sawyer cork slabs in am, no fevers. The patient is alert, looks comfortable. INDWELLINGS: Right IJ triple-lumen catheter, L fem Balloon pump. PHYSICAL EXAMINATION: GENERAL: This is well-developed, middle-aged man who is awake, in no distress. HEENT: Head atraumatic, normocephalic. Sclerae anicteric. Buccal mucosa dry. NECK: Supple, trachea midline. CHEST: Rise symmetrical. Breath sounds clear, diminished to bases. HEART: S1, S2. ABDOMEN: Soft. Bowel sounds present. EXTREMITIES: No cyanosis. ASSESSMENT: 1. Systemic inflammatory response syndrome with resolving leukocytosis. 2. S/p resp failure/pneumonia/pulmonary edema. 3. Status post cardiopulmonary arrest and cardiogenic shock. 4. Non-ST elevation myocardial infarction==> s/p Left heart catheterization, placement of intra-aortic balloon pump to left femoral artery, PTCA. PLAN: The patient remains stable. Continue present care, card rec-s, gomez cx prn DW staff Problems: Consultation Date/Type/Reason Admit Date/Time Jun 28, 2016 at 20:48 Initial Consult Date 06/29/16 Type of Consultation: ID Referring Provider: CHRISTINA JOSEPH Exam/Review of Systems Vital Signs Vitals Vital Signs Date Time Temp Pulse Resp B/P Pulse Ox O2 Delivery O2 Flow Rate FiO2 07/15/16 12:00 82 07/15/16 07:32 98.0 18 96/53 98 07/12/16 16:00 Room Air 07/12/16 01:06 3.0 Intake and Output 07/14/16 07/14/16 07/15/16 15:00 23:00 07:00 Intake Total 500 ml 400 ml Balance 500 ml 400 ml Results Result Diagram: 07/15/16 0845 07/15/16 0845 Results 24 hrs Laboratory Tests Test 07/14/16 15:40 07/15/16 08:45 Sodium Level 139 136 Potassium Level 4.4 5.0 Chloride Level 99 100 Carbon Dioxide Level 25 23 Anion Gap 19 H 18 H Blood Urea Nitrogen 38 H 41 H Creatinine 1.02 1.05 Glucose Level 110 # 112 Calcium Level 9.8 10.0 White Blood Count 12.8 H Red Blood Count 4.10 L Hemoglobin 12.8 L Hematocrit 37.7 L Mean Corpuscular Volume 92.0 Mean Corpuscular Hemoglobin 31.2 Mean Corpuscular Hemoglobin Concent 34.0 Red Cell Distribution Width 12.9 Platelet Count 620 H Mean Platelet Volume 8.8 Neutrophils % 58.8 Lymphocytes % 27.3 Monocytes % 8.2 Eosinophils % 1.5 Basophils % 1.6 Nucleated Red Blood Cells % 0.0 Neutrophils # 7.6 H Lymphocytes # 3.5 H Monocytes # 1.1 H Eosinophils # 0.2 Basophils # 0.2 H Nucleated Red Blood Cells # 0.0 Medications Medications Current Medications Famotidine (Pepcid Iv) 20 mg Q12 IV Last administered on 07/14/16 20:04; Admin Dose 20 MG; Start 06/28/16 at 21:00 Meperidine HCl (Demerol) 25 mg Q4H PRN IV shivering post hypothermia pro Last administered on 06/29/16 14:44; Admin Dose 25 MG; Start 06/29/16 at 14:30 Dicyclomine HCl (Bentyl) 20 mg Q6H PRN NGT Hiccups Last administered on 09:54; Admin Dose 20 MG; Start 06/30/16 at 06:30 Miscellaneous Information 1 ea NOTE XX ; Start 06/30/16 at 09:30 Atorvastatin Calcium (Lipitor) 80 mg DAILY PO Last administered on 07/14/16 09: 50; Admin Dose 80 MG; Start 06/30/16 at 09:30 Amiodarone HCl (Cordarone) 400 mg BID PO Last administered on 07/14/16 20:04; Admin Dose 400 MG; Start 07/01/16 at 11:00 Furosemide (Lasix) 40 mg Q8H IV Last administered on 07/14/16 20:04; Admin Dose 40 MG; Start 07/03/16 at 21:00 Morphine Sulfate (morphine) 2 mg Q2H PRN IV FOR NON CARDIAC PAIN (4-10) Last administered on 07/11/16 08:36; Admin Dose 2 MG; Start 07/06/16 at 10:30 Ondansetron HCl (Zofran Inj) 4 mg Q4H PRN IV NAUSEA AND/OR VOMITING; Start at 10:30 Potassium Chloride (Potassium Chloride Pwd/Soln) 40 meq DAILY GTB Last administered on 07/14/16 09:49; Admin Dose 40 MEQ; Start 07/07/16 at 15:00 Guaifenesin (Robitussin Liquid Cup) 200 mg Q4H PRN PO COUGH Last administered on 07/12/16 17:16; Admin Dose 200 MG; Start 07/10/16 at 11:30 Phenol (Cepastat Lozenge) 1 lozenge Q1H PRN MT COUGH; Start 07/10/16 at 11:30 Lorazepam (Ativan) 1 mg Q4H PRN IV AGITATION; Start 07/11/16 at 13:00 Lisinopril (Zestril) 2.5 mg DAILY PO Last administered on 07/13/16 08:14; Admin Dose 2.5 MG; Start 07/12/16 at 09:00 Nystatin (Nystatin Susp) 5 ml QID PO Last administered on 07/14/16 20:04; Admin Dose 5 ML; Start 07/12/16 at 13:00 Haloperidol (Haldol) 1 mg BID PO Last administered on 07/14/16 20:03; Admin Dose 1 MG; Start 07/14/16 at 10:00 Aspirin (Ecotrin) 325 mg DAILY PO ; Start 07/16/16 at 09:00 Clopidogrel Bisulfate (plaVIX) 75 mg DAILY PO ; Start 07/16/16 at 09:00 Acetaminophen (Tylenol Tab) 650 mg Q4H PRN PO NON-CARDIAC PAIN LEVEL 1-3; Start 07/15/16 at 11:30 Oxycodone/ Acetaminophen (Percocet (5/ 325)) 1 tab Q4H PRN PO REPORTED NON- CARDIAC PAIN 4-7; Start 07/15/16 at 11:30 Morphine Sulfate (morphine) 1 mg Q1H PRN IV PAIN NOT RELIEVED BY OTHERS Last administered on 07/15/16 12:41; Admin Dose 1 MG; Start 07/15/16 at 11:30 Al Hydrox/Mg Hydrox/ Simethicone 30 ml 30 ml Q4H PRN PO GASTROINTESTINAL UPSET ; Start 07/15/16 at 11:30 Sodium Chloride (NS) 1,000 ml @ 75 mls/hr [id number] IV Last administered on t 11:50; Admin Dose 75 MLS/HR; Start 07/15/16 at 11:15; Stop 07/16/16 at 00:34 CAROLINA ISAAC NP July 15, 2016 14:10
--- NOTE | 2016-07-15 14:39 | PN ---
Date/Time of Note Date/Time of Note DATE: 07/15/16 TIME: 0800 Assessment/Plan VTE Prophylaxis VTE Prophylaxis Intervention: heparin Lines/Catheters IV Catheter Type (from Nrsg): Central Line Central line still needed: Yes Urinary Cath still in place: No Assessment/Plan Assessment/Plan 1. Status post ventricular fibrillation cardiac arrest with ROSC - s/p hypothermia protocol. - s/p LHC with multivessel ds found. 2. 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 Vent dependent respiratory failure secondary to cardiac arrest - s/p extubation 4. Shock likely septic with a cardiogenic component -resolved 5. Severe systolic dysfunction with EF of 15 to 20% 6. Pulmonary edema - resolved 7. Bilateral pneumonia, possibly from aspiration -improved - resp cultures 07/09: amadou 8. Chronic Tobacco user 10. Acute kidney injury, resolved. 11. Hyperglycemia : A1C 5.7: resolved - ISS 12. Diarrhea - Cdiff neg PLAN: * PCI today * Continue supportive care. Subjective 24 Hr Interval Summary Constitutional: no complaints Exam/Review of Systems Vital Signs Vitals Vital Signs Date Time Temp Pulse Resp B/P Pulse Ox O2 Delivery O2 Flow Rate FiO2 07/15/16 12:00 82 07/15/16 07:32 98.0 18 96/53 98 07/12/16 16:00 Room Air 07/12/16 01:06 3.0 Intake and Output 07/14/16 07/14/16 07/15/16 15:00 23:00 07:00 Intake Total 500 ml 400 ml Balance 500 ml 400 ml Exam Constitutional: alert, oriented (?), No distress Psych: nl mood/affect Head: atraumatic, normocephalic Eyes: PERRL, icteric (mild) ENMT: mucosa pink and moist Respiratory: diminished breath sounds Cardiovascular: regular rate and rhythm, No murmurs/extra sounds Gastrointestinal: bowel sounds, non-tender, soft Extremities: edema (mild) Neurological: nl speech, No focal weakness Results Result Diagram: 07/15/16 0845 07/15/16 0845 Results 24 hrs Laboratory Tests Test 07/14/16 15:40 07/15/16 08:45 Sodium Level 139 136 Potassium Level 4.4 5.0 Chloride Level 99 100 Carbon Dioxide Level 25 23 Anion Gap 19 H 18 H Blood Urea Nitrogen 38 H 41 H Creatinine 1.02 1.05 Glucose Level 110 # 112 Calcium Level 9.8 10.0 White Blood Count 12.8 H Red Blood Count 4.10 L Hemoglobin 12.8 L Hematocrit 37.7 L Mean Corpuscular Volume 92.0 Mean Corpuscular Hemoglobin 31.2 Mean Corpuscular Hemoglobin Concent 34.0 Red Cell Distribution Width 12.9 Platelet Count 620 H Mean Platelet Volume 8.8 Neutrophils % 58.8 Lymphocytes % 27.3 Monocytes % 8.2 Eosinophils % 1.5 Basophils % 1.6 Nucleated Red Blood Cells % 0.0 Neutrophils # 7.6 H Lymphocytes # 3.5 H Monocytes # 1.1 H Eosinophils # 0.2 Basophils # 0.2 H Nucleated Red Blood Cells # 0.0 Medications Medications Current Medications Famotidine (Pepcid Iv) 20 mg Q12 IV Last administered on 07/14/16 20:04; Admin Dose 20 MG; Start 06/28/16 at 21:00 Meperidine HCl (Demerol) 25 mg Q4H PRN IV shivering post hypothermia pro Last administered on 06/29/16 14:44; Admin Dose 25 MG; Start 06/29/16 at 14:30 Dicyclomine HCl (Bentyl) 20 mg Q6H PRN NGT Hiccups Last administered on 09:54; Admin Dose 20 MG; Start 06/30/16 at 06:30 Miscellaneous Information 1 ea NOTE XX ; Start 06/30/16 at 09:30 Atorvastatin Calcium (Lipitor) 80 mg DAILY PO Last administered on 07/14/16 09: 50; Admin Dose 80 MG; Start 06/30/16 at 09:30 Amiodarone HCl (Cordarone) 400 mg BID PO Last administered on 07/14/16 20:04; Admin Dose 400 MG; Start 07/01/16 at 11:00 Furosemide (Lasix) 40 mg Q8H IV Last administered on 07/14/16 20:04; Admin Dose 40 MG; Start 07/03/16 at 21:00 Morphine Sulfate (morphine) 2 mg Q2H PRN IV FOR NON CARDIAC PAIN (4-10) Last administered on 07/11/16 08:36; Admin Dose 2 MG; Start 07/06/16 at 10:30 Ondansetron HCl (Zofran Inj) 4 mg Q4H PRN IV NAUSEA AND/OR VOMITING; Start at 10:30 Potassium Chloride (Potassium Chloride Pwd/Soln) 40 meq DAILY GTB Last administered on 07/14/16 09:49; Admin Dose 40 MEQ; Start 07/07/16 at 15:00 Guaifenesin (Robitussin Liquid Cup) 200 mg Q4H PRN PO COUGH Last administered on 07/12/16 17:16; Admin Dose 200 MG; Start 07/10/16 at 11:30 Phenol (Cepastat Lozenge) 1 lozenge Q1H PRN MT COUGH; Start 07/10/16 at 11:30 Lorazepam (Ativan) 1 mg Q4H PRN IV AGITATION; Start 07/11/16 at 13:00 Lisinopril (Zestril) 2.5 mg DAILY PO Last administered on 07/13/16 08:14; Admin Dose 2.5 MG; Start 07/12/16 at 09:00 Nystatin (Nystatin Susp) 5 ml QID PO Last administered on 07/14/16 20:04; Admin Dose 5 ML; Start 07/12/16 at 13:00 Haloperidol (Haldol) 1 mg BID PO Last administered on 07/14/16 20:03; Admin Dose 1 MG; Start 07/14/16 at 10:00 Aspirin (Ecotrin) 325 mg DAILY PO ; Start 07/16/16 at 09:00 Clopidogrel Bisulfate (plaVIX) 75 mg DAILY PO ; Start 07/16/16 at 09:00 Acetaminophen (Tylenol Tab) 650 mg Q4H PRN PO NON-CARDIAC PAIN LEVEL 1-3; Start 07/15/16 at 11:30 Oxycodone/ Acetaminophen (Percocet (5/ 325)) 1 tab Q4H PRN PO REPORTED NON- CARDIAC PAIN 4-7; Start 07/15/16 at 11:30 Morphine Sulfate (morphine) 1 mg Q1H PRN IV PAIN NOT RELIEVED BY OTHERS Last administered on 07/15/16 12:41; Admin Dose 1 MG; Start 07/15/16 at 11:30 Al Hydrox/Mg Hydrox/ Simethicone 30 ml 30 ml Q4H PRN PO GASTROINTESTINAL UPSET ; Start 07/15/16 at 11:30 Sodium Chloride (NS) 1,000 ml @ 75 mls/hr [id number] IV Last administered on t 11:50; Admin Dose 75 MLS/HR; Start 07/15/16 at 11:15; Stop 07/16/16 at 00:34 CHRISTINA JOSEPH July 15, 2016 14:39
[2016-07-15] MEDS: HEPARIN 25000 UNITS/250 ML 250 ML IV SCH (16:18)
--- NOTE | 2016-07-15 16:42 | RADRPT ---
Vent Rate: 78 bpm RR Interval: 0 msec OR Interval: 182 msec QRS Duration: 88 msec QT Interval: 418 msec QTC Interval: 476 msec P-R-T Gilbert: 41 - 39 - 75 degrees Normal sinus rhythm Nonspecific T wave abnormality Prolonged QT Abnormal ECG Electronically Signed By: Willis Chow [id number]
[2016-07-15 22:25] LABS: INR 1.02; PROTIME 13.4 Sec (12.2-14.2)
[2016-07-15 22:26] LABS: PARTIAL THROMBOPLASTIN TIME 38.3 Sec (25.0-35.0)
[2016-07-16] VITALS (62 sets, daily range): BP systolic 84–115; BP diastolic 40–96; PULSE 61–85; RESP 14–26
[2016-07-16] MEDS: SOD CHLORIDE 0.9% 1,000 ML IV SCH (00:41)
[2016-07-16 05:07] LABS: ADD SCAN DIFF NO
[2016-07-16 05:11] LABS: BASOPHIL # 0.1 10^3/ul (0.0-0.1); BASOPHILS % 0.8 % (0.0-2.0); EOSINOPHILS # 0.2 10^3/ul (0.0-0.5); EOSINOPHILS % 1.6 % (0.0-7.0); HEMATOCRIT 32.1 % (42.0-52.0); HEMOGLOBIN 10.5 g/dl (14.0-18.0); LYMPHOCYTES # 1.9 10^3/ul (0.8-2.9); LYMPHOCYTES % 20.3 % (15.0-51.0); MEAN CORPUSCULAR HEMOGLOBIN 30.5 pg (29.0-33.0); MEAN CORPUSCULAR HGB CONC 32.7 g/dl (32.0-37.0); MEAN CORPUSCULAR VOLUME 93.3 fl (82.0-101.0); MEAN PLATELET VOLUME 8.9 fl (7.4-10.4); MONOCYTES % 11.1 % (0.0-11.0); NEUTROPHIL # 5.9 10^3/ul (1.6-7.5); NEUTROPHILS % 64.8 % (39.0-77.0); PLATELET COUNT 412 10^3/UL (140-415); RED BLOOD COUNT 3.44 10^6/ul (4.70-6.10); RED CELL DISTRIBUTION WIDTH 13.2 % (11.5-14.5); WHITE BLOOD COUNT 9.1 10^3/ul (4.8-10.8)
[2016-07-16 05:39] LABS: POTASSIUM 4.2 mmol/L (3.5-5.1)
[2016-07-16 05:41] LABS: CREATININE 0.92 mg/dl (0.61-1.24)
[2016-07-16 05:42] LABS: CALCIUM 8.7 mg/dl (8.4-10.2)
[2016-07-16] MEDS: morphine 2 MG INJ IV PRN (05:53)
[2016-07-16] MEDS: FUROSEMIDE 40 MG INJ IV SCH ×2 (05:54→18:37)
--- NOTE | 2016-07-16 08:33 | PN ---
Date/Time of Note Date/Time of Note DATE: 07/16/16 TIME: 08:28 Assessment/Plan VTE Prophylaxis VTE Prophylaxis Intervention: heparin Lines/Catheters IV Catheter Type (from Nrs): Central Line Central line still needed: Yes Urinary Cath still in place: No Assessment/Plan Assessment/Plan 1. Status post ventricular fibrillation cardiac arrest with ROSC - s/p hypothermia protocol. - s/p LHC with multivessel ds found. 2. S/p NSTEMI 2/2 severe multivessel CAD S/p PCI with stent placement x1 to proximal ostial left anterior descending and x1 to proximal portion of the circumflex for chronic total occlusion 07/15/16 Now with balloon pump currently undergoing weaning 3. Vent dependent respiratory failure secondary to cardiac arrest - s/p extubation 4. Shock likely septic with a cardiogenic component -resolved 5. Severe systolic dysfunction with EF of 15 to 20% 6. Pulmonary edema - resolved 7. Bilateral pneumonia, possibly from aspiration - resolved - resp cultures 07/09: amadou 8. Chronic Tobacco user 10. Acute kidney injury, resolved. 11. Hyperglycemia : A1C 5.7: resolved - ISS 12. Diarrhea - Cdiff neg PLAN: * Balloon pump weaning versus d/c today per cardiology * Continue heparin drip * continue supportive ICU care CC time > 35mins Subjective 24 Hr Interval Summary Free Text/Dictation Patient reports feeling well. Wants to know what time the banking supervisor will calm and discontinued the balloon pump. Denies any chest pain. Exam/Review of Systems Vital Signs Vitals Vital Signs Date Time Temp Pulse Resp B/P Pulse Ox O2 Delivery O2 Flow Rate FiO2 07/16/16 07:00 70 23 112/62 99 07/16/16 05:45 Room Air 07/16/16 04:00 98.3 07/15/16 12:00 2.0 Intake and Output 07/15/16 07/15/16 07/16/16 14:59 22:59 06:59 Intake Total 400 ml 1022.6 ml 413.0 ml Output Total 975 ml 200 ml Balance 400 ml 47.6 ml 213.0 ml Exam Constitutional: alert, oriented, No distress Psych: nl mood/affect Head: normocephalic Eyes: PERRL ENMT: mucosa pink and moist Neck: non-tender, supple Respiratory: clear to auscultation Cardiovascular: regular rate and rhythm Gastrointestinal: bowel sounds, non-tender, soft Genitourinary - Male: other (Ballon pump cathether in L groin, Cath site in R vasyl, both clean and non oozing) Extremities: No edema Neurological: nl mental status Results Result Diagram: 07/16/16 0430 07/16/16 0430 Results 24 hrs Laboratory Tests Test 07/15/16 08:45 07/15/16 21:59 07/16/16 04:30 07/16/16 06:00 White Blood Count 12.8 H 9.1 # Red Blood Count 4.10 L 3.44 L Hemoglobin 12.8 L 10.5 L Hematocrit 37.7 L 32.1 L Mean Corpuscular Volume 92.0 93.3 Mean Corpuscular Hemoglobin 31.2 30.5 Mean Corpuscular Hemoglobin Concent 34.0 32.7 Red Cell Distribution Width 12.9 13.2 Platelet Count 620 H 412 # Mean Platelet Volume 8.8 8.9 Neutrophils % 58.8 64.8 Lymphocytes % 27.3 20.3 Monocytes % 8.2 11.1 H Eosinophils % 1.5 1.6 Basophils % 1.6 0.8 Nucleated Red Blood Cells % 0.0 0.0 Neutrophils # 7.6 H 5.9 Lymphocytes # 3.5 H 1.9 Monocytes # 1.1 H 1.0 H Eosinophils # 0.2 0.2 Basophils # 0.2 H 0.1 Nucleated Red Blood Cells # 0.0 0.0 Sodium Level 136 140 Potassium Level 5.0 4.2 Chloride Level 100 101 Carbon Dioxide Level 23 26 Anion Gap 18 H 17 H Blood Urea Nitrogen 41 H 32 H Creatinine 1.05 0.92 Glucose Level 112 108 Calcium Level 10.0 8.7 Prothrombin Time 13.4 Prothrombin Time Ratio 1.0 INR International Normalized Ratio 1.02 Activated Partial Thromboplast Time 38.3 H 106.2 *H Medications Medications Current Medications Famotidine (Pepcid Iv) 20 mg Q12 IV Last administered on 07/15/16 21:24; Admin Dose 20 MG; Start 06/28/16 at 21:00 Meperidine HCl (Demerol) 25 mg Q4H PRN IV shivering post hypothermia pro Last administered on 06/29/16 14:44; Admin Dose 25 MG; Start 06/29/16 at 14:30 Dicyclomine HCl (Bentyl) 20 mg Q6H PRN NGT Hiccups Last administered on 09:54; Admin Dose 20 MG; Start 06/30/16 at 06:30 Miscellaneous Information 1 ea NOTE XX ; Start 06/30/16 at 09:30 Atorvastatin Calcium (Lipitor) 80 mg DAILY PO Last administered on 07/14/16 09: 50; Admin Dose 80 MG; Start 06/30/16 at 09:30 Amiodarone HCl (Cordarone) 400 mg BID PO Last administered on 07/15/16 21:03; Admin Dose 400 MG; Start 07/01/16 at 11:00 Morphine Sulfate (morphine) 2 mg Q2H PRN IV FOR NON CARDIAC PAIN (4-10) Last administered on 07/16/16 05:53; Admin Dose 2 MG; Start 07/06/16 at 10:30 Ondansetron HCl (Zofran Inj) 4 mg Q4H PRN IV NAUSEA AND/OR VOMITING; Start at 10:30 Potassium Chloride (Potassium Chloride Pwd/Soln) 40 meq DAILY GTB Last administered on 07/14/16 09:49; Admin Dose 40 MEQ; Start 07/07/16 at 15:00 Guaifenesin (Robitussin Liquid Cup) 200 mg Q4H PRN PO COUGH Last administered on 07/12/16 17:16; Admin Dose 200 MG; Start 07/10/16 at 11:30 Phenol (Cepastat Lozenge) 1 lozenge Q1H PRN MT COUGH; Start 07/10/16 at 11:30 Lorazepam (Ativan) 1 mg Q4H PRN IV AGITATION; Start 07/11/16 at 13:00 Lisinopril (Zestril) 2.5 mg DAILY PO Last administered on 07/13/16 08:14; Admin Dose 2.5 MG; Start 07/12/16 at 09:00 Nystatin (Nystatin Susp) 5 ml QID PO Last administered on 07/15/16 21:03; Admin Dose 5 ML; Start 07/12/16 at 13:00 Haloperidol (Haldol) 1 mg BID PO Last administered on 07/15/16 21:03; Admin Dose 1 MG; Start 07/14/16 at 10:00 Aspirin (Ecotrin) 325 mg DAILY PO ; Start 07/16/16 at 09:00 Clopidogrel Bisulfate (plaVIX) 75 mg DAILY PO ; Start 07/16/16 at 09:00 Acetaminophen (Tylenol Tab) 650 mg Q4H PRN PO NON-CARDIAC PAIN LEVEL 1-3; Start 07/15/16 at 11:30 Oxycodone/ Acetaminophen (Percocet (5/ 325)) 1 tab Q4H PRN PO REPORTED NON- CARDIAC PAIN 4-7 Last administered on 07/15/16 19:56; Admin Dose 1 TAB; Start at 11:30 Morphine Sulfate (morphine) 1 mg Q1H PRN IV PAIN NOT RELIEVED BY OTHERS Last administered on 07/15/16 12:41; Admin Dose 1 MG; Start 07/15/16 at 11:30 Al Hydrox/Mg Hydrox/Simethicone (Mag-Al Plus) 30 ml Q4H PRN PO GASTROINTESTINAL UPSET; Start 07/15/16 at 11:30 CHRISTINA JOSEPH July 16, 2016 08:33
[2016-07-16 08:35] LABS: INR 1.03; PROTIME 13.5 Sec (12.2-14.2); PT RATIO 1.1
[2016-07-16] MEDS: LISINOPRIL 5 MG TAB PO SCH (09:00)
--- NOTE | 2016-07-16 09:22 | CONS ---
Date/Time of Note Date/Time of Note DATE: 07/16/16 TIME: 09:21 Consult Date/Type/Reason Admit Date/Time Jun 28, 2016 at 20:48 Initial Consult Date 06/29/16 Type of Consultation: Pulmonary ICU Ordering Provider: CHRISTINA JOSEPH Patient underwent cardiac catheterization yesterday with subsequent intervention and reperfusion. Placed on intra-aortic balloon pump transferred to intensive care unit where he has been stable overnight and this morning. Patient remains awake alert and oriented with intra-aortic balloon pump one-to- one. Objective Vital Signs Date Time Temp Pulse Resp B/P Pulse Ox O2 Delivery O2 Flow Rate FiO2 07/16/16 09:00 75 21 101/71 98 Room Air 07/16/16 08:00 98.1 07/15/16 12:00 2.0 Intake and Output 07/15/16 07/15/16 07/16/16 15:00 23:00 07:00 Intake Total 575 ml 932.6 ml 328.0 ml Output Total 975 ml 200 ml Balance 575 ml -42.4 ml 128.0 ml Exam PHYSICAL EXAMINATION GENERAL: Young gentleman on nasal cannula oxygen VITAL SIGNS: see below. HEENT: Pupils equal, round, and reactive to light. CARDIAC: S1, S2, 2/6 systolic ejection murmur CHEST: Diminished air entry bilaterally. ABDOMEN: Mildly distended. Bowel sounds present no guarding or rebound. EXTREMITIES: No cyanosis, clubbing or edema. NEUROLOGIC: No focal deficits Results/Medications Result Diagram: 07/16/16 0430 07/16/16 0430 Results 24 hrs Laboratory Tests Test 07/15/16 21:59 07/16/16 04:30 07/16/16 06:00 07/16/16 08:10 Prothrombin Time 13.4 13.5 Prothrombin Time Ratio 1.0 1.1 INR International Normalized Ratio 1.02 1.03 Activated Partial Thromboplast Time 38.3 H 106.2 *H Pending White Blood Count 9.1 # Red Blood Count 3.44 L Hemoglobin 10.5 L Hematocrit 32.1 L Mean Corpuscular Volume 93.3 Mean Corpuscular Hemoglobin 30.5 Mean Corpuscular Hemoglobin Concent 32.7 Red Cell Distribution Width 13.2 Platelet Count 412 # Mean Platelet Volume 8.9 Neutrophils % 64.8 Lymphocytes % 20.3 Monocytes % 11.1 H Eosinophils % 1.6 Basophils % 0.8 Nucleated Red Blood Cells % 0.0 Neutrophils # 5.9 Lymphocytes # 1.9 Monocytes # 1.0 H Eosinophils # 0.2 Basophils # 0.1 Nucleated Red Blood Cells # 0.0 Sodium Level 140 Potassium Level 4.2 Chloride Level 101 Carbon Dioxide Level 26 Anion Gap 17 H Blood Urea Nitrogen 32 H Creatinine 0.92 Glucose Level 108 Calcium Level 8.7 Medications Current Medications Famotidine (Pepcid Iv) 20 mg Q12 IV Last administered on 07/15/16 21:24; Admin Dose 20 MG; Start 06/28/16 at 21:00 Meperidine HCl (Demerol) 25 mg Q4H PRN IV shivering post hypothermia pro Last administered on 06/29/16 14:44; Admin Dose 25 MG; Start 06/29/16 at 14:30 Dicyclomine HCl (Bentyl) 20 mg Q6H PRN NGT Hiccups Last administered on 09:54; Admin Dose 20 MG; Start 06/30/16 at 06:30 Miscellaneous Information 1 ea NOTE XX ; Start 06/30/16 at 09:30 Atorvastatin Calcium (Lipitor) 80 mg DAILY PO Last administered on 07/14/16 09: 50; Admin Dose 80 MG; Start 06/30/16 at 09:30 Amiodarone HCl (Cordarone) 400 mg BID PO Last administered on 07/15/16 21:03; Admin Dose 400 MG; Start 07/01/16 at 11:00 Morphine Sulfate (morphine) 2 mg Q2H PRN IV FOR NON CARDIAC PAIN (4-10) Last administered on 07/16/16 05:53; Admin Dose 2 MG; Start 07/06/16 at 10:30 Ondansetron HCl (Zofran Inj) 4 mg Q4H PRN IV NAUSEA AND/OR VOMITING; Start at 10:30 Potassium Chloride (Potassium Chloride Pwd/Soln) 40 meq DAILY GTB Last administered on 07/14/16 09:49; Admin Dose 40 MEQ; Start 07/07/16 at 15:00 Guaifenesin (Robitussin Liquid Cup) 200 mg Q4H PRN PO COUGH Last administered on 07/12/16 17:16; Admin Dose 200 MG; Start 07/10/16 at 11:30 Phenol (Cepastat Lozenge) 1 lozenge Q1H PRN MT COUGH; Start 07/10/16 at 11:30 Lorazepam (Ativan) 1 mg Q4H PRN IV AGITATION; Start 07/11/16 at 13:00 Lisinopril (Zestril) 2.5 mg DAILY PO Last administered on 07/13/16 08:14; Admin Dose 2.5 MG; Start 07/12/16 at 09:00 Nystatin (Nystatin Susp) 5 ml QID PO Last administered on 07/15/16 21:03; Admin Dose 5 ML; Start 07/12/16 at 13:00 Haloperidol (Haldol) 1 mg BID PO Last administered on 07/15/16 21:03; Admin Dose 1 MG; Start 07/14/16 at 10:00 Aspirin (Ecotrin) 325 mg DAILY PO ; Start 07/16/16 at 09:00 Clopidogrel Bisulfate (plaVIX) 75 mg DAILY PO ; Start 07/16/16 at 09:00 Acetaminophen (Tylenol Tab) 650 mg Q4H PRN PO NON-CARDIAC PAIN LEVEL 1-3; Start 07/15/16 at 11:30 Oxycodone/ Acetaminophen (Percocet (5/ 325)) 1 tab Q4H PRN PO REPORTED NON- CARDIAC PAIN 4-7 Last administered on 07/15/16 19:56; Admin Dose 1 TAB; Start at 11:30 Morphine Sulfate (morphine) 1 mg Q1H PRN IV PAIN NOT RELIEVED BY OTHERS Last administered on 07/15/16 12:41; Admin Dose 1 MG; Start 07/15/16 at 11:30 Al Hydrox/Mg Hydrox/Simethicone (Mag-Al Plus) 30 ml Q4H PRN PO GASTROINTESTINAL UPSET; Start 07/15/16 at 11:30 Assessment/Plan Chief Complaint/Hosp Course Assessment 1. Cardiopulmonary arrest. Ventricular arrhythmia following spontaneous return of circulation. Ejection fraction 15% cardiogenic shock with elevated troponins cardiac catheterization shows multivessel coronary artery disease. Status post PCI now with intra-aortic balloon pump in place. 2. Hypoxemic respiratory failure evidence of pulmonary edema on chest x-ray now safely extubated 3. Possible aspiration pneumonia 4. Resolving sepsis 5. Hypokalemia Plan 1. Continue cardiology recommendations anticipate removal of intra-aortic balloon pump today 2. Diuresis with tolerated 3. Supplemental O2 and incentive spirometry 4. Broad-spectrum antibiotics for underlying sepsis 5. DVT and GI prophylaxis Disposition Continue ICU care Problems: ELIZAB[facility] STERN MD, [facility] July 16, 2016 09:22
[2016-07-16 09:32] LABS: PARTIAL THROMBOPLASTIN TIME 79.6 Sec (25.0-35.0)
[2016-07-16] MEDS: FAMOTIDINE 20 MG INJ IV SCH ×2 (09:42→21:29)
[2016-07-16] MEDS: HALOPERIDOL 1 MG TAB PO SCH ×2 (09:42→21:29)
[2016-07-16] MEDS: ASPIRIN (EC) 325 MG TAB PO SCH (09:42)
[2016-07-16] MEDS: AMIODARONE 200 MG TAB PO SCH ×2 (09:43→21:29)
[2016-07-16] MEDS: CLOPIDOGREL 75 MG TAB PO SCH (09:43)
[2016-07-16] MEDS: ATORVASTATIN 80 MG TAB PO SCH (09:43)
[2016-07-16] MEDS: NYSTATIN SUSP 5 ML CUP PO SCH ×4 (09:44→21:29)
[2016-07-16] MEDS: POTASSIUM CHLORIDE 20 MEQ POWDER FOR ORAL SOLN GTB SCH (09:44)
--- NOTE | 2016-07-16 11:13 | CONS ---
Date/Time of Note Date/Time of Note DATE: 07/16/16 TIME: 11:09 Assessment/Plan Assessment/Plan Additional Assessment/Plan 1. Positive troponin, consistent with a non-ST elevation myocardial infarction. -Peaked at 40 and now downtrending significantly. Now post-op s/p diagnostic C 07/06 with 3vd 100% RCA/LCX both seen via collateral flow and 90-95% prox LAD. Now POD#0 s/p PTCA/stent x LAD x 1 to LCX with PTCA/stent - DOING well, plan to d/c IABP. 2. Status post cardiac arrest- better now. 3. Cardiomyopathy, with a severely depressed left ventricular ejection fraction of approximately 15% to 20% by echo on this admission. s/p repeat Echo 07/06 limited EF now 25-30% -outpt ICD eval. 4. Respiratory failure. Status post intubation. 5. Ventricular fibrillation arrest, witnessed, status post defibrillator x1- now s/p PCI, no indiaction for ICD pre-45 days 6. Encephalopathy. 7. Leukocytosis. 8. Anemia. 9. Hypotension-now improved- better now 10.Fevers Consultation Date/Type/Reason Admit Date/Time Jun 28, 2016 at 20:48 Initial Consult Date 06/29/16 Type of Consultation: Pulmonary ICU Referring Provider: CHRISTINA JOSEPH 24 HR Interval Summary Free Text/Dictation NO acute events - BP stable - in good fluid status now - IABP with good output. ROS: No fever, no chills, no nausea, no vomiting, no diarrhea/constipation No recent weight changes No chest pain, no PND, no orthopnea No dizziness, blurred vision No thirst, no heat or cold intolerance Exam/Review of Systems Vital Signs Vitals Vital Signs Date Time Temp Pulse Resp B/P Pulse Ox O2 Delivery O2 Flow Rate FiO2 07/16/16 09:00 75 21 101/71 98 Room Air 07/16/16 08:00 98.1 07/15/16 12:00 2.0 Intake and Output 07/15/16 07/15/16 07/16/16 15:00 23:00 07:00 Intake Total 575 ml 932.6 ml 340.5 ml Output Total 975 ml 200 ml Balance 575 ml -42.4 ml 140.5 ml Exam General: WN/WD/NAD, AOx 3 HEENT: Unicetric/atraumatic/EOMI (follows commands) NECK: JVD elevated, no thyromegaly Lymph: no lymphadenopathy HEART: regular with no S3, II/ systolic murmur at apex LUNGS: Coarse sounds ABD: soft, NT, ND, +BS : Intact Neuro: non focal SKIN: chronic changes EXT: trace edema, IABP Results Result Diagram: 07/16/16 0430 07/16/16 0430 Results 24 hrs Laboratory Tests Test 07/15/16 21:59 07/16/16 04:30 07/16/16 06:00 07/16/16 08:10 Prothrombin Time 13.4 13.5 Prothrombin Time Ratio 1.0 1.1 INR International Normalized Ratio 1.02 1.03 Activated Partial Thromboplast Time 38.3 H 106.2 *H 79.6 *H White Blood Count 9.1 # Red Blood Count 3.44 L Hemoglobin 10.5 L Hematocrit 32.1 L Mean Corpuscular Volume 93.3 Mean Corpuscular Hemoglobin 30.5 Mean Corpuscular Hemoglobin Concent 32.7 Red Cell Distribution Width 13.2 Platelet Count 412 # Mean Platelet Volume 8.9 Neutrophils % 64.8 Lymphocytes % 20.3 Monocytes % 11.1 H Eosinophils % 1.6 Basophils % 0.8 Nucleated Red Blood Cells % 0.0 Neutrophils # 5.9 Lymphocytes # 1.9 Monocytes # 1.0 H Eosinophils # 0.2 Basophils # 0.1 Nucleated Red Blood Cells # 0.0 Sodium Level 140 Potassium Level 4.2 Chloride Level 101 Carbon Dioxide Level 26 Anion Gap 17 H Blood Urea Nitrogen 32 H Creatinine 0.92 Glucose Level 108 Calcium Level 8.7 Medications Medications Current Medications Famotidine (Pepcid Iv) 20 mg Q12 IV Last administered on 07/16/16 09:42; Admin Dose 20 MG; Start 06/28/16 at 21:00 Meperidine HCl (Demerol) 25 mg Q4H PRN IV shivering post hypothermia pro Last administered on 06/29/16 14:44; Admin Dose 25 MG; Start 06/29/16 at 14:30 Dicyclomine HCl (Bentyl) 20 mg Q6H PRN NGT Hiccups Last administered on 09:54; Admin Dose 20 MG; Start 06/30/16 at 06:30 Miscellaneous Information 1 ea NOTE XX ; Start 06/30/16 at 09:30 Atorvastatin Calcium (Lipitor) 80 mg DAILY PO Last administered on 07/16/16 09: 43; Admin Dose 80 MG; Start 06/30/16 at 09:30 Amiodarone HCl (Cordarone) 400 mg BID PO Last administered on 07/16/16 09:43; Admin Dose 400 MG; Start 07/01/16 at 11:00 Morphine Sulfate (morphine) 2 mg Q2H PRN IV FOR NON CARDIAC PAIN (4-10) Last administered on 07/16/16 05:53; Admin Dose 2 MG; Start 07/06/16 at 10:30 Ondansetron HCl (Zofran Inj) 4 mg Q4H PRN IV NAUSEA AND/OR VOMITING; Start at 10:30 Potassium Chloride (Potassium Chloride Pwd/Soln) 40 meq DAILY GTB Last administered on 07/16/16 09:44; Admin Dose 40 MEQ; Start 07/07/16 at 15:00 Guaifenesin (Robitussin Liquid Cup) 200 mg Q4H PRN PO COUGH Last administered on 07/12/16 17:16; Admin Dose 200 MG; Start 07/10/16 at 11:30 Phenol (Cepastat Lozenge) 1 lozenge Q1H PRN MT COUGH; Start 07/10/16 at 11:30 Lorazepam (Ativan) 1 mg Q4H PRN IV AGITATION; Start 07/11/16 at 13:00 Lisinopril (Zestril) 2.5 mg DAILY PO Last administered on 07/13/16 08:14; Admin Dose 2.5 MG; Start 07/12/16 at 09:00 Nystatin (Nystatin Susp) 5 ml QID PO Last administered on 07/16/16 09:44; Admin Dose 5 ML; Start 07/12/16 at 13:00 Haloperidol (Haldol) 1 mg BID PO Last administered on 07/16/16 09:42; Admin Dose 1 MG; Start 07/14/16 at 10:00 Aspirin (Ecotrin) 325 mg DAILY PO Last administered on 07/16/16 09:42; Admin Dose 325 MG; Start 07/16/16 at 09:00 Clopidogrel Bisulfate (plaVIX) 75 mg DAILY PO Last administered on 07/16/16 09: 43; Admin Dose 75 MG; Start 07/16/16 at 09:00 Acetaminophen (Tylenol Tab) 650 mg Q4H PRN PO NON-CARDIAC PAIN LEVEL 1-3; Start 07/15/16 at 11:30 Oxycodone/ Acetaminophen (Percocet (5/ 325)) 1 tab Q4H PRN PO REPORTED NON- CARDIAC PAIN 4-7 Last administered on 07/15/16 19:56; Admin Dose 1 TAB; Start at 11:30 Morphine Sulfate (morphine) 1 mg Q1H PRN IV PAIN NOT RELIEVED BY OTHERS Last administered on 07/15/16 12:41; Admin Dose 1 MG; Start 07/15/16 at 11:30 Al Hydrox/Mg Hydrox/Simethicone (Mag-Al Plus) 30 ml Q4H PRN PO GASTROINTESTINAL UPSET; Start 07/15/16 at 11:30 JANICE HARKINS MD July 16, 2016 11:13
--- NOTE | 2016-07-16 13:06 | CONS ---
Date/Time of Note Date/Time of Note DATE: 07/16/16 TIME: 13:05 Assessment/Plan Assessment/Plan Chief Complaint/Hosp Course SUBJECTIVE: No events overnight. Sleeping, looks comfortable. INDWELLINGS: Right IJ triple-lumen catheter, L fem Balloon pump. PHYSICAL EXAMINATION: GENERAL: This is well-developed, middle-aged man who is awake, in no distress. HEENT: Head atraumatic, normocephalic. Sclerae anicteric. Buccal mucosa dry. NECK: Supple, trachea midline. CHEST: Rise symmetrical. Breath sounds clear, diminished to bases. HEART: S1, S2. ABDOMEN: Soft. Bowel sounds present. EXTREMITIES: No cyanosis. ASSESSMENT: 1. Systemic inflammatory response syndrome with resolving leukocytosis. 2. S/p resp failure/pneumonia/pulmonary edema. 3. Status post cardiopulmonary arrest and cardiogenic shock. 4. Non-ST elevation myocardial infarction==> s/p Left heart catheterization, placement of intra-aortic balloon pump to left femoral artery, PTCA. PLAN: The patient remains stable. Continue present care, card rec-s, gomez cx prn DW staff Problems: Consultation Date/Type/Reason Admit Date/Time Jun 28, 2016 at 20:48 Initial Consult Date 06/29/16 Type of Consultation: ID Referring Provider: CHRISTINA JOSEPH Exam/Review of Systems Vital Signs Vitals Vital Signs Date Time Temp Pulse Resp B/P Pulse Ox O2 Delivery O2 Flow Rate FiO2 07/16/16 12:00 71 07/16/16 09:00 21 101/71 98 Room Air 07/16/16 08:00 98.1 07/15/16 12:00 2.0 Intake and Output 07/15/16 07/15/16 07/16/16 15:00 23:00 07:00 Intake Total 575 ml 932.6 ml 340.5 ml Output Total 975 ml 200 ml Balance 575 ml -42.4 ml 140.5 ml Results Result Diagram: 07/16/16 0430 07/16/16 0430 Results 24 hrs Laboratory Tests Test 07/15/16 21:59 07/16/16 04:30 07/16/16 06:00 07/16/16 08:10 Prothrombin Time 13.4 13.5 Prothrombin Time Ratio 1.0 1.1 INR International Normalized Ratio 1.02 1.03 Activated Partial Thromboplast Time 38.3 H 106.2 *H 79.6 *H White Blood Count 9.1 # Red Blood Count 3.44 L Hemoglobin 10.5 L Hematocrit 32.1 L Mean Corpuscular Volume 93.3 Mean Corpuscular Hemoglobin 30.5 Mean Corpuscular Hemoglobin Concent 32.7 Red Cell Distribution Width 13.2 Platelet Count 412 # Mean Platelet Volume 8.9 Neutrophils % 64.8 Lymphocytes % 20.3 Monocytes % 11.1 H Eosinophils % 1.6 Basophils % 0.8 Nucleated Red Blood Cells % 0.0 Neutrophils # 5.9 Lymphocytes # 1.9 Monocytes # 1.0 H Eosinophils # 0.2 Basophils # 0.1 Nucleated Red Blood Cells # 0.0 Sodium Level 140 Potassium Level 4.2 Chloride Level 101 Carbon Dioxide Level 26 Anion Gap 17 H Blood Urea Nitrogen 32 H Creatinine 0.92 Glucose Level 108 Calcium Level 8.7 Medications Medications Current Medications Famotidine (Pepcid Iv) 20 mg Q12 IV Last administered on 07/16/16 09:42; Admin Dose 20 MG; Start 06/28/16 at 21:00 Meperidine HCl (Demerol) 25 mg Q4H PRN IV shivering post hypothermia pro Last administered on 06/29/16 14:44; Admin Dose 25 MG; Start 06/29/16 at 14:30 Dicyclomine HCl (Bentyl) 20 mg Q6H PRN NGT Hiccups Last administered on 09:54; Admin Dose 20 MG; Start 06/30/16 at 06:30 Miscellaneous Information 1 ea NOTE XX ; Start 06/30/16 at 09:30 Atorvastatin Calcium (Lipitor) 80 mg DAILY PO Last administered on 07/16/16 09: 43; Admin Dose 80 MG; Start 06/30/16 at 09:30 Amiodarone HCl (Cordarone) 400 mg BID PO Last administered on 07/16/16 09:43; Admin Dose 400 MG; Start 07/01/16 at 11:00 Morphine Sulfate (morphine) 2 mg Q2H PRN IV FOR NON CARDIAC PAIN (4-10) Last administered on 07/16/16 05:53; Admin Dose 2 MG; Start 07/06/16 at 10:30 Ondansetron HCl (Zofran Inj) 4 mg Q4H PRN IV NAUSEA AND/OR VOMITING; Start at 10:30 Potassium Chloride (Potassium Chloride Pwd/Soln) 40 meq DAILY GTB Last administered on 07/16/16 09:44; Admin Dose 40 MEQ; Start 07/07/16 at 15:00 Guaifenesin (Robitussin Liquid Cup) 200 mg Q4H PRN PO COUGH Last administered on 07/12/16 17:16; Admin Dose 200 MG; Start 07/10/16 at 11:30 Phenol (Cepastat Lozenge) 1 lozenge Q1H PRN MT COUGH; Start 07/10/16 at 11:30 Lorazepam (Ativan) 1 mg Q4H PRN IV AGITATION; Start 07/11/16 at 13:00 Lisinopril (Zestril) 2.5 mg DAILY PO Last administered on 07/13/16 08:14; Admin Dose 2.5 MG; Start 07/12/16 at 09:00 Nystatin (Nystatin Susp) 5 ml QID PO Last administered on 07/16/16 09:44; Admin Dose 5 ML; Start 07/12/16 at 13:00 Haloperidol (Haldol) 1 mg BID PO Last administered on 07/16/16 09:42; Admin Dose 1 MG; Start 07/14/16 at 10:00 Aspirin (Ecotrin) 325 mg DAILY PO Last administered on 07/16/16 09:42; Admin Dose 325 MG; Start 07/16/16 at 09:00 Clopidogrel Bisulfate (plaVIX) 75 mg DAILY PO Last administered on 07/16/16 09: 43; Admin Dose 75 MG; Start 07/16/16 at 09:00 Acetaminophen (Tylenol Tab) 650 mg Q4H PRN PO NON-CARDIAC PAIN LEVEL 1-3; Start 07/15/16 at 11:30 Oxycodone/ Acetaminophen (Percocet (5/ 325)) 1 tab Q4H PRN PO REPORTED NON- CARDIAC PAIN 4-7 Last administered on 07/15/16 19:56; Admin Dose 1 TAB; Start at 11:30 Morphine Sulfate (morphine) 1 mg Q1H PRN IV PAIN NOT RELIEVED BY OTHERS Last administered on 07/15/16 12:41; Admin Dose 1 MG; Start 07/15/16 at 11:30 Al Hydrox/Mg Hydrox/Simethicone (Mag-Al Plus) 30 ml Q4H PRN PO GASTROINTESTINAL UPSET; Start 07/15/16 at 11:30 CAROLINA ISAAC NP July 16, 2016 13:06
[2016-07-16] MEDS: HEPARIN 25000 UNITS/250 ML 250 ML IV SCH (14:17)
[2016-07-16 18:15] LABS: PROTIME 13.2 Sec (12.2-14.2)
[2016-07-16 18:16] LABS: PARTIAL THROMBOPLASTIN TIME 51.8 Sec (25.0-35.0)
[2016-07-17] VITALS (51 sets, daily range): BP systolic 76–118; BP diastolic 46–100; PULSE 61–103; RESP 10–46
[2016-07-17 01:12] LABS: INR 0.96; PROTIME 12.8 Sec (12.2-14.2)
[2016-07-17 01:13] LABS: PARTIAL THROMBOPLASTIN TIME 61.4 Sec (25.0-35.0)
[2016-07-17 04:26] LABS: ADD SCAN DIFF NO
[2016-07-17 04:30] LABS: BASOPHIL # 0.1 10^3/ul (0.0-0.1); BASOPHILS % 1.1 % (0.0-2.0); EOSINOPHILS # 0.3 10^3/ul (0.0-0.5); EOSINOPHILS % 2.8 % (0.0-7.0); HEMATOCRIT 30.4 % (42.0-52.0); LYMPHOCYTES # 2.1 10^3/ul (0.8-2.9); LYMPHOCYTES % 23.2 % (15.0-51.0); MEAN CORPUSCULAR HEMOGLOBIN 30.4 pg (29.0-33.0); MEAN CORPUSCULAR HGB CONC 32.9 g/dl (32.0-37.0); MEAN CORPUSCULAR VOLUME 92.4 fl (82.0-101.0); MONOCYTE # 1.1 10^3/ul (0.3-0.9); MONOCYTES % 12.3 % (0.0-11.0); NEUTROPHIL # 5.4 10^3/ul (1.6-7.5); NEUTROPHILS % 59.5 % (39.0-77.0); PLATELET COUNT 342 10^3/UL (140-415); RED BLOOD COUNT 3.29 10^6/ul (4.70-6.10); RED CELL DISTRIBUTION WIDTH 13.1 % (11.5-14.5)
[2016-07-17 04:49] LABS: CALCIUM 8.6 mg/dl (8.4-10.2); CREATININE 0.92 mg/dl (0.61-1.24); MAGNESIUM 2.1 mg/dl (1.7-2.5); PHOSPHORUS 4.4 mg/dl (2.5-4.9); POTASSIUM 4.2 mmol/L (3.5-5.1)
[2016-07-17] MEDS: FUROSEMIDE 40 MG INJ IV SCH ×2 (06:34→17:45)
[2016-07-17] MEDS: NYSTATIN SUSP 5 ML CUP PO SCH ×4 (08:45→20:01)
[2016-07-17] MEDS: HALOPERIDOL 1 MG TAB PO SCH ×2 (08:46→19:59)
[2016-07-17] MEDS: AMIODARONE 200 MG TAB PO SCH ×2 (08:46→20:01)
[2016-07-17] MEDS: POTASSIUM CHLORIDE 20 MEQ POWDER FOR ORAL SOLN GTB SCH (08:46)
[2016-07-17] MEDS: ATORVASTATIN 80 MG TAB PO SCH (08:47)
[2016-07-17] MEDS: LISINOPRIL 5 MG TAB PO SCH (08:47)
[2016-07-17] MEDS: FAMOTIDINE 20 MG INJ IV SCH ×2 (08:55→20:00)
--- NOTE | 2016-07-17 09:57 | PN ---
Date/Time of Note Date/Time of Note DATE: 07/17/16 TIME: 09:53 Assessment/Plan VTE Prophylaxis VTE Prophylaxis Intervention: heparin Lines/Catheters IV Catheter Type (from [facility]): Central Line Central line still needed: Yes Urinary Cath still in place: No Assessment/Plan Assessment/Plan 1. Status post ventricular fibrillation cardiac arrest with ROSC * s/p hypothermia protocol. * s/p [facility] 07/06/16 with multivessel ds found. 2. 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 Vent dependent respiratory failure secondary to cardiac arrest - s/p extubation 4. Shock likely septic with a cardiogenic component -resolved 5. Severe systolic dysfunction with EF of 15 to 20% 6. Pulmonary edema - resolved 7. Bilateral pneumonia, possibly from aspiration - resolved - resp cultures 07/09: amadou 8. Chronic Tobacco user 10. Acute kidney injury, resolved. 11. Hyperglycemia : A1C 5.7: resolved - ISS 12. Diarrhea - Cdiff neg PLAN: * Balloon pump removed today by CTS, patient however still on heparin drip * continue Monitoring and supportive ICU care for now, plan for transfer back to [facility] when cleared by Cardio * Also d/c heparin drip when cleared by cardio CC time > 35mins Subjective 24 Hr Interval Summary Free Text/Dictation Patient seen and examined. balloon pump discontinued today Patient is to remain observed in ICU till cleared for transfer by CTS and Cardiology Exam/Review of Systems Vital Signs Vitals Vital Signs Date Time Temp Pulse Resp B/P Pulse Ox O2 Delivery O2 Flow Rate FiO2 07/17/16 08:30 89 21 99/72 99 Room Air 07/17/16 08:00 98.1 07/15/16 12:00 2.0 Intake and Output 07/16/16 07/16/16 07/17/16 15:00 23:00 07:00 Intake Total 595.50 ml 597.25 ml 454 ml Output Total 500 ml 200 ml 400 ml Balance 95.50 ml 397.25 ml 54 ml Exam Constitutional: alert, oriented Eyes: PERRL Respiratory: clear to auscultation Cardiovascular: regular rate and rhythm, No murmurs/extra sounds Gastrointestinal: bowel sounds, non-tender, soft Neurological: lethargic Results Result Diagram: 07/17/16 0415 07/17/16 0415 Results 24 hrs Laboratory Tests Test 07/16/16 17:10 07/17/16 00:29 07/17/16 04:15 Prothrombin Time 13.2 12.8 Prothrombin Time Ratio 1.0 1.0 INR International Normalized Ratio 1.00 0.96 Activated Partial Thromboplast Time 51.8 H 61.4 H 69.0 H White Blood Count 9.0 Red Blood Count 3.29 L Hemoglobin 10.0 L Hematocrit 30.4 L Mean Corpuscular Volume 92.4 Mean Corpuscular Hemoglobin 30.4 Mean Corpuscular Hemoglobin Concent 32.9 Red Cell Distribution Width 13.1 Platelet Count 342 Mean Platelet Volume 9.0 Neutrophils % 59.5 Lymphocytes % 23.2 Monocytes % 12.3 H Eosinophils % 2.8 Basophils % 1.1 Nucleated Red Blood Cells % 0.0 Neutrophils # 5.4 Lymphocytes # 2.1 Monocytes # 1.1 H Eosinophils # 0.3 Basophils # 0.1 Nucleated Red Blood Cells # 0.0 Sodium Level 136 Potassium Level 4.2 Chloride Level 104 Carbon Dioxide Level 25 Anion Gap 11 Blood Urea Nitrogen 26 H Creatinine 0.92 Glucose Level 116 Calcium Level 8.6 Phosphorus Level 4.4 Magnesium Level 2.1 Medications Medications Current Medications Famotidine (Pepcid Iv) 20 mg Q12 IV Last administered on 07/17/16 08:55; Admin Dose 20 MG; Start 06/28/16 at 21:00 Meperidine HCl (Demerol) 25 mg Q4H PRN IV shivering post hypothermia pro Last administered on 06/29/16 14:44; Admin Dose 25 MG; Start 06/29/16 at 14:30 Dicyclomine HCl (Bentyl) 20 mg Q6H PRN NGT Hiccups Last administered on 09:54; Admin Dose 20 MG; Start 06/30/16 at 06:30 Miscellaneous Information 1 ea NOTE XX ; Start 06/30/16 at 09:30 Atorvastatin Calcium (Lipitor) 80 mg DAILY PO Last administered on 07/17/16 08: 47; Admin Dose 80 MG; Start 06/30/16 at 09:30 Amiodarone HCl (Cordarone) 400 mg BID PO Last administered on 07/17/16 08:46; Admin Dose 400 MG; Start 07/01/16 at 11:00 Morphine Sulfate (morphine) 2 mg Q2H PRN IV FOR NON CARDIAC PAIN (4-10) Last administered on 07/16/16 05:53; Admin Dose 2 MG; Start 07/06/16 at 10:30 Ondansetron HCl (Zofran Inj) 4 mg Q4H PRN IV NAUSEA AND/OR VOMITING; Start at 10:30 Potassium Chloride (Potassium Chloride Pwd/Soln) 40 meq DAILY GTB Last administered on 07/17/16 08:46; Admin Dose 40 MEQ; Start 07/07/16 at 15:00 Guaifenesin (Robitussin Liquid Cup) 200 mg Q4H PRN PO COUGH Last administered on 07/12/16 17:16; Admin Dose 200 MG; Start 07/10/16 at 11:30 Phenol (Cepastat Lozenge) 1 lozenge Q1H PRN MT COUGH; Start 07/10/16 at 11:30 Lorazepam (Ativan) 1 mg Q4H PRN IV AGITATION; Start 07/11/16 at 13:00 Lisinopril (Zestril) 2.5 mg DAILY PO Last administered on 07/13/16 08:14; Admin Dose 2.5 MG; Start 07/12/16 at 09:00 Nystatin (Nystatin Susp) 5 ml QID PO Last administered on 07/17/16 08:45; Admin Dose 5 ML; Start 07/12/16 at 13:00 Haloperidol (Haldol) 1 mg BID PO Last administered on 07/17/16 08:46; Admin Dose 1 MG; Start 07/14/16 at 10:00 Aspirin (Ecotrin) 325 mg DAILY PO Last administered on 07/16/16 09:42; Admin Dose 325 MG; Start 07/16/16 at 09:00 Clopidogrel Bisulfate (plaVIX) 75 mg DAILY PO Last administered on 07/16/16 09: 43; Admin Dose 75 MG; Start 07/16/16 at 09:00 Acetaminophen (Tylenol Tab) 650 mg Q4H PRN PO NON-CARDIAC PAIN LEVEL 1-3; Start 07/15/16 at 11:30 Oxycodone/ Acetaminophen (Percocet (5/ 325)) 1 tab Q4H PRN PO REPORTED NON- CARDIAC PAIN 4-7 Last administered on 07/15/16 19:56; Admin Dose 1 TAB; Start at 11:30 Morphine Sulfate (morphine) 1 mg Q1H PRN IV PAIN NOT RELIEVED BY OTHERS Last administered on 07/15/16 12:41; Admin Dose 1 MG; Start 07/15/16 at 11:30 Al Hydrox/Mg Hydrox/Simethicone (Mag-Al Plus) 30 ml Q4H PRN PO GASTROINTESTINAL UPSET; Start 07/15/16 at 11:30 CHRISTINA JOSEPH July 17, 2016 09:57
[2016-07-17] MEDS: CLOPIDOGREL 75 MG TAB PO SCH (10:13)
[2016-07-17] MEDS: ASPIRIN (EC) 325 MG TAB PO SCH (10:13)
[2016-07-17] MEDS: morphine 2 MG INJ IV PRN (10:13)
--- NOTE | 2016-07-17 13:01 | CONS ---
Date/Time of Note Date/Time of Note DATE: 07/17/16 TIME: 12:59 Assessment/Plan Assessment/Plan Additional Assessment/Plan 1. Positive troponin, consistent with a non-ST elevation myocardial infarction. -Peaked at 40 and now downtrending significantly. Now post-op s/p diagnostic [facility] 07/06 with 3vd 100% RCA/LCX both seen via collateral flow and 90-95% prox LAD. Now POD#0 s/p PTCA/stent x LAD x 1 to LCX with PTCA/stent - DOING well, IABP out (with gratitude to Dr. Dodd) - pt tolerated well - if stable, d/ c CVC neck and to tele today or tomorrow. 2. Status post cardiac arrest- better now- better now. 3. Cardiomyopathy, with a severely depressed left ventricular ejection fraction of approximately 15% to 20% by echo on this admission. s/p repeat Echo 07/06 limited EF now 25-30% -outpt ICD eval. 4. Respiratory failure. Status post intubation. 5. Ventricular fibrillation arrest, witnessed, status post defibrillator x1- now s/p PCI, no indiaction for ICD pre-45 days 6. Encephalopathy. 7. Leukocytosis. 8. Anemia. 9. Hypotension-now improved- better now 10.Fevers Consultation Date/Type/Reason Admit Date/Time Jun 28, 2016 at 20:48 Initial Consult Date 06/29/16 Type of Consultation: ID Referring Provider: CHRISTINA JOSEPH 24 HR Interval Summary Free Text/Dictation Better now - IABP out - con't med Rx. ROS: No fever, no chills, no nausea, no vomiting, no diarrhea/constipation No recent weight changes No chest pain, no PND, no orthopnea No dizziness, blurred vision No thirst, no heat or cold intolerance Exam/Review of Systems Vital Signs Vitals Vital Signs Date Time Temp Pulse Resp B/P Pulse Ox O2 Delivery O2 Flow Rate FiO2 07/17/16 12:00 98.1 83 24 114/74 100 Room Air 07/15/16 12:00 2.0 Intake and Output 07/16/16 07/16/16 07/17/16 15:00 23:00 07:00 Intake Total 595.50 ml 597.25 ml 454 ml Output Total 500 ml 200 ml 400 ml Balance 95.50 ml 397.25 ml 54 ml Exam General: WN/WD/NAD, AOx 3 HEENT: Unicetric/atraumatic/EOMI (follow commands) NECK: JVD elevated, no thyromegaly Lymph: no lymphadenopathy HEART: regular with no S3, II/ systolic murmur at apex LUNGS: Coarse sounds ABD: soft, NT, ND, +BS : Intact Neuro: non focal SKIN: chronic changes EXT: trace edema, post baboon d/c site looks well Results Result Diagram: 07/17/16 0415 07/17/16 0415 Results 24 hrs Laboratory Tests Test 07/16/16 17:10 07/17/16 00:29 07/17/16 04:15 Prothrombin Time 13.2 12.8 Prothrombin Time Ratio 1.0 1.0 INR International Normalized Ratio 1.00 0.96 Activated Partial Thromboplast Time 51.8 H 61.4 H 69.0 H White Blood Count 9.0 Red Blood Count 3.29 L Hemoglobin 10.0 L Hematocrit 30.4 L Mean Corpuscular Volume 92.4 Mean Corpuscular Hemoglobin 30.4 Mean Corpuscular Hemoglobin Concent 32.9 Red Cell Distribution Width 13.1 Platelet Count 342 Mean Platelet Volume 9.0 Neutrophils % 59.5 Lymphocytes % 23.2 Monocytes % 12.3 H Eosinophils % 2.8 Basophils % 1.1 Nucleated Red Blood Cells % 0.0 Neutrophils # 5.4 Lymphocytes # 2.1 Monocytes # 1.1 H Eosinophils # 0.3 Basophils # 0.1 Nucleated Red Blood Cells # 0.0 Sodium Level 136 Potassium Level 4.2 Chloride Level 104 Carbon Dioxide Level 25 Anion Gap 11 Blood Urea Nitrogen 26 H Creatinine 0.92 Glucose Level 116 Calcium Level 8.6 Phosphorus Level 4.4 Magnesium Level 2.1 Medications Medications Current Medications Famotidine (Pepcid Iv) 20 mg Q12 IV Last administered on 07/17/16 08:55; Admin Dose 20 MG; Start 06/28/16 at 21:00 Meperidine HCl (Demerol) 25 mg Q4H PRN IV shivering post hypothermia pro Last administered on 06/29/16 14:44; Admin Dose 25 MG; Start 06/29/16 at 14:30 Dicyclomine HCl (Bentyl) 20 mg Q6H PRN NGT Hiccups Last administered on 09:54; Admin Dose 20 MG; Start 06/30/16 at 06:30 Miscellaneous Information 1 ea NOTE XX ; Start 06/30/16 at 09:30 Atorvastatin Calcium (Lipitor) 80 mg DAILY PO Last administered on 07/17/16 08: 47; Admin Dose 80 MG; Start 06/30/16 at 09:30 Amiodarone HCl (Cordarone) 400 mg BID PO Last administered on 07/17/16 08:46; Admin Dose 400 MG; Start 07/01/16 at 11:00 Morphine Sulfate (morphine) 2 mg Q2H PRN IV FOR NON CARDIAC PAIN (4-10) Last administered on 07/17/16 10:13; Admin Dose 2 MG; Start 07/06/16 at 10:30 Ondansetron HCl (Zofran Inj) 4 mg Q4H PRN IV NAUSEA AND/OR VOMITING; Start at 10:30 Potassium Chloride (Potassium Chloride Pwd/Soln) 40 meq DAILY GTB Last administered on 07/17/16 08:46; Admin Dose 40 MEQ; Start 07/07/16 at 15:00 Guaifenesin (Robitussin Liquid Cup) 200 mg Q4H PRN PO COUGH Last administered on 07/12/16 17:16; Admin Dose 200 MG; Start 07/10/16 at 11:30 Phenol (Cepastat Lozenge) 1 lozenge Q1H PRN MT COUGH; Start 07/10/16 at 11:30 Lorazepam (Ativan) 1 mg Q4H PRN IV AGITATION; Start 07/11/16 at 13:00 Lisinopril (Zestril) 2.5 mg DAILY PO Last administered on 07/13/16 08:14; Admin Dose 2.5 MG; Start 07/12/16 at 09:00 Nystatin (Nystatin Susp) 5 ml QID PO Last administered on 07/17/16 08:45; Admin Dose 5 ML; Start 07/12/16 at 13:00 Haloperidol (Haldol) 1 mg BID PO Last administered on 07/17/16 08:46; Admin Dose 1 MG; Start 07/14/16 at 10:00 Aspirin (Ecotrin) 325 mg DAILY PO Last administered on 07/17/16 10:13; Admin Dose 325 MG; Start 07/16/16 at 09:00 Clopidogrel Bisulfate (plaVIX) 75 mg DAILY PO Last administered on 07/17/16 10: 13; Admin Dose 75 MG; Start 07/16/16 at 09:00 Acetaminophen (Tylenol Tab) 650 mg Q4H PRN PO NON-CARDIAC PAIN LEVEL 1-3; Start 07/15/16 at 11:30 Oxycodone/ Acetaminophen (Percocet (5/ 325)) 1 tab Q4H PRN PO REPORTED NON- CARDIAC PAIN 4-7 Last administered on 07/15/16 19:56; Admin Dose 1 TAB; Start at 11:30 Morphine Sulfate (morphine) 1 mg Q1H PRN IV PAIN NOT RELIEVED BY OTHERS Last administered on 07/15/16 12:41; Admin Dose 1 MG; Start 07/15/16 at 11:30 Al Hydrox/Mg Hydrox/Simethicone (Mag-Al Plus) 30 ml Q4H PRN PO GASTROINTESTINAL UPSET; Start 07/15/16 at 11:30 JANICE HARKINS MD July 17, 2016 13:01
--- NOTE | 2016-07-17 13:21 | CONS ---
Date/Time of Note Date/Time of Note DATE: 07/17/16 TIME: 13:19 Consult Date/Type/Reason Admit Date/Time Jun 28, 2016 at 20:48 Initial Consult Date 06/29/16 Type of Consultation: pulmonary ICU Ordering Provider: CHRISTINA JOSEPH Subjective Patient awake alert and oriented comfortable at rest Intra-aortic balloon pump removed this morning Objective Vital Signs Date Time Temp Pulse Resp B/P Pulse Ox O2 Delivery O2 Flow Rate FiO2 07/17/16 12:00 98.1 83 24 114/74 100 Room Air 07/15/16 12:00 2.0 Intake and Output 07/16/16 07/16/16 07/17/16 14:59 22:59 06:59 Intake Total 596.50 ml 595.75 ml 454 ml Output Total 250 ml 450 ml 400 ml Balance 346.50 ml 145.75 ml 54 ml Exam PHYSICAL EXAMINATION GENERAL: Young gentleman on nasal cannula oxygen VITAL SIGNS: see below. HEENT: Pupils equal, round, and reactive to light. CARDIAC: S1, S2, 2/6 systolic ejection murmur CHEST: Diminished air entry bilaterally. ABDOMEN: Mildly distended. Bowel sounds present no guarding or rebound. EXTREMITIES: No cyanosis, clubbing or edema. NEUROLOGIC: No focal deficits Results/Medications Result Diagram: 07/17/16 0415 07/17/16 0415 Results 24 hrs Laboratory Tests Test 07/16/16 17:10 07/17/16 00:29 07/17/16 04:15 Prothrombin Time 13.2 12.8 Prothrombin Time Ratio 1.0 1.0 INR International Normalized Ratio 1.00 0.96 Activated Partial Thromboplast Time 51.8 H 61.4 H 69.0 H White Blood Count 9.0 Red Blood Count 3.29 L Hemoglobin 10.0 L Hematocrit 30.4 L Mean Corpuscular Volume 92.4 Mean Corpuscular Hemoglobin 30.4 Mean Corpuscular Hemoglobin Concent 32.9 Red Cell Distribution Width 13.1 Platelet Count 342 Mean Platelet Volume 9.0 Neutrophils % 59.5 Lymphocytes % 23.2 Monocytes % 12.3 H Eosinophils % 2.8 Basophils % 1.1 Nucleated Red Blood Cells % 0.0 Neutrophils # 5.4 Lymphocytes # 2.1 Monocytes # 1.1 H Eosinophils # 0.3 Basophils # 0.1 Nucleated Red Blood Cells # 0.0 Sodium Level 136 Potassium Level 4.2 Chloride Level 104 Carbon Dioxide Level 25 Anion Gap 11 Blood Urea Nitrogen 26 H Creatinine 0.92 Glucose Level 116 Calcium Level 8.6 Phosphorus Level 4.4 Magnesium Level 2.1 Medications Current Medications Famotidine (Pepcid Iv) 20 mg Q12 IV Last administered on 07/17/16 08:55; Admin Dose 20 MG; Start 06/28/16 at 21:00 Meperidine HCl (Demerol) 25 mg Q4H PRN IV shivering post hypothermia pro Last administered on 06/29/16 14:44; Admin Dose 25 MG; Start 06/29/16 at 14:30 Dicyclomine HCl (Bentyl) 20 mg Q6H PRN NGT Hiccups Last administered on 09:54; Admin Dose 20 MG; Start 06/30/16 at 06:30 Miscellaneous Information 1 ea NOTE XX ; Start 06/30/16 at 09:30 Atorvastatin Calcium (Lipitor) 80 mg DAILY PO Last administered on 07/17/16 08: 47; Admin Dose 80 MG; Start 06/30/16 at 09:30 Amiodarone HCl (Cordarone) 400 mg BID PO Last administered on 07/17/16 08:46; Admin Dose 400 MG; Start 07/01/16 at 11:00 Morphine Sulfate (morphine) 2 mg Q2H PRN IV FOR NON CARDIAC PAIN (4-10) Last administered on 07/17/16 10:13; Admin Dose 2 MG; Start 07/06/16 at 10:30 Ondansetron HCl (Zofran Inj) 4 mg Q4H PRN IV NAUSEA AND/OR VOMITING; Start at 10:30 Potassium Chloride (Potassium Chloride Pwd/Soln) 40 meq DAILY GTB Last administered on 07/17/16 08:46; Admin Dose 40 MEQ; Start 07/07/16 at 15:00 Guaifenesin (Robitussin Liquid Cup) 200 mg Q4H PRN PO COUGH Last administered on 07/12/16 17:16; Admin Dose 200 MG; Start 07/10/16 at 11:30 Phenol (Cepastat Lozenge) 1 lozenge Q1H PRN MT COUGH; Start 07/10/16 at 11:30 Lorazepam (Ativan) 1 mg Q4H PRN IV AGITATION; Start 07/11/16 at 13:00 Lisinopril (Zestril) 2.5 mg DAILY PO Last administered on 07/13/16 08:14; Admin Dose 2.5 MG; Start 07/12/16 at 09:00 Nystatin (Nystatin Susp) 5 ml QID PO Last administered on 07/17/16 08:45; Admin Dose 5 ML; Start 07/12/16 at 13:00 Haloperidol (Haldol) 1 mg BID PO Last administered on 07/17/16 08:46; Admin Dose 1 MG; Start 07/14/16 at 10:00 Aspirin (Ecotrin) 325 mg DAILY PO Last administered on 07/17/16 10:13; Admin Dose 325 MG; Start 07/16/16 at 09:00 Clopidogrel Bisulfate (plaVIX) 75 mg DAILY PO Last administered on 07/17/16 10: 13; Admin Dose 75 MG; Start 07/16/16 at 09:00 Acetaminophen (Tylenol Tab) 650 mg Q4H PRN PO NON-CARDIAC PAIN LEVEL 1-3; Start 07/15/16 at 11:30 Oxycodone/ Acetaminophen (Percocet (5/ 325)) 1 tab Q4H PRN PO REPORTED NON- CARDIAC PAIN 4-7 Last administered on 07/15/16 19:56; Admin Dose 1 TAB; Start at 11:30 Morphine Sulfate (morphine) 1 mg Q1H PRN IV PAIN NOT RELIEVED BY OTHERS Last administered on 07/15/16 12:41; Admin Dose 1 MG; Start 07/15/16 at 11:30 Al Hydrox/Mg Hydrox/Simethicone (Mag-Al Plus) 30 ml Q4H PRN PO GASTROINTESTINAL UPSET; Start 07/15/16 at 11:30 Assessment/Plan Chief Complaint/Hosp Course Assessment 1. Cardiopulmonary arrest. Ventricular arrhythmia following spontaneous return of circulation. Ejection fraction 15% cardiogenic shock with elevated troponins cardiac catheterization shows multivessel coronary artery disease. Status post PCI with now removal of intra-aortic balloon pump 2. Hypoxemic respiratory failure evidence of pulmonary edema on chest x-ray now safely extubated 3. Possible aspiration pneumonia 4. Resolving sepsis 5. Hypokalemia Plan 1. Continue cardiology recommendations, gently ambulate tomorrow. 2. Diuresis with tolerated 3. Supplemental O2 and incentive spirometry 4. Broad-spectrum antibiotics for underlying sepsis 5. DVT and GI prophylaxis Disposition Continue ICU care Problems: ELIZABETH STERN MD, [facility] July 17, 2016 13:21
--- NOTE | 2016-07-17 13:32 | RADRPT ---
PROCEDURE: XR Chest. CLINICAL INDICATION: Shortness of breath. TECHNIQUE: Single frontal view. COMPARISON: 07/13/2016. FINDINGS: There is a right internal jugular vein catheter with the tip in the upper superior vena cava, unchan ged. Mild left basilar atelectasis and hazy opacification of the left lung is improved. The lungs are otherwise clear. The heart size is normal. There is no pleural effusion. There is no pneumothorax. IMPRESSION: 1. Improved appearance of the lungs. 2. No other change from 07/13/2016. RPTAT: QQ .Oscar Velazquez MD, MD Date Time Electronically viewed and signed by .Oscar Velazquez MD, on 07/17/2016 13:32 .R/
--- NOTE | 2016-07-17 15:55 | CONS ---
Date/Time of Note Date/Time of Note DATE: 07/17/16 TIME: 15:54 Assessment/Plan Assessment/Plan Chief Complaint/Hosp Course SUBJECTIVE: No events overnight. Alert, no fevers/n/v/d, looks comfortable. INDWELLINGS: Right IJ triple-lumen catheter PHYSICAL EXAMINATION: GENERAL: This is well-developed, middle-aged man who is awake, in no distress. HEENT: Head atraumatic, normocephalic. Sclerae anicteric. Buccal mucosa dry. NECK: Supple, trachea midline. CHEST: Rise symmetrical. Breath sounds clear, diminished to bases. HEART: S1, S2. ABDOMEN: Soft. Bowel sounds present. EXTREMITIES: No cyanosis. ASSESSMENT: 1. Systemic inflammatory response syndrome with resolving leukocytosis. 2. S/p resp failure/pneumonia/pulmonary edema. 3. Status post cardiopulmonary arrest and cardiogenic shock. 4. Non-ST elevation myocardial infarction==> s/p Left heart catheterization, placement of intra-aortic balloon pump to left femoral artery, PTCA. PLAN: The patient remains stable. Continue present care, card rec-s, gomez cx prn [facility] staff Problems: Consultation Date/Type/Reason Admit Date/Time Jun 28, 2016 at 20:48 Initial Consult Date 06/29/16 Type of Consultation: ID Referring Provider: CHRISTINA JOSEPH Exam/Review of Systems Vital Signs Vitals Vital Signs Date Time Temp Pulse Resp B/P Pulse Ox O2 Delivery O2 Flow Rate FiO2 07/17/16 12:00 98.1 83 24 114/74 100 Room Air 07/15/16 12:00 2.0 Intake and Output 07/16/16 07/16/16 07/17/16 15:00 23:00 07:00 Intake Total 595.50 ml 597.25 ml 454 ml Output Total 500 ml 200 ml 400 ml Balance 95.50 ml 397.25 ml 54 ml Results Result Diagram: 07/17/16 0415 07/17/16 0415 Results 24 hrs Laboratory Tests Test 07/16/16 17:10 07/17/16 00:29 07/17/16 04:15 Prothrombin Time 13.2 12.8 Prothrombin Time Ratio 1.0 1.0 INR International Normalized Ratio 1.00 0.96 Activated Partial Thromboplast Time 51.8 H 61.4 H 69.0 H White Blood Count 9.0 Red Blood Count 3.29 L Hemoglobin 10.0 L Hematocrit 30.4 L Mean Corpuscular Volume 92.4 Mean Corpuscular Hemoglobin 30.4 Mean Corpuscular Hemoglobin Concent 32.9 Red Cell Distribution Width 13.1 Platelet Count 342 Mean Platelet Volume 9.0 Neutrophils % 59.5 Lymphocytes % 23.2 Monocytes % 12.3 H Eosinophils % 2.8 Basophils % 1.1 Nucleated Red Blood Cells % 0.0 Neutrophils # 5.4 Lymphocytes # 2.1 Monocytes # 1.1 H Eosinophils # 0.3 Basophils # 0.1 Nucleated Red Blood Cells # 0.0 Sodium Level 136 Potassium Level 4.2 Chloride Level 104 Carbon Dioxide Level 25 Anion Gap 11 Blood Urea Nitrogen 26 H Creatinine 0.92 Glucose Level 116 Calcium Level 8.6 Phosphorus Level 4.4 Magnesium Level 2.1 Medications Medications Current Medications Famotidine (Pepcid Iv) 20 mg Q12 IV Last administered on 07/17/16 08:55; Admin Dose 20 MG; Start 06/28/16 at 21:00 Meperidine HCl (Demerol) 25 mg Q4H PRN IV shivering post hypothermia pro Last administered on 06/29/16 14:44; Admin Dose 25 MG; Start 06/29/16 at 14:30 Dicyclomine HCl (Bentyl) 20 mg Q6H PRN NGT Hiccups Last administered on 09:54; Admin Dose 20 MG; Start 06/30/16 at 06:30 Miscellaneous Information 1 ea NOTE XX ; Start 06/30/16 at 09:30 Atorvastatin Calcium (Lipitor) 80 mg DAILY PO Last administered on 07/17/16 08: 47; Admin Dose 80 MG; Start 06/30/16 at 09:30 Amiodarone HCl (Cordarone) 400 mg BID PO Last administered on 07/17/16 08:46; Admin Dose 400 MG; Start 07/01/16 at 11:00 Morphine Sulfate (morphine) 2 mg Q2H PRN IV FOR NON CARDIAC PAIN (4-10) Last administered on 07/17/16 10:13; Admin Dose 2 MG; Start 07/06/16 at 10:30 Ondansetron HCl (Zofran Inj) 4 mg Q4H PRN IV NAUSEA AND/OR VOMITING; Start at 10:30 Potassium Chloride (Potassium Chloride Pwd/Soln) 40 meq DAILY GTB Last administered on 07/17/16 08:46; Admin Dose 40 MEQ; Start 07/07/16 at 15:00 Guaifenesin (Robitussin Liquid Cup) 200 mg Q4H PRN PO COUGH Last administered on 07/12/16 17:16; Admin Dose 200 MG; Start 07/10/16 at 11:30 Phenol (Cepastat Lozenge) 1 lozenge Q1H PRN MT COUGH; Start 07/10/16 at 11:30 Lorazepam (Ativan) 1 mg Q4H PRN IV AGITATION; Start 07/11/16 at 13:00 Lisinopril (Zestril) 2.5 mg DAILY PO Last administered on 07/13/16 08:14; Admin Dose 2.5 MG; Start 07/12/16 at 09:00 Nystatin (Nystatin Susp) 5 ml QID PO Last administered on 07/17/16 13:57; Admin Dose 5 ML; Start 07/12/16 at 13:00 Haloperidol (Haldol) 1 mg BID PO Last administered on 07/17/16 08:46; Admin Dose 1 MG; Start 07/14/16 at 10:00 Aspirin (Ecotrin) 325 mg DAILY PO Last administered on 07/17/16 10:13; Admin Dose 325 MG; Start 07/16/16 at 09:00 Clopidogrel Bisulfate (plaVIX) 75 mg DAILY PO Last administered on 07/17/16 10: 13; Admin Dose 75 MG; Start 07/16/16 at 09:00 Acetaminophen (Tylenol Tab) 650 mg Q4H PRN PO NON-CARDIAC PAIN LEVEL 1-3; Start 07/15/16 at 11:30 Oxycodone/ Acetaminophen (Percocet (5/ 325)) 1 tab Q4H PRN PO REPORTED NON- CARDIAC PAIN 4-7 Last administered on 07/15/16 19:56; Admin Dose 1 TAB; Start at 11:30 Morphine Sulfate (morphine) 1 mg Q1H PRN IV PAIN NOT RELIEVED BY OTHERS Last administered on 07/15/16 12:41; Admin Dose 1 MG; Start 07/15/16 at 11:30 Al Hydrox/Mg Hydrox/Simethicone (Mag-Al Plus) 30 ml Q4H PRN PO GASTROINTESTINAL UPSET; Start 07/15/16 at 11:30 CAROLINA ISAAC NP July 17, 2016 15:55
[2016-07-17] MEDS: MEPERIDINE 25 MG INJ IV PRN (20:20)
[2016-07-18] VITALS (16 sets, daily range): BP systolic 82–111; BP diastolic 51–70; PULSE 65–102; RESP 17–24
[2016-07-18] MEDS: MEPERIDINE 25 MG INJ IV PRN (03:23)
[2016-07-18] MEDS: FUROSEMIDE 40 MG INJ IV SCH ×2 (05:56→17:04)
[2016-07-18] MEDS: POTASSIUM CHLORIDE 20 MEQ POWDER FOR ORAL SOLN GTB SCH (08:36)
[2016-07-18] MEDS: HALOPERIDOL 1 MG TAB PO SCH ×2 (08:37→21:06)
[2016-07-18] MEDS: ATORVASTATIN 80 MG TAB PO SCH (08:37)
[2016-07-18] MEDS: ASPIRIN (EC) 325 MG TAB PO SCH (08:37)
[2016-07-18] MEDS: AMIODARONE 200 MG TAB PO SCH ×2 (08:38→21:06)
[2016-07-18] MEDS: NYSTATIN SUSP 5 ML CUP PO SCH ×4 (08:38→21:29)
[2016-07-18] MEDS: CLOPIDOGREL 75 MG TAB PO SCH (08:38)
[2016-07-18] MEDS: LISINOPRIL 5 MG TAB PO SCH (08:39)
[2016-07-18] MEDS: FAMOTIDINE 20 MG INJ IV SCH ×2 (08:45→21:06)
--- NOTE | 2016-07-18 09:47 | CONS ---
Date/Time of Note Date/Time of Note DATE: 07/18/16 TIME: 09:46 Assessment/Plan Assessment/Plan Additional Assessment/Plan Assessment recommendations; 1. Patient admitted with acute MD status post respiratory failure. 2. Status post PCI, as well as removal of intra-aortic balloon pump 2 days ago with excellent overall clinical status. Continue current treatment. Consultation Date/Type/Reason Admit Date/Time Jun 28, 2016 at 20:48 Initial Consult Date 06/29/16 Type of Consultation: Pulmonary/critical care Referring Provider: CHRISTINA JOSEPH 24 HR Interval Summary Free Text/Dictation Patient condition is stable. Sitting in a chair at bedside. Denies any shortness of breath,. General exam; young male, awake alert currently in no distress. Exam/Review of Systems Vital Signs Vitals Vital Signs Date Time Temp Pulse Resp B/P Pulse Ox O2 Delivery O2 Flow Rate FiO2 07/18/16 08:00 75 07/18/16 08:00 98.2 19 100/70 100 Room Air 07/15/16 12:00 2.0 Intake and Output 07/17/16 07/17/16 07/18/16 14:59 22:59 06:59 Intake Total 826 ml 450 ml Output Total 600 ml 800 ml 400 ml Balance 226 ml -800 ml 50 ml Exam HEENT exam is; supple neck, no JVD. No lymphadenopathy. Midline trachea. No thyromegaly. Pharynx is clear. Patient has good dentition. Pupils are midsize and reactive to light. Chest examination; clear to auscultation. S1-S2 audible, no murmurs. Regular rhythm. Abdomen examination; soft, nondistended. No organomegaly. Bowel sounds audible. Extremity examination; no peripheral edema. Pulses 2+ bilaterally. SCIENTIFIC WRITER examination; no focal deficit. Results Result Diagram: 07/17/16 0415 07/17/16 0415 Medications Medications Current Medications Famotidine (Pepcid Iv) 20 mg Q12 IV Last administered on 07/18/16 08:45; Admin Dose 20 MG; Start 06/28/16 at 21:00 Meperidine HCl (Demerol) 25 mg Q4H PRN IV shivering post hypothermia pro Last administered on 07/18/16 03:23; Admin Dose 25 MG; Start 06/29/16 at 14:30 Dicyclomine HCl (Bentyl) 20 mg Q6H PRN NGT Hiccups Last administered on 09:54; Admin Dose 20 MG; Start 06/30/16 at 06:30 Miscellaneous Information 1 ea NOTE XX ; Start 06/30/16 at 09:30 Atorvastatin Calcium (Lipitor) 80 mg DAILY PO Last administered on 07/18/16 08: 37; Admin Dose 80 MG; Start 06/30/16 at 09:30 Amiodarone HCl (Cordarone) 400 mg BID PO Last administered on 07/18/16 08:38; Admin Dose 400 MG; Start 07/01/16 at 11:00 Morphine Sulfate (morphine) 2 mg Q2H PRN IV FOR NON CARDIAC PAIN (4-10) Last administered on 07/17/16 10:13; Admin Dose 2 MG; Start 07/06/16 at 10:30 Ondansetron HCl (Zofran Inj) 4 mg Q4H PRN IV NAUSEA AND/OR VOMITING; Start at 10:30 Potassium Chloride (Potassium Chloride Pwd/Soln) 40 meq DAILY GTB Last administered on 07/18/16 08:36; Admin Dose 40 MEQ; Start 07/07/16 at 15:00 Guaifenesin (Robitussin Liquid Cup) 200 mg Q4H PRN PO COUGH Last administered on 07/12/16 17:16; Admin Dose 200 MG; Start 07/10/16 at 11:30 Phenol (Cepastat Lozenge) 1 lozenge Q1H PRN MT COUGH; Start 07/10/16 at 11:30 Lorazepam (Ativan) 1 mg Q4H PRN IV AGITATION; Start 07/11/16 at 13:00 Lisinopril (Zestril) 2.5 mg DAILY PO Last administered on 07/13/16 08:14; Admin Dose 2.5 MG; Start 07/12/16 at 09:00 Nystatin (Nystatin Susp) 5 ml QID PO Last administered on 07/18/16 08:38; Admin Dose 5 ML; Start 07/12/16 at 13:00 Haloperidol (Haldol) 1 mg BID PO Last administered on 07/18/16 08:37; Admin Dose 1 MG; Start 07/14/16 at 10:00 Aspirin (Ecotrin) 325 mg DAILY PO Last administered on 07/18/16 08:37; Admin Dose 325 MG; Start 07/16/16 at 09:00 Clopidogrel Bisulfate (plaVIX) 75 mg DAILY PO Last administered on 07/18/16 08: 38; Admin Dose 75 MG; Start 07/16/16 at 09:00 Acetaminophen (Tylenol Tab) 650 mg Q4H PRN PO NON-CARDIAC PAIN LEVEL 1-3; Start 07/15/16 at 11:30 Oxycodone/ Acetaminophen (Percocet (5/ 325)) 1 tab Q4H PRN PO REPORTED NON- CARDIAC PAIN 4-7 Last administered on 07/15/16 19:56; Admin Dose 1 TAB; Start at 11:30 Morphine Sulfate (morphine) 1 mg Q1H PRN IV PAIN NOT RELIEVED BY OTHERS Last administered on 07/15/16 12:41; Admin Dose 1 MG; Start 07/15/16 at 11:30 Al Hydrox/Mg Hydrox/Simethicone (Mag-Al Plus) 30 ml Q4H PRN PO GASTROINTESTINAL UPSET; Start 07/15/16 at 11:30 SARITHA RAYMUNDO July 18, 2016 09:47
[2016-07-18 10:19] LABS: ALBUMIN 4.6 g/dl (3.3-4.9)
[2016-07-18 10:20] LABS: POTASSIUM 4.2 mmol/L (3.5-5.1)
[2016-07-18 10:22] LABS: BILIRUBIN,INDIRECT 0.3 mg/dl (0-1.1); BILIRUBIN,TOTAL 0.3 mg/dl (0.2-1.3); CREATININE 1.02 mg/dl (0.61-1.24)
[2016-07-18 10:23] LABS: ALBUMIN/GLOBULIN RATIO 1.27; CALCIUM 9.6 mg/dl (8.4-10.2); TOTAL PROTEIN 8.2 g/dl (6.1-8.1)
--- NOTE | 2016-07-18 10:55 | CONS ---
Date/Time of Note Date/Time of Note DATE: 07/18/16 TIME: 10:51 Assessment/Plan Assessment/Plan Chief Complaint/Hosp Course IMPRESSION: 1. Positive troponin, consistent with a non-ST elevation myocardial infarction. -Peaked at 40 and now downtrending significantly. Now post-op s/p diagnostic LHC 07/06 with 3vd 100% RCA/LCX both seen via collateral flow and 90-95% prox LAD. Now Post-op s/p PTCA/stent x LAD x 1 to LCX with PTCA/stent 2. Status post cardiac arrest. 3. Cardiomyopathy, with a severely depressed left ventricular ejection fraction of approximately 15% to 20% by echo on this admission. s/p repeat Echo 07/06 limited EF last 25-30% 4. Respiratory failure. Status post intubation. 5. Ventricular fibrillation arrest, witnessed, status post defibrillator x1. 6. Encephalopathy. 7. Leukocytosis. 8. Anemia. 9. Hypotension-now improved 10.Fevers Recc: -Tele -Continue lasix diuresis with probable change to PO Lasix soon -Follow for any recurrent bleeding -Continue PO amiodarone -Continue abx's and f/u cx data -Continue low dose ACEI as tolerated and follow BP closely and if remains stable will start low dose BB -Continue now plavix/asa s/p PTCA/stent -Ok for tele Problems: Consultation Date/Type/Reason Admit Date/Time Jun 28, 2016 at 20:48 Initial Consult Date 06/29/16 Type of Consultation: Cardiology Reason for Consultation Nstemi Referring Provider: CHRISTINA JOSEPH Exam/Review of Systems Vital Signs Vitals Vital Signs Date Time Temp Pulse Resp B/P Pulse Ox O2 Delivery O2 Flow Rate FiO2 07/18/16 08:00 75 07/18/16 08:00 98.2 19 100/70 100 Room Air 07/15/16 12:00 2.0 Intake and Output 07/17/16 07/17/16 07/18/16 14:59 22:59 06:59 Intake Total 826 ml 450 ml Output Total 600 ml 800 ml 400 ml Balance 226 ml -800 ml 50 ml Exam Review of Systems: CONSTITUTIONAL: No fevers, chills. PULMONARY: No sob CARDIOVASCULAR: No chest pain/palpitations GASTROINTESTINAL: No nausea/vomiting. GENITOURINARY: No hematuria/dysuria. MUSCULOSKELETAL: No myagias/arthalgias. PSYCHIATRIC: The patient denies depression. NEUROLOGIC: slowly improving MS Constitutional: alert Psych: no complaints Head: normocephalic ENMT: mucosa pink and moist Neck: jvd (9 cm water), supple Respiratory: clear to auscultation Cardiovascular: regular rate and rhythm Gastrointestinal: non-tender, soft Musculoskeletal: muscle tone (normal) Extremities: edema (none) Neurological: lethargic Results Result Diagram: 07/17/16 0415 07/18/16 0950 Results 24 hrs Laboratory Tests Test 07/18/16 09:50 Sodium Level 138 Potassium Level 4.2 Chloride Level 97 Carbon Dioxide Level 25 Anion Gap 20 #H Blood Urea Nitrogen 30 H Creatinine 1.02 Glucose Level 176 Calcium Level 9.6 Total Bilirubin 0.3 Direct Bilirubin 0.00 Indirect Bilirubin 0.3 Aspartate Amino Transf (AST/SGOT) 43 Alanine Aminotransferase (ALT/SGPT) 103 H Alkaline Phosphatase 124 H Total Protein 8.2 H Albumin 4.6 Globulin 3.60 H Albumin/Globulin Ratio 1.27 Medications Medications Current Medications Famotidine (Pepcid Iv) 20 mg Q12 IV Last administered on 07/18/16 08:45; Admin Dose 20 MG; Start 06/28/16 at 21:00 Meperidine HCl (Demerol) 25 mg Q4H PRN IV shivering post hypothermia pro Last administered on 07/18/16 03:23; Admin Dose 25 MG; Start 06/29/16 at 14:30 Dicyclomine HCl (Bentyl) 20 mg Q6H PRN NGT Hiccups Last administered on 09:54; Admin Dose 20 MG; Start 06/30/16 at 06:30 Miscellaneous Information 1 ea NOTE XX ; Start 06/30/16 at 09:30 Atorvastatin Calcium (Lipitor) 80 mg DAILY PO Last administered on 07/18/16 08: 37; Admin Dose 80 MG; Start 06/30/16 at 09:30 Amiodarone HCl (Cordarone) 400 mg BID PO Last administered on 07/18/16 08:38; Admin Dose 400 MG; Start 07/01/16 at 11:00 Morphine Sulfate (morphine) 2 mg Q2H PRN IV FOR NON CARDIAC PAIN (4-10) Last administered on 07/17/16 10:13; Admin Dose 2 MG; Start 07/06/16 at 10:30 Ondansetron HCl (Zofran Inj) 4 mg Q4H PRN IV NAUSEA AND/OR VOMITING; Start at 10:30 Potassium Chloride (Potassium Chloride Pwd/Soln) 40 meq DAILY GTB Last administered on 07/18/16 08:36; Admin Dose 40 MEQ; Start 07/07/16 at 15:00 Guaifenesin (Robitussin Liquid Cup) 200 mg Q4H PRN PO COUGH Last administered on 07/12/16 17:16; Admin Dose 200 MG; Start 07/10/16 at 11:30 Phenol (Cepastat Lozenge) 1 lozenge Q1H PRN MT COUGH; Start 07/10/16 at 11:30 Lorazepam (Ativan) 1 mg Q4H PRN IV AGITATION; Start 07/11/16 at 13:00 Lisinopril (Zestril) 2.5 mg DAILY PO Last administered on 07/13/16 08:14; Admin Dose 2.5 MG; Start 07/12/16 at 09:00 Nystatin (Nystatin Susp) 5 ml QID PO Last administered on 07/18/16 08:38; Admin Dose 5 ML; Start 07/12/16 at 13:00 Haloperidol (Haldol) 1 mg BID PO Last administered on 07/18/16 08:37; Admin Dose 1 MG; Start 07/14/16 at 10:00 Aspirin (Ecotrin) 325 mg DAILY PO Last administered on 07/18/16 08:37; Admin Dose 325 MG; Start 07/16/16 at 09:00 Clopidogrel Bisulfate (plaVIX) 75 mg DAILY PO Last administered on 07/18/16 08: 38; Admin Dose 75 MG; Start 07/16/16 at 09:00 Acetaminophen (Tylenol Tab) 650 mg Q4H PRN PO NON-CARDIAC PAIN LEVEL 1-3; Start 07/15/16 at 11:30 Oxycodone/ Acetaminophen (Percocet (5/ 325)) 1 tab Q4H PRN PO REPORTED NON- CARDIAC PAIN 4-7 Last administered on 07/15/16 19:56; Admin Dose 1 TAB; Start at 11:30 Morphine Sulfate (morphine) 1 mg Q1H PRN IV PAIN NOT RELIEVED BY OTHERS Last administered on 07/15/16t 12:41; Admin Dose 1 MG; Start 07/15/16 at 11:30 Al Hydrox/Mg Hydrox/Simethicone (Mag-Al Plus) 30 ml Q4H PRN PO GASTROINTESTINAL UPSET; Start 07/15/16 at 11:30 ELIGIO TYSON July 18, 2016 10:55
--- NOTE | 2016-07-18 11:07 | PN ---
Date/Time of Note Date/Time of Note DATE: 07/18/16 TIME: 11:04 Assessment/Plan VTE Prophylaxis VTE Prophylaxis Intervention: SCD's Lines/Catheters IV [facility]from [facility] Saline Lock Urinary Cath still in place: No Assessment/Plan Chief Complaint/Hosp Course Assessment/Plan: 36 M with: 1. Status post ventricular fibrillation cardiac arrest with ROSC * s/p hypothermia protocol. * s/p LHC 07/06/16 with multivessel ds found. 2. S/p NSTEMI 2/2 severe multivessel CAD * S/p PCI with stent placement x1 to proximal ostial left anterior descending and x1 to proximal portion of the circumflex for chronic total occlusion 07/15/16 * s/p ballon pump - now off this ASA + Plavix 3. Vent dependent respiratory failure secondary to cardiac arrest - s/p extubation 4. Shock likely septic with a cardiogenic component -resolved 5. Severe systolic dysfunction with EF of 15 to 20% 6. Pulmonary edema - resolved 7. Bilateral pneumonia, possibly from aspiration - resolved - resp cultures 07/09: amadou 8. Chronic Tobacco user 10. Acute kidney injury, resolved. 11. Hyperglycemia : A1C 5.7: resolved - ISS 12. Diarrhea - Cdiff neg CC time > 35mins * Replace electrolytes and closely monitor * Further workup and management per clinical course. Critical Care time = 40 mins Problems: Subjective 24 Hr Interval Summary Free Text/Dictation No acute events overnight, seen by CV team. Exam/Review of Systems Vital Signs Vitals Vital Signs Date Time Temp Pulse Resp B/P Pulse Ox O2 Delivery O2 Flow Rate FiO2 07/18/16 08:00 75 07/18/16 08:00 98.2 19 100/70 100 Room Air 07/15/16 12:00 2.0 Intake and Output 07/17/16 07/17/16 07/18/16 15:00 23:00 07:00 Intake Total 813 ml 450 ml Output Total 600 ml 800 ml 650 ml Balance 213 ml -800 ml -200 ml Exam Constitutional: alert, oriented Eyes: PERRL Respiratory: clear to auscultation Cardiovascular: regular rate and rhythm, No murmurs/extra sounds Gastrointestinal: bowel sounds, non-tender, soft Neurological: lethargic Results Result Diagram: 07/17/16 0415 07/18/16 0950 Results 24 hrs Laboratory Tests Test 07/18/16 09:50 Sodium Level 138 Potassium Level 4.2 Chloride Level 97 Carbon Dioxide Level 25 Anion Gap 20 #H Blood Urea Nitrogen 30 H Creatinine 1.02 Glucose Level 176 Calcium Level 9.6 Total Bilirubin 0.3 Direct Bilirubin 0.00 Indirect Bilirubin 0.3 Aspartate Amino Transf (AST/SGOT) 43 Alanine Aminotransferase (ALT/SGPT) 103 H Alkaline Phosphatase 124 H Total Protein 8.2 H Albumin 4.6 Globulin 3.60 H Albumin/Globulin Ratio 1.27 Medications Medications Current Medications Famotidine (Pepcid Iv) 20 mg Q12 IV Last administered on 07/18/16 08:45; Admin Dose 20 MG; Start 06/28/16 at 21:00 Meperidine HCl (Demerol) 25 mg Q4H PRN IV shivering post hypothermia pro Last administered on 07/18/16 03:23; Admin Dose 25 MG; Start 06/29/16 at 14:30 Dicyclomine HCl (Bentyl) 20 mg Q6H PRN NGT Hiccups Last administered on 09:54; Admin Dose 20 MG; Start 06/30/16 at 06:30 Miscellaneous Information 1 ea NOTE XX ; Start 06/30/16 at 09:30 Atorvastatin Calcium (Lipitor) 80 mg DAILY PO Last administered on 07/18/16 08: 37; Admin Dose 80 MG; Start 06/30/16 at 09:30 Amiodarone HCl (Cordarone) 400 mg BID PO Last administered on 07/18/16 08:38; Admin Dose 400 MG; Start 07/01/16 at 11:00 Morphine Sulfate (morphine) 2 mg Q2H PRN IV FOR NON CARDIAC PAIN (4-10) Last administered on 07/17/16 10:13; Admin Dose 2 MG; Start 07/06/16 at 10:30 Ondansetron HCl (Zofran Inj) 4 mg Q4H PRN IV NAUSEA AND/OR VOMITING; Start at 10:30 Potassium Chloride (Potassium Chloride Pwd/Soln) 40 meq DAILY GTB Last administered on 07/18/16 08:36; Admin Dose 40 MEQ; Start 07/07/16 at 15:00 Guaifenesin (Robitussin Liquid Cup) 200 mg Q4H PRN PO COUGH Last administered on 07/12/16 17:16; Admin Dose 200 MG; Start 07/10/16 at 11:30 Phenol (Cepastat Lozenge) 1 lozenge Q1H PRN MT COUGH; Start 07/10/16 at 11:30 Lorazepam (Ativan) 1 mg Q4H PRN IV AGITATION; Start 07/11/16 at 13:00 Lisinopril (Zestril) 2.5 mg DAILY PO Last administered on 07/13/16 08:14; Admin Dose 2.5 MG; Start 07/12/16 at 09:00 Nystatin (Nystatin Susp) 5 ml QID PO Last administered on 07/18/16 08:38; Admin Dose 5 ML; Start 07/12/16 at 13:00 Haloperidol (Haldol) 1 mg BID PO Last administered on 07/18/16 08:37; Admin Dose 1 MG; Start 07/14/16 at 10:00 Aspirin (Ecotrin) 325 mg DAILY PO Last administered on 07/18/16 08:37; Admin Dose 325 MG; Start 07/16/16 at 09:00 Clopidogrel Bisulfate (plaVIX) 75 mg DAILY PO Last administered on 07/18/16 08: 38; Admin Dose 75 MG; Start 07/16/16 at 09:00 Acetaminophen (Tylenol Tab) 650 mg Q4H PRN PO NON-CARDIAC PAIN LEVEL 1-3; Start 07/15/16 at 11:30 Oxycodone/ Acetaminophen (Percocet (5/ 325)) 1 tab Q4H PRN PO REPORTED NON- CARDIAC PAIN 4-7 Last administered on 07/15/16 19:56; Admin Dose 1 TAB; Start at 11:30 Morphine Sulfate (morphine) 1 mg Q1H PRN IV PAIN NOT RELIEVED BY OTHERS Last administered on 07/15/16 12:41; Admin Dose 1 MG; Start 07/15/16 at 11:30 Al Hydrox/Mg Hydrox/Simethicone (Mag-Al Plus) 30 ml Q4H PRN PO GASTROINTESTINAL UPSET; Start 07/15/16 at 11:30 BLACK CALVO July 18, 2016 11:07
--- NOTE | 2016-07-18 13:47 | CONS ---
Date/Time of Note Date/Time of Note DATE: 07/18/16 TIME: 13:47 Assessment/Plan Assessment/Plan Chief Complaint/Hosp Course SUBJECTIVE: No events overnight. Alert, no fevers/n/v/d, looks comfortable. INDWELLINGS: Right IJ triple-lumen catheter PHYSICAL EXAMINATION: GENERAL: This is well-developed, middle-aged man who is awake, in no distress. HEENT: Head atraumatic, normocephalic. Sclerae anicteric. Buccal mucosa dry. NECK: Supple, trachea midline. CHEST: Rise symmetrical. Breath sounds clear, diminished to bases. HEART: S1, S2. ABDOMEN: Soft. Bowel sounds present. EXTREMITIES: No cyanosis. ASSESSMENT: 1. Systemic inflammatory response syndrome with resolving leukocytosis. 2. S/p resp failure/pneumonia/pulmonary edema. 3. Status post cardiopulmonary arrest and cardiogenic shock. 4. Non-ST elevation myocardial infarction==> s/p Left heart catheterization, placement of intra-aortic balloon pump to left femoral artery, PTCA. PLAN: The patient remains stable. Continue present care, f/u card rec-s, gomez cx prn, pending tx to tele [facility] staff Problems: Consultation Date/Type/Reason Admit Date/Time Jun 28, 2016 at 20:48 Initial Consult Date 06/29/16 Type of Consultation: id Referring Provider: CHRISTINA JOSEPH Exam/Review of Systems Vital Signs Vitals Vital Signs Date Time Temp Pulse Resp B/P Pulse Ox O2 Delivery O2 Flow Rate FiO2 07/18/16 12:34 79 07/18/16 12:19 97.1 18 98/58 95 07/18/16 11:00 Room Air 07/15/16 12:00 2.0 Intake and Output 07/17/16 07/17/16 07/18/16 15:00 23:00 07:00 Intake Total 813 ml 450 ml Output Total 600 ml 800 ml 650 ml Balance 213 ml -800 ml -200 ml Results Result Diagram: 07/17/16 0415 07/18/16 0950 Results 24 hrs Laboratory Tests Test 07/18/16 09:50 Sodium Level 138 Potassium Level 4.2 Chloride Level 97 Carbon Dioxide Level 25 Anion Gap 20 #H Blood Urea Nitrogen 30 H Creatinine 1.02 Glucose Level 176 Calcium Level 9.6 Total Bilirubin 0.3 Direct Bilirubin 0.00 Indirect Bilirubin 0.3 Aspartate Amino Transf (AST/SGOT) 43 Alanine Aminotransferase (ALT/SGPT) 103 H Alkaline Phosphatase 124 H Total Protein 8.2 H Albumin 4.6 Globulin 3.60 H Albumin/Globulin Ratio 1.27 Medications Medications Current Medications Famotidine (Pepcid Iv) 20 mg Q12 IV Last administered on 07/18/16 08:45; Admin Dose 20 MG; Start 06/28/16 at 21:00 Meperidine HCl (Demerol) 25 mg Q4H PRN IV shivering post hypothermia pro Last administered on 07/18/16 03:23; Admin Dose 25 MG; Start 06/29/16 at 14:30 Dicyclomine HCl (Bentyl) 20 mg Q6H PRN NGT Hiccups Last administered on 09:54; Admin Dose 20 MG; Start 06/30/16 at 06:30 Miscellaneous Information 1 ea NOTE XX ; Start 06/30/16 at 09:30 Atorvastatin Calcium (Lipitor) 80 mg DAILY PO Last administered on 07/18/16 08: 37; Admin Dose 80 MG; Start 06/30/16 at 09:30 Amiodarone HCl (Cordarone) 400 mg BID PO Last administered on 07/18/16 08:38; Admin Dose 400 MG; Start 07/01/16 at 11:00 Morphine Sulfate (morphine) 2 mg Q2H PRN IV FOR NON CARDIAC PAIN (4-10) Last administered on 07/17/16 10:13; Admin Dose 2 MG; Start 07/06/16 at 10:30 Ondansetron HCl (Zofran Inj) 4 mg Q4H PRN IV NAUSEA AND/OR VOMITING; Start at 10:30 Potassium Chloride (Potassium Chloride Pwd/Soln) 40 meq DAILY GTB Last administered on 07/18/16 08:36; Admin Dose 40 MEQ; Start 07/07/16 at 15:00 Guaifenesin (Robitussin Liquid Cup) 200 mg Q4H PRN PO COUGH Last administered on 07/12/16 17:16; Admin Dose 200 MG; Start 07/10/16 at 11:30 Phenol (Cepastat Lozenge) 1 lozenge Q1H PRN MT COUGH; Start 07/10/16 at 11:30 Lorazepam (Ativan) 1 mg Q4H PRN IV AGITATION; Start 07/11/16 at 13:00 Lisinopril (Zestril) 2.5 mg DAILY PO Last administered on 07/13/16 08:14; Admin Dose 2.5 MG; Start 07/12/16 at 09:00 Nystatin (Nystatin Susp) 5 ml QID PO Last administered on 07/18/16 08:38; Admin Dose 5 ML; Start 07/12/16 at 13:00 Haloperidol (Haldol) 1 mg BID PO Last administered on 07/18/16 08:37; Admin Dose 1 MG; Start 07/14/16 at 10:00 Aspirin (Ecotrin) 325 mg DAILY PO Last administered on 07/18/16 08:37; Admin Dose 325 MG; Start 07/16/16 at 09:00 Clopidogrel Bisulfate (plaVIX) 75 mg DAILY PO Last administered on 07/18/16 08: 38; Admin Dose 75 MG; Start 07/16/16 at 09:00 Acetaminophen (Tylenol Tab) 650 mg Q4H PRN PO NON-CARDIAC PAIN LEVEL 1-3; Start 07/15/16 at 11:30 Oxycodone/ Acetaminophen (Percocet (5/ 325)) 1 tab Q4H PRN PO REPORTED NON- CARDIAC PAIN 4-7 Last administered on 07/15/16 19:56; Admin Dose 1 TAB; Start at 11:30 Morphine Sulfate (morphine) 1 mg Q1H PRN IV PAIN NOT RELIEVED BY OTHERS Last administered on 07/15/16 12:41; Admin Dose 1 MG; Start 07/15/16 at 11:30 Al Hydrox/Mg Hydrox/Simethicone (Mag-Al Plus) 30 ml Q4H PRN PO GASTROINTESTINAL UPSET; Start 07/15/16 at 11:30 CAROLINA ISAAC NP July 18, 2016 13:47
[2016-07-19] VITALS (21 sets, daily range): BP systolic 74–110; BP diastolic 37–70; PULSE 63–99; RESP 17–27
[2016-07-19] MEDS: FUROSEMIDE 40 MG INJ IV SCH ×2 (06:25→17:21)
[2016-07-19] MEDS: NYSTATIN SUSP 5 ML CUP PO SCH ×4 (09:05→20:45)
[2016-07-19] MEDS: HALOPERIDOL 1 MG TAB PO SCH ×2 (09:05→21:50)
[2016-07-19] MEDS: FAMOTIDINE 20 MG INJ IV SCH ×2 (09:05→20:46)
[2016-07-19] MEDS: POTASSIUM CHLORIDE 20 MEQ POWDER FOR ORAL SOLN GTB SCH (09:05)
[2016-07-19] MEDS: CLOPIDOGREL 75 MG TAB PO SCH (09:06)
[2016-07-19] MEDS: AMIODARONE 200 MG TAB PO SCH ×2 (09:06→20:46)
[2016-07-19] MEDS: ASPIRIN (EC) 325 MG TAB PO SCH (09:06)
[2016-07-19] MEDS: LISINOPRIL 5 MG TAB PO SCH (09:06)
[2016-07-19] MEDS: ATORVASTATIN 80 MG TAB PO SCH (09:07)
--- NOTE | 2016-07-19 10:23 | CONS ---
Date/Time of Note Date/Time of Note DATE: 07/19/16 TIME: 10:21 Assessment/Plan Assessment/Plan Additional Assessment/Plan 1. Positive troponin, consistent with a non-ST elevation myocardial infarction. -Peaked at 40 and now downtrending significantly. Now post-op s/p diagnostic C 07/06 with 3vd 100% RCA/LCX both seen via collateral flow and 90-95% prox LAD. Now Post-op s/p PTCA/stent x LAD x 1 to LCX with PTCA/stent - doing well - if D/c , f/up with Dr. Chow next week 2. Status post cardiac arrest- much better now 3. Cardiomyopathy, with a severely depressed left ventricular ejection fraction of approximately 15% to 20% by echo on this admission. s/p repeat Echo 07/06 limited EF last 25-30% - will see in the office for outpt ICd eval. 4. Respiratory failure - much better now. . 5. Ventricular fibrillation arrest, witnessed, status post defibrillator x1 - on rx, will follow - ZOLE DEFIBRILLATOR ADVISED. 6. Encephalopathy. 7. Leukocytosis. 8. Anemia. 9. Hypotension-now improved 10.Fevers Consultation Date/Type/Reason Admit Date/Time Jun 28, 2016 at 20:48 Initial Consult Date 06/29/16 Type of Consultation: id Referring Provider: CHRISTINA JOSEPH Exam/Review of Systems Vital Signs Vitals Vital Signs Date Time Temp Pulse Resp B/P Pulse Ox O2 Delivery O2 Flow Rate FiO2 07/19/16 08:33 83 07/19/16 07:54 97.8 18 107/70 97 07/18/16 11:00 Room Air 07/15/16 12:00 2.0 Intake and Output 07/18/16 07/18/16 07/19/16 15:00 23:00 07:00 Intake Total 250 ml 500 ml Output Total 0 ml 750 ml Balance 250 ml -250 ml Exam ROS: No fever, no chills, no nausea, no vomiting, no diarrhea/constipation No recent weight changes No chest pain, no PND, no orthopnea No dizziness, blurred vision No thirst, no heat or cold intolerance Results Result Diagram: 07/17/16 0415 07/18/16 0688 Medications Medications Current Medications Famotidine (Pepcid Iv) 20 mg Q12 IV Last administered on 07/19/16 09:05; Admin Dose 20 MG; Start 06/28/16 at 21:00 Meperidine HCl (Demerol) 25 mg Q4H PRN IV shivering post hypothermia pro Last administered on 07/18/16 03:23; Admin Dose 25 MG; Start 06/29/16 at 14:30 Dicyclomine HCl (Bentyl) 20 mg Q6H PRN NGT Hiccups Last administered on 09:54; Admin Dose 20 MG; Start 06/30/16 at 06:30 Miscellaneous Information 1 ea NOTE XX ; Start 06/30/16 at 09:30 Atorvastatin Calcium (Lipitor) 80 mg DAILY PO Last administered on 07/19/16 09: 07; Admin Dose 80 MG; Start 06/30/16 at 09:30 Amiodarone HCl (Cordarone) 400 mg BID PO Last administered on 07/19/16 09:06; Admin Dose 400 MG; Start 07/01/16 at 11:00 Morphine Sulfate (morphine) 2 mg Q2H PRN IV FOR NON CARDIAC PAIN (4-10) Last administered on 07/17/16 10:13; Admin Dose 2 MG; Start 07/06/16 at 10:30 Ondansetron HCl (Zofran Inj) 4 mg Q4H PRN IV NAUSEA AND/OR VOMITING; Start at 10:30 Potassium Chloride (Potassium Chloride Pwd/Soln) 40 meq DAILY GTB Last administered on 07/19/16 09:05; Admin Dose 40 MEQ; Start 07/07/16 at 15:00 Guaifenesin (Robitussin Liquid Cup) 200 mg Q4H PRN PO COUGH Last administered on 07/12/16 17:16; Admin Dose 200 MG; Start 07/10/16 at 11:30 Phenol (Cepastat Lozenge) 1 lozenge Q1H PRN MT COUGH; Start 07/10/16 at 11:30 Lorazepam (Ativan) 1 mg Q4H PRN IV AGITATION; Start 07/11/16 at 13:00 Lisinopril (Zestril) 2.5 mg DAILY PO Last administered on 07/19/16 09:06; Admin Dose 2.5 MG; Start 07/12/16 at 09:00 Nystatin (Nystatin Susp) 5 ml QID PO Last administered on 07/19/16 09:05; Admin Dose 5 ML; Start 07/12/16 at 13:00 Haloperidol (Haldol) 1 mg BID PO Last administered on 07/19/16 09:05; Admin Dose 1 MG; Start 07/14/16 at 10:00 Aspirin (Ecotrin) 325 mg DAILY PO Last administered on 07/19/16 09:06; Admin Dose 325 MG; Start 07/16/16 at 09:00 Clopidogrel Bisulfate (plaVIX) 75 mg DAILY PO Last administered on 07/19/16 09: 06; Admin Dose 75 MG; Start 07/16/16 at 09:00 Acetaminophen (Tylenol Tab) 650 mg Q4H PRN PO NON-CARDIAC PAIN LEVEL 1-3; Start 07/15/16 at 11:30 Oxycodone/ Acetaminophen (Percocet (5/ 325)) 1 tab Q4H PRN PO REPORTED NON- CARDIAC PAIN 4-7 Last administered on 07/15/16 19:56; Admin Dose 1 TAB; Start at 11:30 Morphine Sulfate (morphine) 1 mg Q1H PRN IV PAIN NOT RELIEVED BY OTHERS Last administered on 07/15/16 12:41; Admin Dose 1 MG; Start 07/15/16 at 11:30 Al Hydrox/Mg Hydrox/Simethicone (Mag-Al Plus) 30 ml Q4H PRN PO GASTROINTESTINAL UPSET; Start 07/15/16 at 11:30 JANICE HARKINS MD July 19, 2016 10:23
[2016-07-19 10:32] LABS: ADD SCAN DIFF NO
[2016-07-19 10:36] LABS: BASOPHIL # 0.1 10^3/ul (0.0-0.1); EOSINOPHILS # 0.2 10^3/ul (0.0-0.5); EOSINOPHILS % 1.7 % (0.0-7.0); HEMATOCRIT 35.2 % (42.0-52.0); HEMOGLOBIN 11.8 g/dl (14.0-18.0); MEAN CORPUSCULAR HEMOGLOBIN 30.8 pg (29.0-33.0); MEAN CORPUSCULAR HGB CONC 33.5 g/dl (32.0-37.0); MEAN CORPUSCULAR VOLUME 91.9 fl (82.0-101.0); MEAN PLATELET VOLUME 9.2 fl (7.4-10.4); MONOCYTE # 0.7 10^3/ul (0.3-0.9); MONOCYTES % 6.5 % (0.0-11.0); NEUTROPHILS % 69.3 % (39.0-77.0); PLATELET COUNT 391 10^3/UL (140-415); RED BLOOD COUNT 3.83 10^6/ul (4.70-6.10); RED CELL DISTRIBUTION WIDTH 13.2 % (11.5-14.5); WHITE BLOOD COUNT 10.1 10^3/ul (4.8-10.8)
[2016-07-19 11:03] LABS: CALCIUM 9.7 mg/dl (8.4-10.2); CREATININE 1.05 mg/dl (0.61-1.24); POTASSIUM 4.5 mmol/L (3.5-5.1)
--- NOTE | 2016-07-19 12:26 | PN ---
Date/Time of Note Date/Time of Note DATE: 07/19/16 TIME: 12:22 Assessment/Plan VTE Prophylaxis VTE Prophylaxis Intervention: SCD's Lines/Catheters IV [facility] Saline Lock Urinary Cath still in place: No Assessment/Plan Chief Complaint/Hosp Course Assessment/Plan: 36 M with: 1. Status post ventricular fibrillation cardiac arrest with ROSC * s/p hypothermia protocol. * s/p LHC 07/06/16 with multivessel ds found. 2. S/p NSTEMI 2/2 severe multivessel CAD * S/p PCI with stent placement x1 to proximal ostial left anterior descending and x1 to proximal portion of the circumflex for chronic total occlusion 07/15/16 * s/p ballon pump - now off this ASA + Plavix - for external defibrillator per CV rec's - working on this, f/u CV rec's 3. Vent dependent respiratory failure secondary to cardiac arrest - s/p extubation 4. Shock likely septic with a cardiogenic component -resolved 5. Severe systolic dysfunction with EF of 15 to 20% 6. Pulmonary edema - resolved 7. Bilateral pneumonia, possibly from aspiration - resolved - resp cultures 07/09: amadou 8. Chronic Tobacco user 10. Acute kidney injury, resolved. 11. Hyperglycemia : A1C 5.7: resolved - ISS 12. Diarrhea - Cdiff neg * Replace electrolytes and closely monitor * Further workup and management per clinical course. Problems: Subjective 24 Hr Interval Summary Free Text/Dictation Pt ambulating, no acute events overnight. Seen by CV team. Exam/Review of Systems Vital Signs Vitals Vital Signs Date Time Temp Pulse Resp B/P Pulse Ox O2 Delivery O2 Flow Rate FiO2 07/19/16 12:10 80 07/19/16 11:55 97.9 18 105/56 100 07/18/16 11:00 Room Air 07/15/16 12:00 2.0 Intake and Output 07/18/16 07/18/16 07/19/16 15:00 23:00 07:00 Intake Total 250 ml 500 ml Output Total 0 ml 750 ml Balance 250 ml -250 ml Exam Constitutional: alert, oriented Eyes: PERRL Respiratory: clear to auscultation Cardiovascular: regular rate and rhythm, No murmurs/extra sounds Gastrointestinal: bowel sounds, non-tender, soft Neurological: lethargic Results Result Diagram: 07/19/16 1003 07/19/16 1003 Results 24 hrs Laboratory Tests Test 07/19/16 10:03 White Blood Count 10.1 Red Blood Count 3.83 L Hemoglobin 11.8 L Hematocrit 35.2 L Mean Corpuscular Volume 91.9 Mean Corpuscular Hemoglobin 30.8 Mean Corpuscular Hemoglobin Concent 33.5 Red Cell Distribution Width 13.2 Platelet Count 391 Mean Platelet Volume 9.2 Neutrophils % 69.3 Lymphocytes % 20.0 Monocytes % 6.5 Eosinophils % 1.7 Basophils % 1.0 Nucleated Red Blood Cells % 0.0 Neutrophils # 7.0 Lymphocytes # 2.0 Monocytes # 0.7 Eosinophils # 0.2 Basophils # 0.1 Nucleated Red Blood Cells # 0.0 Sodium Level 136 Potassium Level 4.5 Chloride Level 97 Carbon Dioxide Level 27 Anion Gap 17 H Blood Urea Nitrogen 30 H Creatinine 1.05 Glucose Level 158 Calcium Level 9.7 Medications Medications Current Medications Famotidine (Pepcid Iv) 20 mg Q12 IV Last administered on 07/19/16 09:05; Admin Dose 20 MG; Start 06/28/16 at 21:00 Meperidine HCl (Demerol) 25 mg Q4H PRN IV shivering post hypothermia pro Last administered on 07/18/16 03:23; Admin Dose 25 MG; Start 06/29/16 at 14:30 Dicyclomine HCl (Bentyl) 20 mg Q6H PRN NGT Hiccups Last administered on 09:54; Admin Dose 20 MG; Start 06/30/16 at 06:30 Miscellaneous Information 1 ea NOTE XX ; Start 06/30/16 at 09:30 Atorvastatin Calcium (Lipitor) 80 mg DAILY PO Last administered on 07/19/16 09: 07; Admin Dose 80 MG; Start 06/30/16 at 09:30 Amiodarone HCl (Cordarone) 400 mg BID PO Last administered on 07/19/16 09:06; Admin Dose 400 MG; Start 07/01/16 at 11:00 Morphine Sulfate (morphine) 2 mg Q2H PRN IV FOR NON CARDIAC PAIN (4-10) Last administered on 07/17/16 10:13; Admin Dose 2 MG; Start 07/06/16 at 10:30 Ondansetron HCl (Zofran Inj) 4 mg Q4H PRN IV NAUSEA AND/OR VOMITING; Start at 10:30 Potassium Chloride (Potassium Chloride Pwd/Soln) 40 meq DAILY GTB Last administered on 07/19/16 09:05; Admin Dose 40 MEQ; Start 07/07/16 at 15:00 Guaifenesin (Robitussin Liquid Cup) 200 mg Q4H PRN PO COUGH Last administered on 07/12/16 17:16; Admin Dose 200 MG; Start 07/10/16 at 11:30 Phenol (Cepastat Lozenge) 1 lozenge Q1H PRN MT COUGH; Start 07/10/16 at 11:30 Lorazepam (Ativan) 1 mg Q4H PRN IV AGITATION; Start 07/11/16 at 13:00 Lisinopril (Zestril) 2.5 mg DAILY PO Last administered on 07/19/16 09:06; Admin Dose 2.5 MG; Start 07/12/16 at 09:00 Nystatin (Nystatin Susp) 5 ml QID PO Last administered on 07/19/16 09:05; Admin Dose 5 ML; Start 07/12/16 at 13:00 Haloperidol (Haldol) 1 mg BID PO Last administered on 07/19/16 09:05; Admin Dose 1 MG; Start 07/14/16 at 10:00 Aspirin (Ecotrin) 325 mg DAILY PO Last administered on 07/19/16 09:06; Admin Dose 325 MG; Start 07/16/16 at 09:00 Clopidogrel Bisulfate (plaVIX) 75 mg DAILY PO Last administered on 07/19/16 09: 06; Admin Dose 75 MG; Start 07/16/16 at 09:00 Acetaminophen (Tylenol Tab) 650 mg Q4H PRN PO NON-CARDIAC PAIN LEVEL 1-3; Start 07/15/16 at 11:30 Oxycodone/ Acetaminophen (Percocet (5/ 325)) 1 tab Q4H PRN PO REPORTED NON- CARDIAC PAIN 4-7 Last administered on 07/15/16 19:56; Admin Dose 1 TAB; Start at 11:30 Morphine Sulfate (morphine) 1 mg Q1H PRN IV PAIN NOT RELIEVED BY OTHERS Last administered on 07/15/16 12:41; Admin Dose 1 MG; Start 07/15/16 at 11:30 Al Hydrox/Mg Hydrox/Simethicone (Mag-Al Plus) 30 ml Q4H PRN PO GASTROINTESTINAL UPSET; Start 07/15/16 at 11:30 BLACK CALVO July 19, 2016 12:26
[2016-07-19] MEDS ORDERED: SOD CHLORIDE 0.9% 500 ML IV ONE (15:30)
[2016-07-20] VITALS (45 sets, daily range): BP systolic 79–118; BP diastolic 46–67; PULSE 54–73; RESP 14–28
[2016-07-20] MEDS: MIDODRINE 5 MG TAB NGT SCH ×3 (00:22→13:19)
[2016-07-20] MEDS: FUROSEMIDE 40 MG INJ IV SCH (05:41)
[2016-07-20 05:57] LABS: ADD SCAN DIFF NO
[2016-07-20 05:59] LABS: BASOPHIL # 0.1 10^3/ul (0.0-0.1); EOSINOPHILS # 0.3 10^3/ul (0.0-0.5); EOSINOPHILS % 3.2 % (0.0-7.0); HEMATOCRIT 30.3 % (42.0-52.0); HEMOGLOBIN 10.6 g/dl (14.0-18.0); LYMPHOCYTES # 2.9 10^3/ul (0.8-2.9); LYMPHOCYTES % 27.5 % (15.0-51.0); MEAN CORPUSCULAR HEMOGLOBIN 32.1 pg (29.0-33.0); MEAN CORPUSCULAR VOLUME 91.8 fl (82.0-101.0); MEAN PLATELET VOLUME 8.7 fl (7.4-10.4); NEUTROPHIL # 6.1 10^3/ul (1.6-7.5); NEUTROPHILS % 57.3 % (39.0-77.0); PLATELET COUNT 379 10^3/UL (140-415); RED CELL DISTRIBUTION WIDTH 13.3 % (11.5-14.5); WHITE BLOOD COUNT 10.6 10^3/ul (4.8-10.8)
[2016-07-20 06:17] LABS: POTASSIUM 4.7 mmol/L (3.5-5.1)
[2016-07-20 06:20] LABS: CREATININE 1.09 mg/dl (0.61-1.24)
[2016-07-20] MEDS: ATORVASTATIN 80 MG TAB PO SCH (08:46)
[2016-07-20] MEDS: ASPIRIN (EC) 325 MG TAB PO SCH (08:47)
[2016-07-20] MEDS: AMIODARONE 200 MG TAB PO SCH ×2 (08:48→20:54)
[2016-07-20] MEDS: HALOPERIDOL 1 MG TAB PO SCH ×2 (08:48→20:53)
[2016-07-20] MEDS: FAMOTIDINE 20 MG INJ IV SCH ×2 (08:48→20:53)
[2016-07-20] MEDS: NYSTATIN SUSP 5 ML CUP PO SCH ×4 (08:48→20:53)
[2016-07-20] MEDS: CLOPIDOGREL 75 MG TAB PO SCH (08:48)
[2016-07-20] MEDS: LISINOPRIL 5 MG TAB PO SCH (08:50)
[2016-07-20] MEDS: POTASSIUM CHLORIDE 20 MEQ POWDER FOR ORAL SOLN GTB SCH (09:00)
--- NOTE | 2016-07-20 11:22 | PN ---
Date/Time of Note Date/Time of Note DATE: 07/20/16 TIME: 11:20 Assessment/Plan VTE Prophylaxis VTE Prophylaxis Intervention: SCD's Lines/Catheters IV Catheter Type (from [facility]): Peripheral IV Urinary Cath still in place: No Assessment/Plan Chief Complaint/Hosp Course Assessment/Plan: 36 M with: 1. Status post ventricular fibrillation cardiac arrest with ROSC * s/p hypothermia protocol. * s/p LHC 07/06/16 with multivessel ds found. 2. S/p NSTEMI 2/2 severe multivessel CAD * S/p PCI with stent placement x1 to proximal ostial left anterior descending and x1 to proximal portion of the circumflex for chronic total occlusion 07/15/16 * s/p ballon pump - now off this ASA + Plavix - for external defibrillator per CV rec's - working on this, f/u CV rec's 3. Vent dependent respiratory failure secondary to cardiac arrest - s/p extubation 4. Shock likely septic with a cardiogenic component -resolved 5. Severe systolic dysfunction with EF of 15 to 20% 6. Pulmonary edema - resolved 7. Bilateral pneumonia, possibly from aspiration - resolved - resp cultures 07/09: amadou 8. Chronic Tobacco user 10. Acute kidney injury, resolved. 11. Hyperglycemia : A1C 5.7: resolved - ISS 12. Diarrhea - Cdiff neg * Replace electrolytes and closely monitor * Further workup and management per clinical course. Critical care time today = 40 min. Problems: Subjective 24 Hr Interval Summary Free Text/Dictation Pt transferred to ICU yesterday b/c of dizziness and low bp. With some blurry vision this AM, but less cp. Exam/Review of Systems Vital Signs Vitals Vital Signs Date Time Temp Pulse Resp B/P Pulse Ox O2 Delivery O2 Flow Rate FiO2 07/20/16 10:30 55 19 88/53 98 Room Air 07/20/16 08:00 98.0 Intake and Output 07/19/16 07/19/16 07/20/16 15:00 23:00 07:00 Intake Total 400 ml 540 ml Output Total 0 ml 800 ml Balance 400 ml -260 ml Exam Constitutional: alert, oriented Eyes: PERRL Respiratory: clear to auscultation Cardiovascular: regular rate and rhythm, No murmurs/extra sounds Gastrointestinal: bowel sounds, non-tender, soft Neurological: lethargic Results Result Diagram: 07/20/16 0532 07/20/1632 Results 24 hrs Laboratory Tests Test 07/20/16 05:32 White Blood Count 10.6 Red Blood Count 3.30 L Hemoglobin 10.6 L Hematocrit 30.3 L Mean Corpuscular Volume 91.8 Mean Corpuscular Hemoglobin 32.1 Mean Corpuscular Hemoglobin Concent 35.0 Red Cell Distribution Width 13.3 Platelet Count 379 Mean Platelet Volume 8.7 Neutrophils % 57.3 Lymphocytes % 27.5 Monocytes % 9.0 Eosinophils % 3.2 Basophils % 1.0 Nucleated Red Blood Cells % 0.0 Neutrophils # 6.1 Lymphocytes # 2.9 Monocytes # 1.0 H Eosinophils # 0.3 Basophils # 0.1 Nucleated Red Blood Cells # 0.0 Sodium Level 136 Potassium Level 4.7 Chloride Level 99 Carbon Dioxide Level 25 Anion Gap 17 H Blood Urea Nitrogen 29 H Creatinine 1.09 Glucose Level 91 # Calcium Level 9.0 Medications Medications Current Medications Famotidine (Pepcid Iv) 20 mg Q12 IV Last administered on 07/20/16 08:48; Admin Dose 20 MG; Start 06/28/16 at 21:00 Meperidine HCl (Demerol) 25 mg Q4H PRN IV shivering post hypothermia pro Last administered on 07/18/16 03:23; Admin Dose 25 MG; Start 06/29/16 at 14:30 Dicyclomine HCl (Bentyl) 20 mg Q6H PRN NGT Hiccups Last administered on 09:54; Admin Dose 20 MG; Start 06/30/16 at 06:30 Miscellaneous Information 1 ea NOTE XX ; Start 06/30/16 at 09:30 Atorvastatin Calcium (Lipitor) 80 mg DAILY PO Last administered on 07/20/16 08 :46; Admin Dose 80 MG; Start 06/30/16 at 09:30 Amiodarone HCl (Cordarone) 400 mg BID PO Last administered on 07/20/16 08:48; Admin Dose 400 MG; Start 07/01/16 at 11:00 Morphine Sulfate (morphine) 2 mg Q2H PRN IV FOR NON CARDIAC PAIN (4-10) Last administered on 07/17/16 10:13; Admin Dose 2 MG; Start 07/06/16 at 10:30 Ondansetron HCl (Zofran Inj) 4 mg Q4H PRN IV NAUSEA AND/OR VOMITING; Start at 10:30 Potassium Chloride (Potassium Chloride Pwd/Soln) 40 meq DAILY GTB Last administered on 07/19/16 09:05; Admin Dose 40 MEQ; Start 07/07/16 at 15:00 Guaifenesin (Robitussin Liquid Cup) 200 mg Q4H PRN PO COUGH Last administered on 07/12/16 17:16; Admin Dose 200 MG; Start 07/10/16 at 11:30 Phenol (Cepastat Lozenge) 1 lozenge Q1H PRN MT COUGH; Start 07/10/16 at 11:30 Lorazepam (Ativan) 1 mg Q4H PRN IV AGITATION; Start 07/11/16 at 13:00 Lisinopril (Zestril) 2.5 mg DAILY PO Last administered on 07/19/16 09:06; Admin Dose 2.5 MG; Start 07/12/16 at 09:00 Nystatin (Nystatin Susp) 5 ml QID PO Last administered on 07/20/16 08:48; Admin Dose 5 ML; Start 07/12/16 at 13:00 Haloperidol (Haldol) 1 mg BID PO Last administered on 07/20/16 08:48; Admin Dose 1 MG; Start 07/14/16 at 10:00 Aspirin (Ecotrin) 325 mg DAILY PO Last administered on 07/20/16 08:47; Admin Dose 325 MG; Start 07/16/16 at 09:00 Clopidogrel Bisulfate (plaVIX) 75 mg DAILY PO Last administered on 07/20/16 08 :48; Admin Dose 75 MG; Start 07/16/16 at 09:00 Acetaminophen (Tylenol Tab) 650 mg Q4H PRN PO NON-CARDIAC PAIN LEVEL 1-3; Start 07/15/16 at 11:30 Oxycodone/ Acetaminophen (Percocet (5/ 325)) 1 tab Q4H PRN PO REPORTED NON- CARDIAC PAIN 4-7 Last administered on 07/15/16 19:56; Admin Dose 1 TAB; Start at 11:30 Morphine Sulfate (morphine) 1 mg Q1H PRN IV PAIN NOT RELIEVED BY OTHERS Last administered on 07/15/16 12:41; Admin Dose 1 MG; Start 07/15/16 at 11:30 Al Hydrox/Mg Hydrox/Simethicone (Mag-Al Plus) 30 ml Q4H PRN PO GASTROINTESTINAL UPSET; Start 07/15/16 at 11:30 Midodrine (Proamatine) 10 mg TID@,,17 NGT Last administered on 07/20/16t 08 :47; Admin Dose 10 MG; Start 07/20/16 at 00:30 BLACK CALVO July 20, 2016 11:22
--- NOTE | 2016-07-20 13:51 | CONS ---
Date/Time of Note Date/Time of Note DATE: 07/20/16 TIME: 13:47 Assessment/Plan Assessment/Plan Chief Complaint/Hosp Course IMPRESSION: 1. Positive troponin, consistent with a non-ST elevation myocardial infarction. -Peaked at 40 and now downtrending significantly. Now post-op s/p diagnostic LHC 07/06 with 3vd 100% RCA/LCX both seen via collateral flow and 90-95% prox LAD. Now Post-op s/p PTCA/stent x LAD x 1 to LCX with PTCA/stent 2. Status post cardiac arrest. 3. Cardiomyopathy, with a severely depressed left ventricular ejection fraction of approximately 15% to 20% by echo on this admission. s/p repeat Echo 07/06 limited EF last 25-30% 4. Respiratory failure. Status post intubation. 5. Ventricular fibrillation arrest, witnessed, status post defibrillator x1. 6. Encephalopathy. 7. Leukocytosis. 8. Anemia. 9. Hypotension-transferred to ICU 10.Fevers Recc: -Tele -Follow for any recurrent bleeding -Continue PO amiodarone -Continue abx's and f/u cx data -Continue plavix/asa s/p PTCA/stent -D/C midodrine as is pure afterload and follow BP closely and will hold lasix diuresis at this time -Follow MS closely Problems: Consultation Date/Type/Reason Admit Date/Time Jun 28, 2016 at 20:48 Initial Consult Date 06/29/16 Type of Consultation: Cardiology Reason for Consultation cardiac arrest/cardiomyopathy Referring Provider: CHRISTINA JOSEPH Exam/Review of Systems Vital Signs Vitals Vital Signs Date Time Temp Pulse Resp B/P Pulse Ox O2 Delivery O2 Flow Rate FiO2 07/20/16 13:30 66 17 96/46 98 Room Air 07/20/16 12:00 97.9 Intake and Output 07/19/16 07/19/16 07/20/16 15:00 23:00 07:00 Intake Total 400 ml 540 ml Output Total 0 ml 800 ml Balance 400 ml -260 ml Exam Review of Systems: CONSTITUTIONAL: No fevers, chills. PULMONARY: No sob CARDIOVASCULAR: No chest pain/palpitations GASTROINTESTINAL: No nausea/vomiting. GENITOURINARY: No hematuria/dysuria. MUSCULOSKELETAL: No myagias/arthalgias. PSYCHIATRIC: The patient denies depression. NEUROLOGIC: No weakness Constitutional: alert Psych: no complaints Head: normocephalic ENMT: mucosa pink and moist Neck: jvd (9 cm water), supple Respiratory: diminished breath sounds Cardiovascular: regular rate and rhythm Gastrointestinal: non-tender, soft Musculoskeletal: muscle tone (normal) Extremities: edema (none) Neurological: other (encephalopathic) Results Result Diagram: 07/20/16 0532 07/20/16 0532 Results 24 hrs Laboratory Tests Test 07/20/16 05:32 White Blood Count 10.6 Red Blood Count 3.30 L Hemoglobin 10.6 L Hematocrit 30.3 L Mean Corpuscular Volume 91.8 Mean Corpuscular Hemoglobin 32.1 Mean Corpuscular Hemoglobin Concent 35.0 Red Cell Distribution Width 13.3 Platelet Count 379 Mean Platelet Volume 8.7 Neutrophils % 57.3 Lymphocytes % 27.5 Monocytes % 9.0 Eosinophils % 3.2 Basophils % 1.0 Nucleated Red Blood Cells % 0.0 Neutrophils # 6.1 Lymphocytes # 2.9 Monocytes # 1.0 H Eosinophils # 0.3 Basophils # 0.1 Nucleated Red Blood Cells # 0.0 Sodium Level 136 Potassium Level 4.7 Chloride Level 99 Carbon Dioxide Level 25 Anion Gap 17 H Blood Urea Nitrogen 29 H Creatinine 1.09 Glucose Level 91 # Calcium Level 9.0 Medications Medications Current Medications Famotidine (Pepcid Iv) 20 mg Q12 IV Last administered on 07/20/16 08:48; Admin Dose 20 MG; Start 06/28/16 at 21:00 Meperidine HCl (Demerol) 25 mg Q4H PRN IV shivering post hypothermia pro Last administered on 07/18/16 03:23; Admin Dose 25 MG; Start 06/29/16 at 14:30 Dicyclomine HCl (Bentyl) 20 mg Q6H PRN NGT Hiccups Last administered on 09:54; Admin Dose 20 MG; Start 06/30/16 at 06:30 Miscellaneous Information 1 ea NOTE XX ; Start 06/30/16 at 09:30 Atorvastatin Calcium (Lipitor) 80 mg DAILY PO Last administered on 07/20/16 08 :46; Admin Dose 80 MG; Start 06/30/16 at 09:30 Amiodarone HCl (Cordarone) 400 mg BID PO Last administered on 07/20/16 08:48; Admin Dose 400 MG; Start 07/01/16 at 11:00 Morphine Sulfate (morphine) 2 mg Q2H PRN IV FOR NON CARDIAC PAIN (4-10) Last administered on 07/17/16 10:13; Admin Dose 2 MG; Start 07/06/16 at 10:30 Ondansetron HCl (Zofran Inj) 4 mg Q4H PRN IV NAUSEA AND/OR VOMITING; Start at 10:30 Potassium Chloride (Potassium Chloride Pwd/Soln) 40 meq DAILY GTB Last administered on 07/19/16 09:05; Admin Dose 40 MEQ; Start 07/07/16 at 15:00 Guaifenesin (Robitussin Liquid Cup) 200 mg Q4H PRN PO COUGH Last administered on 07/12/16 17:16; Admin Dose 200 MG; Start 07/10/16 at 11:30 Phenol (Cepastat Lozenge) 1 lozenge Q1H PRN MT COUGH; Start 07/10/16 at 11:30 Lorazepam (Ativan) 1 mg Q4H PRN IV AGITATION; Start 07/11/16 at 13:00 Lisinopril (Zestril) 2.5 mg DAILY PO Last administered on 07/19/16 09:06; Admin Dose 2.5 MG; Start 07/12/16 at 09:00 Nystatin (Nystatin Susp) 5 ml QID PO Last administered on 07/20/16 13:18; Admin Dose 5 ML; Start 07/12/16 at 13:00 Haloperidol (Haldol) 1 mg BID PO Last administered on 07/20/16 08:48; Admin Dose 1 MG; Start 07/14/16 at 10:00 Aspirin (Ecotrin) 325 mg DAILY PO Last administered on 07/20/16 08:47; Admin Dose 325 MG; Start 07/16/16 at 09:00 Clopidogrel Bisulfate (plaVIX) 75 mg DAILY PO Last administered on 07/20/16 08 :48; Admin Dose 75 MG; Start 07/16/16 at 09:00 Acetaminophen (Tylenol Tab) 650 mg Q4H PRN PO NON-CARDIAC PAIN LEVEL 1-3; Start 07/15/16 at 11:30 Oxycodone/ Acetaminophen (Percocet (5/ 325)) 1 tab Q4H PRN PO REPORTED NON- CARDIAC PAIN 4-7 Last administered on 07/15/16 19:56; Admin Dose 1 TAB; Start at 11:30 Morphine Sulfate (morphine) 1 mg Q1H PRN IV PAIN NOT RELIEVED BY OTHERS Last administered on 07/15/16 12:41; Admin Dose 1 MG; Start 07/15/16 at 11:30 Al Hydrox/Mg Hydrox/Simethicone (Mag-Al Plus) 30 ml Q4H PRN PO GASTROINTESTINAL UPSET; Start 07/15/16 at 11:30 Midodrine (Proamatine) 10 mg TID@,,17 NGT Last administered on 07/20/16 13 :19; Admin Dose 10 MG; Start 07/20/16 at 00:30 ELIGIO TYSON July 20, 2016 13:51
--- NOTE | 2016-07-20 15:26 | RADRPT ---
PROCEDURE: XR Chest. CLINICAL INDICATION: Congestive heart failure. TECHNIQUE: Chest x-ray, single view. COMPARISON: 07/17/2016. FINDINGS: The cardiac silhouette is slightly magnified and unchanged in size. Pulmonary vascularity is within normal limits. Improved expansion of the lungs is observed. Hazy opacification of the pulmonary p arenchyma has near completely resolved. There is no focal pulmonary parenchymal opacification. Ske letal structures and upper abdomen are unremarkable. IMPRESSION: Near complete resolution of hazy opacification of the pulmonary parenchyma. RPTAT: HLST .Ira Abdi MD, Date Time Electronically viewed and signed by .Ira Abdi MD, on 07/20/2016 15:26 .T/
[2016-07-21] VITALS (24 sets, daily range): BP systolic 89–111; BP diastolic 46–68; PULSE 50–94; RESP 17–27
[2016-07-21 06:13] LABS: ADD SCAN DIFF NO
[2016-07-21 06:16] LABS: BASOPHIL # 0.1 10^3/ul (0.0-0.1); BASOPHILS % 1.1 % (0.0-2.0); EOSINOPHILS # 0.3 10^3/ul (0.0-0.5); EOSINOPHILS % 3.3 % (0.0-7.0); HEMATOCRIT 30.9 % (42.0-52.0); HEMOGLOBIN 10.4 g/dl (14.0-18.0); LYMPHOCYTES # 2.9 10^3/ul (0.8-2.9); LYMPHOCYTES % 33.6 % (15.0-51.0); MEAN CORPUSCULAR HEMOGLOBIN 31.2 pg (29.0-33.0); MEAN CORPUSCULAR HGB CONC 33.7 g/dl (32.0-37.0); MEAN CORPUSCULAR VOLUME 92.8 fl (82.0-101.0); MONOCYTE # 0.7 10^3/ul (0.3-0.9); MONOCYTES % 7.7 % (0.0-11.0); NEUTROPHIL # 4.6 10^3/ul (1.6-7.5); NEUTROPHILS % 52.8 % (39.0-77.0); PLATELET COUNT 354 10^3/UL (140-415); RED BLOOD COUNT 3.33 10^6/ul (4.70-6.10); RED CELL DISTRIBUTION WIDTH 13.4 % (11.5-14.5); WHITE BLOOD COUNT 8.7 10^3/ul (4.8-10.8)
[2016-07-21 07:10] LABS: CALCIUM 9.2 mg/dl (8.4-10.2); CREATININE 0.96 mg/dl (0.61-1.24); POTASSIUM 4.7 mmol/L (3.5-5.1)
--- NOTE | 2016-07-21 08:39 | RADRPT ---
Vent Rate: 66 bpm RR Interval: 0 msec MI Interval: 178 msec QRS Duration: 90 msec QT Interval: 486 msec QTC Interval: 509 msec P-R-T [place]: 37 - 42 - -47 degrees Normal sinus rhythm Possible Inferior infarct , age undetermined N/S ST/T changes in inferolateral leads Prolonged QT Abnormal ECG Electronically Signed By: Pranay Griffin [id number]
[2016-07-21] MEDS: AMIODARONE 200 MG TAB PO SCH ×2 (08:47→22:06)
[2016-07-21] MEDS: FAMOTIDINE 20 MG INJ IV SCH ×2 (08:47→22:05)
[2016-07-21] MEDS: ATORVASTATIN 80 MG TAB PO SCH (08:49)
[2016-07-21] MEDS: HALOPERIDOL 1 MG TAB PO SCH ×2 (08:49→22:06)
[2016-07-21] MEDS: ASPIRIN (EC) 325 MG TAB PO SCH (08:49)
[2016-07-21] MEDS: NYSTATIN SUSP 5 ML CUP PO SCH ×4 (08:50→22:05)
[2016-07-21] MEDS: CLOPIDOGREL 75 MG TAB PO SCH (08:50)
[2016-07-21] MEDS: LISINOPRIL 5 MG TAB PO SCH (08:51)
--- NOTE | 2016-07-21 12:14 | PN ---
Date/Time of Note Date/Time of Note DATE: 07/21/16 TIME: 12:13 Assessment/Plan VTE Prophylaxis VTE Prophylaxis Intervention: SCD's Lines/Catheters IV C[facility]ter Type ([facility] [place] Urinary Cath still in place: No Assessment/Plan Chief Complaint/Hosp Course Assessment/Plan: 36 M with: 1. Status post ventricular fibrillation cardiac arrest with ROSC * s/p hypothermia protocol. * s/p LHC 07/06/16 with multivessel ds found. 2. S/p NSTEMI 2/2 severe multivessel CAD * S/p PCI with stent placement x1 to proximal ostial left anterior descending and x1 to proximal portion of the circumflex for chronic total occlusion 07/15/16 * s/p ballon pump - now off this ASA + Plavix -now on external defibrillator per CV rec's - monitor, f/u CV rec's 3. Vent dependent respiratory failure secondary to cardiac arrest - s/p extubation 4. Shock likely septic with a cardiogenic component -resolved 5. Severe systolic dysfunction with EF of 15 to 20% 6. Pulmonary edema - resolved 7. Bilateral pneumonia, possibly from aspiration - resolved - resp cultures 07/09: amadou 8. Chronic Tobacco user 10. Acute kidney injury, resolved. 11. Hyperglycemia : A1C 5.7: resolved - ISS 12. Diarrhea - Cdiff neg * Replace electrolytes and closely monitor * Further workup and management per clinical course. Problems: Subjective 24 Hr Interval Summary Free Text/Dictation Pt had external defib placed, no acute events overnight. Exam/Review of Systems Vital Signs Vitals Vital Signs Date Time Temp Pulse Resp B/P Pulse Ox O2 Delivery O2 Flow Rate FiO2 07/21/16 11:00 70 22 98/58 100 Room Air 07/21/16 08:00 98.2 Intake and Output 07/20/16 07/20/16 07/21/16 15:00 23:00 07:00 Intake Total 420 ml 1240 ml Output Total 350 ml 750 ml Balance 70 ml 490 ml Exam Constitutional: alert, oriented Eyes: PERRL Respiratory: clear to auscultation Cardiovascular: regular rate and rhythm, No murmurs/extra sounds Gastrointestinal: bowel sounds, non-tender, soft Neurological: lethargic Results Result Diagram: 07/21/16 0535 07/21/16 0535 Results 24 hrs Laboratory Tests Test 07/21/16 05:35 White Blood Count 8.7 Red Blood Count 3.33 L Hemoglobin 10.4 L Hematocrit 30.9 L Mean Corpuscular Volume 92.8 Mean Corpuscular Hemoglobin 31.2 Mean Corpuscular Hemoglobin Concent 33.7 Red Cell Distribution Width 13.4 Platelet Count 354 Mean Platelet Volume 9.0 Neutrophils % 52.8 Lymphocytes % 33.6 Monocytes % 7.7 Eosinophils % 3.3 Basophils % 1.1 Nucleated Red Blood Cells % 0.0 Neutrophils # 4.6 Lymphocytes # 2.9 Monocytes # 0.7 Eosinophils # 0.3 Basophils # 0.1 Nucleated Red Blood Cells # 0.0 Sodium Level 134 L Potassium Level 4.7 Chloride Level 103 Carbon Dioxide Level 25 Anion Gap 11 Blood Urea Nitrogen 21 H Creatinine 0.96 Glucose Level 88 Calcium Level 9.2 Medications Medications Current Medications Famotidine (Pepcid Iv) 20 mg Q12 IV Last administered on 07/21/16 08:47; Admin Dose 20 MG; Start 06/28/16 at 21:00 Meperidine HCl (Demerol) 25 mg Q4H PRN IV shivering post hypothermia pro Last administered on 07/18/16 03:23; Admin Dose 25 MG; Start 06/29/16 at 14:30 Dicyclomine HCl (Bentyl) 20 mg Q6H PRN NGT Hiccups Last administered on 09:54; Admin Dose 20 MG; Start 06/30/16 at 06:30 Miscellaneous Information 1 ea NOTE XX ; Start 06/30/16 at 09:30 Atorvastatin Calcium (Lipitor) 80 mg DAILY PO Last administered on 07/21/16 08 :49; Admin Dose 80 MG; Start 06/30/16 at 09:30 Amiodarone HCl (Cordarone) 400 mg BID PO Last administered on 07/21/16 08:47; Admin Dose 400 MG; Start 07/01/16 at 11:00 Morphine Sulfate (morphine) 2 mg Q2H PRN IV FOR NON CARDIAC PAIN (4-10) Last administered on 07/17/16 10:13; Admin Dose 2 MG; Start 07/06/16 at 10:30 Ondansetron HCl (Zofran Inj) 4 mg Q4H PRN IV NAUSEA AND/OR VOMITING; Start at 10:30 Guaifenesin (Robitussin Liquid Cup) 200 mg Q4H PRN PO COUGH Last administered on 07/12/16 17:16; Admin Dose 200 MG; Start 07/10/16 at 11:30 Phenol (Cepastat Lozenge) 1 lozenge Q1H PRN MT COUGH; Start 07/10/16 at 11:30 Lorazepam (Ativan) 1 mg Q4H PRN IV AGITATION; Start 07/11/16 at 13:00 Lisinopril (Zestril) 2.5 mg DAILY PO Last administered on 07/19/16 09:06; Admin Dose 2.5 MG; Start 07/12/16 at 09:00 Nystatin (Nystatin Susp) 5 ml QID PO Last administered on 07/21/16 08:50; Admin Dose 5 ML; Start 07/12/16 at 13:00 Haloperidol (Haldol) 1 mg BID PO Last administered on 07/21/16 08:49; Admin Dose 1 MG; Start 07/14/16 at 10:00 Aspirin (Ecotrin) 325 mg DAILY PO Last administered on 07/21/16 08:49; Admin Dose 325 MG; Start 07/16/16 at 09:00 Clopidogrel Bisulfate (plaVIX) 75 mg DAILY PO Last administered on 07/21/16 08 :50; Admin Dose 75 MG; Start 07/16/16 at 09:00 Acetaminophen (Tylenol Tab) 650 mg Q4H PRN PO NON-CARDIAC PAIN LEVEL 1-3; Start 07/15/16 at 11:30 Oxycodone/ Acetaminophen (Percocet (5/ 325)) 1 tab Q4H PRN PO REPORTED NON- CARDIAC PAIN 4-7 Last administered on 07/15/16 19:56; Admin Dose 1 TAB; Start at 11:30 Morphine Sulfate (morphine) 1 mg Q1H PRN IV PAIN NOT RELIEVED BY OTHERS Last administered on 07/15/16 12:41; Admin Dose 1 MG; Start 07/15/16 at 11:30 Al Hydrox/Mg Hydrox/Simethicone (Mag-Al Plus) 30 ml Q4H PRN PO GASTROINTESTINAL UPSET; Start 07/15/16 at 11:30 Furosemide (Lasix) 40 mg DAILY IV ; Start 07/22/16 at 09:00 BLACK CALVO July 21, 2016 12:14
--- NOTE | 2016-07-21 13:43 | CONS ---
Date/Time of Note Date/Time of Note DATE: 07/21/16 TIME: 13:40 Assessment/Plan Assessment/Plan Chief Complaint/Hosp Course IMPRESSION: 1. Positive troponin, consistent with a non-ST elevation myocardial infarction. -Peaked at 40 and now downtrending significantly. Now post-op s/p diagnostic LHC 07/06 with 3vd 100% RCA/LCX both seen via collateral flow and 90-95% prox LAD. Now Post-op s/p PTCA/stent x LAD x 1 to LCX with PTCA/stent 2. Status post cardiac arrest. 3. Cardiomyopathy, with a severely depressed left ventricular ejection fraction of approximately 15% to 20% by echo on this admission. s/p repeat Echo 07/06 limited EF last 25-30% 4. Respiratory failure. Status post intubation. 5. Ventricular fibrillation arrest, witnessed, status post defibrillator x1. 6. Encephalopathy. 7. Leukocytosis. 8. Anemia. 9. Hypotension-transferred to ICU 10.Fevers Recc: -Tele -Follow for any recurrent bleeding -Continue PO amiodarone -Continue abx's and f/u cx data -Continue plavix/asa s/p PTCA/stent -Follow MS closely -Continue daily lasix -Zestril as tolerated only Problems: Consultation Date/Type/Reason Admit Date/Time Jun 28, 2016 at 20:48 Initial Consult Date 06/29/16 Type of Consultation: Cardiology Referring Provider: CHRISTINA JOSEPH Exam/Review of Systems Vital Signs Vitals Vital Signs Date Time Temp Pulse Resp B/P Pulse Ox O2 Delivery O2 Flow Rate FiO2 07/21/16 12:47 69 07/21/16 11:00 22 98/58 100 Room Air 07/21/16 08:00 98.2 Intake and Output 07/20/16 07/20/16 07/21/16 15:00 23:00 07:00 Intake Total 420 ml 1240 ml Output Total 350 ml 750 ml Balance 70 ml 490 ml Exam Review of Systems: CONSTITUTIONAL: No fevers, chills. PULMONARY: No sob CARDIOVASCULAR: No chest pain/palpitations GASTROINTESTINAL: No nausea/vomiting. GENITOURINARY: No hematuria/dysuria. MUSCULOSKELETAL: No myagias/arthalgias. PSYCHIATRIC: The patient denies depression. NEUROLOGIC: Somewhat confused Constitutional: alert Head: normocephalic ENMT: mucosa pink and moist Neck: jvd, supple Respiratory: No diminished breath sounds Cardiovascular: regular rate and rhythm Gastrointestinal: non-tender, soft Musculoskeletal: muscle tone Extremities: edema (trace/B) Neurological: lethargic (No focal deficits) Results Result Diagram: 07/21/16 0535 07/21/16 0535 Results 24 hrs Laboratory Tests Test 07/21/16 05:35 White Blood Count 8.7 Red Blood Count 3.33 L Hemoglobin 10.4 L Hematocrit 30.9 L Mean Corpuscular Volume 92.8 Mean Corpuscular Hemoglobin 31.2 Mean Corpuscular Hemoglobin Concent 33.7 Red Cell Distribution Width 13.4 Platelet Count 354 Mean Platelet Volume 9.0 Neutrophils % 52.8 Lymphocytes % 33.6 Monocytes % 7.7 Eosinophils % 3.3 Basophils % 1.1 Nucleated Red Blood Cells % 0.0 Neutrophils # 4.6 Lymphocytes # 2.9 Monocytes # 0.7 Eosinophils # 0.3 Basophils # 0.1 Nucleated Red Blood Cells # 0.0 Sodium Level 134 L Potassium Level 4.7 Chloride Level 103 Carbon Dioxide Level 25 Anion Gap 11 Blood Urea Nitrogen 21 H Creatinine 0.96 Glucose Level 88 Calcium Level 9.2 Medications Medications Current Medications Famotidine (Pepcid Iv) 20 mg Q12 IV Last administered on 07/21/16 08:47; Admin Dose 20 MG; Start 06/28/16 at 21:00 Meperidine HCl (Demerol) 25 mg Q4H PRN IV shivering post hypothermia pro Last administered on 07/18/16 03:23; Admin Dose 25 MG; Start 06/29/16 at 14:30 Dicyclomine HCl (Bentyl) 20 mg Q6H PRN NGT Hiccups Last administered on 09:54; Admin Dose 20 MG; Start 06/30/16 at 06:30 Miscellaneous Information 1 ea NOTE XX ; Start 06/30/16 at 09:30 Atorvastatin Calcium (Lipitor) 80 mg DAILY PO Last administered on 07/21/16 08 :49; Admin Dose 80 MG; Start 06/30/16 at 09:30 Amiodarone HCl (Cordarone) 400 mg BID PO Last administered on 07/21/16 08:47; Admin Dose 400 MG; Start 07/01/16 at 11:00 Morphine Sulfate (morphine) 2 mg Q2H PRN IV FOR NON CARDIAC PAIN (4-10) Last administered on 07/17/16 10:13; Admin Dose 2 MG; Start 07/06/16 at 10:30 Ondansetron HCl (Zofran Inj) 4 mg Q4H PRN IV NAUSEA AND/OR VOMITING; Start at 10:30 Guaifenesin (Robitussin Liquid Cup) 200 mg Q4H PRN PO COUGH Last administered on 07/12/16 17:16; Admin Dose 200 MG; Start 07/10/16 at 11:30 Phenol (Cepastat Lozenge) 1 lozenge Q1H PRN MT COUGH; Start 07/10/16 at 11:30 Lorazepam (Ativan) 1 mg Q4H PRN IV AGITATION; Start 07/11/16 at 13:00 Lisinopril (Zestril) 2.5 mg DAILY PO Last administered on 07/19/16 09:06; Admin Dose 2.5 MG; Start 07/12/16 at 09:00 Nystatin (Nystatin Susp) 5 ml QID PO Last administered on 07/21/16 13:08; Admin Dose 5 ML; Start 07/12/16 at 13:00 Haloperidol (Haldol) 1 mg BID PO Last administered on 07/21/16 08:49; Admin Dose 1 MG; Start 07/14/16 at 10:00 Aspirin (Ecotrin) 325 mg DAILY PO Last administered on 07/21/16 08:49; Admin Dose 325 MG; Start 07/16/16 at 09:00 Clopidogrel Bisulfate (plaVIX) 75 mg DAILY PO Last administered on 07/21/16 08 :50; Admin Dose 75 MG; Start 07/16/16 at 09:00 Acetaminophen (Tylenol Tab) 650 mg Q4H PRN PO NON-CARDIAC PAIN LEVEL 1-3; Start 07/15/16 at 11:30 Oxycodone/ Acetaminophen (Percocet (5/ 325)) 1 tab Q4H PRN PO REPORTED NON- CARDIAC PAIN 4-7 Last administered on 07/15/16 19:56; Admin Dose 1 TAB; Start at 11:30 Morphine Sulfate (morphine) 1 mg Q1H PRN IV PAIN NOT RELIEVED BY OTHERS Last administered on 07/15/16t 12:41; Admin Dose 1 MG; Start 07/15/16 at 11:30 Al Hydrox/Mg Hydrox/Simethicone (Mag-Al Plus) 30 ml Q4H PRN PO GASTROINTESTINAL UPSET; Start 07/15/16 at 11:30 Furosemide (Lasix) 40 mg DAILY IV ; Start 07/22/16 at 09:00 ELIGIO TYSON July 21, 2016 13:43
[2016-07-22] VITALS (12 sets, daily range): BP systolic 99–109; BP diastolic 54–67; PULSE 52–75; RESP 17–19
[2016-07-22] MEDS: FAMOTIDINE 20 MG INJ IV SCH ×2 (08:11→21:00)
[2016-07-22] MEDS: FUROSEMIDE 40 MG INJ IV SCH (08:15)
[2016-07-22] MEDS: CLOPIDOGREL 75 MG TAB PO SCH (08:16)
[2016-07-22] MEDS: AMIODARONE 200 MG TAB PO SCH ×2 (08:17→21:00)
[2016-07-22] MEDS: ASPIRIN (EC) 325 MG TAB PO SCH (08:18)
[2016-07-22] MEDS: HALOPERIDOL 1 MG TAB PO SCH ×2 (08:21→21:00)
[2016-07-22] MEDS: ATORVASTATIN 80 MG TAB PO SCH (08:23)
[2016-07-22] MEDS: NYSTATIN SUSP 5 ML CUP PO SCH ×4 (08:28→21:01)
[2016-07-22] MEDS: LISINOPRIL 5 MG TAB PO SCH (08:31)
[2016-07-22 10:27] LABS: ADD SCAN DIFF NO; BASOPHIL # 0.1 10^3/ul (0.0-0.1); BASOPHILS % 0.9 % (0.0-2.0); EOSINOPHILS # 0.1 10^3/ul (0.0-0.5); EOSINOPHILS % 0.8 % (0.0-7.0); HEMATOCRIT 34.8 % (42.0-52.0); HEMOGLOBIN 11.3 g/dl (14.0-18.0); LYMPHOCYTES # 2.5 10^3/ul (0.8-2.9); LYMPHOCYTES % 20.4 % (15.0-51.0); MEAN CORPUSCULAR HEMOGLOBIN 30.6 pg (29.0-33.0); MEAN CORPUSCULAR HGB CONC 32.5 g/dl (32.0-37.0); MEAN CORPUSCULAR VOLUME 94.3 fl (82.0-101.0); MEAN PLATELET VOLUME 8.9 fl (7.4-10.4); MONOCYTE # 0.7 10^3/ul (0.3-0.9); MONOCYTES % 5.4 % (0.0-11.0); NEUTROPHIL # 8.8 10^3/ul (1.6-7.5); NEUTROPHILS % 71.4 % (39.0-77.0); PLATELET COUNT 406 10^3/UL (140-415); RED BLOOD COUNT 3.69 10^6/ul (4.70-6.10); RED CELL DISTRIBUTION WIDTH 13.6 % (11.5-14.5); WHITE BLOOD COUNT 12.3 10^3/ul (4.8-10.8)
[2016-07-22 10:45] LABS: POTASSIUM 3.7 mmol/L (3.5-5.1)
[2016-07-22 10:48] LABS: CALCIUM 9.5 mg/dl (8.4-10.2)
--- NOTE | 2016-07-22 10:58 | PN ---
Date/Time of Note Date/Time of Note DATE: 07/22/16 TIME: 10:54 Assessment/Plan VTE Prophylaxis VTE Prophylaxis Intervention: SCD's Lines/Catheters IV C[facility]ter Type (from [facility] Urinary Cath still in place: No Assessment/Plan Chief Complaint/Hosp Course Assessment/Plan: 36 M with: 1. Status post ventricular fibrillation cardiac arrest with ROSC * s/p hypothermia protocol. * s/p LHC 07/06/16 with multivessel ds found. 2. S/p NSTEMI 2/2 severe multivessel CAD * S/p PCI with stent placement x1 to proximal ostial left anterior descending and x1 to proximal portion of the circumflex for chronic total occlusion 07/15/16 * s/p ballon pump - now off this ASA + Plavix -requires external defibrillator per CV rec's - monitor, f/u CV rec's 3. Vent dependent respiratory failure secondary to cardiac arrest - s/p extubation 4. Shock likely septic with a cardiogenic component -resolved 5. Severe systolic dysfunction with EF of 15 to 20% 6. Pulmonary edema - resolved 7. Bilateral pneumonia, possibly from aspiration - resolved - resp cultures 07/09: amadou 8. Chronic Tobacco user 10. Acute kidney injury, resolved. 11. Hyperglycemia : A1C 5.7: resolved - ISS 12. Diarrhea - Cdiff neg * Replace electrolytes and closely monitor * Further workup and management per clinical course. Problems: Subjective 24 Hr Interval Summary Free Text/Dictation Pt has less cp today, ambulating in the room, no acute events overnight. Exam/Review of Systems Vital Signs Vitals Vital Signs Date Time Temp Pulse Resp B/P Pulse Ox O2 Delivery O2 Flow Rate FiO2 07/22/16 08:21 72 07/22/16 07:40 98.0 19 108/67 99 07/21/16 11:45 Room Air Intake and Output 07/21/16 07/21/16 07/22/16 15:00 23:00 07:00 Intake Total 120 ml 400 ml Output Total 450 ml Balance 120 ml -50 ml Exam Constitutional: alert, oriented Eyes: PERRL Respiratory: clear to auscultation Cardiovascular: regular rate and rhythm, No murmurs/extra sounds Gastrointestinal: bowel sounds, non-tender, soft Neurological: lethargic Results Result Diagram: 07/22/16 0950 07/21/16 0535 Results 24 hrs Laboratory Tests Test 07/22/16 09:50 White Blood Count 12.3 #H Red Blood Count 3.69 L Hemoglobin 11.3 L Hematocrit 34.8 L Mean Corpuscular Volume 94.3 Mean Corpuscular Hemoglobin 30.6 Mean Corpuscular Hemoglobin Concent 32.5 Red Cell Distribution Width 13.6 Platelet Count 406 Mean Platelet Volume 8.9 Neutrophils % 71.4 Lymphocytes % 20.4 Monocytes % 5.4 Eosinophils % 0.8 Basophils % 0.9 Nucleated Red Blood Cells % 0.0 Neutrophils # 8.8 H Lymphocytes # 2.5 Monocytes # 0.7 Eosinophils # 0.1 Basophils # 0.1 Nucleated Red Blood Cells # 0.0 Medications Medications Current Medications Famotidine (Pepcid Iv) 20 mg Q12 IV Last administered on 07/22/16 08:11; Admin Dose 20 MG; Start 06/28/16 at 21:00 Meperidine HCl (Demerol) 25 mg Q4H PRN IV shivering post hypothermia pro Last administered on 07/18/16 03:23; Admin Dose 25 MG; Start 06/29/16 at 14:30 Dicyclomine HCl (Bentyl) 20 mg Q6H PRN NGT Hiccups Last administered on 09:54; Admin Dose 20 MG; Start 06/30/16 at 06:30 Miscellaneous Information 1 ea NOTE XX ; Start 06/30/16 at 09:30 Atorvastatin Calcium (Lipitor) 80 mg DAILY PO Last administered on 07/22/16 08 :23; Admin Dose 80 MG; Start 06/30/16 at 09:30 Amiodarone HCl (Cordarone) 400 mg BID PO Last administered on 07/22/16 08:17; Admin Dose 400 MG; Start 07/01/16 at 11:00 Morphine Sulfate (morphine) 2 mg Q2H PRN IV FOR NON CARDIAC PAIN (4-10) Last administered on 07/17/16 10:13; Admin Dose 2 MG; Start 07/06/16 at 10:30 Ondansetron HCl (Zofran Inj) 4 mg Q4H PRN IV NAUSEA AND/OR VOMITING; Start at 10:30 Guaifenesin (Robitussin Liquid Cup) 200 mg Q4H PRN PO COUGH Last administered on 07/12/16 17:16; Admin Dose 200 MG; Start 07/10/16 at 11:30 Phenol (Cepastat Lozenge) 1 lozenge Q1H PRN MT COUGH; Start 07/10/16 at 11:30 Lorazepam (Ativan) 1 mg Q4H PRN IV AGITATION; Start 07/11/16 at 13:00 Lisinopril (Zestril) 2.5 mg DAILY PO Last administered on 07/22/16 08:31; Admin Dose 2.5 MG; Start 07/12/16 at 09:00 Nystatin (Nystatin Susp) 5 ml QID PO Last administered on 07/22/16 08:28; Admin Dose 5 ML; Start 07/12/16 at 13:00 Haloperidol (Haldol) 1 mg BID PO Last administered on 07/22/16 08:21; Admin Dose 1 MG; Start 07/14/16 at 10:00 Aspirin (Ecotrin) 325 mg DAILY PO Last administered on 07/22/16 08:18; Admin Dose 325 MG; Start 07/16/16 at 09:00 Clopidogrel Bisulfate (plaVIX) 75 mg DAILY PO Last administered on 07/22/16 08 :16; Admin Dose 75 MG; Start 07/16/16 at 09:00 Acetaminophen (Tylenol Tab) 650 mg Q4H PRN PO NON-CARDIAC PAIN LEVEL 1-3; Start 07/15/16 at 11:30 Oxycodone/ Acetaminophen (Percocet (5/ 325)) 1 tab Q4H PRN PO REPORTED NON- CARDIAC PAIN 4-7 Last administered on 07/15/16 19:56; Admin Dose 1 TAB; Start at 11:30 Morphine Sulfate (morphine) 1 mg Q1H PRN IV PAIN NOT RELIEVED BY OTHERS Last administered on 07/15/16 12:41; Admin Dose 1 MG; Start 07/15/16 at 11:30 Al Hydrox/Mg Hydrox/Simethicone (Mag-Al Plus) 30 ml Q4H PRN PO GASTROINTESTINAL UPSET; Start 07/15/16 at 11:30 Furosemide (Lasix) 40 mg DAILY IV Last administered on 07/22/16 08:15; Admin Dose 40 MG; Start 07/22/16 at 09:00 BLACK CALVO July 22, 2016 10:58
--- NOTE | 2016-07-22 15:47 | CONS ---
Date/Time of Note Date/Time of Note DATE: 07/22/16 TIME: 15:42 Assessment/Plan Assessment/Plan Chief Complaint/Hosp Course IMPRESSION: 1. Positive troponin, consistent with a non-ST elevation myocardial infarction. -Peaked at 40 and now downtrending significantly. Now post-op s/p diagnostic LHC 07/06 with 3vd 100% RCA/LCX both seen via collateral flow and 90-95% prox LAD. Now Post-op s/p PTCA/stent x LAD x 1 to LCX with PTCA/stent 2. Status post cardiac arrest. 3. Cardiomyopathy, with a severely depressed left ventricular ejection fraction of approximately 15% to 20% by echo on this admission. s/p repeat Echo 07/06 limited EF last 25-30% 4. Respiratory failure. Status post intubation. 5. Ventricular fibrillation arrest, witnessed, status post defibrillator x1. 6. Encephalopathy. 7. Leukocytosis. 8. Anemia. 9. Hypotension-now improved and tolerating anti-hypertensives 10.Fevers Recc: -Tele -Follow for any recurrent bleeding -Continue PO amiodarone -Continue abx's and f/u cx data -Continue plavix/asa s/p PTCA/stent -Follow MS closely -Continue daily lasix -Zestril as tolerated only -add low dose BB Problems: Consultation Date/Type/Reason Admit Date/Time Jun 28, 2016 at 20:48 Initial Consult Date 06/29/16 Type of Consultation: Cardiology Reason for Consultation Cardiomyopathy Referring Provider: CHRISTINA JOSEPH Exam/Review of Systems Vital Signs Vitals Vital Signs Date Time Temp Pulse Resp B/P Pulse Ox O2 Delivery O2 Flow Rate FiO2 07/22/16 12:23 63 07/22/16 11:05 98.1 19 109/63 100 07/21/16 11:45 Room Air Intake and Output 07/21/16 07/21/16 07/22/16 14:59 22:59 06:59 Intake Total 120 ml 400 ml Output Total 450 ml Balance 120 ml -50 ml Exam Review of Systems: CONSTITUTIONAL: No fevers, chills. PULMONARY: No sob CARDIOVASCULAR: No chest pain/palpitations GASTROINTESTINAL: No nausea/vomiting. GENITOURINARY: No hematuria/dysuria. MUSCULOSKELETAL: No myagias/arthalgias. PSYCHIATRIC: The patient denies depression. NEUROLOGIC: improving MS slowly Constitutional: alert ENMT: mucosa pink and moist Neck: jvd (9 cm water), supple Respiratory: clear to auscultation Cardiovascular: regular rate and rhythm Gastrointestinal: non-tender, soft Musculoskeletal: muscle tone (normal) Extremities: edema (nonw) Neurological: other (some what slow to respond) Results Result Diagram: 07/22/16 0950 07/22/16 0950 Results 24 hrs Laboratory Tests Test 07/22/16 09:50 White Blood Count 12.3 #H Red Blood Count 3.69 L Hemoglobin 11.3 L Hematocrit 34.8 L Mean Corpuscular Volume 94.3 Mean Corpuscular Hemoglobin 30.6 Mean Corpuscular Hemoglobin Concent 32.5 Red Cell Distribution Width 13.6 Platelet Count 406 Mean Platelet Volume 8.9 Neutrophils % 71.4 Lymphocytes % 20.4 Monocytes % 5.4 Eosinophils % 0.8 Basophils % 0.9 Nucleated Red Blood Cells % 0.0 Neutrophils # 8.8 H Lymphocytes # 2.5 Monocytes # 0.7 Eosinophils # 0.1 Basophils # 0.1 Nucleated Red Blood Cells # 0.0 Sodium Level 140 Potassium Level 3.7 Chloride Level 98 Carbon Dioxide Level 25 Anion Gap 21 #H Blood Urea Nitrogen 17 Creatinine 1.00 Glucose Level 108 Calcium Level 9.5 Medications Medications Current Medications Famotidine (Pepcid Iv) 20 mg Q12 IV Last administered on 07/22/16 08:11; Admin Dose 20 MG; Start 06/28/16 at 21:00 Meperidine HCl (Demerol) 25 mg Q4H PRN IV shivering post hypothermia pro Last administered on 07/18/16 03:23; Admin Dose 25 MG; Start 06/29/16 at 14:30 Dicyclomine HCl (Bentyl) 20 mg Q6H PRN NGT Hiccups Last administered on 09:54; Admin Dose 20 MG; Start 06/30/16 at 06:30 Miscellaneous Information 1 ea NOTE XX ; Start 06/30/16 at 09:30 Atorvastatin Calcium (Lipitor) 80 mg DAILY PO Last administered on 07/22/16 08 :23; Admin Dose 80 MG; Start 06/30/16 at 09:30 Amiodarone HCl (Cordarone) 400 mg BID PO Last administered on 07/22/16 08:17; Admin Dose 400 MG; Start 07/01/16 at 11:00 Morphine Sulfate (morphine) 2 mg Q2H PRN IV FOR NON CARDIAC PAIN (4-10) Last administered on 07/17/16 10:13; Admin Dose 2 MG; Start 07/06/16 at 10:30 Ondansetron HCl (Zofran Inj) 4 mg Q4H PRN IV NAUSEA AND/OR VOMITING; Start at 10:30 Guaifenesin (Robitussin Liquid Cup) 200 mg Q4H PRN PO COUGH Last administered on 07/12/16 17:16; Admin Dose 200 MG; Start 07/10/16 at 11:30 Phenol (Cepastat Lozenge) 1 lozenge Q1H PRN MT COUGH; Start 07/10/16 at 11:30 Lorazepam (Ativan) 1 mg Q4H PRN IV AGITATION; Start 07/11/16 at 13:00 Lisinopril (Zestril) 2.5 mg DAILY PO Last administered on 07/22/16 08:31; Admin Dose 2.5 MG; Start 07/12/16 at 09:00 Nystatin (Nystatin Susp) 5 ml QID PO Last administered on 07/22/16 12:12; Admin Dose 5 ML; Start 07/12/16 at 13:00 Haloperidol (Haldol) 1 mg BID PO Last administered on 07/22/16 08:21; Admin Dose 1 MG; Start 07/14/16 at 10:00 Aspirin (Ecotrin) 325 mg DAILY PO Last administered on 07/22/16 08:18; Admin Dose 325 MG; Start 07/16/16 at 09:00 Clopidogrel Bisulfate (plaVIX) 75 mg DAILY PO Last administered on 07/22/16 08 :16; Admin Dose 75 MG; Start 07/16/16 at 09:00 Acetaminophen (Tylenol Tab) 650 mg Q4H PRN PO NON-CARDIAC PAIN LEVEL 1-3; Start 07/15/16 at 11:30 Oxycodone/ Acetaminophen (Percocet (5/ 325)) 1 tab Q4H PRN PO REPORTED NON- CARDIAC PAIN 4-7 Last administered on 07/15/16 19:56; Admin Dose 1 TAB; Start at 11:30 Morphine Sulfate (morphine) 1 mg Q1H PRN IV PAIN NOT RELIEVED BY OTHERS Last administered on 07/15/16 12:41; Admin Dose 1 MG; Start 07/15/16 at 11:30 Al Hydrox/Mg Hydrox/Simethicone (Mag-Al Plus) 30 ml Q4H PRN PO GASTROINTESTINAL UPSET; Start 07/15/16 at 11:30 Furosemide (Lasix) 40 mg DAILY IV Last administered on 07/22/16 08:15; Admin Dose 40 MG; Start 07/22/16 at 09:00 ELIGIO TYSON July 22, 2016 15:47
[2016-07-23] VITALS (9 sets, daily range): BP systolic 96–107; BP diastolic 54–64; PULSE 56–68; RESP 18
[2016-07-23] MEDS: NYSTATIN SUSP 5 ML CUP PO SCH ×2 (08:15→12:09)
[2016-07-23] MEDS: HALOPERIDOL 1 MG TAB PO SCH (08:15)
[2016-07-23] MEDS: ATORVASTATIN 80 MG TAB PO SCH (08:15)
[2016-07-23] MEDS: ASPIRIN (EC) 325 MG TAB PO SCH (08:15)
[2016-07-23] MEDS: CLOPIDOGREL 75 MG TAB PO SCH (08:16)
[2016-07-23] MEDS: AMIODARONE 200 MG TAB PO SCH (08:17)
[2016-07-23] MEDS: FUROSEMIDE 40 MG INJ IV SCH (08:17)
[2016-07-23] MEDS: FAMOTIDINE 20 MG INJ IV SCH (08:18)
[2016-07-23 08:27] LABS: ADD SCAN DIFF NO
[2016-07-23 08:37] LABS: BASOPHIL # 0.1 10^3/ul (0.0-0.1); EOSINOPHILS # 0.1 10^3/ul (0.0-0.5); EOSINOPHILS % 1.6 % (0.0-7.0); HEMATOCRIT 33.5 % (42.0-52.0); HEMOGLOBIN 10.9 g/dl (14.0-18.0); LYMPHOCYTES # 2.4 10^3/ul (0.8-2.9); LYMPHOCYTES % 27.3 % (15.0-51.0); MEAN CORPUSCULAR HEMOGLOBIN 30.8 pg (29.0-33.0); MEAN CORPUSCULAR HGB CONC 32.5 g/dl (32.0-37.0); MEAN CORPUSCULAR VOLUME 94.6 fl (82.0-101.0); MEAN PLATELET VOLUME 8.9 fl (7.4-10.4); MONOCYTE # 0.6 10^3/ul (0.3-0.9); MONOCYTES % 6.9 % (0.0-11.0); NEUTROPHIL # 5.6 10^3/ul (1.6-7.5); PLATELET COUNT 410 10^3/UL (140-415); RED BLOOD COUNT 3.54 10^6/ul (4.70-6.10); RED CELL DISTRIBUTION WIDTH 13.6 % (11.5-14.5)
[2016-07-23 09:04] LABS: CALCIUM 9.8 mg/dl (8.4-10.2); POTASSIUM 4.6 mmol/L (3.5-5.1)
[2016-07-23] MEDS: LISINOPRIL 5 MG TAB PO SCH (12:08)
--- NOTE | 2016-07-23 14:45 | PDOCDIS ---
Discharge Instructions CONDITION Patient Condition: Stable HOME CARE INSTRUCTIONS: Special Diet: cardiac diet ACTIVITY: Activity Restrictions: Slowly Increase Activity FOLLOW UP/APPOINTMENTS Appointments Please use your equipment and take your medications as prescribed, and see your doctor in the clinic in 1 week. BLACK CALVO July 23, 2016 14:45
[2016-07-23] MEDS ORDERED: ATOR80TA75 PO (14:46)
[2016-07-23] MEDS ORDERED: FURO-110 PO (14:46)
[2016-07-23] MEDS ORDERED: AMIO200T2 PO (14:46)
[2016-07-23] MEDS ORDERED: LISI-313 PO (14:46)
[2016-07-23] MEDS ORDERED: CLOP75TA28 PO (14:46)
[2016-07-23] MEDS ORDERED: Oxycodone/Acetamin (5/325) PO (14:48)
[2016-07-23] MEDS ORDERED: GUAI-637 PO (14:48)
[2016-07-23] MEDS ORDERED: ASPI-664 PO (14:48)
--- NOTE | 2016-07-23 15:48 | CONS ---
Date/Time of Note Date/Time of Note DATE: 07/23/16 TIME: 15:43 Assessment/Plan Assessment/Plan Additional Assessment/Plan NSTEMI CAD S/P Stenting of LAD and LcX Ischemic cardiomyopathy with EF 15-20% V. Fib arrest, S/P Cardiac Arrest Respirator failure Anemia. Hemodynamically stable Continue Lasix Started on Metoprolol Continue ASA and Plavix Continue Lisinopril Consultation Date/Type/Reason Admit Date/Time Jun 28, 2016 at 20:48 Constitutional: no complaints Gastrointestinal: no complaints Genitourinary: no complaints Musculoskeletal: no complaints Skin: no complaints Neurologic: no complaints Psychological: no complaints Past Medical History Medical History: other (Unknown) Past Surgical History Past Surgical Hx: other (Unknown) Social History Smoking Status: Current every day smoker Drug Use: other (Unknown) Exam/Review of Systems Vital Signs Vitals Vital Signs Date Time Temp Pulse Resp B/P Pulse Ox O2 Delivery O2 Flow Rate FiO2 07/23/16 15:12 98.0 61 18 102/55 98 07/21/16 11:45 Room Air Intake and Output 07/22/16 07/22/16 07/23/16 15:00 23:00 07:00 Intake Total 500 ml 400 ml Balance 500 ml 400 ml Exam Constitutional: alert, oriented Head: atraumatic, normocephalic Neck: non-tender, supple Respiratory: clear to auscultation Cardiovascular: regular rate and rhythm Gastrointestinal: nl liver, spleen, non-tender, soft Extremities: normal pulses Results Result Diagram: 07/23/16 0805 07/23/16 0805 Results 24 hrs Laboratory Tests Test 07/23/16 08:05 White Blood Count 9.0 # Red Blood Count 3.54 L Hemoglobin 10.9 L Hematocrit 33.5 L Mean Corpuscular Volume 94.6 Mean Corpuscular Hemoglobin 30.8 Mean Corpuscular Hemoglobin Concent 32.5 Red Cell Distribution Width 13.6 Platelet Count 410 Mean Platelet Volume 8.9 Neutrophils % 62.0 Lymphocytes % 27.3 Monocytes % 6.9 Eosinophils % 1.6 Basophils % 1.0 Nucleated Red Blood Cells % 0.0 Neutrophils # 5.6 Lymphocytes # 2.4 Monocytes # 0.6 Eosinophils # 0.1 Basophils # 0.1 Nucleated Red Blood Cells # 0.0 Sodium Level 137 Potassium Level 4.6 Chloride Level 102 Carbon Dioxide Level 26 Anion Gap 14 # Blood Urea Nitrogen 19 Creatinine 1.00 Glucose Level 96 Calcium Level 9.8 Medications Medications Current Medications Famotidine (Pepcid Iv) 20 mg Q12 IV Last administered on 07/23/16 08:18; Admin Dose 20 MG; Start 06/28/16 at 21:00 Meperidine HCl (Demerol) 25 mg Q4H PRN IV shivering post hypothermia pro Last administered on 07/18/16 03:23; Admin Dose 25 MG; Start 06/29/16 at 14:30 Dicyclomine HCl (Bentyl) 20 mg Q6H PRN NGT Hiccups Last administered on 09:54; Admin Dose 20 MG; Start 06/30/16 at 06:30 Miscellaneous Information 1 ea NOTE XX ; Start 06/30/16 at 09:30 Atorvastatin Calcium (Lipitor) 80 mg DAILY PO Last administered on 07/23/16 08 :15; Admin Dose 80 MG; Start 06/30/16 at 09:30 Amiodarone HCl (Cordarone) 400 mg BID PO Last administered on 07/23/16 08:17; Admin Dose 400 MG; Start 07/01/16 at 11:00 Morphine Sulfate (morphine) 2 mg Q2H PRN IV FOR NON CARDIAC PAIN (4-10) Last administered on 07/17/16 10:13; Admin Dose 2 MG; Start 07/06/16 at 10:30 Ondansetron HCl (Zofran Inj) 4 mg Q4H PRN IV NAUSEA AND/OR VOMITING; Start at 10:30 Guaifenesin (Robitussin Liquid Cup) 200 mg Q4H PRN PO COUGH Last administered on 07/12/16 17:16; Admin Dose 200 MG; Start 07/10/16 at 11:30 Phenol (Cepastat Lozenge) 1 lozenge Q1H PRN MT COUGH; Start 07/10/16 at 11:30 Lorazepam (Ativan) 1 mg Q4H PRN IV AGITATION; Start 07/11/16 at 13:00 Lisinopril (Zestril) 2.5 mg DAILY PO Last administered on 07/23/16 12:08; Admin Dose 2.5 MG; Start 07/12/16 at 09:00 Nystatin (Nystatin Susp) 5 ml QID PO Last administered on 07/23/16 12:09; Admin Dose 5 ML; Start 07/12/16 at 13:00 Haloperidol (Haldol) 1 mg BID PO Last administered on 07/23/16 08:15; Admin Dose 1 MG; Start 07/14/16 at 10:00 Aspirin (Ecotrin) 325 mg DAILY PO Last administered on 07/23/16 08:15; Admin Dose 325 MG; Start 07/16/16 at 09:00 Clopidogrel Bisulfate (plaVIX) 75 mg DAILY PO Last administered on 07/23/16 08 :16; Admin Dose 75 MG; Start 07/16/16 at 09:00 Acetaminophen (Tylenol Tab) 650 mg Q4H PRN PO NON-CARDIAC PAIN LEVEL 1-3; Start 07/15/16 at 11:30 Oxycodone/ Acetaminophen (Percocet (5/ 325)) 1 tab Q4H PRN PO REPORTED NON- CARDIAC PAIN 4-7 Last administered on 07/15/16 19:56; Admin Dose 1 TAB; Start at 11:30 Morphine Sulfate (morphine) 1 mg Q1H PRN IV PAIN NOT RELIEVED BY OTHERS Last administered on 07/15/16 12:41; Admin Dose 1 MG; Start 07/15/16 at 11:30 Al Hydrox/Mg Hydrox/Simethicone (Mag-Al Plus) 30 ml Q4H PRN PO GASTROINTESTINAL UPSET; Start 07/15/16 at 11:30 Furosemide (Lasix) 40 mg DAILY IV Last administered on 07/23/16 08:17; Admin Dose 40 MG; Start 07/22/16 at 09:00 MOSES ZHOU M.D. July 23, 2016 15:48
--- NOTE | 2016-07-23 15:58 | DS ---
DATE OF ADMISSION: 06/28/2016 DATE OF DISCHARGE: 07/23/2016 A 36-year-old male originally admitted on 06/28/2016, being discharged home on 07/23/2016. HOSPITAL COURSE: The patient initially came in with cardiac arrest and respiratory failure. He kee t to the intensive care unit. He was seen by multiple specialists during this hospital stay, includ ing the pulmonary team, cardiology team, cardiothoracic surgery team, infectious disease team and ph ysical therapy team. The patient had a status post ventricular fibrillation cardiac arrest, with re turn of spontaneous circulation. He was initially placed on hypothermic protocol. He underwent a l eft heart catheterization on 07/06/2016 and was found to have multivessel disease, and he also suffe red from a non-ST elevation myocardial infarction secondary to the severe multivessel coronary arter y disease. After a discussion between the cardiology and cardiothoracic surgery teams, it was decid ed that the patient would best benefit from a stent placement. Initially there was concern about po ssibly doing bypass surgery, but the patient was medically treated. He underwent stent placement to the proximal ostial left anterior descending and also a stent placement to the proximal portion of the circumflex on 07/15/2016. The patient tolerated the procedure well. Initially he was on a ball oon pump and that was taken off as well. He eventually was able to be extubated and was continued o n aspirin and Plavix medications. He was followed by all the senior treasury consultant teams as well. Initially h is echocardiogram showed an ejection fraction of 15 to 20%, mild concentric left ventricular hypertr ophy, severe global left ventricular systolic dysfunction, normal appearance and function of the ghada ral and tricuspid valves. Afterwards, again, the patient was placed on aspirin and Plavix, as well as other cardiac medications. His heart rate was monitored very carefully. He worked with physical therapy. He was slowly able to ambulate and tolerate a p.o. diet. His vital signs are stable on t he day of discharge. He was eventually given an external defibrillator which he will use at home. He was monitored for any further arrhythmias. He was also treated for bilateral pneumonia, thought to be aspiration pneumonia. He completed antibiotic treatment for that as well. Because the patien t is clinically improving and cleared by the senior treasury consultant teams, he will be discharged home today in i mproved condition. He will be sent with the following medications: 1. Amiodarone 400 mg b.i.d. 2. Aspirin 81 mg daily. 3. Atorvastatin 80 mg daily. 4. Plavix 75 mg daily. 5. Lasix 20 mg daily. 6. Guaifenesin 200 mg q.4 p.r.n. 7. Lisinopril 5 mg daily. 8. Percocet 1 tab p.o. q.4 p.r.n. He will need to follow up with the cardiology team on 08/02/2016, and also his primary care doctor. He has been given strict instructions about the importance of adhering to his aspirin and Plavix re gimen, given the fact that he has cardiac stents. FINAL DIAGNOSES: 1. Status post ventricular fibrillation cardiac arrest, with return of spontaneous circulation, sta tus post hypothermia protocol, status post left heart catheterization with multivessel disease found . 2. [id number] myocardial infarction secondary to severe multivessel coronary artery disease, status post stent placement to the proximal ostial left anterior descending, and also proximal porti on of the circumflex artery, status post balloon pump, now off of that. 3. Ventilator-dependent respiratory failure secondary to cardiac arrest. Now improved. 4. Shock. Likely a combination of septic and cardiogenic. Now improved. 5. Severe systolic dysfunction with an EF of 15-20% and slowly improving. 6. Bilateral pneumonia. Status post treatment with antibiotics. 7. Chronic tobacco use. He was counseled on cessation. 8. Acute kidney injury. Resolved. 9. Hyperglycemia. Hemoglobin A1c of 5.7. Resolved. 10. Diarrhea. Resolved. 11. Mild upper respiratory infection. Resolved. Dictated By: BLACK SALOMON Conf#: [id number] DID#: [id number]
[2016-07-23] MEDS ORDERED: METOPROLOL 25 MG TAB PO SCH (21:00)
== END 2016-07-23 16:31 | disposition home or self-care (01) | DRG 270 ==
LOC: E/R 16:41 → ICU 20:48 → TEL 07-12 20:50 → ICU 07-15 09:13 → MS4 07-18 12:12 → ICU 07-19 18:23 → TEL 07-21 11:50
PROVIDERS: ADMIT Family Medicine; ATTEND Family Medicine
PROC: 05HM33Z Insertion of Infusion Device into Right Internal Jugular Vein, Percutaneous Approach (ICD-10-PCS; 2016-06-28)
PROC: 5A1955Z Respiratory Ventilation, Greater than 96 Consecutive Hours (ICD-10-PCS; 2016-06-28)
PROC: 0BH17EZ Insertion of Endotracheal Airway into Trachea, Via Natural or Artificial Opening (ICD-10-PCS; 2016-06-28)
PROC: 4A023N7 Measurement of Cardiac Sampling and Pressure, Left Heart, Percutaneous Approach (ICD-10-PCS; 2016-07-06)
PROC: B211YZZ Fluoroscopy of Multiple Coronary Arteries using Other Contrast (ICD-10-PCS; 2016-07-06)
PROC: B211YZZ Fluoroscopy of Multiple Coronary Arteries using Other Contrast (ICD-10-PCS; 2016-07-15)
PROC: 4A023N7 Measurement of Cardiac Sampling and Pressure, Left Heart, Percutaneous Approach (ICD-10-PCS; 2016-07-15)
PROC: 027135Z Dilation of Coronary Artery, Two Arteries with Two Drug-eluting Intraluminal Devices, Percutaneous Approach (ICD-10-PCS; principal; 2016-07-15 09:00)
PROC: 5A02210 Assistance with Cardiac Output using Balloon Pump, Continuous (ICD-10-PCS; 2016-07-15 09:00)
DX: I21.4 Non-ST elevation (NSTEMI) myocardial infarction (principal); I49.01 Ventricular fibrillation; A41.9 Sepsis, unspecified organism; J96.91 Respiratory failure, unspecified with hypoxia; R65.21 Severe sepsis with septic shock; J69.0 Pneumonitis due to inhalation of food and vomit; G93.40 Encephalopathy, unspecified; J81.0 Acute pulmonary edema; I46.2 Cardiac arrest due to underlying cardiac condition; E87.2 Acidosis; N17.9 Acute kidney failure, unspecified; I42.9 Cardiomyopathy, unspecified; R73.9 Hyperglycemia, unspecified; R19.7 Diarrhea, unspecified; E87.6 Hypokalemia; I25.82 Chronic total occlusion of coronary artery; I25.10 Atherosclerotic heart disease of native coronary artery without angina pectoris; I25.5 Ischemic cardiomyopathy; J06.9 Acute upper respiratory infection, unspecified; F17.200 Nicotine dependence, unspecified, uncomplicated
CPT/HCPCS: 31500; 36415; 36600; 70450; 70551; 71010; 71275; 72125; 76937; 80048; 80053; 80061; 80069; 80076; 80202; 80306; 80307; 81001; 81003; 82150; 82310; 82550; 82553; 82803; 82962; 83036; 83605; 83690; 83735; 83880; 84100; 84132; 84436; 84443; 84479; 84484; 85025; 85384; 85610; 85730; 87040; 87070; 87075; 87081; 87086; 87400; 92610; 92943; 93005; 93306; 93308; 93454; 93970; 94002; 94003; 94770; 95819; 96365; 96368; 96375; 96376; 97116; 97162; 97530; C1725; C1726; C1760; C1769; C1874; C1876; C1887; C1894; C9600; J0282; J0583; J0692; J1250; J1644; J1650; J1815; J1940; J2001; J2060; J2175; J2185; J2250; J2270; J2543; J2997; J3010; J3370; J3475; J3480; J7030; J7040; J7050; J7060; Q9967